=== PATIENT | female | born 1985 | race Caucasian/White ===

== ENCOUNTER 2017-05-19 05:19 | Inpatient (IN) | payer MEDICAID ==
[2017-05-19] MEDS ORDERED: Ondansetron 4 MG/2 ML SDV IVPUSH ONE (05:29)
[2017-05-19] MEDS ORDERED: Sodium Chloride 0.9% 1,000 ML IV ONE ×3 (05:30→09:45)
[2017-05-19] MEDS ORDERED: Sodium Chloride 0.9% 1,000 ML IV SCH ×2 (05:30→06:45)
[2017-05-19] MEDS ORDERED: Ketorolac 30 MG/ML SDV IVPUSH ONE (05:44)
[2017-05-19] MEDS ORDERED: Pantoprazole 40 MG Vial IVPUSH ONE (05:44)
[2017-05-19 06:05] LABS: CHLORIDE,CL 94 mmol/L (98-110); SODIUM,NA 138 mmol/L (136-146)
--- NOTE | 2017-05-19 06:15 | EDM.PDOC ---
ED HPI GENERAL MEDICAL PROBLEM - General Chief Complaint: Abdominal Pain Stated Complaint: PANCREATITIS Time Seen by Provider: 05/19/17 05:49 - History of Present Illness INITIAL COMMENTS - FREE TEXT/NARRATIVE: HISTORY AND PHYSICAL: History of present illness: Patient is a 32-year-old white female presents with a concern of abdominal pain patient states she has history of pancreatitis she denies trauma fever chills vomiting diarrhea urinary symptoms vaginal discharge or irregular bleeding or other complaints Review of systems: As per history of present illness and below otherwise all systems reviewed and negative. Past medical history: As per history of present illness and as reviewed below otherwise noncontributory. Surgical history: As per history of present illness and as reviewed below otherwise noncontributory. Social history: No reported history of drug or alcohol abuse. Family history: As per history of present illness and as reviewed below otherwise noncontributory. Physical exam: HEENT: Atraumatic, normocephalic, pupils reactive, negative for conjunctival pallor or scleral icterus, mucous membranes moist, throat clear, neck supple, nontender, trachea midline. Lungs: Clear to auscultation, breath sounds equal bilaterally, chest nontender. Heart: S1S2, regular, negative for clicks, rubs, or JVD. Abdomen: Soft, nondistended, no localized tenderness. Negative for masses or hepatosplenomegaly. Negative for costovertebral tenderness. Pelvis: Stable nontender. Genitourinary: Deferred. Rectal: Deferred. Extremities: Atraumatic, negative for cords or calf pain. Neurovascular unremarkable. Neuro: Awake, alert, oriented. Cranial nerves II through XII unremarkable. Cerebellum unremarkable. Motor and sensory unremarkable throughout. Exam nonfocal. Diagnostics: CBC CMP amylase lipase UA hCG CT abdomen and pelvis with IV contrast Therapeutics: Normal saline 1 L bolus and Toradol 30 mg IV Zofran 4 mg IV Impression: #1 abdominal pain Definitive disposition and diagnosis as appropriate pending reevaluation and review of above. - Related Data Allergies Allergy/AdvReac Type Severity Reaction Status Date / Time No Known Allergies Allergy Verified 05/19/17 05:32 Home Meds: Home Meds . [No Known Home Meds] 05/19/17 [History] Past Medical History - Past Health History Medical/Surgical History: Denies Medical/Surgical History Gastrointestinal History: Reports: Pancreatitis Social & Family History - Family History Family Medical History: Noncontributory - Tobacco Use Smoking Status *Q: Never Smoker - Caffeine Use Caffeine Use: Reports: Soda - Recreational Drug Use Recreational Drug Use: No ED ROS GENERAL - Review of Systems Review Of Systems: ROS reveals no pertinent complaints other than HPI. ED EXAM, GENERAL - Physical Exam Exam: See Below (See dictation) Course - Vital Signs Last Recorded V/S: Last Vital Signs Temp 35.9 C 05/19/17 05:28 Pulse 121 H 05/19/17 05:28 Resp 20 05/19/17 05:28 BP 93/63 05/19/17 05:28 Pulse Ox 97 05/19/17 05:28 - Orders/Labs/Meds Orders: Active Orders 24 hr Category Date Time Status Abdomen Pelvis w Cont [CT] Stat Exams 05/19/17 05:47 Ordered ETHANOL BLOOD MEDICAL [CHEM] Stat Lab 05/19/17 07:02 Ordered cefTRIAXone [Rocephin in Dextrose,Iso-Osm 1 GM/50 ML] 1 Med 05/19/17 07:07 Ordered gm Premix Bag 1 bag IV ONETIME Medication Orders Ceftriaxone Sodium/Dextrose 1 (gm/ Premix) 50 mls @ 100 mls/hr IV ONETIME ONE Stop: 05/19/17 07:36 Labs: Laboratory Tests 05/19/17 05/19/17 05/19/17 Range/Units 05:32 05:32 05:32 WBC 17.46 H (4.0-11.0) K/uL RBC 4.58 (4.30-5.90) M/uL Hgb 15.1 (12.0-16.0) g/dL Hct 43.2 (36.0-46.0) % MCV 94.3 (80.0-98.0) fL MCH 33.0 H (27.0-32.0) pg MCHC 35.0 (31.0-37.0) g/dL RDW Std Deviation 44.2 (28.0-62.0) fl RDW Coeff of [place] 13 (11.0-15.0) % Plt Count 339 (150-400) K/uL MPV 8.60 (7.40-12.00) fL Neut % (Auto) 71.4 (48.0-80.0) % Lymph % (Auto) 19.2 (16.0-40.0) % [place] % (Auto) 8.1 (0.0-15.0) % Eos % (Auto) 1.0 (0.0-7.0) % Baso % (Auto) 0.3 (0.0-1.5) % Neut # (Auto) 12.5 H (1.4-5.7) K/uL Lymph # (Auto) 3.4 H (0.6-2.4) K/uL [facility] # (Auto) 1.4 H (0.0-0.8) K/uL Eos # (Auto) 0.2 (0.0-0.7) K/uL Baso # (Auto) 0.1 (0.0-0.1) K/uL Nucleated RBC % 0.0 /100WBC Nucleated RBCs # 0 K/uL Sodium 138 (136-146) mmol/L Potassium 3.1 L (3.5-5.1) mmol/L Chloride 94 L (98-110) mmol/L Carbon Dioxide 23 (21-31) mmol/L BUN 12 (6.0-23.0) mg/dL Creatinine 0.9 (0.6-1.5) mg/dL Est Cr Clr Drug Dosing 78.21 mL/min Estimated GFR (MDRD) > 60.0 ml/min Glucose 128 H (60-110) mg/dL Calcium 10.0 (8.8-10.8) mg/dL Total Bilirubin 0.5 (0.1-1.5) mg/dL AST 29 (5-40) IU/L ALT 22 (8-54) IU/L Alkaline Phosphatase 97 (40-150) Total Protein 8.3 H (6.0-8.0) g/dL Albumin 4.1 (3.5-5.0) g/dL Globulin 4.2 H (2.0-3.5) g/dL Albumin/Globulin Ratio 1.0 L (1.3-2.8) Amylase 422 H (10-90) U/L Lipase 1661 H (7-80) U/L Urine Color Urine Appearance Urine pH (5.0-8.0) Ur Specific Luck (1.001-1.035) Urine Protein (NEGATIVE) mg/dL Urine Glucose (UA) (NEGATIVE) mg/dL Urine Ketones (NEGATIVE) mg/dL Urine Occult Blood (NEGATIVE) Urine Nitrite (NEGATIVE) Urine Bilirubin (NEGATIVE) Urine Ictotest Urine Urobilinogen (<2.0) EU/dL Ur Leukocyte Esterase (NEGATIVE) Urine RBC (0-2/HPF) Urine WBC (0-5/HPF) Ur Epithelial Cells (NONE-FEW) Urine Bacteria (NEGATIVE) Urine HCG, Qual NEGATIVE (NEGATIVE) Urine Opiates Screen (NEGATIVE) Ur Oxycodone Screen (NEGATIVE) Urine Methadone Screen (NEGATIVE) Ur Barbiturates Screen (NEGATIVE) Ur Phencyclidine Scrn (NEGATIVE) Ur Amphetamine Screen (NEGATIVE) U Methamphetamines Scrn (NEGATIVE) U Benzodiazepines Scrn (NEGATIVE) U Cocaine Metab Screen (NEGATIVE) U Marijuana (THC) Screen (NEGATIVE) 05/19/17 05/19/17 Range/Units 06:40 06:40 WBC (4.0-11.0) K/uL RBC (4.30-5.90) M/uL Hgb (12.0-16.0) g/dL Hct (36.0-46.0) % MCV (80.0-98.0) fL MCH (27.0-32.0) pg MCHC (31.0-37.0) g/dL RDW Std Deviation (28.0-62.0) fl RDW Coeff of [place] (11.0-15.0) % Plt Count (150-400) K/uL MPV (7.40-12.00) fL Neut % (Auto) (48.0-80.0) % Lymph % (Auto) (16.0-40.0) % [facility] % (Auto) (0.0-15.0) % Eos % (Auto) (0.0-7.0) % Baso % (Auto) (0.0-1.5) % Neut # (Auto) (1.4-5.7) K/uL Lymph # (Auto) (0.6-2.4) K/uL [facility] # (Auto) (0.0-0.8) K/uL Eos # (Auto) (0.0-0.7) K/uL Baso # (Auto) (0.0-0.1) K/uL Nucleated RBC % /100WBC Nucleated RBCs # K/uL Sodium (136-146) mmol/L Potassium (3.5-5.1) mmol/L Chloride (98-110) mmol/L Carbon Dioxide (21-31) mmol/L BUN (6.0-23.0) mg/dL Creatinine (0.6-1.5) mg/dL Est Cr Clr Drug Dosing mL/min Estimated GFR (MDRD) ml/min Glucose (60-110) mg/dL Calcium (8.8-10.8) mg/dL Total Bilirubin (0.1-1.5) mg/dL AST (5-40) IU/L ALT (8-54) IU/L Alkaline Phosphatase (40-150) Total Protein (6.0-8.0) g/dL Albumin (3.5-5.0) g/dL Globulin (2.0-3.5) g/dL Albumin/Globulin Ratio (1.3-2.8) Amylase (10-90) U/L Lipase (7-80) U/L Urine Color YELLOW Urine Appearance CLOUDY Urine pH 5.5 (5.0-8.0) Ur Specific Luck >= 1.030 (1.001-1.035) Urine Protein 30 (NEGATIVE) mg/dL Urine Glucose (UA) NEGATIVE (NEGATIVE) mg/dL Urine Ketones 15 H (NEGATIVE) mg/dL Urine Occult Blood MODERATE (NEGATIVE) Urine Nitrite NEGATIVE (NEGATIVE) Urine Bilirubin MODERATE H (NEGATIVE) Urine Ictotest POSITIVE Urine Urobilinogen 0.2 (<2.0) EU/dL Ur Leukocyte Esterase SMALL (NEGATIVE) Urine RBC 8-12 (0-2/HPF) Urine WBC 20-25 (0-5/HPF) Ur Epithelial Cells MODERATE (NONE-FEW) Urine Bacteria 2+ H (NEGATIVE) Urine HCG, Qual (NEGATIVE) Urine Opiates Screen NEGATIVE (NEGATIVE) Ur Oxycodone Screen NEGATIVE (NEGATIVE) Urine Methadone Screen NEGATIVE (NEGATIVE) Ur Barbiturates Screen NEGATIVE (NEGATIVE) Ur Phencyclidine Scrn NEGATIVE (NEGATIVE) Ur Amphetamine Screen NEGATIVE (NEGATIVE) U Methamphetamines Scrn NEGATIVE (NEGATIVE) U Benzodiazepines Scrn NEGATIVE (NEGATIVE) U Cocaine Metab Screen NEGATIVE (NEGATIVE) U Marijuana (THC) Screen NEGATIVE (NEGATIVE) Meds: Medications Generic Name Dose Route Start Last Admin Trade Name Freq PRN Reason Stop Dose Admin Ceftriaxone Sodium/Dextrose 1 50 mls @ 100 mls/hr 05/19/17 07:07 gm/ Premix IV 05/19/17 07:36 ONETIME ONE Discontinued Medications Generic Name Dose Route Start Last Admin Trade Name Jackie PRN Reason Stop Dose Admin Hydromorphone HCl 1 mg 05/19/17 06:58 05/19/17 07:03 Dilaudid IVPUSH 05/19/17 06:59 1 mg ONETIME ONE Administration Sodium Chloride 1,000 mls @ 999 mls/hr 05/19/17 05:30 05/19/17 05:39 Normal Saline IV 999 mls/hr ASDIRECTED CARLITOS Administration Sodium Chloride 1,000 mls @ 999 mls/hr 05/19/17 05:30 05/19/17 07:00 Normal Saline IV 05/19/17 06:30 999 mls/hr .Bolus ONE Administration Ketorolac Tromethamine 30 mg 05/19/17 05:44 05/19/17 05:53 Toradol IVPUSH 05/19/17 05:45 30 mg ONETIME ONE Administration Ondansetron HCl 4 mg 05/19/17 05:29 05/19/17 05:39 Zofran IVPUSH 05/19/17 05:30 4 mg ONETIME ONE Administration Pantoprazole Sodium 40 mg 05/19/17 05:44 05/19/17 05:55 Protonix Iv IVPUSH 05/19/17 05:45 40 mg NOW ONE Administration Departure - Departure Time of Disposition: 07:07 Disposition: Refer to Observation Condition: Good Clinical Impression: Abdominal pain, Pancreatitis, UTI (urinary tract infection) - Discharge Information Referrals: PCP,None [Primary Care Provider] - Forms: ED Department Discharge - My Orders Last 24 Hours: My Active Orders 05/19/17 05:47 Abdomen Pelvis w Cont [CT] Stat 05/19/17 07:02 ETHANOL BLOOD MEDICAL [CHEM] Stat 05/19/17 07:07 cefTRIAXone [Rocephin in Dextrose,Iso-Osm 1 GM/50 ML] 1 gm Premix Bag 1 bag IV ONETIME - Assessment/Plan Last 24 Hours: My Active Orders 05/19/17 05:47 Abdomen Pelvis w Cont [CT] Stat 05/19/17 07:02 ETHANOL BLOOD MEDICAL [CHEM] Stat 05/19/17 07:07 cefTRIAXone [Rocephin in Dextrose,Iso-Osm 1 GM/50 ML] 1 gm Premix Bag 1 bag IV ONETIME
[2017-05-19] MEDS ORDERED: HYDROmorphone 1 MG/ML Syringe IVPUSH ONE (06:58)
[2017-05-19] MEDS ORDERED: cefTRIAXone 1 GM in Premix Bag 1 BAG IV ONE (07:07)
[2017-05-19] MEDS ORDERED: Iopamidol 755 MG/ML 500 ML Multipack Bottle IVPUSH STA (07:50)
[2017-05-19] MEDS ORDERED: Ondansetron 4 MG/2 ML SDV IVPUSH PRN (09:13)
[2017-05-19] MEDS ORDERED: Sodium Chloride 0.9% 2.5 ML Syringe FLUSH PRN (09:13)
[2017-05-19] MEDS ORDERED: Morphine 4 MG/ML Syringe IVPUSH PRN (09:13)
[2017-05-19] MEDS ORDERED: Sodium Chloride 0.9% 10 ML Syringe FLUSH PRN (09:13)
[2017-05-19] MEDS ORDERED: Sodium Chloride 0.45% 1,000 ML IV SCH (09:30)
[2017-05-19] MEDS ORDERED: LORazepam 2 MG/ML SDV IVPUSH PRN (09:46)
[2017-05-19] MEDS: HYDROmorphone 1 MG/ML Syringe IVPUSH PRN ×4 (10:17→22:10)
[2017-05-19] MEDS: Folic Acid 50 MG/10 ML MDV SUBCUT SCH (10:22)
--- NOTE | 2017-05-19 10:23 | PCM.HP ---
<Iraida Bishop M - Last Filed: 05/19/17 10:16> H&P History of Present Illness - General Date of Service: 05/19/17 Admit Problem/Dx: Admission Diagnosis/Problem Admission Diagnosis/Problem Pancreatitis Source of Information: Patient History Limitations: Reports: No Limitations - History of Present Illness Initial Comments - Free Text/Narative: This 32 year old female with pmh of alcoholic pancreatitis presented to the ED with concerns of abdominal and mid back pain that started 2 days ago, but worsened significantly this morning at 3 am. She reports she drinks approximately 5 drinks of vodka nightly. She denies waking up feeling like she needs to have a drink and doesn't get shaky. She reports having pancreatitis 3 other times over the last 2 years ad has been told she has a cyst on her pancreas, she has not seen a GI specialist or had a biopsy. She reports after the first time of pancreatitis she went to inpatient rehab in [place], [place]. But she continues to drink and reports not wanting to quit at this time. She denies drinking for emotional or mental health reasons, she reports its "hereditary". She denies CAD, HTN, or DM. She denies any other recreational drug use and no tobacco use. In the ED leukocytosis noted, 17,460, K+ 3.1, Cl 94, amylase 422, lipase 1661, Ua revealed UTI with + 2 bacteria, sm leuk esterase, WBC 20-25, neg nitrite. Ct revealed acute pancreatitis with moderate inflammation/edema surrounding the pancreas, there is a cystic lesion in the pancreatic head, which she is aware of from previous bouts of pancreatitis. UC pending. She wsa gien Rocephin and 2 l bolus in ED. She was noted to be tachycardic. - Related Data Allergies/Adverse Reactions: Allergies Allergy/AdvReac Type Severity Reaction Status Date / Time No Known Allergies Allergy Verified 05/19/17 05:32 Home Medications: Home Meds . [No Known Home Meds] 05/19/17 [History] Past Medical History - Past Health History Medical/Surgical History: Denies Medical/Surgical History Cardiovascular History: Reports: None. Denies: Afib, Blood Clots/VTE/DVT, CAD, High Cholesterol, Hypertension, SC Respiratory History: Reports: None. Denies: Asthma, COPD, PE, Sleep Apnea, SOB Gastrointestinal History: Reports: Pancreatitis Genitourinary History: Reports: None. Denies: Acute Renal Failure, Chronic Renal Insuffiency Musculoskeletal History: Reports: None Psychiatric History: Reports: Addiction (Alcohol) Endocrine/Metabolic History: Reports: None. Denies: Diabetes, Type II, Obesity/ BMI 30+ - Past Surgical History Head Surgeries/Procedures: Reports: None Social & Family History - Family History Family Medical History: Noncontributory - Tobacco Use Smoking Status *Q: Never Smoker - Caffeine Use Caffeine Use: Reports: Soda - Alcohol Use Days Per Week of Alcohol Use: 5 Number of Drinks Per Day: 10 Total Drinks Per Week: 50 Date of Last Drink: 05/19/17 Time of Last Drink: 21:00 Alcohol Use Frequency: Daily - Recreational Drug Use Recreational Drug Use: No H&P Review of Systems - Review of Systems: Review Of Systems: See Below General: Reports: No Symptoms. Denies: Fever, Chills, Malaise, Weakness HEENT: Reports: No Symptoms. Denies: Headaches, Sinus Congestion, Sore Throat Pulmonary: Reports: No Symptoms. Denies: Shortness of Breath, Wheezing, Cough, Sputum Cardiovascular: Reports: No Symptoms. Denies: Chest Pain, Palpitations, Edema, Lightheadedness Gastrointestinal: Reports: Abdominal Pain (epigastric radiates to back), Nausea. Denies: Black Stool, Bloody Stool, Decreased Appetite, Vomiting Genitourinary: Reports: No Symptoms. Denies: Dysuria, Frequency, Burning, Pain Musculoskeletal: Reports: No Symptoms Skin: Reports: No Symptoms Psychiatric: Reports: No Symptoms. Denies: Confusion Neurological: Reports: Tremors (scant tremors noted and very figidity.). Denies : Headache Hematologic/Lymphatic: Reports: No Symptoms Immunologic: Reports: No Symptoms Exam - Exam Exam: See Below - Vital Signs Vital Signs: Last Vital Signs Temp 96.7 F 05/19/17 05:28 Pulse 121 H 05/19/17 05:28 Resp 20 05/19/17 05:28 BP 93/63 05/19/17 05:28 Pulse Ox 97 05/19/17 05:28 Weight: 150 lb 5.684 oz - Exam General: Alert, Oriented, Cooperative HEENT: Conjunctiva Clear, Mucosa Moist & Aten, Pupils Reactive Lungs: Clear to Auscultation, Normal Respiratory Effort Cardiovascular: Regular Rate, Regular Rhythm GI/Abdominal Exam: Normal Bowel Sounds, Soft, No Organomegaly, No Distention, No Abnormal Bruit, No Mass, Pelvis Stable, Tender (epigastric). No: Guarding, Rigid Back Exam: Normal Inspection, Full Range of Motion, NT Extremities: Normal Inspection, Normal Range of Motion, Non-Tender, No Pedal Edema, Normal Capillary Refill Neuro Extensive - Mental Status: Alert, Oriented x3, Normal Mood/Affect, Normal Cognition Neuro Extensive - Motor, Sensory, Reflexes: Tremor (fine tremors noted, likely alcohol withdrawl.) Psychiatric: Alert, Normal Mood, Anxious - Patient Data Result Diagrams: 05/19/17 05:32 05/19/17 05:32 *Q Meaningful Use (ADM) - VTE *Q VTE Criteria *Q: - VTE Risk Assess *Q Each Risk Factor Represents 1 Point: Other Risk Factor Total Score 1 Point Risk Factors: 1 Each Risk Factor Represents 2 Points: None Total Score 2 Point Risk Factors: 0 Each Risk Factor Represents 3 Points: None Total Score 3 Point Risk Factors: 0 Each Risk Factor Represents 5 Points: None Total Score 5 Point Risk Factors: 0 Venous Thromboembolism Risk Factor Score *Q: 1 - Stroke *Q Stroke Criteria *Q: - AMI *Q AMI Criteria *Q: - Problem List (1) Acute alcoholic pancreatitis SNOMED Code(s): 241588206 ICD Code: K85.20 - ALCOHOL INDUCED ACUTE PANCREATITIS WITHOUT NECROSIS OR INFCT Status: Acute Current Visit: Yes QualifierTitle: Acute pancreatitis complication: no infection or necrosis Qualified Code(s): K85.20 - Alcohol induced acute pancreatitis without necrosis or infection (2) Abdominal pain SNOMED Code(s): 26048462 ICD Code: R10.9 - UNSPECIFIED ABDOMINAL PAIN Status: Acute Current Visit : Yes QualifierTitle: Abdominal location: epigastric Qualified Code(s): R10.13 - Epigastric pain (3) UTI (urinary tract infection) SNOMED Code(s): 39356989 ICD Code: N39.0 - URINARY TRACT INFECTION, SITE NOT SPECIFIED Status: Acute Current Visit: Yes QualifierTitle: Urinary tract infection type: acute cystitis Hematuria presence: without hematuria Qualified Code(s): N30.00 - Acute cystitis without hematuria (4) Alcohol abuse SNOMED Code(s): 74797745 ICD Code: F10.10 - ALCOHOL ABUSE, UNCOMPLICATED Status: Chronic Current Visit: Yes Problem List Initiated/Reviewed/Updated: Yes Orders Last 24hrs: Active Orders 24 hr Category Date Time Status Patient Status [ADT] Routine ADT 05/19/17 09:13 Active Bedrest Bathroom Privileges [RC] ASDIRECTED Care 05/19/17 09:13 Active CIWAA Assessment [RC] ASDIRECTED Care 05/19/17 09:24 Active Cardiac Monitoring [RC] CONTINUOUS Care 05/19/17 09:19 Inactive Intake and Output [RC] QSHIFT Care 05/19/17 09:19 Active May Shower [RC] ASDIRECTED Care 05/19/17 09:13 Active Oxygen Therapy [RC] PRN Care 05/19/17 09:13 Active Pulse Oximetry [RC] CONTINUOUS Care 05/19/17 09:15 Active Telemetry Monitoring [Cardiac Monitoring] [RC] . Care 05/19/17 09:23 Active DIRECTED VTE/DVT Education [RC] PER UNIT ROUTINE Care 05/19/17 09:13 Active Vital Signs [RC] Q4H Care 05/19/17 09:13 Active Nothing per Oral Now Diet [DIET] Diet 05/19/17 Breakfast Active CBC WITH AUTO DIFF [HEME] AM Lab 05/20/17 05:11 Ordered CBC WITH AUTO DIFF [HEME] AM Lab 05/21/17 05:11 Ordered CBC WITH AUTO DIFF [HEME] AM Lab 05/22/17 05:11 Ordered CBC WITH AUTO DIFF [HEME] AM Lab 05/23/17 05:11 Ordered CBC WITH AUTO DIFF [HEME] AM Lab 05/24/17 05:11 Ordered COMPREHENSIVE METABOLIC PN,CMP [CHEM] AM Lab 05/20/17 05:11 Ordered COMPREHENSIVE METABOLIC PN,CMP [CHEM] AM Lab 05/21/17 05:11 Ordered COMPREHENSIVE METABOLIC PN,CMP [CHEM] AM Lab 05/22/17 05:11 Ordered COMPREHENSIVE METABOLIC PN,CMP [CHEM] AM Lab 05/23/17 05:11 Ordered COMPREHENSIVE METABOLIC PN,CMP [CHEM] AM Lab 05/24/17 05:11 Ordered LIPASE [CHEM] DAILY Lab 05/20/17 05:00 Ordered LIPASE [CHEM] DAILY Lab 05/21/17 05:00 Ordered LIPASE [CHEM] DAILY Lab 05/22/17 05:00 Ordered MAGNESIUM [CHEM] DAILY Lab 05/20/17 05:00 Ordered MAGNESIUM [CHEM] DAILY Lab 05/21/17 05:00 Ordered MAGNESIUM [CHEM] DAILY Lab 05/22/17 05:00 Ordered PHOSPHORUS [CHEM] DAILY Lab 05/20/17 05:00 Ordered PHOSPHORUS [CHEM] DAILY Lab 05/21/17 05:00 Ordered PHOSPHORUS [CHEM] DAILY Lab 05/22/17 05:00 Ordered Folic Acid Med 05/19/17 10:00 Active 1 mg SUBCUT DAILY HYDROmorphone [Dilaudid] Med 05/19/17 09:46 Active 1 mg IVPUSH Q3H PRN LORazepam [Ativan] Med 05/19/17 09:46 Active See Protocol IVPUSH Q4H PRN Ondansetron [Zofran] Med 05/19/17 09:13 Active 4 mg IVPUSH Q4H PRN Sodium Chloride 0.9% [Normal Saline] 1,000 ml Med 05/19/17 09:45 Active IV .BOLUS Sodium Chloride 0.9% [Normal Saline] 1,000 ml Med 05/19/17 09:23 Active IV .Bolus Sodium Chloride 0.9% [Normal Saline] 1,000 ml Med 05/19/17 09:30 Active IV ASDIRECTED Sodium Chloride 0.9% [Saline Flush] Med 05/19/17 09:13 Active 10 ml FLUSH ASDIRECTED PRN Sodium Chloride 0.9% [Saline Flush] Med 05/19/17 09:13 Active 2.5 ml FLUSH ASDIRECTED PRN Thiamine [Vitamin B-1] Med 05/19/17 10:00 Active 100 mg IV DAILY Peripheral IV Insertion Adult [OM.PC] Routine Oth 05/19/17 09:13 Ordered Resuscitation Status Routine Resus Stat 05/19/17 09:13 Ordered Medication Orders Folic Acid (Folic Acid) 1 mg SUBCUT DAILY CARLITOS Hydromorphone HCl (Dilaudid) 1 mg IVPUSH Q3H PRN PRN Reason: Pain Sodium Chloride (Normal Saline) 1,000 mls @ 250 mls/hr IV ASDIRECTED CARLITOS Sodium Chloride (Normal Saline) 1,000 mls @ 999 mls/hr IV .Bolus ONE Stop: 05/19/17 10:23 Last Admin: 05/19/17 09:56 Dose: 999 mls/hr Sodium Chloride (Normal Saline) 1,000 mls @ 999 mls/hr IV .BOLUS ONE Stop: 05/19/17 10:45 Lorazepam (Ativan) 0 mg IVPUSH Q4H PRN; Protocol PRN Reason: CIWAA Ondansetron HCl (Zofran) 4 mg IVPUSH Q4H PRN PRN Reason: Nausea Sodium Chloride (Saline Flush) 10 ml FLUSH ASDIRECTED PRN PRN Reason: Keep Vein Open Sodium Chloride (Saline Flush) 2.5 ml FLUSH ASDIRECTED PRN PRN Reason: Keep Vein Open Thiamine HCl (Vitamin B-1) 100 mg IV DAILY CARLITOS Assessment/Plan Comment:: This 32 year old female admitted with acute alcoholic pancreatitis 1. Acute alcoholic pancreatitis: Will aggressively fluid hydrate, 2 L more bolus now, then NS 250 mls/hr. Will replace K+ with NS 40 meq today. Check magnesium and phosphorus due to alcoholism. Dilaudid for pain control and Zofran for nausea. NPO, may have scant ice chips. Recheck labwork in am, including lipase. Monitor on telemetry due to hypokalemia. 2. UTI: UC pending. Continue Rocephin. 3. Alcohol abuse: Will place on CIWAA protocol with Ativan. Has no hx of seizures from withdrawl. Place on Thiamine and folic acid daily. Monitor electrolytes. VTE prophylaxis: SCDs for now. Ambulating encouraged. DIspo: 3-4 days pending improvement. <Ariana Mccarty - Last Filed: 05/19/17 18:08> H&P History of Present Illness - General Admit Problem/Dx: Admission Diagnosis/Problem Admission Diagnosis/Problem Pancreatitis Epigastric Pain Score (Numeric/FACES): 6 Exam - Vital Signs Vital Signs: Last Vital Signs Temp 98.9 F 05/19/17 17:13 Pulse 88 05/19/17 17:13 Resp 20 05/19/17 17:13 BP 162/101 H 05/19/17 17:13 Pulse Ox 100 05/19/17 17:13 - Patient Data Result Diagrams: 05/19/17 05:32 05/19/17 05:32 *Q Meaningful Use (ADM) - VTE *Q VTE Criteria *Q: - Stroke *Q Stroke Criteria *Q: - AMI *Q AMI Criteria *Q: Orders Last 24hrs: Active Orders 24 hr Category Date Time Status Patient Status [ADT] Routine ADT 05/19/17 09:13 Active Antiembolic Devices [RC] PER UNIT ROUTINE Care 05/19/17 10:39 Active Bedrest Bathroom Privileges [RC] ASDIRECTED Care 05/19/17 09:13 Active CIWAA Assessment [RC] Q4H Care 05/19/17 09:24 Active Cardiac Monitoring [RC] CONTINUOUS Care 05/19/17 09:19 Inactive Intake and Output [RC] QSHIFT Care 05/19/17 09:19 Active May Shower [RC] ASDIRECTED Care 05/19/17 09:13 Active Oxygen Therapy [RC] PRN Care 05/19/17 09:13 Active Pulse Oximetry [RC] CONTINUOUS Care 05/19/17 09:15 Active Telemetry Monitoring [Cardiac Monitoring] [RC] . Care 05/19/17 09:23 Active DIRECTED VTE/DVT Education [RC] PER UNIT ROUTINE Care 05/19/17 09:13 Active Vital Signs [RC] Q4H Care 05/19/17 09:13 Active Nothing per Oral Now Diet [DIET] Diet 05/19/17 Breakfast Active CBC WITH AUTO DIFF [HEME] AM Lab 05/20/17 05:11 Ordered CBC WITH AUTO DIFF [HEME] AM Lab 05/21/17 05:11 Ordered CBC WITH AUTO DIFF [HEME] AM Lab 05/22/17 05:11 Ordered CBC WITH AUTO DIFF [HEME] AM Lab 05/23/17 05:11 Ordered CBC WITH AUTO DIFF [HEME] AM Lab 05/24/17 05:11 Ordered COMPREHENSIVE METABOLIC PN,CMP [CHEM] AM Lab 05/20/17 05:11 Ordered COMPREHENSIVE METABOLIC PN,CMP [CHEM] AM Lab 05/21/17 05:11 Ordered COMPREHENSIVE METABOLIC PN,CMP [CHEM] AM Lab 05/22/17 05:11 Ordered COMPREHENSIVE METABOLIC PN,CMP [CHEM] AM Lab 05/23/17 05:11 Ordered COMPREHENSIVE METABOLIC PN,CMP [CHEM] AM Lab 05/24/17 05:11 Ordered LIPASE [CHEM] DAILY Lab 05/20/17 05:00 Ordered LIPASE [CHEM] DAILY Lab 05/21/17 05:00 Ordered LIPASE [CHEM] DAILY Lab 05/22/17 05:00 Ordered MAGNESIUM [CHEM] DAILY Lab 05/20/17 05:00 Ordered MAGNESIUM [CHEM] DAILY Lab 05/21/17 05:00 Ordered MAGNESIUM [CHEM] DAILY Lab 05/22/17 05:00 Ordered PHOSPHORUS [CHEM] DAILY Lab 05/20/17 05:00 Ordered PHOSPHORUS [CHEM] DAILY Lab 05/21/17 05:00 Ordered PHOSPHORUS [CHEM] DAILY Lab 05/22/17 05:00 Ordered Folic Acid Med 05/19/17 10:00 Active 1 mg SUBCUT DAILY HYDROmorphone [Dilaudid] Med 05/19/17 09:46 Active 1 mg IVPUSH Q3H PRN LORazepam [Ativan] Med 05/19/17 09:46 Active See Protocol IVPUSH Q4H PRN Ondansetron [Zofran] Med 05/19/17 09:13 Active 4 mg IVPUSH Q4H PRN Sodium Chloride 0.9% [Normal Saline] 1,000 ml Med 05/19/17 09:30 Active IV ASDIRECTED Sodium Chloride 0.9% [Saline Flush] Med 05/19/17 09:13 Active 10 ml FLUSH ASDIRECTED PRN Sodium Chloride 0.9% [Saline Flush] Med 05/19/17 09:13 Active 2.5 ml FLUSH ASDIRECTED PRN Sodium Chloride 0.9% with KCl [Normal Saline with 40 Med 05/19/17 10:30 Active mEq KCl] 1,000 ml IV ASDIRECTED Thiamine [Vitamin B-1] Med 05/19/17 10:00 Active 100 mg IV DAILY cefTRIAXone [Rocephin in Dextrose,Iso-Osm 1 GM/50 ML] 1 Med 05/20/17 07:00 Active gm Premix Bag 1 bag IV Q24H Peripheral IV Insertion Adult [OM.PC] Routine Oth 05/19/17 09:13 Ordered SCD [Sequential Compression Device] [OM.PC] Routine Oth 05/19/17 10:39 Ordered Resuscitation Status Routine Resus Stat 05/19/17 09:13 Ordered Medication Orders Folic Acid (Folic Acid) 1 mg SUBCUT DAILY CARLITOS Last Admin: 05/19/17 10:22 Dose: 1 mg Hydromorphone HCl (Dilaudid) 1 mg IVPUSH Q3H PRN PRN Reason: Pain Last Admin: 05/19/17 14:02 Dose: 1 mg Admin: 05/19/17 10:17 Dose: 1 mg Sodium Chloride (Normal Saline) 1,000 mls @ 250 mls/hr IV ASDIRECTED CARLITOS Last Admin: 05/19/17 15:06 Dose: 250 mls/hr Potassium Chloride/Sodium Chloride (Normal Saline With 40 Meq Kcl) 1,000 mls @ 98.039 mls/hr IV ASDIRECTED CARLITOS Stop: 05/19/17 20:41 Last Admin: 05/19/17 12:49 Dose: 98.039 mls/hr Ceftriaxone Sodium/Dextrose 1 (gm/ Premix) 50 mls @ 100 mls/hr IV Q24H CARLITOS Lorazepam (Ativan) 0 mg IVPUSH Q4H PRN; Protocol PRN Reason: CIWAA Ondansetron HCl (Zofran) 4 mg IVPUSH Q4H PRN PRN Reason: Nausea Sodium Chloride (Saline Flush) 10 ml FLUSH ASDIRECTED PRN PRN Reason: Keep Vein Open Sodium Chloride (Saline Flush) 2.5 ml FLUSH ASDIRECTED PRN PRN Reason: Keep Vein Open Thiamine HCl (Vitamin B-1) 100 mg IV DAILY [facility] Last Admin: 05/19/17 10:26 Dose: 100 mg Assessment/Plan Comment:: Gi referral upon discharge Patient was counseled for more than 5 min to stop drinking.
[2017-05-19] MEDS: Thiamine 200 MG/2 ML MDV IV SCH (10:26)
[2017-05-19] MEDS ORDERED: Sodium Chloride 0.9% with KCl 1,000 ML IV SCH (10:30)
[2017-05-19] MEDS ORDERED: Magnesium Sulfate/Water 4 GM in Premix Bag 1 BAG IV ONE (11:02)
--- NOTE | 2017-05-19 12:54 | CT ---
EXAM DATE: 05/19/17 PATIENT'S AGE: 32 Patient: ALDEN BORGES Facility: [place], [place] Site . Site : [id number] Study: CT Abdomen/Pelvis [id number]/22/2017 7:56:48 AM Ordering Physician: Doctor Rinaldi Final Report: INDICATION: Mid abdominal pain. TECHNIQUE: CT abdomen and pelvis acquired with IV contrast. COMPARISON: None. FINDINGS: LOWER CHEST: Unremarkable. LIVER: Unremarkable. Normal in size and attenuation. No masses. GALLBLADDER AND BILE DUCTS: Unremarkable. No stones or inflammation. No biliary dilatation. PANCREAS: There is moderate inflammation/ edema surrounding the pancreas. There is a 1 cm cystic lesion in the pancreatic head on image 56. Pancreatic duct is normal in caliber. No other pancreatic abnormality. SPLEEN: Unremarkable. Normal in size. No masses. ADRENAL GLANDS: Unremarkable. No nodules. KIDNEYS: Unremarkable. No masses, stones, or hydronephrosis. GI TRACT: Unremarkable. Normal in caliber. No sign of mass or inflammation. VASCULATURE: Unremarkable. LYMPH NODES: No lymphadenopathy. OMENTUM/PERITONEUM/ABDOMINAL WALL: Unremarkable. No sign of mass or infiltration. No free air or significant free fluid. PELVIS: Unremarkable. BONES: Unremarkable for age. IMPRESSION: Acute pancreatitis. 1 cm cystic lesion in the pancreatic head could represent a benign cyst, cystic neoplasm, and less likely a pseudocyst. Remainder of the exam is unremarkable. Dictated by Grabiel Escoto MD @ 05/19/2017 8:12:55 AM Dictated by: Grabiel Escoto MD @ 05/19/2017 08:12:59 (Electronic Signature) Report Signed by Proxy. [facility]
[2017-05-19] MEDS: Sodium Chloride 0.9% 1,000 ML IV SCH ×2 (15:06→22:28)
[2017-05-20] MEDS: HYDROmorphone 1 MG/ML Syringe IVPUSH PRN ×7 (01:51→21:29)
[2017-05-20] MEDS: Sodium Chloride 0.9% 1,000 ML IV SCH ×4 (03:16→21:35)
[2017-05-20 05:36] LABS: CHLORIDE,CL 106 mmol/L (98-110); SODIUM,NA 135 mmol/L (136-146)
[2017-05-20] MEDS: cefTRIAXone 1 GM in Premix Bag 1 BAG IV SCH (07:40)
[2017-05-20] MEDS ORDERED: Magnesium Sulfate/Water 2 GM in Premix Bag 1 BAG IV ONE (09:30)
[2017-05-20] MEDS: Thiamine 200 MG/2 ML MDV IV SCH (09:59)
[2017-05-20] MEDS: Folic Acid 50 MG/10 ML MDV SUBCUT SCH (09:59)
[2017-05-20] MEDS: Phosphorus #1 250 MG Tab PO SCH ×2 (11:42→18:10)
--- NOTE | 2017-05-20 21:51 | PCM.PN ---
- General Info Date of Service: 05/20/17 Admission Dx/Problem (Free Text): Admission Diagnosis/Problem Admission Diagnosis/Problem Pancreatitis Subjective Update: Patient pain improved , lipase decreased to 700 , no nausea, no vomiting - Review of Systems General: Reports: No Symptoms HEENT: Reports: No Symptoms Pulmonary: Reports: No Symptoms Cardiovascular: Reports: No Symptoms Gastrointestinal: Reports: Abdominal Pain Genitourinary: Reports: No Symptoms Musculoskeletal: Reports: No Symptoms Skin: Reports: No Symptoms Neurological: Reports: No Symptoms Psychiatric: Reports: No Symptoms - Patient Data Vitals - Most Recent: Last Vital Signs Temp 97.8 F 05/20/17 20:00 Pulse 103 H 05/20/17 20:00 Resp 16 05/20/17 20:00 BP 130/85 05/20/17 20:00 Pulse Ox 92 L 05/20/17 20:00 Weight - Most Recent: 150 lb 5.684 oz I&O - Last 24 Hours: Intake & Output 05/20/17 05/20/17 05/20/17 06:59 14:59 22:59 Intake Total 1099 1050 2169 Output Total 200 2650 Balance 899 1050 -481 Lab Results Last 24 Hours: Laboratory Results - last 24 hr 05/20/17 05/20/17 05/20/17 Range/Units 04:41 04:41 04:41 WBC 9.63 (4.0-11.0) K/uL RBC 3.59 L (4.30-5.90) M/uL Hgb 11.7 L (12.0-16.0) g/dL Hct 35.3 L (36.0-46.0) % MCV 98.3 H (80.0-98.0) fL MCH 32.6 H (27.0-32.0) pg MCHC 33.1 (31.0-37.0) g/dL RDW Std Deviation 47.0 (28.0-62.0) fl RDW Coeff of [place] 13 (11.0-15.0) % Plt Count 228 (150-400) K/uL MPV 8.90 (7.40-12.00) fL Neut % (Auto) 63.0 (48.0-80.0) % Lymph % (Auto) 24.0 (16.0-40.0) % [place] % (Auto) 9.3 (0.0-15.0) % Eos % (Auto) 3.3 (0.0-7.0) % Baso % (Auto) 0.4 (0.0-1.5) % Neut # (Auto) 6.1 H (1.4-5.7) K/uL Lymph # (Auto) 2.3 (0.6-2.4) K/uL [place] # (Auto) 0.9 H (0.0-0.8) K/uL Eos # (Auto) 0.3 (0.0-0.7) K/uL Baso # (Auto) 0.0 (0.0-0.1) K/uL Nucleated RBC % 0.0 /100WBC Nucleated RBCs # 0 K/uL Sodium 135 L (136-146) mmol/L Potassium 3.5 (3.5-5.1) mmol/L Chloride 106 (98-110) mmol/L Carbon Dioxide 22 (21-31) mmol/L BUN 6 (6.0-23.0) mg/dL Creatinine 0.5 L (0.6-1.5) mg/dL Est Cr Clr Drug Dosing 140.78 mL/min Estimated GFR (MDRD) > 60.0 ml/min Glucose 80 (60-110) mg/dL Calcium 6.5 L (8.8-10.8) mg/dL Phosphorus 1.8 L (2.4-4.7) mg/dL Magnesium 1.3 L (1.5-2.3) mEq/L Total Bilirubin 0.8 (0.1-1.5) mg/dL AST 20 (5-40) IU/L ALT 12 (8-54) IU/L Alkaline Phosphatase 69 (40-150) Total Protein 5.3 L (6.0-8.0) g/dL Albumin 2.9 L (3.5-5.0) g/dL Globulin 2.4 (2.0-3.5) g/dL Albumin/Globulin Ratio 1.2 L (1.3-2.8) Lipase 759 H (7-80) U/L Med Orders - Current: Current Medications Folic Acid (Folic Acid) 1 mg SUBCUT DAILY [facility] Last Admin: 05/20/17 09:59 Dose: 1 mg Hydromorphone HCl (Dilaudid) 1 mg IVPUSH Q3H PRN PRN Reason: Pain Last Admin: 05/20/17 21:29 Dose: 1 mg Ceftriaxone Sodium/Dextrose 1 (gm/ Premix) 50 mls @ 100 mls/hr IV Q24H [facility] Last Admin: 05/20/17 07:40 Dose: 100 mls/hr Sodium Chloride (Normal Saline) 1,000 mls @ 150 mls/hr IV ASDIRECTED [facility] Last Admin: 05/20/17 21:35 Dose: 150 mls/hr Lorazepam (Ativan) 0 mg IVPUSH Q4H PRN; Protocol PRN Reason: CIWAA Ondansetron HCl (Zofran) 4 mg IVPUSH Q4H PRN PRN Reason: Nausea Sodium Chloride (Saline Flush) 10 ml FLUSH ASDIRECTED PRN PRN Reason: Keep Vein Open Sodium Chloride (Saline Flush) 2.5 ml FLUSH ASDIRECTED PRN PRN Reason: Keep Vein Open Sodium Phosphate (Neutra-Phos) 250 mg PO QID [facility] Stop: 05/21/17 09:00 Last Admin: 05/20/17 18:10 Dose: 250 mg Thiamine HCl (Vitamin B-1) 100 mg IV DAILY [facility] Last Admin: 05/20/17 09:59 Dose: 100 mg Discontinued Medications Hydromorphone HCl (Dilaudid) 1 mg IVPUSH ONETIME ONE Stop: 05/19/17 06:59 Last Admin: 05/19/17 07:03 Dose: 1 mg Sodium Chloride (Normal Saline) 1,000 mls @ 999 mls/hr IV ASDIRECTED [facility] Last Admin: 05/19/17 05:39 Dose: 999 mls/hr Sodium Chloride (Normal Saline) 1,000 mls @ 999 mls/hr IV .Bolus ONE Stop: 05/19/17 06:30 Last Admin: 05/19/17 07:00 Dose: 999 mls/hr Ceftriaxone Sodium/Dextrose 1 (gm/ Premix) 50 mls @ 100 mls/hr IV ONETIME ONE Stop: 05/19/17 07:36 Last Admin: 05/19/17 07:16 Dose: 100 mls/hr Sodium Chloride (Sodium Chloride 0.45%) 1,000 mls @ 150 mls/hr IV ASDIRECTED [facility] Sodium Chloride (Normal Saline) 1,000 mls @ 150 mls/hr IV ASDIRECTED [facility] Last Admin: 05/20/17 07:24 Dose: 250 mls/hr Sodium Chloride (Normal Saline) 1,000 mls @ 999 mls/hr IV .Bolus ONE Stop: 05/19/17 10:23 Last Admin: 05/19/17 09:56 Dose: 999 mls/hr Sodium Chloride (Normal Saline) 1,000 mls @ 999 mls/hr IV .BOLUS ONE Stop: 05/19/17 10:45 Last Admin: 05/19/17 11:35 Dose: 999 mls/hr Potassium Chloride/Sodium Chloride (Normal Saline With 40 Meq Kcl) 1,000 mls @ 98.039 mls/hr IV ASDIRECTED [facility] Stop: 05/19/17 20:41 Last Admin: 05/19/17 12:49 Dose: 98.039 mls/hr Magnesium Sulfate 4 gm/ Premix 100 mls @ 50 mls/hr IV ONETIME ONE Stop: 05/19/17 13:01 Last Admin: 05/19/17 12:50 Dose: 50 mls/hr Magnesium Sulfate 2 gm/ Premix 50 mls @ 50 mls/hr IV ONETIME ONE Stop: 05/20/17 10:29 Last Admin: 05/20/17 10:15 Dose: 50 mls/hr Iopamidol (Isovue Multipack-370 (76%)) 95 ml IVPUSH ONETIME STA Stop: 05/19/17 07:51 Last Admin: 05/19/17 07:52 Dose: 95 ml Ketorolac Tromethamine (Toradol) 30 mg IVPUSH ONETIME ONE Stop: 05/19/17 05:45 Last Admin: 05/19/17 05:53 Dose: 30 mg Morphine Sulfate (Morphine) 4 mg IVPUSH Q4H PRN PRN Reason: Pain (severe 7-10) Stop: 05/20/17 09:19 Last Admin: 05/19/17 09:29 Dose: 4 mg Ondansetron HCl (Zofran) 4 mg IVPUSH ONETIME ONE Stop: 05/19/17 05:30 Last Admin: 05/19/17 05:39 Dose: 4 mg Pantoprazole Sodium (Protonix Iv) 40 mg IVPUSH NOW ONE Stop: 05/19/17 05:45 Last Admin: 05/19/17 05:55 Dose: 40 mg - Exam General: Alert, Oriented HEENT: Pupils Equal, Pupils Reactive Neck: Supple, Trachea Midline Lungs: Clear to Auscultation, Normal Respiratory Effort Cardiovascular: Regular Rate, Regular Rhythm, No Murmurs GI/Abdominal Exam: Normal Bowel Sounds Back Exam: Normal Inspection Extremities: Normal Inspection - Problem List & Annotations (1) Pancreatic cyst SNOMED Code(s): 76642413 Code(s): K86.2 - CYST OF PANCREAS Status: Acute Current Visit: Yes (2) Abdominal pain SNOMED Code(s): 38543922 Code(s): R10.9 - UNSPECIFIED ABDOMINAL PAIN Status: Acute Current Visit: Yes Qualifiers: Abdominal location: epigastric Qualified Code(s): R10.13 - Epigastric pain (3) Acute alcoholic pancreatitis SNOMED Code(s): 970676216 Code(s): K85.20 - ALCOHOL INDUCED ACUTE PANCREATITIS WITHOUT NECROSIS OR INFCT Status: Acute Current Visit: Yes Qualifiers: Acute pancreatitis complication: no infection or necrosis Qualified Code(s) : K85.20 - Alcohol induced acute pancreatitis without necrosis or infection (4) UTI (urinary tract infection) SNOMED Code(s): 63834175 Code(s): N39.0 - URINARY TRACT INFECTION, SITE NOT SPECIFIED Status: Acute Current Visit: Yes Qualifiers: Urinary tract infection type: acute cystitis Hematuria presence: without hematuria Qualified Code(s): N30.00 - Acute cystitis without hematuria (5) Alcohol abuse SNOMED Code(s): 40108572 Code(s): F10.10 - ALCOHOL ABUSE, UNCOMPLICATED Status: Chronic Current Visit: Yes (6) Recurrent pancreatitis SNOMED Code(s): 531319638 Code(s): K86.1 - OTHER CHRONIC PANCREATITIS Status: Acute Current Visit: Yes (7) Disorder of electrolytes SNOMED Code(s): 718303847 Code(s): E87.8 - OTH DISORDERS OF ELECTROLYTE AND FLUID BALANCE, NEC Status : Acute Current Visit: Yes - Problem List Review Problem List Initiated/Reviewed/Updated: Yes - My Orders Last 24 Hours: My Active Orders 05/20/17 11:45 Sodium Chloride 0.9% [Normal Saline] 1,000 ml IV ASDIRECTED 05/20/17 12:00 Phosphorus #1 [Neutra-Phos] 250 mg PO QID 05/20/17 15:40 Communication Order [RC] DAILY 05/20/17 Dinner Full Liquid Diet [DIET] - Plan Plan:: A/p Recurrent acute pancreatitis pancreatic cyst alcohol abuse UTI Electrolytes disturbances Dvt prof Gi prof Plan will start patient on clear liquid diet and advance as tolerated , not more than full liquid diet today Pain management with Dilaudid, CIWA protocol , replace electrolytes, continue Rocephine1 gram iv q daily , replace electrolytes, Gi referral upon discharge, heparin sq, protonix iv for Gi prof.
[2017-05-21] MEDS: Phosphorus #1 250 MG Tab PO SCH ×2 (00:11→05:59)
[2017-05-21] MEDS: HYDROmorphone 1 MG/ML Syringe IVPUSH PRN ×3 (00:49→09:37)
[2017-05-21] MEDS: Sodium Chloride 0.9% 1,000 ML IV SCH (04:29)
[2017-05-21 06:11] LABS: CHLORIDE,CL 109 mmol/L (98-110); SODIUM,NA 138 mmol/L (136-146)
[2017-05-21] MEDS: cefTRIAXone 1 GM in Premix Bag 1 BAG IV SCH (06:33)
[2017-05-21] MEDS ORDERED: Magnesium Sulfate/Water 2 GM in Premix Bag 1 BAG IV ONE (08:19)
[2017-05-21] MEDS: Folic Acid 50 MG/10 ML MDV SUBCUT SCH (09:18)
[2017-05-21] MEDS: Thiamine 200 MG/2 ML MDV IV SCH (09:20)
--- NOTE | 2017-05-27 17:17 | PCM.DCSUM1 ---
Discharge Summary - Hospital Course HPI Initial Comments: This 32 year old female with pmh of alcoholic pancreatitis presented to the ED with concerns of abdominal and mid back pain that started 2 days ago, but worsened significantly this morning at 3 am. She reports she drinks approximately 5 drinks of vodka nightly. She denies waking up feeling like she needs to have a drink and doesn't get shaky. She reports having pancreatitis 3 other times over the last 2 years ad has been told she has a cyst on her pancreas, she has not seen a GI specialist or had a biopsy. She reports after the first time of pancreatitis she went to inpatient rehab in [place], [place]. But she continues to drink and reports not wanting to quit at this time. She denies drinking for emotional or mental health reasons, she reports its "hereditary". She denies CAD, HTN, or DM. She denies any other recreational drug use and no tobacco use. In the ED leukocytosis noted, 17,460, K+ 3.1, Cl 94, amylase 422, lipase 1661, Ua revealed UTI with + 2 bacteria, sm leuk esterase, WBC 20-25, neg nitrite. Ct revealed acute pancreatitis with moderate inflammation/edema surrounding the pancreas, there is a cystic lesion in the pancreatic head, which she is aware of from previous bouts of pancreatitis. UC pending. She wsa gien Rocephin and 2 l bolus in ED. She was noted to be tachycardic. - Discharge Data Discharge Date: 05/21/17 Discharge Disposition: Home, Self-Care 01 Condition: Good - Discharge Diagnosis/Problem(s) (1) Pancreatic cyst SNOMED Code(s): 56810905 ICD Code: K86.2 - CYST OF PANCREAS Status: Acute (2) Abdominal pain SNOMED Code(s): 18956609 ICD Code: R10.9 - UNSPECIFIED ABDOMINAL PAIN Status: Acute Qualifiers: Abdominal location: epigastric Qualified Code(s): R10.13 - Epigastric pain (3) Acute alcoholic pancreatitis SNOMED Code(s): 161463560 ICD Code: K85.20 - ALCOHOL INDUCED ACUTE PANCREATITIS WITHOUT NECROSIS OR INFCT Status: Acute Qualifiers: Acute pancreatitis complication: no infection or necrosis Qualified Code(s) : K85.20 - Alcohol induced acute pancreatitis without necrosis or infection (4) UTI (urinary tract infection) SNOMED Code(s): 03414443 ICD Code: N39.0 - URINARY TRACT INFECTION, SITE NOT SPECIFIED Status: Acute Qualifiers: Urinary tract infection type: acute cystitis Hematuria presence: without hematuria Qualified Code(s): N30.00 - Acute cystitis without hematuria (5) Alcohol abuse SNOMED Code(s): 66524816 ICD Code: F10.10 - ALCOHOL ABUSE, UNCOMPLICATED Status: Chronic (6) Recurrent pancreatitis SNOMED Code(s): 270007941 ICD Code: K86.1 - OTHER CHRONIC PANCREATITIS Status: Acute (7) Disorder of electrolytes SNOMED Code(s): 960987661 ICD Code: E87.8 - OTH DISORDERS OF ELECTROLYTE AND FLUID BALANCE, NEC Status: Acute - Patient Summary/Data Hospital Course: Patient admitted in the hospital with diagnostic of pancreatitis and alcohol abuse , UTI , was treated with iv fluid ,Rocephine iv , pain medication and NPO , CIWA protocol. Patient improved , tolerated diet and she was discharged home to f/up with PCP , patient was advised to stop drinking. - Discharge Plan Prescriptions/Med Rec: Sulfamethoxazole/Trimethoprim [Bactrim Ds Tablet] 1 each PO BID #14 tablet Home Medications: Home Meds Sulfamethoxazole/Trimethoprim [Bactrim Ds Tablet] 1 each PO BID #14 tablet 05/21 [Rx] Patient Handouts: Acute Pancreatitis, [id number], Sulfamethoxazole; Trimethoprim, SMX-TMP tablets Forms: ED Department Discharge Referrals: Winter Dejesus NP [Ordering Only Provider] - 07/15/17 1:00 pm (Winter GONG is at the [facility] in [place] at [address] [place] [address]. ) - Patient Data Vitals - Most Recent: Last Vital Signs Temp 98.1 F 05/21/17 08:00 Pulse 79 05/21/17 08:00 Resp 18 05/21/17 08:00 BP 129/91 H 05/21/17 08:00 Pulse Ox 95 05/21/17 08:00 Weight - Most Recent: 150 lb 5.684 oz Med Orders - Current: Current Medications Discontinued Medications Folic Acid (Folic Acid) 1 mg SUBCUT DAILY [facility] Last Admin: 05/21/17 09:18 Dose: 1 mg Hydromorphone HCl (Dilaudid) 1 mg IVPUSH ONETIME ONE Stop: 05/19/17 06:59 Last Admin: 05/19/17 07:03 Dose: 1 mg Hydromorphone HCl (Dilaudid) 1 mg IVPUSH Q3H PRN PRN Reason: Pain Last Admin: 05/21/17 09:37 Dose: 1 mg Sodium Chloride (Normal Saline) 1,000 mls @ 999 mls/hr IV ASDIRECTED [facility] Last Admin: 05/19/17 05:39 Dose: 999 mls/hr Sodium Chloride (Normal Saline) 1,000 mls @ 999 mls/hr IV .Bolus ONE Stop: 05/19/17 06:30 Last Admin: 05/19/17 07:00 Dose: 999 mls/hr Ceftriaxone Sodium/Dextrose 1 (gm/ Premix) 50 mls @ 100 mls/hr IV ONETIME ONE Stop: 05/19/17 07:36 Last Admin: 05/19/17 07:16 Dose: 100 mls/hr Sodium Chloride (Sodium Chloride 0.45%) 1,000 mls @ 150 mls/hr IV ASDIRECTED [facility] Sodium Chloride (Normal Saline) 1,000 mls @ 150 mls/hr IV ASDIRECTED [facility] Last Admin: 05/20/17 07:24 Dose: 250 mls/hr Sodium Chloride (Normal Saline) 1,000 mls @ 999 mls/hr IV .Bolus ONE Stop: 05/19/17 10:23 Last Admin: 05/19/17 09:56 Dose: 999 mls/hr Sodium Chloride (Normal Saline) 1,000 mls @ 999 mls/hr IV .BOLUS ONE Stop: 05/19/17 10:45 Last Admin: 05/19/17 11:35 Dose: 999 mls/hr Potassium Chloride/Sodium Chloride (Normal Saline With 40 Meq Kcl) 1,000 mls @ 98.039 mls/hr IV ASDIRECTED [facility] Stop: 05/19/17 20:41 Last Admin: 05/19/17 12:49 Dose: 98.039 mls/hr Ceftriaxone Sodium/Dextrose 1 (gm/ Premix) 50 mls @ 100 mls/hr IV Q24H [facility] Last Admin: 05/21/17 06:33 Dose: 100 mls/hr Magnesium Sulfate 4 gm/ Premix 100 mls @ 50 mls/hr IV ONETIME ONE Stop: 05/19/17 13:01 Last Admin: 05/19/17 12:50 Dose: 50 mls/hr Magnesium Sulfate 2 gm/ Premix 50 mls @ 50 mls/hr IV ONETIME ONE Stop: 05/20/17 10:29 Last Admin: 05/20/17 10:15 Dose: 50 mls/hr Sodium Chloride (Normal Saline) 1,000 mls @ 150 mls/hr IV ASDIRECTED [facility] Last Admin: 05/21/17 04:29 Dose: 150 mls/hr Magnesium Sulfate 2 gm/ Premix 50 mls @ 50 mls/hr IV ONETIME ONE Stop: 05/21/17 09:18 Last Admin: 05/21/17 09:21 Dose: 50 mls/hr Iopamidol (Isovue Multipack-370 (76%)) 95 ml IVPUSH ONETIME STA Stop: 05/19/17 07:51 Last Admin: 05/19/17 07:52 Dose: 95 ml Ketorolac Tromethamine (Toradol) 30 mg IVPUSH ONETIME ONE Stop: 05/19/17 05:45 Last Admin: 05/19/17 05:53 Dose: 30 mg Lorazepam (Ativan) 0 mg IVPUSH Q4H PRN; Protocol PRN Reason: CIWAA Morphine Sulfate (Morphine) 4 mg IVPUSH Q4H PRN PRN Reason: Pain (severe 7-10) Stop: 05/20/17 09:19 Last Admin: 05/19/17 09:29 Dose: 4 mg Ondansetron HCl (Zofran) 4 mg IVPUSH ONETIME ONE Stop: 05/19/17 05:30 Last Admin: 05/19/17 05:39 Dose: 4 mg Ondansetron HCl (Zofran) 4 mg IVPUSH Q4H PRN PRN Reason: Nausea Pantoprazole Sodium (Protonix Iv) 40 mg IVPUSH NOW ONE Stop: 05/19/17 05:45 Last Admin: 05/19/17 05:55 Dose: 40 mg Sodium Chloride (Saline Flush) 10 ml FLUSH ASDIRECTED PRN PRN Reason: Keep Vein Open Sodium Chloride (Saline Flush) 2.5 ml FLUSH ASDIRECTED PRN PRN Reason: Keep Vein Open Sodium Phosphate (Neutra-Phos) 250 mg PO QID [facility] Stop: 05/21/17 09:00 Last Admin: 05/21/17 05:59 Dose: 250 mg Thiamine HCl (Vitamin B-1) 100 mg IV DAILY [facility] Last Admin: 05/21/17 09:20 Dose: 100 mg *Q Meaningful Use (DIS) - VTE *Q VTE Criteria *Q: - Stroke *Q Stroke Criteria *Q: - AMI *Q AMI Criteria *Q:
== END 2017-05-21 11:25 | disposition home or self-care (01) | DRG 439 ==
LOC: MW.ED 05:19 → MW.MS 07:08 → OBSVTOIN 09:13 → MW.MS 17:16
PROVIDERS: ADMIT Internal Medicine; ATTEND Internal Medicine
DX: K85.20 Alcohol induced acute pancreatitis without necrosis or infection (principal); N39.0 Urinary tract infection, site not specified; K86.2 Cyst of pancreas; R10.13 Epigastric pain; F10.10 Alcohol abuse, uncomplicated; E87.8 Other disorders of electrolyte and fluid balance, not elsewhere classified; E87.6 Hypokalemia
CPT/HCPCS: 36415; 74177; 74177-26; 80053; 80305; 81001; 81025; 82150; 83690; 83735; 84100; 85025; 87086; 87088; 87186; 96361; 96365; 96375; 99283; 99285-25; A9270-GY; C9113; G0480; J0696; J1170; J1885; J2270; J2405; J3411; J3475; J3480; J7040; Q9967

== ENCOUNTER 2017-10-15 06:05 | Emergency (ER) | payer MEDICAID ==
[2017-10-15] MEDS ORDERED: Butorphanol 1 MG/ML SDV ONE (06:27)
[2017-10-15] MEDS ORDERED: Promethazine 25 MG/ML SDV ONE (06:27)
== END 2017-10-15 06:12 | disposition left against medical advice (07) ==
LOC: MW.ED 06:05
DX: Z53.21 Procedure and treatment not carried out due to patient leaving prior to being seen by health care provider (principal)

== ENCOUNTER 2017-11-03 07:04 | Emergency (ER) | payer MEDICAID ==
[2017-11-03] MEDS ORDERED: Sodium Chloride 0.9% 1,000 ML IV ONE (07:25)
[2017-11-03] MEDS ORDERED: Ondansetron 4 MG/2 ML SDV IVPUSH ONE (07:25)
[2017-11-03] MEDS ORDERED: Sodium Chloride 0.9% 10 ML Syringe FLUSH PRN (07:25)
[2017-11-03] MEDS ORDERED: Sodium Chloride 0.9% 2.5 ML Syringe FLUSH PRN (07:25)
--- NOTE | 2017-11-03 07:33 | EDM.PDOC ---
ED HPI GENERAL MEDICAL PROBLEM - General Chief Complaint: Abdominal Pain Stated Complaint: ABDOMINAL PAIN Time Seen by Provider: 11/03/17 07:10 Source of Information: Reports: Patient History Limitations: Reports: No Limitations - History of Present Illness INITIAL COMMENTS - FREE TEXT/NARRATIVE: History of present illness: []She has a history of alcoholic pancreatitis and presents with bilateral upper abdominal pain radiating to her shoulder blades that began 3 days ago. Patient denies any fevers but has had chills, nausea and vomiting. She denies any diarrhea, vaginal bleeding or difficulty urinating. Patient had an approximately 2 weeks ago at 19 weeks gestation in [place]. Review of systems: As per history of present illness and below otherwise all systems reviewed and negative. Past medical history: As per history of present illness and as reviewed below otherwise noncontributory. Surgical history: As per history of present illness and as reviewed below otherwise noncontributory. Social history: No reported history of drug or alcohol abuse. Family history: As per history of present illness and as reviewed below otherwise noncontributory. Physical exam: General: Well developed, well nourished in NAD HEENT: Atraumatic, normocephalic, pupils reactive, negative for conjunctival pallor or scleral icterus, mucous membranes moist, throat clear, neck supple, nontender, trachea midline. Lungs: Clear to auscultation, breath sounds equal bilaterally, chest nontender. Heart: S1S2, regular, negative for clicks, rubs, or JVD. Abdomen: Decreased bowel sounds, Soft, nondistended, upper abdominal tenderness without rebound or guarding. Negative for masses or hepatosplenomegaly. Negative for costovertebral tenderness. Pelvis: Stable nontender. Genitourinary: Deferred. Rectal: Deferred. Extremities: Atraumatic, negative for cords or calf pain. Neurovascular unremarkable. Neuro: Awake, alert, oriented. Cranial nerves II through XII unremarkable. Cerebellum unremarkable. Motor and sensory unremarkable throughout. Exam nonfocal. Diagnostics: []CBC is normal, chemistries normal lipase is within normal limits is negative Therapeutics: []She was IV hydrated with normal saline given morphine and Zofran pain and nausea Impression: []Epigastric pain likely GERD Plan: []Take Pepcid twice a day Tylenol for pain follow-up with primary care return if symptoms worsen or change Definitive disposition and diagnosis as appropriate pending reevaluation and review of above. upper abdomen, between shoulder blades Pain Score (Numeric/FACES): 7 - Related Data Allergies Allergy/AdvReac Type Severity Reaction Status Date / Time No Known Allergies Allergy Verified 11/03/17 07:20 Home Meds: Home Meds . [No Known Home Meds] 11/03/17 [History] Past Medical History - Past Health History Medical/Surgical History: Denies Medical/Surgical History Cardiovascular History: Reports: None Respiratory History: Reports: None Gastrointestinal History: Reports: Pancreatitis Genitourinary History: Reports: None Musculoskeletal History: Reports: None Psychiatric History: Reports: Addiction Other Psychiatric History: ETOH Endocrine/Metabolic History: Reports: None - Past Surgical History Head Surgeries/Procedures: Reports: None Social & Family History - Family History Family Medical History: Noncontributory Cardiac: Reports: [place] - Tobacco Use Smoking Status *Q: Never Smoker Second Hand Smoke Exposure: No - Caffeine Use Caffeine Use: Reports: Soda - Alcohol Use Days Per Week of Alcohol Use: 3 Number of Drinks Per Day: 3 Total Drinks Per Week: 9 - Recreational Drug Use Recreational Drug Use: No ED ROS GENERAL - Review of Systems Review Of Systems: See Below (See history of present illness) ED EXAM, GI/ABD - Physical Exam Exam: See Below (See history of present illness) Course - Vital Signs Last Recorded V/S: Last Vital Signs Temp 97.6 F 11/03/17 07:17 Pulse 105 H 11/03/17 07:17 Resp 18 11/03/17 07:17 BP 144/111 H 11/03/17 07:17 Pulse Ox 99 11/03/17 07:17 - Orders/Labs/Meds Orders: Active Orders 24 hr Category Date Time Status Sodium Chloride 0.9% [Saline Flush] Med 11/03/17 07:25 Active 10 ml FLUSH ASDIRECTED PRN Sodium Chloride 0.9% [Saline Flush] Med 11/03/17 07:25 Active 2.5 ml FLUSH ASDIRECTED PRN Saline Lock Insert [OM.PC] Stat Oth 11/03/17 07:24 Ordered Medication Orders Sodium Chloride (Saline Flush) 10 ml FLUSH ASDIRECTED PRN PRN Reason: Keep Vein Open Last Admin: 11/03/17 07:43 Dose: 10 ml Sodium Chloride (Saline Flush) 2.5 ml FLUSH ASDIRECTED PRN PRN Reason: Keep Vein Open Last Admin: 11/03/17 07:45 Dose: 2.5 ml Labs: Laboratory Tests 11/03/17 11/03/17 11/03/17 Range/Units 07:35 07:35 07:35 WBC 9.29 (4.0-11.0) K/uL RBC 4.18 L (4.30-5.90) M/uL Hgb 13.5 (12.0-16.0) g/dL Hct 40.0 (36.0-46.0) % MCV 95.7 (80.0-98.0) fL MCH 32.3 H (27.0-32.0) pg MCHC 33.8 (31.0-37.0) g/dL RDW Std Deviation 46.4 (28.0-62.0) fl RDW Coeff of [place] 13 (11.0-15.0) % Plt Count 292 (150-400) K/uL MPV 8.60 (7.40-12.00) fL Neut % (Auto) 63.7 (48.0-80.0) % Lymph % (Auto) 28.2 (16.0-40.0) % Jackson % (Auto) 5.8 (0.0-15.0) % Eos % (Auto) 2.0 (0.0-7.0) % Baso % (Auto) 0.3 (0.0-1.5) % Neut # (Auto) 5.9 H (1.4-5.7) K/uL Lymph # (Auto) 2.6 H (0.6-2.4) K/uL Jackson # (Auto) 0.5 (0.0-0.8) K/uL Eos # (Auto) 0.2 (0.0-0.7) K/uL Baso # (Auto) 0.0 (0.0-0.1) K/uL Nucleated RBC % 0.0 /100WBC Nucleated RBCs # 0 K/uL Sodium 138 (136-145) mmol/L Potassium 3.6 (3.5-5.1) mmol/L Chloride 102 (98-107) mmol/L Carbon Dioxide 23.3 (21.0-32.0) mmol/L BUN 7 (7.0-18.0) mg/dL Creatinine 0.7 (0.6-1.0) mg/dL Est Cr Clr Drug Dosing 100.55 mL/min Estimated GFR (MDRD) > 60.0 ml/min Glucose 98 (74-106) mg/dL Calcium 8.9 (8.5-10.1) mg/dL Total Bilirubin 0.2 (0.2-1.0) mg/dL AST 16 (15-37) IU/L ALT 23 (14-63) IU/L Alkaline Phosphatase 77 (46-116) U/L Total Protein 7.0 (6.4-8.2) g/dL Albumin 3.2 L (3.4-5.0) g/dL Globulin 3.8 H (2.0-3.5) g/dL Albumin/Globulin Ratio 0.8 L (1.3-2.8) Lipase 281 (73-393) U/L HCG, Quant 2.0 mIU/mL Blood Type 11/03/17 Range/Units 07:35 WBC (4.0-11.0) K/uL RBC (4.30-5.90) M/uL Hgb (12.0-16.0) g/dL Hct (36.0-46.0) % MCV (80.0-98.0) fL MCH (27.0-32.0) pg MCHC (31.0-37.0) g/dL RDW Std Deviation (28.0-62.0) fl RDW Coeff of [place] (11.0-15.0) % Plt Count (150-400) K/uL MPV (7.40-12.00) fL Neut % (Auto) (48.0-80.0) % Lymph % (Auto) (16.0-40.0) % Jackson % (Auto) (0.0-15.0) % Eos % (Auto) (0.0-7.0) % Baso % (Auto) (0.0-1.5) % Neut # (Auto) (1.4-5.7) K/uL Lymph # (Auto) (0.6-2.4) K/uL Jackson # (Auto) (0.0-0.8) K/uL Eos # (Auto) (0.0-0.7) K/uL Baso # (Auto) (0.0-0.1) K/uL Nucleated RBC % /100WBC Nucleated RBCs # K/uL Sodium (136-145) mmol/L Potassium (3.5-5.1) mmol/L Chloride (98-107) mmol/L Carbon Dioxide (21.0-32.0) mmol/L BUN (7.0-18.0) mg/dL Creatinine (0.6-1.0) mg/dL Est Cr Clr Drug Dosing mL/min Estimated GFR (MDRD) ml/min Glucose (74-106) mg/dL Calcium (8.5-10.1) mg/dL Total Bilirubin (0.2-1.0) mg/dL AST (15-37) IU/L ALT (14-63) IU/L Alkaline Phosphatase (46-116) U/L Total Protein (6.4-8.2) g/dL Albumin (3.4-5.0) g/dL Globulin (2.0-3.5) g/dL Albumin/Globulin Ratio (1.3-2.8) Lipase (73-393) U/L HCG, Quant mIU/mL Blood Type A POSITIVE Meds: Medications Generic Name Dose Route Start Last Admin Trade Name Freq PRN Reason Stop Dose Admin Sodium Chloride 10 ml 11/03/17 07:25 11/03/17 07:43 Saline Flush FLUSH 10 ml ASDIRECTED PRN Administration Keep Vein Open Sodium Chloride 2.5 ml 11/03/17 07:25 11/03/17 07:45 Saline Flush FLUSH 2.5 ml ASDIRECTED PRN Administration Keep Vein Open Discontinued Medications Generic Name Dose Route Start Last Admin Trade Name Freq PRN Reason Stop Dose Admin Famotidine 20 mg 11/03/17 08:48 Pepcid IVPUSH 11/03/17 08:49 ONETIME ONE Sodium Chloride 1,000 mls @ 999 mls/hr 11/03/17 07:25 11/03/17 07:43 Normal Saline IV 11/03/17 08:25 999 mls/hr .Bolus ONE Administration Morphine Sulfate 4 mg 11/03/17 07:49 11/03/17 07:57 Morphine IVPUSH 11/03/17 07:50 4 mg ONETIME ONE Administration Ondansetron HCl 4 mg 11/03/17 07:25 11/03/17 07:43 Zofran IVPUSH 11/03/17 07:26 4 mg ONETIME ONE Administration Departure - Departure Time of Disposition: 09:10 Disposition: Home, Self-Care 01 Condition: Good Clinical Impression: GERD (gastroesophageal reflux disease) Qualifiers: Esophagitis presence: esophagitis presence not specified Qualified Code(s): K21.9 - Gastro-esophageal reflux disease without esophagitis - Discharge Information Referrals: PCP,None [Primary Care Provider] - Forms: ED Department Discharge Additional Instructions: The following information is given to patients seen in the emergency department who are being discharged to home. This information is to outline your options for follow-up care. We provide all patients seen in our emergency department with a follow-up referral. The need for follow-up, as well as the timing and circumstances, are variable depending upon the specifics of your emergency department visit. If you don't have a primary care physician on staff, we will provide you with a referral. We always advise you to contact your personal physician following an emergency department visit to inform them of the circumstance of the visit and for follow-up with them and/or the need for any referrals to a consulting specialist. The emergency department will also refer you to a specialist when appropriate. This referral assures that you have the opportunity for follow-up care with a specialist. All of these measure are taken in an effort to provide you with optimal care, which includes your follow-up. Under all circumstances we always encourage you to contact your private physician who remains a resource for coordinating your care. When calling for follow-up care, please make the office aware that this follow-up is from your recent emergency room visit. If for any reason you are refused follow-up, please contact the [facility] Emergency Department at and asked to speak to the emergency department charge nurse. Take Pepcid twice a day, Tylenol for pain follow-up with your primary care doctor return if symptoms worsen or change - My Orders Last 24 Hours: My Active Orders 11/03/17 07:24 Saline Lock Insert [OM.PC] Stat 11/03/17 07:25 Sodium Chloride 0.9% [Saline Flush] 10 ml FLUSH ASDIRECTED PRN Sodium Chloride 0.9% [Saline Flush] 2.5 ml FLUSH ASDIRECTED PRN - Assessment/Plan Last 24 Hours: My Active Orders 11/03/17 07:24 Saline Lock Insert [OM.PC] Stat 11/03/17 07:25 Sodium Chloride 0.9% [Saline Flush] 10 ml FLUSH ASDIRECTED PRN Sodium Chloride 0.9% [Saline Flush] 2.5 ml FLUSH ASDIRECTED PRN
[2017-11-03] MEDS ORDERED: Morphine 4 MG/ML Syringe IVPUSH ONE (07:49)
[2017-11-03 08:27] LABS: CHLORIDE,CL 102 mmol/L (98-107); SODIUM,NA 138 mmol/L (136-145)
[2017-11-03] MEDS ORDERED: Famotidine 20 MG/2 ML SDV IVPUSH ONE (08:48)
== END 2017-11-03 09:31 | disposition home or self-care (01) ==
LOC: MW.ED 07:04
DX: K21.9 Gastro-esophageal reflux disease without esophagitis (principal)
CPT/HCPCS: 36415; 80053; 83690; 84702; 85025; 86900; 86901; 96361; 96374; 96375; 99284; J2270; J2405; J7040; 99283

== ENCOUNTER 2017-11-04 17:46 | Emergency (ER) | payer MEDICAID ==
[2017-11-04] MEDS ORDERED: Ketorolac 60 MG/2 ML SDV IM ONE (18:12)
--- NOTE | 2017-11-04 18:12 | EDM.PDOC ---
ED HPI GENERAL MEDICAL PROBLEM - General Chief Complaint: Back Pain or Injury Stated Complaint: SEVERE BACK PAIN Time Seen by Provider: 11/04/17 18:02 Source of Information: Reports: Patient History Limitations: Reports: No Limitations - History of Present Illness INITIAL COMMENTS - FREE TEXT/NARRATIVE: HISTORY AND PHYSICAL: History of present illness: Patient is a 32-year-old female who presents to the emergency room today with complaints of upper thoracic back pain. She states she has had this "unbearable " pain for the past 2-3 days. She denies any fever, chills, chest pain, shortness of breath, abdominal pain, nausea, vomiting, diarrhea or constipation. 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 She states she was given medication while here and had minimal pain relief; but not prescribed anything for home use. States that the thoracic back pain is midline and does not radiate anywhere. She has no numbness or tingling to her distal extremities. No urinary or fecal incontinence. She denies any recent injury, trauma or falls. Review of systems: As per history of present illness and below otherwise all systems reviewed and negative. Past medical history: As per history of present illness and as reviewed below otherwise noncontributory. Surgical history: As per history of present illness and as reviewed below otherwise noncontributory. Social history: No reported history of drug or alcohol abuse. Family history: As per history of present illness and as reviewed below otherwise noncontributory. Physical exam: General: Well-developed and well-nourished 32-year-old female. Alert and oriented. Nontoxic appearing and in no acute distress. HEENT: Atraumatic, normocephalic, pupils equal and reactive bilaterally, negative for conjunctival pallor or scleral icterus, mucous membranes moist, throat clear, neck supple, nontender, trachea midline. No drooling or trismus noted. No meningeal signs Lungs: Clear to auscultation, breath sounds equal bilaterally, chest nontender. Heart: S1S2, regular rate and rhythm without overt murmur Abdomen: Soft, nondistended, nontender. Negative for masses or hepatosplenomegaly. Negative for costovertebral tenderness. Pelvis: Stable nontender. Genitourinary: Deferred. Rectal: Deferred. C-spine/Back: Pinpoint vertebral tenderness upon palpation. No crepitus, step- offs or obvious deformities. Patient is ambulatory without difficulty or deficits. She has not been incontinent of urine or feces. Denies any numbness or tingling to her distal extremities. Skin: Intact, warm, dry. No lesions or rashes noted. Extremities: Atraumatic, moves all per self, negative for cords or calf pain. Neurovascular unremarkable. Neuro: Awake, alert, oriented. Cranial nerves II through XII unremarkable. Cerebellum unremarkable. Motor and sensory unremarkable throughout. Exam nonfocal. Notes: Patient recently had an , was approximately 20 weeks along. States she has had no OBGYN complications since procedure. Her most recent labs (11/03/2017) showed -negative HCG and normal CBC and CMP. Patient has no pinpoint vertebral tenderness upon her back evaluation. Skin is intact, warm, dry without erythema. Lab work which was done yesterday is within normal limits. She has no GI or abdominal complaints today. I will do a CT of her chest to rule out PE. She is agreeable to receiving Toradol and Norflex IM to assess if there is a muscular component to this. Patient feels improved after the IM injections. She does have a ride to home. I will prescribe her Flexeril and Cataflam. Encouraged her to follow up with her primary care provider. She voices understanding and is agreeable to plan of care. She denies any further questions at this time. Diagnostics: CT chest Therapeutics: IM Toradol and IM Norflex Impression: Thoracic back pain Plan: 1. Please take the Flexeril and Cataflam as prescribed. The Flexeril may cause drowsiness so do not take it while driving or needing to be functioning out of the house was illness. Do not take any additional NSAID such as ibuprofen or Aleve while taking the Cataflam. Please take with food. Take Tylenol for breakthrough pain. 2. Warm gentle heat and stretching to the area. 3. Follow up with your primary caregiver in the next 1-2 days. Return to the ED as needed and as discussed. Definitive disposition and diagnosis as appropriate pending reevaluation and review of above. Duration: Day(s): Upper Back Pain Score (Numeric/FACES): 8 - Related Data Allergies Allergy/AdvReac Type Severity Reaction Status Date / Time No Known Allergies Allergy Verified 11/04/17 17:55 Home Meds: Home Meds Non-Formulary Medication [NF Drug] 1 tab PO DAILY 11/04/17 [History] Past Medical History - Past Health History Medical/Surgical History: Denies Medical/Surgical History Cardiovascular History: Reports: None Respiratory History: Reports: None Gastrointestinal History: Reports: Pancreatitis Genitourinary History: Reports: None Musculoskeletal History: Reports: None Psychiatric History: Reports: Addiction Other Psychiatric History: ETOH Endocrine/Metabolic History: Reports: None - Past Surgical History Head Surgeries/Procedures: Reports: None Social & Family History - Family History Family Medical History: Noncontributory Cardiac: Reports: [place] - Tobacco Use Smoking Status *Q: Never Smoker - Caffeine Use Caffeine Use: Reports: Soda - Recreational Drug Use Recreational Drug Use: No ED ROS GENERAL - Review of Systems Review Of Systems: ROS reveals no pertinent complaints other than HPI. ED EXAM, UPPER BACK/NECK PAIN - Physical Exam Exam: See Below (See dictation) Course - Vital Signs Last Recorded V/S: Last Vital Signs Temp 98.3 F 11/04/17 19:09 Pulse 82 11/04/17 19:09 Resp 14 11/04/17 19:09 BP 137/92 H 11/04/17 19:09 Pulse Ox 99 11/04/17 19:09 - Orders/Labs/Meds Orders: Active Orders 24 hr Category Date Time Status Ang Chest [CT] Stat Exams 11/04/17 18:25 Taken Meds: Medications Discontinued Medications Generic Name Dose Route Start Last Admin Trade Name Freq PRN Reason Stop Dose Admin Ketorolac Tromethamine 60 mg 11/04/17 18:12 11/04/17 18:18 Toradol IM 11/04/17 18:13 60 mg ONETIME ONE Administration Orphenadrine Citrate 60 mg 11/04/17 18:12 11/04/17 18:18 Norflex IM 11/04/17 18:13 60 mg NOW STA Administration Departure - Departure Time of Disposition: 19:43 Disposition: Home, Self-Care 01 Clinical Impression: Thoracic back pain Qualifiers: Chronicity: acute Back pain laterality: midline Qualified Code(s): M54.6 - Pain in thoracic spine - Discharge Information Instructions: Thoracic Strain, [id number] Referrals: PCP,None [Primary Care Provider] - Forms: ED Department Discharge Additional Instructions: The following information is given to patients seen in the emergency department who are being discharged to home. This information is to outline your options for follow-up care. We provide all patients seen in our emergency department with a follow-up referral. The need for follow-up, as well as the timing and circumstances, are variable depending upon the specifics of your emergency department visit. If you don't have a primary care physician on staff, we will provide you with a referral. We always advise you to contact your personal physician following an emergency department visit to inform them of the circumstance of the visit and for follow-up with them and/or the need for any referrals to a consulting specialist. The emergency department will also refer you to a specialist when appropriate. This referral assures that you have the opportunity for follow-up care with a specialist. All of these measure are taken in an effort to provide you with optimal care, which includes your follow-up. Under all circumstances we always encourage you to contact your private physician who remains a resource for coordinating your care. When calling for follow-up care, please make the office aware that this follow-up is from your recent emergency room visit. If for any reason you are refused follow-up, please contact the [facility] Emergency Department at and asked to speak to the emergency department charge nurse. [facility] [address] [place] [id number]. Please take the Flexeril and Cataflam as prescribed. The Flexeril may cause drowsiness so do not take it while driving or needing to be functioning out of the house. Do not take any additional NSAID such as ibuprofen or Aleve while taking the Cataflam. Please take with food. Take Tylenol for breakthrough pain. 2. Warm gentle heat and stretching to the area. 3. Follow up with your primary caregiver in the next 1-2 days. Return to the ED as needed and as discussed. - My Orders Last 24 Hours: My Active Orders 11/04/17 18:25 Ang Chest [CT] Stat - Assessment/Plan Last 24 Hours: My Active Orders 11/04/17 18:25 Ang Chest [CT] Stat
--- NOTE | 2017-11-05 13:04 | CT ---
EXAM DATE: 11/04/17 PATIENT'S AGE: 32 Patient: ALDEN BORGES Facility: [place], [place] Site . Site : [id number] Study: CT Chest Angio [id number]/[id number] 6:53:30 PM Ordering Physician: Doctor Rinaldi Final Report: HISTORY: Back pain x2 days. Rule out pulmonary embolus. TECHNIQUE: The chest was scanned using helical technique at 1 mm after 50 cc [id number]. Sagittal and coronal reconstructions were performed. FINDINGS: Mediastinum and lashonda: Small mediastinal lymph nodes are present. No pathologic mediastinal or hilar lymphadenopathy. Cardiovascular structures: The thoracic aorta is normal in caliber. No dissection. The bolus in the pulmonary arteries is excellent at 372 Hounsfield units and the main pulmonary artery. No pulmonary embolus is identified. Heart is at the upper limits of normal. No pericardial effusion. Lungs and pleura: There is some dependent atelectasis posteriorly. No consolidation, pleural effusion or pneumothorax. Chest wall: No pathologic axillary lymphadenopathy. No chest wall mass. Upper abdomen: The visualized liver is homogeneous. Osseous structures: Normal for age. Peridiscal spurring is seen at T7-8. Visualized vertebral body heights maintained. IMPRESSION: 1. No pulmonary embolus is identified. 2. The thoracic aorta is free of aneurysm or dissection. 3. Dependent atelectasis in the posterior lungs. Dictated by Barbara Lindsey MD @ 11/04/2017 7:30:54 PM Please note that all CT scans at this facility use dose modulation, iterative reconstruction, and/or weight-based dosing when appropriate to reduce radiation dose to as low as reasonably achievable. Dictated by: Barbara Lindsey MD @ 11/04/2017 19:31:12 (Electronic Signature) Report Signed by Proxy. [facility]
== END 2017-11-04 19:50 | disposition home or self-care (01) ==
LOC: MW.ED 17:46
DX: M54.6 Pain in thoracic spine (principal)
CPT/HCPCS: 71275; 96372; 99284; J1885; J2360

== ENCOUNTER 2017-11-12 18:48 | Inpatient (IN) | payer MEDICAID ==
[2017-11-12] MEDS ORDERED: Ondansetron 4 MG/2 ML SDV IVPUSH ONE (19:15)
[2017-11-12] MEDS ORDERED: Ketorolac 30 MG/ML SDV IVPUSH ONE (19:15)
[2017-11-12] MEDS ORDERED: Sodium Chloride 0.9% 1,000 ML IV ONE (19:15)
--- NOTE | 2017-11-12 19:16 | EDM.PDOC ---
ED HPI GENERAL MEDICAL PROBLEM - General Chief Complaint: Abdominal Pain Stated Complaint: PT HAS STOMACH PAINS Time Seen by Provider: 11/12/17 19:16 Source of Information: Reports: Patient - History of Present Illness INITIAL COMMENTS - FREE TEXT/NARRATIVE: HISTORY AND PHYSICAL: History of present illness: Patient presents with epigastric pain 6 out of 10 radiating to the back since yesterday worsen today she does have a history of pancreatitis she did drink some alcohol and she developed pain clinically presuming pancreatitis for now we will follow lab and retract some intermittent nausea vomiting and diarrhea no prior surgery history on her abdomen No fever chills sweats no chest pain short of breath headache dizziness palpitation Review of systems: As per history of present illness and below otherwise all systems reviewed and negative. Past medical history: As per history of present illness and as reviewed below otherwise noncontributory. Surgical history: As per history of present illness and as reviewed below otherwise noncontributory. Social history: No reported history of drug or alcohol abuse. Family history: As per history of present illness and as reviewed below otherwise noncontributory. Physical exam: HEENT: Atraumatic, normocephalic, pupils reactive, negative for conjunctival pallor or scleral icterus, mucous membranes moist, throat clear, neck supple, nontender, trachea midline. Lungs: Clear to auscultation, breath sounds equal bilaterally, chest nontender. Heart: S1S2, regular, negative for clicks, rubs, or JVD. Abdomen: Soft, nondistended, nontender. Negative for masses or hepatosplenomegaly. Negative for costovertebral tenderness. Pelvis: Stable nontender. Genitourinary: Deferred. Rectal: Deferred. Extremities: Atraumatic, negative for cords or calf pain. Neurovascular unremarkable. Neuro: Awake, alert, oriented. Cranial nerves II through XII unremarkable. Cerebellum unremarkable. Motor and sensory unremarkable throughout. Exam nonfocal. Diagnostics: [CBC CMP and lipase UA hCG ]CT abdomen pelvis with contrast Therapeutics: [1 L normal saline bolus Zofran 8 mg IV Toradol 30 mg IV ] Impression: [ abdominal pain ] Definitive disposition and diagnosis as appropriate pending reevaluation and review of above. Upper Abd Pain Score (Numeric/FACES): 9 - Related Data Allergies Allergy/AdvReac Type Severity Reaction Status Date / Time No Known Allergies Allergy Verified 11/12/17 19:22 Home Meds: Home Meds Norgestimate-Ethinyl Estradiol [Ortho Tri-Cyclen 28 Tablet] 1 each PO DAILY [History] Past Medical History - Past Health History Medical/Surgical History: Denies Medical/Surgical History Cardiovascular History: Reports: None Respiratory History: Reports: None Gastrointestinal History: Reports: Pancreatitis Genitourinary History: Reports: None Musculoskeletal History: Reports: None Psychiatric History: Reports: Addiction Other Psychiatric History: ETOH Endocrine/Metabolic History: Reports: None - Past Surgical History Head Surgeries/Procedures: Reports: None Social & Family History - Family History Family Medical History: Noncontributory Cardiac: Reports: [place] - Caffeine Use Caffeine Use: Reports: Soda ED ROS GENERAL - Review of Systems Review Of Systems: ROS reveals no pertinent complaints other than HPI. ED EXAM, GENERAL - Physical Exam Exam: See Below Course - Vital Signs Last Recorded V/S: Last Vital Signs Temp 97.4 F 11/12/17 20:39 Pulse 88 11/12/17 20:39 Resp 18 11/12/17 20:39 BP 168/123 H 11/12/17 20:39 Pulse Ox 100 11/12/17 20:39 - Orders/Labs/Meds Orders: Active Orders 24 hr Category Date Time Status Abdomen Pelvis w Cont [CT] Stat Exams 11/12/17 19:32 Taken CULTURE BLOOD [BC] Stat Lab 11/12/17 20:42 Ordered CULTURE BLOOD [BC] Stat Lab 11/12/17 20:42 Ordered CULTURE URINE [RM] Stat Lab 11/12/17 19:40 Received HCG QUALITATIVE,URINE [URCHEM] Stat Lab 11/12/17 19:26 Ordered UA W/MICROSCOPIC [URIN] Stat Lab 11/12/17 19:26 Ordered Piperacillin/Tazobactam [Piperacil-Tazobact] 3.375 gm Med 11/12/17 20:42 Active Sodium Chloride 0.9% [Normal Saline] 50 ml IV ONETIME Sodium Chloride 0.9% [Normal Saline] 1,000 ml Med 11/12/17 21:00 Active IV ASDIRECTED Blood Culture x2 Reflex Set [OM.PC] Stat Oth 11/12/17 20:42 Ordered Medication Orders Piperacillin Sod/Tazobactam (Sod 3.375 gm/ Sodium Chloride) 50 mls @ 100 mls/ hr IV ONETIME ONE Stop: 11/12/17 21:11 Last Admin: 11/12/17 20:52 Dose: 100 mls/hr Sodium Chloride (Normal Saline) 1,000 mls @ 999 mls/hr IV ASDIRECTED CARLITOS Last Admin: 11/12/17 20:53 Dose: 999 mls/hr Labs: Laboratory Tests 11/12/17 11/12/17 11/12/17 Range/Units 19:22 19:22 19:22 WBC 13.00 H (4.0-11.0) K/uL RBC 4.27 L (4.30-5.90) M/uL Hgb 13.8 (12.0-16.0) g/dL Hct 40.1 (36.0-46.0) % MCV 93.9 (80.0-98.0) fL MCH 32.3 H (27.0-32.0) pg MCHC 34.4 (31.0-37.0) g/dL RDW Std Deviation 45.5 (28.0-62.0) fl RDW Coeff of [place] 13 (11.0-15.0) % Plt Count 334 (150-400) K/uL MPV 8.50 (7.40-12.00) fL Neut % (Auto) 62.2 (48.0-80.0) % Lymph % (Auto) 30.1 (16.0-40.0) % [place] % (Auto) 5.9 (0.0-15.0) % Eos % (Auto) 1.6 (0.0-7.0) % Baso % (Auto) 0.2 (0.0-1.5) % Neut # (Auto) 8.1 H (1.4-5.7) K/uL Lymph # (Auto) 3.9 H (0.6-2.4) K/uL [place] # (Auto) 0.8 (0.0-0.8) K/uL Eos # (Auto) 0.2 (0.0-0.7) K/uL Baso # (Auto) 0.0 (0.0-0.1) K/uL Nucleated RBC % 0.0 /100WBC Nucleated RBCs # 0 K/uL Sodium 135 L (136-145) mmol/L Potassium 4.0 (3.5-5.1) mmol/L Chloride 101 (98-107) mmol/L Carbon Dioxide 24.2 (21.0-32.0) mmol/L BUN 17 (7.0-18.0) mg/dL Creatinine 0.8 (0.6-1.0) mg/dL Est Cr Clr Drug Dosing 87.99 mL/min Estimated GFR (MDRD) > 60.0 ml/min Glucose 100 (74-106) mg/dL Calcium 8.3 L (8.5-10.1) mg/dL Total Bilirubin 0.6 (0.2-1.0) mg/dL AST 24 (15-37) IU/L ALT 19 (14-63) IU/L Alkaline Phosphatase 80 (46-116) U/L Total Protein 7.2 (6.4-8.2) g/dL Albumin 3.2 L (3.4-5.0) g/dL Globulin 4.0 H (2.0-3.5) g/dL Albumin/Globulin Ratio 0.8 L (1.3-2.8) Lipase 74592 H (73-393) U/L Urine Color Urine Appearance Urine pH (5.0-8.0) Ur Specific [place] (1.001-1.035) Urine Protein (NEGATIVE) mg/dL Urine Glucose (UA) (NEGATIVE) mg/dL Urine Ketones (NEGATIVE) mg/dL Urine Occult Blood (NEGATIVE) Urine Nitrite (NEGATIVE) Urine Bilirubin (NEGATIVE) Urine Urobilinogen (<2.0) EU/dL Ur Leukocyte Esterase (NEGATIVE) Urine RBC (0-2/HPF) Urine WBC (0-5/HPF) Ur Epithelial Cells (NONE-FEW) Urine Bacteria (NEGATIVE) Urine HCG, Qual (NEGATIVE) Ethyl Alcohol < 3.0 mg/dL 11/12/17 11/12/17 Range/Units 19:26 19:26 WBC (4.0-11.0) K/uL RBC (4.30-5.90) M/uL Hgb (12.0-16.0) g/dL Hct (36.0-46.0) % MCV (80.0-98.0) fL MCH (27.0-32.0) pg MCHC (31.0-37.0) g/dL RDW Std Deviation (28.0-62.0) fl RDW Coeff of [place] (11.0-15.0) % Plt Count (150-400) K/uL MPV (7.40-12.00) fL Neut % (Auto) (48.0-80.0) % Lymph % (Auto) (16.0-40.0) % [place] % (Auto) (0.0-15.0) % Eos % (Auto) (0.0-7.0) % Baso % (Auto) (0.0-1.5) % Neut # (Auto) (1.4-5.7) K/uL Lymph # (Auto) (0.6-2.4) K/uL [place] # (Auto) (0.0-0.8) K/uL Eos # (Auto) (0.0-0.7) K/uL Baso # (Auto) (0.0-0.1) K/uL Nucleated RBC % /100WBC Nucleated RBCs # K/uL Sodium (136-145) mmol/L Potassium (3.5-5.1) mmol/L Chloride (98-107) mmol/L Carbon Dioxide (21.0-32.0) mmol/L BUN (7.0-18.0) mg/dL Creatinine (0.6-1.0) mg/dL Est Cr Clr Drug Dosing mL/min Estimated GFR (MDRD) ml/min Glucose (74-106) mg/dL Calcium (8.5-10.1) mg/dL Total Bilirubin (0.2-1.0) mg/dL AST (15-37) IU/L ALT (14-63) IU/L Alkaline Phosphatase (46-116) U/L Total Protein (6.4-8.2) g/dL Albumin (3.4-5.0) g/dL Globulin (2.0-3.5) g/dL Albumin/Globulin Ratio (1.3-2.8) Lipase (73-393) U/L Urine Color YELLOW Urine Appearance CLOUDY Urine pH 7.0 (5.0-8.0) Ur Specific [place] 1.025 (1.001-1.035) Urine Protein TRACE (NEGATIVE) mg/dL Urine Glucose (UA) NEGATIVE (NEGATIVE) mg/dL Urine Ketones NEGATIVE (NEGATIVE) mg/dL Urine Occult Blood LARGE H (NEGATIVE) Urine Nitrite NEGATIVE (NEGATIVE) Urine Bilirubin NEGATIVE (NEGATIVE) Urine Urobilinogen 1.0 (<2.0) EU/dL Ur Leukocyte Esterase SMALL (NEGATIVE) Urine RBC 6-10 (0-2/HPF) Urine WBC 18-20 (0-5/HPF) Ur Epithelial Cells MANY (NONE-FEW) Urine Bacteria 2+ H (NEGATIVE) Urine HCG, Qual NEGATIVE (NEGATIVE) Ethyl Alcohol mg/dL Meds: Medications Generic Name Dose Route Start Last Admin Trade Name Freq PRN Reason Stop Dose Admin Piperacillin Sod/Tazobactam 50 mls @ 100 mls/hr 11/12/17 20:42 11/12/17 20:52 Sod 3.375 gm/ Sodium Chloride IV 11/12/17 21:11 100 mls/hr ONETIME ONE Administration Sodium Chloride 1,000 mls @ 999 mls/hr 11/12/17 21:00 11/12/17 20:53 Normal Saline IV 999 mls/hr ASDIRECTED CARLITOS Administration Discontinued Medications Generic Name Dose Route Start Last Admin Trade Name Freq PRN Reason Stop Dose Admin Sodium Chloride 1,000 mls @ 999 mls/hr 11/12/17 19:15 11/12/17 19:37 Normal Saline IV 11/12/17 20:15 999 mls/hr STAT ONE Administration Iopamidol 100 ml 11/12/17 20:14 11/12/17 20:15 Isovue Multipack-370 (76%) IVPUSH 11/12/17 20:15 100 ml ONETIME STA Administration Ketorolac Tromethamine 30 mg 11/12/17 19:15 11/12/17 19:37 Toradol IVPUSH 11/12/17 19:16 30 mg ONETIME ONE Administration Morphine Sulfate 2 mg 11/12/17 20:04 11/12/17 20:10 Morphine IVPUSH 11/12/17 20:05 2 mg ONETIME ONE Administration Ondansetron HCl 8 mg 11/12/17 19:15 11/12/17 19:40 Zofran IVPUSH 11/12/17 19:16 8 mg ONETIME ONE Administration Departure - Departure Time of Disposition: 20:59 Disposition: Admitted As Inpatient 67 Condition: Poor Clinical Impression: Pancreatitis - Discharge Information Referrals: PCP,None [Primary Care Provider] - Forms: ED Department Discharge - My Orders Last 24 Hours: My Active Orders 11/12/17 19:26 HCG QUALITATIVE,URINE [URCHEM] Stat UA W/MICROSCOPIC [URIN] Stat 11/12/17 19:32 Abdomen Pelvis w Cont [CT] Stat 11/12/17 19:40 CULTURE URINE [RM] Stat 11/12/17 20:42 CULTURE BLOOD [BC] Stat CULTURE BLOOD [BC] Stat Piperacillin/Tazobactam [Piperacil-Tazobact] 3.375 gm Sodium Chloride 0.9% [ Normal Saline] 50 ml IV ONETIME Blood Culture x2 Reflex Set [OM.PC] Stat 11/12/17 21:00 Sodium Chloride 0.9% [Normal Saline] 1,000 ml IV ASDIRECTED - Assessment/Plan Last 24 Hours: My Active Orders 11/12/17 19:26 HCG QUALITATIVE,URINE [URCHEM] Stat UA W/MICROSCOPIC [URIN] Stat 11/12/17 19:32 Abdomen Pelvis w Cont [CT] Stat 11/12/17 19:40 CULTURE URINE [RM] Stat 11/12/17 20:42 CULTURE BLOOD [BC] Stat CULTURE BLOOD [BC] Stat Piperacillin/Tazobactam [Piperacil-Tazobact] 3.375 gm Sodium Chloride 0.9% [ Normal Saline] 50 ml IV ONETIME Blood Culture x2 Reflex Set [OM.PC] Stat 11/12/17 21:00 Sodium Chloride 0.9% [Normal Saline] 1,000 ml IV ASDIRECTED
[2017-11-12 19:52] LABS: CHLORIDE,CL 101 mmol/L (98-107); SODIUM,NA 135 mmol/L (136-145)
[2017-11-12] MEDS ORDERED: Morphine 4 MG/ML Syringe IVPUSH ONE (20:04)
[2017-11-12] MEDS ORDERED: Iopamidol 755 MG/ML 500 ML Multipack Bottle IVPUSH STA (20:14)
[2017-11-12] MEDS ORDERED: Piperacillin/Tazobactam 3.375 GM in Sodium Chloride 0.9% 50 ML IV ONE (20:42)
[2017-11-12] MEDS ORDERED: Sodium Chloride 0.9% 1,000 ML IV SCH ×2 (21:00→21:15)
[2017-11-12] MEDS ORDERED: Albuterol/Ipratropium 3.0-0.5 MG/3 ML Neb Soln NEB PRN (21:54)
[2017-11-12] MEDS ORDERED: Morphine 10 MG/ML Syringe IVPUSH PRN (21:54)
[2017-11-12] MEDS ORDERED: Sodium Chloride 0.9% 2.5 ML Syringe FLUSH PRN (21:54)
[2017-11-12] MEDS ORDERED: Sodium Chloride 0.9% 10 ML Syringe FLUSH PRN (21:54)
[2017-11-13] MEDS: HYDROmorphone 2 MG/ML SDV IVPUSH PRN ×6 (03:12→21:45)
[2017-11-13] MEDS: Lactated Ringers 1,000 ML IV SCH ×3 (04:04→19:35)
[2017-11-13 07:13] LABS: CHLORIDE,CL 107 mmol/L (98-107); SODIUM,NA 136 mmol/L (136-145)
--- NOTE | 2017-11-13 15:49 | PCM.HP ---
H&P History of Present Illness - General Date of Service: 11/13/17 Admit Problem/Dx: Admission Diagnosis/Problem Admission Diagnosis/Problem Pancreatitis Source of Information: Patient - History of Present Illness Initial Comments - Free Text/Narative: Patient is 32y old female who presented to ER due to sudden onset of back pain and upper abdominal pain after she drank a small glass of vodka. She had endoscopic ultrasound at [place] in July, with DR. Armas and was told that "her cyst is gone and she has scarring in the pancreas". Had repeated episodes of pancreatitis and complain of chronic pain in the back .She says she drinks regularly vodka 3 glasses a day since age 21, graduated college , currently is unemployed and lives with her boyfriend who works in [employer]. Her abdominal pain was associated with nausea , no vomiting. Her last episode of pancreatitis was 1 month ago . Onset of Symptoms: Reports: Sudden Quality: Reports: Pressure Upper Abd Pain Score (Numeric/FACES): 5 - Related Data Allergies/Adverse Reactions: Allergies Allergy/AdvReac Type Severity Reaction Status Date / Time No Known Allergies Allergy Verified 11/12/17 19:22 Home Medications: Home Meds Norgestimate-Ethinyl Estradiol [Ortho Tri-Cyclen 28 Tablet] 1 each PO DAILY [History] Past Medical History - Past Health History Medical/Surgical History: Denies Medical/Surgical History Cardiovascular History: Reports: None Respiratory History: Reports: None Gastrointestinal History: Reports: Pancreatitis Genitourinary History: Reports: None Musculoskeletal History: Reports: None Psychiatric History: Reports: Addiction Other Psychiatric History: ETOH Endocrine/Metabolic History: Reports: None - Infectious Disease History Infectious Disease History: Reports: Chicken Pox - Past Surgical History Head Surgeries/Procedures: Reports: None Social & Family History - Family History Family Medical History: Noncontributory Cardiac: Reports: [place] - Tobacco Use Smoking Status *Q: Never Smoker Second Hand Smoke Exposure: No - Caffeine Use Caffeine Use: Reports: Soda - Alcohol Use Number of Drinks Per Day: 3 Date of Last Drink: 11/11/17 - Recreational Drug Use Recreational Drug Use: No H&P Review of Systems - Review of Systems: Review Of Systems: See Below General: Reports: No Symptoms HEENT: Reports: No Symptoms Pulmonary: Reports: No Symptoms Cardiovascular: Reports: No Symptoms Gastrointestinal: Reports: Abdominal Pain, Nausea Genitourinary: Reports: No Symptoms Musculoskeletal: Reports: No Symptoms Skin: Reports: No Symptoms Psychiatric: Reports: No Symptoms Neurological: Reports: No Symptoms Hematologic/Lymphatic: Reports: No Symptoms Immunologic: Reports: No Symptoms Exam - Exam Exam: See Below - Vital Signs Vital Signs: Last Vital Signs Temp 97.2 F 11/13/17 12:00 Pulse 91 11/13/17 12:00 Resp 22 H 11/13/17 12:00 BP 117/84 11/13/17 12:00 Pulse Ox 98 11/13/17 12:00 Weight: 166 lb 7.184 oz - Exam General: Alert, Oriented, Cooperative HEENT: Conjunctiva Clear, EACs Clear Neck: Supple, Trachea Midline Lungs: Clear to Auscultation, Normal Respiratory Effort Cardiovascular: Regular Rate, Regular Rhythm, Normal S1, Normal S2 GI/Abdominal Exam: Normal Bowel Sounds, Soft, No Organomegaly, No Distention, Tender Back Exam: Normal Inspection Extremities: Normal Inspection Skin: Warm, Dry, Intact Neurological: Cranial Nerves Intact Neuro Extensive - Mental Status: Alert, Oriented x3, Normal Mood/Affect, Normal Cognition Neuro Extensive - Motor, Sensory, Reflexes: CN II-XII Intact, Normal Gait, Normal Reflexes Psychiatric: Alert, Normal Affect, Normal Mood - Patient Data Lab Results Last 24 hrs: Laboratory Results - last 24 hr 11/12/17 11/12/17 11/12/17 Range/Units 19:22 19:22 19:22 WBC 13.00 H (4.0-11.0) K/uL RBC 4.27 L (4.30-5.90) M/uL Hgb 13.8 (12.0-16.0) g/dL Hct 40.1 (36.0-46.0) % MCV 93.9 (80.0-98.0) fL MCH 32.3 H (27.0-32.0) pg MCHC 34.4 (31.0-37.0) g/dL RDW Std Deviation 45.5 (28.0-62.0) fl RDW Coeff of [place] 13 (11.0-15.0) % Plt Count 334 (150-400) K/uL MPV 8.50 (7.40-12.00) fL Neut % (Auto) 62.2 (48.0-80.0) % Lymph % (Auto) 30.1 (16.0-40.0) % [place] % (Auto) 5.9 (0.0-15.0) % Eos % (Auto) 1.6 (0.0-7.0) % Baso % (Auto) 0.2 (0.0-1.5) % Neut # (Auto) 8.1 H (1.4-5.7) K/uL Lymph # (Auto) 3.9 H (0.6-2.4) K/uL [place] # (Auto) 0.8 (0.0-0.8) K/uL Eos # (Auto) 0.2 (0.0-0.7) K/uL Baso # (Auto) 0.0 (0.0-0.1) K/uL Nucleated RBC % 0.0 /100WBC Nucleated RBCs # 0 K/uL Sodium 135 L (136-145) mmol/L Potassium 4.0 (3.5-5.1) mmol/L Chloride 101 (98-107) mmol/L Carbon Dioxide 24.2 (21.0-32.0) mmol/L BUN 17 (7.0-18.0) mg/dL Creatinine 0.8 (0.6-1.0) mg/dL Est Cr Clr Drug Dosing 87.99 mL/min Estimated GFR (MDRD) > 60.0 ml/min Glucose 100 (74-106) mg/dL Calcium 8.3 L (8.5-10.1) mg/dL Total Bilirubin 0.6 (0.2-1.0) mg/dL AST 24 (15-37) IU/L ALT 19 (14-63) IU/L Alkaline Phosphatase 80 (46-116) U/L Total Protein 7.2 (6.4-8.2) g/dL Albumin 3.2 L (3.4-5.0) g/dL Globulin 4.0 H (2.0-3.5) g/dL Albumin/Globulin Ratio 0.8 L (1.3-2.8) Lipase 55696 H (73-393) U/L Urine Color Urine Appearance Urine pH (5.0-8.0) Ur Specific [place] (1.001-1.035) Urine Protein (NEGATIVE) mg/dL Urine Glucose (UA) (NEGATIVE) mg/dL Urine Ketones (NEGATIVE) mg/dL Urine Occult Blood (NEGATIVE) Urine Nitrite (NEGATIVE) Urine Bilirubin (NEGATIVE) Urine Urobilinogen (<2.0) EU/dL Ur Leukocyte Esterase (NEGATIVE) Urine RBC (0-2/HPF) Urine WBC (0-5/HPF) Ur Epithelial Cells (NONE-FEW) Urine Bacteria (NEGATIVE) Urine HCG, Qual (NEGATIVE) Ethyl Alcohol < 3.0 mg/dL 11/12/17 11/12/17 11/13/17 Range/Units 19:26 19:26 06:08 WBC 9.39 (4.0-11.0) K/uL RBC 3.54 L (4.30-5.90) M/uL Hgb 11.3 L (12.0-16.0) g/dL Hct 34.4 L (36.0-46.0) % MCV 97.2 (80.0-98.0) fL MCH 31.9 (27.0-32.0) pg MCHC 32.8 (31.0-37.0) g/dL RDW Std Deviation 47.0 (28.0-62.0) fl RDW Coeff of [place] 13 (11.0-15.0) % Plt Count 229 (150-400) K/uL MPV 8.40 (7.40-12.00) fL Neut % (Auto) 77.5 (48.0-80.0) % Lymph % (Auto) 15.8 L (16.0-40.0) % [place] % (Auto) 4.6 (0.0-15.0) % Eos % (Auto) 1.9 (0.0-7.0) % Baso % (Auto) 0.2 (0.0-1.5) % Neut # (Auto) 7.3 H (1.4-5.7) K/uL Lymph # (Auto) 1.5 (0.6-2.4) K/uL [place] # (Auto) 0.4 (0.0-0.8) K/uL Eos # (Auto) 0.2 (0.0-0.7) K/uL Baso # (Auto) 0.0 (0.0-0.1) K/uL Nucleated RBC % 0.0 /100WBC Nucleated RBCs # 0 K/uL Sodium (136-145) mmol/L Potassium (3.5-5.1) mmol/L Chloride (98-107) mmol/L Carbon Dioxide (21.0-32.0) mmol/L BUN (7.0-18.0) mg/dL Creatinine (0.6-1.0) mg/dL Est Cr Clr Drug Dosing mL/min Estimated GFR (MDRD) ml/min Glucose (74-106) mg/dL Calcium (8.5-10.1) mg/dL Total Bilirubin (0.2-1.0) mg/dL AST (15-37) IU/L ALT (14-63) IU/L Alkaline Phosphatase (46-116) U/L Total Protein (6.4-8.2) g/dL Albumin (3.4-5.0) g/dL Globulin (2.0-3.5) g/dL Albumin/Globulin Ratio (1.3-2.8) Lipase (73-393) U/L Urine Color YELLOW Urine Appearance CLOUDY Urine pH 7.0 (5.0-8.0) Ur Specific [place] 1.025 (1.001-1.035) Urine Protein TRACE (NEGATIVE) mg/dL Urine Glucose (UA) NEGATIVE (NEGATIVE) mg/dL Urine Ketones NEGATIVE (NEGATIVE) mg/dL Urine Occult Blood LARGE H (NEGATIVE) Urine Nitrite NEGATIVE (NEGATIVE) Urine Bilirubin NEGATIVE (NEGATIVE) Urine Urobilinogen 1.0 (<2.0) EU/dL Ur Leukocyte Esterase SMALL (NEGATIVE) Urine RBC 6-10 (0-2/HPF) Urine WBC 18-20 (0-5/HPF) Ur Epithelial Cells MANY (NONE-FEW) Urine Bacteria 2+ H (NEGATIVE) Urine HCG, Qual NEGATIVE (NEGATIVE) Ethyl Alcohol mg/dL 11/13/17 11/13/17 Range/Units 06:08 06:08 WBC (4.0-11.0) K/uL RBC (4.30-5.90) M/uL Hgb (12.0-16.0) g/dL Hct (36.0-46.0) % MCV (80.0-98.0) fL MCH (27.0-32.0) pg MCHC (31.0-37.0) g/dL RDW Std Deviation (28.0-62.0) fl RDW Coeff of [place] (11.0-15.0) % Plt Count (150-400) K/uL MPV (7.40-12.00) fL Neut % (Auto) (48.0-80.0) % Lymph % (Auto) (16.0-40.0) % [place] % (Auto) (0.0-15.0) % Eos % (Auto) (0.0-7.0) % Baso % (Auto) (0.0-1.5) % Neut # (Auto) (1.4-5.7) K/uL Lymph # (Auto) (0.6-2.4) K/uL [place] # (Auto) (0.0-0.8) K/uL Eos # (Auto) (0.0-0.7) K/uL Baso # (Auto) (0.0-0.1) K/uL Nucleated RBC % /100WBC Nucleated RBCs # K/uL Sodium 136 (136-145) mmol/L Potassium 3.9 (3.5-5.1) mmol/L Chloride 107 (98-107) mmol/L Carbon Dioxide 22.7 (21.0-32.0) mmol/L BUN 11 (7.0-18.0) mg/dL Creatinine 0.7 (0.6-1.0) mg/dL Est Cr Clr Drug Dosing 100.55 mL/min Estimated GFR (MDRD) > 60.0 ml/min Glucose 84 (74-106) mg/dL Calcium 7.4 L (8.5-10.1) mg/dL Total Bilirubin 0.8 (0.2-1.0) mg/dL AST 19 (15-37) IU/L ALT 13 L (14-63) IU/L Alkaline Phosphatase 70 (46-116) U/L Total Protein 5.4 L (6.4-8.2) g/dL Albumin 2.5 L (3.4-5.0) g/dL Globulin 2.9 (2.0-3.5) g/dL Albumin/Globulin Ratio 0.9 L (1.3-2.8) Lipase 5685 H (73-393) U/L Urine Color Urine Appearance Urine pH (5.0-8.0) Ur Specific [place] (1.001-1.035) Urine Protein (NEGATIVE) mg/dL Urine Glucose (UA) (NEGATIVE) mg/dL Urine Ketones (NEGATIVE) mg/dL Urine Occult Blood (NEGATIVE) Urine Nitrite (NEGATIVE) Urine Bilirubin (NEGATIVE) Urine Urobilinogen (<2.0) EU/dL Ur Leukocyte Esterase (NEGATIVE) Urine RBC (0-2/HPF) Urine WBC (0-5/HPF) Ur Epithelial Cells (NONE-FEW) Urine Bacteria (NEGATIVE) Urine HCG, Qual (NEGATIVE) Ethyl Alcohol mg/dL Result Diagrams: 11/13/17 06:08 11/13/17 06:08 - Problem List (1) Acute on chronic pancreatitis SNOMED Code(s): 497013157 ICD Code: K85.90 - ACUTE PANCREATITIS WITHOUT NECROSIS OR INFECTION, UNSP; K86.1 - OTHER CHRONIC PANCREATITIS Status: Acute Current Visit: Yes (2) Alcohol abuse SNOMED Code(s): 55250198 ICD Code: F10.10 - ALCOHOL ABUSE, UNCOMPLICATED Status: Acute Current Visit: Yes Problem List Initiated/Reviewed/Updated: Yes Orders Last 24hrs: Active Orders 24 hr Category Date Time Status Admission Status [Patient Status] [ADT] Stat ADT 11/12/17 20:59 Active Oxygen Therapy [RC] PRN Care 11/12/17 21:54 Active Pulse Oximetry [RC] PRN Care 11/12/17 21:55 Active RT Aerosol Therapy [RC] ASDIRECTED Care 11/12/17 21:57 Active Up ad [place] [RC] ASDIRECTED Care 11/12/17 21:54 Active VTE/DVT Education [RC] PER UNIT ROUTINE Care 11/12/17 21:54 Active Vital Signs [RC] Q4H Care 11/12/17 21:54 Active Clear Liquid Diet [DIET] Diet 11/13/17 Dinner Active Abdomen Pelvis w Cont [CT] Stat Exams 11/12/17 19:32 Taken CBC WITH AUTO DIFF [HEME] AM Lab 11/14/17 05:11 Ordered CBC WITH AUTO DIFF [HEME] AM Lab 11/15/17 05:11 Ordered CBC WITH AUTO DIFF [HEME] AM Lab 11/16/17 05:11 Ordered CBC WITH AUTO DIFF [HEME] AM Lab 11/17/17 05:11 Ordered COMPREHENSIVE METABOLIC PN,CMP [CHEM] AM Lab 11/14/17 05:11 Ordered COMPREHENSIVE METABOLIC PN,CMP [CHEM] AM Lab 11/15/17 05:11 Ordered COMPREHENSIVE METABOLIC PN,CMP [CHEM] AM Lab 11/16/17 05:11 Ordered COMPREHENSIVE METABOLIC PN,CMP [CHEM] AM Lab 11/17/17 05:11 Ordered CULTURE BLOOD [BC] Stat Lab 11/12/17 20:53 Received CULTURE BLOOD [BC] Stat Lab 11/12/17 21:03 Received CULTURE URINE [RM] Stat Lab 11/12/17 19:40 Ordered HCG QUALITATIVE,URINE [URCHEM] Stat Lab 11/12/17 19:26 Ordered UA W/MICROSCOPIC [URIN] Stat Lab 11/12/17 19:26 Ordered Albuterol/Ipratropium [DuoNeb 3.0-0.5 MG/3 ML] Med 11/12/17 21:54 Active 3 ml NEB Q4HRRT PRN HYDROmorphone [Dilaudid] Med 11/12/17 22:34 Active 2 mg IVPUSH Q3H PRN Lactated Ringers [Ringers, Lactated] 1,000 ml Med 11/12/17 22:00 Active IV ASDIRECTED Morphine Med 11/12/17 21:54 Active 2 mg IVPUSH Q2H PRN Sodium Chloride 0.9% [Normal Saline] 1,000 ml Med 11/12/17 21:00 Active IV ASDIRECTED Sodium Chloride 0.9% [Normal Saline] 1,000 ml Med 11/12/17 21:15 Active IV STAT Sodium Chloride 0.9% [Saline Flush] Med 11/12/17 21:54 Active 10 ml FLUSH ASDIRECTED PRN Sodium Chloride 0.9% [Saline Flush] Med 11/12/17 21:54 Active 2.5 ml FLUSH ASDIRECTED PRN Blood Culture x2 Reflex Set [OM.PC] Stat Oth 11/12/17 20:42 Ordered Peripheral IV Insertion Adult [OM.PC] Routine Oth 11/12/17 21:54 Ordered Sequential Compression Device [OM.PC] Per Unit Routine Oth 11/12/17 21:55 Ordered Resuscitation Status Routine Resus Stat 11/12/17 21:54 Ordered Medication Orders Albuterol/Ipratropium (Duoneb 3.0-0.5 Mg/3 Ml) 3 ml NEB Q4HRRT PRN PRN Reason: Shortness Of Breath/wheezing Hydromorphone HCl (Dilaudid) 2 mg IVPUSH Q3H PRN PRN Reason: severe pain Last Admin: 11/13/17 14:28 Dose: 2 mg Admin: 11/13/17 10:14 Dose: 2 mg Admin: 11/13/17 06:45 Dose: 2 mg Admin: 11/13/17 03:12 Dose: 2 mg Sodium Chloride (Normal Saline) 1,000 mls @ 999 mls/hr IV ASDIRECTED [facility] Last Admin: 11/12/17 20:53 Dose: 999 mls/hr Sodium Chloride (Normal Saline) 1,000 mls @ 150 mls/hr IV STAT CARLITOS Last Admin: 11/12/17 22:32 Dose: 150 mls/hr Lactated Ringer's (Ringers, Lactated) 1,000 mls @ 200 mls/hr IV ASDIRECTED [facility] Last Admin: 11/13/17 09:17 Dose: 200 mls/hr Infusion: 11/13/17 09:04 Dose: 200 mls/hr Admin: 11/13/17 04:04 Dose: 200 mls/hr Morphine Sulfate (Morphine) 2 mg IVPUSH Q2H PRN PRN Reason: Pain (severe 7-10) Stop: 11/13/17 21:56 Last Admin: 11/12/17 22:34 Dose: 2 mg Sodium Chloride (Saline Flush) 10 ml FLUSH ASDIRECTED PRN PRN Reason: Keep Vein Open Sodium Chloride (Saline Flush) 2.5 ml FLUSH ASDIRECTED PRN PRN Reason: Keep Vein Open Assessment/Plan Comment:: assessment and plan 1)pancreatitis acute on chronic - will admit patient to medical floor will give patient iv fluids ringerlactate @250 cc /h , pain management with dilaudid 2 mg iv q 3 h and will give patient antinausea medication, will put patient NPO. will monitor patient clinically and the lipase. will try to get patient medical records from [place] 2)Alcohol abuse , patient is not able to stop drinking- she will need referral to a alcohol detox clinic 3)dvt prof - heparin sq Gi prof- protonix 40 mg iv daily
[2017-11-14] MEDS: Lactated Ringers 1,000 ML IV SCH ×3 (01:01→10:54)
[2017-11-14] MEDS: HYDROmorphone 2 MG/ML SDV IVPUSH PRN ×4 (01:02→10:48)
[2017-11-14 07:03] LABS: CHLORIDE,CL 106 mmol/L (98-107); SODIUM,NA 135 mmol/L (136-145)
--- NOTE | 2017-11-14 13:50 | PCM.DCSUM1 ---
Discharge Summary - Discharge Data Discharge Disposition: Home, Self-Care 01 Condition: Good - Discharge Diagnosis/Problem(s) (1) Acute on chronic pancreatitis SNOMED Code(s): 886523686 ICD Code: K85.90 - ACUTE PANCREATITIS WITHOUT NECROSIS OR INFECTION, UNSP; K86.1 - OTHER CHRONIC PANCREATITIS Status: Acute Current Visit: Yes (2) Alcohol abuse SNOMED Code(s): 07893518 ICD Code: F10.10 - ALCOHOL ABUSE, UNCOMPLICATED Status: Acute Current Visit: Yes - Patient Instructions Diet: Usual Diet as Tolerated Activity: As Tolerated Driving: May Drive Today Showering/Bathing: May Shower Notify Provider of: Fever - Discharge Plan Prescriptions/Med Rec: Acetaminophen/oxyCODONE [Percocet 325-5 MG] 1 each PO Q6H PRN #20 tab PRN Reason: moderate to severe pain Home Medications: Home Meds Acetaminophen/oxyCODONE [Percocet 325-5 MG] 1 each PO Q6H PRN #20 tab 11/14/17 [ Rx] Forms: ED Department Discharge Referrals: PCP,None [Primary Care Provider] - Devan Barry MD [Ordering Only Provider] - - Patient Data Vitals - Most Recent: Last Vital Signs Temp 97.1 F 11/14/17 12:00 Pulse 93 11/14/17 12:00 Resp 22 H 11/14/17 12:00 BP 135/91 H 11/14/17 12:00 Pulse Ox 98 11/14/17 12:00 Weight - Most Recent: 166 lb 7.184 oz I&O - Last 24 hours: Intake & Output 11/13/17 11/14/17 11/14/17 22:59 06:59 14:59 Intake Total 3683 1080 Output Total 450 1100 Balance 3233 -20 Lab Results - Last 24 hrs: Laboratory Results - last 24 hr 11/14/17 11/14/17 11/14/17 Range/Units 06:29 06:29 06:29 WBC 6.69 (4.0-11.0) K/uL RBC 3.24 L (4.30-5.90) M/uL Hgb 10.4 L (12.0-16.0) g/dL Hct 31.8 L (36.0-46.0) % MCV 98.1 H (80.0-98.0) fL MCH 32.1 H (27.0-32.0) pg MCHC 32.7 (31.0-37.0) g/dL RDW Std Deviation 46.9 (28.0-62.0) fl RDW Coeff of [place] 13 (11.0-15.0) % Plt Count 192 (150-400) K/uL MPV 8.30 (7.40-12.00) fL Neut % (Auto) 54.2 (48.0-80.0) % Lymph % (Auto) 34.2 (16.0-40.0) % [place] % (Auto) 7.6 (0.0-15.0) % Eos % (Auto) 3.7 (0.0-7.0) % Baso % (Auto) 0.3 (0.0-1.5) % Neut # (Auto) 3.6 (1.4-5.7) K/uL Lymph # (Auto) 2.3 (0.6-2.4) K/uL [place] # (Auto) 0.5 (0.0-0.8) K/uL Eos # (Auto) 0.3 (0.0-0.7) K/uL Baso # (Auto) 0.0 (0.0-0.1) K/uL Nucleated RBC % 0.0 /100WBC Nucleated RBCs # 0 K/uL Sodium 135 L (136-145) mmol/L Potassium 3.8 (3.5-5.1) mmol/L Chloride 106 (98-107) mmol/L Carbon Dioxide 23.1 (21.0-32.0) mmol/L BUN 3 L (7.0-18.0) mg/dL Creatinine 0.5 L (0.6-1.0) mg/dL Est Cr Clr Drug Dosing 140.78 mL/min Estimated GFR (MDRD) > 60.0 ml/min Glucose 85 (74-106) mg/dL Calcium 7.5 L (8.5-10.1) mg/dL Total Bilirubin 0.5 (0.2-1.0) mg/dL AST 26 (15-37) IU/L ALT 13 L (14-63) IU/L Alkaline Phosphatase 85 (46-116) U/L Total Protein 5.6 L (6.4-8.2) g/dL Albumin 2.5 L (3.4-5.0) g/dL Globulin 3.1 (2.0-3.5) g/dL Albumin/Globulin Ratio 0.8 L (1.3-2.8) Lipase 269 (73-393) U/L CHRISTINE Results - Last 24 hrs: Microbiology 11/12/17 19:40 Urine Culture - Final Urine, Clean Catch MIXED DAVID 1,000-10,000 CFU/ML 11/12/17 21:03 Aerobic Blood Culture - Preliminary Blood - Venous - Lab Draw NO GROWTH AFTER 1 DAY Anaerobic Blood Culture - Preliminary NO GROWTH AFTER 1 DAY 11/12/17 20:53 Aerobic Blood Culture - Preliminary Blood - Venous NO GROWTH AFTER 1 DAY Anaerobic Blood Culture - Preliminary NO GROWTH AFTER 1 DAY Med Orders - Current: Current Medications Albuterol/Ipratropium (Duoneb 3.0-0.5 Mg/3 Ml) 3 ml NEB Q4HRRT PRN PRN Reason: Shortness Of Breath/wheezing Hydromorphone HCl (Dilaudid) 2 mg IVPUSH Q3H PRN PRN Reason: severe pain Last Admin: 11/14/17 10:48 Dose: 2 mg Sodium Chloride (Normal Saline) 1,000 mls @ 999 mls/hr IV ASDIRECTED [facility] Last Admin: 11/12/17 20:53 Dose: 999 mls/hr Sodium Chloride (Normal Saline) 1,000 mls @ 150 mls/hr IV STAT [facility] Last Admin: 11/12/17 22:32 Dose: 150 mls/hr Lactated Ringer's (Ringers, Lactated) 1,000 mls @ 200 mls/hr IV ASDIRECTED [facility] Last Admin: 11/14/17 10:54 Dose: 200 mls/hr Sodium Chloride (Saline Flush) 10 ml FLUSH ASDIRECTED PRN PRN Reason: Keep Vein Open Sodium Chloride (Saline Flush) 2.5 ml FLUSH ASDIRECTED PRN PRN Reason: Keep Vein Open Discontinued Medications Sodium Chloride (Normal Saline) 1,000 mls @ 999 mls/hr IV STAT ONE Stop: 11/12/17 20:15 Last Admin: 11/12/17 19:37 Dose: 999 mls/hr Piperacillin Sod/Tazobactam (Sod 3.375 gm/ Sodium Chloride) 50 mls @ 100 mls/ hr IV ONETIME ONE Stop: 11/12/17 21:11 Last Admin: 11/12/17 20:52 Dose: 100 mls/hr Iopamidol (Isovue Multipack-370 (76%)) 100 ml IVPUSH ONETIME STA Stop: 11/12/17 20:15 Last Admin: 11/12/17 20:15 Dose: 100 ml Ketorolac Tromethamine (Toradol) 30 mg IVPUSH ONETIME ONE Stop: 11/12/17 19:16 Last Admin: 11/12/17 19:37 Dose: 30 mg Morphine Sulfate (Morphine) 2 mg IVPUSH ONETIME ONE Stop: 11/12/17 20:05 Last Admin: 11/12/17 20:10 Dose: 2 mg Morphine Sulfate (Morphine) 2 mg IVPUSH Q2H PRN PRN Reason: Pain (severe 7-10) Stop: 11/13/17 21:56 Last Admin: 11/12/17 22:34 Dose: 2 mg Ondansetron HCl (Zofran) 8 mg IVPUSH ONETIME ONE Stop: 11/12/17 19:16 Last Admin: 11/12/17 19:40 Dose: 8 mg
--- NOTE | 2017-11-15 09:28 | CT ---
EXAM DATE: 11/12/17 PATIENT'S AGE: 32 Patient: ALDEN BORGES Facility: [place], [place] Site . Site : 1985 Study: CT Abdomen/Pelvis WITH [id number] 8:13:46 PM Ordering Physician: Eliz Salinas Final Report: INDICATION: Upper abdominal pain, history of pancreatitis. TECHNIQUE: Volumetric CT scan abdomen, pelvis with 100 mL Isovue-370 injected intravenously. COMPARISON: July 30, 2017. FINDINGS: Visualized portions of lung bases are clear. There is no pleural/pericardial fluid accumulation. Inflammatory stranding emanates from the pancreas, progressive since previous examination and consistent with pancreatitis. Stable appearing low-attenuation area in the pancreatic head on image 60 of series 201 has not changed/ progressed. A small cyst is suggested. Lesser inflammatory stranding about the pancreatic body and tail. The mesenteric vessels and splenic and portal veins remain patent. Gallbladder mildly distended. No radiodense calculi. There is no biliary enlargement. The other solid abdominal organs are within normal limits. No free air. No evidence of bowel obstruction. Moderate fluid and gaseous distention of the stomach and duodenum. Uterus is slightly enlarged but otherwise pelvis and reproductive unremarkable. Urinary bladder is within normal limits. There are no acute/aggressive osseous lesions identified. IMPRESSION: 1. Acute pancreatitis, no evidence of abscess. Mild gallbladder distention without calculi/biliary enlargement. 2. Mild distention of stomach and duodenum, probably related to the pancreatitis. 3. Stable appearance of a low-density, possibly cystic area within the pancreatic head which is just over 1 cm in maximum dimension. Please note that all CT scans at this facility use dose modulation, iterative reconstruction, and/or weight-based dosing when appropriate to reduce radiation dose to as low as reasonably achievable. Dictated by Erich Magana MD @ Nov 12 2017 8:30PM (Electronic Signature) Report Signed by Proxy. [email or web address]
== END 2017-11-14 14:55 | disposition home or self-care (01) | DRG 439 ==
LOC: MW.ED 18:48 → MW.MS 20:59
PROVIDERS: ADMIT Internal Medicine; ATTEND Internal Medicine
DX: K85.90 Acute pancreatitis without necrosis or infection, unspecified (principal); K86.2 Cyst of pancreas; K86.1 Other chronic pancreatitis; F10.10 Alcohol abuse, uncomplicated; M54.9 Dorsalgia, unspecified; G89.29 Other chronic pain; Z79.899 Other long term (current) drug therapy
CPT/HCPCS: 36415; 74177; 74177-26; 80053; 81001; 81025; 83690; 85025; 87040; 87086; 96361; 96365; 96375; 99283; 99285-25; G0480; J1170; J1885; J2270; J2405; J2543; J7040; J7050; J7120; Q9967

== ENCOUNTER 2017-11-17 18:06 | Inpatient (IN) | payer MEDICAID ==
[2017-11-17] MEDS ORDERED: Sodium Chloride 0.9% 1,000 ML IV ONE (18:17)
--- NOTE | 2017-11-17 18:21 | EDM.PDOC ---
ED HPI GENERAL MEDICAL PROBLEM - General Chief Complaint: Abdominal Pain Stated Complaint: ABDOMINAL PAIN/NAUSEA Time Seen by Provider: 11/17/17 18:21 Source of Information: Reports: Patient History Limitations: Reports: No Limitations - History of Present Illness INITIAL COMMENTS - FREE TEXT/NARRATIVE: HISTORY AND PHYSICAL: History of present illness: Patient is a 32-year-old female who presents to the emergency room today with complaints of abdominal pain, nausea and vomiting. Patient has a chronic history of pancreatitis along with alcohol abuse. She was recently admitted to our hospital for nothing by mouth status however received IV medications and observed for her acute on chronic pancreatitis. She states she was given [place] and Zofran but is unable to keep these medications down. States she continues to drink alcohol daily. When asked about alcohol treatment she states she knows she is in need of alcohol treatment but has committed in doing so. She denies any fever, chills, chest pain, shortness of breath or diaphoresis. Review of systems: As per history of present illness and below otherwise all systems reviewed and negative. Past medical history: As per history of present illness and as reviewed below otherwise noncontributory. Surgical history: As per history of present illness and as reviewed below otherwise noncontributory. Social history: No reported history of drug or alcohol abuse. Family history: As per history of present illness and as reviewed below otherwise noncontributory. Physical exam: General: Well-developed and well-nourished 32-year-old female. Alert and oriented. Nontoxic appearing and in no acute distress. HEENT: Atraumatic, normocephalic, pupils equal and reactive bilaterally, negative for conjunctival pallor or scleral icterus, mucous membranes moist, throat clear, neck supple, nontender, trachea midline. No drooling or trismus noted. No meningeal signs Lungs: Clear to auscultation, breath sounds equal bilaterally, chest nontender. Heart: S1S2, regular rate and rhythm without overt murmur Abdomen: Soft, nondistended, generalized tenderness in all 4 quadrants. Negative for masses or hepatosplenomegaly. Negative for costovertebral tenderness. Pelvis: Stable nontender. Genitourinary: Deferred. Rectal: Deferred. Skin: Intact, warm, dry. No lesions or rashes noted. Extremities: Atraumatic, negative for cords or calf pain. Neurovascular unremarkable. Neuro: Awake, alert, oriented. Cranial nerves II through XII unremarkable. Cerebellum unremarkable. Motor and sensory unremarkable throughout. Exam nonfocal. Notes: 11/13/2017: Patient was admitted to the hospital for pancreatitis. At this time the CT of the abdomen showed a 1 cm pancreatic cyst at the head of the pancreas. She does have a chronic history of pancreatitis along with alcohol abuse. Patient reportedly had an endoscopic ultrasound in [place] by Dr Armas; she was told that she had scarring in the pancrease - but the cyst was gone. Lipase on 11/12/2017 was [id number], 11/14/2017 was #269; #[id number] today. The hospitalist was consulted on this case. Initially she requested that this patient see a GI specialist. The patient currently declines stating she will not be transferred and would like to receive care here. This is agreeing to keeping this patient for continued care. Diagnostics: CBC, CMP, UA, amylase, lipase and urine , etoh Therapeutics: IV fluid, Zofran Impression: Pancreatitis, acute on chronic Plan: Admission to [facility] Definitive disposition and diagnosis as appropriate pending reevaluation and review of above. Duration: Chronic Location: Reports: Abdomen abdominal Pain Score (Numeric/FACES): 8 - Related Data Allergies Allergy/AdvReac Type Severity Reaction Status Date / Time No Known Allergies Allergy Verified 11/17/17 18:16 Home Meds: Home Meds Acetaminophen/oxyCODONE [Percocet 325-5 MG] 1 each PO Q6H PRN #20 tab 11/14/17 [ Rx] Past Medical History - Past Health History Medical/Surgical History: Denies Medical/Surgical History HEENT History: Reports: None Cardiovascular History: Reports: None Respiratory History: Reports: None Gastrointestinal History: Reports: Pancreatitis Genitourinary History: Reports: None 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 Musculoskeletal History: Reports: None Neurological History: Reports: None Psychiatric History: Reports: Addiction Other Psychiatric History: ETOH Endocrine/Metabolic History: Reports: None Hematologic History: Reports: None Immunologic History: Reports: None Oncologic (Cancer) History: Reports: None Dermatologic History: Reports: None - Infectious Disease History Infectious Disease History: Reports: Chicken Pox - Past Surgical History Head Surgeries/Procedures: Reports: None HEENT Surgical History: Reports: None Cardiovascular Surgical History: Reports: None Respiratory Surgical History: Reports: None GI Surgical History: Reports: None Female Surgical History: Reports: None Endocrine Surgical History: Reports: None Neurological Surgical History: Reports: None Musculoskeletal Surgical History: Reports: None Oncologic Surgical History: Reports: None Dermatological Surgical History: Reports: None Social & Family History - Family History Family Medical History: Noncontributory Cardiac: Reports: [place] - Tobacco Use Smoking Status *Q: Never Smoker Second Hand Smoke Exposure: No - Caffeine Use Caffeine Use: Reports: Soda - Recreational Drug Use Recreational Drug Use: No ED ROS GENERAL - Review of Systems Review Of Systems: ROS reveals no pertinent complaints other than HPI. ED EXAM, GI/ABD - Physical Exam Exam: See Below (See dictaiton) Course - Vital Signs Last Recorded V/S: Last Vital Signs Temp 96.9 F 11/17/17 18:17 Pulse 82 11/17/17 18:17 Resp 18 11/17/17 18:17 BP 150/132 H 11/17/17 18:17 Pulse Ox 98 11/17/17 18:17 - Orders/Labs/Meds Orders: Active Orders 24 hr Category Date Time Status DRUG SCREEN, URINE [URCHEM] Stat Lab 11/17/17 19:35 Ordered HCG QUALITATIVE,URINE [URCHEM] Stat Lab 11/17/17 19:35 Ordered UA W/MICROSCOPIC [URIN] Stat Lab 11/17/17 19:35 Ordered Labs: Laboratory Tests 11/17/17 11/17/17 11/17/17 Range/Units 18:40 18:48 18:48 WBC 9.39 (4.0-11.0) K/uL RBC 3.97 L (4.30-5.90) M/uL Hgb 12.7 (12.0-16.0) g/dL Hct 36.3 (36.0-46.0) % MCV 91.4 (80.0-98.0) fL MCH 32.0 (27.0-32.0) pg MCHC 35.0 (31.0-37.0) g/dL RDW Std Deviation 44.2 (28.0-62.0) fl RDW Coeff of [place] 13 (11.0-15.0) % Plt Count 261 (150-400) K/uL MPV 8.30 (7.40-12.00) fL Neut % (Auto) 72.7 (48.0-80.0) % Lymph % (Auto) 22.6 (16.0-40.0) % [place] % (Auto) 4.4 (0.0-15.0) % Eos % (Auto) 0.1 (0.0-7.0) % Baso % (Auto) 0.2 (0.0-1.5) % Neut # (Auto) 6.8 H (1.4-5.7) K/uL Lymph # (Auto) 2.1 (0.6-2.4) K/uL [place] # (Auto) 0.4 (0.0-0.8) K/uL Eos # (Auto) 0.0 (0.0-0.7) K/uL Baso # (Auto) 0.0 (0.0-0.1) K/uL Nucleated RBC % 0.0 /100WBC Nucleated RBCs # 0 K/uL Sodium 139 (136-145) mmol/L Potassium 3.6 (3.5-5.1) mmol/L Chloride 102 (98-107) mmol/L Carbon Dioxide 21.4 (21.0-32.0) mmol/L BUN 9 (7.0-18.0) mg/dL Creatinine 0.7 (0.6-1.0) mg/dL Est Cr Clr Drug Dosing 100.55 mL/min Estimated GFR (MDRD) > 60.0 ml/min Glucose 95 (74-106) mg/dL Calcium 8.4 L (8.5-10.1) mg/dL Total Bilirubin 0.3 (0.2-1.0) mg/dL AST 22 (15-37) IU/L ALT 17 (14-63) IU/L Alkaline Phosphatase 105 (46-116) U/L Total Protein 6.7 (6.4-8.2) g/dL Albumin 3.0 L (3.4-5.0) g/dL Globulin 3.7 H (2.0-3.5) g/dL Albumin/Globulin Ratio 0.8 L (1.3-2.8) Amylase 218 H (25-115) U/L Lipase 4808 H (73-393) U/L Urine Color Urine Appearance Urine pH (5.0-8.0) Ur Specific [place] (1.001-1.035) Urine Protein (NEGATIVE) mg/dL Urine Glucose (UA) (NEGATIVE) mg/dL Urine Ketones (NEGATIVE) mg/dL Urine Occult Blood (NEGATIVE) Urine Nitrite (NEGATIVE) Urine Bilirubin (NEGATIVE) Urine Urobilinogen (<2.0) EU/dL Ur Leukocyte Esterase (NEGATIVE) Urine RBC (0-2/HPF) Urine WBC (0-5/HPF) Ur Epithelial Cells (NONE-FEW) Urine Bacteria (NEGATIVE) Urine HCG, Qual (NEGATIVE) Urine Opiates Screen (NEGATIVE) Ur Oxycodone Screen (NEGATIVE) Urine Methadone Screen (NEGATIVE) Ur Barbiturates Screen (NEGATIVE) Ur Phencyclidine Scrn (NEGATIVE) Ur Amphetamine Screen (NEGATIVE) U Methamphetamines Scrn (NEGATIVE) U Benzodiazepines Scrn (NEGATIVE) U Cocaine Metab Screen (NEGATIVE) U Marijuana (THC) Screen (NEGATIVE) Ethyl Alcohol 37 mg/dL 11/17/17 11/17/17 11/17/17 Range/Units 19:35 19:35 19:35 WBC (4.0-11.0) K/uL RBC (4.30-5.90) M/uL Hgb (12.0-16.0) g/dL Hct (36.0-46.0) % MCV (80.0-98.0) fL MCH (27.0-32.0) pg MCHC (31.0-37.0) g/dL RDW Std Deviation (28.0-62.0) fl RDW Coeff of [place] (11.0-15.0) % Plt Count (150-400) K/uL MPV (7.40-12.00) fL Neut % (Auto) (48.0-80.0) % Lymph % (Auto) (16.0-40.0) % [place] % (Auto) (0.0-15.0) % Eos % (Auto) (0.0-7.0) % Baso % (Auto) (0.0-1.5) % Neut # (Auto) (1.4-5.7) K/uL Lymph # (Auto) (0.6-2.4) K/uL [place] # (Auto) (0.0-0.8) K/uL Eos # (Auto) (0.0-0.7) K/uL Baso # (Auto) (0.0-0.1) K/uL Nucleated RBC % /100WBC Nucleated RBCs # K/uL Sodium (136-145) mmol/L Potassium (3.5-5.1) mmol/L Chloride (98-107) mmol/L Carbon Dioxide (21.0-32.0) mmol/L BUN (7.0-18.0) mg/dL Creatinine (0.6-1.0) mg/dL Est Cr Clr Drug Dosing mL/min Estimated GFR (MDRD) ml/min Glucose (74-106) mg/dL Calcium (8.5-10.1) mg/dL Total Bilirubin (0.2-1.0) mg/dL AST (15-37) IU/L ALT (14-63) IU/L Alkaline Phosphatase (46-116) U/L Total Protein (6.4-8.2) g/dL Albumin (3.4-5.0) g/dL Globulin (2.0-3.5) g/dL Albumin/Globulin Ratio (1.3-2.8) Amylase (25-115) U/L Lipase (73-393) U/L Urine Color YELLOW Urine Appearance SLT CLOUDY Urine pH 8.0 (5.0-8.0) Ur Specific [place] 1.015 (1.001-1.035) Urine Protein TRACE (NEGATIVE) mg/dL Urine Glucose (UA) NEGATIVE (NEGATIVE) mg/dL Urine Ketones 15 H (NEGATIVE) mg/dL Urine Occult Blood MODERATE (NEGATIVE) Urine Nitrite NEGATIVE (NEGATIVE) Urine Bilirubin NEGATIVE (NEGATIVE) Urine Urobilinogen 0.2 (<2.0) EU/dL Ur Leukocyte Esterase TRACE (NEGATIVE) Urine RBC 0-2 (0-2/HPF) Urine WBC 2-4 (0-5/HPF) Ur Epithelial Cells OCCASIONAL (NONE-FEW) Urine Bacteria 2+ H (NEGATIVE) Urine HCG, Qual NEGATIVE (NEGATIVE) Urine Opiates Screen NEGATIVE (NEGATIVE) Ur Oxycodone Screen POSITIVE (NEGATIVE) Urine Methadone Screen NEGATIVE (NEGATIVE) Ur Barbiturates Screen NEGATIVE (NEGATIVE) Ur Phencyclidine Scrn NEGATIVE (NEGATIVE) Ur Amphetamine Screen NEGATIVE (NEGATIVE) U Methamphetamines Scrn NEGATIVE (NEGATIVE) U Benzodiazepines Scrn NEGATIVE (NEGATIVE) U Cocaine Metab Screen NEGATIVE (NEGATIVE) U Marijuana (THC) Screen NEGATIVE (NEGATIVE) Ethyl Alcohol mg/dL Meds: Medications Discontinued Medications Generic Name Dose Route Start Last Admin Trade Name Jackie PRN Reason Stop Dose Admin Hydromorphone HCl 0.5 mg 11/17/17 19:49 Dilaudid IV 11/17/17 19:50 ONETIME ONE Sodium Chloride 1,000 mls @ 999 mls/hr 11/17/17 18:17 11/17/17 18:38 Normal Saline IV 11/17/17 19:17 999 mls/hr STAT ONE Administration Ketorolac Tromethamine 30 mg 11/17/17 18:40 11/17/17 19:02 Toradol IVPUSH 11/17/17 18:41 30 mg ONETIME ONE Administration Ondansetron HCl 8 mg 11/17/17 18:36 11/17/17 18:40 Zofran IVPUSH 11/17/17 18:37 8 mg ONETIME ONE Administration Departure - Departure Time of Disposition: 20:12 Disposition: Admitted As Inpatient 67 Clinical Impression: Pancreatitis Qualifiers: Chronicity: acute Pancreatitis type: alcohol induced Acute pancreatitis complication: unspecified Qualified Code(s): K85.20 - Alcohol induced acute pancreatitis without necrosis or infection - Discharge Information Referrals: PCP,None [Primary Care Provider] - Forms: ED Department Discharge - My Orders Last 24 Hours: My Active Orders 11/17/17 19:35 DRUG SCREEN, URINE [URCHEM] Stat HCG QUALITATIVE,URINE [URCHEM] Stat UA W/MICROSCOPIC [URIN] Stat - Assessment/Plan Last 24 Hours: My Active Orders 11/17/17 19:35 DRUG SCREEN, URINE [URCHEM] Stat HCG QUALITATIVE,URINE [URCHEM] Stat UA W/MICROSCOPIC [URIN] Stat
[2017-11-17] MEDS ORDERED: Ondansetron 4 MG/2 ML SDV IVPUSH ONE ×2 (18:36→20:53)
[2017-11-17] MEDS ORDERED: Ketorolac 30 MG/ML SDV IVPUSH ONE (18:40)
[2017-11-17 19:20] LABS: CHLORIDE,CL 102 mmol/L (98-107); SODIUM,NA 139 mmol/L (136-145)
[2017-11-17] MEDS ORDERED: HYDROmorphone 2 MG/ML SDV IV ONE (19:49)
[2017-11-17] MEDS ORDERED: Sodium Chloride 0.9% 10 ML Syringe FLUSH PRN (20:53)
[2017-11-17] MEDS ORDERED: Lactated Ringers 1,000 ML IV ONE (20:53)
[2017-11-17] MEDS ORDERED: Albuterol/Ipratropium 3.0-0.5 MG/3 ML Neb Soln NEB PRN (20:53)
[2017-11-17] MEDS ORDERED: Morphine 10 MG/ML Syringe IVPUSH PRN (20:53)
[2017-11-17] MEDS ORDERED: Sodium Chloride 0.9% 2.5 ML Syringe FLUSH PRN (20:53)
[2017-11-17] MEDS: Enoxaparin 40 MG/0.4 ML Syringe SUBCUT SCH (21:24)
[2017-11-17] MEDS: HYDROmorphone 2 MG/ML SDV IVPUSH PRN ×2 (21:29→23:33)
[2017-11-17] MEDS: Lactated Ringers 1,000 ML IV SCH (22:23)
[2017-11-18] MEDS: HYDROmorphone 2 MG/ML SDV IVPUSH PRN ×3 (01:37→05:43)
[2017-11-18] MEDS: Lactated Ringers 1,000 ML IV SCH (03:37)
[2017-11-18 06:06] LABS: CHLORIDE,CL 103 mmol/L (98-107); SODIUM,NA 139 mmol/L (136-145)
[2017-11-18] MEDS ORDERED: LORazepam 2 MG/ML SDV IVPUSH PRN (08:06)
[2017-11-18] MEDS ORDERED: Sodium Chloride 0.9% with KCl 1,000 ML IV SCH (08:15)
--- NOTE | 2017-11-18 08:15 | PCM.HP ---
H&P History of Present Illness - General Date of Service: 11/18/17 Admit Problem/Dx: Admission Diagnosis/Problem Admission Diagnosis/Problem Pancreatitis Source of Information: Patient History Limitations: Reports: No Limitations - History of Present Illness Initial Comments - Free Text/Narative: This 32 year old female with pmh of alcoholic pancreatitis presented to the ED last night with worsening abdominal pain. She was recently admitted 11/12 and discharged on 11/14 for pancreatitis. She reports she did take pain medication and drank a small about of [place] daily, 2-3 drinks since discharge. She reports epigastric pain which radiates to the back with associated nausea and she wasn' t able to keep any fluids down. She denies fevers, chills, urinary symptoms or lower abdominal pain. She denies black or bloody BMs and no coffee ground emesis or cara blood in emesis. She denies tobacco use or recreational drug use. In the ED No leukocytosis noted. Amylase 218 and lipase 4808. Ua revealed + bacteria with 2-4 WBCs. HCG negative. ETOH 37. BPs mildly elevated 140-150s/ 90s. She was given pain medication and IVFs. She was admitted for alcoholic pancreatitis. Abd/pelvis CT from 11/12/17 revealed acute pancreatitis no abscess, mild gallbladder distention with calculi or biliary enlargement. Possible cystic area within pancreatic head which is just over 1 cm in max dimension. abdominal Pain Score (Numeric/FACES): 8 - Related Data Allergies/Adverse Reactions: Allergies Allergy/AdvReac Type Severity Reaction Status Date / Time No Known Allergies Allergy Verified 11/17/17 18:16 Home Medications: Home Meds Acetaminophen/oxyCODONE [Percocet 325-5 MG] 1 each PO Q6H PRN #20 tab 11/14/17 [ Rx] Past Medical History - Past Health History Medical/Surgical History: Denies Medical/Surgical History HEENT History: Reports: None Cardiovascular History: Reports: None. Denies: CAD, High Cholesterol, Hypertension, ME Respiratory History: Reports: None. Denies: COPD, PE Gastrointestinal History: Reports: Pancreatitis Genitourinary History: Reports: None. 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 Denies: CVA, TIA Psychiatric History: Reports: Addiction Other Psychiatric History: ETOH Endocrine/Metabolic History: Reports: None. Denies: Diabetes, Type II Hematologic History: Reports: None Immunologic History: Reports: None Oncologic (Cancer) History: Reports: None Dermatologic History: Reports: None - Infectious Disease History Infectious Disease History: Reports: Chicken Pox - Past Surgical History Head Surgeries/Procedures: Reports: None HEENT Surgical History: Reports: None Cardiovascular Surgical History: Reports: None Respiratory Surgical History: Reports: None GI Surgical History: Reports: None Female Surgical History: Reports: None Endocrine Surgical History: Reports: None Neurological Surgical History: Reports: None Musculoskeletal Surgical History: Reports: None Oncologic Surgical History: Reports: None Dermatological Surgical History: Reports: None Social & Family History - Family History Family Medical History: Noncontributory Cardiac: Reports: ME - Tobacco Use Smoking Status *Q: Never Smoker Second Hand Smoke Exposure: No - Caffeine Use Caffeine Use: Reports: Coffee - Alcohol Use Days Per Week of Alcohol Use: 7 Number of Drinks Per Day: 3 Total Drinks Per Week: 21 Date of Last Drink: 11/18/17 Time of Last Drink: 08:00 - Recreational Drug Use Recreational Drug Use: No - Living Situation & Occupation Living situation: Reports: Single Occupation: Unemployed H&P Review of Systems - Review of Systems: Review Of Systems: See Below General: Reports: Fatigue. Denies: Fever, Chills, Malaise, Weakness HEENT: Reports: No Symptoms. Denies: Headaches, Sinus Congestion, Sore Throat, Vertigo Pulmonary: Reports: No Symptoms. Denies: Shortness of Breath Cardiovascular: Reports: No Symptoms. Denies: Chest Pain Gastrointestinal: Reports: Abdominal Pain (epigastric with radiation to back), Decreased Appetite, Nausea, Vomiting. Denies: Black Stool, Bloody Stool, Hematemesis, Melena Genitourinary: Reports: No Symptoms. Denies: Dysuria, Frequency, Burning, Pain , Urgency Musculoskeletal: Reports: No Symptoms Skin: Reports: No Symptoms Psychiatric: Reports: No Symptoms Neurological: Reports: No Symptoms Hematologic/Lymphatic: Reports: No Symptoms Immunologic: Reports: No Symptoms Exam - Exam Exam: See Below - Vital Signs Vital Signs: Last Vital Signs Temp 97.2 F 11/18/17 04:00 Pulse 88 11/18/17 04:00 Resp 19 11/18/17 04:00 BP 146/89 H 11/18/17 04:00 Pulse Ox 98 11/18/17 04:00 Weight: 77.4 kg - Exam General: Alert, Oriented, Cooperative HEENT: PERRLA, Hearing Intact, Mucosa Moist & Muddy, Nares Patent, Normal Nasal Septum, Posterior Pharynx Clear, Conjunctiva Clear, EOMI, EACs Clear, TMs Clear Neck: Supple, Trachea Midline, 2 Lungs: Clear to Auscultation, Normal Respiratory Effort Cardiovascular: Regular Rate, Regular Rhythm GI/Abdominal Exam: Normal Bowel Sounds, Soft, No Organomegaly, No Distention, No Abnormal Bruit, No Mass, Pelvis Stable, Tender (epigastric) Back Exam: Normal Inspection, Full Range of Motion, NT Extremities: Normal Inspection, Normal Range of Motion, Non-Tender, No Pedal Edema, Normal Capillary Refill Neuro Extensive - Mental Status: Alert, Oriented x3, Normal Mood/Affect, Normal Cognition Neuro Extensive - Motor, Sensory, Reflexes: CN II-XII Intact, Normal Gait, Normal Reflexes Psychiatric: Alert, Anxious. No: Withdrawal Symptoms - Patient Data Lab Results Last 24 hrs: Laboratory Results - last 24 hr 11/17/17 11/17/17 11/17/17 Range/Units 18:40 18:48 18:48 WBC 9.39 (4.0-11.0) K/uL RBC 3.97 L (4.30-5.90) M/uL Hgb 12.7 (12.0-16.0) g/dL Hct 36.3 (36.0-46.0) % MCV 91.4 (80.0-98.0) fL MCH 32.0 (27.0-32.0) pg MCHC 35.0 (31.0-37.0) g/dL RDW Std Deviation 44.2 (28.0-62.0) fl RDW Coeff of [place] 13 (11.0-15.0) % Plt Count 261 (150-400) K/uL MPV 8.30 (7.40-12.00) fL Neut % (Auto) 72.7 (48.0-80.0) % Lymph % (Auto) 22.6 (16.0-40.0) % [place] % (Auto) 4.4 (0.0-15.0) % Eos % (Auto) 0.1 (0.0-7.0) % Baso % (Auto) 0.2 (0.0-1.5) % Neut # (Auto) 6.8 H (1.4-5.7) K/uL Lymph # (Auto) 2.1 (0.6-2.4) K/uL [place] # (Auto) 0.4 (0.0-0.8) K/uL Eos # (Auto) 0.0 (0.0-0.7) K/uL Baso # (Auto) 0.0 (0.0-0.1) K/uL Nucleated RBC % 0.0 /100WBC Nucleated RBCs # 0 K/uL Sodium 139 (136-145) mmol/L Potassium 3.6 (3.5-5.1) mmol/L Chloride 102 (98-107) mmol/L Carbon Dioxide 21.4 (21.0-32.0) mmol/L BUN 9 (7.0-18.0) mg/dL Creatinine 0.7 (0.6-1.0) mg/dL Est Cr Clr Drug Dosing 100.55 mL/min Estimated GFR (MDRD) > 60.0 ml/min Glucose 95 (74-106) mg/dL Calcium 8.4 L (8.5-10.1) mg/dL Total Bilirubin 0.3 (0.2-1.0) mg/dL AST 22 (15-37) IU/L ALT 17 (14-63) IU/L Alkaline Phosphatase 105 (46-116) U/L Total Protein 6.7 (6.4-8.2) g/dL Albumin 3.0 L (3.4-5.0) g/dL Globulin 3.7 H (2.0-3.5) g/dL Albumin/Globulin Ratio 0.8 L (1.3-2.8) Amylase 218 H (25-115) U/L Lipase 4808 H (73-393) U/L Urine Color Urine Appearance Urine pH (5.0-8.0) Ur Specific [place] (1.001-1.035) Urine Protein (NEGATIVE) mg/dL Urine Glucose (UA) (NEGATIVE) mg/dL Urine Ketones (NEGATIVE) mg/dL Urine Occult Blood (NEGATIVE) Urine Nitrite (NEGATIVE) Urine Bilirubin (NEGATIVE) Urine Urobilinogen (<2.0) EU/dL Ur Leukocyte Esterase (NEGATIVE) Urine RBC (0-2/HPF) Urine WBC (0-5/HPF) Ur Epithelial Cells (NONE-FEW) Urine Bacteria (NEGATIVE) Urine HCG, Qual (NEGATIVE) Urine Opiates Screen (NEGATIVE) Ur Oxycodone Screen (NEGATIVE) Urine Methadone Screen (NEGATIVE) Ur Barbiturates Screen (NEGATIVE) Ur Phencyclidine Scrn (NEGATIVE) Ur Amphetamine Screen (NEGATIVE) U Methamphetamines Scrn (NEGATIVE) U Benzodiazepines Scrn (NEGATIVE) U Cocaine Metab Screen (NEGATIVE) U Marijuana (THC) Screen (NEGATIVE) Ethyl Alcohol 37 mg/dL 11/17/17 11/17/17 11/17/17 Range/Units 19:35 19:35 19:35 WBC (4.0-11.0) K/uL RBC (4.30-5.90) M/uL Hgb (12.0-16.0) g/dL Hct (36.0-46.0) % MCV (80.0-98.0) fL MCH (27.0-32.0) pg MCHC (31.0-37.0) g/dL RDW Std Deviation (28.0-62.0) fl RDW Coeff of [place] (11.0-15.0) % Plt Count (150-400) K/uL MPV (7.40-12.00) fL Neut % (Auto) (48.0-80.0) % Lymph % (Auto) (16.0-40.0) % [place] % (Auto) (0.0-15.0) % Eos % (Auto) (0.0-7.0) % Baso % (Auto) (0.0-1.5) % Neut # (Auto) (1.4-5.7) K/uL Lymph # (Auto) (0.6-2.4) K/uL [place] # (Auto) (0.0-0.8) K/uL Eos # (Auto) (0.0-0.7) K/uL Baso # (Auto) (0.0-0.1) K/uL Nucleated RBC % /100WBC Nucleated RBCs # K/uL Sodium (136-145) mmol/L Potassium (3.5-5.1) mmol/L Chloride (98-107) mmol/L Carbon Dioxide (21.0-32.0) mmol/L BUN (7.0-18.0) mg/dL Creatinine (0.6-1.0) mg/dL Est Cr Clr Drug Dosing mL/min Estimated GFR (MDRD) ml/min Glucose (74-106) mg/dL Calcium (8.5-10.1) mg/dL Total Bilirubin (0.2-1.0) mg/dL AST (15-37) IU/L ALT (14-63) IU/L Alkaline Phosphatase (46-116) U/L Total Protein (6.4-8.2) g/dL Albumin (3.4-5.0) g/dL Globulin (2.0-3.5) g/dL Albumin/Globulin Ratio (1.3-2.8) Amylase (25-115) U/L Lipase (73-393) U/L Urine Color YELLOW Urine Appearance SLT CLOUDY Urine pH 8.0 (5.0-8.0) Ur Specific [place] 1.015 (1.001-1.035) Urine Protein TRACE (NEGATIVE) mg/dL Urine Glucose (UA) NEGATIVE (NEGATIVE) mg/dL Urine Ketones 15 H (NEGATIVE) mg/dL Urine Occult Blood MODERATE (NEGATIVE) Urine Nitrite NEGATIVE (NEGATIVE) Urine Bilirubin NEGATIVE (NEGATIVE) Urine Urobilinogen 0.2 (<2.0) EU/dL Ur Leukocyte Esterase TRACE (NEGATIVE) Urine RBC 0-2 (0-2/HPF) Urine WBC 2-4 (0-5/HPF) Ur Epithelial Cells OCCASIONAL (NONE-FEW) Urine Bacteria 2+ H (NEGATIVE) Urine HCG, Qual NEGATIVE (NEGATIVE) Urine Opiates Screen NEGATIVE (NEGATIVE) Ur Oxycodone Screen POSITIVE (NEGATIVE) Urine Methadone Screen NEGATIVE (NEGATIVE) Ur Barbiturates Screen NEGATIVE (NEGATIVE) Ur Phencyclidine Scrn NEGATIVE (NEGATIVE) Ur Amphetamine Screen NEGATIVE (NEGATIVE) U Methamphetamines Scrn NEGATIVE (NEGATIVE) U Benzodiazepines Scrn NEGATIVE (NEGATIVE) U Cocaine Metab Screen NEGATIVE (NEGATIVE) U Marijuana (THC) Screen NEGATIVE (NEGATIVE) Ethyl Alcohol mg/dL 18 11/18/17 Range/Units 05:25 05:25 WBC 9.27 (4.0-11.0) K/uL RBC 3.42 L (4.30-5.90) M/uL Hgb 11.0 L (12.0-16.0) g/dL Hct 32.3 L (36.0-46.0) % MCV 94.4 (80.0-98.0) fL MCH 32.2 H (27.0-32.0) pg MCHC 34.1 (31.0-37.0) g/dL RDW Std Deviation 47.0 (28.0-62.0) fl RDW Coeff of [place] 14 (11.0-15.0) % Plt Count 218 (150-400) K/uL MPV 8.60 (7.40-12.00) fL Neut % (Auto) (48.0-80.0) % Lymph % (Auto) (16.0-40.0) % [place] % (Auto) (0.0-15.0) % Eos % (Auto) (0.0-7.0) % Baso % (Auto) (0.0-1.5) % Neut # (Auto) (1.4-5.7) K/uL Lymph # (Auto) (0.6-2.4) K/uL [place] # (Auto) (0.0-0.8) K/uL Eos # (Auto) (0.0-0.7) K/uL Baso # (Auto) (0.0-0.1) K/uL Nucleated RBC % 0.0 /100WBC Nucleated RBCs # 0 K/uL Sodium 139 (136-145) mmol/L Potassium 3.0 L (3.5-5.1) mmol/L Chloride 103 (98-107) mmol/L Carbon Dioxide 29.1 (21.0-32.0) mmol/L BUN 7 (7.0-18.0) mg/dL Creatinine 0.8 (0.6-1.0) mg/dL Est Cr Clr Drug Dosing 87.99 mL/min Estimated GFR (MDRD) > 60.0 ml/min Glucose 104 (74-106) mg/dL Calcium 7.5 L (8.5-10.1) mg/dL Total Bilirubin 0.6 (0.2-1.0) mg/dL AST 20 (15-37) IU/L ALT 16 (14-63) IU/L Alkaline Phosphatase 86 (46-116) U/L Total Protein 5.7 L (6.4-8.2) g/dL Albumin 2.6 L (3.4-5.0) g/dL Globulin 3.1 (2.0-3.5) g/dL Albumin/Globulin Ratio 0.8 L (1.3-2.8) Amylase (25-115) U/L Lipase 3660 H (73-393) U/L Urine Color Urine Appearance Urine pH (5.0-8.0) Ur Specific [place] (1.001-1.035) Urine Protein (NEGATIVE) mg/dL Urine Glucose (UA) (NEGATIVE) mg/dL Urine Ketones (NEGATIVE) mg/dL Urine Occult Blood (NEGATIVE) Urine Nitrite (NEGATIVE) Urine Bilirubin (NEGATIVE) Urine Urobilinogen (<2.0) EU/dL Ur Leukocyte Esterase (NEGATIVE) Urine RBC (0-2/HPF) Urine WBC (0-5/HPF) Ur Epithelial Cells (NONE-FEW) Urine Bacteria (NEGATIVE) Urine HCG, Qual (NEGATIVE) Urine Opiates Screen (NEGATIVE) Ur Oxycodone Screen (NEGATIVE) Urine Methadone Screen (NEGATIVE) Ur Barbiturates Screen (NEGATIVE) Ur Phencyclidine Scrn (NEGATIVE) Ur Amphetamine Screen (NEGATIVE) U Methamphetamines Scrn (NEGATIVE) U Benzodiazepines Scrn (NEGATIVE) U Cocaine Metab Screen (NEGATIVE) U Marijuana (THC) Screen (NEGATIVE) Ethyl Alcohol mg/dL Result Diagrams: 11/18/17 05:25 18 05:25 *Q Meaningful Use (ADM) - VTE Risk Assess *Q Each Risk Factor Represents 1 Point: None Total Score 1 Point Risk Factors: 0 Each Risk Factor Represents 2 Points: None Total Score 2 Point Risk Factors: 0 Each Risk Factor Represents 3 Points: None Total Score 3 Point Risk Factors: 0 Each Risk Factor Represents 5 Points: None Total Score 5 Point Risk Factors: 0 Venous Thromboembolism Risk Factor Score *Q: 0 - Problem List (1) Acute on chronic pancreatitis SNOMED Code(s): 339168493 ICD Code: K85.90 - ACUTE PANCREATITIS WITHOUT NECROSIS OR INFECTION, UNSP; K86.1 - OTHER CHRONIC PANCREATITIS Status: Acute Current Visit: No (2) UTI (urinary tract infection) SNOMED Code(s): 62014270 ICD Code: N39.0 - URINARY TRACT INFECTION, SITE NOT SPECIFIED Status: Acute Current Visit: No Qualifiers: Urinary tract infection type: acute cystitis Hematuria presence: without hematuria Qualified Code(s): N30.00 - Acute cystitis without hematuria (3) Alcohol abuse SNOMED Code(s): 83589072 ICD Code: F10.10 - ALCOHOL ABUSE, UNCOMPLICATED Status: Chronic Current Visit: No Problem List Initiated/Reviewed/Updated: Yes Orders Last 24hrs: Active Orders 24 hr Category Date Time Status Admission Status [Patient Status] [ADT] Stat ADT 11/17/17 20:18 Active CIWAA Assessment [RC] Q4H Care 11/18/17 08:07 Active Oxygen Therapy [RC] PRN Care 11/17/17 20:53 Active Pulse Oximetry [RC] PRN Care 11/17/17 20:53 Active RT Aerosol Therapy [RC] ASDIRECTED Care 11/17/17 20:55 Active Up ad [place] [RC] ASDIRECTED Care 11/17/17 20:53 Active VTE/DVT Education [RC] PER UNIT ROUTINE Care 11/17/17 20:53 Active Vital Signs [RC] Q4H Care 11/17/17 20:53 Active Consult to Case Management [CONS] Routine Cons 11/17/17 20:53 Active Consult to Gripper Attacher [CONS] Routine Cons 11/17/17 20:53 Active CBC W/O DIFF,HEMOGRAM [HEME] AM Lab 11/19/17 05:11 Ordered CBC W/O DIFF,HEMOGRAM [HEME] AM Lab 11/20/17 05:11 Ordered CBC W/O DIFF,HEMOGRAM [HEME] AM Lab 11/21/17 05:11 Ordered COMPREHENSIVE METABOLIC PN,CMP [CHEM] AM Lab 11/19/17 05:11 Ordered COMPREHENSIVE METABOLIC PN,CMP [CHEM] AM Lab 11/20/17 05:11 Ordered COMPREHENSIVE METABOLIC PN,CMP [CHEM] AM Lab 11/21/17 05:11 Ordered COMPREHENSIVE METABOLIC PN,CMP [CHEM] AM Lab 11/22/17 05:11 Ordered DRUG SCREEN, URINE [URCHEM] Stat Lab 11/17/17 19:35 Ordered HCG QUALITATIVE,URINE [URCHEM] Stat Lab 11/17/17 19:35 Ordered LIPASE [CHEM] AM Lab 11/19/17 05:11 Ordered UA W/MICROSCOPIC [URIN] Stat Lab 11/17/17 19:35 Ordered Albuterol/Ipratropium [DuoNeb 3.0-0.5 MG/3 ML] Med 11/17/17 20:53 Active 3 ml NEB Q4HRRT PRN Enoxaparin [Lovenox] Med 11/17/17 21:00 Active 40 mg SUBCUT Q24H Folic Acid Med 11/18/17 09:00 Active 1 mg SUBCUT DAILY HYDROmorphone [Dilaudid] Med 11/18/17 07:30 Active 0.5 mg IVPUSH Q2H PRN LORazepam [Ativan] Med 11/18/17 08:06 Active See Protocol IVPUSH Q4H PRN Lactated Ringers [Ringers, Lactated] 1,000 ml Med 11/17/17 21:00 Active IV ASDIRECTED Ondansetron [Zofran] Med 11/17/17 20:53 Active 4 mg IVPUSH Q4H PRN Pantoprazole [ProTONIX IV] Med 11/18/17 08:15 Active 40 mg IVPUSH Q24H Sodium Chloride 0.9% [Saline Flush] Med 11/17/17 20:53 Active 10 ml FLUSH ASDIRECTED PRN Sodium Chloride 0.9% [Saline Flush] Med 11/17/17 20:53 Active 2.5 ml FLUSH ASDIRECTED PRN Sodium Chloride 0.9% with KCl [Normal Saline with 40 Med 11/18/17 08:15 Active mEq KCl] 1,000 ml IV ASDIRECTED Thiamine [Vitamin B-1] Med 11/18/17 09:00 Active 100 mg IV DAILY Peripheral IV Insertion Adult [OM.PC] Routine Oth 11/17/17 20:53 Ordered Saline Lock Insert [OM.PC] Routine Oth 11/17/17 20:53 Ordered Resuscitation Status Routine Resus Stat 11/17/17 20:53 Ordered Medication Orders Albuterol/Ipratropium (Duoneb 3.0-0.5 Mg/3 Ml) 3 ml NEB Q4HRRT PRN PRN Reason: Shortness Of Breath/wheezing Enoxaparin Sodium (Lovenox) 40 mg SUBCUT Q24H [facility] Last Admin: 11/17/17 21:24 Dose: 40 mg Folic Acid (Folic Acid) 1 mg SUBCUT DAILY [facility] Hydromorphone HCl (Dilaudid) 0.5 mg IVPUSH Q2H PRN PRN Reason: Pain (severe 7-10) Lactated Ringer's (Ringers, Lactated) 1,000 mls @ 200 mls/hr IV ASDIRECTED [facility] Last Admin: 11/18/17 03:37 Dose: 200 mls/hr Infusion: 11/18/17 03:23 Dose: 200 mls/hr Admin: 11/17/17 22:23 Dose: 200 mls/hr Potassium Chloride/Sodium Chloride (Normal Saline With 40 Meq Kcl) 1,000 mls @ 150 mls/hr IV ASDIRECTED [facility] Stop: 11/18/17 14:54 Lorazepam (Ativan) 0 mg IVPUSH Q4H PRN; Protocol PRN Reason: CIWAA Ondansetron HCl (Zofran) 4 mg IVPUSH Q4H PRN PRN Reason: Nausea Pantoprazole Sodium (Protonix Iv) 40 mg IVPUSH Q24H [facility] Sodium Chloride (Saline Flush) 10 ml FLUSH ASDIRECTED PRN PRN Reason: Keep Vein Open Sodium Chloride (Saline Flush) 2.5 ml FLUSH ASDIRECTED PRN PRN Reason: Keep Vein Open Thiamine HCl (Vitamin B-1) 100 mg IV DAILY [facility] Assessment/Plan Comment:: This 32 year old female admitted with acute on chronic pancreatitis 1. Acute on chronic alcoholic pancreatitis: Bowel rest, ice chips ok. LR 200 mls /hr Analgesia and antiemetics PRN. Lipase decreased today, 3660. Will replace potassium IV today due to nausea. K+ 3.0. Will check magnesium 2. UTI: UC pending. Will start Rocephin 1 gm IV daily. 3. Alcohol abuse: Denies wanting inpatient rehab. But wants outpatient rehab resources. WIll give this and set up with human Services for there assistance in outpatient rehab. Supplement with thiamine, folic acid. CIWAA protocol with Ativan. Protonix IV daily. VTE prophylaxis: Lovenox.
[2017-11-18] MEDS: HYDROmorphone 1 MG/ML Syringe IVPUSH PRN ×7 (08:17→23:28)
[2017-11-18] MEDS: Thiamine 200 MG/2 ML MDV IV SCH (08:43)
[2017-11-18] MEDS: Folic Acid 50 MG/10 ML MDV SUBCUT SCH (08:43)
[2017-11-18] MEDS: Pantoprazole 40 MG Vial IVPUSH SCH (08:43)
[2017-11-18] MEDS ORDERED: Potassium Chloride 20 MEQ Tab.ER PO ONE (09:22)
[2017-11-18] MEDS ORDERED: D5 1/2 NS w/ 40 mEq/L KCl 1,000 ML IV SCH (09:30)
[2017-11-18] MEDS ORDERED: cefTRIAXone 1 GM in Premix Bag 1 BAG IV SCH (12:15)
[2017-11-18] MEDS: Ondansetron 4 MG/2 ML SDV IVPUSH PRN (13:34)
[2017-11-18] MEDS: cefTRIAXone 1 GM in Sodium Chloride 0.9% 50 ML IV SCH (13:37)
[2017-11-18] MEDS ORDERED: Magnesium Sulfate/Water 4 GM in Premix Bag 1 BAG IV ONE (13:44)
[2017-11-18] MEDS: Sodium Chloride 0.9% with KCl 1,000 ML IV SCH ×2 (17:30→18:44)
[2017-11-18] MEDS: Enoxaparin 40 MG/0.4 ML Syringe SUBCUT SCH (20:27)
[2017-11-19] MEDS: Sodium Chloride 0.9% with KCl 1,000 ML IV SCH ×2 (00:47→10:40)
[2017-11-19] MEDS: HYDROmorphone 1 MG/ML Syringe IVPUSH PRN ×6 (02:39→15:22)
[2017-11-19 05:39] LABS: CHLORIDE,CL 102 mmol/L (98-107); SODIUM,NA 133 mmol/L (136-145)
[2017-11-19] MEDS ORDERED: Calcium Carbonate 500 MG Tab.Chew PO ONE (08:04)
--- NOTE | 2017-11-19 08:05 | PCM.PN ---
- General Info Date of Service: 11/19/17 Admission Dx/Problem (Free Text): Admission Diagnosis/Problem Admission Diagnosis/Problem Pancreatitis Subjective Update: Had pain control issues overnight, more radiation to her back. Which is where her pancreatitis tends to give her more pain along with epigastric pain. Nausea has improved. No other concerns today. No chest pain or SOB. Functional Status: Reports: Tolerating Diet, Ambulating, Urinating - Review of Systems General: Reports: No Symptoms. Denies: Fever, Weakness, Fatigue, Malaise HEENT: Reports: No Symptoms. Denies: Headaches, Sore Throat Pulmonary: Reports: No Symptoms. Denies: Shortness of Breath Cardiovascular: Reports: No Symptoms. Denies: Chest Pain Gastrointestinal: Reports: Abdominal Pain (epigastric which radiates to mid back ). Denies: Nausea, Vomiting Genitourinary: Reports: No Symptoms. Denies: Dysuria, Frequency, Burning, Pain Musculoskeletal: Reports: No Symptoms Skin: Reports: No Symptoms Neurological: Reports: No Symptoms Psychiatric: Reports: No Symptoms - Patient Data Vitals - Most Recent: Last Vital Signs Temp 97.3 F 11/19/17 04:00 Pulse 75 11/19/17 04:00 Resp 18 11/19/17 04:00 BP 165/109 H 11/19/17 04:00 Pulse Ox 99 11/19/17 04:00 Weight - Most Recent: 77.4 kg I&O - Last 24 Hours: Intake & Output 11/18/17 11/19/17 11/19/17 22:59 06:59 14:59 Intake Total 714 0 Output Total 700 2100 Balance 14 -2100 Lab Results Last 24 Hours: Laboratory Results - last 24 hr 11/18/17 11/19/17 11/19/17 Range/Units 05:25 05:05 05:05 WBC 8.34 (4.0-11.0) K/uL RBC 3.22 L (4.30-5.90) M/uL Hgb 10.3 L (12.0-16.0) g/dL Hct 31.1 L (36.0-46.0) % MCV 96.6 (80.0-98.0) fL MCH 32.0 (27.0-32.0) pg MCHC 33.1 (31.0-37.0) g/dL RDW Std Deviation 46.7 (28.0-62.0) fl RDW Coeff of [place] 13 (11.0-15.0) % Plt Count 216 (150-400) K/uL MPV 8.40 (7.40-12.00) fL Nucleated RBC % 0.0 /100WBC Nucleated RBCs # 0 K/uL Sodium 133 L (136-145) mmol/L Potassium 4.4 (3.5-5.1) mmol/L Chloride 102 (98-107) mmol/L Carbon Dioxide 23.9 (21.0-32.0) mmol/L BUN 2 L (7.0-18.0) mg/dL Creatinine 0.6 (0.6-1.0) mg/dL Est Cr Clr Drug Dosing 117.31 mL/min Estimated GFR (MDRD) > 60.0 ml/min Glucose 89 (74-106) mg/dL Calcium 7.1 L (8.5-10.1) mg/dL Magnesium 1.1 L 1.8 (1.5-2.0) mg/dL Total Bilirubin 0.8 (0.2-1.0) mg/dL AST 22 (15-37) IU/L ALT 15 (14-63) IU/L Alkaline Phosphatase 89 (46-116) U/L Total Protein 6.2 L (6.4-8.2) g/dL Albumin 2.9 L (3.4-5.0) g/dL Globulin 3.3 (2.0-3.5) g/dL Albumin/Globulin Ratio 0.9 L (1.3-2.8) Lipase 3733 H (73-393) U/L Med Orders - Current: Current Medications Albuterol/Ipratropium (Duoneb 3.0-0.5 Mg/3 Ml) 3 ml NEB Q4HRRT PRN PRN Reason: Shortness Of Breath/wheezing Calcium Carbonate/Glycine (Tums) 1,000 mg PO ONETIME ONE Stop: 11/19/17 08:05 Enoxaparin Sodium (Lovenox) 40 mg SUBCUT Q24H [facility] Last Admin: 11/18/17 20:27 Dose: 40 mg Folic Acid (Folic Acid) 1 mg SUBCUT DAILY [facility] Last Admin: 11/18/17 08:43 Dose: 1 mg Hydromorphone HCl (Dilaudid) 1 mg IVPUSH Q3H PRN PRN Reason: Pain Last Admin: 11/19/17 05:39 Dose: 1 mg Ceftriaxone Sodium 1 gm/ (Sodium Chloride) 50 mls @ 100 mls/hr IV Q24H [facility] Last Admin: 11/18/17 13:37 Dose: 100 mls/hr Lactated Ringer's (Ringers, Lactated) 1,000 mls @ 200 mls/hr IV ASDIRECTED [facility] Lorazepam (Ativan) 0 mg IVPUSH Q4H PRN; Protocol PRN Reason: CIWAA Ondansetron HCl (Zofran) 4 mg IVPUSH Q4H PRN PRN Reason: Nausea Last Admin: 11/18/17 13:34 Dose: 4 mg Pantoprazole Sodium (Protonix Iv) 40 mg IVPUSH Q24H [facility] Last Admin: 11/18/17 08:43 Dose: 40 mg Sodium Chloride (Saline Flush) 10 ml FLUSH ASDIRECTED PRN PRN Reason: Keep Vein Open Sodium Chloride (Saline Flush) 2.5 ml FLUSH ASDIRECTED PRN PRN Reason: Keep Vein Open Thiamine HCl (Vitamin B-1) 100 mg IV DAILY [facility] Last Admin: 11/18/17 08:43 Dose: 100 mg Discontinued Medications Hydromorphone HCl (Dilaudid) 0.5 mg IV ONETIME ONE Stop: 11/17/17 19:50 Last Admin: 11/17/17 20:27 Dose: 0.5 mg Hydromorphone HCl (Dilaudid) 0.5 mg IVPUSH Q2H PRN PRN Reason: Pain (severe 7-10) Last Admin: 11/18/17 05:43 Dose: 0.5 mg Hydromorphone HCl (Dilaudid) 0.5 mg IVPUSH Q2H PRN PRN Reason: Pain (severe 7-10) Last Admin: 11/18/17 18:02 Dose: 0.5 mg Sodium Chloride (Normal Saline) 1,000 mls @ 999 mls/hr IV STAT ONE Stop: 11/17/17 19:17 Last Admin: 11/17/17 18:38 Dose: 999 mls/hr Lactated Ringer's (Ringers, Lactated) 1,000 mls @ 999 mls/hr IV .BOLUS ONE Stop: 11/17/17 21:53 Last Admin: 11/17/17 21:06 Dose: 999 mls/hr Lactated Ringer's (Ringers, Lactated) 1,000 mls @ 200 mls/hr IV ASDIRECTED [facility] Last Admin: 11/18/17 03:37 Dose: 200 mls/hr Potassium Chloride/Sodium Chloride (Normal Saline With 40 Meq Kcl) 1,000 mls @ 150 mls/hr IV ASDIRECTED [facility] Stop: 11/18/17 14:54 Last Admin: 11/18/17 08:43 Dose: 150 mls/hr Potassium Chloride/Dextrose/Sod Cl (D5 1/2 Ns W/ 40 Meq/L Kcl) 1,000 mls @ 9, 999 mls/hr IV ASDIRECTED [facility] Ceftriaxone Sodium/Dextrose 1 (gm/ Premix) 50 mls @ 100 mls/hr IV Q24H [facility] Ceftriaxone Sodium 1 gm/ (Sodium Chloride) 50 mls @ 100 mls/hr IV Q24H [facility] Magnesium Sulfate 4 gm/ Premix 100 mls @ 50 mls/hr IV ONETIME ONE Stop: 11/18/17 15:43 Last Admin: 11/18/17 14:25 Dose: 50 mls/hr Potassium Chloride/Sodium Chloride (Normal Saline With 40 Meq Kcl) 1,000 mls @ 150 mls/hr IV Q7H [facility] Last Admin: 11/19/17 00:47 Dose: 150 mls/hr Ketorolac Tromethamine (Toradol) 30 mg IVPUSH ONETIME ONE Stop: 11/17/17 18:41 Last Admin: 11/17/17 19:02 Dose: 30 mg Morphine Sulfate (Morphine) 2 mg IVPUSH Q2H PRN PRN Reason: Pain (severe 7-10) Stop: 11/18/17 20:55 Ondansetron HCl (Zofran) 8 mg IVPUSH ONETIME ONE Stop: 11/17/17 18:37 Last Admin: 11/17/17 18:40 Dose: 8 mg Ondansetron HCl (Zofran) 4 mg IVPUSH ONETIME ONE Stop: 11/17/17 20:54 Last Admin: 11/17/17 21:05 Dose: 4 mg Potassium Chloride (Klor-Con M20) 40 meq PO ONETIME ONE Stop: 11/18/17 09:23 Last Admin: 11/18/17 10:16 Dose: 40 meq - Exam General: Alert, Oriented, Cooperative, No Acute Distress Neck: Supple Lungs: Clear to Auscultation, Normal Respiratory Effort Cardiovascular: Regular Rate, Regular Rhythm GI/Abdominal Exam: Normal Bowel Sounds, Soft, No Distention, No Mass, Tender ( epigastric region remains very tender to palpation) Back Exam: Normal Inspection, Full Range of Motion Extremities: Normal Inspection, Normal Range of Motion, Non-Tender, No Pedal Edema, Normal Capillary Refill Neurological: No New Focal Deficit Psy/Mental Status: Alert, Normal Affect, Normal Mood - Problem List & Annotations (1) Acute on chronic pancreatitis SNOMED Code(s): 828932412 Code(s): K85.90 - ACUTE PANCREATITIS WITHOUT NECROSIS OR INFECTION, UNSP; K86.1 - OTHER CHRONIC PANCREATITIS Status: Acute Current Visit: No (2) UTI (urinary tract infection) SNOMED Code(s): 07291956 Code(s): N39.0 - URINARY TRACT INFECTION, SITE NOT SPECIFIED Status: Acute Current Visit: No Qualifiers: Urinary tract infection type: acute cystitis Hematuria presence: without hematuria Qualified Code(s): N30.00 - Acute cystitis without hematuria (3) Alcohol abuse SNOMED Code(s): 02337567 Code(s): F10.10 - ALCOHOL ABUSE, UNCOMPLICATED Status: Chronic Current Visit: No - Problem List Review Problem List Initiated/Reviewed/Updated: Yes - My Orders Last 24 Hours: My Active Orders 11/18/17 08:06 LORazepam [Ativan] See Protocol IVPUSH Q4H PRN 11/18/17 08:07 CIWAA Assessment [RC] Q4H 11/18/17 08:15 Pantoprazole [ProTONIX IV] 40 mg IVPUSH Q24H 11/18/17 09:00 Folic Acid 1 mg SUBCUT DAILY Thiamine [Vitamin B-1] 100 mg IV DAILY 11/18/17 12:10 CULTURE URINE [RM] Routine 11/18/17 12:15 cefTRIAXone [Rocephin] 1 gm Sodium Chloride 0.9% [Normal Saline] 50 ml IV Q24H 11/19/17 08:04 Calcium Carbonate [Tums] 1,000 mg PO ONETIME ONE 11/19/17 08:15 Lactated Ringers [Ringers, Lactated] 1,000 ml IV ASDIRECTED 11/20/17 05:11 MAGNESIUM [CHEM] AM 11/21/17 05:11 MAGNESIUM [CHEM] AM - Plan Plan:: This 32 year old female admitted with acute on chronic pancreatitis 1. Acute on chronic alcoholic pancreatitis: Slow improvement. Continue bowel rest, ice chips ok. LR 200 mls/hr Analgesia and antiemetics PRN. Lipase decreased today, 3780. Potassium replaced yesterday and overnight, today 4.4. magnesium replaced as well. Mg today 1.8. Pain not well controlled, changed dilaudid to 1 mg every 2 hours will monitor relief, BP has remained up during the night, will monitor with better control. Denies chest pain. 2. UTI: UC pending. Continue Rocephin 1 gm IV daily. 3. Alcohol abuse: Denies wanting inpatient rehab. But wants outpatient rehab resources. Will give this and set up with human Services for there assistance in outpatient rehab. Supplement with thiamine, folic acid. CIWAA protocol with Ativan. Protonix IV daily. VTE prophylaxis: Lovenox. Dispo: 2-3 days pending improvement.
[2017-11-19] MEDS: Thiamine 200 MG/2 ML MDV IV SCH (08:53)
[2017-11-19] MEDS: Pantoprazole 40 MG Vial IVPUSH SCH (08:53)
[2017-11-19] MEDS: Folic Acid 50 MG/10 ML MDV SUBCUT SCH (08:55)
[2017-11-19] MEDS: Lactated Ringers 1,000 ML IV SCH ×4 (08:56→20:36)
[2017-11-19] MEDS ORDERED: cefTRIAXone 1 GM in Sodium Chloride 0.9% 50 ML IV SCH (12:15)
[2017-11-19] MEDS: cefTRIAXone 1 GM in Sodium Chloride 0.9% 50 ML IV SCH (12:32)
[2017-11-19] MEDS: Lisinopril 5 MG Tab PO SCH (14:18)
[2017-11-19] MEDS ORDERED: HYDROmorphone 2 MG/ML SDV IVPUSH PRN (16:44)
[2017-11-19] MEDS: Enoxaparin 40 MG/0.4 ML Syringe SUBCUT SCH (20:38)
[2017-11-19] MEDS: HYDROmorphone 2 MG/ML SDV IVPUSH PRN ×2 (20:48→23:54)
[2017-11-19] MEDS: Ondansetron 4 MG/2 ML SDV IVPUSH PRN (23:51)
[2017-11-20] MEDS: HYDROmorphone 2 MG/ML SDV IVPUSH PRN ×5 (02:57→15:04)
[2017-11-20] MEDS: Lactated Ringers 1,000 ML IV SCH ×4 (03:05→22:44)
[2017-11-20 06:28] LABS: CHLORIDE,CL 100 mmol/L (98-107); SODIUM,NA 135 mmol/L (136-145)
[2017-11-20] MEDS: Folic Acid 50 MG/10 ML MDV SUBCUT SCH (08:22)
[2017-11-20] MEDS: Pantoprazole 40 MG Vial IVPUSH SCH (08:22)
[2017-11-20] MEDS: Lisinopril 5 MG Tab PO SCH (08:22)
[2017-11-20] MEDS: Thiamine 200 MG/2 ML MDV IV SCH (08:23)
[2017-11-20] MEDS ORDERED: Magnesium Sulfate/Water 2 GM in Premix Bag 1 BAG IV ONE (09:00)
[2017-11-20] MEDS: cefTRIAXone 1 GM in Sodium Chloride 0.9% 50 ML IV SCH (11:24)
--- NOTE | 2017-11-20 12:20 | PCM.PN ---
- General Info Date of Service: 11/20/17 Admission Dx/Problem (Free Text): Admission Diagnosis/Problem Admission Diagnosis/Problem Pancreatitis Subjective Update: Patient lipase is 2000 today, started back on liquid diet , she is still on Dilaudid 2 mg q 3 h and says her pain is now controlled. - Review of Systems General: Reports: No Symptoms HEENT: Reports: No Symptoms Pulmonary: Reports: No Symptoms Cardiovascular: Reports: No Symptoms Gastrointestinal: Reports: Abdominal Pain Genitourinary: Reports: No Symptoms Musculoskeletal: Reports: No Symptoms Skin: Reports: No Symptoms Neurological: Reports: No Symptoms Psychiatric: Reports: No Symptoms - Patient Data Vitals - Most Recent: Last Vital Signs Temp 96.8 F 11/20/17 11:42 Pulse 80 11/20/17 11:42 Resp 18 11/20/17 11:42 BP 127/92 H 11/20/17 11:42 Pulse Ox 96 11/20/17 11:42 Weight - Most Recent: 170 lb 10.205 oz I&O - Last 24 Hours: Intake & Output 11/19/17 11/20/17 11/20/17 22:59 06:59 14:59 Intake Total 1020 1100 50 Output Total 2300 1100 Balance -1280 0 50 Lab Results Last 24 Hours: Laboratory Results - last 24 hr 11/19/17 11/19/17 11/20/17 Range/Units 20:16 20:16 05:58 WBC 9.34 7.11 (4.0-11.0) K/uL RBC 3.62 L 3.81 L (4.30-5.90) M/uL Hgb 11.6 L 12.2 (12.0-16.0) g/dL Hct 34.6 L 36.6 (36.0-46.0) % MCV 95.6 96.1 (80.0-98.0) fL MCH 32.0 32.0 (27.0-32.0) pg MCHC 33.5 33.3 (31.0-37.0) g/dL RDW Std Deviation 45.0 45.8 (28.0-62.0) fl RDW Coeff of [place] 13 13 (11.0-15.0) % Plt Count 237 242 (150-400) K/uL MPV 8.40 8.70 (7.40-12.00) fL Neut % (Auto) 58.7 (48.0-80.0) % Lymph % (Auto) 29.0 (16.0-40.0) % [place] % (Auto) 8.2 (0.0-15.0) % Eos % (Auto) 3.7 (0.0-7.0) % Baso % (Auto) 0.4 (0.0-1.5) % Neut # (Auto) 5.5 (1.4-5.7) K/uL Lymph # (Auto) 2.7 H (0.6-2.4) K/uL [place] # (Auto) 0.8 (0.0-0.8) K/uL Eos # (Auto) 0.4 (0.0-0.7) K/uL Baso # (Auto) 0.0 (0.0-0.1) K/uL Nucleated RBC % 0.0 0.0 /100WBC Nucleated RBCs # 0 0 K/uL Sodium (136-145) mmol/L Potassium (3.5-5.1) mmol/L Chloride (98-107) mmol/L Carbon Dioxide (21.0-32.0) mmol/L BUN (7.0-18.0) mg/dL Creatinine (0.6-1.0) mg/dL Est Cr Clr Drug Dosing mL/min Estimated GFR (MDRD) ml/min Glucose (74-106) mg/dL Calcium (8.5-10.1) mg/dL Phosphorus (2.6-4.7) mg/dL Magnesium (1.5-2.0) mg/dL Total Bilirubin (0.2-1.0) mg/dL AST (15-37) IU/L ALT (14-63) IU/L Alkaline Phosphatase (46-116) U/L Total Protein (6.4-8.2) g/dL Albumin (3.4-5.0) g/dL Globulin (2.0-3.5) g/dL Albumin/Globulin Ratio (1.3-2.8) Lipase 3267 H (73-393) U/L 11/20/17 11/20/17 Range/Units 05:58 05:58 WBC (4.0-11.0) K/uL RBC (4.30-5.90) M/uL Hgb (12.0-16.0) g/dL Hct (36.0-46.0) % MCV (80.0-98.0) fL MCH (27.0-32.0) pg MCHC (31.0-37.0) g/dL RDW Std Deviation (28.0-62.0) fl RDW Coeff of [place] (11.0-15.0) % Plt Count (150-400) K/uL MPV (7.40-12.00) fL Neut % (Auto) (48.0-80.0) % Lymph % (Auto) (16.0-40.0) % [place] % (Auto) (0.0-15.0) % Eos % (Auto) (0.0-7.0) % Baso % (Auto) (0.0-1.5) % Neut # (Auto) (1.4-5.7) K/uL Lymph # (Auto) (0.6-2.4) K/uL [place] # (Auto) (0.0-0.8) K/uL Eos # (Auto) (0.0-0.7) K/uL Baso # (Auto) (0.0-0.1) K/uL Nucleated RBC % /100WBC Nucleated RBCs # K/uL Sodium 135 L (136-145) mmol/L Potassium 4.2 (3.5-5.1) mmol/L Chloride 100 (98-107) mmol/L Carbon Dioxide 26.9 (21.0-32.0) mmol/L BUN 3 L (7.0-18.0) mg/dL Creatinine 0.6 (0.6-1.0) mg/dL Est Cr Clr Drug Dosing 117.31 mL/min Estimated GFR (MDRD) > 60.0 ml/min Glucose 77 (74-106) mg/dL Calcium 8.0 L (8.5-10.1) mg/dL Phosphorus 2.5 L (2.6-4.7) mg/dL Magnesium 1.4 L (1.5-2.0) mg/dL Total Bilirubin 0.9 (0.2-1.0) mg/dL AST 23 (15-37) IU/L ALT 14 (14-63) IU/L Alkaline Phosphatase 93 (46-116) U/L Total Protein 6.4 (6.4-8.2) g/dL Albumin 2.9 L (3.4-5.0) g/dL Globulin 3.5 (2.0-3.5) g/dL Albumin/Globulin Ratio 0.8 L (1.3-2.8) Lipase 2003 H (73-393) U/L Sky Results Last 24 Hours: Microbiology 11/17/17 19:35 Urine Culture - Final Urine, Clean Catch MIXED LESLEY 10,000-100,000 CFU/ML Med Orders - Current: Current Medications Albuterol/Ipratropium (Duoneb 3.0-0.5 Mg/3 Ml) 3 ml NEB Q4HRRT PRN PRN Reason: Shortness Of Breath/wheezing Enoxaparin Sodium (Lovenox) 40 mg SUBCUT Q24H [facility] Last Admin: 11/19/17 20:38 Dose: 40 mg Folic Acid (Folic Acid) 1 mg SUBCUT DAILY [facility] Last Admin: 11/20/17 08:22 Dose: 1 mg Hydromorphone HCl (Dilaudid) 2 mg IVPUSH Q3H PRN PRN Reason: Pain Last Admin: 11/20/17 12:00 Dose: 2 mg Ceftriaxone Sodium 1 gm/ (Sodium Chloride) 50 mls @ 100 mls/hr IV Q24H [facility] Last Admin: 11/20/17 11:24 Dose: 100 mls/hr Lactated Ringer's (Ringers, Lactated) 1,000 mls @ 200 mls/hr IV ASDIRECTED [facility] Last Admin: 11/20/17 11:25 Dose: 200 mls/hr Lisinopril (Prinivil) 5 mg PO DAILY [facility] Last Admin: 11/20/17 08:22 Dose: 5 mg Lorazepam (Ativan) 0 mg IVPUSH Q4H PRN; Protocol PRN Reason: CIWAA Last Admin: 11/19/17 19:55 Dose: 1 mg Ondansetron HCl (Zofran) 4 mg IVPUSH Q4H PRN PRN Reason: Nausea Last Admin: 11/19/17 23:51 Dose: 4 mg Pantoprazole Sodium (Protonix Iv) 40 mg IVPUSH Q24H [facility] Last Admin: 11/20/17 08:22 Dose: 40 mg Sodium Chloride (Saline Flush) 10 ml FLUSH ASDIRECTED PRN PRN Reason: Keep Vein Open Sodium Chloride (Saline Flush) 2.5 ml FLUSH ASDIRECTED PRN PRN Reason: Keep Vein Open Thiamine HCl (Vitamin B-1) 100 mg IV DAILY [facility] Last Admin: 11/20/17 08:23 Dose: 100 mg Discontinued Medications Calcium Carbonate/Glycine (Tums) 1,000 mg PO ONETIME ONE Stop: 11/19/17 08:05 Last Admin: 11/19/17 08:55 Dose: 1,000 mg Hydromorphone HCl (Dilaudid) 0.5 mg IV ONETIME ONE Stop: 11/17/17 19:50 Last Admin: 11/17/17 20:27 Dose: 0.5 mg Hydromorphone HCl (Dilaudid) 0.5 mg IVPUSH Q2H PRN PRN Reason: Pain (severe 7-10) Last Admin: 11/18/17 05:43 Dose: 0.5 mg Hydromorphone HCl (Dilaudid) 0.5 mg IVPUSH Q2H PRN PRN Reason: Pain (severe 7-10) Last Admin: 11/18/17 18:02 Dose: 0.5 mg Hydromorphone HCl (Dilaudid) 1 mg IVPUSH Q3H PRN PRN Reason: Pain Last Admin: 11/19/17 08:41 Dose: 1 mg Hydromorphone HCl (Dilaudid) 1 mg IVPUSH Q2H PRN PRN Reason: Pain Last Admin: 11/19/17 15:22 Dose: 1 mg Hydromorphone HCl (Dilaudid) 2 mg IVPUSH Q4H PRN PRN Reason: Pain Last Admin: 11/19/17 17:35 Dose: 2 mg Sodium Chloride (Normal Saline) 1,000 mls @ 999 mls/hr IV STAT ONE Stop: 11/17/17 19:17 Last Admin: 11/17/17 18:38 Dose: 999 mls/hr Lactated Ringer's (Ringers, Lactated) 1,000 mls @ 999 mls/hr IV .BOLUS ONE Stop: 11/17/17 21:53 Last Admin: 11/17/17 21:06 Dose: 999 mls/hr Lactated Ringer's (Ringers, Lactated) 1,000 mls @ 200 mls/hr IV ASDIRECTED [facility] Last Admin: 11/18/17 03:37 Dose: 200 mls/hr Potassium Chloride/Sodium Chloride (Normal Saline With 40 Meq Kcl) 1,000 mls @ 150 mls/hr IV ASDIRECTED [facility] Stop: 11/18/17 14:54 Last Admin: 11/18/17 08:43 Dose: 150 mls/hr Potassium Chloride/Dextrose/Sod Cl (D5 1/2 Ns W/ 40 Meq/L Kcl) 1,000 mls @ 9, 999 mls/hr IV ASDIRECTED [facility] Ceftriaxone Sodium/Dextrose 1 (gm/ Premix) 50 mls @ 100 mls/hr IV Q24H [facility] Ceftriaxone Sodium 1 gm/ (Sodium Chloride) 50 mls @ 100 mls/hr IV Q24H [facility] Magnesium Sulfate 4 gm/ Premix 100 mls @ 50 mls/hr IV ONETIME ONE Stop: 11/18/17 15:43 Last Admin: 11/18/17 14:25 Dose: 50 mls/hr Potassium Chloride/Sodium Chloride (Normal Saline With 40 Meq Kcl) 1,000 mls @ 150 mls/hr IV Q7H [facility] Last Admin: 11/19/17 10:40 Dose: Not Given Magnesium Sulfate 2 gm/ Premix 50 mls @ 50 mls/hr IV ONETIME ONE Stop: 11/20/17 09:59 Last Admin: 11/20/17 09:22 Dose: 50 mls/hr Ketorolac Tromethamine (Toradol) 30 mg IVPUSH ONETIME ONE Stop: 11/17/17 18:41 Last Admin: 11/17/17 19:02 Dose: 30 mg Morphine Sulfate (Morphine) 2 mg IVPUSH Q2H PRN PRN Reason: Pain (severe 7-10) Stop: 11/18/17 20:55 Ondansetron HCl (Zofran) 8 mg IVPUSH ONETIME ONE Stop: 11/17/17 18:37 Last Admin: 11/17/17 18:40 Dose: 8 mg Ondansetron HCl (Zofran) 4 mg IVPUSH ONETIME ONE Stop: 11/17/17 20:54 Last Admin: 11/17/17 21:05 Dose: 4 mg Potassium Chloride (Klor-Con M20) 40 meq PO ONETIME ONE Stop: 11/18/17 09:23 Last Admin: 11/18/17 10:16 Dose: 40 meq - Exam General: Alert, Oriented, Cooperative HEENT: Pupils Equal, Pupils Reactive Neck: Supple, Trachea Midline, No JVD, No Thyromegaly Lungs: Clear to Auscultation, Normal Respiratory Effort Cardiovascular: Regular Rate, Regular Rhythm, No Murmurs GI/Abdominal Exam: Normal Bowel Sounds, Soft, Non-Tender, No Organomegaly Back Exam: Normal Inspection Extremities: Normal Inspection Skin: Warm, Dry Neurological: No New Focal Deficit Psy/Mental Status: Alert, Normal Affect, Normal Mood - Problem List Review Problem List Initiated/Reviewed/Updated: Yes - My Orders Last 24 Hours: My Active Orders 11/19/17 19:43 HYDROmorphone [Dilaudid] 2 mg IVPUSH Q3H PRN 11/20/17 Lunch Clear Liquid Diet [DIET] 11/21/17 05:11 CBC W/O DIFF,HEMOGRAM [HEME] AM COMPREHENSIVE METABOLIC PN,CMP [CHEM] AM 11/22/17 05:11 COMPREHENSIVE METABOLIC PN,CMP [CHEM] AM - Plan Plan:: This 32 year old female admitted with acute on chronic pancreatitis 1. Acute pancreatitis possible acute on chronic , recommend MRI as outpatient . Slow improvement. Continue bowel rest, ice chips ok. LR 200 mls/hr Analgesia and antiemetics PRN. Lipase decreased today, 2000 today. Had incread pain after she was started on clear liquid diet yesterday and she was placed back on NPO, restarted clear liquid diet today . 2. UTI: UC mixed lesley , d/c rocephine, she received 4 days of iv antib, 3. Alcohol abuse: Denies wanting inpatient rehab. But wants outpatient rehab resources. Will give this and set up with human Services for there assistance in outpatient rehab. Supplement with thiamine, folic acid. CIWAA protocol with Ativan. Protonix IV daily. VTE prophylaxis: Lovenox. Dispo: D/c patient tomorrow if no new events
[2017-11-20] MEDS: HYDROmorphone 1 MG/ML Syringe IVPUSH PRN ×2 (18:04→21:18)
[2017-11-20] MEDS: Enoxaparin 40 MG/0.4 ML Syringe SUBCUT SCH (21:22)
[2017-11-21] MEDS: HYDROmorphone 1 MG/ML Syringe IVPUSH PRN ×8 (00:21→21:37)
[2017-11-21] MEDS: Lactated Ringers 1,000 ML IV SCH ×4 (05:49→21:41)
[2017-11-21 06:06] LABS: CHLORIDE,CL 99 mmol/L (98-107); SODIUM,NA 133 mmol/L (136-145)
[2017-11-21] MEDS: Pantoprazole 40 MG Vial IVPUSH SCH (08:45)
[2017-11-21] MEDS: Lisinopril 5 MG Tab PO SCH (08:46)
[2017-11-21] MEDS: Thiamine 200 MG/2 ML MDV IV SCH (08:48)
[2017-11-21] MEDS: Folic Acid 50 MG/10 ML MDV SUBCUT SCH (08:52)
[2017-11-21] MEDS ORDERED: Magnesium Sulfate/Water 4 GM in Premix Bag 1 BAG IV ONE (11:06)
--- NOTE | 2017-11-21 12:43 | PCM.PN ---
- General Info Date of Service: 11/21/17 - Review of Systems Systems Review Comment:: reports abdominal pain, slow to improve - Patient Data Vitals - Most Recent: Last Vital Signs Temp 36.8 C 11/21/17 12:00 Pulse 96 11/21/17 12:00 Resp 18 11/21/17 12:00 BP 165/108 H 11/21/17 12:00 Pulse Ox 98 11/21/17 12:00 Weight - Most Recent: 77.4 kg I&O - Last 24 Hours: Intake & Output 11/20/17 11/21/17 11/21/17 22:59 06:59 14:59 Intake Total 3248 1250 Output Total 1020 1800 Balance 2228 -550 Lab Results Last 24 Hours: Laboratory Results - last 24 hr 11/21/17 11/21/17 Range/Units 05:10 05:10 WBC 7.10 (4.0-11.0) K/uL RBC 3.61 L (4.30-5.90) M/uL Hgb 11.4 L (12.0-16.0) g/dL Hct 34.2 L (36.0-46.0) % MCV 94.7 (80.0-98.0) fL MCH 31.6 (27.0-32.0) pg MCHC 33.3 (31.0-37.0) g/dL RDW Std Deviation 45.3 (28.0-62.0) fl RDW Coeff of [place] 13 (11.0-15.0) % Plt Count 262 (150-400) K/uL MPV 8.80 (7.40-12.00) fL Nucleated RBC % 0.0 /100WBC Nucleated RBCs # 0 K/uL Sodium 133 L (136-145) mmol/L Potassium 4.4 (3.5-5.1) mmol/L Chloride 99 (98-107) mmol/L Carbon Dioxide 22.0 (21.0-32.0) mmol/L BUN 1 L (7.0-18.0) mg/dL Creatinine 0.5 L (0.6-1.0) mg/dL Est Cr Clr Drug Dosing 140.78 mL/min Estimated GFR (MDRD) > 60.0 ml/min Glucose 78 (74-106) mg/dL Calcium 8.2 L (8.5-10.1) mg/dL Phosphorus 3.3 (2.6-4.7) mg/dL Magnesium 1.3 L (1.5-2.0) mg/dL Total Bilirubin 0.8 (0.2-1.0) mg/dL AST 27 (15-37) IU/L ALT 20 (14-63) IU/L Alkaline Phosphatase 118 H (46-116) U/L Total Protein 6.2 L (6.4-8.2) g/dL Albumin 2.7 L (3.4-5.0) g/dL Globulin 3.5 (2.0-3.5) g/dL Albumin/Globulin Ratio 0.8 L (1.3-2.8) Sky Results Last 24 Hours: Microbiology 11/17/17 19:35 Urine Culture - Final Urine, Clean Catch MIXED DAVID 10,000-100,000 CFU/ML Med Orders - Current: Current Medications Albuterol/Ipratropium (Duoneb 3.0-0.5 Mg/3 Ml) 3 ml NEB Q4HRRT PRN PRN Reason: Shortness Of Breath/wheezing Enoxaparin Sodium (Lovenox) 40 mg SUBCUT Q24H [facility] Last Admin: 11/20/17 21:22 Dose: 40 mg Folic Acid (Folic Acid) 1 mg SUBCUT DAILY [facility] Last Admin: 11/21/17 08:52 Dose: 1 mg Hydromorphone HCl (Dilaudid) 1 mg IVPUSH Q3H PRN PRN Reason: Pain Last Admin: 11/21/17 12:31 Dose: 1 mg Lactated Ringer's (Ringers, Lactated) 1,000 mls @ 200 mls/hr IV ASDIRECTED [facility] Last Admin: 11/21/17 10:34 Dose: 200 mls/hr Magnesium Sulfate 4 gm/ Premix 100 mls @ 50 mls/hr IV ONETIME ONE Stop: 11/21/17 13:05 Last Admin: 11/21/17 11:44 Dose: 50 mls/hr Lisinopril (Prinivil) 5 mg PO DAILY [facility] Last Admin: 11/21/17 08:46 Dose: 5 mg Lorazepam (Ativan) 0 mg IVPUSH Q4H PRN; Protocol PRN Reason: CIWAA Last Admin: 11/19/17 19:55 Dose: 1 mg Ondansetron HCl (Zofran) 4 mg IVPUSH Q4H PRN PRN Reason: Nausea Last Admin: 11/19/17 23:51 Dose: 4 mg Pantoprazole Sodium (Protonix Iv) 40 mg IVPUSH Q24H [facility] Last Admin: 11/21/17 08:45 Dose: 40 mg Sodium Chloride (Saline Flush) 10 ml FLUSH ASDIRECTED PRN PRN Reason: Keep Vein Open Sodium Chloride (Saline Flush) 2.5 ml FLUSH ASDIRECTED PRN PRN Reason: Keep Vein Open Thiamine HCl (Vitamin B-1) 100 mg IV DAILY [facility] Last Admin: 11/21/17 08:48 Dose: 100 mg Discontinued Medications Calcium Carbonate/Glycine (Tums) 1,000 mg PO ONETIME ONE Stop: 11/19/17 08:05 Last Admin: 11/19/17 08:55 Dose: 1,000 mg Hydromorphone HCl (Dilaudid) 0.5 mg IV ONETIME ONE Stop: 11/17/17 19:50 Last Admin: 11/17/17 20:27 Dose: 0.5 mg Hydromorphone HCl (Dilaudid) 0.5 mg IVPUSH Q2H PRN PRN Reason: Pain (severe 7-10) Last Admin: 11/18/17 05:43 Dose: 0.5 mg Hydromorphone HCl (Dilaudid) 0.5 mg IVPUSH Q2H PRN PRN Reason: Pain (severe 7-10) Last Admin: 11/18/17 18:02 Dose: 0.5 mg Hydromorphone HCl (Dilaudid) 1 mg IVPUSH Q3H PRN PRN Reason: Pain Last Admin: 11/19/17 08:41 Dose: 1 mg Hydromorphone HCl (Dilaudid) 1 mg IVPUSH Q2H PRN PRN Reason: Pain Last Admin: 11/19/17 15:22 Dose: 1 mg Hydromorphone HCl (Dilaudid) 2 mg IVPUSH Q4H PRN PRN Reason: Pain Last Admin: 11/19/17 17:35 Dose: 2 mg Hydromorphone HCl (Dilaudid) 2 mg IVPUSH Q3H PRN PRN Reason: Pain Last Admin: 11/20/17 15:04 Dose: 2 mg Sodium Chloride (Normal Saline) 1,000 mls @ 999 mls/hr IV STAT ONE Stop: 11/17/17 19:17 Last Admin: 11/17/17 18:38 Dose: 999 mls/hr Lactated Ringer's (Ringers, Lactated) 1,000 mls @ 999 mls/hr IV .BOLUS ONE Stop: 11/17/17 21:53 Last Admin: 11/17/17 21:06 Dose: 999 mls/hr Lactated Ringer's (Ringers, Lactated) 1,000 mls @ 200 mls/hr IV ASDIRECTED [facility] Last Admin: 11/18/17 03:37 Dose: 200 mls/hr Potassium Chloride/Sodium Chloride (Normal Saline With 40 Meq Kcl) 1,000 mls @ 150 mls/hr IV ASDIRECTED [facility] Stop: 11/18/17 14:54 Last Admin: 11/18/17 08:43 Dose: 150 mls/hr Potassium Chloride/Dextrose/Sod Cl (D5 1/2 Ns W/ 40 Meq/L Kcl) 1,000 mls @ 9, 999 mls/hr IV ASDIRECTED [facility] Ceftriaxone Sodium/Dextrose 1 (gm/ Premix) 50 mls @ 100 mls/hr IV Q24H [facility] Ceftriaxone Sodium 1 gm/ (Sodium Chloride) 50 mls @ 100 mls/hr IV Q24H [facility] Ceftriaxone Sodium 1 gm/ (Sodium Chloride) 50 mls @ 100 mls/hr IV Q24H [facility] Last Admin: 11/20/17 11:24 Dose: 100 mls/hr Magnesium Sulfate 4 gm/ Premix 100 mls @ 50 mls/hr IV ONETIME ONE Stop: 11/18/17 15:43 Last Admin: 11/18/17 14:25 Dose: 50 mls/hr Potassium Chloride/Sodium Chloride (Normal Saline With 40 Meq Kcl) 1,000 mls @ 150 mls/hr IV Q7H [facility] Last Admin: 11/19/17 10:40 Dose: Not Given Magnesium Sulfate 2 gm/ Premix 50 mls @ 50 mls/hr IV ONETIME ONE Stop: 11/20/17 09:59 Last Admin: 11/20/17 09:22 Dose: 50 mls/hr Ketorolac Tromethamine (Toradol) 30 mg IVPUSH ONETIME ONE Stop: 11/17/17 18:41 Last Admin: 11/17/17 19:02 Dose: 30 mg Morphine Sulfate (Morphine) 2 mg IVPUSH Q2H PRN PRN Reason: Pain (severe 7-10) Stop: 11/18/17 20:55 Ondansetron HCl (Zofran) 8 mg IVPUSH ONETIME ONE Stop: 11/17/17 18:37 Last Admin: 11/17/17 18:40 Dose: 8 mg Ondansetron HCl (Zofran) 4 mg IVPUSH ONETIME ONE Stop: 11/17/17 20:54 Last Admin: 11/17/17 21:05 Dose: 4 mg Potassium Chloride (Klor-Con M20) 40 meq PO ONETIME ONE Stop: 11/18/17 09:23 Last Admin: 11/18/17 10:16 Dose: 40 meq - Exam General: Alert, Oriented Lungs: Clear to Auscultation, Normal Respiratory Effort Cardiovascular: Regular Rate, Regular Rhythm GI/Abdominal Exam: Normal Bowel Sounds, Soft, No Distention, No Mass Extremities: Normal Inspection, Non-Tender, No Pedal Edema Skin: Warm, Dry, Intact Neurological: No New Focal Deficit, Normal Gait - Problem List Review Problem List Initiated/Reviewed/Updated: Yes - My Orders Last 24 Hours: My Active Orders 11/21/17 11:06 Magnesium Sulfate/Water [Magnesium Sulfate 4 GM in Water 100 ML] 4 gm Premix Bag 1 bag IV ONETIME - Plan Plan:: 32 yo female admitted for ETOH pancreatitis. Will continue IV fluids, prn dilaudid for pain control. She currently is on a clear liquid diet.
[2017-11-21] MEDS: Enoxaparin 40 MG/0.4 ML Syringe SUBCUT SCH (21:39)
[2017-11-22] MEDS: HYDROmorphone 1 MG/ML Syringe IVPUSH PRN ×2 (00:46→03:58)
[2017-11-22] MEDS: Lactated Ringers 1,000 ML IV SCH (03:53)
[2017-11-22 06:43] LABS: CHLORIDE,CL 102 mmol/L (98-107); SODIUM,NA 135 mmol/L (136-145)
[2017-11-22] MEDS ORDERED: oxyCODONE 5 MG Tab PO PRN (07:18)
--- NOTE | 2017-11-22 08:18 | PCM.DCSUM1 ---
Discharge Summary - Hospital Course Brief History: This 32 year old female with pmh of alcoholic pancreatitis presented to the ED last night with worsening abdominal pain. She was recently admitted 11/12 and discharged on 11/14 for pancreatitis. She reports she did take pain medication and drank a small about of vodak daily, 2-3 drinks since discharge. She reports epigastric pain which radiates to the back with associated nausea and she wasn't able to keep any fluids down. She denies fevers , chills, urinary symptoms or lower abdominal pain. She denies black or bloody BMs and no coffee ground emesis or cara blood in emesis. She denies tobacco use or recreational drug use. In the ED No leukocytosis noted. Amylase 218 and lipase 4808. Ua revealed + bacteria with 2-4 WBCs. HCG negative. ETOH 37. BPs mildly elevated 140-150s/90s. She was given pain medication and IVFs. She was admitted for alcoholic pancreatitis. Abd/pelvis CT from 11/12/17 revealed acute pancreatitis no abscess, mild gallbladder distention with calculi or biliary enlargement. Possible cystic area within pancreatic head which is just over 1 cm in max dimension. - Discharge Data Discharge Date: 11/22/17 Discharge Disposition: Home, Self-Care 01 Condition: Good - Discharge Diagnosis/Problem(s) (1) Acute on chronic pancreatitis SNOMED Code(s): 915484527 ICD Code: K85.90 - ACUTE PANCREATITIS WITHOUT NECROSIS OR INFECTION, UNSP; K86.1 - OTHER CHRONIC PANCREATITIS Status: Acute (2) UTI (urinary tract infection) SNOMED Code(s): 04175898 ICD Code: N39.0 - URINARY TRACT INFECTION, SITE NOT SPECIFIED Status: Acute Qualifiers: Urinary tract infection type: acute cystitis Hematuria presence: without hematuria Qualified Code(s): N30.00 - Acute cystitis without hematuria (3) Alcohol abuse SNOMED Code(s): 47210558 ICD Code: F10.10 - ALCOHOL ABUSE, UNCOMPLICATED Status: Chronic - Patient Summary/Data Consults: Consultations 11/17/17 20:53 Consult to Case Management [CONS] Routine 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 Encourage no alcohol consumption at all. - Discharge Plan Prescriptions/Med Rec: Acetaminophen/oxyCODONE [Percocet 325-5 MG] 1 each PO Q4H PRN #10 tab PRN Reason: moderate to severe pain Lisinopril [Prinivil] 5 mg PO DAILY #30 tablet Home Medications: Home Meds Acetaminophen/oxyCODONE [Percocet 325-5 MG] 1 each PO Q4H PRN #10 tab 11/22/17 [ Rx] Lisinopril [Prinivil] 5 mg PO DAILY #30 tablet 11/22/17 [Rx] Patient Handouts: Acetaminophen; Oxycodone tablets, Acute Pancreatitis, Easy-to -Read, Lisinopril tablets Referrals: Cirilo Moses MD [Resident] - 11/30/17 3:30 pm - Discharge Summary/Plan Comment DC Time >30 min.: No Discharge Summary/Plan Comment: Discharge Diagnoses Acute on chronic pancreatitis Alcohol abuse Gisel was admitted and treated with IVF resuscitation, analgesia and bowel rest. She slowly improved. She tolerated regular diet last evening and today is feeling better and is requesting discharge home. Pain has improved, but continues slightly. She is tearful and "just ready to leave the hospital". She reports she know she needs to stop drinking and again this was encouraged along with outpatient rehabilitation. She reports she does not want inpatient rehab, but will take outpatient resources for sobriety assistance. She will be given resources including [facility] services, [facility] and meetings. She will be given Percocet 5/325 mg 1 tab every 4 hours as needed for pain #10 tabs no refills. She is to return to the ED or clinic if concerns should arise. Follow up with PCP 1 week. Continue Low fat diet. - General Info Date of Service: 11/22/17 Admission Dx/Problem (Free Text: Admission Diagnosis/Problem Admission Diagnosis/Problem Pancreatitis Subjective Update: Tearful, reports she is just ready to go home. Denies N/V chest pain or dyspnea. Intermittent back pain and epigastric pain. Not worsened with eating. But tolerable and asking for discharge home. Functional Status: Reports: Pain Controlled, Tolerating Diet, Ambulating, Urinating - Review of Systems General: Reports: No Symptoms. Denies: Fever, Weakness, Fatigue HEENT: Reports: No Symptoms. Denies: Sore Throat Pulmonary: Reports: No Symptoms. Denies: Shortness of Breath Cardiovascular: Reports: No Symptoms. Denies: Chest Pain Gastrointestinal: Reports: Abdominal Pain (epigastric), Flatus. Denies: Constipation, Diarrhea, Nausea, Vomiting Genitourinary: Reports: No Symptoms. Denies: Dysuria, Frequency, Burning Musculoskeletal: Reports: No Symptoms Skin: Reports: No Symptoms Neurological: Reports: No Symptoms Psychiatric: Reports: No Symptoms - Patient Data Vitals - Most Recent: Last Vital Signs Temp 97.6 F 11/22/17 04:00 Pulse 82 11/22/17 04:00 Resp 18 11/22/17 04:00 BP 164/95 H 11/22/17 04:00 Pulse Ox 100 11/22/17 04:00 Weight - Most Recent: 77.4 kg I&O - Last 24 hours: Intake & Output 11/21/17 11/22/17 11/22/17 22:59 06:59 14:59 Intake Total 3539 1100 Output Total 1850 700 Balance 1689 400 Lab Results - Last 24 hrs: Laboratory Results - last 24 hr 11/22/17 Range/Units 05:30 Sodium 135 L (136-145) mmol/L Potassium 4.4 (3.5-5.1) mmol/L Chloride 102 (98-107) mmol/L Carbon Dioxide 22.5 (21.0-32.0) mmol/L BUN 3 L (7.0-18.0) mg/dL Creatinine 0.6 (0.6-1.0) mg/dL Est Cr Clr Drug Dosing 117.31 mL/min Estimated GFR (MDRD) > 60.0 ml/min Glucose 92 (74-106) mg/dL Calcium 8.2 L (8.5-10.1) mg/dL Total Bilirubin 0.5 (0.2-1.0) mg/dL AST 22 (15-37) IU/L ALT 17 (14-63) IU/L Alkaline Phosphatase 91 (46-116) U/L Total Protein 5.7 L (6.4-8.2) g/dL Albumin 2.5 L (3.4-5.0) g/dL Globulin 3.2 (2.0-3.5) g/dL Albumin/Globulin Ratio 0.8 L (1.3-2.8) Med Orders - Current: Current Medications Albuterol/Ipratropium (Duoneb 3.0-0.5 Mg/3 Ml) 3 ml NEB Q4HRRT PRN PRN Reason: Shortness Of Breath/wheezing Enoxaparin Sodium (Lovenox) 40 mg SUBCUT Q24H [facility] Last Admin: 11/21/17 21:39 Dose: 40 mg Folic Acid (Folic Acid) 1 mg SUBCUT DAILY [facility] Last Admin: 11/21/17 08:52 Dose: 1 mg Lactated Ringer's (Ringers, Lactated) 1,000 mls @ 200 mls/hr IV ASDIRECTED [facility] Last Admin: 11/22/17 03:53 Dose: 200 mls/hr Lisinopril (Prinivil) 5 mg PO DAILY [facility] Last Admin: 11/21/17 08:46 Dose: 5 mg Lorazepam (Ativan) 0 mg IVPUSH Q4H PRN; Protocol PRN Reason: CIWAA Last Admin: 11/19/17 19:55 Dose: 1 mg Ondansetron HCl (Zofran) 4 mg IVPUSH Q4H PRN PRN Reason: Nausea Last Admin: 11/19/17 23:51 Dose: 4 mg Oxycodone HCl (Oxycodone) 5 mg PO Q4H PRN PRN Reason: Pain Pantoprazole Sodium (Protonix Iv) 40 mg IVPUSH Q24H [facility] Last Admin: 11/21/17 08:45 Dose: 40 mg Sodium Chloride (Saline Flush) 10 ml FLUSH ASDIRECTED PRN PRN Reason: Keep Vein Open Sodium Chloride (Saline Flush) 2.5 ml FLUSH ASDIRECTED PRN PRN Reason: Keep Vein Open Thiamine HCl (Vitamin B-1) 100 mg IV DAILY [facility] Last Admin: 11/21/17 08:48 Dose: 100 mg Discontinued Medications Calcium Carbonate/Glycine (Tums) 1,000 mg PO ONETIME ONE Stop: 11/19/17 08:05 Last Admin: 11/19/17 08:55 Dose: 1,000 mg Hydromorphone HCl (Dilaudid) 0.5 mg IV ONETIME ONE Stop: 11/17/17 19:50 Last Admin: 11/17/17 20:27 Dose: 0.5 mg Hydromorphone HCl (Dilaudid) 0.5 mg IVPUSH Q2H PRN PRN Reason: Pain (severe 7-10) Last Admin: 11/18/17 05:43 Dose: 0.5 mg Hydromorphone HCl (Dilaudid) 0.5 mg IVPUSH Q2H PRN PRN Reason: Pain (severe 7-10) Last Admin: 11/18/17 18:02 Dose: 0.5 mg Hydromorphone HCl (Dilaudid) 1 mg IVPUSH Q3H PRN PRN Reason: Pain Last Admin: 11/19/17 08:41 Dose: 1 mg Hydromorphone HCl (Dilaudid) 1 mg IVPUSH Q2H PRN PRN Reason: Pain Last Admin: 11/19/17 15:22 Dose: 1 mg Hydromorphone HCl (Dilaudid) 2 mg IVPUSH Q4H PRN PRN Reason: Pain Last Admin: 11/19/17 17:35 Dose: 2 mg Hydromorphone HCl (Dilaudid) 2 mg IVPUSH Q3H PRN PRN Reason: Pain Last Admin: 11/20/17 15:04 Dose: 2 mg Hydromorphone HCl (Dilaudid) 1 mg IVPUSH Q3H PRN PRN Reason: Pain Last Admin: 11/22/17 03:58 Dose: 1 mg Sodium Chloride (Normal Saline) 1,000 mls @ 999 mls/hr IV STAT ONE Stop: 11/17/17 19:17 Last Admin: 11/17/17 18:38 Dose: 999 mls/hr Lactated Ringer's (Ringers, Lactated) 1,000 mls @ 999 mls/hr IV .BOLUS ONE Stop: 11/17/17 21:53 Last Admin: 11/17/17 21:06 Dose: 999 mls/hr Lactated Ringer's (Ringers, Lactated) 1,000 mls @ 200 mls/hr IV ASDIRECTED [facility] Last Admin: 11/18/17 03:37 Dose: 200 mls/hr Potassium Chloride/Sodium Chloride (Normal Saline With 40 Meq Kcl) 1,000 mls @ 150 mls/hr IV ASDIRECTED [facility] Stop: 11/18/17 14:54 Last Admin: 11/18/17 08:43 Dose: 150 mls/hr Potassium Chloride/Dextrose/Sod Cl (D5 1/2 Ns W/ 40 Meq/L Kcl) 1,000 mls @ 9, 999 mls/hr IV ASDIRECTED [facility] Ceftriaxone Sodium/Dextrose 1 (gm/ Premix) 50 mls @ 100 mls/hr IV Q24H [facility] Ceftriaxone Sodium 1 gm/ (Sodium Chloride) 50 mls @ 100 mls/hr IV Q24H [facility] Ceftriaxone Sodium 1 gm/ (Sodium Chloride) 50 mls @ 100 mls/hr IV Q24H [facility] Last Admin: 11/20/17 11:24 Dose: 100 mls/hr Magnesium Sulfate 4 gm/ Premix 100 mls @ 50 mls/hr IV ONETIME ONE Stop: 11/18/17 15:43 Last Admin: 11/18/17 14:25 Dose: 50 mls/hr Potassium Chloride/Sodium Chloride (Normal Saline With 40 Meq Kcl) 1,000 mls @ 150 mls/hr IV Q7H [facility] Last Admin: 11/19/17 10:40 Dose: Not Given Magnesium Sulfate 2 gm/ Premix 50 mls @ 50 mls/hr IV ONETIME ONE Stop: 11/20/17 09:59 Last Admin: 11/20/17 09:22 Dose: 50 mls/hr Magnesium Sulfate 4 gm/ Premix 100 mls @ 50 mls/hr IV ONETIME ONE Stop: 11/21/17 13:05 Last Admin: 11/21/17 11:44 Dose: 50 mls/hr Ketorolac Tromethamine (Toradol) 30 mg IVPUSH ONETIME ONE Stop: 11/17/17 18:41 Last Admin: 11/17/17 19:02 Dose: 30 mg Morphine Sulfate (Morphine) 2 mg IVPUSH Q2H PRN PRN Reason: Pain (severe 7-10) Stop: 11/18/17 20:55 Ondansetron HCl (Zofran) 8 mg IVPUSH ONETIME ONE Stop: 11/17/17 18:37 Last Admin: 11/17/17 18:40 Dose: 8 mg Ondansetron HCl (Zofran) 4 mg IVPUSH ONETIME ONE Stop: 11/17/17 20:54 Last Admin: 11/17/17 21:05 Dose: 4 mg Potassium Chloride (Klor-Con M20) 40 meq PO ONETIME ONE Stop: 11/18/17 09:23 Last Admin: 11/18/17 10:16 Dose: 40 meq - Exam General: Reports: Alert, Oriented Lungs: Reports: Clear to Auscultation, Normal Respiratory Effort Cardiovascular: Reports: Regular Rate, Regular Rhythm GI/Abdominal Exam: Normal Bowel Sounds, Soft, No Organomegaly, No Distention, No Abnormal Bruit, No Mass, Pelvis Stable, Tender (epigastric region, reports improved.) Neurological: Reports: No New Focal Deficit Psy/Mental Status: Reports: Alert, Normal Affect, Normal Mood
[2017-11-22] MEDS: Lisinopril 5 MG Tab PO SCH (08:57)
[2017-11-22] MEDS: Folic Acid 50 MG/10 ML MDV SUBCUT SCH (08:57)
[2017-11-22] MEDS: Pantoprazole 40 MG Vial IVPUSH SCH (08:58)
[2017-11-22] MEDS: Thiamine 200 MG/2 ML MDV IV SCH (08:58)
== END 2017-11-22 09:50 | disposition home or self-care (01) | DRG 439 ==
LOC: MW.ED 18:06 → MW.MS 20:18
PROVIDERS: ADMIT Internal Medicine; ATTEND Internal Medicine
DX: K85.20 Alcohol induced acute pancreatitis without necrosis or infection (principal); N30.00 Acute cystitis without hematuria; K86.1 Other chronic pancreatitis; F10.10 Alcohol abuse, uncomplicated; Z79.899 Other long term (current) drug therapy
CPT/HCPCS: 36415; 80053; 80305; 81001; 81025; 82150; 83690; 83735; 84100; 85025; 85027; 87086; 96361; 96374; 96375; 99285-25; A9270-GY; C9113; G0480; J0696; J1170; J1650; J1885; J2060; J2405; J3411; J3475; J3480; J7040; J7050; J7120

== ENCOUNTER 2017-11-22 22:13 | Emergency (ER) | payer MEDICAID ==
--- NOTE | 2017-11-22 22:25 | EDM.PDOC ---
ED HPI GENERAL MEDICAL PROBLEM - General Stated Complaint: STOMACH PAIN Time Seen by Provider: 11/22/17 22:24 Source of Information: Reports: Patient - History of Present Illness INITIAL COMMENTS - FREE TEXT/NARRATIVE: HISTORY AND PHYSICAL: History of present illness: 32-year-old female presenting to emergency department with chief complaint of abdominal pain with recent hospitalization for pancreatitis. Patient states he was discharged from the ICU today for which she had been hospitalized for pancreatitis. States that she did somewhat encouraged him to release her from the hospital as she has been there for a significant period of time. States that he did give her some oxycodone at discharge for pain control. Throughout the day today she has been unable to control her pain and states that the oxycodone has not been working. She denies any fevers, chills, diarrhea. She has had some mild nausea. States that she has mid abdominal pain that radiates into the back 8 out of 10. -CBC and CMP were unremarkable. Lipase was elevated at 19 43 this is improved from 11/20 was found to be 2003. CT abdomen and pelvis revealed a slight decrease in peripancreatic fat stranding consistent with pancreatitis. There was also a persistent 11 mm fluid collection in pancreatic head was seen on previous CT on 11/12/17. - Patient was given 1 mg IV Dilaudid which relieved her pain. I did talk to hospitalist Dr. Isaacs about this patient briefly and told him my plan was to repeat labs and in less they were any new significant findings I would try to get her pain controlled here and discharge with new pain medication. He was in agreement. Review of systems: As per history of present illness and below otherwise all systems reviewed and negative. Past medical history: As per history of present illness and as reviewed below otherwise noncontributory. Surgical history: As per history of present illness and as reviewed below otherwise noncontributory. Social history: No reported history of drug or alcohol abuse. Family history: As per history of present illness and as reviewed below otherwise noncontributory. Physical exam: HEENT: Atraumatic, normocephalic, pupils reactive, negative for conjunctival pallor or scleral icterus, mucous membranes moist, throat clear, neck supple, nontender, trachea midline. Lungs: Clear to auscultation, breath sounds equal bilaterally, chest nontender. Heart: S1S2, regular, negative for clicks, rubs, or JVD. Abdomen: Soft, tender to palpation throughout but mostly localized to epigastric area radiating to the back. Negative for masses or hepatosplenomegaly. Negative for costovertebral tenderness. Pelvis: Stable nontender. Genitourinary: Deferred. Rectal: Deferred. Extremities: Atraumatic, negative for cords or calf pain. Neurovascular unremarkable. Neuro: Awake, alert, oriented. Cranial nerves II through XII unremarkable. Cerebellum unremarkable. Motor and sensory unremarkable throughout. Exam nonfocal. Diagnostics: CBC, CMP, lipase, CT abdomen pelvis Therapeutics: 1 L normal saline, 1 mg Dilaudid IV 1, 2 mg Dilaudid PO x2 Impression: [Acute on chronic pancreatitis, ]Intractable abdominal pain Plan: See above H&P for further information. Patient's pain was controlled with 2 mg of oral Dilaudid. There was no new significant findings from her previous hospitalization and lipase and CT abdomen and pelvis was improved from previous. This is all communicated to the patient. As above I did talk to Dr. Isaacs hospitalist to agreed with plan to get patient's pain under control and have her follow-up with planned primary care physician appointment next week. Patient was discharged in good condition with instructions to follow-up with primary care physician appointment and a prescription for Dilaudid 2 mg by mouth every 6 hours #12 for pain control. She instructed to return the emergency department if she had any new or worsening symptoms. Abdomen Pain Score (Numeric/FACES): 8 - Related Data Allergies Allergy/AdvReac Type Severity Reaction Status Date / Time No Known Allergies Allergy Verified 11/22/17 22:32 Home Meds: Home Meds Acetaminophen/oxyCODONE [Percocet 325-5 MG] 1 each PO Q4H PRN #10 tab 11/22/17 [ Rx] Lisinopril [Prinivil] 5 mg PO DAILY #30 tablet 11/22/17 [Rx] Past Medical History - Past Health History Medical/Surgical History: Denies Medical/Surgical History HEENT History: Reports: None Cardiovascular History: Reports: None. Denies: CAD, High Cholesterol, Hypertension, [place] Respiratory History: Reports: None. Denies: COPD, PE Gastrointestinal History: Reports: Pancreatitis Genitourinary History: Reports: None. Denies: Chronic Renal Insuffiency [employer] History: Reports: Other (See Below) (elective termination of in September 2017) Musculoskeletal History: Reports: None Neurological History: Reports: None. Denies: CVA, TIA Psychiatric History: Reports: Addiction Other Psychiatric History: ETOH Endocrine/Metabolic History: Reports: None. Denies: Diabetes, Type II Hematologic History: Reports: None Immunologic History: Reports: None Oncologic (Cancer) History: Reports: None Dermatologic History: Reports: None - Infectious Disease History Infectious Disease History: Reports: Chicken Pox - Past Surgical History Head Surgeries/Procedures: Reports: None HEENT Surgical History: Reports: None Cardiovascular Surgical History: Reports: None Respiratory Surgical History: Reports: None GI Surgical History: Reports: None Female Surgical History: Reports: None Endocrine Surgical History: Reports: None Neurological Surgical History: Reports: None Musculoskeletal Surgical History: Reports: None Oncologic Surgical History: Reports: None Dermatological Surgical History: Reports: None Social & Family History - Family History Family Medical History: Noncontributory Cardiac: Reports: IA - Caffeine Use Caffeine Use: Reports: Coffee - Living Situation & Occupation Living situation: Reports: Single Occupation: Unemployed ED ROS GENERAL - Review of Systems Review Of Systems: See Below ED EXAM, GENERAL - Physical Exam Exam: See Below Course - Vital Signs Last Recorded V/S: Last Vital Signs Temp 97.5 F 11/22/17 22:30 Pulse 96 11/22/17 22:30 Resp 18 11/22/17 22:30 BP 147/104 H 11/22/17 22:30 Pulse Ox 98 11/22/17 22:30 - Orders/Labs/Meds Orders: Active Orders 24 hr Category Date Time Status Abdomen w Cont [CT] Stat Exams 11/22/17 23:27 Taken HYDROmorphone [Dilaudid] Med 11/23/17 02:38 Stat 2 mg PO NOW STA Medication Orders Hydromorphone HCl (Dilaudid) 2 mg PO NOW STA Stop: 11/23/17 02:39 Labs: Laboratory Tests 11/22/17 11/22/17 Range/Units 22:59 22:59 WBC 9.44 (4.0-11.0) K/uL RBC 3.77 L (4.30-5.90) M/uL Hgb 12.2 (12.0-16.0) g/dL Hct 35.7 L (36.0-46.0) % MCV 94.7 (80.0-98.0) fL MCH 32.4 H (27.0-32.0) pg MCHC 34.2 (31.0-37.0) g/dL RDW Std Deviation 46.7 (28.0-62.0) fl RDW Coeff of [place] 14 (11.0-15.0) % Plt Count 226 (150-400) K/uL MPV 9.50 (7.40-12.00) fL Neut % (Auto) 61.9 (48.0-80.0) % Lymph % (Auto) 28.0 (16.0-40.0) % Ransom % (Auto) 8.7 (0.0-15.0) % Eos % (Auto) 1.2 (0.0-7.0) % Baso % (Auto) 0.2 (0.0-1.5) % Neut # (Auto) 5.9 H (1.4-5.7) K/uL Lymph # (Auto) 2.6 H (0.6-2.4) K/uL Ransom # (Auto) 0.8 (0.0-0.8) K/uL Eos # (Auto) 0.1 (0.0-0.7) K/uL Baso # (Auto) 0.0 (0.0-0.1) K/uL Nucleated RBC % 0.0 /100WBC Nucleated RBCs # 0 K/uL Sodium 134 L (136-145) mmol/L Potassium 4.4 (3.5-5.1) mmol/L Chloride 99 (98-107) mmol/L Carbon Dioxide 21.8 (21.0-32.0) mmol/L BUN 3 L (7.0-18.0) mg/dL Creatinine 0.5 L (0.6-1.0) mg/dL Est Cr Clr Drug Dosing TNP Estimated GFR (MDRD) > 60.0 ml/min Glucose 112 H (74-106) mg/dL Calcium 8.8 (8.5-10.1) mg/dL Total Bilirubin 0.5 (0.2-1.0) mg/dL AST 33 (15-37) IU/L ALT 20 (14-63) IU/L Alkaline Phosphatase 98 (46-116) U/L Total Protein 7.2 (6.4-8.2) g/dL Albumin 3.2 L (3.4-5.0) g/dL Globulin 4.0 H (2.0-3.5) g/dL Albumin/Globulin Ratio 0.8 L (1.3-2.8) Lipase 1943 H (73-393) U/L Meds: Medications Generic Name Dose Route Start Last Admin Trade Name Freq PRN Reason Stop Dose Admin Hydromorphone HCl 2 mg 11/23/17 02:38 Dilaudid PO 11/23/17 02:39 NOW STA Discontinued Medications Generic Name Dose Route Start Last Admin Trade Name Freq PRN Reason Stop Dose Admin Hydromorphone HCl 1 mg 11/22/17 23:03 11/22/17 23:15 Dilaudid IVPUSH 11/22/17 23:04 1 mg ONETIME ONE Administration Hydromorphone HCl 2 mg 11/23/17 01:07 11/23/17 01:34 Dilaudid PO 11/23/17 01:08 2 mg NOW STA Administration Lactated Ringer's 1,000 mls @ 999 mls/hr 11/22/17 23:03 11/22/17 23:16 Ringers, Lactated IV 11/23/17 00:03 999 mls/hr .BOLUS ONE Administration Iopamidol 100 ml 11/22/17 23:51 11/22/17 23:53 Isovue Multipack-370 (76%) IVPUSH 11/22/17 23:52 100 ml ONETIME STA Administration Departure - Departure Time of Disposition: 02:39 Disposition: Home, Self-Care 01 Condition: Good Clinical Impression: Intractable pain - Discharge Information Referrals: PCP,None [Primary Care Provider] - Additional Instructions: My general discharge The following information is given to patients seen in the emergency department who are being discharged to home. This information is to outline your options for follow-up care. We provide all patients seen in our emergency department with a follow-up referral. The need for follow-up, as well as the timing and circumstances, are variable depending upon the specifics of your emergency department visit. If you don't have a primary care physician on staff, we will provide you with a referral. We always advise you to contact your personal physician following an emergency department visit to inform them of the circumstance of the visit and for follow-up with them and/or the need for any referrals to a consulting specialist. The emergency department will also refer you to a specialist when appropriate. This referral assures that you have the opportunity for follow-up care with a specialist. All of these measure are taken in an effort to provide you with optimal care, which includes your follow-up. Under all circumstances we always encourage you to contact your private physician who remains a resource for coordinating your care. When calling for follow-up care, please make the office aware that this follow-up is from your recent emergency room visit. If for any reason you are refused follow-up, please contact the [facility] Emergency Department at and asked to speak to the emergency department charge nurse. [facility] Primary Care [address] [place] [id number] - My Orders Last 24 Hours: My Active Orders 11/22/17 23:27 Abdomen w Cont [CT] Stat 11/23/17 02:38 HYDROmorphone [Dilaudid] 2 mg PO NOW STA - Assessment/Plan Last 24 Hours: My Active Orders 11/22/17 23:27 Abdomen w Cont [CT] Stat 11/23/17 02:38 HYDROmorphone [Dilaudid] 2 mg PO NOW STA
[2017-11-22] MEDS ORDERED: HYDROmorphone 1 MG/ML Syringe IVPUSH ONE (23:03)
[2017-11-22] MEDS ORDERED: Lactated Ringers 1,000 ML IV ONE (23:03)
[2017-11-22 23:44] LABS: CHLORIDE,CL 99 mmol/L (98-107); SODIUM,NA 134 mmol/L (136-145)
[2017-11-22] MEDS ORDERED: Iopamidol 755 MG/ML 200 ML Multipack Bottle IVPUSH STA (23:51)
[2017-11-23] MEDS ORDERED: HYDROmorphone 2 MG Tab PO STA ×2 (01:07→02:38)
--- NOTE | 2017-11-23 16:42 | CT ---
EXAM DATE: 11/22/17 PATIENT'S AGE: 32 Patient: ALDEN BORGES Facility: [place], [place] Site . Site : 1985 Study: CT Abdomen WITH [id number]/28/2018 11:53:06 PM Ordering Physician: Abbe James Final Report: INDICATION: Nausea, vomiting, generalized abdominal pain TECHNIQUE: CT abdomen and pelvis acquired with 100 cc Isovue 370 IV contrast. COMPARISON: Nov 12 2017 FINDINGS: Lower chest: Unremarkable. Liver: Unremarkable. Spleen: Unremarkable. Pancreas: Slight decreased in fat stranding around the pancreatic head. There is an 11 millimeter fluid collection within the pancreatic head, relatively unchanged compared to the prior exam. The splenic vein is patent. There is homogeneous enhancement of the pancreas. Gallbladder and bile ducts: Unremarkable. Adrenal glands: Unremarkable. Kidneys: Unremarkable. GI tract: Unremarkable. Vascular structures: Unremarkable. Lymph nodes: Unremarkable. Pelvic Organs: Trace free fluid in the pelvis. Bones: Unremarkable for age. IMPRESSION: Slight decrease in peripancreatic fat stranding, consistent with pancreatitis. Persistent 11 mm fluid collection in the pancreatic head. This may represent a pancreatic cyst or phlegmon/early pseudocyst formation. Small amount of intraperitoneal free fluid. Please note that all CT scans at this facility use dose modulation, iterative reconstruction, and/or weight-based dosing when appropriate to reduce radiation dose to as low as reasonably achievable. Dictated by Meg Tirado MD @ Nov 23 2017 12:29AM (Electronic Signature) Report Signed by Proxy. [facility]ALS[facility]
== END 2017-11-23 03:05 | disposition home or self-care (01) ==
LOC: MW.ED 22:13
DX: K85.90 Acute pancreatitis without necrosis or infection, unspecified (principal); K86.1 Other chronic pancreatitis; Z79.899 Other long term (current) drug therapy
CPT/HCPCS: 36415; 74160; 80053; 83690; 85025; 96361; 96374; 99284; A9270; J1170; J7120; Q9967

== ENCOUNTER 2017-12-30 05:25 | Inpatient (IN) | payer MEDICAID ==
[2017-12-30] MEDS ORDERED: Ondansetron 4 MG/2 ML SDV IVPUSH ONE (05:56)
[2017-12-30] MEDS ORDERED: Sodium Chloride 0.9% 1,000 ML IV ONE ×2 (05:56→08:03)
[2017-12-30] MEDS ORDERED: Sodium Chloride 0.9% 2.5 ML Syringe FLUSH PRN ×2 (05:56)
[2017-12-30] MEDS ORDERED: Sodium Chloride 0.9% 10 ML Syringe FLUSH PRN (05:56)
[2017-12-30] MEDS ORDERED: HYDROmorphone 2 MG/ML SDV IVPUSH ONE ×2 (05:56→07:28)
[2017-12-30] MEDS ORDERED: HYDROmorphone 1 MG/ML Syringe IVPUSH ONE ×2 (06:02→07:33)
[2017-12-30] MEDS ORDERED: Pantoprazole 40 MG Vial IVPUSH ONE (06:04)
--- NOTE | 2017-12-30 06:04 | EDM.PDOC ---
ED HPI GENERAL MEDICAL PROBLEM - General Chief Complaint: Abdominal Pain Stated Complaint: ABDOMINAL PAIN Time Seen by Provider: 12/30/17 05:36 Source of Information: Reports: Patient History Limitations: Reports: No Limitations - History of Present Illness INITIAL COMMENTS - FREE TEXT/NARRATIVE: HISTORY AND PHYSICAL: History of present illness: 32-year-old female presenting to department with chief complaint of 2 days of upper abdominal pain with past medical history of pancreatitis. Patient states that yesterday she began to have some upper abdominal pain with associated nausea and vomiting. States that she vomited 3 times yesterday without any blood. Has had no bloody stool, dark tarry stools, or diarrhea. Does have a history of GERD but does not take medications for this. States she' s had pancreatitis in the past secondary to alcohol. States that she has not been drinking to excess recently. Current pain is 8 out of 10 and localized to her epigastric/upper abdomen. She currently denies any chest pain, palpitations , shortness of breath, syncopal episodes, or focal neurologic deficit. On 8 initial exam patient is acutely tender in epigastric region as well as right upper water and left upper quadrant. Abdomen is soft, nondistended, nonrigid, positive bowel sounds. Review of systems: As per history of present illness and below otherwise all systems reviewed and negative. Past medical history: As per history of present illness and as reviewed below otherwise noncontributory. Surgical history: As per history of present illness and as reviewed below otherwise noncontributory. Social history: No reported history of drug or alcohol abuse. Family history: As per history of present illness and as reviewed below otherwise noncontributory. Physical exam: HEENT: Atraumatic, normocephalic, pupils reactive, negative for conjunctival pallor or scleral icterus, mucous membranes moist, throat clear, neck supple, nontender, trachea midline. Lungs: Clear to auscultation, breath sounds equal bilaterally, chest nontender. Heart: S1S2, regular, negative for clicks, rubs, or JVD. Abdomen: Soft, nondistended, nontender. Negative for masses or hepatosplenomegaly. Negative for costovertebral tenderness. Pelvis: Stable nontender. Genitourinary: Deferred. Rectal: Deferred. Extremities: Atraumatic, negative for cords or calf pain. Neurovascular unremarkable. Neuro: Awake, alert, oriented. Cranial nerves II through XII unremarkable. Cerebellum unremarkable. Motor and sensory unremarkable throughout. Exam nonfocal. Diagnostics: CBC, CMP, UA/UC, hCG, lipase, EtOH, CT abdomen pelvis Therapeutics: 1 L normal saline 1, Zofran 8 mg IV 1, Dilaudid 1 mg IV 1, Protonix 80 mg IV 1, Impression: Pancretitis Plan: Patient had mild leukocytosis and elevated lipase consistent with pancreatitis which agent has had in the past. Did sign this patient over to Dr. Wellington at 07 100. We were waiting on the CT results. Definitive disposition and diagnosis as appropriate pending reevaluation and review of above. abdominal Pain Score (Numeric/FACES): 8 - Related Data Allergies Allergy/AdvReac Type Severity Reaction Status Date / Time No Known Allergies Allergy Verified 12/30/17 11:36 Home Meds: Home Meds Lisinopril [Prinivil] 5 mg PO DAILY #30 tablet 11/22/17 [Rx] Past Medical History - Past Health History Medical/Surgical History: Denies Medical/Surgical History HEENT History: Reports: None Cardiovascular History: Reports: None. Denies: CAD, High Cholesterol, Hypertension, [place] Respiratory History: Reports: None. Denies: COPD, PE Gastrointestinal History: Reports: Pancreatitis Genitourinary History: Reports: None. Denies: Chronic Renal Insuffiency [employer] L[employer]ING [employer]ER History: Reports: Other (See Below) (elective termination of in September 2017) Musculoskeletal History: Reports: None Neurological History: Reports: None. Denies: CVA, TIA Psychiatric History: Reports: Addiction Other Psychiatric History: ETOH Endocrine/Metabolic History: Reports: None. Denies: Diabetes, Type II Hematologic History: Reports: None Immunologic History: Reports: None Oncologic (Cancer) History: Reports: None Dermatologic History: Reports: None - Infectious Disease History Infectious Disease History: Reports: Chicken Pox - Past Surgical History Head Surgeries/Procedures: Reports: None HEENT Surgical History: Reports: None Cardiovascular Surgical History: Reports: None Respiratory Surgical History: Reports: None GI Surgical History: Reports: None Female Surgical History: Reports: None Endocrine Surgical History: Reports: None Neurological Surgical History: Reports: None Musculoskeletal Surgical History: Reports: None Oncologic Surgical History: Reports: None Dermatological Surgical History: Reports: None Social & Family History - Family History Family Medical History: Noncontributory Cardiac: Reports: PR - Caffeine Use Caffeine Use: Reports: Coffee - Living Situation & Occupation Living situation: Reports: Single Occupation: Unemployed ED ROS GENERAL - Review of Systems Review Of Systems: ROS reveals no pertinent complaints other than HPI. ED EXAM, GENERAL - Physical Exam Exam: See Below Course - Vital Signs Last Recorded V/S: Last Vital Signs Temp 97.2 F 12/30/17 16:00 Pulse 79 12/30/17 16:00 Resp 16 12/30/17 16:00 BP 137/91 H 12/30/17 16:00 Pulse Ox 98 12/30/17 16:00 - Orders/Labs/Meds Orders: Active Orders 24 hr Category Date Time Status Admission Status [Patient Status] [ADT] Stat ADT 12/30/17 08:03 Active CULTURE URINE [RM] Stat Lab 12/30/17 05:44 Received HCG QUALITATIVE,URINE [URCHEM] Stat Lab 12/30/17 05:44 Ordered UA W/MICROSCOPIC [URIN] Stat Lab 12/30/17 05:44 Ordered Sodium Chloride 0.9% [Saline Flush] Med 12/30/17 05:56 Active 10 ml FLUSH ASDIRECTED PRN Sodium Chloride 0.9% [Saline Flush] Med 12/30/17 05:56 Active 2.5 ml FLUSH ASDIRECTED PRN Sodium Chloride 0.9% [Saline Flush] Med 12/30/17 05:56 Active 2.5 ml FLUSH ASDIRECTED PRN Saline Lock Insert [OM.PC] Stat Oth 12/30/17 05:56 Ordered Medication Orders Enoxaparin Sodium (Lovenox) 40 mg SUBCUT Q24H [facility] Last Admin: 12/30/17 09:44 Dose: 40 mg Folic Acid (Folic Acid) 1 mg SUBCUT DAILY [facility] Last Admin: 12/30/17 09:48 Dose: 1 mg Hydromorphone HCl (Dilaudid) 0.5 mg IVPUSH Q2H PRN PRN Reason: Pain (severe 7-10) Last Admin: 12/30/17 17:26 Dose: 0.5 mg Admin: 12/30/17 14:44 Dose: 0.5 mg Admin: 12/30/17 12:47 Dose: 0.5 mg Admin: 12/30/17 09:48 Dose: 0.5 mg Sodium Chloride (Normal Saline) 1,000 mls @ 200 mls/hr IV ASDIRECTED [facility] Last Admin: 12/30/17 14:43 Dose: 200 mls/hr Infusion: 12/30/17 14:41 Dose: 200 mls/hr Admin: 12/30/17 09:41 Dose: 200 mls/hr Lorazepam (Ativan) 0 mg IVPUSH Q4H PRN; Protocol PRN Reason: Agitation Ondansetron HCl (Zofran) 4 mg IVPUSH Q4H PRN PRN Reason: Nausea Sodium Chloride (Saline Flush) 2.5 ml FLUSH ASDIRECTED PRN PRN Reason: Keep Vein Open Last Admin: 12/30/17 07:40 Dose: 2.5 ml Sodium Chloride (Saline Flush) 10 ml FLUSH ASDIRECTED PRN PRN Reason: Keep Vein Open Last Admin: 12/30/17 07:40 Dose: 10 ml Sodium Chloride (Saline Flush) 2.5 ml FLUSH ASDIRECTED PRN PRN Reason: Keep Vein Open Last Admin: 12/30/17 07:40 Dose: 2.5 ml Thiamine HCl (Vitamin B-1) 100 mg IV DAILY [facility] Last Admin: 12/30/17 09:47 Dose: 100 mg Labs: Laboratory Tests 12/30/17 12/30/17 12/30/17 Range/Units 05:44 05:44 05:50 WBC 11.32 H (4.0-11.0) K/uL RBC 4.59 (4.30-5.90) M/uL Hgb 14.0 (12.0-16.0) g/dL Hct 40.7 (36.0-46.0) % MCV 88.7 (80.0-98.0) fL MCH 30.5 (27.0-32.0) pg MCHC 34.4 (31.0-37.0) g/dL RDW Std Deviation 44.0 (28.0-62.0) fl RDW Coeff of [place] 14 (11.0-15.0) % Plt Count 373 (150-400) K/uL MPV 8.50 (7.40-12.00) fL Neut % (Auto) 57.9 (48.0-80.0) % Lymph % (Auto) 33.8 (16.0-40.0) % [place] % (Auto) 6.7 (0.0-15.0) % Eos % (Auto) 1.2 (0.0-7.0) % Baso % (Auto) 0.4 (0.0-1.5) % Neut # (Auto) 6.6 H (1.4-5.7) K/uL Lymph # (Auto) 3.8 H (0.6-2.4) K/uL [place] # (Auto) 0.8 (0.0-0.8) K/uL Eos # (Auto) 0.1 (0.0-0.7) K/uL Baso # (Auto) 0.0 (0.0-0.1) K/uL Nucleated RBC % 0.0 /100WBC Nucleated RBCs # 0 K/uL Sodium (136-145) mmol/L Potassium (3.5-5.1) mmol/L Chloride (98-107) mmol/L Carbon Dioxide (21.0-32.0) mmol/L BUN (7.0-18.0) mg/dL Creatinine (0.6-1.0) mg/dL Est Cr Clr Drug Dosing mL/min Estimated GFR (MDRD) ml/min Glucose (74-106) mg/dL Calcium (8.5-10.1) mg/dL Total Bilirubin (0.2-1.0) mg/dL AST (15-37) IU/L ALT (14-63) IU/L Alkaline Phosphatase (46-116) U/L Total Protein (6.4-8.2) g/dL Albumin (3.4-5.0) g/dL Globulin (2.0-3.5) g/dL Albumin/Globulin Ratio (1.3-2.8) Lipase (73-393) U/L Urine Color YELLOW Urine Appearance CLEAR Urine pH 6.5 (5.0-8.0) Ur Specific [place] 1.025 (1.001-1.035) Urine Protein 30 (NEGATIVE) mg/dL Urine Glucose (UA) NEGATIVE (NEGATIVE) mg/dL Urine Ketones NEGATIVE (NEGATIVE) mg/dL Urine Occult Blood NEGATIVE (NEGATIVE) Urine Nitrite NEGATIVE (NEGATIVE) Urine Bilirubin NEGATIVE (NEGATIVE) Urine Urobilinogen 0.2 (<2.0) EU/dL Ur Leukocyte Esterase NEGATIVE (NEGATIVE) Urine RBC 0-1 (0-2/HPF) Urine WBC 1-3 (0-5/HPF) Ur Epithelial Cells MODERATE (NONE-FEW) Urine Bacteria 1+ H (NEGATIVE) Urine Mucus LIGHT (NONE-MOD) Urine HCG, Qual NEGATIVE (NEGATIVE) Ethyl Alcohol mg/dL 12/30/17 Range/Units 05:50 WBC (4.0-11.0) K/uL RBC (4.30-5.90) M/uL Hgb (12.0-16.0) g/dL Hct (36.0-46.0) % MCV (80.0-98.0) fL MCH (27.0-32.0) pg MCHC (31.0-37.0) g/dL RDW Std Deviation (28.0-62.0) fl RDW Coeff of [place] (11.0-15.0) % Plt Count (150-400) K/uL MPV (7.40-12.00) fL Neut % (Auto) (48.0-80.0) % Lymph % (Auto) (16.0-40.0) % [place] % (Auto) (0.0-15.0) % Eos % (Auto) (0.0-7.0) % Baso % (Auto) (0.0-1.5) % Neut # (Auto) (1.4-5.7) K/uL Lymph # (Auto) (0.6-2.4) K/uL [place] # (Auto) (0.0-0.8) K/uL Eos # (Auto) (0.0-0.7) K/uL Baso # (Auto) (0.0-0.1) K/uL Nucleated RBC % /100WBC Nucleated RBCs # K/uL Sodium 134 L (136-145) mmol/L Potassium 3.9 (3.5-5.1) mmol/L Chloride 99 (98-107) mmol/L Carbon Dioxide 24.3 (21.0-32.0) mmol/L BUN 12 (7.0-18.0) mg/dL Creatinine 1.0 (0.6-1.0) mg/dL Est Cr Clr Drug Dosing 70.39 mL/min Estimated GFR (MDRD) > 60.0 ml/min Glucose 111 H (74-106) mg/dL Calcium 9.0 (8.5-10.1) mg/dL Total Bilirubin 0.6 (0.2-1.0) mg/dL AST 23 (15-37) IU/L ALT 22 (14-63) IU/L Alkaline Phosphatase 90 (46-116) U/L Total Protein 7.8 (6.4-8.2) g/dL Albumin 3.7 (3.4-5.0) g/dL Globulin 4.1 H (2.0-3.5) g/dL Albumin/Globulin Ratio 0.9 L (1.3-2.8) Lipase 3997 H (73-393) U/L Urine Color Urine Appearance Urine pH (5.0-8.0) Ur Specific [place] (1.001-1.035) Urine Protein (NEGATIVE) mg/dL Urine Glucose (UA) (NEGATIVE) mg/dL Urine Ketones (NEGATIVE) mg/dL Urine Occult Blood (NEGATIVE) Urine Nitrite (NEGATIVE) Urine Bilirubin (NEGATIVE) Urine Urobilinogen (<2.0) EU/dL Ur Leukocyte Esterase (NEGATIVE) Urine RBC (0-2/HPF) Urine WBC (0-5/HPF) Ur Epithelial Cells (NONE-FEW) Urine Bacteria (NEGATIVE) Urine Mucus (NONE-MOD) Urine HCG, Qual (NEGATIVE) Ethyl Alcohol <3 mg/dL Meds: Medications Generic Name Dose Route Start Last Admin Trade Name Freq PRN Reason Stop Dose Admin Enoxaparin Sodium 40 mg 12/30/17 09:00 12/30/17 09:44 Lovenox SUBCUT 40 mg Q24H CARLITOS Administration Folic Acid 1 mg 12/30/17 09:00 12/30/17 09:48 Folic Acid SUBCUT 1 mg DAILY CARLITOS Administration Hydromorphone HCl 0.5 mg 12/30/17 08:52 12/30/17 17:26 Dilaudid IVPUSH 0.5 mg Q2H PRN Administration Pain (severe 7-10) Sodium Chloride 1,000 mls @ 200 mls/hr 12/30/17 09:00 12/30/17 14:43 Normal Saline IV 200 mls/hr ASDIRECTED CARLITOS Administration Lorazepam 0 mg 12/30/17 08:56 Ativan IVPUSH Q4H PRN Agitation Protocol Ondansetron HCl 4 mg 12/30/17 08:52 Zofran IVPUSH Q4H PRN Nausea Sodium Chloride 2.5 ml 12/30/17 05:56 12/30/17 07:40 Saline Flush FLUSH 2.5 ml ASDIRECTED PRN Administration Keep Vein Open Sodium Chloride 10 ml 12/30/17 05:56 12/30/17 07:40 Saline Flush FLUSH 10 ml ASDIRECTED PRN Administration Keep Vein Open Sodium Chloride 2.5 ml 12/30/17 05:56 12/30/17 07:40 Saline Flush FLUSH 2.5 ml ASDIRECTED PRN Administration Keep Vein Open Thiamine HCl 100 mg 12/30/17 09:00 12/30/17 09:47 Vitamin B-1 IV 100 mg DAILY CARLITOS Administration Discontinued Medications Generic Name Dose Route Start Last Admin Trade Name Freq PRN Reason Stop Dose Admin Enalaprilat 1.25 mg 12/30/17 07:29 12/30/17 07:39 Vasotec Iv IVPUSH 12/30/17 07:30 1.25 mg ONETIME ONE Administration Hydromorphone HCl 1 mg 12/30/17 05:56 12/30/17 06:16 Dilaudid IVPUSH 12/30/17 05:57 Not Given ONETIME ONE Hydromorphone HCl 1 mg 12/30/17 06:02 12/30/17 06:10 Dilaudid IVPUSH 12/30/17 06:03 1 mg ONETIME ONE Administration Hydromorphone HCl 1 mg 12/30/17 07:33 12/30/17 07:39 Dilaudid IVPUSH 12/30/17 07:34 1 mg ONETIME ONE Administration Sodium Chloride 1,000 mls @ 999 mls/hr 12/30/17 05:56 12/30/17 06:03 Normal Saline IV 12/30/17 06:56 999 mls/hr .Bolus ONE Administration Sodium Chloride 1,000 mls @ 999 mls/hr 12/30/17 08:03 12/30/17 08:10 Normal Saline IV 12/30/17 09:03 999 mls/hr STAT ONE Administration Iopamidol 100 ml 12/30/17 06:52 12/30/17 06:53 Isovue Multipack-370 (76%) IVPUSH 12/30/17 06:53 100 ml ONETIME STA Administration Ondansetron HCl 4 mg 12/30/17 05:56 12/30/17 06:18 Zofran IVPUSH 12/30/17 05:57 4 mg ONETIME ONE Administration Pantoprazole Sodium 80 mg 12/30/17 06:04 12/30/17 06:11 Protonix Iv IVPUSH 12/30/17 06:05 80 mg .BOLUS ONE Administration Departure - Departure Time of Disposition: 07:00 Disposition: Still A Patient 30 Condition: Fair Clinical Impression: Pancreatitis Qualifiers: Chronicity: acute Pancreatitis type: alcohol induced Acute pancreatitis complication: unspecified Qualified Code(s): K85.20 - Alcohol induced acute pancreatitis without necrosis or infection - Discharge Information - My Orders Last 24 Hours: My Active Orders 12/30/17 05:44 CULTURE URINE [RM] Stat HCG QUALITATIVE,URINE [URCHEM] Stat UA W/MICROSCOPIC [URIN] Stat 12/30/17 05:56 Sodium Chloride 0.9% [Saline Flush] 10 ml FLUSH ASDIRECTED PRN Sodium Chloride 0.9% [Saline Flush] 2.5 ml FLUSH ASDIRECTED PRN Sodium Chloride 0.9% [Saline Flush] 2.5 ml FLUSH ASDIRECTED PRN Saline Lock Insert [OM.PC] Stat - Assessment/Plan Last 24 Hours: My Active Orders 12/30/17 05:44 CULTURE URINE [RM] Stat HCG QUALITATIVE,URINE [URCHEM] Stat UA W/MICROSCOPIC [URIN] Stat 12/30/17 05:56 Sodium Chloride 0.9% [Saline Flush] 10 ml FLUSH ASDIRECTED PRN Sodium Chloride 0.9% [Saline Flush] 2.5 ml FLUSH ASDIRECTED PRN Sodium Chloride 0.9% [Saline Flush] 2.5 ml FLUSH ASDIRECTED PRN Saline Lock Insert [OM.PC] Stat
[2017-12-30 06:25] LABS: CHLORIDE,CL 99 mmol/L (98-107); SODIUM,NA 134 mmol/L (136-145)
[2017-12-30] MEDS ORDERED: Iopamidol 755 MG/ML 500 ML Multipack Bottle IVPUSH STA (06:52)
[2017-12-30] MEDS ORDERED: Enalaprilat 1.25 MG/ML SDV IVPUSH ONE (07:29)
[2017-12-30] MEDS ORDERED: Ondansetron 4 MG/2 ML SDV IVPUSH PRN (08:52)
[2017-12-30] MEDS ORDERED: LORazepam 2 MG/ML SDV IVPUSH PRN (08:56)
--- NOTE | 2017-12-30 08:58 | PCM.HP ---
H&P History of Present Illness - General Date of Service: 12/30/17 Admit Problem/Dx: Admission Diagnosis/Problem Admission Diagnosis/Problem Pancreatitis - History of Present Illness Initial Comments - Free Text/Narative: 32 yo female with pmh of ETOH pancreatitis with last admission two months ago. She presents today with one day history of abdominal pain. She had a few drinks yesterday for the fourth of the December. She says she has cut back on her drinking. abdominal Pain Score (Numeric/FACES): 6 - Related Data Allergies/Adverse Reactions: Allergies Allergy/AdvReac Type Severity Reaction Status Date / Time No Known Allergies Allergy Verified 11/22/17 22:32 Home Medications: Home Meds Acetaminophen/oxyCODONE [Percocet 325-5 MG] 1 each PO Q4H PRN #10 tab 11/22/17 [ Rx] Lisinopril [Prinivil] 5 mg PO DAILY #30 tablet 11/22/17 [Rx] Past Medical History - Past Health History Medical/Surgical History: Denies Medical/Surgical History HEENT History: Reports: None Cardiovascular History: Reports: None. Denies: CAD, High Cholesterol, Hypertension, [place] Respiratory History: Reports: None. Denies: COPD, PE Gastrointestinal History: Reports: Pancreatitis Genitourinary History: Reports: None. 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 Denies: CVA, TIA Psychiatric History: Reports: Addiction Other Psychiatric History: ETOH Endocrine/Metabolic History: Reports: None. Denies: Diabetes, Type II Hematologic History: Reports: None Immunologic History: Reports: None Oncologic (Cancer) History: Reports: None Dermatologic History: Reports: None - Infectious Disease History Infectious Disease History: Reports: Chicken Pox - Past Surgical History Head Surgeries/Procedures: Reports: None HEENT Surgical History: Reports: None Cardiovascular Surgical History: Reports: None Respiratory Surgical History: Reports: None GI Surgical History: Reports: None Female Surgical History: Reports: None Endocrine Surgical History: Reports: None Neurological Surgical History: Reports: None Musculoskeletal Surgical History: Reports: None Oncologic Surgical History: Reports: None Dermatological Surgical History: Reports: None Social & Family History - Family History Family Medical History: Noncontributory Cardiac: Reports: SD - Tobacco Use Smoking Status *Q: Never Smoker Second Hand Smoke Exposure: No - Caffeine Use Caffeine Use: Reports: Coffee - Recreational Drug Use Recreational Drug Use: No - Living Situation & Occupation Living situation: Reports: Single Occupation: Unemployed H&P Review of Systems - Review of Systems: Review Of Systems: ROS reveals no pertinent complaints other than HPI. Exam - Exam Exam: See Below - Vital Signs Vital Signs: Last Vital Signs Temp 35.9 C 12/30/17 05:39 Pulse 82 12/30/17 08:12 Resp 18 12/30/17 08:12 BP 141/95 H 12/30/17 08:12 Pulse Ox 99 12/30/17 08:12 Weight: 74 kg - Exam General: Alert, Oriented HEENT: Mucosa Moist & [place] Lungs: Clear to Auscultation, Normal Respiratory Effort Cardiovascular: Regular Rate, Regular Rhythm GI/Abdominal Exam: Normal Bowel Sounds, Soft, Non-Tender, No Organomegaly Extremities: No Pedal Edema Skin: Warm, Dry, Intact - Patient Data Lab Results Last 24 hrs: Laboratory Results - last 24 hr 12/30/17 12/30/17 12/30/17 Range/Units 05:44 05:44 05:50 WBC 11.32 H (4.0-11.0) K/uL RBC 4.59 (4.30-5.90) M/uL Hgb 14.0 (12.0-16.0) g/dL Hct 40.7 (36.0-46.0) % MCV 88.7 (80.0-98.0) fL MCH 30.5 (27.0-32.0) pg MCHC 34.4 (31.0-37.0) g/dL RDW Std Deviation 44.0 (28.0-62.0) fl RDW Coeff of [place] 14 (11.0-15.0) % Plt Count 373 (150-400) K/uL MPV 8.50 (7.40-12.00) fL Neut % (Auto) 57.9 (48.0-80.0) % Lymph % (Auto) 33.8 (16.0-40.0) % [place] % (Auto) 6.7 (0.0-15.0) % Eos % (Auto) 1.2 (0.0-7.0) % Baso % (Auto) 0.4 (0.0-1.5) % Neut # (Auto) 6.6 H (1.4-5.7) K/uL Lymph # (Auto) 3.8 H (0.6-2.4) K/uL [place] # (Auto) 0.8 (0.0-0.8) K/uL Eos # (Auto) 0.1 (0.0-0.7) K/uL Baso # (Auto) 0.0 (0.0-0.1) K/uL Nucleated RBC % 0.0 /100WBC Nucleated RBCs # 0 K/uL Sodium (136-145) mmol/L Potassium (3.5-5.1) mmol/L Chloride (98-107) mmol/L Carbon Dioxide (21.0-32.0) mmol/L BUN (7.0-18.0) mg/dL Creatinine (0.6-1.0) mg/dL Est Cr Clr Drug Dosing mL/min Estimated GFR (MDRD) ml/min Glucose (74-106) mg/dL Calcium (8.5-10.1) mg/dL Total Bilirubin (0.2-1.0) mg/dL AST (15-37) IU/L ALT (14-63) IU/L Alkaline Phosphatase (46-116) U/L Total Protein (6.4-8.2) g/dL Albumin (3.4-5.0) g/dL Globulin (2.0-3.5) g/dL Albumin/Globulin Ratio (1.3-2.8) Lipase (73-393) U/L Urine Color YELLOW Urine Appearance CLEAR Urine pH 6.5 (5.0-8.0) Ur Specific [place] 1.025 (1.001-1.035) Urine Protein 30 (NEGATIVE) mg/dL Urine Glucose (UA) NEGATIVE (NEGATIVE) mg/dL Urine Ketones NEGATIVE (NEGATIVE) mg/dL Urine Occult Blood NEGATIVE (NEGATIVE) Urine Nitrite NEGATIVE (NEGATIVE) Urine Bilirubin NEGATIVE (NEGATIVE) Urine Urobilinogen 0.2 (<2.0) EU/dL Ur Leukocyte Esterase NEGATIVE (NEGATIVE) Urine RBC 0-1 (0-2/HPF) Urine WBC 1-3 (0-5/HPF) Ur Epithelial Cells MODERATE (NONE-FEW) Urine Bacteria 1+ H (NEGATIVE) Urine Mucus LIGHT (NONE-MOD) Urine HCG, Qual NEGATIVE (NEGATIVE) Ethyl Alcohol mg/dL 12/30/17 Range/Units 05:50 WBC (4.0-11.0) K/uL RBC (4.30-5.90) M/uL Hgb (12.0-16.0) g/dL Hct (36.0-46.0) % MCV (80.0-98.0) fL MCH (27.0-32.0) pg MCHC (31.0-37.0) g/dL RDW Std Deviation (28.0-62.0) fl RDW Coeff of [place] (11.0-15.0) % Plt Count (150-400) K/uL MPV (7.40-12.00) fL Neut % (Auto) (48.0-80.0) % Lymph % (Auto) (16.0-40.0) % [place] % (Auto) (0.0-15.0) % Eos % (Auto) (0.0-7.0) % Baso % (Auto) (0.0-1.5) % Neut # (Auto) (1.4-5.7) K/uL Lymph # (Auto) (0.6-2.4) K/uL [place] # (Auto) (0.0-0.8) K/uL Eos # (Auto) (0.0-0.7) K/uL Baso # (Auto) (0.0-0.1) K/uL Nucleated RBC % /100WBC Nucleated RBCs # K/uL Sodium 134 L (136-145) mmol/L Potassium 3.9 (3.5-5.1) mmol/L Chloride 99 (98-107) mmol/L Carbon Dioxide 24.3 (21.0-32.0) mmol/L BUN 12 (7.0-18.0) mg/dL Creatinine 1.0 (0.6-1.0) mg/dL Est Cr Clr Drug Dosing 70.39 mL/min Estimated GFR (MDRD) > 60.0 ml/min Glucose 111 H (74-106) mg/dL Calcium 9.0 (8.5-10.1) mg/dL Total Bilirubin 0.6 (0.2-1.0) mg/dL AST 23 (15-37) IU/L ALT 22 (14-63) IU/L Alkaline Phosphatase 90 (46-116) U/L Total Protein 7.8 (6.4-8.2) g/dL Albumin 3.7 (3.4-5.0) g/dL Globulin 4.1 H (2.0-3.5) g/dL Albumin/Globulin Ratio 0.9 L (1.3-2.8) Lipase 3997 H (73-393) U/L Urine Color Urine Appearance Urine pH (5.0-8.0) Ur Specific [place] (1.001-1.035) Urine Protein (NEGATIVE) mg/dL Urine Glucose (UA) (NEGATIVE) mg/dL Urine Ketones (NEGATIVE) mg/dL Urine Occult Blood (NEGATIVE) Urine Nitrite (NEGATIVE) Urine Bilirubin (NEGATIVE) Urine Urobilinogen (<2.0) EU/dL Ur Leukocyte Esterase (NEGATIVE) Urine RBC (0-2/HPF) Urine WBC (0-5/HPF) Ur Epithelial Cells (NONE-FEW) Urine Bacteria (NEGATIVE) Urine Mucus (NONE-MOD) Urine HCG, Qual (NEGATIVE) Ethyl Alcohol <3 mg/dL Result Diagrams: 12/30/17 05:50 12/30/17 05:50 Problem List Initiated/Reviewed/Updated: Yes Orders Last 24hrs: Active Orders 24 hr Category Date Time Status Admission Status [Patient Status] [ADT] Stat ADT 12/30/17 08:03 Active Oxygen Therapy [RC] PRN Care 12/30/17 08:52 Ordered Up ad [place] [RC] ASDIRECTED Care 12/30/17 08:52 Ordered VTE/DVT Education [RC] PER UNIT ROUTINE Care 12/30/17 08:52 Ordered Vital Signs [RC] Q4H Care 12/30/17 08:52 Ordered Nothing per Oral Now Diet [DIET] Diet 12/30/17 Breakfast Ordered Abdomen Pelvis w Cont [CT] Stat Exams 12/30/17 05:56 Taken CBC WITH AUTO DIFF [HEME] AM Lab 12/31/17 05:11 Ordered COMPREHENSIVE METABOLIC PN,CMP [CHEM] AM Lab 12/31/17 05:11 Ordered CULTURE URINE [RM] Stat Lab 12/30/17 05:44 Received HCG QUALITATIVE,URINE [URCHEM] Stat Lab 12/30/17 05:44 Ordered UA W/MICROSCOPIC [URIN] Stat Lab 12/30/17 05:44 Ordered Enoxaparin [Lovenox] Med 12/30/17 09:00 Ordered 40 mg SUBCUT Q24H HYDROmorphone [Dilaudid] Med 12/30/17 08:52 Ordered 0.5 mg IVPUSH Q2H PRN Ondansetron [Zofran] Med 12/30/17 08:52 Ordered 4 mg IVPUSH Q4H PRN Sodium Chloride 0.9% [Normal Saline] 1,000 ml Med 12/30/17 09:00 Ordered IV ASDIRECTED Sodium Chloride 0.9% [Normal Saline] 1,000 ml Med 12/30/17 08:03 Active IV STAT Sodium Chloride 0.9% [Saline Flush] Med 12/30/17 05:56 Active 10 ml FLUSH ASDIRECTED PRN Sodium Chloride 0.9% [Saline Flush] Med 12/30/17 05:56 Active 2.5 ml FLUSH ASDIRECTED PRN Sodium Chloride 0.9% [Saline Flush] Med 12/30/17 05:56 Active 2.5 ml FLUSH ASDIRECTED PRN Saline Lock Insert [OM.PC] Stat Oth 12/30/17 05:56 Ordered Sequential Compression Device [OM.PC] Per Unit Routine Oth 12/30/17 08:53 Ordered Resuscitation Status Routine Resus Stat 12/30/17 08:52 Ordered Medication Orders Sodium Chloride (Normal Saline) 1,000 mls @ 999 mls/hr IV STAT ONE Stop: 12/30/17 09:03 Last Admin: 12/30/17 08:10 Dose: 999 mls/hr Sodium Chloride (Saline Flush) 2.5 ml FLUSH ASDIRECTED PRN PRN Reason: Keep Vein Open Last Admin: 12/30/17 07:40 Dose: 2.5 ml Sodium Chloride (Saline Flush) 10 ml FLUSH ASDIRECTED PRN PRN Reason: Keep Vein Open Last Admin: 12/30/17 07:40 Dose: 10 ml Sodium Chloride (Saline Flush) 2.5 ml FLUSH ASDIRECTED PRN PRN Reason: Keep Vein Open Last Admin: 12/30/17 07:40 Dose: 2.5 ml Assessment/Plan Comment:: 32 yo female admitted with alcoholic pancreatitis. We will treat with IV fluids , bowel rest and prn dilaudid. We will also place on CIWA protocol, thiamin and folic acid.
[2017-12-30] MEDS: Sodium Chloride 0.9% 1,000 ML IV SCH ×3 (09:41→19:35)
[2017-12-30] MEDS: Enoxaparin 40 MG/0.4 ML Syringe SUBCUT SCH (09:44)
[2017-12-30] MEDS: Thiamine 200 MG/2 ML MDV IV SCH (09:47)
[2017-12-30] MEDS: Folic Acid 50 MG/10 ML MDV SUBCUT SCH (09:48)
[2017-12-30] MEDS: HYDROmorphone 2 MG/ML SDV IVPUSH PRN ×7 (09:48→23:34)
--- NOTE | 2017-12-30 14:04 | CT ---
EXAM DATE: 12/30/17 PATIENT'S AGE: 32 Patient: ALDEN BORGES Facility: [place], [place] Site . Site : 1985 Study: CT Abdomen/Pelvis [id number] 7:10:43 AM Ordering Physician: Abbe James Final Report: INDICATION: Upper abdominal pain. Pancreatitis. TECHNIQUE: CT abdomen and pelvis acquired with 100 cc Isovue 370 IV contrast. COMPARISON: November 22, 2017 FINDINGS: Lower chest: Unremarkable. Liver: Unremarkable. Normal in size and attenuation. No masses. Gallbladder and bile ducts: Unremarkable. No stones or inflammation. No biliary dilatation. Pancreas: Moderate to severe pancreatic inflammation most prevalent about the pancreatic head has slightly worsened. No convincing evidence for necrosis, abscess or pseudocyst formation. Pancreatic duct is normal in caliber. Spleen: Unremarkable. Normal in size. No masses. Adrenal glands: Unremarkable. No nodules. Kidneys: Unremarkable. No masses, stones, or hydronephrosis. GI tract: Unremarkable. Normal in caliber. No sign of mass or inflammation. Normal appendix. Vasculature: Unremarkable. Lymph nodes: No lymphadenopathy. Omentum/Peritoneum/Abdominal Wall: Unremarkable. No sign of mass or infiltration. No free air or significant free fluid. Pelvis: Unremarkable. Bones: Unremarkable for age. IMPRESSION: Slight interval worsening of moderate to severe acute pancreatitis. No convincing evidence for abscess or necrosis. Please note that all CT scans at this facility use dose modulation, iterative reconstruction, and/or weight-based dosing when appropriate to reduce radiation dose to as low as reasonably achievable. Dictated by Grabiel Escoto MD @ Dec 30 2017 7:36AM (Electronic Signature) Report Signed by Proxy. [facility]
[2017-12-31] MEDS: Sodium Chloride 0.9% 1,000 ML IV SCH ×3 (00:37→10:49)
[2017-12-31] MEDS: HYDROmorphone 2 MG/ML SDV IVPUSH PRN ×4 (01:33→07:51)
[2017-12-31 06:02] LABS: CHLORIDE,CL 104 mmol/L (98-107); SODIUM,NA 137 mmol/L (136-145)
[2017-12-31] MEDS: Folic Acid 50 MG/10 ML MDV SUBCUT SCH (07:59)
[2017-12-31] MEDS: Enoxaparin 40 MG/0.4 ML Syringe SUBCUT SCH (07:59)
[2017-12-31] MEDS: Thiamine 200 MG/2 ML MDV IV SCH (08:00)
[2017-12-31] MEDS ORDERED: HYDROmorphone 1 MG/ML Syringe IVPUSH PRN (08:15)
--- NOTE | 2017-12-31 09:10 | PCM.PN ---
- General Info Date of Service: 12/31/17 Admission Dx/Problem (Free Text): Admission Diagnosis/Problem Admission Diagnosis/Problem Pancreatitis Subjective Update: Feeling ok this morning, still having pain to epigastric region. No nausea or vomiting. Feeling hungry. no lower abdominal pain. Up in room. Did not sleep well. Receiving pain meds every 2 hours. Functional Status: Reports: Pain Controlled, Ambulating, Urinating. Denies: Tolerating Diet - Review of Systems General: Reports: Fatigue. Denies: Fever, Weakness HEENT: Reports: No Symptoms. Denies: Glasses, Sore Throat, Visual Changes Pulmonary: Reports: No Symptoms. Denies: Shortness of Breath Cardiovascular: Reports: No Symptoms. Denies: Chest Pain Gastrointestinal: Reports: Abdominal Pain (epigastric), Other (feeling very hungry). Denies: Nausea, Vomiting Genitourinary: Reports: No Symptoms. Denies: Dysuria, Frequency, Burning Neurological: Reports: No Symptoms Psychiatric: Reports: No Symptoms - Patient Data Vitals - Most Recent: Last Vital Signs Temp 97.9 F 12/31/17 08:00 Pulse 75 12/31/17 08:00 Resp 12 12/31/17 08:00 BP 123/89 12/31/17 08:00 Pulse Ox 100 12/31/17 08:00 Weight - Most Recent: 72.8 kg I&O - Last 24 Hours: Intake & Output 12/30/17 12/31/17 12/31/17 22:59 06:59 14:59 Intake Total 1244 0 Output Total 500 950 Balance 744 -950 Lab Results Last 24 Hours: Laboratory Results - last 24 hr 12/31/17 12/31/17 Range/Units 05:30 05:30 WBC 6.51 (4.0-11.0) K/uL RBC 3.39 L (4.30-5.90) M/uL Hgb 10.3 L (12.0-16.0) g/dL Hct 31.2 L (36.0-46.0) % MCV 92.0 (80.0-98.0) fL MCH 30.4 (27.0-32.0) pg MCHC 33.0 (31.0-37.0) g/dL RDW Std Deviation 45.5 (28.0-62.0) fl RDW Coeff of [place] 14 (11.0-15.0) % Plt Count 212 (150-400) K/uL MPV 8.20 (7.40-12.00) fL Neut % (Auto) 50.7 (48.0-80.0) % Lymph % (Auto) 37.6 (16.0-40.0) % [place] % (Auto) 8.6 (0.0-15.0) % Eos % (Auto) 2.8 (0.0-7.0) % Baso % (Auto) 0.3 (0.0-1.5) % Neut # (Auto) 3.3 (1.4-5.7) K/uL Lymph # (Auto) 2.5 H (0.6-2.4) K/uL [place] # (Auto) 0.6 (0.0-0.8) K/uL Eos # (Auto) 0.2 (0.0-0.7) K/uL Baso # (Auto) 0.0 (0.0-0.1) K/uL Nucleated RBC % 0.0 /100WBC Nucleated RBCs # 0 K/uL Sodium 137 (136-145) mmol/L Potassium 3.6 (3.5-5.1) mmol/L Chloride 104 (98-107) mmol/L Carbon Dioxide 24.7 (21.0-32.0) mmol/L BUN 4 L (7.0-18.0) mg/dL Creatinine 0.7 (0.6-1.0) mg/dL Est Cr Clr Drug Dosing 100.55 mL/min Estimated GFR (MDRD) > 60.0 ml/min Glucose 93 (74-106) mg/dL Calcium 6.8 L (8.5-10.1) mg/dL Total Bilirubin 0.6 (0.2-1.0) mg/dL AST 20 (15-37) IU/L ALT 17 (14-63) IU/L Alkaline Phosphatase 70 (46-116) U/L Total Protein 5.5 L (6.4-8.2) g/dL Albumin 2.6 L (3.4-5.0) g/dL Globulin 2.9 (2.0-3.5) g/dL Albumin/Globulin Ratio 0.9 L (1.3-2.8) Med Orders - Current: Current Medications Enoxaparin Sodium (Lovenox) 40 mg SUBCUT Q24H [facility] Last Admin: 12/31/17 07:59 Dose: 40 mg Folic Acid (Folic Acid) 1 mg SUBCUT DAILY [facility] Last Admin: 12/31/17 07:59 Dose: 1 mg Hydromorphone HCl (Dilaudid) 0.5 mg IVPUSH Q2H PRN PRN Reason: Pain (severe 7-10) Sodium Chloride (Normal Saline) 1,000 mls @ 200 mls/hr IV ASDIRECTED [facility] Last Admin: 12/31/17 05:39 Dose: 200 mls/hr Lorazepam (Ativan) 0 mg IVPUSH Q4H PRN; Protocol PRN Reason: Agitation Ondansetron HCl (Zofran) 4 mg IVPUSH Q4H PRN PRN Reason: Nausea Pantoprazole Sodium (Protonix Iv) 40 mg IVPUSH Q24H [facility] Sodium Chloride (Saline Flush) 2.5 ml FLUSH ASDIRECTED PRN PRN Reason: Keep Vein Open Last Admin: 12/30/17 07:40 Dose: 2.5 ml Sodium Chloride (Saline Flush) 10 ml FLUSH ASDIRECTED PRN PRN Reason: Keep Vein Open Last Admin: 12/30/17 07:40 Dose: 10 ml Sodium Chloride (Saline Flush) 2.5 ml FLUSH ASDIRECTED PRN PRN Reason: Keep Vein Open Last Admin: 12/30/17 07:40 Dose: 2.5 ml Thiamine HCl (Vitamin B-1) 100 mg IV DAILY [facility] Last Admin: 12/31/17 08:00 Dose: 100 mg Discontinued Medications Enalaprilat (Vasotec Iv) 1.25 mg IVPUSH ONETIME ONE Stop: 12/30/17 07:30 Last Admin: 12/30/17 07:39 Dose: 1.25 mg Hydromorphone HCl (Dilaudid) 1 mg IVPUSH ONETIME ONE Stop: 12/30/17 05:57 Last Admin: 12/30/17 06:16 Dose: Not Given Hydromorphone HCl (Dilaudid) 1 mg IVPUSH ONETIME ONE Stop: 12/30/17 06:03 Last Admin: 12/30/17 06:10 Dose: 1 mg Hydromorphone HCl (Dilaudid) 1 mg IVPUSH ONETIME ONE Stop: 12/30/17 07:34 Last Admin: 12/30/17 07:39 Dose: 1 mg Hydromorphone HCl (Dilaudid) 0.5 mg IVPUSH Q2H PRN PRN Reason: Pain (severe 7-10) Last Admin: 12/31/17 07:51 Dose: 0.5 mg Sodium Chloride (Normal Saline) 1,000 mls @ 999 mls/hr IV .Bolus ONE Stop: 12/30/17 06:56 Last Admin: 12/30/17 06:03 Dose: 999 mls/hr Sodium Chloride (Normal Saline) 1,000 mls @ 999 mls/hr IV STAT ONE Stop: 12/30/17 09:03 Last Admin: 12/30/17 08:10 Dose: 999 mls/hr Iopamidol (Isovue Multipack-370 (76%)) 100 ml IVPUSH ONETIME STA Stop: 12/30/17 06:53 Last Admin: 12/30/17 06:53 Dose: 100 ml Ondansetron HCl (Zofran) 4 mg IVPUSH ONETIME ONE Stop: 12/30/17 05:57 Last Admin: 12/30/17 06:18 Dose: 4 mg Pantoprazole Sodium (Protonix Iv) 80 mg IVPUSH .BOLUS ONE Stop: 12/30/17 06:05 Last Admin: 12/30/17 06:11 Dose: 80 mg - Exam General: Alert, Oriented, Cooperative, No Acute Distress Neck: Supple Lungs: Clear to Auscultation, Normal Respiratory Effort Cardiovascular: Regular Rate, Regular Rhythm, No Murmurs GI/Abdominal Exam: Normal Bowel Sounds, Soft, Tender (epigastric and entire upper abdomen) Back Exam: Normal Inspection, Full Range of Motion Extremities: Normal Inspection, Normal Range of Motion, Non-Tender Neurological: No New Focal Deficit Psy/Mental Status: Alert, Normal Affect, Normal Mood - Problem List & Annotations (1) Pancreatitis SNOMED Code(s): 98575674 Code(s): K85.90 - ACUTE PANCREATITIS WITHOUT NECROSIS OR INFECTION, UNSP Status: Acute Current Visit: Yes Qualifiers: Chronicity: acute Pancreatitis type: alcohol induced Acute pancreatitis complication: unspecified Qualified Code(s): K85.20 - Alcohol induced acute pancreatitis without necrosis or infection (2) GERD (gastroesophageal reflux disease) SNOMED Code(s): 812070076 Code(s): K21.9 - GASTRO-ESOPHAGEAL REFLUX DISEASE WITHOUT ESOPHAGITIS Status: Chronic Current Visit: No Qualifiers: Esophagitis presence: esophagitis presence not specified Qualified Code(s) : K21.9 - Gastro-esophageal reflux disease without esophagitis (3) Alcohol abuse SNOMED Code(s): 12607300 Code(s): F10.10 - ALCOHOL ABUSE, UNCOMPLICATED Status: Chronic Current Visit: No - Problem List Review Problem List Initiated/Reviewed/Updated: Yes - My Orders Last 24 Hours: My Active Orders 12/31/17 09:15 Pantoprazole [ProTONIX IV] 40 mg IVPUSH Q24H 01/01/18 05:11 CBC WITH AUTO DIFF [HEME] AM COMPREHENSIVE METABOLIC PN,CMP [CHEM] AM 01/02/18 05:11 CBC WITH AUTO DIFF [HEME] AM COMPREHENSIVE METABOLIC PN,CMP [CHEM] AM 01/03/18 05:11 CBC WITH AUTO DIFF [HEME] AM COMPREHENSIVE METABOLIC PN,CMP [CHEM] AM - Plan Plan:: 32 yo female admitted with alcoholic pancreatitis. 1. Acute alcoholic pancreatitis: Scant improvement in pain. Continue with IV fluids, bowel rest and prn dilaudid. On CIWAA protocol but has not received any Ativan. Continue thiamine and folic acid supplementation. Will add Protonix IV daily. Will allow ice chips this morning. Reports feeling very hungry but still needing pain medication every 2 hours, will hold off on diet, patient feels pain is too much to cut back on meds at this time. Will re-evaluate this afternoon. VTE prophylaxis: Lovenox. Dispo: 2-3 days pending improvement.
[2017-12-31] MEDS ORDERED: Pantoprazole 40 MG Vial IVPUSH SCH (09:15)
[2017-12-31] MEDS ORDERED: oxyCODONE 5 MG Tab PO PRN (10:27)
--- NOTE | 2017-12-31 15:16 | PCM.DCSUM1 ---
Discharge Summary - Hospital Course Brief History: 32 yo female with pmh of ETOH pancreatitis with last admission two months ago. She presents today with one day history of abdominal pain. She had a few drinks yesterday for the fourth of the December. She says she has cut back on her drinking. - Discharge Data Discharge Date: 12/31/17 Discharge Disposition: Home, Self-Care 01 Condition: Good - Discharge Diagnosis/Problem(s) (1) Pancreatitis SNOMED Code(s): 73354795 ICD Code: K85.90 - ACUTE PANCREATITIS WITHOUT NECROSIS OR INFECTION, UNSP Status: Acute Current Visit: Yes Qualifiers: Chronicity: acute Pancreatitis type: alcohol induced Acute pancreatitis complication: unspecified Qualified Code(s): K85.20 - Alcohol induced acute pancreatitis without necrosis or infection (2) GERD (gastroesophageal reflux disease) SNOMED Code(s): 667352408 ICD Code: K21.9 - GASTRO-ESOPHAGEAL REFLUX DISEASE WITHOUT ESOPHAGITIS Status: Chronic Current Visit: No Qualifiers: Esophagitis presence: esophagitis presence not specified Qualified Code(s) : K21.9 - Gastro-esophageal reflux disease without esophagitis (3) Alcohol abuse SNOMED Code(s): 82457398 ICD Code: F10.10 - ALCOHOL ABUSE, UNCOMPLICATED Status: Chronic Current Visit: No - Patient Instructions Diet: Full Liquid Diet Activity: As Tolerated Driving: Do Not Drive Showering/Bathing: May Shower Notify Provider of: Fever, Increased Pain, Nausea and/or Vomiting - Discharge Plan Prescriptions/Med Rec: oxyCODONE 5 - 10 mg PO Q4H PRN #20 tablet PRN Reason: Pain Home Medications: Home Meds Lisinopril [Prinivil] 5 mg PO DAILY #30 tablet 11/22/17 [Rx] oxyCODONE 5 - 10 mg PO Q4H PRN #20 tablet 12/31/17 [Rx] Referrals: Pooja Ray NP [Nurse Practitioner] - 01/14/18 9:30 am PCP,None [Primary Care Provider] - - Discharge Summary/Plan Comment DC Time >30 min.: No Discharge Summary/Plan Comment: Discharge Diagnoses: Acute on chronic alcoholic pancreatitis Gisel was admitted and treated for acute on chronic pancreatitis with bowel rest IVFs and pain medication. Leukocytosis improved with hydration. Dilaudid was stopped this morning and given Oxycodone PO with CL and FL diet. She is tolerating this well and is requesting discharge home. She will be discharged home today with Oxycodone 5 mg 1-2 tabs by mouth every 4-6 hrs PRN pain #20 no refills. She will follow up with PCP in 1 week. She was encouraged to remain on [place] diet for next couple days and slowly back to low fat regular diet. She was encouraged to stop using alcohol. - General Info Date of Service: 12/31/17 Admission Dx/Problem (Free Text: Admission Diagnosis/Problem Admission Diagnosis/Problem Pancreatitis Subjective Update: Feeling good now, pain is under control. Requesting to go home. - Review of Systems General: Reports: No Symptoms. Denies: Fever, Weakness, Fatigue Pulmonary: Reports: No Symptoms. Denies: Shortness of Breath Cardiovascular: Reports: No Symptoms. Denies: Chest Pain, Palpitations Gastrointestinal: Reports: Abdominal Pain (epigastric pain, better.) Genitourinary: Reports: No Symptoms. Denies: Dysuria, Frequency, Burning Musculoskeletal: Reports: No Symptoms. Denies: Neck Pain Skin: Reports: No Symptoms Neurological: Reports: No Symptoms Psychiatric: Reports: No Symptoms - Patient Data Vitals - Most Recent: Last Vital Signs Temp 97.2 F 12/31/17 12:00 Pulse 89 12/31/17 12:00 Resp 16 12/31/17 12:00 BP 140/53 L 12/31/17 12:00 Pulse Ox 97 12/31/17 12:00 Weight - Most Recent: 72.8 kg I&O - Last 24 hours: Intake & Output 12/31/17 12/31/17 12/31/17 06:59 14:59 22:59 Intake Total 0 Output Total 950 Balance -950 Lab Results - Last 24 hrs: Laboratory Results - last 24 hr 12/31/17 12/31/17 Range/Units 05:30 05:30 WBC 6.51 (4.0-11.0) K/uL RBC 3.39 L (4.30-5.90) M/uL Hgb 10.3 L (12.0-16.0) g/dL Hct 31.2 L (36.0-46.0) % MCV 92.0 (80.0-98.0) fL MCH 30.4 (27.0-32.0) pg MCHC 33.0 (31.0-37.0) g/dL RDW Std Deviation 45.5 (28.0-62.0) fl RDW Coeff of [place] 14 (11.0-15.0) % Plt Count 212 (150-400) K/uL MPV 8.20 (7.40-12.00) fL Neut % (Auto) 50.7 (48.0-80.0) % Lymph % (Auto) 37.6 (16.0-40.0) % [place] % (Auto) 8.6 (0.0-15.0) % Eos % (Auto) 2.8 (0.0-7.0) % Baso % (Auto) 0.3 (0.0-1.5) % Neut # (Auto) 3.3 (1.4-5.7) K/uL Lymph # (Auto) 2.5 H (0.6-2.4) K/uL [place] # (Auto) 0.6 (0.0-0.8) K/uL Eos # (Auto) 0.2 (0.0-0.7) K/uL Baso # (Auto) 0.0 (0.0-0.1) K/uL Nucleated RBC % 0.0 /100WBC Nucleated RBCs # 0 K/uL Sodium 137 (136-145) mmol/L Potassium 3.6 (3.5-5.1) mmol/L Chloride 104 (98-107) mmol/L Carbon Dioxide 24.7 (21.0-32.0) mmol/L BUN 4 L (7.0-18.0) mg/dL Creatinine 0.7 (0.6-1.0) mg/dL Est Cr Clr Drug Dosing 100.55 mL/min Estimated GFR (MDRD) > 60.0 ml/min Glucose 93 (74-106) mg/dL Calcium 6.8 L (8.5-10.1) mg/dL Total Bilirubin 0.6 (0.2-1.0) mg/dL AST 20 (15-37) IU/L ALT 17 (14-63) IU/L Alkaline Phosphatase 70 (46-116) U/L Total Protein 5.5 L (6.4-8.2) g/dL Albumin 2.6 L (3.4-5.0) g/dL Globulin 2.9 (2.0-3.5) g/dL Albumin/Globulin Ratio 0.9 L (1.3-2.8) Med Orders - Current: Current Medications Enoxaparin Sodium (Lovenox) 40 mg SUBCUT Q24H [facility] Last Admin: 12/31/17 07:59 Dose: 40 mg Folic Acid (Folic Acid) 1 mg SUBCUT DAILY [facility] Last Admin: 12/31/17 07:59 Dose: 1 mg Sodium Chloride (Normal Saline) 1,000 mls @ 200 mls/hr IV ASDIRECTED [facility] Last Admin: 12/31/17 10:49 Dose: 200 mls/hr Lorazepam (Ativan) 0 mg IVPUSH Q4H PRN; Protocol PRN Reason: Agitation Ondansetron HCl (Zofran) 4 mg IVPUSH Q4H PRN PRN Reason: Nausea Oxycodone HCl (Oxycodone) 5 - 10 mg PO Q4H PRN PRN Reason: Pain Last Admin: 12/31/17 10:53 Dose: 10 mg Pantoprazole Sodium (Protonix Iv) 40 mg IVPUSH Q24H [facility] Last Admin: 12/31/17 09:39 Dose: 40 mg Sodium Chloride (Saline Flush) 2.5 ml FLUSH ASDIRECTED PRN PRN Reason: Keep Vein Open Last Admin: 12/30/17 07:40 Dose: 2.5 ml Sodium Chloride (Saline Flush) 10 ml FLUSH ASDIRECTED PRN PRN Reason: Keep Vein Open Last Admin: 12/30/17 07:40 Dose: 10 ml Sodium Chloride (Saline Flush) 2.5 ml FLUSH ASDIRECTED PRN PRN Reason: Keep Vein Open Last Admin: 12/30/17 07:40 Dose: 2.5 ml Thiamine HCl (Vitamin B-1) 100 mg IV DAILY [facility] Last Admin: 12/31/17 08:00 Dose: 100 mg Discontinued Medications Enalaprilat (Vasotec Iv) 1.25 mg IVPUSH ONETIME ONE Stop: 12/30/17 07:30 Last Admin: 12/30/17 07:39 Dose: 1.25 mg Hydromorphone HCl (Dilaudid) 1 mg IVPUSH ONETIME ONE Stop: 12/30/17 05:57 Last Admin: 12/30/17 06:16 Dose: Not Given Hydromorphone HCl (Dilaudid) 1 mg IVPUSH ONETIME ONE Stop: 12/30/17 06:03 Last Admin: 12/30/17 06:10 Dose: 1 mg Hydromorphone HCl (Dilaudid) 1 mg IVPUSH ONETIME ONE Stop: 12/30/17 07:34 Last Admin: 12/30/17 07:39 Dose: 1 mg Hydromorphone HCl (Dilaudid) 0.5 mg IVPUSH Q2H PRN PRN Reason: Pain (severe 7-10) Last Admin: 12/31/17 07:51 Dose: 0.5 mg Hydromorphone HCl (Dilaudid) 0.5 mg IVPUSH Q2H PRN PRN Reason: Pain (severe 7-10) Sodium Chloride (Normal Saline) 1,000 mls @ 999 mls/hr IV .Bolus ONE Stop: 12/30/17 06:56 Last Admin: 12/30/17 06:03 Dose: 999 mls/hr Sodium Chloride (Normal Saline) 1,000 mls @ 999 mls/hr IV STAT ONE Stop: 12/30/17 09:03 Last Admin: 12/30/17 08:10 Dose: 999 mls/hr Iopamidol (Isovue Multipack-370 (76%)) 100 ml IVPUSH ONETIME STA Stop: 12/30/17 06:53 Last Admin: 12/30/17 06:53 Dose: 100 ml Ondansetron HCl (Zofran) 4 mg IVPUSH ONETIME ONE Stop: 12/30/17 05:57 Last Admin: 12/30/17 06:18 Dose: 4 mg Pantoprazole Sodium (Protonix Iv) 80 mg IVPUSH .BOLUS ONE Stop: 12/30/17 06:05 Last Admin: 12/30/17 06:11 Dose: 80 mg - Exam General: Reports: Alert, Oriented, Cooperative, No Acute Distress Lungs: Reports: Clear to Auscultation, Normal Respiratory Effort Cardiovascular: Reports: Regular Rate, Regular Rhythm GI/Abdominal Exam: Normal Bowel Sounds, Soft, Tender Extremities: Normal Inspection, Normal Range of Motion Neurological: Reports: No New Focal Deficit Psy/Mental Status: Reports: Alert, Normal Affect, Normal Mood
== END 2017-12-31 15:50 | disposition home or self-care (01) | DRG 440 ==
LOC: MW.ED 05:25 → MW.MS 08:20
PROVIDERS: ADMIT Internal Medicine; ATTEND Internal Medicine
DX: K85.20 Alcohol induced acute pancreatitis without necrosis or infection (principal); K86.0 Alcohol-induced chronic pancreatitis; K21.9 Gastro-esophageal reflux disease without esophagitis; F10.10 Alcohol abuse, uncomplicated; Z79.899 Other long term (current) drug therapy
CPT/HCPCS: 36415; 74177; 74177-26; 80053; 81001; 81025; 83690; 85025; 87086; 96361; 96374; 96375; 96376; 99285-25; A9270-GY; C9113; G0480; J1170; J1650; J2405; J3411; J7040; Q9967

== ENCOUNTER 2018-03-05 04:00 | Inpatient (IN) | payer MEDICAID ==
[2018-03-05] MEDS ORDERED: Sodium Chloride 0.9% 1,000 ML IV ONE (04:12)
--- NOTE | 2018-03-05 04:16 | EDM.PDOC ---
ED HPI GENERAL MEDICAL PROBLEM - General Chief Complaint: Abdominal Pain Stated Complaint: ABDOMINAL PAIN- HISTORY OF PANCREATITIS Time Seen by Provider: 03/05/18 04:12 - History of Present Illness INITIAL COMMENTS - FREE TEXT/NARRATIVE: HISTORY AND PHYSICAL: History of present illness: Patient's a 32-year-old female with history of pancreatitis and alcohol abuse who presents with a concern of upper abdominal pain she's had nausea no vomiting no fever no chills no chest pain shortness of breath she states she's not had a drink within 24 hours but did drink prior to that. Review of systems: As per history of present illness and below otherwise all systems reviewed and negative. Past medical history: As per history of present illness and as reviewed below otherwise noncontributory. Surgical history: As per history of present illness and as reviewed below otherwise noncontributory. Social history: No reported history of drug or alcohol abuse. Family history: As per history of present illness and as reviewed below otherwise noncontributory. Physical exam: HEENT: Atraumatic, normocephalic, pupils reactive, negative for conjunctival pallor or scleral icterus, mucous membranes moist, throat clear, neck supple, nontender, trachea midline. Lungs: Clear to auscultation, breath sounds equal bilaterally, chest nontender. Heart: S1S2, regular, negative for clicks, rubs, or JVD. Abdomen: Soft, nondistended, mild tenderness across her upper abdomen no rebound no guarding. Negative for masses or hepatosplenomegaly. Negative for costovertebral tenderness. Pelvis: Stable nontender. Genitourinary: Deferred. Rectal: Deferred. Extremities: Atraumatic, negative for cords or calf pain. Neurovascular unremarkable. Neuro: Awake, alert, oriented. Cranial nerves II through XII unremarkable. Cerebellum unremarkable. Motor and sensory unremarkable throughout. Exam nonfocal. Diagnostics: CBC CMP UA hCG lipase UDS EtOH CT abdomen and pelvis with IV contrast Therapeutics: Saline 1 L bolus Impression: 1 abdominal pain #2 history of pancreatitis #3 history of ethanol abuse Definitive disposition and diagnosis as appropriate pending reevaluation and review of above. epigastric Pain Score (Numeric/FACES): 8 - Related Data Allergies Allergy/AdvReac Type Severity Reaction Status Date / Time No Known Allergies Allergy Verified 03/05/18 04:11 Home Meds: Home Meds . [No Known Home Meds] 03/05/18 [History] Past Medical History - Past Health History Medical/Surgical History: Denies Medical/Surgical History HEENT History: Reports: None Cardiovascular History: Reports: None. Denies: CAD, High Cholesterol, Hypertension, [place] Respiratory History: Reports: None. Denies: COPD, PE Gastrointestinal History: Reports: Pancreatitis Genitourinary History: Reports: None. 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 Denies: CVA, TIA Psychiatric History: Reports: Addiction Other Psychiatric History: ETOH Endocrine/Metabolic History: Reports: None. Denies: Diabetes, Type II Hematologic History: Reports: None Immunologic History: Reports: None Oncologic (Cancer) History: Reports: None Dermatologic History: Reports: None - Infectious Disease History Infectious Disease History: Reports: Chicken Pox - Past Surgical History Head Surgeries/Procedures: Reports: None HEENT Surgical History: Reports: None Cardiovascular Surgical History: Reports: None Respiratory Surgical History: Reports: None GI Surgical History: Reports: None Female Surgical History: Reports: None Endocrine Surgical History: Reports: None Neurological Surgical History: Reports: None Musculoskeletal Surgical History: Reports: None Oncologic Surgical History: Reports: None Dermatological Surgical History: Reports: None Social & Family History - Family History Family Medical History: Noncontributory Cardiac: Reports: [place] - Caffeine Use Caffeine Use: Reports: Coffee - Living Situation & Occupation Living situation: Reports: Single Occupation: Unemployed ED ROS GENERAL - Review of Systems Review Of Systems: ROS reveals no pertinent complaints other than HPI. ED EXAM, GENERAL - Physical Exam Exam: See Below (See dictation) Course - Vital Signs Last Recorded V/S: Last Vital Signs Temp 36.2 C 03/05/18 04:00 Pulse 111 H 03/05/18 04:00 Resp 18 03/05/18 04:00 BP 146/111 H 03/05/18 04:00 Pulse Ox 99 03/05/18 04:00 - Orders/Labs/Meds Orders: Active Orders 24 hr Category Date Time Status Abdomen Pelvis w Cont [CT] Stat Exams 03/05/18 04:14 Taken DRUG SCREEN, URINE [URCHEM] Stat Lab 03/05/18 04:13 Ordered HCG QUALITATIVE,URINE [URCHEM] Stat Lab 03/05/18 04:13 Ordered LIPASE [CHEM] Stat Lab 03/05/18 07:28 Ordered UA W/MICROSCOPIC [URIN] Stat Lab 03/05/18 04:13 Ordered Labs: Laboratory Tests 03/05/18 03/05/18 03/05/18 Range/Units 04:13 04:13 04:13 WBC (4.0-11.0) K/uL RBC (4.30-5.90) M/uL Hgb (12.0-16.0) g/dL Hct (36.0-46.0) % MCV (80.0-98.0) fL MCH (27.0-32.0) pg MCHC (31.0-37.0) g/dL RDW Std Deviation (28.0-62.0) fl RDW Coeff of [place] (11.0-15.0) % Plt Count (150-400) K/uL MPV (7.40-12.00) fL Neut % (Auto) (48.0-80.0) % Lymph % (Auto) (16.0-40.0) % Gem % (Auto) (0.0-15.0) % Eos % (Auto) (0.0-7.0) % Baso % (Auto) (0.0-1.5) % Neut # (Auto) (1.4-5.7) K/uL Lymph # (Auto) (0.6-2.4) K/uL Gem # (Auto) (0.0-0.8) K/uL Eos # (Auto) (0.0-0.7) K/uL Baso # (Auto) (0.0-0.1) K/uL Nucleated RBC % /100WBC Nucleated RBCs # K/uL Sodium (136-145) mmol/L Potassium (3.5-5.1) mmol/L Chloride (98-107) mmol/L Carbon Dioxide (21.0-32.0) mmol/L BUN (7.0-18.0) mg/dL Creatinine (0.6-1.0) mg/dL Est Cr Clr Drug Dosing mL/min Estimated GFR (MDRD) ml/min Glucose (74-106) mg/dL Calcium (8.5-10.1) mg/dL Total Bilirubin (0.2-1.0) mg/dL AST (15-37) IU/L ALT (14-63) IU/L Alkaline Phosphatase (46-116) U/L Total Protein (6.4-8.2) g/dL Albumin (3.4-5.0) g/dL Globulin (2.0-3.5) g/dL Albumin/Globulin Ratio (1.3-2.8) Urine Color YELLOW Urine Appearance HAZY Urine pH 5.5 (5.0-8.0) Ur Specific [place] 1.010 (1.001-1.035) Urine Protein NEGATIVE (NEGATIVE) mg/dL Urine Glucose (UA) NEGATIVE (NEGATIVE) mg/dL Urine Ketones NEGATIVE (NEGATIVE) mg/dL Urine Occult Blood TRACE-INTACT (NEGATIVE) Urine Nitrite NEGATIVE (NEGATIVE) Urine Bilirubin NEGATIVE (NEGATIVE) Urine Urobilinogen 0.2 (<2.0) EU/dL Ur Leukocyte Esterase NEGATIVE (NEGATIVE) Urine RBC 1-3 (0-2/HPF) Urine WBC 1-2 (0-5/HPF) Ur Epithelial Cells FEW (NONE-FEW) Urine Bacteria FEW (NEGATIVE) Urine HCG, Qual NEGATIVE (NEGATIVE) Urine Opiates Screen NEGATIVE (NEGATIVE) Ur Oxycodone Screen NEGATIVE (NEGATIVE) Urine Methadone Screen NEGATIVE (NEGATIVE) Ur Barbiturates Screen NEGATIVE (NEGATIVE) Ur Phencyclidine Scrn NEGATIVE (NEGATIVE) Ur Amphetamine Screen NEGATIVE (NEGATIVE) U Methamphetamines Scrn NEGATIVE (NEGATIVE) U Benzodiazepines Scrn NEGATIVE (NEGATIVE) U Cocaine Metab Screen NEGATIVE (NEGATIVE) U Marijuana (THC) Screen NEGATIVE (NEGATIVE) Ethyl Alcohol mg/dL 03/05/18 03/05/18 Range/Units 04:15 04:15 WBC 11.79 H (4.0-11.0) K/uL RBC 4.20 L (4.30-5.90) M/uL Hgb 13.3 (12.0-16.0) g/dL Hct 38.4 (36.0-46.0) % MCV 91.4 (80.0-98.0) fL MCH 31.7 (27.0-32.0) pg MCHC 34.6 (31.0-37.0) g/dL RDW Std Deviation 48.3 (28.0-62.0) fl RDW Coeff of [place] 15 (11.0-15.0) % Plt Count 257 (150-400) K/uL MPV 8.70 (7.40-12.00) fL Neut % (Auto) 64.9 (48.0-80.0) % Lymph % (Auto) 25.6 (16.0-40.0) % Gem % (Auto) 8.1 (0.0-15.0) % Eos % (Auto) 1.1 (0.0-7.0) % Baso % (Auto) 0.3 (0.0-1.5) % Neut # (Auto) 7.7 H (1.4-5.7) K/uL Lymph # (Auto) 3.0 H (0.6-2.4) K/uL Gem # (Auto) 1.0 H (0.0-0.8) K/uL Eos # (Auto) 0.1 (0.0-0.7) K/uL Baso # (Auto) 0.0 (0.0-0.1) K/uL Nucleated RBC % 0.0 /100WBC Nucleated RBCs # 0 K/uL Sodium 134 L (136-145) mmol/L Potassium 4.5 (3.5-5.1) mmol/L Chloride 101 (98-107) mmol/L Carbon Dioxide 21.2 (21.0-32.0) mmol/L BUN 9 (7.0-18.0) mg/dL Creatinine 0.6 (0.6-1.0) mg/dL Est Cr Clr Drug Dosing 117.31 mL/min Estimated GFR (MDRD) > 60.0 ml/min Glucose 95 (74-106) mg/dL Calcium 9.0 (8.5-10.1) mg/dL Total Bilirubin 0.7 (0.2-1.0) mg/dL AST 42 H (15-37) IU/L ALT 23 (14-63) IU/L Alkaline Phosphatase 89 (46-116) U/L Total Protein 7.8 (6.4-8.2) g/dL Albumin 3.7 (3.4-5.0) g/dL Globulin 4.1 H (2.0-3.5) g/dL Albumin/Globulin Ratio 0.9 L (1.3-2.8) Urine Color Urine Appearance Urine pH (5.0-8.0) Ur Specific [place] (1.001-1.035) Urine Protein (NEGATIVE) mg/dL Urine Glucose (UA) (NEGATIVE) mg/dL Urine Ketones (NEGATIVE) mg/dL Urine Occult Blood (NEGATIVE) Urine Nitrite (NEGATIVE) Urine Bilirubin (NEGATIVE) Urine Urobilinogen (<2.0) EU/dL Ur Leukocyte Esterase (NEGATIVE) Urine RBC (0-2/HPF) Urine WBC (0-5/HPF) Ur Epithelial Cells (NONE-FEW) Urine Bacteria (NEGATIVE) Urine HCG, Qual (NEGATIVE) Urine Opiates Screen (NEGATIVE) Ur Oxycodone Screen (NEGATIVE) Urine Methadone Screen (NEGATIVE) Ur Barbiturates Screen (NEGATIVE) Ur Phencyclidine Scrn (NEGATIVE) Ur Amphetamine Screen (NEGATIVE) U Methamphetamines Scrn (NEGATIVE) U Benzodiazepines Scrn (NEGATIVE) U Cocaine Metab Screen (NEGATIVE) U Marijuana (THC) Screen (NEGATIVE) Ethyl Alcohol <3 mg/dL Meds: Medications Discontinued Medications Generic Name Dose Route Start Last Admin Trade Name Jackie PRN Reason Stop Dose Admin Hydromorphone HCl 1 mg 03/05/18 07:25 Dilaudid IVPUSH 03/05/18 07:26 ONETIME ONE Sodium Chloride 1,000 mls @ 999 mls/hr 03/05/18 04:12 03/05/18 04:25 Normal Saline IV 03/05/18 05:12 999 mls/hr .Bolus ONE Administration Iopamidol 100 ml 03/05/18 05:26 03/05/18 05:26 Isovue Multipack-370 (76%) IVPUSH 03/05/18 05:27 100 ml ONETIME STA Administration Ketorolac Tromethamine 30 mg 03/05/18 06:20 03/05/18 06:27 Toradol IVPUSH 03/05/18 06:21 30 mg ONETIME ONE Administration Departure - Departure Time of Disposition: 07:30 Disposition: Refer to Observation Condition: Good Clinical Impression: Pancreatitis Qualifiers: Chronicity: acute Pancreatitis type: alcohol induced Acute pancreatitis complication: unspecified Qualified Code(s): K85.20 - Alcohol induced acute pancreatitis without necrosis or infection - Discharge Information Referrals: PCP,None [Primary Care Provider] - Forms: ED Department Discharge - My Orders Last 24 Hours: My Active Orders 03/05/18 04:13 DRUG SCREEN, URINE [URCHEM] Stat HCG QUALITATIVE,URINE [URCHEM] Stat UA W/MICROSCOPIC [URIN] Stat 03/05/18 04:14 Abdomen Pelvis w Cont [CT] Stat 03/05/18 07:28 LIPASE [CHEM] Stat - Assessment/Plan Last 24 Hours: My Active Orders 03/05/18 04:13 DRUG SCREEN, URINE [URCHEM] Stat HCG QUALITATIVE,URINE [URCHEM] Stat UA W/MICROSCOPIC [URIN] Stat 03/05/18 04:14 Abdomen Pelvis w Cont [CT] Stat 03/05/18 07:28 LIPASE [CHEM] Stat
[2018-03-05 04:43] LABS: CHLORIDE,CL 101 mmol/L (98-107); SODIUM,NA 134 mmol/L (136-145)
[2018-03-05] MEDS ORDERED: Iopamidol 755 MG/ML 500 ML Multipack Bottle IVPUSH STA (05:26)
[2018-03-05] MEDS ORDERED: Ketorolac 30 MG/ML SDV IVPUSH ONE (06:20)
[2018-03-05] MEDS ORDERED: HYDROmorphone 1 MG/ML Syringe IVPUSH ONE (07:25)
[2018-03-05] MEDS: Sodium Chloride 0.9% 1,000 ML IV SCH ×3 (09:13→20:34)
[2018-03-05] MEDS ORDERED: Sodium Chloride 0.9% 10 ML Syringe FLUSH PRN (09:25)
[2018-03-05] MEDS ORDERED: Sodium Chloride 0.9% 2.5 ML Syringe FLUSH PRN (09:25)
[2018-03-05] MEDS ORDERED: Ondansetron 4 MG/2 ML SDV IVPUSH PRN (09:25)
[2018-03-05] MEDS ORDERED: Acetaminophen 325 MG Tab PO PRN (09:25)
[2018-03-05] MEDS ORDERED: Morphine 2 MG/ML Syringe IVPUSH PRN (09:25)
[2018-03-05] MEDS: Enoxaparin 40 MG/0.4 ML Syringe SUBCUT SCH (10:11)
[2018-03-05] MEDS: HYDROmorphone 1 MG/ML Syringe IVPUSH PRN ×6 (10:19→22:17)
[2018-03-05] MEDS ORDERED: Thiamine 100 MG in Sodium Chloride 0.9% 100 ML IV ONE (13:40)
[2018-03-05] MEDS: Folic Acid 50 MG/10 ML MDV SUBCUT SCH (14:12)
--- NOTE | 2018-03-05 14:58 | PCM.HP ---
H&P History of Present Illness - General Date of Service: 03/05/18 Admit Problem/Dx: Admission Diagnosis/Problem Admission Diagnosis/Problem Pancreatitis Source of Information: Patient - History of Present Illness Initial Comments - Free Text/Narative: This is a 32-year-old female that is presenting with recurrent acute pancreatitis. 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 Patient states that her symptoms started yesterday in the afternoon she tried symptoms however that progressively got worse and required admission this morning she was unable to sleep at night due to severe abdominal pain. Patient is denying any nausea or vomiting. Patient does drink alcohol she states her last drink was on Wednesday , she typically does drink vodka one to 2 glasses every evening she is aware that this may exacerbate her acute pancreatitis symptoms. CT of the abdomen did show a possible mass on the head of the pancreas which an MRCP has been recommended for further evaluation. She has a lipase that is slightly greater than 8000. No signs of cholecystitis or elevated bilirubin level/AST unreality levels. epigastric Pain Score (Numeric/FACES): 5 - Related Data Allergies/Adverse Reactions: Allergies Allergy/AdvReac Type Severity Reaction Status Date / Time No Known Allergies Allergy Verified 03/05/18 04:11 Home Medications: Home Meds . 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) Musculoskeletal History: Reports: None Neurological History: Reports: None Psychiatric History: Reports: Addiction Other Psychiatric History: ETOH Endocrine/Metabolic History: Reports: None Hematologic History: Reports: None Immunologic History: Reports: None Oncologic (Cancer) History: Reports: None Dermatologic History: Reports: None - Infectious Disease History Infectious Disease History: Reports: Chicken Pox - Past Surgical History Head Surgeries/Procedures: Reports: None HEENT Surgical History: Reports: None Cardiovascular Surgical History: Reports: None Respiratory Surgical History: Reports: None GI Surgical History: Reports: None Female Surgical History: Reports: None Endocrine Surgical History: Reports: None Neurological Surgical History: Reports: None Musculoskeletal Surgical History: Reports: None Oncologic Surgical History: Reports: None Dermatological Surgical History: Reports: None Social & Family History - Family History Family Medical History: Noncontributory Cardiac: Reports: [place] - Tobacco Use Smoking Status *Q: Never Smoker Second Hand Smoke Exposure: No - Caffeine Use Caffeine Use: Reports: Coffee, Energy Drinks - Alcohol Use Days Per Week of Alcohol Use: 5 Number of Drinks Per Day: 2 Total Drinks Per Week: 10 - Recreational Drug Use Recreational Drug Use: No - Living Situation & Occupation Living situation: Reports: Single Occupation: Unemployed H&P Review of Systems - Review of Systems: Review Of Systems: ROS reveals no pertinent complaints other than HPI. Exam - Exam Exam: See Below - Vital Signs Vital Signs: Last Vital Signs Temp 36.3 C 03/05/18 13:09 Pulse 87 03/05/18 13:09 Resp 16 03/05/18 13:09 BP 143/99 H 03/05/18 13:09 Pulse Ox 98 03/05/18 13:09 Weight: 70.307 kg - Exam General: Alert, Oriented, Cooperative, Mild Distress Lungs: Clear to Auscultation, Normal Respiratory Effort Cardiovascular: Regular Rate, Regular Rhythm GI/Abdominal Exam: Tender, Abnormal Bowel Sounds Extremities: Normal Inspection, Normal Range of Motion Skin: Warm, Dry Neurological: Cranial Nerves Intact Neuro Extensive - Mental Status: Alert, Oriented x3, Normal Mood/Affect - Patient Data Lab Results Last 24 hrs: Laboratory Results - last 24 hr 03/05/18 03/05/18 03/05/18 Range/Units 04:13 04:13 04:13 WBC (4.0-11.0) K/uL RBC (4.30-5.90) M/uL Hgb (12.0-16.0) g/dL Hct (36.0-46.0) % MCV (80.0-98.0) fL MCH (27.0-32.0) pg MCHC (31.0-37.0) g/dL RDW Std Deviation (28.0-62.0) fl RDW Coeff of [place] (11.0-15.0) % Plt Count (150-400) K/uL MPV (7.40-12.00) fL Neut % (Auto) (48.0-80.0) % Lymph % (Auto) (16.0-40.0) % [place] % (Auto) (0.0-15.0) % Eos % (Auto) (0.0-7.0) % Baso % (Auto) (0.0-1.5) % Neut # (Auto) (1.4-5.7) K/uL Lymph # (Auto) (0.6-2.4) K/uL [place] # (Auto) (0.0-0.8) K/uL Eos # (Auto) (0.0-0.7) K/uL Baso # (Auto) (0.0-0.1) K/uL Nucleated RBC % /100WBC Nucleated RBCs # K/uL Sodium (136-145) mmol/L Potassium (3.5-5.1) mmol/L Chloride (98-107) mmol/L Carbon Dioxide (21.0-32.0) mmol/L BUN (7.0-18.0) mg/dL Creatinine (0.6-1.0) mg/dL Est Cr Clr Drug Dosing mL/min Estimated GFR (MDRD) ml/min Glucose (74-106) mg/dL Calcium (8.5-10.1) mg/dL Total Bilirubin (0.2-1.0) mg/dL AST (15-37) IU/L ALT (14-63) IU/L Alkaline Phosphatase (46-116) U/L Total Protein (6.4-8.2) g/dL Albumin (3.4-5.0) g/dL Globulin (2.0-3.5) g/dL Albumin/Globulin Ratio (1.3-2.8) Lipase (73-393) U/L Urine Color YELLOW Urine Appearance HAZY Urine pH 5.5 (5.0-8.0) Ur Specific [place] 1.010 (1.001-1.035) Urine Protein NEGATIVE (NEGATIVE) mg/dL Urine Glucose (UA) NEGATIVE (NEGATIVE) mg/dL Urine Ketones NEGATIVE (NEGATIVE) mg/dL Urine Occult Blood TRACE-INTACT (NEGATIVE) Urine Nitrite NEGATIVE (NEGATIVE) Urine Bilirubin NEGATIVE (NEGATIVE) Urine Urobilinogen 0.2 (<2.0) EU/dL Ur Leukocyte Esterase NEGATIVE (NEGATIVE) Urine RBC 1-3 (0-2/HPF) Urine WBC 1-2 (0-5/HPF) Ur Epithelial Cells FEW (NONE-FEW) Urine Bacteria FEW (NEGATIVE) Urine HCG, Qual NEGATIVE (NEGATIVE) Urine Opiates Screen NEGATIVE (NEGATIVE) Ur Oxycodone Screen NEGATIVE (NEGATIVE) Urine Methadone Screen NEGATIVE (NEGATIVE) Ur Barbiturates Screen NEGATIVE (NEGATIVE) Ur Phencyclidine Scrn NEGATIVE (NEGATIVE) Ur Amphetamine Screen NEGATIVE (NEGATIVE) U Methamphetamines Scrn NEGATIVE (NEGATIVE) U Benzodiazepines Scrn NEGATIVE (NEGATIVE) U Cocaine Metab Screen NEGATIVE (NEGATIVE) U Marijuana (THC) Screen NEGATIVE (NEGATIVE) Ethyl Alcohol mg/dL 03/05/18 03/05/18 03/05/18 Range/Units 04:15 04:15 04:15 WBC 11.79 H (4.0-11.0) K/uL RBC 4.20 L (4.30-5.90) M/uL Hgb 13.3 (12.0-16.0) g/dL Hct 38.4 (36.0-46.0) % MCV 91.4 (80.0-98.0) fL MCH 31.7 (27.0-32.0) pg MCHC 34.6 (31.0-37.0) g/dL RDW Std Deviation 48.3 (28.0-62.0) fl RDW Coeff of [place] 15 (11.0-15.0) % Plt Count 257 (150-400) K/uL MPV 8.70 (7.40-12.00) fL Neut % (Auto) 64.9 (48.0-80.0) % Lymph % (Auto) 25.6 (16.0-40.0) % [place] % (Auto) 8.1 (0.0-15.0) % Eos % (Auto) 1.1 (0.0-7.0) % Baso % (Auto) 0.3 (0.0-1.5) % Neut # (Auto) 7.7 H (1.4-5.7) K/uL Lymph # (Auto) 3.0 H (0.6-2.4) K/uL [place] # (Auto) 1.0 H (0.0-0.8) K/uL Eos # (Auto) 0.1 (0.0-0.7) K/uL Baso # (Auto) 0.0 (0.0-0.1) K/uL Nucleated RBC % 0.0 /100WBC Nucleated RBCs # 0 K/uL Sodium 134 L (136-145) mmol/L Potassium 4.5 (3.5-5.1) mmol/L Chloride 101 (98-107) mmol/L Carbon Dioxide 21.2 (21.0-32.0) mmol/L BUN 9 (7.0-18.0) mg/dL Creatinine 0.6 (0.6-1.0) mg/dL Est Cr Clr Drug Dosing 117.31 mL/min Estimated GFR (MDRD) > 60.0 ml/min Glucose 95 (74-106) mg/dL Calcium 9.0 (8.5-10.1) mg/dL Total Bilirubin 0.7 (0.2-1.0) mg/dL AST 42 H (15-37) IU/L ALT 23 (14-63) IU/L Alkaline Phosphatase 89 (46-116) U/L Total Protein 7.8 (6.4-8.2) g/dL Albumin 3.7 (3.4-5.0) g/dL Globulin 4.1 H (2.0-3.5) g/dL Albumin/Globulin Ratio 0.9 L (1.3-2.8) Lipase 8349 H (73-393) U/L Urine Color Urine Appearance Urine pH (5.0-8.0) Ur Specific [place] (1.001-1.035) Urine Protein (NEGATIVE) mg/dL Urine Glucose (UA) (NEGATIVE) mg/dL Urine Ketones (NEGATIVE) mg/dL Urine Occult Blood (NEGATIVE) Urine Nitrite (NEGATIVE) Urine Bilirubin (NEGATIVE) Urine Urobilinogen (<2.0) EU/dL Ur Leukocyte Esterase (NEGATIVE) Urine RBC (0-2/HPF) Urine WBC (0-5/HPF) Ur Epithelial Cells (NONE-FEW) Urine Bacteria (NEGATIVE) Urine HCG, Qual (NEGATIVE) Urine Opiates Screen (NEGATIVE) Ur Oxycodone Screen (NEGATIVE) Urine Methadone Screen (NEGATIVE) Ur Barbiturates Screen (NEGATIVE) Ur Phencyclidine Scrn (NEGATIVE) Ur Amphetamine Screen (NEGATIVE) U Methamphetamines Scrn (NEGATIVE) U Benzodiazepines Scrn (NEGATIVE) U Cocaine Metab Screen (NEGATIVE) U Marijuana (THC) Screen (NEGATIVE) Ethyl Alcohol <3 mg/dL Result Diagrams: 03/05/18 04:15 03/05/18 04:15 - Problem List (1) Pancreatitis SNOMED Code(s): 92320309 ICD Code: K85.90 - ACUTE PANCREATITIS WITHOUT NECROSIS OR INFECTION, UNSP Status: Acute Current Visit: Yes Qualifiers: Chronicity: acute Pancreatitis type: alcohol induced Acute pancreatitis complication: unspecified Qualified Code(s): K85.20 - Alcohol induced acute pancreatitis without necrosis or infection (2) Acute alcoholic pancreatitis SNOMED Code(s): 474509409 ICD Code: K85.20 - ALCOHOL INDUCED ACUTE PANCREATITIS WITHOUT NECROSIS OR INFCT Status: Acute Current Visit: No Qualifiers: Acute pancreatitis complication: no infection or necrosis Qualified Code(s) : K85.20 - Alcohol induced acute pancreatitis without necrosis or infection Problem List Initiated/Reviewed/Updated: Yes Orders Last 24hrs: Active Orders 24 hr Category Date Time Status Admission Status [Patient Status] [ADT] Routine ADT 03/05/18 13:28 Active Height and Weight [RC] UPON Care 03/05/18 09:25 Active Intake and Output [RC] Q12H Care 03/05/18 09:26 Active Up With Assistance [RC] ASDIRECTED Care 03/05/18 09:25 Active VTE/DVT Education [RC] PER UNIT ROUTINE Care 03/05/18 09:25 Active Vital Signs [RC] Q4H Care 03/05/18 09:25 Active Nothing per Oral Now Diet [DIET] Diet 03/05/18 Breakfast Active Abdomen Pelvis w Cont [CT] Stat Exams 03/05/18 04:14 Taken CBC WITH AUTO DIFF [HEME] AM Lab 03/06/18 05:11 Ordered COMPREHENSIVE METABOLIC PN,CMP [CHEM] AM Lab 03/06/18 05:11 Ordered DRUG SCREEN, URINE [URCHEM] Stat Lab 03/05/18 04:13 Ordered HCG QUALITATIVE,URINE [URCHEM] Stat Lab 03/05/18 04:13 Ordered UA W/MICROSCOPIC [URIN] Stat Lab 03/05/18 04:13 Ordered Acetaminophen [Tylenol] Med 03/05/18 09:25 Active 650 mg PO Q4H PRN Enoxaparin [Lovenox] Med 03/05/18 09:30 Active 40 mg SUBCUT Q24H Folic Acid Med 03/05/18 13:30 Active 1 mg SUBCUT DAILY HYDROmorphone [Dilaudid] Med 03/05/18 09:25 Active 0.5 mg IVPUSH Q2H PRN Ondansetron [Zofran] Med 03/05/18 09:25 Active 4 mg IVPUSH Q4H PRN Sodium Chloride 0.9% [Normal Saline] 1,000 ml Med 03/05/18 09:00 Active IV ASDIRECTED Sodium Chloride 0.9% [Saline Flush] Med 03/05/18 09:25 Active 10 ml FLUSH ASDIRECTED PRN Sodium Chloride 0.9% [Saline Flush] Med 03/05/18 09:25 Active 2.5 ml FLUSH ASDIRECTED PRN Peripheral IV Insertion Adult [OM.PC] Routine Oth 03/05/18 09:25 Ordered Saline Lock Insert [OM.PC] Routine Oth 03/05/18 09:25 Ordered Sequential Compression Device [OM.PC] Per Unit Routine Oth 03/05/18 09:26 Ordered Resuscitation Status Routine Resus Stat 03/05/18 09:25 Ordered Medication Orders Acetaminophen (Tylenol) 650 mg PO Q4H PRN PRN Reason: Pain (Mild 1-3)/fever Enoxaparin Sodium (Lovenox) 40 mg SUBCUT Q24H [facility] Last Admin: 03/05/18 10:11 Dose: 40 mg Folic Acid (Folic Acid) 1 mg SUBCUT DAILY [facility] Last Admin: 03/05/18 14:12 Dose: 1 mg Hydromorphone HCl (Dilaudid) 0.5 mg IVPUSH Q2H PRN PRN Reason: Pain (severe 7-10) Last Admin: 03/05/18 12:52 Dose: 0.5 mg Admin: 03/05/18 10:19 Dose: 0.5 mg Sodium Chloride (Normal Saline) 1,000 mls @ 175 mls/hr IV ASDIRECTED [facility] Last Admin: 03/05/18 14:18 Dose: 175 mls/hr Infusion: 03/05/18 14:18 Dose: 175 mls/hr Admin: 03/05/18 09:13 Dose: 175 mls/hr Ondansetron HCl (Zofran) 4 mg IVPUSH Q4H PRN PRN Reason: Nausea/Vomiting Sodium Chloride (Saline Flush) 10 ml FLUSH ASDIRECTED PRN PRN Reason: Keep Vein Open Sodium Chloride (Saline Flush) 2.5 ml FLUSH ASDIRECTED PRN PRN Reason: Keep Vein Open Assessment/Plan Comment:: This is a 32-year-old female that is presenting with acute abdominal pain secondary to acute pancreatitis with a elevated lipase level of greater than 8300. #1. Acute pancreatitis -Patient has been made nothing by mouth, she is receiving normal saline at a rate of 175 mL per hour -Pain control with Dilaudid 0.25 mg every 2 hours as needed when necessary -Labs in the a.m. -For the patient's mass seen at the head of the pancreas we do not need to do further imaging studies during this admission stay as she has had a previous pseudocysts in the past however it is recommended that once she is stable and discharge from this current hospitalization that she have a follow-up appointment with [facility] in [place] for GI to reevaluate and possibly ercp/MRCP over there.
[2018-03-06] MEDS: HYDROmorphone 1 MG/ML Syringe IVPUSH PRN ×9 (00:17→21:30)
[2018-03-06] MEDS: Sodium Chloride 0.9% 1,000 ML IV SCH ×3 (02:20→19:34)
[2018-03-06 06:22] LABS: CHLORIDE,CL 105 mmol/L (98-107); SODIUM,NA 137 mmol/L (136-145)
[2018-03-06] MEDS: Enoxaparin 40 MG/0.4 ML Syringe SUBCUT SCH (08:29)
[2018-03-06] MEDS: Folic Acid 50 MG/10 ML MDV SUBCUT SCH (08:30)
--- NOTE | 2018-03-06 08:31 | PCM.PN ---
- General Info Date of Service: 03/06/18 Subjective Update: The patient is a 32 year old female who was admitted for pancreatitis. She reports she is doing better, her abdominal pain has improved and she is not having any nausea or vomiting. She has been NPO. She denies any chest pain or shortness of breath. - Review of Systems General: Reports: No Symptoms HEENT: Reports: No Symptoms Pulmonary: Reports: No Symptoms Cardiovascular: Reports: No Symptoms Gastrointestinal: Reports: Abdominal Pain (improving). Denies: Nausea, Vomiting Genitourinary: Reports: No Symptoms Musculoskeletal: Reports: No Symptoms Skin: Reports: No Symptoms Neurological: Reports: No Symptoms Psychiatric: Reports: No Symptoms - Patient Data Vitals - Most Recent: Last Vital Signs Temp 97.2 F 03/06/18 08:00 Pulse 68 03/06/18 08:00 Resp 18 03/06/18 08:00 BP 122/91 H 03/06/18 08:00 Pulse Ox 99 03/06/18 08:00 Weight - Most Recent: 70.307 kg I&O - Last 24 Hours: Intake & Output 03/05/18 03/06/18 03/06/18 22:59 06:59 14:59 Intake Total 1214 Output Total 250 Balance 964 Lab Results Last 24 Hours: Laboratory Results - last 24 hr 03/06/18 03/06/18 Range/Units 05:48 05:48 WBC 5.84 (4.0-11.0) K/uL RBC 3.50 L (4.30-5.90) M/uL Hgb 10.9 L (12.0-16.0) g/dL Hct 33.0 L (36.0-46.0) % MCV 94.3 (80.0-98.0) fL MCH 31.1 (27.0-32.0) pg MCHC 33.0 (31.0-37.0) g/dL RDW Std Deviation 49.7 (28.0-62.0) fl RDW Coeff of [place] 15 (11.0-15.0) % Plt Count 188 (150-400) K/uL MPV 8.40 (7.40-12.00) fL Neut % (Auto) 50.3 (48.0-80.0) % Lymph % (Auto) 38.7 (16.0-40.0) % [place] % (Auto) 9.2 (0.0-15.0) % Eos % (Auto) 1.5 (0.0-7.0) % Baso % (Auto) 0.3 (0.0-1.5) % Neut # (Auto) 2.9 (1.4-5.7) K/uL Lymph # (Auto) 2.3 (0.6-2.4) K/uL [place] # (Auto) 0.5 (0.0-0.8) K/uL Eos # (Auto) 0.1 (0.0-0.7) K/uL Baso # (Auto) 0.0 (0.0-0.1) K/uL Nucleated RBC % 0.0 /100WBC Nucleated RBCs # 0 K/uL Sodium 137 (136-145) mmol/L Potassium 3.6 (3.5-5.1) mmol/L Chloride 105 (98-107) mmol/L Carbon Dioxide 23.6 (21.0-32.0) mmol/L BUN 5 L (7.0-18.0) mg/dL Creatinine 0.6 (0.6-1.0) mg/dL Est Cr Clr Drug Dosing 117.31 mL/min Estimated GFR (MDRD) > 60.0 ml/min Glucose 92 (74-106) mg/dL Calcium 7.8 L (8.5-10.1) mg/dL Total Bilirubin 0.4 (0.2-1.0) mg/dL AST 28 (15-37) IU/L ALT 21 (14-63) IU/L Alkaline Phosphatase 76 (46-116) U/L Total Protein 6.1 L (6.4-8.2) g/dL Albumin 2.8 L (3.4-5.0) g/dL Globulin 3.3 (2.0-3.5) g/dL Albumin/Globulin Ratio 0.9 L (1.3-2.8) Med Orders - Current: Current Medications Acetaminophen (Tylenol) 650 mg PO Q4H PRN PRN Reason: Pain (Mild 1-3)/fever Enoxaparin Sodium (Lovenox) 40 mg SUBCUT Q24H CARLITOS Last Admin: 03/05/18 10:11 Dose: 40 mg Folic Acid (Folic Acid) 1 mg SUBCUT DAILY [facility] Last Admin: 03/05/18 14:12 Dose: 1 mg Hydromorphone HCl (Dilaudid) 0.5 mg IVPUSH Q2H PRN PRN Reason: Pain (severe 7-10) Last Admin: 03/06/18 05:57 Dose: 0.25 mg Hydromorphone HCl (Dilaudid) 0.25 mg IVPUSH Q2H PRN PRN Reason: Pain Last Admin: 03/06/18 08:22 Dose: 0.25 mg Sodium Chloride (Normal Saline) 1,000 mls @ 175 mls/hr IV ASDIRECTED CARLITOS Last Infusion: 03/06/18 02:38 Dose: 175 mls/hr Ondansetron HCl (Zofran) 4 mg IVPUSH Q4H PRN PRN Reason: Nausea/Vomiting Sodium Chloride (Saline Flush) 10 ml FLUSH ASDIRECTED PRN PRN Reason: Keep Vein Open Sodium Chloride (Saline Flush) 2.5 ml FLUSH ASDIRECTED PRN PRN Reason: Keep Vein Open Discontinued Medications Hydromorphone HCl (Dilaudid) 1 mg IVPUSH ONETIME ONE Stop: 03/05/18 07:26 Last Admin: 03/05/18 07:32 Dose: 1 mg Sodium Chloride (Normal Saline) 1,000 mls @ 999 mls/hr IV .Bolus ONE Stop: 03/05/18 05:12 Last Admin: 03/05/18 04:25 Dose: 999 mls/hr Thiamine HCl 100 mg/ Sodium (Chloride) 101 mls @ 202 mls/hr IV DAILY ONE Stop: 03/05/18 14:09 Last Admin: 03/05/18 14:12 Dose: 202 mls/hr Iopamidol (Isovue Multipack-370 (76%)) 100 ml IVPUSH ONETIME STA Stop: 03/05/18 05:27 Last Admin: 03/05/18 05:26 Dose: 100 ml Ketorolac Tromethamine (Toradol) 30 mg IVPUSH ONETIME ONE Stop: 03/05/18 06:21 Last Admin: 03/05/18 06:27 Dose: 30 mg Morphine Sulfate (Morphine) 2 mg IVPUSH Q2H PRN PRN Reason: Pain (severe 7-10) Stop: 03/06/18 09:26 - Exam General: Alert, Oriented, Cooperative, No Acute Distress Cardiovascular: Regular Rate, Regular Rhythm GI/Abdominal Exam: Normal Bowel Sounds, Soft, No Distention, Tender (upper quadrants). No: Guarding, Rigid, Rebound Extremities: Normal Inspection, No Pedal Edema Skin: Warm, Dry Neurological: No New Focal Deficit Psy/Mental Status: Alert, Normal Affect, Normal Mood - Problem List Review Problem List Initiated/Reviewed/Updated: Yes - Plan Plan:: 1. Acute Pancreatitis- continue IV fluids with NPO except ice chips are fine. Patient's pain is under control with dilaudid 0.25 mg every 2 hours. She is needing the pain medications every 2-3 hours. We will try to space her pain medications out to 4 hours and see how shes does. If her abdominal pain is improving and she is not needing as much pain medications then we can advance her diet but if she is still requiring meds then she needs to stay NPO. 2. 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
[2018-03-06] MEDS ORDERED: HYDROmorphone 1 MG/ML Syringe IVPUSH PRN (12:41)
[2018-03-07] MEDS: HYDROmorphone 1 MG/ML Syringe IVPUSH PRN ×3 (00:44→08:43)
[2018-03-07] MEDS: Sodium Chloride 0.9% 1,000 ML IV SCH ×2 (00:48→06:45)
[2018-03-07 05:47] LABS: CHLORIDE,CL 104 mmol/L (98-107); SODIUM,NA 136 mmol/L (136-145)
[2018-03-07] MEDS: Folic Acid 50 MG/10 ML MDV SUBCUT SCH (08:44)
[2018-03-07] MEDS: Enoxaparin 40 MG/0.4 ML Syringe SUBCUT SCH (08:45)
--- NOTE | 2018-03-07 10:16 | PCM.DCSUM1 ---
Discharge Summary - Discharge Data Discharge Disposition: Home, Self-Care 01 Condition: Stable - Discharge Diagnosis/Problem(s) (1) Pancreatitis SNOMED Code(s): 64206740 ICD Code: K85.90 - ACUTE PANCREATITIS WITHOUT NECROSIS OR INFECTION, UNSP Status: Acute Current Visit: Yes Qualifiers: Chronicity: acute Pancreatitis type: alcohol induced Acute pancreatitis complication: unspecified Qualified Code(s): K85.20 - Alcohol induced acute pancreatitis without necrosis or infection (2) Acute alcoholic pancreatitis SNOMED Code(s): 380367677 ICD Code: K85.20 - ALCOHOL INDUCED ACUTE PANCREATITIS WITHOUT NECROSIS OR INFCT Status: Acute Current Visit: No Qualifiers: Acute pancreatitis complication: no infection or necrosis Qualified Code(s) : K85.20 - Alcohol induced acute pancreatitis without necrosis or infection - Discharge Plan Home Medications: Home Meds . [No Known Home Meds] 03/05/18 [History] Patient Handouts: Acute Pancreatitis, [id number] Referrals: PCP,None [Primary Care Provider] - - Patient Data Vitals - Most Recent: Last Vital Signs Temp 35.9 C 03/07/18 08:00 Pulse 79 03/07/18 08:00 Resp 16 03/07/18 08:00 BP 133/95 H 03/07/18 08:00 Pulse Ox 100 03/07/18 08:00 Weight - Most Recent: 70.307 kg I&O - Last 24 hours: Intake & Output 03/06/18 03/07/18 03/07/18 22:59 06:59 14:59 Intake Total 2040 Output Total 2100 Balance -60 Lab Results - Last 24 hrs: Laboratory Results - last 24 hr 03/07/18 03/07/18 Range/Units 05:00 05:00 WBC 5.83 (4.0-11.0) K/uL RBC 3.69 L (4.30-5.90) M/uL Hgb 11.3 L (12.0-16.0) g/dL Hct 34.7 L (36.0-46.0) % MCV 94.0 (80.0-98.0) fL MCH 30.6 (27.0-32.0) pg MCHC 32.6 (31.0-37.0) g/dL RDW Std Deviation 48.5 (28.0-62.0) fl RDW Coeff of [place] 14 (11.0-15.0) % Plt Count 203 (150-400) K/uL MPV 8.70 (7.40-12.00) fL Neut % (Auto) 50.6 (48.0-80.0) % Lymph % (Auto) 35.8 (16.0-40.0) % [place] % (Auto) 11.8 (0.0-15.0) % Eos % (Auto) 1.5 (0.0-7.0) % Baso % (Auto) 0.3 (0.0-1.5) % Neut # (Auto) 2.9 (1.4-5.7) K/uL Lymph # (Auto) 2.1 (0.6-2.4) K/uL [place] # (Auto) 0.7 (0.0-0.8) K/uL Eos # (Auto) 0.1 (0.0-0.7) K/uL Baso # (Auto) 0.0 (0.0-0.1) K/uL Nucleated RBC % 0.0 /100WBC Nucleated RBCs # 0 K/uL Sodium 136 (136-145) mmol/L Potassium 3.6 (3.5-5.1) mmol/L Chloride 104 (98-107) mmol/L Carbon Dioxide 21.6 (21.0-32.0) mmol/L BUN 3 L (7.0-18.0) mg/dL Creatinine 0.5 L (0.6-1.0) mg/dL Est Cr Clr Drug Dosing 140.78 mL/min Estimated GFR (MDRD) > 60.0 ml/min Glucose 90 (74-106) mg/dL Calcium 7.6 L (8.5-10.1) mg/dL Lipase 180 (73-393) U/L Med Orders - Current: Current Medications Acetaminophen (Tylenol) 650 mg PO Q4H PRN PRN Reason: Pain (Mild 1-3)/fever Enoxaparin Sodium (Lovenox) 40 mg SUBCUT Q24H [facility] Last Admin: 03/07/18 08:45 Dose: 40 mg Folic Acid (Folic Acid) 1 mg SUBCUT DAILY [facility] Last Admin: 03/07/18 08:44 Dose: 1 mg Hydromorphone HCl (Dilaudid) 0.25 mg IVPUSH Q3H PRN PRN Reason: Pain Last Admin: 03/07/18 08:43 Dose: 0.25 mg Sodium Chloride (Normal Saline) 1,000 mls @ 175 mls/hr IV ASDIRECTED [facility]LITOS Last Admin: 03/07/18 06:45 Dose: 175 mls/hr Ondansetron HCl (Zofran) 4 mg IVPUSH Q4H PRN PRN Reason: Nausea/Vomiting Sodium Chloride (Saline Flush) 10 ml FLUSH ASDIRECTED PRN PRN Reason: Keep Vein Open Sodium Chloride (Saline Flush) 2.5 ml FLUSH ASDIRECTED PRN PRN Reason: Keep Vein Open Discontinued Medications Hydromorphone HCl (Dilaudid) 1 mg IVPUSH ONETIME ONE Stop: 03/05/18 07:26 Last Admin: 03/05/18 07:32 Dose: 1 mg Hydromorphone HCl (Dilaudid) 0.5 mg IVPUSH Q2H PRN PRN Reason: Pain (severe 7-10) Last Admin: 03/06/18 05:57 Dose: 0.25 mg Hydromorphone HCl (Dilaudid) 0.25 mg IVPUSH Q2H PRN PRN Reason: Pain Last Admin: 03/06/18 12:38 Dose: 0.25 mg Hydromorphone HCl (Dilaudid) 0.25 mg IVPUSH Q4H PRN PRN Reason: Pain Sodium Chloride (Normal Saline) 1,000 mls @ 999 mls/hr IV .Bolus ONE Stop: 03/05/18 05:12 Last Admin: 03/05/18 04:25 Dose: 999 mls/hr Thiamine HCl 100 mg/ Sodium (Chloride) 101 mls @ 202 mls/hr IV DAILY ONE Stop: 03/05/18 14:09 Last Admin: 03/05/18 14:12 Dose: 202 mls/hr Iopamidol (Isovue Multipack-370 (76%)) 100 ml IVPUSH ONETIME STA Stop: 03/05/18 05:27 Last Admin: 03/05/18 05:26 Dose: 100 ml Ketorolac Tromethamine (Toradol) 30 mg IVPUSH ONETIME ONE Stop: 03/05/18 06:21 Last Admin: 03/05/18 06:27 Dose: 30 mg Morphine Sulfate (Morphine) 2 mg IVPUSH Q2H PRN PRN Reason: Pain (severe 7-10) Stop: 03/06/18 09:26
--- NOTE | 2018-03-07 17:09 | CT ---
EXAM DATE: 03/05/18 PATIENT'S AGE: 32 Patient: ALDEN BORGES Facility: [place], [place] Site . Site : 1985 Study: CT Abdomen/Pelvis [id number]/8/2018 5:26:02 AM Ordering Physician: Dieter Silva Final Report: INDICATION: Epigastric pain TECHNIQUE: CT abdomen and pelvis acquired with 100 cc Isovue 370 IV contrast. COMPARISON: November 12, 2017 FINDINGS: Lower chest: Unremarkable. Liver: Unremarkable. Spleen: Unremarkable. Pancreas: Fat stranding around the pancreatic head and proximal pancreatic body. No peripancreatic fluid collection or pancreatic calcifications. The splenic vein is patent. Suggestion of a mass lesion versus lobulation in the pancreatic head on image 61 series 201. There is a 2.2 centimeter peripancreatic lymph node on image 47 series 201. Gallbladder and bile ducts: Unremarkable. Adrenal glands: Unremarkable. Kidneys: Unremarkable. GI tract: Unremarkable. Vascular structures: Unremarkable. Lymph nodes: Unremarkable. Miscellaneous: Unremarkable. No free air or significant free fluid. Pelvic Organs: Unremarkable. Bones: Unremarkable for age. IMPRESSION: Acute pancreatitis. Questionable mass versus pancreatic parenchymal lobulation in the region of the pancreatic head as described above. Consider MR/MRCP for further characterization. No peripancreatic fluid collection, cholelithiasis, or splenic vein thrombosis. Please note that all CT scans at this facility use dose modulation, iterative reconstruction, and/or weight-based dosing when appropriate to reduce radiation dose to as low as reasonably achievable. Dictated by Meg Tirado MD @ Mar 05 2018 5:54AM (Electronic Signature) Report Signed by Proxy. RONDA
== END 2018-03-07 15:10 | disposition home or self-care (01) | DRG 440 ==
LOC: MW.ED 04:00 → MW.MS 08:09 → OBSVTOIN 13:28
PROVIDERS: ADMIT Internal Medicine; ATTEND Internal Medicine
DX: K85.20 Alcohol induced acute pancreatitis without necrosis or infection (principal); K86.9 Disease of pancreas, unspecified; F10.10 Alcohol abuse, uncomplicated
CPT/HCPCS: 36415; 74177; 74177-26; 80048; 80053; 80305-QW; 81001; 81025; 83690; 85025; 96361; 96374; 96375; 99285-25; G0480; J1170; J1650; J1885; J3411; J7030; J7040; Q9967

== ENCOUNTER 2018-07-17 19:03 | Emergency (ER) | payer MEDICAID, OTHER ==
[2018-07-17] MEDS ORDERED: Sodium Chloride 0.9% 1,000 ML IV ONE (19:10)
[2018-07-17] MEDS ORDERED: Ondansetron 4 MG/2 ML SDV IVPUSH ONE (19:10)
--- NOTE | 2018-07-17 19:11 | EDM.PDOC ---
ED HPI GENERAL MEDICAL PROBLEM - General Chief Complaint: Abdominal Pain Stated Complaint: ABDOMINAL PAIN Time Seen by Provider: 07/17/18 19:10 Source of Information: Reports: Patient - History of Present Illness INITIAL COMMENTS - FREE TEXT/NARRATIVE: HISTORY AND PHYSICAL: History of present illness: [Patient with history of pancreatitis and possible pancreatic mass, presents with epigastric pain and nausea no fever chills sweats no vomiting no chest pain shortness breath headache dizziness palpitation no bowel or urine symptoms She states she has not been drinking alcohol as of late Does have follow-up scheduled with a specialist to address the pancreatic lesion discovered on MRI of April however she has a new job and her insurance will not be in effect until July 29 and she is declining any imaging or hospital stay at this time Review of systems: As per history of present illness and below otherwise all systems reviewed and negative. Past medical history: As per history of present illness and as reviewed below otherwise noncontributory. Surgical history: As per history of present illness and as reviewed below otherwise noncontributory. Social history: No reported history of drug or alcohol abuse. Family history: As per history of present illness and as reviewed below otherwise noncontributory. Physical exam: HEENT: Atraumatic, normocephalic, pupils reactive, negative for conjunctival pallor or scleral icterus, mucous membranes moist, throat clear, neck supple, nontender, trachea midline. Lungs: Clear to auscultation, breath sounds equal bilaterally, chest nontender. Heart: S1S2, regular, negative for clicks, rubs, or JVD. Abdomen: Soft, nondistendepigastric tenderness on deep palpationtive for masses or hepatosplenomegaly. Negative for costovertebral tenderness. Pelvis: Stable nontender. Genitourinary: Deferred. Rectal: Deferred. Extremities: Atraumatic, negative for cords or calf pain. Neurovascular unremarkable. Neuro: Awake, alert, oriented. Cranial nerves II through XII unremarkable. Cerebellum unremarkable. Motor and sensory unremarkable throughout. Exam nonfocal. Diagnostics: [CBC CMP UA lipase hCG] Patient refused imaging Therapeutics: []Normal saline Zofran Morphine 2 mg IV Proton X 80 mg IV Patient was offered admission and refused as above she is tolerating diet will require some pain medication she is advised return if she develops fever intractable vomiting or intractable pain [place] Zofran Impression: Pancreatitis definitive disposition and diagnosis as appropriate pending reevaluation and review of above. epigastric Pain Score (Numeric/FACES): 9 - Related Data Allergies Allergy/AdvReac Type Severity Reaction Status Date / Time No Known Allergies Allergy Verified 07/17/18 19:18 Home Meds: Home Meds . [No Known Home Meds] 07/17/18 [History] Past Medical History - Past Health History Medical/Surgical History: Denies Medical/Surgical History HEENT History: Reports: None Cardiovascular History: Reports: None Respiratory History: Reports: None Gastrointestinal History: Reports: Pancreatitis Genitourinary History: Reports: None [employer] History: Reports: Other (See Below) Musculoskeletal History: Reports: None Neurological History: Reports: None Psychiatric History: Reports: Addiction Other Psychiatric History: ETOH Endocrine/Metabolic History: Reports: None Hematologic History: Reports: None Immunologic History: Reports: None Oncologic (Cancer) History: Reports: None Dermatologic History: Reports: None - Infectious Disease History Infectious Disease History: Reports: Chicken Pox - Past Surgical History Head Surgeries/Procedures: Reports: None HEENT Surgical History: Reports: None Cardiovascular Surgical History: Reports: None Respiratory Surgical History: Reports: None GI Surgical History: Reports: None Female Surgical History: Reports: None Endocrine Surgical History: Reports: None Neurological Surgical History: Reports: None Musculoskeletal Surgical History: Reports: None Oncologic Surgical History: Reports: None Dermatological Surgical History: Reports: None Social & Family History - Family History Family Medical History: Noncontributory Cardiac: Reports: [facility] - Caffeine Use Caffeine Use: Reports: Soda - Living Situation & Occupation Living situation: Reports: Single Occupation: Unemployed ED ROS GENERAL - Review of Systems Review Of Systems: See Below ED EXAM, GENERAL - Physical Exam Exam: See Below Course - Vital Signs Last Recorded V/S: Last Vital Signs Temp 97 F 07/17/18 19:05 Pulse 86 07/17/18 19:05 Resp 16 07/17/18 19:05 BP 147/113 H 07/17/18 19:05 Pulse Ox 98 07/17/18 19:05 - Orders/Labs/Meds Labs: Laboratory Tests 07/17/18 07/17/18 07/17/18 Range/Units 19:15 19:15 19:15 WBC 12.38 H (4.0-11.0) K/uL RBC 4.61 (4.30-5.90) M/uL Hgb 14.0 (12.0-16.0) g/dL Hct 41.4 (36.0-46.0) % MCV 89.8 (80.0-98.0) fL MCH 30.4 (27.0-32.0) pg MCHC 33.8 (31.0-37.0) g/dL RDW Std Deviation 41.3 (28.0-62.0) fl RDW Coeff of [place] 13 (11.0-15.0) % Plt Count 302 (150-400) K/uL MPV 9.20 (7.40-12.00) fL Neut % (Auto) 61.1 (48.0-80.0) % Lymph % (Auto) 29.6 (16.0-40.0) % [place] % (Auto) 8.0 (0.0-15.0) % Eos % (Auto) 1.1 (0.0-7.0) % Baso % (Auto) 0.2 (0.0-1.5) % Neut # (Auto) 7.6 H (1.4-5.7) K/uL Lymph # (Auto) 3.7 H (0.6-2.4) K/uL [place] # (Auto) 1.0 H (0.0-0.8) K/uL Eos # (Auto) 0.1 (0.0-0.7) K/uL Baso # (Auto) 0.0 (0.0-0.1) K/uL Nucleated RBC % 0.0 /100WBC Nucleated RBCs # 0 K/uL Sodium 137 (136-145) mmol/L Potassium 3.1 L (3.5-5.1) mmol/L Chloride 101 (98-107) mmol/L Carbon Dioxide 24.6 (21.0-32.0) mmol/L BUN 11 (7.0-18.0) mg/dL Creatinine 0.7 (0.6-1.0) mg/dL Est Cr Clr Drug Dosing 99.63 mL/min Estimated GFR (MDRD) > 60.0 ml/min Glucose 115 H (74-106) mg/dL Calcium 9.5 (8.5-10.1) mg/dL Total Bilirubin 0.5 (0.2-1.0) mg/dL AST 20 (15-37) IU/L ALT 31 (14-63) IU/L Alkaline Phosphatase 103 (46-116) U/L Total Protein 8.0 (6.4-8.2) g/dL Albumin 3.9 (3.4-5.0) g/dL Globulin 4.1 H (2.6-4.0) g/dL Albumin/Globulin Ratio 1.0 (0.9-1.6) Lipase 1059 H (73-393) U/L Urine Color YELLOW Urine Appearance HAZY Urine pH 6.0 (5.0-8.0) Ur Specific [place] >= 1.030 (1.001-1.035) Urine Protein TRACE H (NEGATIVE) mg/dL Urine Glucose (UA) NEGATIVE (NEGATIVE) mg/dL Urine Ketones NEGATIVE (NEGATIVE) mg/dL Urine Occult Blood SMALL H (NEGATIVE) Urine Nitrite NEGATIVE (NEGATIVE) Urine Bilirubin SMALL H (NEGATIVE) Urine Ictotest NEGATIVE Urine Urobilinogen 0.2 (<2.0) EU/dL Ur Leukocyte Esterase NEGATIVE (NEGATIVE) Urine RBC 1-2 (0-2/HPF) Urine WBC 1-2 (0-5/HPF) Ur Epithelial Cells FEW (NONE-FEW) Calcium Oxalate Crystal FEW (NEGATIVE) Urine Bacteria 1+ H (NEGATIVE) Urine HCG, Qual (NEGATIVE) 07/17/18 Range/Units 19:15 WBC (4.0-11.0) K/uL RBC (4.30-5.90) M/uL Hgb (12.0-16.0) g/dL Hct (36.0-46.0) % MCV (80.0-98.0) fL MCH (27.0-32.0) pg MCHC (31.0-37.0) g/dL RDW Std Deviation (28.0-62.0) fl RDW Coeff of [place] (11.0-15.0) % Plt Count (150-400) K/uL MPV (7.40-12.00) fL Neut % (Auto) (48.0-80.0) % Lymph % (Auto) (16.0-40.0) % [place] % (Auto) (0.0-15.0) % Eos % (Auto) (0.0-7.0) % Baso % (Auto) (0.0-1.5) % Neut # (Auto) (1.4-5.7) K/uL Lymph # (Auto) (0.6-2.4) K/uL [place] # (Auto) (0.0-0.8) K/uL Eos # (Auto) (0.0-0.7) K/uL Baso # (Auto) (0.0-0.1) K/uL Nucleated RBC % /100WBC Nucleated RBCs # K/uL Sodium (136-145) mmol/L Potassium (3.5-5.1) mmol/L Chloride (98-107) mmol/L Carbon Dioxide (21.0-32.0) mmol/L BUN (7.0-18.0) mg/dL Creatinine (0.6-1.0) mg/dL Est Cr Clr Drug Dosing mL/min Estimated GFR (MDRD) ml/min Glucose (74-106) mg/dL Calcium (8.5-10.1) mg/dL Total Bilirubin (0.2-1.0) mg/dL AST (15-37) IU/L ALT (14-63) IU/L Alkaline Phosphatase (46-116) U/L Total Protein (6.4-8.2) g/dL Albumin (3.4-5.0) g/dL Globulin (2.6-4.0) g/dL Albumin/Globulin Ratio (0.9-1.6) Lipase (73-393) U/L Urine Color Urine Appearance Urine pH (5.0-8.0) Ur Specific [place] (1.001-1.035) Urine Protein (NEGATIVE) mg/dL Urine Glucose (UA) (NEGATIVE) mg/dL Urine Ketones (NEGATIVE) mg/dL Urine Occult Blood (NEGATIVE) Urine Nitrite (NEGATIVE) Urine Bilirubin (NEGATIVE) Urine Ictotest Urine Urobilinogen (<2.0) EU/dL Ur Leukocyte Esterase (NEGATIVE) Urine RBC (0-2/HPF) Urine WBC (0-5/HPF) Ur Epithelial Cells (NONE-FEW) Calcium Oxalate Crystal (NEGATIVE) Urine Bacteria (NEGATIVE) Urine HCG, Qual NEGATIVE (NEGATIVE) Meds: Medications Discontinued Medications Generic Name Dose Route Start Last Admin Trade Name Freq PRN Reason Stop Dose Admin Sodium Chloride 1,000 mls @ 999 mls/hr 07/17/18 19:10 07/17/18 19:20 Normal Saline IV 07/17/18 20:10 999 mls/hr STAT ONE Administration Morphine Sulfate 2 mg 07/17/18 19:49 07/17/18 20:05 Morphine IVPUSH 07/17/18 19:50 2 mg ONETIME ONE Administration Ondansetron HCl 8 mg 07/17/18 19:10 07/17/18 19:20 Zofran IVPUSH 07/17/18 19:11 8 mg ONETIME ONE Administration Pantoprazole Sodium 80 mg 07/17/18 19:49 07/17/18 20:06 Protonix Iv IVPUSH 07/17/18 19:50 80 mg .BOLUS ONE Administration Departure - Departure Time of Disposition: 20:37 Disposition: Home, Self-Care 01 Condition: Good Clinical Impression: Recurrent pancreatitis - Discharge Information Referrals: PCP,None [Primary Care Provider] - Forms: ED Department Discharge Additional Instructions: The following information is given to patients seen in the emergency department who are being discharged to home. This information is to outline your options for follow-up care. We provide all patients seen in our emergency department with a follow-up referral. The need for follow-up, as well as the timing and circumstances, are variable depending upon the specifics of your emergency department visit. If you don't have a primary care physician on staff, we will provide you with a referral. We always advise you to contact your personal physician following an emergency department visit to inform them of the circumstance of the visit and for follow-up with them and/or the need for any referrals to a consulting specialist. The emergency department will also refer you to a specialist when appropriate. This referral assures that you have the opportunity for follow-up care with a specialist. All of these measure are taken in an effort to provide you with optimal care, which includes your follow-up. Under all circumstances we always encourage you to contact your private physician who remains a resource for coordinating your care. When calling for follow-up care, please make the office aware that this follow-up is from your recent emergency room visit. If for any reason you are refused follow-up, please contact the [facility] emergency department at and asked to speak to the emergency department charge nurse.
[2018-07-17 19:48] LABS: CHLORIDE,CL 101 mmol/L (98-107); SODIUM,NA 137 mmol/L (136-145)
[2018-07-17] MEDS ORDERED: Pantoprazole 40 MG Vial IVPUSH ONE (19:49)
[2018-07-17] MEDS ORDERED: Morphine 2 MG/ML Syringe IVPUSH ONE (19:49)
== END 2018-07-17 20:50 | disposition home or self-care (01) ==
LOC: MW.ED 19:03
DX: K86.1 Other chronic pancreatitis (principal)
CPT/HCPCS: 36415; 80053; 81001; 81025; 83690; 85025; 96361; 96374; 96375; 99284; C9113; J2270; J2405; J7040

== ENCOUNTER 2018-07-18 04:45 | Observation (INO) | payer OTHER ==
[2018-07-18] MEDS ORDERED: HYDROmorphone 2 MG/ML SDV IVPUSH ONE (04:58)
--- NOTE | 2018-07-18 04:59 | EDM.PDOC ---
ED HPI GENERAL MEDICAL PROBLEM - General Chief Complaint: Abdominal Pain Stated Complaint: PANCREATITIS Time Seen by Provider: 07/18/18 04:57 Source of Information: Reports: Patient - History of Present Illness INITIAL COMMENTS - FREE TEXT/NARRATIVE: HISTORY AND PHYSICAL: History of present illness: [Patient was in previously with pancreatitis she has a history of pancreatitis with known lesion on the pancreatic head and MRI is on file from April with these details she has specialist exam July 30 She declined admission previously return for intractable pain Fever nausea vomiting chills sweats ] Review of systems: As per history of present illness and below otherwise all systems reviewed and negative. Past medical history: As per history of present illness and as reviewed below otherwise noncontributory. Surgical history: As per history of present illness and as reviewed below otherwise noncontributory. Social history: No reported history of drug or alcohol abuse. Family history: As per history of present illness and as reviewed below otherwise noncontributory. Physical exam: HEENT: Atraumatic, normocephalic, pupils reactive, negative for conjunctival pallor or scleral icterus, mucous membranes moist, throat clear, neck supple, nontender, trachea midline. Lungs: Clear to auscultation, breath sounds equal bilaterally, chest nontender. Heart: S1S2, regular, negative for clicks, rubs, or JVD. Abdomen: Soft, nondistended, nontender. Negative for masses or hepatosplenomegaly. Negative for costovertebral tenderness. Pelvis: Stable nontender. Genitourinary: Deferred. Rectal: Deferred. Extremities: Atraumatic, negative for cords or calf pain. Neurovascular unremarkable. Neuro: Awake, alert, oriented. Cranial nerves II through XII unremarkable. Cerebellum unremarkable. Motor and sensory unremarkable throughout. Exam nonfocal. Diagnostics: [CBC CMP UA lipase on file within last 12 hours ] Therapeutics: []Normal saline 200 mL per hour Dilaudid 2 mg IV Impression: [] and cryptitis Definitive disposition and diagnosis as appropriate pending reevaluation and review of above. upper abdomen Pain Score (Numeric/FACES): 9 - Related Data Allergies Allergy/AdvReac Type Severity Reaction Status Date / Time No Known Allergies Allergy Verified 07/18/18 04:55 Home Meds: Home Meds . [No Known Home Meds] 07/17/18 [History] Past Medical History - Past Health History Medical/Surgical History: Denies Medical/Surgical History HEENT History: Reports: None Cardiovascular History: Reports: None Respiratory History: Reports: None Gastrointestinal History: Reports: Pancreatitis Genitourinary History: Reports: None [employer] History: Reports: Other (See Below) Musculoskeletal History: Reports: None Neurological History: Reports: None Psychiatric History: Reports: Addiction Other Psychiatric History: ETOH Endocrine/Metabolic History: Reports: None Hematologic History: Reports: None Immunologic History: Reports: None Oncologic (Cancer) History: Reports: None Dermatologic History: Reports: None - Infectious Disease History Infectious Disease History: Reports: Chicken Pox - Past Surgical History Head Surgeries/Procedures: Reports: None HEENT Surgical History: Reports: None Cardiovascular Surgical History: Reports: None Respiratory Surgical History: Reports: None GI Surgical History: Reports: None Female Surgical History: Reports: None Endocrine Surgical History: Reports: None Neurological Surgical History: Reports: None Musculoskeletal Surgical History: Reports: None Oncologic Surgical History: Reports: None Dermatological Surgical History: Reports: None Social & Family History - Family History Family Medical History: Noncontributory Cardiac: Reports: [place] - Tobacco Use Smoking Status *Q: Never Smoker - Caffeine Use Caffeine Use: Reports: Soda - Recreational Drug Use Recreational Drug Use: No - Living Situation & Occupation Living situation: Reports: Single Occupation: Unemployed ED ROS GENERAL - Review of Systems Review Of Systems: See Below ED EXAM, GENERAL - Physical Exam Exam: See Below Course - Vital Signs Last Recorded V/S: Last Vital Signs Temp 96.3 F 07/18/18 04:50 Pulse 97 07/18/18 04:50 Resp 18 07/18/18 04:50 BP 146/107 H 07/18/18 04:50 Pulse Ox 99 07/18/18 04:50 - Orders/Labs/Meds Orders: Active Orders 24 hr Category Date Time Status Sodium Chloride 0.9% [Normal Saline] 1,000 ml Med 07/18/18 05:00 Ordered IV STAT Medication Orders Sodium Chloride (Normal Saline) 1,000 mls @ 200 mls/hr IV STAT CARLITOS Meds: Medications Generic Name Dose Route Start Last Admin Trade Name Freq PRN Reason Stop Dose Admin Sodium Chloride 1,000 mls @ 200 mls/hr 07/18/18 05:00 Normal Saline IV STAT CARLITOS Discontinued Medications Generic Name Dose Route Start Last Admin Trade Name Freq PRN Reason Stop Dose Admin Hydromorphone HCl 2 mg 07/18/18 04:58 Dilaudid IVPUSH 07/18/18 04:59 ONETIME ONE Ondansetron HCl 8 mg 07/18/18 05:00 Zofran IVPUSH 07/18/18 05:01 ONETIME ONE Departure - Departure Time of Disposition: 05:03 Disposition: Refer to Observation Condition: Fair Clinical Impression: Pancreatitis Qualifiers: Chronicity: acute Pancreatitis type: alcohol induced Acute pancreatitis complication: unspecified Qualified Code(s): K85.20 - Alcohol induced acute pancreatitis without necrosis or infection - Discharge Information Referrals: PCP,None [Primary Care Provider] - Forms: ED Department Discharge - My Orders Last 24 Hours: My Active Orders 07/18/18 05:00 Sodium Chloride 0.9% [Normal Saline] 1,000 ml IV STAT - Assessment/Plan Last 24 Hours: My Active Orders 07/18/18 05:00 Sodium Chloride 0.9% [Normal Saline] 1,000 ml IV STAT
[2018-07-18] MEDS ORDERED: Ondansetron 4 MG/2 ML SDV IVPUSH ONE (05:00)
[2018-07-18] MEDS: Sodium Chloride 0.9% 1,000 ML IV SCH ×3 (05:05→20:34)
[2018-07-18] MEDS ORDERED: HYDROmorphone 2 MG/ML Syringe ONE (05:05)
[2018-07-18] MEDS ORDERED: HYDROmorphone 2 MG/ML Syringe IVPUSH ONE (05:13)
[2018-07-18] MEDS ORDERED: HYDROmorphone 1 MG/ML Syringe IVPUSH PRN (07:53)
[2018-07-18] MEDS ORDERED: Sodium Chloride 0.9% 1,000 ML IV ONE (08:02)
--- NOTE | 2018-07-18 08:03 | PCM.HP ---
Addendum entered and electronically signed by Iraida Bishop NP 07/18/18 12:28 : Reviewed notes from [facility]. 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 Providers there contacted Dr Nova who recommended hydration and treatment there. If symptoms worsen he would recommend MRI/ MRCP of abdomen but that could also be done at her follow up with him in early July. 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 She was evaluated and noted to likely have acute flare of pancreatitis but refused admission due to no insurance. She reports she went home and the pain got so bad that she returned to the ED asking for admission. She denies fever, chills, neck pain. NO chest pain or SOB. She reports the pain is sharp in nature to her epigastric region with radiation to her back. She denies diarrhea or constipation and no black or bloody BMs. She reports she was diagnoses in [place] with a blood clot in her liver and was started on Xarelto in the middle of May. She reports she does continue to drink some, last drink was 1 week ago. In the ED leukocytosis noted at 12,000. Lipase 1059. HCG negative. She will be admitted with acute on chronic pancreatitis. upper abdomen Pain Score (Numeric/FACES): 9 - Related Data Allergies/Adverse Reactions: Allergies Allergy/AdvReac Type Severity Reaction Status Date / Time No Known Allergies Allergy Verified 07/18/18 04:55 Home Medications: Home Meds Rivaroxaban [Xarelto] 15 mg PO BID 07/18/18 [History] Past Medical History - Past Health History Medical/Surgical History: Denies Medical/Surgical History HEENT History: Reports: None Cardiovascular History: Reports: Blood Clots/VTE/DVT (liver thrombis?). Denies : Hypertension Respiratory History: Reports: None. Denies: COPD Gastrointestinal History: Reports: Pancreatitis Genitourinary History: Reports: None OFFC SPEC History: Reports: Other (See Below) Musculoskeletal History: Reports: None Neurological History: Reports: None Psychiatric History: Reports: Addiction Other Psychiatric History: ETOH Endocrine/Metabolic History: Reports: None Hematologic History: Reports: None Immunologic History: Reports: None Oncologic (Cancer) History: Reports: None Dermatologic History: Reports: None - Infectious Disease History Infectious Disease History: Reports: Chicken Pox - Past Surgical History Head Surgeries/Procedures: Reports: None HEENT Surgical History: Reports: None Cardiovascular Surgical History: Reports: None Respiratory Surgical History: Reports: None GI Surgical History: Reports: None Female Surgical History: Reports: None Endocrine Surgical History: Reports: None Neurological Surgical History: Reports: None Musculoskeletal Surgical History: Reports: None Oncologic Surgical History: Reports: None Dermatological Surgical History: Reports: None Social & Family History - Family History Family Medical History: Noncontributory Cardiac: Reports: [place] - Tobacco Use Smoking Status *Q: Never Smoker Second Hand Smoke Exposure: No - Caffeine Use Caffeine Use: Reports: Soda - Alcohol Use Alcohol Use History: Yes Days Per Week of Alcohol Use: 0 Number of Drinks Per Day: 2 Total Drinks Per Week: 0 Alcohol Use Frequency: Binges (cutting back,), Daily - Recreational Drug Use Recreational Drug Use: No - Living Situation & Occupation Living situation: Reports: Single Occupation: Unemployed H&P Review of Systems - Review of Systems: Review Of Systems: See Below General: Reports: No Symptoms. Denies: Fever, Chills, Malaise, Weakness Pulmonary: Reports: No Symptoms. Denies: Shortness of Breath, Cough, Sputum Cardiovascular: Reports: No Symptoms. Denies: Chest Pain, Edema Gastrointestinal: Reports: Abdominal Pain, Decreased Appetite, Nausea. Denies: Black Stool, Bloody Stool, Constipation, Diarrhea Genitourinary: Reports: No Symptoms. Denies: Dysuria, Frequency, Burning Musculoskeletal: Reports: No Symptoms Skin: Reports: No Symptoms Psychiatric: Reports: No Symptoms Neurological: Reports: No Symptoms Hematologic/Lymphatic: Reports: No Symptoms Immunologic: Reports: No Symptoms Exam - Exam Exam: See Below - Vital Signs Vital Signs: Last Vital Signs Temp 97.3 F 07/18/18 07:53 Pulse 65 07/18/18 07:53 Resp 17 07/18/18 07:53 BP 163/107 H 07/18/18 07:53 Pulse Ox 99 07/18/18 07:53 Weight: 71.713 kg - Exam General: Alert, Oriented, Cooperative HEENT: Conjunctiva Clear, Posterior Pharynx Clear Neck: Supple, Trachea Midline Lungs: Clear to Auscultation, Normal Respiratory Effort Cardiovascular: Regular Rate, Regular Rhythm, Normal S1, Normal S2 GI/Abdominal Exam: Normal Bowel Sounds, Soft, Distended, Tender (epigastric) Extremities: Normal Inspection, Normal Range of Motion, Non-Tender, No Pedal Edema, Normal Capillary Refill Neuro Extensive - Mental Status: Alert, Oriented x3, Normal Mood/Affect, Normal Cognition Neuro Extensive - Motor, Sensory, Reflexes: CN II-XII Intact - Patient Data Result Diagrams: 07/18/18 08:10 07/18/18 08:10 - Problem List (1) Acute on chronic pancreatitis SNOMED Code(s): 357633597 ICD Code: K85.90 - ACUTE PANCREATITIS WITHOUT NECROSIS OR INFECTION, UNSP; K86.1 - OTHER CHRONIC PANCREATITIS Status: Acute Current Visit: No Problem List Initiated/Reviewed/Updated: Yes Orders Last 24hrs: Active Orders 24 hr Category Date Time Status Admission Status [Patient Status] [ADT] Stat ADT 07/18/18 05:03 Active Intake and Output [RC] QSHIFT Care 07/18/18 07:54 Active May Shower [RC] ASDIRECTED Care 07/18/18 07:53 Active Oxygen Therapy [RC] PRN Care 07/18/18 07:53 Active Up ad [place] [RC] ASDIRECTED Care 07/18/18 07:53 Active VTE/DVT Education [RC] PER UNIT ROUTINE Care 07/18/18 07:53 Active Vital Signs [RC] Q4H Care 07/18/18 07:53 Active Nothing Per Oral Diet [DIET] Diet 07/18/18 Lunch Active CBC WITH AUTO DIFF [HEME] AM Lab 07/19/18 05:11 Ordered CBC WITH AUTO DIFF [HEME] AM Lab 07/20/18 05:11 Ordered CBC WITH AUTO DIFF [HEME] AM Lab 07/21/18 05:11 Ordered CBC WITH AUTO DIFF [HEME] Routine Lab 07/18/18 07:58 Ordered COMPREHENSIVE METABOLIC PN,CMP [CHEM] AM Lab 07/19/18 05:11 Ordered COMPREHENSIVE METABOLIC PN,CMP [CHEM] AM Lab 07/20/18 05:11 Ordered COMPREHENSIVE METABOLIC PN,CMP [CHEM] AM Lab 07/21/18 05:11 Ordered COMPREHENSIVE METABOLIC PN,CMP [CHEM] Routine Lab 07/18/18 07:58 Ordered LIPASE [CHEM] Routine Lab 07/18/18 07:58 Ordered MAGNESIUM [CHEM] Routine Lab 07/18/18 07:58 Ordered HYDROmorphone [Dilaudid] Med 07/18/18 08:01 Ordered 2 mg IVPUSH Q2H PRN Ondansetron [Zofran] Med 07/18/18 07:53 Active 4 mg IVPUSH Q4H PRN Pantoprazole [ProTONIX IV] Med 07/18/18 08:00 Active 40 mg IV Q24H Sodium Chloride 0.9% [Normal Saline] 1,000 ml Med 07/18/18 08:02 Ordered IV .Bolus Sodium Chloride 0.9% [Normal Saline] 1,000 ml Med 07/18/18 05:00 Active IV STAT Resuscitation Status Routine Resus Stat 07/18/18 07:53 Ordered Medication Orders Hydromorphone HCl (Dilaudid) 2 mg IVPUSH Q2H PRN PRN Reason: Pain (severe 7-10) Sodium Chloride (Normal Saline) 1,000 mls @ 200 mls/hr IV STAT CARLITOS Last Admin: 07/18/18 05:05 Dose: 200 mls/hr Sodium Chloride (Normal Saline) 1,000 mls @ 999 mls/hr IV .Bolus ONE Stop: 07/18/18 09:02 Ondansetron HCl (Zofran) 4 mg IVPUSH Q4H PRN PRN Reason: Nausea Pantoprazole Sodium (Protonix Iv) 40 mg IV Q24H CARLITOS Assessment/Plan Comment:: This 33 year old female admitted with acute on chronic pancreatitis 1. Acute on chronic pancreatitis: Give 1 L bolus now. Then continue NS 200. Dilaudid for pain control, Zofran for nausea. Bowel rest for now. No imaging for now, if no improvement noted may consider re-imaging. 2. Liver thrombis: Will obtain records from [place], [place]. Continue Xarelto with sips of water. VTE prophylaxis: Continue Xarelto. Dispo: 1-3 days. Narcotic report printed and placed on chart.
[2018-07-18] MEDS: Pantoprazole 40 MG Vial IV SCH (08:18)
[2018-07-18] MEDS: HYDROmorphone 2 MG/ML Syringe IVPUSH PRN ×7 (08:18→23:29)
[2018-07-18 08:57] LABS: CHLORIDE,CL 106 mmol/L (98-107); SODIUM,NA 137 mmol/L (136-145)
[2018-07-18] MEDS: Rivaroxaban 15 MG Tab PO SCH ×2 (11:04→16:59)
[2018-07-18] MEDS ORDERED: Magnesium Sulfate/Water 2 GM in Premix Bag 1 BAG IV ONE (12:01)
[2018-07-18] MEDS: Ondansetron 4 MG/2 ML SDV IVPUSH PRN ×2 (15:30→23:29)
[2018-07-19] MEDS: HYDROmorphone 2 MG/ML Syringe IVPUSH PRN ×11 (01:29→23:56)
[2018-07-19] MEDS: Sodium Chloride 0.9% 1,000 ML IV SCH ×4 (01:30→21:59)
[2018-07-19] MEDS: Ondansetron 4 MG/2 ML SDV IVPUSH PRN ×4 (05:33→19:55)
[2018-07-19 05:50] LABS: CHLORIDE,CL 107 mmol/L (98-107); SODIUM,NA 137 mmol/L (136-145)
[2018-07-19] MEDS: Pantoprazole 40 MG Vial IV SCH (07:40)
[2018-07-19] MEDS: Rivaroxaban 15 MG Tab PO SCH ×2 (07:40→17:38)
[2018-07-19] MEDS ORDERED: Temazepam 15 MG Cap PO PRN (08:45)
--- NOTE | 2018-07-19 08:50 | PCM.PN ---
- General Info Date of Service: 07/19/18 Admission Dx/Problem (Free Text): Admission Diagnosis/Problem Admission Diagnosis/Problem Pancreatitis Subjective Update: Continues to have pain, using Dilaudid when it is due. Asking if she can go home today. We discussed I would like to her to try then not using pain medication. and she would have to tolerate CL diet. No chest pain or SOB. Pain to epigastric region improving. NO fevers. Passing flatus, no BM Functional Status: Reports: Pain Controlled, Tolerating Diet, Ambulating, Urinating - Review of Systems General: Reports: No Symptoms. Denies: Fever, Weakness, Fatigue Pulmonary: Reports: No Symptoms. Denies: Shortness of Breath Cardiovascular: Reports: No Symptoms. Denies: Chest Pain Gastrointestinal: Reports: Abdominal Pain (epigastric radiating to back). Denies: Flatus, Nausea Genitourinary: Reports: No Symptoms. Denies: Dysuria, Frequency, Burning Musculoskeletal: Reports: No Symptoms Skin: Reports: No Symptoms Neurological: Reports: No Symptoms Psychiatric: Reports: No Symptoms - Patient Data Vitals - Most Recent: Last Vital Signs Temp 96.2 F 07/19/18 07:00 Pulse 84 07/19/18 07:00 Resp 17 07/19/18 07:00 BP 125/84 07/19/18 07:00 Pulse Ox 94 L 07/19/18 07:00 Weight - Most Recent: 71.713 kg I&O - Last 24 Hours: Intake & Output 07/18/18 07/19/18 07/19/18 22:59 06:59 14:59 Intake Total 4048 2373 Output Total 600 200 Balance 3448 2173 Lab Results Last 24 Hours: Laboratory Results - last 24 hr 07/18/18 07/19/18 07/19/18 Range/Units 08:10 05:03 05:03 WBC 7.11 (4.0-11.0) K/uL RBC 3.74 L (4.30-5.90) M/uL Hgb 11.1 L (12.0-16.0) g/dL Hct 34.2 L (36.0-46.0) % MCV 91.4 (80.0-98.0) fL MCH 29.7 (27.0-32.0) pg MCHC 32.5 (31.0-37.0) g/dL RDW Std Deviation 42.6 (28.0-62.0) fl RDW Coeff of [place] 13 (11.0-15.0) % Plt Count 188 (150-400) K/uL MPV 9.20 (7.40-12.00) fL Neut % (Auto) 55.1 (48.0-80.0) % Lymph % (Auto) 29.1 (16.0-40.0) % [place] % (Auto) 11.3 (0.0-15.0) % Eos % (Auto) 4.2 (0.0-7.0) % Baso % (Auto) 0.3 (0.0-1.5) % Neut # (Auto) 3.9 (1.4-5.7) K/uL Lymph # (Auto) 2.1 (0.6-2.4) K/uL [place] # (Auto) 0.8 (0.0-0.8) K/uL Eos # (Auto) 0.3 (0.0-0.7) K/uL Baso # (Auto) 0.0 (0.0-0.1) K/uL Nucleated RBC % 0.0 /100WBC Nucleated RBCs # 0 K/uL Sodium 137 137 (136-145) mmol/L Potassium 3.9 4.0 (3.5-5.1) mmol/L Chloride 106 107 (98-107) mmol/L Carbon Dioxide 22.7 22.5 (21.0-32.0) mmol/L BUN 8 3 L (7.0-18.0) mg/dL Creatinine 0.6 0.4 L (0.6-1.0) mg/dL Est Cr Clr Drug Dosing 116.24 174.36 mL/min Estimated GFR (MDRD) > 60.0 > 60.0 ml/min Glucose 109 H 78 (74-106) mg/dL Calcium 8.6 7.9 L (8.5-10.1) mg/dL Magnesium 1.6 L (1.8-2.4) mg/dL Total Bilirubin 0.5 0.6 (0.2-1.0) mg/dL AST 16 19 (15-37) IU/L ALT 27 26 (14-63) IU/L Alkaline Phosphatase 91 79 (46-116) U/L Total Protein 6.6 5.9 L (6.4-8.2) g/dL Albumin 3.2 L 2.8 L (3.4-5.0) g/dL Globulin 3.4 3.1 (2.6-4.0) g/dL Albumin/Globulin Ratio 0.9 0.9 (0.9-1.6) Lipase 2064 H 2980 H (73-393) U/L Med Orders - Current: Current Medications Hydromorphone HCl (Dilaudid) 2 mg IVPUSH Q2H PRN PRN Reason: Pain (severe 7-10) Last Admin: 07/19/18 07:40 Dose: 2 mg Sodium Chloride (Normal Saline) 1,000 mls @ 200 mls/hr IV STAT [facility] Last Admin: 07/19/18 06:45 Dose: 200 mls/hr Ondansetron HCl (Zofran) 4 mg IVPUSH Q4H PRN PRN Reason: Nausea Last Admin: 07/19/18 05:33 Dose: 4 mg Pantoprazole Sodium (Protonix Iv) 40 mg IV Q24H [facility] Last Admin: 07/19/18 07:40 Dose: 40 mg Rivaroxaban (Xarelto) 15 mg PO BIDMEALS [facility] Last Admin: 07/19/18 07:40 Dose: 15 mg Discontinued Medications Hydromorphone HCl (Dilaudid) 2 mg IVPUSH ONETIME ONE Stop: 07/18/18 04:59 Last Admin: 07/18/18 05:12 Dose: Not Given Hydromorphone HCl (Dilaudid) Confirm Administered Dose 2 mg .ROUTE .STK-MED ONE Stop: 07/18/18 05:06 Last Admin: 07/18/18 05:10 Dose: Not Given Hydromorphone HCl (Dilaudid) 2 mg IVPUSH ONETIME ONE Stop: 07/18/18 05:14 Last Admin: 07/18/18 05:14 Dose: 2 mg Hydromorphone HCl (Dilaudid) 1 mg IVPUSH Q2H PRN PRN Reason: Pain (severe 7-10) Sodium Chloride (Normal Saline) 1,000 mls @ 999 mls/hr IV .Bolus ONE Stop: 07/18/18 09:02 Last Admin: 07/18/18 08:18 Dose: 999 mls/hr Magnesium Sulfate 2 gm/ Premix 50 mls @ 50 mls/hr IV ONETIME ONE Stop: 07/18/18 13:00 Last Admin: 07/18/18 12:44 Dose: 50 mls/hr Ondansetron HCl (Zofran) 8 mg IVPUSH ONETIME ONE Stop: 07/18/18 05:01 Last Admin: 07/18/18 05:08 Dose: 8 mg - Exam General: Alert, Oriented, Cooperative, No Acute Distress Lungs: Clear to Auscultation, Normal Respiratory Effort Cardiovascular: Regular Rate, Regular Rhythm GI/Abdominal Exam: Normal Bowel Sounds, Soft, No Organomegaly, Tender ( epigastric, but pain is improved.) Extremities: Normal Inspection, Normal Range of Motion, Non-Tender, No Pedal Edema, Normal Capillary Refill Neurological: No New Focal Deficit Psy/Mental Status: Alert, Normal Affect, Normal Mood - Problem List & Annotations (1) Acute on chronic pancreatitis SNOMED Code(s): 605380224 Code(s): K85.90 - ACUTE PANCREATITIS WITHOUT NECROSIS OR INFECTION, UNSP; K86.1 - OTHER CHRONIC PANCREATITIS Status: Acute Current Visit: No (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): 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 Code(s): I81 - PORTAL VEIN THROMBOSIS Status: Chronic Current Visit: Yes - Problem List Review Problem List Initiated/Reviewed/Updated: Yes - My Orders Last 24 Hours: My Active Orders 07/18/18 07:53 May Shower [RC] ASDIRECTED Oxygen Therapy [RC] PRN Up ad [place] [RC] ASDIRECTED VTE/DVT Education [RC] PER UNIT ROUTINE Vital Signs [RC] Q4H Ondansetron [Zofran] 4 mg IVPUSH Q4H PRN Resuscitation Status Routine 07/18/18 07:54 Intake and Output [RC] Q12H 07/18/18 08:00 Pantoprazole [ProTONIX IV] 40 mg IV Q24H 07/18/18 08:01 HYDROmorphone [Dilaudid] 2 mg IVPUSH Q2H PRN 07/18/18 10:25 Communication Order [RC] ROUTINE Rivaroxaban [Xarelto] 15 mg PO BIDMEALS 07/18/18 Lunch Nothing Per Oral Diet [DIET] 07/19/18 08:45 Temazepam [Restoril] 15 mg PO BEDTIME PRN 07/20/18 05:11 CBC WITH AUTO DIFF [HEME] AM COMPREHENSIVE METABOLIC PN,CMP [CHEM] AM 07/21/18 05:11 CBC WITH AUTO DIFF [HEME] AM COMPREHENSIVE METABOLIC PN,CMP [CHEM] AM - Plan Plan:: This 33 year old female admitted with acute on chronic pancreatitis 1. Acute on chronic pancreatitis: Slow improvement of pain. Continue NS 200. Dilaudid for pain control, Zofran for nausea. Bowel rest for now. Wants to possibly go home today. Will try limit dilaudid and visit with her around lunch time. Will monitor. Lipase elevated to 2900 today. 2. SMV thrombosis: Reviewed records, continue Xarelto. VTE prophylaxis: Continue Xarelto. Dispo: 1-3 days. Narcotic report printed and placed on chart.
[2018-07-20] MEDS: HYDROmorphone 2 MG/ML Syringe IVPUSH PRN ×4 (02:08→08:26)
[2018-07-20] MEDS: Sodium Chloride 0.9% 1,000 ML IV SCH ×2 (03:05→08:28)
[2018-07-20 06:44] LABS: CHLORIDE,CL 108 mmol/L (98-107); SODIUM,NA 139 mmol/L (136-145)
[2018-07-20] MEDS: Pantoprazole 40 MG Vial IV SCH (08:26)
[2018-07-20] MEDS: Rivaroxaban 15 MG Tab PO SCH (08:26)
[2018-07-20] MEDS ORDERED: oxyCODONE 5 MG Tab PO PRN (08:34)
--- NOTE | 2018-07-20 11:17 | PCM.DCSUM1 ---
Discharge Summary - Hospital Course Brief History: This 33 year old female with pmh of alcoholic pancreatitis and new liver thrombis presented to the ED initially last evening with abdominal pain that started yesterday. She was evaluated and noted to likely have acute flare of pancreatitis but refused admission due to no insurance. She reports she went home and the pain got so bad that she returned to the ED asking for admission. She denies fever, chills, neck pain. NO chest pain or SOB. She reports the pain is sharp in nature to her epigastric region with radiation to her back. She denies diarrhea or constipation and no black or bloody BMs. She reports she was diagnoses in [place] with a blood clot in her liver and was started on Xarelto in the middle of May. She reports she does continue to drink some, last drink was 1 week ago. In the ED leukocytosis noted at 12,000. Lipase 1059. HCG negative. She will be admitted with acute on chronic pancreatitis. 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): 668976866 ICD Code: I81 - PORTAL VEIN THROMBOSIS Status: Chronic Current Visit: Yes - Patient Instructions Diet: Full Liquid Diet Activity: As Tolerated Showering/Bathing: May Shower Notify Provider of: Fever, Increased Pain, Swelling and Redness, Drainage, Nausea and/or Vomiting - Discharge Plan *PRESCRIPTION DRUG MONITORING PROGRAM REVIEWED*: Not Applicable *COPY OF PRESCRIPTION DRUG MONITORING REPORT IN PATIENT RENÉE: Not Applicable Prescriptions/Med Rec: oxyCODONE 10 mg PO Q6H PRN #15 tablet PRN Reason: Pain Home Medications: Home Meds Rivaroxaban [Xarelto] 15 mg PO BID 07/18/18 [History] oxyCODONE 10 mg PO Q6H PRN #15 tablet 07/20/18 [Rx] Oxygen Therapy Mode: Room Air Patient Handouts: What You Need to Know About Alcohol Abuse and Dependence, Adult, Acute Pancreatitis, [id number], Oxycodone tablets or capsules Referrals: Yo Bhandari MD [Resident] - 07/27/18 3:15 pm - Discharge Summary/Plan Comment DC Time >30 min.: No Discharge Summary/Plan Comment: Discharge Diagnoses: Acute on chronic pancreatitis SMV thrombosis Alcohol abuse Shellie was admitted and treated with bowel rest and IVFs and IV pain medications. Lipase elevated to 2900, now today it is at 1300. She is eager to try CL this morning, which she tolerated and is ready for discharge home. She was again encourage to refrain from alcohol use. She will be set up with PCP for follow up and she has scheduled appointment with Dr Nova in [place] on August 04. She is to continue Xarleto as perviously prescribed for SMV thrombosis. She was given Oxycodone 5 mg every 6 hrs as needed for pain, 15 tabs no refills. Continue [place] diet for next few days and encouraged to stay hydrated with water. She is to return to ED or clinic if concerns should arise. - General Info Date of Service: 07/20/18 Admission Dx/Problem (Free Text: Admission Diagnosis/Problem Admission Diagnosis/Problem Pancreatitis Subjective Update: Abdominal pain has improved, eager to try CL diet. Wanting to be discharged home. No fevers. Functional Status: Reports: Pain Controlled, Tolerating Diet, Ambulating, Urinating - Review of Systems General: Reports: No Symptoms. Denies: Weakness, Fatigue Pulmonary: Reports: No Symptoms. Denies: Shortness of Breath Cardiovascular: Reports: No Symptoms. Denies: Chest Pain Gastrointestinal: Reports: Abdominal Pain (improved) Genitourinary: Reports: No Symptoms. Denies: Dysuria, Frequency, Burning Musculoskeletal: Reports: No Symptoms Skin: Reports: No Symptoms Neurological: Reports: Tremors Psychiatric: Reports: No Symptoms - Patient Data Vitals - Most Recent: Last Vital Signs Temp 97.5 F 07/20/18 07:15 Pulse 83 07/20/18 07:15 Resp 14 07/20/18 07:15 BP 135/70 07/20/18 07:15 Pulse Ox 96 07/20/18 07:15 Weight - Most Recent: 71.713 kg I&O - Last 24 hours: Intake & Output 07/19/18 07/20/18 07/20/18 22:59 06:59 14:59 Intake Total 1100 1166 Output Total 1100 800 Balance 0 366 Lab Results - Last 24 hrs: Laboratory Results - last 24 hr 07/20/18 07/20/18 Range/Units 05:30 05:30 WBC 5.87 (4.0-11.0) K/uL RBC 3.62 L (4.30-5.90) M/uL Hgb 10.8 L (12.0-16.0) g/dL Hct 32.8 L (36.0-46.0) % MCV 90.6 (80.0-98.0) fL MCH 29.8 (27.0-32.0) pg MCHC 32.9 (31.0-37.0) g/dL RDW Std Deviation 42.0 (28.0-62.0) fl RDW Coeff of [place] 13 (11.0-15.0) % Plt Count 194 (150-400) K/uL MPV 9.20 (7.40-12.00) fL Neut % (Auto) 51.3 (48.0-80.0) % Lymph % (Auto) 29.8 (16.0-40.0) % [place] % (Auto) 12.4 (0.0-15.0) % Eos % (Auto) 6.3 (0.0-7.0) % Baso % (Auto) 0.2 (0.0-1.5) % Neut # (Auto) 3.0 (1.4-5.7) K/uL Lymph # (Auto) 1.8 (0.6-2.4) K/uL [place] # (Auto) 0.7 (0.0-0.8) K/uL Eos # (Auto) 0.4 (0.0-0.7) K/uL Baso # (Auto) 0.0 (0.0-0.1) K/uL Nucleated RBC % 0.0 /100WBC Nucleated RBCs # 0 K/uL Sodium 139 (136-145) mmol/L Potassium 3.8 (3.5-5.1) mmol/L Chloride 108 H (98-107) mmol/L Carbon Dioxide 20.7 L (21.0-32.0) mmol/L BUN 2 L (7.0-18.0) mg/dL Creatinine 0.5 L (0.6-1.0) mg/dL Est Cr Clr Drug Dosing 139.49 mL/min Estimated GFR (MDRD) > 60.0 ml/min Glucose 92 (74-106) mg/dL Calcium 8.3 L (8.5-10.1) mg/dL Total Bilirubin 0.4 (0.2-1.0) mg/dL AST 20 (15-37) IU/L ALT 22 (14-63) IU/L Alkaline Phosphatase 73 (46-116) U/L Total Protein 6.1 L (6.4-8.2) g/dL Albumin 2.8 L (3.4-5.0) g/dL Globulin 3.3 (2.6-4.0) g/dL Albumin/Globulin Ratio 0.9 (0.9-1.6) Lipase 1303 H (73-393) U/L Med Orders - Current: Current Medications Sodium Chloride (Normal Saline) 1,000 mls @ 200 mls/hr IV STAT [facility] Last Admin: 07/20/18 08:28 Dose: 200 mls/hr Ondansetron HCl (Zofran) 4 mg IVPUSH Q4H PRN PRN Reason: Nausea Last Admin: 07/19/18 19:55 Dose: 4 mg Oxycodone HCl (Oxycodone) 10 mg PO Q6H PRN PRN Reason: Pain Last Admin: 07/20/18 11:01 Dose: 10 mg Pantoprazole Sodium (Protonix Iv) 40 mg IV Q24H [facility] Last Admin: 07/20/18 08:26 Dose: 40 mg Rivaroxaban (Xarelto) 15 mg PO BIDMEALS [facility] Last Admin: 07/20/18 08:26 Dose: 15 mg Temazepam (Restoril) 15 mg PO BEDTIME PRN PRN Reason: Insomnia Last Admin: 07/19/18 21:57 Dose: 15 mg Discontinued Medications Hydromorphone HCl (Dilaudid) 2 mg IVPUSH ONETIME ONE Stop: 07/18/18 04:59 Last Admin: 07/18/18 05:12 Dose: Not Given Hydromorphone HCl (Dilaudid) Confirm Administered Dose 2 mg .ROUTE .STK-MED ONE Stop: 07/18/18 05:06 Last Admin: 07/18/18 05:10 Dose: Not Given Hydromorphone HCl (Dilaudid) 2 mg IVPUSH ONETIME ONE Stop: 07/18/18 05:14 Last Admin: 07/18/18 05:14 Dose: 2 mg Hydromorphone HCl (Dilaudid) 1 mg IVPUSH Q2H PRN PRN Reason: Pain (severe 7-10) Hydromorphone HCl (Dilaudid) 2 mg IVPUSH Q2H PRN PRN Reason: Pain (severe 7-10) Last Admin: 07/19/18 10:14 Dose: 2 mg Hydromorphone HCl (Dilaudid) 2 mg IVPUSH Q2H PRN PRN Reason: Pain Last Admin: 07/20/18 08:26 Dose: 2 mg Sodium Chloride (Normal Saline) 1,000 mls @ 999 mls/hr IV .Bolus ONE Stop: 07/18/18 09:02 Last Admin: 07/18/18 08:18 Dose: 999 mls/hr Magnesium Sulfate 2 gm/ Premix 50 mls @ 50 mls/hr IV ONETIME ONE Stop: 07/18/18 13:00 Last Admin: 07/18/18 12:44 Dose: 50 mls/hr Ondansetron HCl (Zofran) 8 mg IVPUSH ONETIME ONE Stop: 07/18/18 05:01 Last Admin: 07/18/18 05:08 Dose: 8 mg - Exam General: Reports: Alert, Oriented, Cooperative, No Acute Distress Lungs: Reports: Clear to Auscultation, Normal Respiratory Effort Cardiovascular: Reports: Regular Rate, Regular Rhythm GI/Abdominal Exam: Normal Bowel Sounds, Soft, Non-Tender Extremities: Normal Inspection Wound/Incisions: Reports: Healing Well Neurological: Reports: No New Focal Deficit Psy/Mental Status: Reports: Alert, Normal Affect, Normal Mood
== END 2018-07-20 12:55 | disposition home or self-care (01) ==
LOC: MW.ED 04:45 → MW.MS 05:03
PROVIDERS: ADMIT Internal Medicine; ATTEND Internal Medicine
DX: K85.20 Alcohol induced acute pancreatitis without necrosis or infection (principal); K86.0 Alcohol-induced chronic pancreatitis; I81 Portal vein thrombosis; F10.10 Alcohol abuse, uncomplicated; Z79.01 Long term (current) use of anticoagulants; Z79.899 Other long term (current) drug therapy
CPT/HCPCS: 36415; 80053; 83690; 83735; 85025; 96361; 96374; 96375; 96376; 99284; A9270; C9113; G0378; J1170; J2405; J3475; J7040

== ENCOUNTER 2018-07-24 09:15 | Emergency (ER) | payer OTHER ==
[2018-07-24] MEDS ORDERED: Sodium Chloride 0.9% 1,000 ML IV ONE (09:27)
--- NOTE | 2018-07-24 09:29 | EDM.PDOC ---
ED HPI GENERAL MEDICAL PROBLEM - General Chief Complaint: Abdominal Pain Stated Complaint: STOMACH PAIN Time Seen by Provider: 07/24/18 09:26 - History of Present Illness INITIAL COMMENTS - FREE TEXT/NARRATIVE: HISTORY AND PHYSICAL: History of present illness: Patient 33-year-old female with history of chronic pancreatitis was just discharged from hospital on Wednesday afternoon exacerbation who presents now with continued pain she denies vomiting fever chills chest pain shortness breath or other concern Review of systems: As per history of present illness and below otherwise all systems reviewed and negative. Past medical history: As per history of present illness and as reviewed below otherwise noncontributory. Surgical history: As per history of present illness and as reviewed below otherwise noncontributory. Social history: No reported history of drug or alcohol abuse. Family history: As per history of present illness and as reviewed below otherwise noncontributory. Physical exam: HEENT: Atraumatic, normocephalic, pupils reactive, negative for conjunctival pallor or scleral icterus, mucous membranes moist, throat clear, neck supple, nontender, trachea midline. Lungs: Clear to auscultation, breath sounds equal bilaterally, chest nontender. Heart: S1S2, regular, negative for clicks, rubs, or JVD. Abdomen: Soft, nondistended, no localized tenderness. Negative for masses or hepatosplenomegaly. Negative for costovertebral tenderness. Pelvis: Stable nontender. Genitourinary: Deferred. Rectal: Deferred. Extremities: Atraumatic, negative for cords or calf pain. Neurovascular unremarkable. Neuro: Awake, alert, oriented. Cranial nerves II through XII unremarkable. Cerebellum unremarkable. Motor and sensory unremarkable throughout. Exam nonfocal. Diagnostics: CBC CMP and lipase UA hCG EtOH urine drug screen Therapeutics: Saline 1 L bolus Impression: #1 history of pancreatitis #2 chronic abdominal pain Definitive disposition and diagnosis as appropriate pending reevaluation and review of above. Middle Abdominal Pain Score (Numeric/FACES): 10 - Related Data Allergies Allergy/AdvReac Type Severity Reaction Status Date / Time No Known Allergies Allergy Verified 07/24/18 09:26 Home Meds: Home Meds Rivaroxaban [Xarelto] 15 mg PO BID 07/18/18 [History] oxyCODONE 10 mg PO Q6H PRN #15 tablet 07/20/18 [Rx] Ondansetron [Zofran] 1 tab PO ASDIRECTED PRN 07/24/18 [History] Past Medical History - Past Health History Medical/Surgical History: Denies Medical/Surgical History HEENT History: Reports: None Cardiovascular History: Reports: Blood Clots/VTE/DVT (liver thrombis?). Denies : Hypertension Respiratory History: Reports: None. 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) Musculoskeletal History: Reports: None Neurological History: Reports: None Psychiatric History: Reports: Addiction Other Psychiatric History: ETOH Endocrine/Metabolic History: Reports: None Hematologic History: Reports: None Immunologic History: Reports: None Oncologic (Cancer) History: Reports: None Dermatologic History: Reports: None - Infectious Disease History Infectious Disease History: Reports: Chicken Pox - Past Surgical History Head Surgeries/Procedures: Reports: None HEENT Surgical History: Reports: None Cardiovascular Surgical History: Reports: None Respiratory Surgical History: Reports: None GI Surgical History: Reports: None Female Surgical History: Reports: None Endocrine Surgical History: Reports: None Neurological Surgical History: Reports: None Musculoskeletal Surgical History: Reports: None Oncologic Surgical History: Reports: None Dermatological Surgical History: Reports: None Social & Family History - Family History Family Medical History: Noncontributory Cardiac: Reports: [place] - Caffeine Use Caffeine Use: Reports: Soda - Living Situation & Occupation Living situation: Reports: Single Occupation: Unemployed ED ROS GENERAL - Review of Systems Review Of Systems: ROS reveals no pertinent complaints other than HPI. ED EXAM, GENERAL - Physical Exam Exam: See Below (See dictation) Course - Vital Signs Text/Narrative:: Patient's emergency room course is unremarkable I discussed with her transfer for admission and gastroenterology consultation patient declines and requests discharge and follow-up as outpatient. She'll be discharged with diagnosis of chronic pancreatitis follow-up EAN and if she has any change in heart regarding hospital admission/transfer she should proceed accordingly and as discussed. Last Recorded V/S: Last Vital Signs Temp 36.4 C 07/24/18 09:23 Pulse 86 07/24/18 09:23 Resp 22 H 07/24/18 09:23 BP 141/105 H 07/24/18 09:23 Pulse Ox 96 07/24/18 09:23 - Orders/Labs/Meds Labs: Laboratory Tests 07/24/18 07/24/18 07/24/18 Range/Units 09:40 09:40 09:44 WBC 9.96 (4.0-11.0) K/uL RBC 4.58 (4.30-5.90) M/uL Hgb 13.8 (12.0-16.0) g/dL Hct 40.7 (36.0-46.0) % MCV 88.9 (80.0-98.0) fL MCH 30.1 (27.0-32.0) pg MCHC 33.9 (31.0-37.0) g/dL RDW Std Deviation 42.3 (28.0-62.0) fl RDW Coeff of [place] 13 (11.0-15.0) % Plt Count 282 (150-400) K/uL MPV 8.80 (7.40-12.00) fL Neut % (Auto) 61.9 (48.0-80.0) % Lymph % (Auto) 26.9 (16.0-40.0) % [place] % (Auto) 7.8 (0.0-15.0) % Eos % (Auto) 3.2 (0.0-7.0) % Baso % (Auto) 0.2 (0.0-1.5) % Neut # (Auto) 6.2 H (1.4-5.7) K/uL Lymph # (Auto) 2.7 H (0.6-2.4) K/uL [place] # (Auto) 0.8 (0.0-0.8) K/uL Eos # (Auto) 0.3 (0.0-0.7) K/uL Baso # (Auto) 0.0 (0.0-0.1) K/uL Nucleated RBC % 0.0 /100WBC Nucleated RBCs # 0 K/uL INR Sodium (136-145) mmol/L Potassium (3.5-5.1) mmol/L Chloride (98-107) mmol/L Carbon Dioxide (21.0-32.0) mmol/L BUN (7.0-18.0) mg/dL Creatinine (0.6-1.0) mg/dL Est Cr Clr Drug Dosing mL/min Estimated GFR (MDRD) ml/min Glucose (74-106) mg/dL Calcium (8.5-10.1) mg/dL Total Bilirubin (0.2-1.0) mg/dL AST (15-37) IU/L ALT (14-63) IU/L Alkaline Phosphatase (46-116) U/L Total Protein (6.4-8.2) g/dL Albumin (3.4-5.0) g/dL Globulin (2.6-4.0) g/dL Albumin/Globulin Ratio (0.9-1.6) Lipase (73-393) U/L HCG, Qual (NEG) Urine Color YELLOW Urine Appearance SLT CLOUDY Urine pH 6.0 (5.0-8.0) Ur Specific [place] >= 1.030 (1.001-1.035) Urine Protein TRACE H (NEGATIVE) mg/dL Urine Glucose (UA) NEGATIVE (NEGATIVE) mg/dL Urine Ketones TRACE H (NEGATIVE) mg/dL Urine Occult Blood MODERATE H (NEGATIVE) Urine Nitrite NEGATIVE (NEGATIVE) Urine Bilirubin SMALL H (NEGATIVE) Urine Ictotest NEGATIVE Urine Urobilinogen 0.2 (<2.0) EU/dL Ur Leukocyte Esterase NEGATIVE (NEGATIVE) Urine RBC 1-3 (0-2/HPF) Urine WBC 0-2 (0-5/HPF) Ur Epithelial Cells MODERATE (NONE-FEW) Urine Bacteria 1+ H (NEGATIVE) Urine Mucus MODERATE (NONE-MOD) Urine Opiates Screen NEGATIVE (NEGATIVE) Ur Oxycodone Screen POSITIVE (NEGATIVE) Urine Methadone Screen NEGATIVE (NEGATIVE) Ur Barbiturates Screen NEGATIVE (NEGATIVE) Ur Phencyclidine Scrn NEGATIVE (NEGATIVE) Ur Amphetamine Screen NEGATIVE (NEGATIVE) U Methamphetamines Scrn NEGATIVE (NEGATIVE) U Benzodiazepines Scrn POSITIVE (NEGATIVE) U Cocaine Metab Screen NEGATIVE (NEGATIVE) U Marijuana (THC) Screen NEGATIVE (NEGATIVE) Ethyl Alcohol mg/dL 07/24/18 07/24/18 07/24/18 Range/Units 09:44 09:44 09:44 WBC (4.0-11.0) K/uL RBC (4.30-5.90) M/uL Hgb (12.0-16.0) g/dL Hct (36.0-46.0) % MCV (80.0-98.0) fL MCH (27.0-32.0) pg MCHC (31.0-37.0) g/dL RDW Std Deviation (28.0-62.0) fl RDW Coeff of [place] (11.0-15.0) % Plt Count (150-400) K/uL MPV (7.40-12.00) fL Neut % (Auto) (48.0-80.0) % Lymph % (Auto) (16.0-40.0) % [place] % (Auto) (0.0-15.0) % Eos % (Auto) (0.0-7.0) % Baso % (Auto) (0.0-1.5) % Neut # (Auto) (1.4-5.7) K/uL Lymph # (Auto) (0.6-2.4) K/uL [place] # (Auto) (0.0-0.8) K/uL Eos # (Auto) (0.0-0.7) K/uL Baso # (Auto) (0.0-0.1) K/uL Nucleated RBC % /100WBC Nucleated RBCs # K/uL INR 1.12 Sodium 141 (136-145) mmol/L Potassium 3.2 L (3.5-5.1) mmol/L Chloride 104 (98-107) mmol/L Carbon Dioxide 25.6 (21.0-32.0) mmol/L BUN 9 (7.0-18.0) mg/dL Creatinine 0.6 (0.6-1.0) mg/dL Est Cr Clr Drug Dosing 121.13 mL/min Estimated GFR (MDRD) > 60.0 ml/min Glucose 119 H (74-106) mg/dL Calcium 10.1 (8.5-10.1) mg/dL Total Bilirubin 0.4 (0.2-1.0) mg/dL AST 15 (15-37) IU/L ALT 37 (14-63) IU/L Alkaline Phosphatase 136 H (46-116) U/L Total Protein 7.9 (6.4-8.2) g/dL Albumin 4.0 (3.4-5.0) g/dL Globulin 3.9 (2.6-4.0) g/dL Albumin/Globulin Ratio 1.0 (0.9-1.6) Lipase 1888 H (73-393) U/L HCG, Qual NEGATIVE (NEG) Urine Color Urine Appearance Urine pH (5.0-8.0) Ur Specific [place] (1.001-1.035) Urine Protein (NEGATIVE) mg/dL Urine Glucose (UA) (NEGATIVE) mg/dL Urine Ketones (NEGATIVE) mg/dL Urine Occult Blood (NEGATIVE) Urine Nitrite (NEGATIVE) Urine Bilirubin (NEGATIVE) Urine Ictotest Urine Urobilinogen (<2.0) EU/dL Ur Leukocyte Esterase (NEGATIVE) Urine RBC (0-2/HPF) Urine WBC (0-5/HPF) Ur Epithelial Cells (NONE-FEW) Urine Bacteria (NEGATIVE) Urine Mucus (NONE-MOD) Urine Opiates Screen (NEGATIVE) Ur Oxycodone Screen (NEGATIVE) Urine Methadone Screen (NEGATIVE) Ur Barbiturates Screen (NEGATIVE) Ur Phencyclidine Scrn (NEGATIVE) Ur Amphetamine Screen (NEGATIVE) U Methamphetamines Scrn (NEGATIVE) U Benzodiazepines Scrn (NEGATIVE) U Cocaine Metab Screen (NEGATIVE) U Marijuana (THC) Screen (NEGATIVE) Ethyl Alcohol <3 mg/dL Meds: Medications Discontinued Medications Generic Name Dose Route Start Last Admin Trade Name Freq PRN Reason Stop Dose Admin Ceftriaxone Sodium 1 gm 07/24/18 10:41 Rocephin IVPUSH 07/24/18 10:42 ONETIME ONE Sodium Chloride 1,000 mls @ 999 mls/hr 07/24/18 09:27 07/24/18 09:46 Normal Saline IV 07/24/18 10:27 999 mls/hr STAT ONE Administration Departure - Departure Time of Disposition: 10:52 Disposition: Home, Self-Care 01 Condition: Good Clinical Impression: Chronic pancreatitis - Discharge Information Referrals: PCP,None [Primary Care Provider] - Forms: ED Department Discharge Additional Instructions: The following information is given to patients seen in the emergency department who are being discharged to home. This information is to outline your options for follow-up care. We provide all patients seen in our emergency department with a follow-up referral. The need for follow-up, as well as the timing and circumstances, are variable depending upon the specifics of your emergency department visit. If you don't have a primary care physician on staff, we will provide you with a referral. We always advise you to contact your personal physician following an emergency department visit to inform them of the circumstance of the visit and for follow-up with them and/or the need for any referrals to a consulting specialist. The emergency department will also refer you to a specialist when appropriate. This referral assures that you have the opportunity for followup care with a specialist. All of these measure are taken in an effort to provide you with optimal care, which includes your followup. Under all circumstances we always encourage you to contact your private physician who remains a resource for coordinating your care. When calling for followup care, please make the office aware that this follow-up is from your recent emergency room visit. If for any reason you are refused follow-up, please contact the [facility] emergency department at and asked to speak to the emergency department charge nurse. Diet as discussed clear liquids 24 hours follow-up private medical doctor and gastroenterology as discussed return as needed as discussed
[2018-07-24 10:17] LABS: CHLORIDE,CL 104 mmol/L (98-107); SODIUM,NA 141 mmol/L (136-145)
[2018-07-24] MEDS ORDERED: cefTRIAXone 1 GM Vial IVPUSH ONE (10:41)
== END 2018-07-24 11:28 | disposition home or self-care (01) ==
LOC: MW.ED 09:15
DX: K86.1 Other chronic pancreatitis (principal)
CPT/HCPCS: 36415; 80053; 80305; 81001; 83690; 84703; 85025; 85610; 96361; 96374; 99284; G0480; J0696; J7040; 99283

== ENCOUNTER 2018-08-12 04:14 | Emergency (ER) | payer BC ==
[2018-08-12] MEDS ORDERED: Ondansetron 4 MG/2 ML SDV IVPUSH ONE (04:28)
[2018-08-12] MEDS ORDERED: Sodium Chloride 0.9% 1,000 ML IV ONE ×2 (04:28→05:19)
[2018-08-12] MEDS ORDERED: Morphine 2 MG/ML Syringe IVPUSH ONE (04:30)
--- NOTE | 2018-08-12 04:30 | EDM.PDOC ---
ED HPI GENERAL MEDICAL PROBLEM - General Chief Complaint: Abdominal Pain Stated Complaint: ABDOMINAL PAIN Time Seen by Provider: 08/12/18 04:29 Source of Information: Reports: Patient - History of Present Illness INITIAL COMMENTS - FREE TEXT/NARRATIVE: HISTORY AND PHYSICAL: History of present illness: []Patient with history of pancreatitis presents with 8 out of 10 epigastric/ abdominal pain, she admits to having 2 drinks of alcohol last night No fever nausea vomiting chills sweats no chest pain shortness breath headache dizziness palpitation no bowel or urine symptoms Review of systems: As per history of present illness and below otherwise all systems reviewed and negative. Past medical history: As per history of present illness and as reviewed below otherwise noncontributory. Surgical history: As per history of present illness and as reviewed below otherwise noncontributory. Social history: No reported history of drug or alcohol abuse. Family history: As per history of present illness and as reviewed below otherwise noncontributory. Physical exam: HEENT: Atraumatic, normocephalic, pupils reactive, negative for conjunctival pallor or scleral icterus, mucous membranes moist, throat clear, neck supple, nontender, trachea midline. Lungs: Clear to auscultation, breath sounds equal bilaterally, chest nontender. Heart: S1S2, regular, negative for clicks, rubs, or JVD. Abdomen: Soft, nondistended, nontender. Negative for masses or hepatosplenomegaly. Negative for costovertebral tenderness. Pelvis: Stable nontender. Genitourinary: Deferred. Rectal: Deferred. Extremities: Atraumatic, negative for cords or calf pain. Neurovascular unremarkable. Neuro: Awake, alert, oriented. Cranial nerves II through XII unremarkable. Cerebellum unremarkable. Motor and sensory unremarkable throughout. Exam nonfocal. Diagnostics: [CBC CMP UA lipase ]Patient offered CT scan however she declines as previous She is also offered admission which she considered for pain control and continued hydration however they're on diversion and no beds she refused transfer to [facility] at this time pain is controlled She desires to see if she can get by at home with oral pain medicine and clear liquids advancing diet as tolerated she has done this in the past with success, however if pain returns intractable pain fever nausea vomiting will prompt her return she agrees with this plan Therapeutics: [ saline Zofran MS 2 mg, followed by morphine 4 mg Proton X 80 mg IV Clark ] Impression: Increased tightness Abdominal pain ]-improved/controlled Definitive disposition and diagnosis as appropriate pending reevaluation and review of above. upper abdominal pain Pain Score (Numeric/FACES): 9 - Related Data Allergies Allergy/AdvReac Type Severity Reaction Status Date / Time No Known Allergies Allergy Verified 07/24/18 09:26 Home Meds: Home Meds . 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) Musculoskeletal History: Reports: None Neurological History: Reports: None Psychiatric History: Reports: Addiction Other Psychiatric History: ETOH Endocrine/Metabolic History: Reports: None Hematologic History: Reports: None Immunologic History: Reports: None Oncologic (Cancer) History: Reports: None Dermatologic History: Reports: None - Infectious Disease History Infectious Disease History: Reports: Chicken Pox - Past Surgical History Head Surgeries/Procedures: Reports: None HEENT Surgical History: Reports: None Cardiovascular Surgical History: Reports: None Respiratory Surgical History: Reports: None GI Surgical History: Reports: None Female Surgical History: Reports: None Endocrine Surgical History: Reports: None Neurological Surgical History: Reports: None Musculoskeletal Surgical History: Reports: None Oncologic Surgical History: Reports: None Dermatological Surgical History: Reports: None Social & Family History - Family History Family Medical History: Noncontributory Cardiac: Reports: [place] - Tobacco Use Smoking Status *Q: Never Smoker - Caffeine Use Caffeine Use: Reports: Soda - Living Situation & Occupation Living situation: Reports: Single Occupation: Unemployed ED ROS GENERAL - Review of Systems Review Of Systems: See Below ED EXAM, GENERAL - Physical Exam Exam: See Below Course - Vital Signs Last Recorded V/S: Last Vital Signs Temp 96.5 F 08/12/18 06:29 Pulse 82 08/12/18 06:29 Resp 18 08/12/18 06:29 BP 129/89 08/12/18 06:29 Pulse Ox 99 08/12/18 06:29 - Orders/Labs/Meds Labs: Laboratory Tests 08/12/18 08/12/18 08/12/18 Range/Units 04:02 04:02 04:27 WBC 9.37 (4.0-11.0) K/uL RBC 4.38 (4.30-5.90) M/uL Hgb 13.2 (12.0-16.0) g/dL Hct 38.2 (36.0-46.0) % MCV 87.2 (80.0-98.0) fL MCH 30.1 (27.0-32.0) pg MCHC 34.6 (31.0-37.0) g/dL RDW Std Deviation 41.2 (28.0-62.0) fl RDW Coeff of [place] 13 (11.0-15.0) % Plt Count 263 (150-400) K/uL MPV 8.60 (7.40-12.00) fL Neut % (Auto) 43.4 L (48.0-80.0) % Lymph % (Auto) 48.7 H (16.0-40.0) % [place] % (Auto) 5.7 (0.0-15.0) % Eos % (Auto) 1.9 (0.0-7.0) % Baso % (Auto) 0.3 (0.0-1.5) % Neut # (Auto) 4.1 (1.4-5.7) K/uL Lymph # (Auto) 4.6 H (0.6-2.4) K/uL [place] # (Auto) 0.5 (0.0-0.8) K/uL Eos # (Auto) 0.2 (0.0-0.7) K/uL Baso # (Auto) 0.0 (0.0-0.1) K/uL Nucleated RBC % 0.0 /100WBC Nucleated RBCs # 0 K/uL Sodium (136-145) mmol/L Potassium (3.5-5.1) mmol/L Chloride (98-107) mmol/L Carbon Dioxide (21.0-32.0) mmol/L BUN (7.0-18.0) mg/dL Creatinine (0.6-1.0) mg/dL Est Cr Clr Drug Dosing mL/min Estimated GFR (MDRD) ml/min Glucose (74-106) mg/dL Calcium (8.5-10.1) mg/dL Total Bilirubin (0.2-1.0) mg/dL AST (15-37) IU/L ALT (14-63) IU/L Alkaline Phosphatase (46-116) U/L Total Protein (6.4-8.2) g/dL Albumin (3.4-5.0) g/dL Globulin (2.6-4.0) g/dL Albumin/Globulin Ratio (0.9-1.6) Lipase (73-393) U/L Urine Color YELLOW Urine Appearance CLEAR Urine pH 6.5 (5.0-8.0) Ur Specific [place] 1.025 (1.001-1.035) Urine Protein NEGATIVE (NEGATIVE) mg/dL Urine Glucose (UA) NEGATIVE (NEGATIVE) mg/dL Urine Ketones NEGATIVE (NEGATIVE) mg/dL Urine Occult Blood TRACE-INTACT H (NEGATIVE) Urine Nitrite NEGATIVE (NEGATIVE) Urine Bilirubin NEGATIVE (NEGATIVE) Urine Urobilinogen 0.2 (<2.0) EU/dL Ur Leukocyte Esterase NEGATIVE (NEGATIVE) Urine RBC 1-3 (0-2/HPF) Urine WBC 0-2 (0-5/HPF) Ur Epithelial Cells MANY (NONE-FEW) Urine Bacteria FEW (NEGATIVE) Urine Mucus HEAVY (NONE-MOD) Urine HCG, Qual NEGATIVE (NEGATIVE) 08/12/18 Range/Units 04:27 WBC (4.0-11.0) K/uL RBC (4.30-5.90) M/uL Hgb (12.0-16.0) g/dL Hct (36.0-46.0) % MCV (80.0-98.0) fL MCH (27.0-32.0) pg MCHC (31.0-37.0) g/dL RDW Std Deviation (28.0-62.0) fl RDW Coeff of [place] (11.0-15.0) % Plt Count (150-400) K/uL MPV (7.40-12.00) fL Neut % (Auto) (48.0-80.0) % Lymph % (Auto) (16.0-40.0) % [place] % (Auto) (0.0-15.0) % Eos % (Auto) (0.0-7.0) % Baso % (Auto) (0.0-1.5) % Neut # (Auto) (1.4-5.7) K/uL Lymph # (Auto) (0.6-2.4) K/uL [place] # (Auto) (0.0-0.8) K/uL Eos # (Auto) (0.0-0.7) K/uL Baso # (Auto) (0.0-0.1) K/uL Nucleated RBC % /100WBC Nucleated RBCs # K/uL Sodium 139 (136-145) mmol/L Potassium 3.5 (3.5-5.1) mmol/L Chloride 105 (98-107) mmol/L Carbon Dioxide 23.3 (21.0-32.0) mmol/L BUN 13 (7.0-18.0) mg/dL Creatinine 0.6 (0.6-1.0) mg/dL Est Cr Clr Drug Dosing 116.24 mL/min Estimated GFR (MDRD) > 60.0 ml/min Glucose 106 (74-106) mg/dL Calcium 8.9 (8.5-10.1) mg/dL Total Bilirubin 0.4 (0.2-1.0) mg/dL AST 20 (15-37) IU/L ALT 25 (14-63) IU/L Alkaline Phosphatase 118 H (46-116) U/L Total Protein 7.4 (6.4-8.2) g/dL Albumin 3.6 (3.4-5.0) g/dL Globulin 3.8 (2.6-4.0) g/dL Albumin/Globulin Ratio 0.9 (0.9-1.6) Lipase 861 H (73-393) U/L Urine Color Urine Appearance Urine pH (5.0-8.0) Ur Specific [place] (1.001-1.035) Urine Protein (NEGATIVE) mg/dL Urine Glucose (UA) (NEGATIVE) mg/dL Urine Ketones (NEGATIVE) mg/dL Urine Occult Blood (NEGATIVE) Urine Nitrite (NEGATIVE) Urine Bilirubin (NEGATIVE) Urine Urobilinogen (<2.0) EU/dL Ur Leukocyte Esterase (NEGATIVE) Urine RBC (0-2/HPF) Urine WBC (0-5/HPF) Ur Epithelial Cells (NONE-FEW) Urine Bacteria (NEGATIVE) Urine Mucus (NONE-MOD) Urine HCG, Qual (NEGATIVE) Meds: Medications Discontinued Medications Generic Name Dose Route Start Last Admin Trade Name Monoq PRN Reason Stop Dose Admin Hydromorphone HCl 1 mg 08/12/18 05:31 08/12/18 05:38 Dilaudid IVPUSH 08/12/18 05:32 Not Given ONETIME ONE Hydromorphone HCl Confirm 08/12/18 05:34 08/12/18 05:38 Dilaudid Administered 08/12/18 05:35 Not Given Dose 1 mg .ROUTE .STK-MED ONE Hydromorphone HCl 1 mg 08/12/18 05:36 08/12/18 05:38 Dilaudid IVPUSH 08/12/18 05:37 1 mg ONETIME ONE Administration Sodium Chloride 1,000 mls @ 999 mls/hr 08/12/18 04:28 08/12/18 04:35 Normal Saline IV 08/12/18 05:28 999 mls/hr STAT ONE Administration Sodium Chloride 1,000 mls @ 999 mls/hr 08/12/18 05:19 08/12/18 05:20 Normal Saline IV 08/12/18 06:19 999 mls/hr .Bolus ONE Administration Morphine Sulfate 2 mg 08/12/18 04:30 08/12/18 04:35 Morphine IVPUSH 08/12/18 04:31 2 mg ONETIME ONE Administration Morphine Sulfate 4 mg 08/12/18 05:07 08/12/18 05:13 Morphine IVPUSH 08/12/18 05:08 4 mg ONETIME ONE Administration Ondansetron HCl 8 mg 08/12/18 04:28 08/12/18 04:35 Zofran IVPUSH 08/12/18 04:29 8 mg ONETIME ONE Administration Pantoprazole Sodium 80 mg 08/12/18 05:07 08/12/18 05:15 Protonix Iv IVPUSH 08/12/18 05:08 80 mg .BOLUS ONE Administration Departure - Departure Time of Disposition: 06:48 Disposition: Home, Self-Care 01 Condition: Fair Clinical Impression: Pancreatitis Qualifiers: Chronicity: acute Pancreatitis type: alcohol induced Acute pancreatitis complication: unspecified Qualified Code(s): K85.20 - Alcohol induced acute pancreatitis without necrosis or infection - Discharge Information Referrals: PCP,None [Primary Care Provider] - Forms: ED Department Discharge Additional Instructions: The following information is given to patients seen in the emergency department who are being discharged to home. This information is to outline your options for follow-up care. We provide all patients seen in our emergency department with a follow-up referral. The need for follow-up, as well as the timing and circumstances, are variable depending upon the specifics of your emergency department visit. If you don't have a primary care physician on staff, we will provide you with a referral. We always advise you to contact your personal physician following an emergency department visit to inform them of the circumstance of the visit and for follow-up with them and/or the need for any referrals to a consulting specialist. The emergency department will also refer you to a specialist when appropriate. This referral assures that you have the opportunity for follow-up care with a specialist. All of these measure are taken in an effort to provide you with optimal care, which includes your follow-up. Under all circumstances we always encourage you to contact your private physician who remains a resource for coordinating your care. When calling for follow-up care, please make the office aware that this follow-up is from your recent emergency room visit. If for any reason you are refused follow-up, please contact the [facility] emergency department at and asked to speak to the emergency department charge nurse.
[2018-08-12 04:57] LABS: CHLORIDE,CL 105 mmol/L (98-107); SODIUM,NA 139 mmol/L (136-145)
[2018-08-12] MEDS ORDERED: Morphine 4 MG/ML Syringe IVPUSH ONE (05:07)
[2018-08-12] MEDS ORDERED: Pantoprazole 40 MG Vial IVPUSH ONE (05:07)
[2018-08-12] MEDS ORDERED: HYDROmorphone 2 MG/ML SDV IVPUSH ONE (05:31)
[2018-08-12] MEDS ORDERED: HYDROmorphone 1 MG/ML Syringe ONE (05:34)
[2018-08-12] MEDS ORDERED: HYDROmorphone 1 MG/ML Syringe IVPUSH ONE (05:36)
== END 2018-08-12 07:06 | disposition home or self-care (01) ==
LOC: MW.ED 04:14
DX: K85.20 Alcohol induced acute pancreatitis without necrosis or infection (principal)
CPT/HCPCS: 36415; 80053; 81001; 81025; 83690; 85025; 96361; 96374; 96375; 96376; 99284; C9113; J1170; J2270; J2405; J7040

== ENCOUNTER 2018-08-20 01:16 | Emergency (ER) | payer BC, MEDICAID ==
[2018-08-20] MEDS ORDERED: Sodium Chloride 0.9% 1,000 ML IV ONE (01:25)
--- NOTE | 2018-08-20 01:26 | EDM.PDOC ---
ED HPI GENERAL MEDICAL PROBLEM - General Stated Complaint: ABDOMINAL PAIN Time Seen by Provider: 08/20/18 01:26 Source of Information: Reports: Patient - History of Present Illness INITIAL COMMENTS - FREE TEXT/NARRATIVE: HISTORY AND PHYSICAL: History of present illness: [Patient with chronic pancreatitis presents with abdominal pain no fever nausea vomiting chills sweats no chest pain shortness breath headache dizziness palpitation no bowel or urine symptoms ] Review of systems: As per history of present illness and below otherwise all systems reviewed and negative. Past medical history: As per history of present illness and as reviewed below otherwise noncontributory. Surgical history: As per history of present illness and as reviewed below otherwise noncontributory. Social history: No reported history of drug or alcohol abuse. Family history: As per history of present illness and as reviewed below otherwise noncontributory. Physical exam: HEENT: Atraumatic, normocephalic, pupils reactive, negative for conjunctival pallor or scleral icterus, mucous membranes moist, throat clear, neck supple, nontender, trachea midline. Lungs: Clear to auscultation, breath sounds equal bilaterally, chest nontender. Heart: S1S2, regular, negative for clicks, rubs, or JVD. Abdomen: Soft, nondistended, nontender. Negative for masses or hepatosplenomegaly. Negative for costovertebral tenderness. Pelvis: Stable nontender. Genitourinary: Deferred. Rectal: Deferred. Extremities: Atraumatic, negative for cords or calf pain. Neurovascular unremarkable. Neuro: Awake, alert, oriented. Cranial nerves II through XII unremarkable. Cerebellum unremarkable. Motor and sensory unremarkable throughout. Exam nonfocal. Diagnostics: [CBC CMP and lipase UA hCG ] Therapeutics: [1 L normal saline bolus Oxycodone Macrobid ] establish primary care consider chronic pain management Follow-up with specialist for MRI scheduled next week Impression: [Abdominal pain, chronic pancreatitis , UTI Definitive disposition and diagnosis as appropriate pending reevaluation and review of above. Upper Abdomen Pain Score (Numeric/FACES): 9 - Related Data Allergies Allergy/AdvReac Type Severity Reaction Status Date / Time No Known Allergies Allergy Verified 08/20/18 01:29 Home Meds: Home Meds . 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) Musculoskeletal History: Reports: None Neurological History: Reports: None Psychiatric History: Reports: Addiction Other Psychiatric History: ETOH Endocrine/Metabolic History: Reports: None Hematologic History: Reports: None Immunologic History: Reports: None Oncologic (Cancer) History: Reports: None Dermatologic History: Reports: None - Infectious Disease History Infectious Disease History: Reports: Chicken Pox - Past Surgical History Head Surgeries/Procedures: Reports: None HEENT Surgical History: Reports: None Cardiovascular Surgical History: Reports: None Respiratory Surgical History: Reports: None GI Surgical History: Reports: None Female Surgical History: Reports: None Endocrine Surgical History: Reports: None Neurological Surgical History: Reports: None Musculoskeletal Surgical History: Reports: None Oncologic Surgical History: Reports: None Dermatological Surgical History: Reports: None Social & Family History - Family History Family Medical History: Noncontributory Cardiac: Reports: [place] - Caffeine Use Caffeine Use: Reports: Soda - Living Situation & Occupation Living situation: Reports: Single Occupation: Unemployed ED ROS GENERAL - Review of Systems Review Of Systems: See Below ED EXAM, GENERAL - Physical Exam Exam: See Below Course - Vital Signs Last Recorded V/S: Last Vital Signs Temp 96.6 F 08/20/18 01:28 Pulse 89 08/20/18 01:28 Resp 18 08/20/18 01:28 BP 140/100 H 08/20/18 01:28 Pulse Ox 98 08/20/18 01:28 - Orders/Labs/Meds Orders: Active Orders 24 hr Category Date Time Status CULTURE URINE [RM] Stat Lab 08/20/18 01:32 Received Labs: Laboratory Tests 08/20/18 08/20/18 08/20/18 Range/Units 01:32 01:32 01:32 WBC (4.0-11.0) K/uL RBC (4.30-5.90) M/uL Hgb (12.0-16.0) g/dL Hct (36.0-46.0) % MCV (80.0-98.0) fL MCH (27.0-32.0) pg MCHC (31.0-37.0) g/dL RDW Std Deviation (28.0-62.0) fl RDW Coeff of [place] (11.0-15.0) % Plt Count (150-400) K/uL MPV (7.40-12.00) fL Neut % (Auto) (48.0-80.0) % Lymph % (Auto) (16.0-40.0) % [place] % (Auto) (0.0-15.0) % Eos % (Auto) (0.0-7.0) % Baso % (Auto) (0.0-1.5) % Neut # (Auto) (1.4-5.7) K/uL Lymph # (Auto) (0.6-2.4) K/uL [place] # (Auto) (0.0-0.8) K/uL Eos # (Auto) (0.0-0.7) K/uL Baso # (Auto) (0.0-0.1) K/uL Sodium (136-145) mmol/L Potassium (3.5-5.1) mmol/L Chloride (98-107) mmol/L Carbon Dioxide (21.0-32.0) mmol/L BUN (7.0-18.0) mg/dL Creatinine (0.6-1.0) mg/dL Est Cr Clr Drug Dosing mL/min Estimated GFR (MDRD) ml/min Glucose (74-106) mg/dL Calcium (8.5-10.1) mg/dL Total Bilirubin (0.2-1.0) mg/dL AST (15-37) IU/L ALT (14-63) IU/L Alkaline Phosphatase (46-116) U/L Total Protein (6.4-8.2) g/dL Albumin (3.4-5.0) g/dL Globulin (2.6-4.0) g/dL Albumin/Globulin Ratio (0.9-1.6) Lipase (73-393) U/L Urine Color YELLOW Urine Appearance HAZY Urine pH 6.5 (5.0-8.0) Ur Specific [place] 1.010 (1.001-1.035) Urine Protein NEGATIVE (NEGATIVE) mg/dL Urine Glucose (UA) NEGATIVE (NEGATIVE) mg/dL Urine Ketones NEGATIVE (NEGATIVE) mg/dL Urine Occult Blood SMALL H (NEGATIVE) Urine Nitrite NEGATIVE (NEGATIVE) Urine Bilirubin NEGATIVE (NEGATIVE) Urine Urobilinogen 0.2 (<2.0) EU/dL Ur Leukocyte Esterase TRACE H (NEGATIVE) Urine RBC 0-2 (0-2/HPF) Urine WBC 1-3 (0-5/HPF) Ur Epithelial Cells FEW (NONE-FEW) Urine Bacteria FEW (NEGATIVE) Urine HCG, Qual NEGATIVE (NEGATIVE) Urine Opiates Screen NEGATIVE (NEGATIVE) Ur Oxycodone Screen POSITIVE (NEGATIVE) Urine Methadone Screen NEGATIVE (NEGATIVE) Ur Barbiturates Screen NEGATIVE (NEGATIVE) Ur Phencyclidine Scrn NEGATIVE (NEGATIVE) Ur Amphetamine Screen NEGATIVE (NEGATIVE) U Methamphetamines Scrn NEGATIVE (NEGATIVE) U Benzodiazepines Scrn NEGATIVE (NEGATIVE) U Cocaine Metab Screen NEGATIVE (NEGATIVE) U Marijuana (THC) Screen NEGATIVE (NEGATIVE) Ethyl Alcohol mg/dL 08/20/18 08/20/18 Range/Units 01:40 01:40 WBC 9.68 (4.0-11.0) K/uL RBC 4.01 L (4.30-5.90) M/uL Hgb 12.0 (12.0-16.0) g/dL Hct 36.3 (36.0-46.0) % MCV 90.5 (80.0-98.0) fL MCH 29.9 (27.0-32.0) pg MCHC 33.1 (31.0-37.0) g/dL RDW Std Deviation 41.5 (28.0-62.0) fl RDW Coeff of [place] 13 (11.0-15.0) % Plt Count 367 (150-400) K/uL MPV 8.50 (7.40-12.00) fL Neut % (Auto) 55.6 (48.0-80.0) % Lymph % (Auto) 33.3 (16.0-40.0) % [place] % (Auto) 8.4 (0.0-15.0) % Eos % (Auto) 2.4 (0.0-7.0) % Baso % (Auto) 0.3 (0.0-1.5) % Neut # (Auto) 5.4 (1.4-5.7) K/uL Lymph # (Auto) 3.2 H (0.6-2.4) K/uL [place] # (Auto) 0.8 (0.0-0.8) K/uL Eos # (Auto) 0.2 (0.0-0.7) K/uL Baso # (Auto) 0.0 (0.0-0.1) K/uL Sodium 139 (136-145) mmol/L Potassium 3.6 (3.5-5.1) mmol/L Chloride 102 (98-107) mmol/L Carbon Dioxide 27.2 (21.0-32.0) mmol/L BUN 10 (7.0-18.0) mg/dL Creatinine 0.5 L (0.6-1.0) mg/dL Est Cr Clr Drug Dosing 139.49 mL/min Estimated GFR (MDRD) > 60.0 ml/min Glucose 109 H (74-106) mg/dL Calcium 9.2 (8.5-10.1) mg/dL Total Bilirubin 0.1 L (0.2-1.0) mg/dL AST 15 (15-37) IU/L ALT 16 (14-63) IU/L Alkaline Phosphatase 77 (46-116) U/L Total Protein 7.5 (6.4-8.2) g/dL Albumin 3.6 (3.4-5.0) g/dL Globulin 3.9 (2.6-4.0) g/dL Albumin/Globulin Ratio 0.9 (0.9-1.6) Lipase 1213 H (73-393) U/L Urine Color Urine Appearance Urine pH (5.0-8.0) Ur Specific [place] (1.001-1.035) Urine Protein (NEGATIVE) mg/dL Urine Glucose (UA) (NEGATIVE) mg/dL Urine Ketones (NEGATIVE) mg/dL Urine Occult Blood (NEGATIVE) Urine Nitrite (NEGATIVE) Urine Bilirubin (NEGATIVE) Urine Urobilinogen (<2.0) EU/dL Ur Leukocyte Esterase (NEGATIVE) Urine RBC (0-2/HPF) Urine WBC (0-5/HPF) Ur Epithelial Cells (NONE-FEW) Urine Bacteria (NEGATIVE) Urine HCG, Qual (NEGATIVE) Urine Opiates Screen (NEGATIVE) Ur Oxycodone Screen (NEGATIVE) Urine Methadone Screen (NEGATIVE) Ur Barbiturates Screen (NEGATIVE) Ur Phencyclidine Scrn (NEGATIVE) Ur Amphetamine Screen (NEGATIVE) U Methamphetamines Scrn (NEGATIVE) U Benzodiazepines Scrn (NEGATIVE) U Cocaine Metab Screen (NEGATIVE) U Marijuana (THC) Screen (NEGATIVE) Ethyl Alcohol <3 mg/dL Meds: Medications Discontinued Medications Generic Name Dose Route Start Last Admin Trade Name Jackie PRN Reason Stop Dose Admin Hydromorphone HCl 1 mg 08/20/18 01:53 08/20/18 02:15 Dilaudid IVPUSH 08/20/18 01:54 Not Given ONETIME ONE Hydromorphone HCl 0.5 mg 08/20/18 02:07 08/20/18 02:09 Dilaudid IVPUSH 08/20/18 02:08 Not Given ONETIME ONE Hydromorphone HCl Confirm 08/20/18 02:10 08/20/18 02:18 Dilaudid Administered 08/20/18 02:11 Not Given Dose 1 mg .ROUTE .STK-MED ONE Hydromorphone HCl 1 mg 08/20/18 02:13 08/20/18 02:13 Dilaudid IVPUSH 08/20/18 02:14 1 mg ONETIME ONE Administration Sodium Chloride 1,000 mls @ 999 mls/hr 08/20/18 01:25 08/20/18 01:45 Normal Saline IV 08/20/18 02:25 999 mls/hr STAT ONE Administration Departure - Departure Time of Disposition: 03:05 Disposition: Home, Self-Care 01 Condition: Good Clinical Impression: Chronic pancreatitis UTI (urinary tract infection) Qualifiers: Urinary tract infection type: acute cystitis Hematuria presence: without hematuria Qualified Code(s): N30.00 - Acute cystitis without hematuria - Discharge Information Referrals: PCP,None [Primary Care Provider] - Additional Instructions: The following information is given to patients seen in the emergency department who are being discharged to home. This information is to outline your options for follow-up care. We provide all patients seen in our emergency department with a follow-up referral. The need for follow-up, as well as the timing and circumstances, are variable depending upon the specifics of your emergency department visit. If you don't have a primary care physician on staff, we will provide you with a referral. We always advise you to contact your personal physician following an emergency department visit to inform them of the circumstance of the visit and for follow-up with them and/or the need for any referrals to a consulting specialist. The emergency department will also refer you to a specialist when appropriate. This referral assures that you have the opportunity for follow-up care with a specialist. All of these measure are taken in an effort to provide you with optimal care, which includes your follow-up. Under all circumstances we always encourage you to contact your private physician who remains a resource for coordinating your care. When calling for follow-up care, please make the office aware that this follow-up is from your recent emergency room visit. If for any reason you are refused follow-up, please contact the [facility] emergency department at and asked to speak to the emergency department charge nurse. - My Orders Last 24 Hours: My Active Orders 08/20/18 01:32 CULTURE URINE [RM] Stat - Assessment/Plan Last 24 Hours: My Active Orders 08/20/18 01:32 CULTURE URINE [RM] Stat
[2018-08-20] MEDS ORDERED: HYDROmorphone 2 MG/ML SDV IVPUSH ONE (01:53)
[2018-08-20] MEDS ORDERED: HYDROmorphone 2 MG/ML Syringe IVPUSH ONE (02:07)
[2018-08-20] MEDS ORDERED: HYDROmorphone 1 MG/ML Syringe ONE (02:10)
[2018-08-20] MEDS ORDERED: HYDROmorphone 1 MG/ML Syringe IVPUSH ONE (02:13)
[2018-08-20 02:16] LABS: CHLORIDE,CL 102 mmol/L (98-107); SODIUM,NA 139 mmol/L (136-145)
== END 2018-08-20 03:20 | disposition home or self-care (01) ==
LOC: MW.ED 01:16
DX: K86.1 Other chronic pancreatitis (principal); N30.00 Acute cystitis without hematuria
CPT/HCPCS: 80053; 80305; 81001; 81025; 83690; 85025; 87086; 96361; 96374; 99284; G0480; J1170; J7040

== ENCOUNTER 2018-09-30 03:25 | Observation (INO) | payer BC ==
[2018-09-30] MEDS ORDERED: Sodium Chloride 0.9% 1,000 ML IV ONE ×2 (03:48→08:04)
[2018-09-30] MEDS ORDERED: Sodium Chloride 0.9% 2.5 ML Syringe FLUSH PRN (03:48)
[2018-09-30] MEDS ORDERED: HYDROmorphone 1 MG/ML Syringe IVPUSH ONE ×2 (03:48→05:32)
[2018-09-30] MEDS ORDERED: Ondansetron 4 MG/2 ML SDV IVPUSH ONE (03:48)
[2018-09-30] MEDS ORDERED: Sodium Chloride 0.9% 10 ML Syringe FLUSH PRN (03:48)
--- NOTE | 2018-09-30 03:54 | EDM.PDOC ---
ED HPI GENERAL MEDICAL PROBLEM - General Chief Complaint: Abdominal Pain Stated Complaint: ABD PAIN Time Seen by Provider: 09/30/18 03:39 - History of Present Illness INITIAL COMMENTS - FREE TEXT/NARRATIVE: HISTORY AND PHYSICAL: History of present illness: The patient is a 33-year-old female with a long-standing history of alcoholic pancreatitis and multiple ER visits and admissions here, this being her sixth visit this year to our ER, who has had multiple workups in the past and in fact finally was able to see gastroenterology at [facility] in [place], Dr. Nova, who performed an abdominal MRI on August 29. That MRI revealed results showing a large irregular pancreatic head mass which is increased in sized from an MRI dated March 2018 and it was felt that it could represent an inflammatory or neoplastic process. The patient says that her care from a GI standpoint was transferred to [facility] and she was there last week to have a biopsy of this mass. She said she is not aware of the results and they have not contacted her with those testing results. Prior to this, back in June the patient was on Xarelto for a portal vein thrombosis and she said that she ran out of the Xarelto and has not taken it since and she has not had a primary care physician visit since June. She says she has a scheduled clinic visit today to address the need for the Xarelto and any medication refills. She has nobody to manage her pain management and she has no pain medication at home. She said that after she left [facility] last week they did not specifically mention if she needs to be on the Xarelto and they did not address any pain management at that time. She said says she is not drinking alcohol and that the pain episodes she has been not really have any particular trigger. The patient says the pain she is experiencing this morning started yesterday and was on and off in intensity and seemed to get worse about 2 AM, approximately 2 hours ago so she came here for evaluation. The patient says the pain is in the epigastric area and seems to radiate to her back and is not localized in the right or the left upper quadrants and there is no lower abdominal pain. She said she has never been prescribed pain medications for home by a provider or pain management doctor and usually gets pain relief when she's here in the ED or admitted to the hospital. Review of systems: As per history of present illness and below otherwise all systems reviewed and negative. Past medical history: As per history of present illness and as reviewed below otherwise noncontributory. Surgical history: As per history of present illness and as reviewed below otherwise noncontributory. Social history: No reported history of drug or alcohol abuse. Family history: As per history of present illness and as reviewed below otherwise noncontributory. Physical exam: General: Well-developed well-nourished female who is nontoxic and vital signs are noted by me. HEENT: Atraumatic, normocephalic, negative for conjunctival pallor or scleral icterus, mucous membranes moist, throat clear, neck supple, nontender, trachea midline. Lungs: Clear to auscultation, breath sounds equal bilaterally, chest nontender. Heart: S1S2, regular rate and rhythm no overt murmurs. Abdomen: Soft, nondistended, mild epigastric tenderness no rebound or guarding. Negative for masses or hepatosplenomegaly. Negative for costovertebral tenderness. Bowel sounds are hypoactive Pelvis: Stable nontender. Genitourinary: Deferred. Rectal: Deferred. Extremities: Atraumatic, negative for cords or calf pain. Neurovascular unremarkable. Pedal edema or leg asymmetry Neuro: Awake, alert, oriented. Cranial nerves II through XII unremarkable. Cerebellum unremarkable. Motor and sensory unremarkable throughout. Exam nonfocal. Diagnostics: BC CMP amylase lipase INR alcohol level H. pylori UA UCG CT scan of the abdomen and pelvis urine culture Therapeutics: IV fluids Zofran Dilaudid Rocephin MRI report from August 29 was reviewed by me--this indicates increase in size of a pancreatic head mass which measures 6 x 5 cm and there is dilatation of the main pancreatic duct in the head of the pancreas measuring up to 1.2 cm and is worsened from her prior study of March 2018. This mass is abutting the third portion of the duodenum and obstructs the superior mesenteric vein. Patient's prior lipase values were reviewed by me. On July 24 it was 1888, on August 12 it was 861 and on Aug 20 it was 1213. 0534: Case was discussed with Dr. Isaacs our hospitalist who accepts the patient for observation admission pending the CT scan results do not indicate anything emergent that needs to be addressed by gastroenterology. I discussed all testing results with the patient and she is agreeable for observation admission. Impression: Acute on chronic pancreatitis with Abdominal pain with history of pancreatic head mass Asymptomatic UTI Definitive disposition and diagnosis as appropriate pending reevaluation and review of above. epigastric Pain Score (Numeric/FACES): 8 - Related Data Allergies Allergy/AdvReac Type Severity Reaction Status Date / Time No Known Allergies Allergy Verified 09/30/18 03:38 Home Meds: Home Meds . 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 (See Below) Musculoskeletal History: Reports: None Neurological History: Reports: None Psychiatric History: Reports: Addiction Other Psychiatric History: ETOH Endocrine/Metabolic History: Reports: None Hematologic History: Reports: None Immunologic History: Reports: None Oncologic (Cancer) History: Reports: None Dermatologic History: Reports: None - Infectious Disease History Infectious Disease History: Reports: Chicken Pox - Past Surgical History Head Surgeries/Procedures: Reports: None HEENT Surgical History: Reports: None Cardiovascular Surgical History: Reports: None Respiratory Surgical History: Reports: None GI Surgical History: Reports: None Female Surgical History: Reports: None Endocrine Surgical History: Reports: None Neurological Surgical History: Reports: None Musculoskeletal Surgical History: Reports: None Oncologic Surgical History: Reports: None Dermatological Surgical History: Reports: None Social & Family History - Family History Family Medical History: Noncontributory Cardiac: Reports: IN - Tobacco Use Smoking Status *Q: Never Smoker - Caffeine Use Caffeine Use: Reports: Soda - Recreational Drug Use Recreational Drug Use: No - Living Situation & Occupation Living situation: Reports: Single Occupation: Unemployed ED ROS GENERAL - Review of Systems Review Of Systems: ROS reveals no pertinent complaints other than HPI. ED EXAM, GENERAL - Physical Exam Exam: See Below (see Dictation) Course - Vital Signs Last Recorded V/S: Last Vital Signs Temp 36.2 C 09/30/18 03:30 Pulse 72 09/30/18 05:06 Resp 18 09/30/18 05:06 BP 131/88 09/30/18 05:06 Pulse Ox 97 09/30/18 05:06 - Orders/Labs/Meds Orders: Active Orders 24 hr Category Date Time Status Patient Status [ADT] Stat ADT 09/30/18 06:00 Ordered CULTURE URINE [RM] Stat Lab 09/30/18 03:40 Received Sodium Chloride 0.9% [Normal Saline] 1,000 ml Med 09/30/18 06:00 Active IV ASDIRECTED Sodium Chloride 0.9% [Saline Flush] Med 09/30/18 03:48 Active 10 ml FLUSH ASDIRECTED PRN Sodium Chloride 0.9% [Saline Flush] Med 09/30/18 03:48 Active 2.5 ml FLUSH ASDIRECTED PRN Saline Lock Insert [OM.PC] Stat Oth 09/30/18 03:46 Ordered Medication Orders Sodium Chloride (Normal Saline) 1,000 mls @ 125 mls/hr IV ASDIRECTED CARLITOS Last Admin: 09/30/18 05:55 Dose: 125 mls/hr Sodium Chloride (Saline Flush) 10 ml FLUSH ASDIRECTED PRN PRN Reason: Keep Vein Open Sodium Chloride (Saline Flush) 2.5 ml FLUSH ASDIRECTED PRN PRN Reason: Keep Vein Open Labs: Laboratory Tests 09/30/18 09/30/18 09/30/18 Range/Units 03:40 03:40 03:50 WBC 9.27 (4.0-11.0) K/uL RBC 4.32 (4.30-5.90) M/uL Hgb 12.7 (12.0-16.0) g/dL Hct 37.8 (36.0-46.0) % MCV 87.5 (80.0-98.0) fL MCH 29.4 (27.0-32.0) pg MCHC 33.6 (31.0-37.0) g/dL RDW Std Deviation 42.4 (28.0-62.0) fl RDW Coeff of [place] 13 (11.0-15.0) % Plt Count 374 (150-400) K/uL MPV 8.90 (7.40-12.00) fL Neut % (Auto) 46.6 L (48.0-80.0) % Lymph % (Auto) 39.3 (16.0-40.0) % Coffee % (Auto) 9.6 (0.0-15.0) % Eos % (Auto) 4.1 (0.0-7.0) % Baso % (Auto) 0.4 (0.0-1.5) % Neut # (Auto) 4.3 (1.4-5.7) K/uL Lymph # (Auto) 3.6 H (0.6-2.4) K/uL Coffee # (Auto) 0.9 H (0.0-0.8) K/uL Eos # (Auto) 0.4 (0.0-0.7) K/uL Baso # (Auto) 0.0 (0.0-0.1) K/uL Nucleated RBC % 0.0 /100WBC Nucleated RBCs # 0 K/uL INR Sodium (136-145) mmol/L Potassium (3.5-5.1) mmol/L Chloride (98-107) mmol/L Carbon Dioxide (21.0-32.0) mmol/L BUN (7.0-18.0) mg/dL Creatinine (0.6-1.0) mg/dL Est Cr Clr Drug Dosing mL/min Estimated GFR (MDRD) ml/min Glucose (74-106) mg/dL Calcium (8.5-10.1) mg/dL Total Bilirubin (0.2-1.0) mg/dL AST (15-37) IU/L ALT (14-63) IU/L Alkaline Phosphatase (46-116) U/L Total Protein (6.4-8.2) g/dL Albumin (3.4-5.0) g/dL Globulin (2.6-4.0) g/dL Albumin/Globulin Ratio (0.9-1.6) Amylase (25-115) U/L Lipase (73-393) U/L Urine Color YELLOW Urine Appearance SLT CLOUDY Urine pH 6.0 (5.0-8.0) Ur Specific [place] 1.015 (1.001-1.035) Urine Protein NEGATIVE (NEGATIVE) mg/dL Urine Glucose (UA) NEGATIVE (NEGATIVE) mg/dL Urine Ketones NEGATIVE (NEGATIVE) mg/dL Urine Occult Blood TRACE-INTACT H (NEGATIVE) Urine Nitrite NEGATIVE (NEGATIVE) Urine Bilirubin NEGATIVE (NEGATIVE) Urine Urobilinogen 0.2 (<2.0) EU/dL Ur Leukocyte Esterase SMALL H (NEGATIVE) Urine RBC 0-2 (0-2/HPF) Urine WBC 8-10 (0-5/HPF) Ur Epithelial Cells MODERATE (NONE-FEW) Urine Bacteria 1+ H (NEGATIVE) Urine HCG, Qual NEGATIVE (NEGATIVE) Ethyl Alcohol mg/dL H. pylori IgG Antibody (NEG) 09/30/18 09/30/18 09/30/18 Range/Units 03:50 03:50 03:50 WBC (4.0-11.0) K/uL RBC (4.30-5.90) M/uL Hgb (12.0-16.0) g/dL Hct (36.0-46.0) % MCV (80.0-98.0) fL MCH (27.0-32.0) pg MCHC (31.0-37.0) g/dL RDW Std Deviation (28.0-62.0) fl RDW Coeff of [place] (11.0-15.0) % Plt Count (150-400) K/uL MPV (7.40-12.00) fL Neut % (Auto) (48.0-80.0) % Lymph % (Auto) (16.0-40.0) % Coffee % (Auto) (0.0-15.0) % Eos % (Auto) (0.0-7.0) % Baso % (Auto) (0.0-1.5) % Neut # (Auto) (1.4-5.7) K/uL Lymph # (Auto) (0.6-2.4) K/uL Coffee # (Auto) (0.0-0.8) K/uL Eos # (Auto) (0.0-0.7) K/uL Baso # (Auto) (0.0-0.1) K/uL Nucleated RBC % /100WBC Nucleated RBCs # K/uL INR 0.94 Sodium 141 (136-145) mmol/L Potassium 4.3 (3.5-5.1) mmol/L Chloride 104 (98-107) mmol/L Carbon Dioxide 24.7 (21.0-32.0) mmol/L BUN 13 (7.0-18.0) mg/dL Creatinine 0.6 (0.6-1.0) mg/dL Est Cr Clr Drug Dosing 116.24 mL/min Estimated GFR (MDRD) > 60.0 ml/min Glucose 93 (74-106) mg/dL Calcium 9.1 (8.5-10.1) mg/dL Total Bilirubin 0.2 (0.2-1.0) mg/dL AST 15 (15-37) IU/L ALT 29 (14-63) IU/L Alkaline Phosphatase 85 (46-116) U/L Total Protein 7.7 (6.4-8.2) g/dL Albumin 3.6 (3.4-5.0) g/dL Globulin 4.1 H (2.6-4.0) g/dL Albumin/Globulin Ratio 0.9 (0.9-1.6) Amylase 296 H (25-115) U/L Lipase 3009 H (73-393) U/L Urine Color Urine Appearance Urine pH (5.0-8.0) Ur Specific [place] (1.001-1.035) Urine Protein (NEGATIVE) mg/dL Urine Glucose (UA) (NEGATIVE) mg/dL Urine Ketones (NEGATIVE) mg/dL Urine Occult Blood (NEGATIVE) Urine Nitrite (NEGATIVE) Urine Bilirubin (NEGATIVE) Urine Urobilinogen (<2.0) EU/dL Ur Leukocyte Esterase (NEGATIVE) Urine RBC (0-2/HPF) Urine WBC (0-5/HPF) Ur Epithelial Cells (NONE-FEW) Urine Bacteria (NEGATIVE) Urine HCG, Qual (NEGATIVE) Ethyl Alcohol < 3.0 mg/dL H. pylori IgG Antibody NEGATIVE (NEG) Meds: Medications Generic Name Dose Route Start Last Admin Trade Name Freq PRN Reason Stop Dose Admin Sodium Chloride 1,000 mls @ 125 mls/hr 09/30/18 06:00 09/30/18 05:55 Normal Saline IV 125 mls/hr ASDIRECTED CARLITOS Administration Sodium Chloride 10 ml 09/30/18 03:48 Saline Flush FLUSH ASDIRECTED PRN Keep Vein Open Sodium Chloride 2.5 ml 09/30/18 03:48 Saline Flush FLUSH ASDIRECTED PRN Keep Vein Open Discontinued Medications Generic Name Dose Route Start Last Admin Trade Name Freq PRN Reason Stop Dose Admin Hydromorphone HCl 1 mg 09/30/18 03:48 09/30/18 03:59 Dilaudid IVPUSH 09/30/18 03:49 1 mg ONETIME ONE Administration Hydromorphone HCl 1 mg 09/30/18 05:32 09/30/18 05:42 Dilaudid IVPUSH 09/30/18 05:33 1 mg ONETIME ONE Administration Sodium Chloride 1,000 mls @ 999 mls/hr 09/30/18 03:48 09/30/18 03:59 Normal Saline IV 09/30/18 04:48 999 mls/hr STAT ONE Administration Ceftriaxone Sodium/Dextrose 1 50 mls @ 100 mls/hr 09/30/18 04:35 09/30/18 04: 49 gm/ Premix IV 09/30/18 05:04 100 mls/hr ONETIME ONE Administration Iopamidol 100 ml 09/30/18 04:56 09/30/18 05:03 [id number] (76%) IVPUSH 09/30/18 04:57 100 ml ONETIME ONE Administration Ondansetron HCl 4 mg 09/30/18 03:48 09/30/18 04:00 Zofran IVPUSH 09/30/18 03:49 4 mg ONETIME ONE Administration Departure - Departure Time of Disposition: 06:01 Disposition: Refer to Observation Condition: Good Clinical Impression: Pancreatitis Qualifiers: Chronicity: acute Pancreatitis type: unspecified pancreatitis type Acute pancreatitis complication: unspecified Qualified Code(s): K85.90 - Acute pancreatitis without necrosis or infection, unspecified - Discharge Information Referrals: PCP,None [Primary Care Provider] - Forms: ED Department Discharge - My Orders Last 24 Hours: My Active Orders 09/30/18 03:40 CULTURE URINE [RM] Stat 09/30/18 03:46 Saline Lock Insert [OM.PC] Stat 09/30/18 03:48 Sodium Chloride 0.9% [Saline Flush] 10 ml FLUSH ASDIRECTED PRN Sodium Chloride 0.9% [Saline Flush] 2.5 ml FLUSH ASDIRECTED PRN 09/30/18 06:00 Patient Status [ADT] Stat Sodium Chloride 0.9% [Normal Saline] 1,000 ml IV ASDIRECTED - Assessment/Plan Last 24 Hours: My Active Orders 09/30/18 03:40 CULTURE URINE [RM] Stat 09/30/18 03:46 Saline Lock Insert [OM.PC] Stat 09/30/18 03:48 Sodium Chloride 0.9% [Saline Flush] 10 ml FLUSH ASDIRECTED PRN Sodium Chloride 0.9% [Saline Flush] 2.5 ml FLUSH ASDIRECTED PRN 09/30/18 06:00 Patient Status [ADT] Stat Sodium Chloride 0.9% [Normal Saline] 1,000 ml IV ASDIRECTED
[2018-09-30 04:19] LABS: CHLORIDE,CL 104 mmol/L (98-107); SODIUM,NA 141 mmol/L (136-145)
[2018-09-30] MEDS ORDERED: cefTRIAXone 1 GM in Premix Bag 1 BAG IV ONE (04:35)
[2018-09-30] MEDS ORDERED: Iopamidol 755 Mg/ML 100 ML Bottle IVPUSH ONE (04:56)
--- NOTE | 2018-09-30 05:56 | CT ---
INDICATION: Abdominal pain, history of pancreatic mass like lesion. TECHNIQUE: CT abdomen and pelvis acquired with IV contrast. 100 cc Isovue 370. COMPARISON: CT scan abdomen pelvis 03/05/2018. FINDINGS: Lower chest: Unremarkable. Liver: Unremarkable. Spleen: Unremarkable. Pancreas: Coalescence of mesenteric adenopathy versus mass anterior to the pancreatic body. This was not present on 03/05/2018. Ill-defined low-attenuation area within the pancreatic head. This can be better evaluated with MRI. Correlate with pancreatitis clinically. The superior mesenteric vein is not well visualized proximally and may be thrombosed. Gallbladder and bile ducts: Unremarkable. Kidneys: Unremarkable. Adrenal glands: Unremarkable. GI tract: Unremarkable. Appendix is normal. Vascular structures: Unremarkable. Lymph nodes: Unremarkable. Miscellaneous: Unremarkable. No free air. Small amount of free fluid in the pelvis. Pelvic Organs: Unremarkable. Bones: Unremarkable for age. IMPRESSION: Coalescence of mesenteric adenopathy versus mass involving the anterior pancreatic body. Pancreatitis cannot be excluded. Correlate with abnormal amylase and lipase. Ill-defined area within the pancreatic head. These findings can be further characterized with MRI on a nonemergent basis. The superior mesenteric vein is not visualized proximally and may be thrombosed. Signed by: Jose Diana MD @09/30/2018 5:43:[address]/Dictated by: Jose Diana MD @ 09/30/2018 5:43:00 AM (Electronically Signed)
[2018-09-30] MEDS ORDERED: Sodium Chloride 0.9% 1,000 ML IV SCH (06:00)
[2018-09-30] MEDS ORDERED: Ondansetron 4 MG/2 ML SDV IVPUSH PRN (08:01)
--- NOTE | 2018-09-30 08:01 | PCM.HP ---
H&P History of Present Illness - General Date of Service: 09/30/18 Admit Problem/Dx: Admission Diagnosis/Problem Admission Diagnosis/Problem Pancreatitis Source of Information: Patient, Old Records History Limitations: Reports: No Limitations - History of Present Illness Initial Comments - Free Text/Narative: This 33 year old female with pmh of acute on chronic alcoholic pancreatitis and pancreatic head mass presented to the ED early this morning with complaints of epigastric pain that continued to worsen. She reports this pain has been more constant since she was seen at the [facility] by Dr Zuniga GI for a EUS and biopsy of pancreatic mass. She was not given pain medications and was told to establish care with PCP back here in [place] for continued care. She denies fevers or chills. No chest pain or SOB. She reports this epigastric pain is sharp and constant, with radiation to the back. No diarrhea or black or bloody BMs. She reports she is sober and has not been drinking. In the ED CBC WNL, BMP WNL. Amylase 296, Lipase 3009. ETOH negative. 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 She was treated with 1 L NS and Dilaudid in the ED. She will be admitted observation for acute on chronic alcoholic pancreatitis. Establishing care with Dr Harper next week. epigastric Pain Score (Numeric/FACES): 6 - Related Data Allergies/Adverse Reactions: Allergies Allergy/AdvReac Type Severity Reaction Status Date / Time No Known Allergies Allergy Verified 09/30/18 03:38 Home Medications: Home Meds . 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 (See Below) Musculoskeletal History: Reports: None Neurological History: Reports: None Psychiatric History: Reports: Addiction Other Psychiatric History: ETOH Endocrine/Metabolic History: Reports: None Hematologic History: Reports: None Immunologic History: Reports: None Oncologic (Cancer) History: Reports: None Dermatologic History: Reports: None - Infectious Disease History Infectious Disease History: Reports: Chicken Pox - Past Surgical History Head Surgeries/Procedures: Reports: None HEENT Surgical History: Reports: None Cardiovascular Surgical History: Reports: None Respiratory Surgical History: Reports: None GI Surgical History: Reports: EGD (EUS with pancreatic head mass biopsy) Female Surgical History: Reports: None Endocrine Surgical History: Reports: None Neurological Surgical History: Reports: None Musculoskeletal Surgical History: Reports: None Oncologic Surgical History: Reports: None Dermatological Surgical History: Reports: None Social & Family History - Family History Family Medical History: Noncontributory Cardiac: Reports: OK - Tobacco Use Smoking Status *Q: Never Smoker Second Hand Smoke Exposure: No - Caffeine Use Caffeine Use: Reports: Soda Other Caffeine Use: 2 Diet Cokes a day - Alcohol Use Days Per Week of Alcohol Use: 6 Number of Drinks Per Day: 5 Total Drinks Per Week: 30 Date of Last Drink: 09/30/18 - Recreational Drug Use Recreational Drug Use: No - Living Situation & Occupation Living situation: Reports: Single Occupation: Unemployed H&P Review of Systems - Review of Systems: Review Of Systems: See Below General: Reports: No Symptoms. Denies: Fever, Chills, Malaise, Weakness HEENT: Reports: No Symptoms. Denies: Headaches, Sinus Congestion, Sore Throat Pulmonary: Reports: No Symptoms. Denies: Shortness of Breath Cardiovascular: Reports: No Symptoms. Denies: Chest Pain, Edema, Lightheadedness, Syncope Gastrointestinal: Reports: Abdominal Pain (epigastric). Denies: Black Stool, Bloody Stool, Constipation, Diarrhea, Nausea, Vomiting Genitourinary: Reports: No Symptoms. Denies: Dysuria, Frequency, Burning Skin: Reports: No Symptoms Psychiatric: Reports: No Symptoms Neurological: Reports: No Symptoms Hematologic/Lymphatic: Reports: No Symptoms Immunologic: Reports: No Symptoms Exam - Exam Exam: See Below - Vital Signs Vital Signs: Last Vital Signs Temp 97.3 F 09/30/18 07:15 Pulse 68 09/30/18 07:15 Resp 16 09/30/18 07:15 BP 118/70 09/30/18 07:15 Pulse Ox 98 09/30/18 07:15 Weight: 69.4 kg - Exam General: Alert, Oriented, Cooperative HEENT: Conjunctiva Clear, EACs Clear Lungs: Clear to Auscultation, Normal Respiratory Effort Cardiovascular: Regular Rate, Regular Rhythm, Normal S1, Normal S2 GI/Abdominal Exam: Normal Bowel Sounds, Soft, Tender (epigastric) Extremities: Normal Inspection, Normal Range of Motion, Non-Tender, No Pedal Edema Neuro Extensive - Mental Status: Alert, Oriented x3 Neuro Extensive - Motor, Sensory, Reflexes: CN II-XII Intact - Patient Data Lab Results Last 24 hrs: Laboratory Results - last 24 hr 09/30/18 09/30/18 09/30/18 Range/Units 03:40 03:40 03:50 WBC 9.27 (4.0-11.0) K/uL RBC 4.32 (4.30-5.90) M/uL Hgb 12.7 (12.0-16.0) g/dL Hct 37.8 (36.0-46.0) % MCV 87.5 (80.0-98.0) fL MCH 29.4 (27.0-32.0) pg MCHC 33.6 (31.0-37.0) g/dL RDW Std Deviation 42.4 (28.0-62.0) fl RDW Coeff of [place] 13 (11.0-15.0) % Plt Count 374 (150-400) K/uL MPV 8.90 (7.40-12.00) fL Neut % (Auto) 46.6 L (48.0-80.0) % Lymph % (Auto) 39.3 (16.0-40.0) % [place] % (Auto) 9.6 (0.0-15.0) % Eos % (Auto) 4.1 (0.0-7.0) % Baso % (Auto) 0.4 (0.0-1.5) % Neut # (Auto) 4.3 (1.4-5.7) K/uL Lymph # (Auto) 3.6 H (0.6-2.4) K/uL [place] # (Auto) 0.9 H (0.0-0.8) K/uL Eos # (Auto) 0.4 (0.0-0.7) K/uL Baso # (Auto) 0.0 (0.0-0.1) K/uL Nucleated RBC % 0.0 /100WBC Nucleated RBCs # 0 K/uL INR Sodium (136-145) mmol/L Potassium (3.5-5.1) mmol/L Chloride (98-107) mmol/L Carbon Dioxide (21.0-32.0) mmol/L BUN (7.0-18.0) mg/dL Creatinine (0.6-1.0) mg/dL Est Cr Clr Drug Dosing mL/min Estimated GFR (MDRD) ml/min Glucose (74-106) mg/dL Calcium (8.5-10.1) mg/dL Total Bilirubin (0.2-1.0) mg/dL AST (15-37) IU/L ALT (14-63) IU/L Alkaline Phosphatase (46-116) U/L Total Protein (6.4-8.2) g/dL Albumin (3.4-5.0) g/dL Globulin (2.6-4.0) g/dL Albumin/Globulin Ratio (0.9-1.6) Amylase (25-115) U/L Lipase (73-393) U/L Urine Color YELLOW Urine Appearance SLT CLOUDY Urine pH 6.0 (5.0-8.0) Ur Specific [place] 1.015 (1.001-1.035) Urine Protein NEGATIVE (NEGATIVE) mg/dL Urine Glucose (UA) NEGATIVE (NEGATIVE) mg/dL Urine Ketones NEGATIVE (NEGATIVE) mg/dL Urine Occult Blood TRACE-INTACT H (NEGATIVE) Urine Nitrite NEGATIVE (NEGATIVE) Urine Bilirubin NEGATIVE (NEGATIVE) Urine Urobilinogen 0.2 (<2.0) EU/dL Ur Leukocyte Esterase SMALL H (NEGATIVE) Urine RBC 0-2 (0-2/HPF) Urine WBC 8-10 (0-5/HPF) Ur Epithelial Cells MODERATE (NONE-FEW) Urine Bacteria 1+ H (NEGATIVE) Urine HCG, Qual NEGATIVE (NEGATIVE) Ethyl Alcohol mg/dL H. pylori IgG Antibody (NEG) 09/30/18 09/30/18 09/30/18 Range/Units 03:50 03:50 03:50 WBC (4.0-11.0) K/uL RBC (4.30-5.90) M/uL Hgb (12.0-16.0) g/dL Hct (36.0-46.0) % MCV (80.0-98.0) fL MCH (27.0-32.0) pg MCHC (31.0-37.0) g/dL RDW Std Deviation (28.0-62.0) fl RDW Coeff of [place] (11.0-15.0) % Plt Count (150-400) K/uL MPV (7.40-12.00) fL Neut % (Auto) (48.0-80.0) % Lymph % (Auto) (16.0-40.0) % [place] % (Auto) (0.0-15.0) % Eos % (Auto) (0.0-7.0) % Baso % (Auto) (0.0-1.5) % Neut # (Auto) (1.4-5.7) K/uL Lymph # (Auto) (0.6-2.4) K/uL [place] # (Auto) (0.0-0.8) K/uL Eos # (Auto) (0.0-0.7) K/uL Baso # (Auto) (0.0-0.1) K/uL Nucleated RBC % /100WBC Nucleated RBCs # K/uL INR 0.94 Sodium 141 (136-145) mmol/L Potassium 4.3 (3.5-5.1) mmol/L Chloride 104 (98-107) mmol/L Carbon Dioxide 24.7 (21.0-32.0) mmol/L BUN 13 (7.0-18.0) mg/dL Creatinine 0.6 (0.6-1.0) mg/dL Est Cr Clr Drug Dosing 116.24 mL/min Estimated GFR (MDRD) > 60.0 ml/min Glucose 93 (74-106) mg/dL Calcium 9.1 (8.5-10.1) mg/dL Total Bilirubin 0.2 (0.2-1.0) mg/dL AST 15 (15-37) IU/L ALT 29 (14-63) IU/L Alkaline Phosphatase 85 (46-116) U/L Total Protein 7.7 (6.4-8.2) g/dL Albumin 3.6 (3.4-5.0) g/dL Globulin 4.1 H (2.6-4.0) g/dL Albumin/Globulin Ratio 0.9 (0.9-1.6) Amylase 296 H (25-115) U/L Lipase 3009 H (73-393) U/L Urine Color Urine Appearance Urine pH (5.0-8.0) Ur Specific [place] (1.001-1.035) Urine Protein (NEGATIVE) mg/dL Urine Glucose (UA) (NEGATIVE) mg/dL Urine Ketones (NEGATIVE) mg/dL Urine Occult Blood (NEGATIVE) Urine Nitrite (NEGATIVE) Urine Bilirubin (NEGATIVE) Urine Urobilinogen (<2.0) EU/dL Ur Leukocyte Esterase (NEGATIVE) Urine RBC (0-2/HPF) Urine WBC (0-5/HPF) Ur Epithelial Cells (NONE-FEW) Urine Bacteria (NEGATIVE) Urine HCG, Qual (NEGATIVE) Ethyl Alcohol < 3.0 mg/dL H. 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): 767150235 ICD Code: I81 - PORTAL VEIN THROMBOSIS Status: Chronic Current Visit: No Problem List Initiated/Reviewed/Updated: Yes Orders Last 24hrs: Active Orders 24 hr Category Date Time Status Patient Status [ADT] Stat ADT 09/30/18 06:00 Active CULTURE URINE [RM] Stat Lab 09/30/18 03:40 Received Sodium Chloride 0.9% [Normal Saline] 1,000 ml Med 09/30/18 06:00 Active IV ASDIRECTED Sodium Chloride 0.9% [Saline Flush] Med 09/30/18 03:48 Active 10 ml FLUSH ASDIRECTED PRN Sodium Chloride 0.9% [Saline Flush] Med 09/30/18 03:48 Active 2.5 ml FLUSH ASDIRECTED PRN Saline Lock Insert [OM.PC] Stat Oth 09/30/18 03:46 Ordered Medication Orders Sodium Chloride (Normal Saline) 1,000 mls @ 125 mls/hr IV ASD[facility]RECTED [facility] Last Admin: 09/30/18 05:55 Dose: 125 mls/hr Sodium Chloride (Saline Flush) 10 ml FLUSH ASDIRECTED PRN PRN Reason: Keep Vein Open Sodium Chloride (Saline Flush) 2.5 ml FLUSH ASDIRECTED PRN PRN Reason: Keep Vein Open Assessment/Plan Comment:: This 33 year old female admitted with acute on chronic alcoholic pancreatitis 1. Acute on chronic alcoholic pancreatitis: Dilaudid 1 mg PRN pain. Supplement with thiamine and folic acid. Continues to have pain, will keep NPO overnight. Reports not drinking, will place on CIWAA protocol. Protonix IV Regarding CT findings, I was able to speak with SEBASTIEN Aquino, Dr Zuniga's nurse. Dr Zuniga [place] out [place]. She was able to send me pathology reports from biopsy sandip-pancreatic lymph node and pancreas head were negative for malignancy. 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 He recommended strong consideration of complete alcohol cessation and structured chemical dependency rehab program. He recommended no further treatment with him or his facility, further management to be on referring physician. Dr Nova, GI in [place] referred her to him for this evaluation. 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 He recommended no anticoagulation for the fear of possible hemorrhagic cyst transformation. He recommended treatment now for acute pancreatitis with fluid and pain control. I discussed alcohol treatment with Shellie, she reports she wants to try outpatient. Will give resources for Human services, AA meetings and [facility] pamphlet. She at this time is not looking for inpatient treatment. Dispo: 1-2 days pending improvement.
[2018-09-30] MEDS ORDERED: Enoxaparin 40 MG/0.4 ML Syringe SUBCUT SCH (08:15)
[2018-09-30] MEDS: HYDROmorphone 2 MG/ML Syringe IVPUSH PRN ×7 (08:37→22:27)
[2018-09-30] MEDS: Sodium Chloride 0.9% 1,000 ML IV SCH ×2 (09:14→20:23)
[2018-09-30] MEDS ORDERED: LORazepam 2 MG/ML SDV IVPUSH PRN (14:06)
[2018-09-30] MEDS: Pantoprazole 40 MG in Sodium Chloride 0.9% 10 ML IVPUSH SCH (14:22)
[2018-09-30] MEDS: Thiamine 200 MG/2 ML MDV IV SCH (20:18)
[2018-09-30] MEDS: Folic Acid 50 MG/10 ML MDV SUBCUT SCH (20:18)
[2018-10-01] MEDS: HYDROmorphone 2 MG/ML Syringe IVPUSH PRN ×4 (00:24→06:38)
[2018-10-01] MEDS: Sodium Chloride 0.9% 1,000 ML IV SCH ×4 (01:34→19:16)
[2018-10-01 06:57] LABS: CHLORIDE,CL 105 mmol/L (98-107); SODIUM,NA 139 mmol/L (136-145)
--- NOTE | 2018-10-01 11:32 | PCM.PN ---
- General Info Date of Service: 10/01/18 Subjective Update: The patient is a 33 year old female admitted for acute on chronic alcoholic pancreatitis. Yesterday and overnight she was receiving Dilaudid every 2 hours. This morning she stated she was feeling better and wanted to go home. We advanced her diet to clear liquids and stopped the pain medication but then her pain increased too much and she didn't feel like she could go home anymore. - Review of Systems General: Reports: No Symptoms HEENT: Reports: No Symptoms Pulmonary: Reports: No Symptoms Cardiovascular: Reports: No Symptoms Gastrointestinal: Reports: Abdominal Pain Genitourinary: Reports: No Symptoms Musculoskeletal: Reports: Back Pain Skin: Reports: No Symptoms Neurological: Reports: No Symptoms Psychiatric: Reports: No Symptoms - Patient Data Vitals - Most Recent: Last Vital Signs Temp 97.4 F 10/01/18 08:03 Pulse 68 10/01/18 08:03 Resp 18 10/01/18 08:03 BP 148/104 H 10/01/18 08:03 Pulse Ox 98 10/01/18 04:00 Weight - Most Recent: 69.4 kg I&O - Last 24 Hours: Intake & Output 09/30/18 10/01/18 10/01/18 22:59 06:59 14:59 Intake Total 2735 3378 1000 Output Total 800 700 Balance 1935 2678 1000 Lab Results Last 24 Hours: Laboratory Results - last 24 hr 10/01/18 10/01/18 Range/Units 05:59 05:59 WBC 8.70 (4.0-11.0) K/uL RBC 3.77 L (4.30-5.90) M/uL Hgb 10.8 L (12.0-16.0) g/dL Hct 33.6 L (36.0-46.0) % MCV 89.1 (80.0-98.0) fL MCH 28.6 (27.0-32.0) pg MCHC 32.1 (31.0-37.0) g/dL RDW Std Deviation 42.8 (28.0-62.0) fl RDW Coeff of [place] 13 (11.0-15.0) % Plt Count 320 (150-400) K/uL MPV 9.00 (7.40-12.00) fL Neut % (Auto) 51.6 (48.0-80.0) % Lymph % (Auto) 33.7 (16.0-40.0) % [place] % (Auto) 10.5 (0.0-15.0) % Eos % (Auto) 3.9 (0.0-7.0) % Baso % (Auto) 0.3 (0.0-1.5) % Neut # (Auto) 4.5 (1.4-5.7) K/uL Lymph # (Auto) 2.9 H (0.6-2.4) K/uL [place] # (Auto) 0.9 H (0.0-0.8) K/uL Eos # (Auto) 0.3 (0.0-0.7) K/uL Baso # (Auto) 0.0 (0.0-0.1) K/uL Nucleated RBC % 0.0 /100WBC Nucleated RBCs # 0 K/uL Sodium 139 (136-145) mmol/L Potassium 3.6 (3.5-5.1) mmol/L Chloride 105 (98-107) mmol/L Carbon Dioxide 27.6 (21.0-32.0) mmol/L BUN 6 L (7.0-18.0) mg/dL Creatinine 0.5 L (0.6-1.0) mg/dL Est Cr Clr Drug Dosing 139.49 mL/min Estimated GFR (MDRD) > 60.0 ml/min Glucose 94 (74-106) mg/dL Calcium 8.3 L (8.5-10.1) mg/dL Total Bilirubin 0.2 (0.2-1.0) mg/dL AST 11 L (15-37) IU/L ALT 21 (14-63) IU/L Alkaline Phosphatase 68 (46-116) U/L Total Protein 6.4 (6.4-8.2) g/dL Albumin 3.0 L (3.4-5.0) g/dL Globulin 3.4 (2.6-4.0) g/dL Albumin/Globulin Ratio 0.9 (0.9-1.6) Lipase 1581 H (73-393) U/L Sky Results Last 24 Hours: Microbiology 09/30/18 03:40 Urine Culture - Final Urine, Clean Catch MIXED DAVID >100,000 CFU/ML Med Orders - Current: Current Medications Folic Acid (Folic Acid) 1 mg SUBCUT BEDTIME [facility] Last Admin: 09/30/18 20:18 Dose: 1 mg Hydromorphone HCl (Dilaudid) 1 mg IVPUSH Q3H PRN PRN Reason: Abdominal Pain Sodium Chloride (Normal Saline) 1,000 mls @ 175 mls/hr IV ASDIRECTED [facility] Last Admin: 10/01/18 07:44 Dose: 175 mls/hr Pantoprazole Sodium 40 mg/ (Sodium Chloride) 10 mls @ 300 mls/hr IVPUSH Q24H [facility] Last Admin: 09/30/18 14:22 Dose: 300 mls/hr Lorazepam (Ativan) 0 mg IVPUSH Q4H PRN; Protocol PRN Reason: CIWAA Ondansetron HCl (Zofran) 4 mg IVPUSH Q4H PRN PRN Reason: Nausea Last Admin: 10/01/18 06:43 Dose: 4 mg Sodium Chloride (Saline Flush) 10 ml FLUSH ASDIRECTED PRN PRN Reason: Keep Vein Open Sodium Chloride (Saline Flush) 2.5 ml FLUSH ASDIRECTED PRN PRN Reason: Keep Vein Open Thiamine HCl (Vitamin B-1) 100 mg IV BEDTIME [facility] Last Admin: 09/30/18 20:18 Dose: 100 mg Discontinued Medications Enoxaparin Sodium (Lovenox) 40 mg SUBCUT Q24H [facility] Hydromorphone HCl (Dilaudid) 1 mg IVPUSH ONETIME ONE Stop: 09/30/18 03:49 Last Admin: 09/30/18 03:59 Dose: 1 mg Hydromorphone HCl (Dilaudid) 1 mg IVPUSH ONETIME ONE Stop: 09/30/18 05:33 Last Admin: 09/30/18 05:42 Dose: 1 mg Hydromorphone HCl (Dilaudid) 1 mg IVPUSH Q2H PRN PRN Reason: Pain (severe 7-10) Last Admin: 10/01/18 06:38 Dose: 1 mg Sodium Chloride (Normal Saline) 1,000 mls @ 999 mls/hr IV STAT ONE Stop: 09/30/18 04:48 Last Admin: 09/30/18 03:59 Dose: 999 mls/hr Ceftriaxone Sodium/Dextrose 1 (gm/ Premix) 50 mls @ 100 mls/hr IV ONETIME ONE Stop: 09/30/18 05:04 Last Admin: 09/30/18 04:49 Dose: 100 mls/hr Sodium Chloride (Normal Saline) 1,000 mls @ 125 mls/hr IV ASDIRECTED [facility] Last Admin: 09/30/18 05:55 Dose: 125 mls/hr Sodium Chloride (Normal Saline) 1,000 mls @ 999 mls/hr IV .Bolus ONE Stop: 09/30/18 09:04 Last Admin: 09/30/18 08:05 Dose: 999 mls/hr Iopamidol (Isovue-370 (76%)) 100 ml IVPUSH ONETIME ONE Stop: 09/30/18 04:57 Last Admin: 09/30/18 05:03 Dose: 100 ml Ondansetron HCl (Zofran) 4 mg IVPUSH ONETIME ONE Stop: 09/30/18 03:49 Last Admin: 09/30/18 04:00 Dose: 4 mg - Exam Quality Assessment: No: Supplemental Oxygen General: Alert, Oriented, Cooperative HEENT: Pupils Equal, Pupils Reactive, EOMI, Mucous Membr. Moist/[place] Lungs: Clear to Auscultation, Normal Respiratory Effort Cardiovascular: Regular Rate, Regular Rhythm GI/Abdominal Exam: Normal Bowel Sounds, Soft, Tender (upper quadrants R>L) Extremities: No Pedal Edema Skin: Warm, Dry Neurological: No New Focal Deficit Psy/Mental Status: Alert, Normal Affect, Normal Mood - Problem List Review Problem List Initiated/Reviewed/Updated: Yes - My Orders Last 24 Hours: My Active Orders 10/01/18 11:26 HYDROmorphone [Dilaudid] 1 mg IVPUSH Q3H PRN 10/01/18 Breakfast Clear Liquid Diet [DIET] - Plan Plan:: This 33 year old female admitted with acute on chronic alcoholic pancreatitis 1. Acute on chronic alcoholic pancreatitis: Dilaudid 1 mg PRN pain. Supplement with thiamine and folic acid. Tried advancing diet and stopping pain medication to see if she was ready for discharge but pain became too intense. Reports not drinking, will place on CIWAA protocol. Protonix IV Regarding CT findings, I was able to speak with Kenia RN, Dr Zuniga's nurse. Dr Zuniga currently is out of the [place]. She was able to send me pathology reports from biopsy sandip-pancreatic lymph node and pancreas head were negative for malignancy. 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 He recommended strong consideration of complete alcohol cessation and structured chemical dependency rehab program. He recommended no further treatment with him or his facility, further management to be on referring physician. Dr Nova, in [place] referred her to him for this evaluation. 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 He recommended no anticoagulation for the fear of possible hemorrhagic cyst transformation. He recommended treatment now for acute pancreatitis with fluid and pain control. I discussed alcohol treatment with Shellie, she reports she wants to try outpatient. Will give resources for Human services, AA meetings and [facility] pamphlet. She at this time is not looking for inpatient treatment. Dispo: 1-2 days pending improvement.
[2018-10-01] MEDS: HYDROmorphone 1 MG/ML Syringe IVPUSH PRN ×4 (11:38→21:18)
[2018-10-01] MEDS: Pantoprazole 40 MG in Sodium Chloride 0.9% 10 ML IVPUSH SCH (13:21)
[2018-10-01] MEDS: Folic Acid 50 MG/10 ML MDV SUBCUT SCH (20:53)
[2018-10-01] MEDS: Thiamine 200 MG/2 ML MDV IV SCH (20:53)
[2018-10-02] MEDS: HYDROmorphone 1 MG/ML Syringe IVPUSH PRN ×4 (00:43→10:47)
[2018-10-02] MEDS: Sodium Chloride 0.9% 1,000 ML IV SCH ×2 (00:47→06:26)
[2018-10-02 07:05] LABS: CHLORIDE,CL 104 mmol/L (98-107); SODIUM,NA 137 mmol/L (136-145)
--- NOTE | 2018-10-02 09:16 | PCM.DCSUM1 ---
Discharge Summary - Discharge Data Discharge Date: 10/02/18 Discharge Disposition: Home, Self-Care 01 Condition: Good - Patient Summary/Data Hospital Course: 33 year old female with pmh of acute on chronic alcoholic pancreatitis and pancreatic head mass who was admitted for acute on chronic pancreatitis. He presented to the ED with complaints of epigastric pain that continued to worsen. She reports this pain has been more constant since she was seen at the [facility] by Dr Zuniga GI for a EUS and biopsy of pancreatic mass. The biopsies have been negative for malignancy. She reports she is sober and has not been drinking. In the ED CBC WNL, BMP WNL. Amylase 296, Lipase 3009. ETOH negative. 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 She was treated with 1 L NS and Dilaudid in the ED. She will be admitted observation for acute on chronic alcoholic pancreatitis. She was treated with IV fluids and prn pain medications with improvement in her symptoms. We spoke with Dr. 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 Today she is requesting discharge. She was discharged home to have follow up with Dr. Harper. - Discharge Plan Home Medications: Home Meds . [No Known Home Meds] 08/12/18 [History] Referrals: Jarrett Harper MD [Physician] - 10/10/18 10:00 am - Discharge Summary/Plan Comment DC Time >30 min.: No - Patient Data Vitals - Most Recent: Last Vital Signs Temp 35.8 C 10/02/18 04:00 Pulse 79 10/02/18 04:00 Resp 18 10/02/18 04:00 BP 160/95 H 10/02/18 04:00 Pulse Ox 100 10/02/18 04:00 Weight - Most Recent: 69.4 kg I&O - Last 24 hours: Intake & Output 10/01/18 10/02/18 10/02/18 22:59 06:59 14:59 Intake Total 3955 Balance 3955 Lab Results - Last 24 hrs: Laboratory Results - last 24 hr 10/02/18 10/02/18 Range/Units 05:44 05:44 WBC 7.19 (4.0-11.0) K/uL RBC 3.61 L (4.30-5.90) M/uL Hgb 10.2 L (12.0-16.0) g/dL Hct 31.3 L (36.0-46.0) % MCV 86.7 (80.0-98.0) fL MCH 28.3 (27.0-32.0) pg MCHC 32.6 (31.0-37.0) g/dL RDW Std Deviation 41.8 (28.0-62.0) fl RDW Coeff of [place] 13 (11.0-15.0) % Plt Count 310 (150-400) K/uL MPV 9.30 (7.40-12.00) fL Neut % (Auto) 57.8 (48.0-80.0) % Lymph % (Auto) 26.1 (16.0-40.0) % [place] % (Auto) 12.5 (0.0-15.0) % Eos % (Auto) 3.3 (0.0-7.0) % Baso % (Auto) 0.3 (0.0-1.5) % Neut # (Auto) 4.2 (1.4-5.7) K/uL Lymph # (Auto) 1.9 (0.6-2.4) K/uL [place] # (Auto) 0.9 H (0.0-0.8) K/uL Eos # (Auto) 0.2 (0.0-0.7) K/uL Baso # (Auto) 0.0 (0.0-0.1) K/uL Nucleated RBC % 0.0 /100WBC Nucleated RBCs # 0 K/uL Sodium 137 (136-145) mmol/L Potassium 3.6 (3.5-5.1) mmol/L Chloride 104 (98-107) mmol/L Carbon Dioxide 21.8 (21.0-32.0) mmol/L BUN 4 L (7.0-18.0) mg/dL Creatinine 0.5 L (0.6-1.0) mg/dL Est Cr Clr Drug Dosing 139.49 mL/min Estimated GFR (MDRD) > 60.0 ml/min Glucose 75 (74-106) mg/dL Calcium 8.3 L (8.5-10.1) mg/dL Total Bilirubin 0.5 (0.2-1.0) mg/dL AST 11 L (15-37) IU/L ALT 19 (14-63) IU/L Alkaline Phosphatase 64 (46-116) U/L Total Protein 6.3 L (6.4-8.2) g/dL Albumin 2.8 L (3.4-5.0) g/dL Globulin 3.5 (2.6-4.0) g/dL Albumin/Globulin Ratio 0.8 L (0.9-1.6) Lipase 2518 H (73-393) U/L CHRISTINE Results - Last 24 hrs: Microbiology 09/30/18 03:40 Urine Culture - Final Urine, Clean Catch MIXED DAVID >100,000 CFU/ML Med Orders - Current: Current Medications Folic Acid (Folic Acid) 1 mg SUBCUT BEDTIME [facility] Last Admin: 10/01/18 20:53 Dose: 1 mg Hydromorphone HCl (Dilaudid) 1 mg IVPUSH Q3H PRN PRN Reason: Abdominal Pain Last Admin: 10/02/18 06:55 Dose: 1 mg Sodium Chloride (Normal Saline) 1,000 mls @ 175 mls/hr IV ASDIRECTED [facility] Last Admin: 10/02/18 06:26 Dose: 175 mls/hr Pantoprazole Sodium 40 mg/ (Sodium Chloride) 10 mls @ 300 mls/hr IVPUSH Q24H [facility] Last Admin: 10/01/18 13:21 Dose: 300 mls/hr Lorazepam (Ativan) 0 mg IVPUSH Q4H PRN; Protocol PRN Reason: CIWAA Ondansetron HCl (Zofran) 4 mg IVPUSH Q4H PRN PRN Reason: Nausea Last Admin: 10/01/18 06:43 Dose: 4 mg Sodium Chloride (Saline Flush) 10 ml FLUSH ASDIRECTED PRN PRN Reason: Keep Vein Open Sodium Chloride (Saline Flush) 2.5 ml FLUSH ASDIRECTED PRN PRN Reason: Keep Vein Open Thiamine HCl (Vitamin B-1) 100 mg IV BEDTIME [facility] Last Admin: 10/01/18 20:53 Dose: 100 mg Discontinued Medications Enoxaparin Sodium (Lovenox) 40 mg SUBCUT Q24H [facility] Hydromorphone HCl (Dilaudid) 1 mg IVPUSH ONETIME ONE Stop: 09/30/18 03:49 Last Admin: 09/30/18 03:59 Dose: 1 mg Hydromorphone HCl (Dilaudid) 1 mg IVPUSH ONETIME ONE Stop: 09/30/18 05:33 Last Admin: 09/30/18 05:42 Dose: 1 mg Hydromorphone HCl (Dilaudid) 1 mg IVPUSH Q2H PRN PRN Reason: Pain (severe 7-10) Last Admin: 10/01/18 06:38 Dose: 1 mg Sodium Chloride (Normal Saline) 1,000 mls @ 999 mls/hr IV STAT ONE Stop: 09/30/18 04:48 Last Admin: 09/30/18 03:59 Dose: 999 mls/hr Ceftriaxone Sodium/Dextrose 1 (gm/ Premix) 50 mls @ 100 mls/hr IV ONETIME ONE Stop: 09/30/18 05:04 Last Admin: 09/30/18 04:49 Dose: 100 mls/hr Sodium Chloride (Normal Saline) 1,000 mls @ 125 mls/hr IV ASDIRECTED [facility] Last Admin: 09/30/18 05:55 Dose: 125 mls/hr Sodium Chloride (Normal Saline) 1,000 mls @ 999 mls/hr IV .Bolus ONE Stop: 09/30/18 09:04 Last Admin: 09/30/18 08:05 Dose: 999 mls/hr Iopamidol (Isovue-370 (76%)) 100 ml IVPUSH ONETIME ONE Stop: 09/30/18 04:57 Last Admin: 09/30/18 05:03 Dose: 100 ml Ondansetron HCl (Zofran) 4 mg IVPUSH ONETIME ONE Stop: 09/30/18 03:49 Last Admin: 09/30/18 04:00 Dose: 4 mg
== END 2018-10-02 10:55 | disposition home or self-care (01) ==
LOC: MW.ED 03:25 → MW.MS 06:00
PROVIDERS: ADMIT Internal Medicine; ATTEND Internal Medicine
DX: K85.20 Alcohol induced acute pancreatitis without necrosis or infection (principal); K86.0 Alcohol-induced chronic pancreatitis; K86.2 Cyst of pancreas; I81 Portal vein thrombosis; F10.10 Alcohol abuse, uncomplicated
CPT/HCPCS: 36415; 74177; 80053; 81001; 81025; 82150; 83690; 85025; 85610; 86677; 87086; 96361; 96365; 96375; 96376; 99285; C9113; G0378; G0480; J0696; J1170; J2405; J3411; J7040; J7050; Q9967; 99284

== ENCOUNTER 2018-12-21 20:19 | Emergency (ER) | payer BC ==
[2018-12-21] MEDS ORDERED: Sodium Chloride 0.9% 2.5 ML Syringe FLUSH PRN (20:23)
[2018-12-21] MEDS ORDERED: Sodium Chloride 0.9% 10 ML Syringe FLUSH PRN (20:23)
[2018-12-21] MEDS ORDERED: Ketorolac 30 MG/ML SDV IVPUSH ONE (20:45)
[2018-12-21] MEDS ORDERED: Sodium Chloride 0.9% 1,000 ML IV ONE (20:49)
--- NOTE | 2018-12-21 20:49 | EDM.PDOC ---
ED HPI GENERAL MEDICAL PROBLEM - General Chief Complaint: Abdominal Pain Stated Complaint: PT HAS STOMACH PAINS Time Seen by Provider: 12/21/18 20:46 Source of Information: Reports: Patient History Limitations: Reports: No Limitations - History of Present Illness INITIAL COMMENTS - FREE TEXT/NARRATIVE: HISTORY AND PHYSICAL: History of present illness: Patient is a 33-year-old female here with complaint of abdominal pain. She reports a history of pancreatitis, last episode being 6 months ago requiring admission. She states that she drank a lot yesterday at a golf tournament which she reports usually triggers her pancreatitis. She denies fevers, chills, nausea , vomiting, diarrhea, urinary symptoms. Denies abdominal surgeries Review of systems: As per history of present illness and below otherwise all systems reviewed and negative. Past medical history: As per history of present illness and as reviewed below otherwise noncontributory. Surgical history: As per history of present illness and as reviewed below otherwise noncontributory. Social history: No reported history of drug or alcohol abuse. Family history: As per history of present illness and as reviewed below otherwise noncontributory. Physical exam: General: Patient sitting comfortably in no acute distress and nontoxic appearing HEENT: Atraumatic, normocephalic, pupils reactive, negative for conjunctival pallor or scleral icterus, mucous membranes moist, throat clear, neck supple, nontender, trachea midline. No meningeal signs. Lungs: Clear to auscultation, breath sounds equal bilaterally, chest nontender. Heart: S1S2, regular, negative for clicks, rubs, or overt murmur. Abdomen: Epigastric and LUQ pain to palpation. Negative mcburneys, psoas, obturator sign. Soft, nondistended. Negative for masses or hepatosplenomegaly. Negative for costovertebral tenderness. No rigidity, rebound, guarding. Pelvis: Stable nontender. Genitourinary: Deferred. Rectal: Deferred. Extremities: Atraumatic, negative for cords or calf pain. Neurovascular unremarkable. Neuro: Awake, alert, oriented. Cranial nerves II through XII unremarkable. Cerebellum unremarkable. Motor and sensory unremarkable throughout. Exam nonfocal. Notes: Diagnostics: CBC, CMP, lipase, CT abdomen/pelvis w/ contrast Therapeutics: 1L NS IV 30mg Toradol IV 2mg Morphine IV Prescriptions: None Impression: Abdominal pain Plan: 1. Follow up with primary care provider 2. Return to ED as needed as discussed Definitive disposition and diagnosis as appropriate pending reevaluation and review of above. Abdominal Pain Score (Numeric/FACES): 6 - Related Data Allergies Allergy/AdvReac Type Severity Reaction Status Date / Time No Known Allergies Allergy Verified 12/21/18 20:20 Home Meds: Home Meds Hydrocodone/Acetaminophen [Hydrocodon-Acetaminophen 5-325] 1 each PO ASDIRECTED 12/21/18 [History] Past Medical History - Past Health History Medical/Surgical History: Denies Medical/Surgical History HEENT History: Reports: None Cardiovascular History: Reports: Blood Clots/VTE/DVT Other Cardiovascular History: blood clot on the liver Respiratory History: Reports: None Gastrointestinal History: Reports: Pancreatitis Genitourinary History: Reports: None [employer] History: Reports: Other (See Below) Musculoskeletal History: Reports: None Neurological History: Reports: None Psychiatric History: Reports: Addiction Other Psychiatric History: ETOH Endocrine/Metabolic History: Reports: None Hematologic History: Reports: None Immunologic History: Reports: None Oncologic (Cancer) History: Reports: None Dermatologic History: Reports: None - Infectious Disease History Infectious Disease History: Reports: None - Past Surgical History Head Surgeries/Procedures: Reports: None HEENT Surgical History: Reports: None Cardiovascular Surgical History: Reports: None Respiratory Surgical History: Reports: None GI Surgical History: Reports: EGD Female Surgical History: Reports: None Endocrine Surgical History: Reports: None Neurological Surgical History: Reports: None Musculoskeletal Surgical History: Reports: None Oncologic Surgical History: Reports: None Dermatological Surgical History: Reports: None Social & Family History - Family History Family Medical History: Noncontributory Cardiac: Reports: CT - Tobacco Use Smoking Status *Q: Never Smoker Second Hand Smoke Exposure: No - Caffeine Use Caffeine Use: Reports: None Other Caffeine Use: 2 Diet Cokes a day - Recreational Drug Use Recreational Drug Use: No - Living Situation & Occupation Living situation: Reports: Single Occupation: Unemployed ED ROS GENERAL - Review of Systems Review Of Systems: ROS reveals no pertinent complaints other than HPI. ED EXAM, GI/ABD - Physical Exam Exam: See Below (see dictation) Course - Vital Signs Last Recorded V/S: Last Vital Signs Temp 97 F 12/21/18 20:20 Pulse 104 H 12/21/18 20:20 Resp 16 12/21/18 20:20 BP 147/108 H 12/21/18 20:20 Pulse Ox 97 12/21/18 20:20 - Orders/Labs/Meds Orders: Active Orders 24 hr Category Date Time Status CULTURE URINE [RM] Stat Lab 12/21/18 20:30 Received Sodium Chloride 0.9% [Saline Flush] Med 12/21/18 20:23 Active 10 ml FLUSH ASDIRECTED PRN Sodium Chloride 0.9% [Saline Flush] Med 12/21/18 20:23 Active 2.5 ml FLUSH ASDIRECTED PRN Saline Lock Insert [OM.PC] Stat Oth 12/21/18 20:23 Ordered Medication Orders Sodium Chloride (Saline Flush) 10 ml FLUSH ASDIRECTED PRN PRN Reason: Keep Vein Open Last Admin: 12/21/18 20:41 Dose: 10 ml Sodium Chloride (Saline Flush) 2.5 ml FLUSH ASDIRECTED PRN PRN Reason: Keep Vein Open Last Admin: 12/21/18 20:41 Dose: 2.5 ml Labs: Laboratory Tests 12/21/18 12/21/18 12/21/18 Range/Units 20:30 20:30 20:31 WBC 13.65 H (4.0-11.0) K/uL RBC 4.36 (4.30-5.90) M/uL Hgb 13.3 (12.0-16.0) g/dL Hct 39.8 (36.0-46.0) % MCV 91.3 (80.0-98.0) fL MCH 30.5 (27.0-32.0) pg MCHC 33.4 (31.0-37.0) g/dL RDW Std Deviation 50.5 (28.0-62.0) fl RDW Coeff of [place] 15 (11.0-15.0) % Plt Count 285 (150-400) K/uL MPV 8.50 (7.40-12.00) fL Neut % (Auto) 53.7 (48.0-80.0) % Lymph % (Auto) 34.5 (16.0-40.0) % [place] % (Auto) 11.1 (0.0-15.0) % Eos % (Auto) 0.5 (0.0-7.0) % Baso % (Auto) 0.2 (0.0-1.5) % Neut # (Auto) 7.3 H (1.4-5.7) K/uL Lymph # (Auto) 4.7 H (0.6-2.4) K/uL [place] # (Auto) 1.5 H (0.0-0.8) K/uL Eos # (Auto) 0.1 (0.0-0.7) K/uL Baso # (Auto) 0.0 (0.0-0.1) K/uL Nucleated RBC % 0.0 /100WBC Nucleated RBCs # 0 K/uL Sodium (136-145) mmol/L Potassium (3.5-5.1) mmol/L Chloride (98-107) mmol/L Carbon Dioxide (21.0-32.0) mmol/L BUN (7.0-18.0) mg/dL Creatinine (0.6-1.0) mg/dL Est Cr Clr Drug Dosing mL/min Estimated GFR (MDRD) ml/min Glucose (74-106) mg/dL Calcium (8.5-10.1) mg/dL Total Bilirubin (0.2-1.0) mg/dL AST (15-37) IU/L ALT (14-63) IU/L Alkaline Phosphatase (46-116) U/L Total Protein (6.4-8.2) g/dL Albumin (3.4-5.0) g/dL Globulin (2.6-4.0) g/dL Albumin/Globulin Ratio (0.9-1.6) Lipase (73-393) U/L Urine Color YELLOW Urine Appearance CLEAR Urine pH 7.0 (5.0-8.0) Ur Specific [place] 1.010 (1.001-1.035) Urine Protein NEGATIVE (NEGATIVE) mg/dL Urine Glucose (UA) NEGATIVE (NEGATIVE) mg/dL Urine Ketones NEGATIVE (NEGATIVE) mg/dL Urine Occult Blood SMALL H (NEGATIVE) Urine Nitrite NEGATIVE (NEGATIVE) Urine Bilirubin NEGATIVE (NEGATIVE) Urine Urobilinogen 0.2 (<2.0) EU/dL Ur Leukocyte Esterase TRACE H (NEGATIVE) Urine RBC 0-2 (0-2/HPF) Urine WBC 4-6 (0-5/HPF) Ur Epithelial Cells FEW (NONE-FEW) Urine Bacteria 1+ H (NEGATIVE) Urine Mucus FEW (NONE-MOD) Urine HCG, Qual NEGATIVE (NEGATIVE) 12/21/18 Range/Units 20:31 WBC (4.0-11.0) K/uL RBC (4.30-5.90) M/uL Hgb (12.0-16.0) g/dL Hct (36.0-46.0) % MCV (80.0-98.0) fL MCH (27.0-32.0) pg MCHC (31.0-37.0) g/dL RDW Std Deviation (28.0-62.0) fl RDW Coeff of [place] (11.0-15.0) % Plt Count (150-400) K/uL MPV (7.40-12.00) fL Neut % (Auto) (48.0-80.0) % Lymph % (Auto) (16.0-40.0) % [place] % (Auto) (0.0-15.0) % Eos % (Auto) (0.0-7.0) % Baso % (Auto) (0.0-1.5) % Neut # (Auto) (1.4-5.7) K/uL Lymph # (Auto) (0.6-2.4) K/uL [place] # (Auto) (0.0-0.8) K/uL Eos # (Auto) (0.0-0.7) K/uL Baso # (Auto) (0.0-0.1) K/uL Nucleated RBC % /100WBC Nucleated RBCs # K/uL Sodium 141 (136-145) mmol/L Potassium 3.6 (3.5-5.1) mmol/L Chloride 106 (98-107) mmol/L Carbon Dioxide 24.3 (21.0-32.0) mmol/L BUN 14 (7.0-18.0) mg/dL Creatinine 0.5 L (0.6-1.0) mg/dL Est Cr Clr Drug Dosing 139.49 mL/min Estimated GFR (MDRD) > 60.0 ml/min Glucose 120 H (74-106) mg/dL Calcium 8.1 L (8.5-10.1) mg/dL Total Bilirubin 0.2 (0.2-1.0) mg/dL AST 36 (15-37) IU/L ALT 22 (14-63) IU/L Alkaline Phosphatase 68 (46-116) U/L Total Protein 7.5 (6.4-8.2) g/dL Albumin 3.5 (3.4-5.0) g/dL Globulin 4.0 (2.6-4.0) g/dL Albumin/Globulin Ratio 0.9 (0.9-1.6) Lipase 73 (73-393) U/L Urine Color Urine Appearance Urine pH (5.0-8.0) Ur Specific [place] (1.001-1.035) Urine Protein (NEGATIVE) mg/dL Urine Glucose (UA) (NEGATIVE) mg/dL Urine Ketones (NEGATIVE) mg/dL Urine Occult Blood (NEGATIVE) Urine Nitrite (NEGATIVE) Urine Bilirubin (NEGATIVE) Urine Urobilinogen (<2.0) EU/dL Ur Leukocyte Esterase (NEGATIVE) Urine RBC (0-2/HPF) Urine WBC (0-5/HPF) Ur Epithelial Cells (NONE-FEW) Urine Bacteria (NEGATIVE) Urine Mucus (NONE-MOD) Urine HCG, Qual (NEGATIVE) Meds: Medications Generic Name Dose Route Start Last Admin Trade Name Jackie PRN Reason Stop Dose Admin Sodium Chloride 10 ml 12/21/18 20:23 12/21/18 20:41 Saline Flush FLUSH 10 ml ASDIRECTED PRN Administration Keep Vein Open Sodium Chloride 2.5 ml 12/21/18 20:23 12/21/18 20:41 Saline Flush FLUSH 2.5 ml ASDIRECTED PRN Administration Keep Vein Open Discontinued Medications Generic Name Dose Route Start Last Admin Trade Name Jackie PRN Reason Stop Dose Admin Sodium Chloride 1,000 mls @ 999 mls/hr 12/21/18 20:49 12/21/18 20:51 Normal Saline IV 12/21/18 21:49 999 mls/hr STAT ONE Administration Iopamidol 100 ml 12/21/18 21:27 12/21/18 21:27 Isovue Multipack-370 (76%) IVPUSH 12/21/18 21:28 100 ml ONETIME STA Administration Ketorolac Tromethamine 30 mg 12/21/18 20:45 12/21/18 20:49 Toradol IVPUSH 12/21/18 20:46 30 mg ONETIME ONE Administration Morphine Sulfate 2 mg 12/21/18 21:40 12/21/18 21:53 Morphine IVPUSH 12/21/18 21:41 2 mg ONETIME ONE Administration Departure - Departure Time of Disposition: 22:18 Disposition: Home, Self-Care 01 Condition: Good Clinical Impression: Abdominal pain Qualifiers: Abdominal location: epigastric Qualified Code(s): R10.13 - Epigastric pain - Discharge Information Referrals: PCP,None [Primary Care Provider] - Forms: ED Department Discharge Additional Instructions: The following information is given to patients seen in the emergency department who are being discharged to home. This information is to outline your options for follow-up care. We provide all patients seen in our emergency department with a follow-up referral. The need for follow-up, as well as the timing and circumstances, are variable depending upon the specifics of your emergency department visit. If you don't have a primary care physician on staff, we will provide you with a referral. We always advise you to contact your personal physician following an emergency department visit to inform them of the circumstance of the visit and for follow-up with them and/or the need for any referrals to a consulting specialist. The emergency department will also refer you to a specialist when appropriate. This referral assures that you have the opportunity for follow-up care with a specialist. All of these measure are taken in an effort to provide you with optimal care, which includes your follow-up. Under all circumstances we always encourage you to contact your private physician who remains a resource for coordinating your care. When calling for follow-up care, please make the office aware that this follow-up is from your recent emergency room visit. If for any reason you are refused follow-up, please contact the [facility] Emergency Department at and asked to speak to the emergency department charge nurse. [facility] Primary Care [id number], [place] [address] [facility] [address] [place] [id number] 1. Follow up with primary care provider 2. Return to ED as needed as discussed - My Orders Last 24 Hours: My Active Orders 12/21/18 20:23 Sodium Chloride 0.9% [Saline Flush] 10 ml FLUSH ASDIRECTED PRN Sodium Chloride 0.9% [Saline Flush] 2.5 ml FLUSH ASDIRECTED PRN Saline Lock Insert [OM.PC] Stat 12/21/18 20:30 CULTURE URINE [RM] Stat - Assessment/Plan Last 24 Hours: My Active Orders 12/21/18 20:23 Sodium Chloride 0.9% [Saline Flush] 10 ml FLUSH ASDIRECTED PRN Sodium Chloride 0.9% [Saline Flush] 2.5 ml FLUSH ASDIRECTED PRN Saline Lock Insert [OM.PC] Stat 12/21/18 20:30 CULTURE URINE [RM] Stat
[2018-12-21 20:59] LABS: CHLORIDE,CL 106 mmol/L (98-107); SODIUM,NA 141 mmol/L (136-145)
[2018-12-21] MEDS ORDERED: Iopamidol 755 MG/ML 500 ML Multipack Bottle IVPUSH STA (21:27)
[2018-12-21] MEDS ORDERED: Morphine 2 MG/ML Syringe IVPUSH ONE (21:40)
--- NOTE | 2018-12-21 21:57 | CT ---
INDICATION: Pancreatic mass versus pancreatitis. Pain produced by drinking alcohol last night. COMPARISON: 09/30/2018 TECHNIQUE: CT examination of the abdomen and pelvis was performed with the uneventful intravenous administration of 100 cc of Isovue 370 while 3 mm thick axial sections were obtained from the lung bases through the pubic symphysis. Oral contrast was not administered. Please note that all CT scans at this facility use dose modulation, iterative reconstruction, and/or weight-based dosing when appropriate to reduce radiation dose to as low as reasonably achievable. FINDINGS: In the abdomen, the liver, spleen, and adrenals are normal in appearance. There is prominently decreased inflammation and soft tissue fullness extending into the mesentery on the left, with distinctly improved soft tissue stranding and fullness of the central portion of the mesentery. The findings are consistent with improvement in pancreatitis. The superior mesenteric vein is absent in the superior portion of the mesentery, with increase in size of numerous small collaterals throughout this region. The pancreas itself is normal in appearance, with resolution of the previously seen hypodensity and inflammatory stranding around the pancreatic head. The main portal vein and splenic vein are patent, although there is mild stenosis of the splenic vein at the midline, new compared to the previous study. The kidneys are normal in appearance. The gallbladder is normal in appearance. The abdominal aorta is normal in caliber with no sign of dilatation. There is no sign of retroperitoneal mass or adenopathy. The stomach, loops of small bowel, and colon in the abdomen are normal in appearance. In the pelvis, the appendix is nonvisualized, but there is no sign of an inflammatory process in the area of the appendix. The loops of small bowel and colon in the pelvis are normal in appearance. The uterus and adnexal regions are normal in appearance. The previously seen small amount of free fluid in the pelvis has resolved. The urinary bladder is normal in appearance. There is no sign of pelvic or inguinal mass or adenopathy. The lung bases are clear. The osseous structures are normal in appearance for the patient`s age. IMPRESSION: CT of the abdomen shows decreased induration of the fat in the root of the mesentery, with prominent improvement in induration of the left side of the mesentery seen on the previous study. 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 Resolution of previously seen pancreatitis involving the pancreatic head. Normal CT of the pelvis with contrast fall with resolution of previously seen small amount of free fluid. Please note that all CT scans at this facility use dose modulation, iterative reconstruction, and/or weight-based dosing when appropriate to reduce radiation dose to as low as reasonably achievable. Dictated by Bashir Peña MD @ Dec 21 2018 9:38PM Signed by Dr. Bashir Peña @ Dec 21 2018 9:55PM
== END 2018-12-21 22:41 | disposition home or self-care (01) ==
LOC: MW.ED 20:19
DX: R10.13 Epigastric pain (principal); N39.0 Urinary tract infection, site not specified
CPT/HCPCS: 36415; 74177; 80053; 81001; 81025; 83690; 85025; 87086; 96361; 96374; 96375; 99284; J1885; J2270; J7040; Q9967

== ENCOUNTER 2019-05-16 12:01 | Observation (INO) | payer SELFPAY ==
[2019-05-16] MEDS ORDERED: Sodium Chloride 0.9% 1,000 ML IV ONE ×2 (12:14→16:46)
[2019-05-16] MEDS ORDERED: Ketorolac 30 MG/ML SDV IVPUSH ONE (12:30)
[2019-05-16] MEDS ORDERED: Ondansetron 4 MG/2 ML SDV IVPUSH ONE (12:30)
[2019-05-16 13:21] LABS: BLOOD UREA NITROGEN,BUN 18 mg/dL (7.0-18.0); CARBON DIOXIDE,CO2 20.9 mmol/L (21.0-32.0); CHLORIDE,CL 102 mmol/L (98-107); GLUCOSE RANDOM 111 mg/dL (74-106); LIPASE 540 U/L (73-393); SODIUM,NA 137 mmol/L (136-145)
[2019-05-16] MEDS ORDERED: Iopamidol 755 Mg/ML 100 ML Bottle IVPUSH STA (13:48)
[2019-05-16] MEDS ORDERED: Acetaminophen 500 MG Tab PO ONE (14:13)
--- NOTE | 2019-05-16 14:14 | CT ---
EXAM DATE: 05/16/19 PATIENT'S AGE: 34 CT abdomen and pelvis Technique: Multiple axial sections were obtained from above the dome of the diaphragm inferiorly through the pubic symphysis. Intravenous contrast was utilized. No oral contrast was given. Comparison: Previous CT abdomen and pelvis exam of 12/21/18. Findings: Visualized lung bases show nothing acute. Liver shows mild fatty infiltration. Low density finding is noted within the anterior right lobe next to the ligamentum teres fissure. This is noted on prior exam but appears larger in size on current study which may relate to differences in contrast enhancement. This may possibly represent a hemangioma. This finding measures approximately 5.0 cm in greatest dimension on current study. Gallbladder shows no calcified gallstones. Spleen appears within normal limits. Adrenal glands show no nodule. Low density is identified within the pancreatic head as well as several calcifications. These findings are slightly more prominent than on prior exam and difficult to exclude redevelopment of acute pancreatitis. Mesenteric collateral vessels are seen. These are stable from previous exam. Less mesenteric induration is seen from prior exam. Aorta shows no aneurysm. Kidneys show symmetric contrast enhancement. No retroperitoneal adenopathy or mesenteric abnormalities are appreciated. Appendix not visualized with certainty. No pelvic mass or adenopathy is seen. No free fluid is seen. No additional inflammatory change is seen. Bone window settings were reviewed which showed no acute osseous finding. Impression: 1. Fatty infiltration within the liver. 2. Low density lesion anteriorly next to the ligamentum teres fissure most likely representing a hemangioma but since this is increased in size from prior exam, MRI could be considered as a hemangioma protocol to hopefully confirm. 3. Low density within the pancreatic head containing several calcifications. Findings are compatible with chronic pancreatitis. Findings are minimally increased from previous exam and could represent mild superimposed acute pancreatitis if patient has correlating symptoms. 4. Stable mesenteric collateral vessels. 5. No additional abnormality is seen on CT study of the abdomen and pelvis. Diagnostic code #3 Report Signed by Proxy. RONDA
--- NOTE | 2019-05-16 14:25 | EDM.PDOC ---
ED HPI GENERAL MEDICAL PROBLEM - General Chief Complaint: Abdominal Pain Stated Complaint: SEVERE STOMACH PAIN Time Seen by Provider: 05/16/19 12:08 Source of Information: Reports: Patient History Limitations: Reports: No Limitations - History of Present Illness INITIAL COMMENTS - FREE TEXT/NARRATIVE: HISTORY AND PHYSICAL: History of present illness: Patient is a 34-year-old female who presents to the ED today with concern of upper abdominal pain since this morning. Patient that she has a history of pancreatitis in the past from alcohol use and feels that her symptoms today are similar to her past pancreatitis episodes. Patient states she has had some nausea and vomiting this morning. Patient states she does drink a few drinks daily of alcohol. Patient denies any other substance use. Patient denies fever, chills, chest pain, shortness of breath, or cough. Denies headache, neck stiff ness, change in vision, syncope, or near syncope. Denies diarrhea, constipation, or dysuria. Has not noted any blood in urine or stool. Patient has been eating and drinking appropriately. Review of systems: As per history of present illness and below otherwise all systems reviewed and negative. Past medical history: As per history of present illness and as reviewed below otherwise noncontributory. Surgical history: As per history of present illness and as reviewed below otherwise noncontributory. Social history: See social history for further information Family history: As per history of present illness and as reviewed below otherwise noncontributory. Physical exam: General: Patient is alert, oriented, and in no acute distress. Patient laying comfortably on exam table. HEENT: Atraumatic, normocephalic, pupils equal and reactive bilaterally, negative for conjunctival pallor or scleral icterus, mucous membranes moist, TMs normal bilaterally, throat clear, neck supple, nontender, trachea midline. No drooling or trismus noted. No meningeal signs. No hot potato voice noted. Lungs: Clear to auscultation, breath sounds equal bilaterally, chest nontender. Heart: S1S2, regular rate and rhythm without overt murmur Abdomen: Soft, nondistended, mild-moderate discomfort of the epigastric area. Negative for masses or hepatosplenomegaly. Negative for costovertebral tenderness. Pelvis: Stable nontender. Genitourinary: Deferred. Rectal: Deferred. Skin: Intact, warm, dry. No lesions or rashes noted. Extremities: Atraumatic, negative for cords or calf pain. Neurovascular unremarkable. Neuro: Awake, alert, oriented. Cranial nerves II through XII unremarkable. Cerebellum unremarkable. Motor and sensory unremarkable throughout. Exam nonfocal. Notes: Dr. Isaacs was consulted on patient and will admit to observation. Voices understanding and is agreeable to plan of care. Denies any further questions or concerns at this time. Diagnostics: CBC, CMP, UA, lipase, amylase, abdominal pelvic CT Therapeutics: Zofran, saline, Toradol, Tylenol, Morphine Impression: Acute on chronic pancreatitis Plan: 1. Admit to observation and Dr. Isaacs Definitive disposition and diagnosis as appropriate pending reevaluation and review of above. LUQ Pain Score (Numeric/FACES): 8 - Related Data Allergies Allergy/AdvReac Type Severity Reaction Status Date / Time No Known Allergies Allergy Verified 05/16/19 12:08 Home Meds: Home Meds oxyCODONE 5 mg PO ASDIRECTED PRN 05/16/19 [History] Past Medical History - Past Health History Medical/Surgical History: Denies Medical/Surgical History HEENT History: Reports: None Cardiovascular History: Reports: Blood Clots/VTE/DVT Other Cardiovascular History: blood clot on the liver Respiratory History: Reports: None Gastrointestinal History: Reports: Pancreatitis Genitourinary History: Reports: None PUBLICITY PERSON History: Reports: Other (See Below) Musculoskeletal History: Reports: None Neurological History: Reports: None Psychiatric History: Reports: Addiction Other Psychiatric History: ETOH Endocrine/Metabolic History: Reports: None Hematologic History: Reports: None Immunologic History: Reports: None Oncologic (Cancer) History: Reports: None Dermatologic History: Reports: None - Infectious Disease History Infectious Disease History: Reports: None - Past Surgical History Head Surgeries/Procedures: Reports: None HEENT Surgical History: Reports: None Cardiovascular Surgical History: Reports: None Respiratory Surgical History: Reports: None GI Surgical History: Reports: EGD Female Surgical History: Reports: None Endocrine Surgical History: Reports: None Neurological Surgical History: Reports: None Musculoskeletal Surgical History: Reports: None Oncologic Surgical History: Reports: None Dermatological Surgical History: Reports: None Social & Family History - Family History Family Medical History: Noncontributory Cardiac: Reports: [place] - Tobacco Use Smoking Status *Q: Never Smoker Second Hand Smoke Exposure: No - Caffeine Use Caffeine Use: Reports: Soda Other Caffeine Use: 2 Diet Cokes a day - Recreational Drug Use Recreational Drug Use: No - Living Situation & Occupation Living situation: Reports: Single Occupation: Unemployed ED ROS GENERAL - Review of Systems Review Of Systems: Comprehensive ROS is negative, except as noted in HPI. ED EXAM, GENERAL - Physical Exam Exam: See Below (See dictation) Course - Vital Signs Last Recorded V/S: Last Vital Signs Temp 96.7 F 05/16/19 12:09 Pulse 119 H 05/16/19 12:09 Resp 18 05/16/19 12:09 BP 166/117 H 05/16/19 12:09 Pulse Ox 98 05/16/19 12:09 - Orders/Labs/Meds Orders: Active Orders 24 hr Category Date Time Status Admission Status [Patient Status] [ADT] Stat ADT 05/16/19 14:58 Ordered CULTURE URINE [RM] Stat Lab 05/16/19 14:44 Ordered Labs: Laboratory Tests 05/16/19 05/16/19 05/16/19 Range/Units 12:01 12:01 12:38 WBC 6.12 (4.0-11.0) K/uL RBC 4.72 (4.30-5.90) M/uL Hgb 15.0 (12.0-16.0) g/dL Hct 43.0 (36.0-46.0) % MCV 91.1 (80.0-98.0) fL MCH 31.8 (27.0-32.0) pg MCHC 34.9 (31.0-37.0) g/dL RDW Std Deviation 44.2 (28.0-62.0) fl RDW Coeff of [place] 13 (11.0-15.0) % Plt Count 239 (150-400) K/uL MPV 8.60 (7.40-12.00) fL Neut % (Auto) 56.1 (48.0-80.0) % Lymph % (Auto) 32.4 (16.0-40.0) % [place] % (Auto) 10.5 (0.0-15.0) % Eos % (Auto) 0.3 (0.0-7.0) % Baso % (Auto) 0.7 (0.0-1.5) % Neut # (Auto) 3.4 (1.4-5.7) K/uL Lymph # (Auto) 2.0 (0.6-2.4) K/uL [place] # (Auto) 0.6 (0.0-0.8) K/uL Eos # (Auto) 0.0 (0.0-0.7) K/uL Baso # (Auto) 0.0 (0.0-0.1) K/uL Nucleated RBC % 0.0 /100WBC Nucleated RBCs # 0 K/uL Sodium (136-145) mmol/L Potassium (3.5-5.1) mmol/L Chloride (98-107) mmol/L Carbon Dioxide (21.0-32.0) mmol/L BUN (7.0-18.0) mg/dL Creatinine (0.6-1.0) mg/dL Est Cr Clr Drug Dosing mL/min Estimated GFR (MDRD) ml/min Glucose (74-106) mg/dL Calcium (8.5-10.1) mg/dL Total Bilirubin (0.2-1.0) mg/dL AST (15-37) IU/L ALT (14-63) IU/L Alkaline Phosphatase (46-116) U/L Total Protein (6.4-8.2) g/dL Albumin (3.4-5.0) g/dL Globulin (2.6-4.0) g/dL Albumin/Globulin Ratio (0.9-1.6) Amylase (25-115) U/L Lipase (73-393) U/L Urine Color YELLOW Urine Appearance HAZY Urine pH 6.0 (5.0-8.0) Ur Specific [place] >= 1.030 (1.001-1.035) Urine Protein 30 H (NEGATIVE) mg/dL Urine Glucose (UA) NEGATIVE (NEGATIVE) mg/dL Urine Ketones NEGATIVE (NEGATIVE) mg/dL Urine Occult Blood TRACE-INTACT H (NEGATIVE) Urine Nitrite NEGATIVE (NEGATIVE) Urine Bilirubin NEGATIVE (NEGATIVE) Urine Urobilinogen 0.2 (<2.0) EU/dL Ur Leukocyte Esterase NEGATIVE (NEGATIVE) Urine RBC 0-3 (0-2/HPF) Urine WBC 2-4 (0-5/HPF) Ur Epithelial Cells MODERATE (NONE-FEW) Urine Bacteria 1+ H (NEGATIVE) Urine Mucus LIGHT (NONE-MOD) Urine HCG, Qual NEGATIVE (NEGATIVE) 05/16/19 Range/Units 12:38 WBC (4.0-11.0) K/uL RBC (4.30-5.90) M/uL Hgb (12.0-16.0) g/dL Hct (36.0-46.0) % MCV (80.0-98.0) fL MCH (27.0-32.0) pg MCHC (31.0-37.0) g/dL RDW Std Deviation (28.0-62.0) fl RDW Coeff of [place] (11.0-15.0) % Plt Count (150-400) K/uL MPV (7.40-12.00) fL Neut % (Auto) (48.0-80.0) % Lymph % (Auto) (16.0-40.0) % [place] % (Auto) (0.0-15.0) % Eos % (Auto) (0.0-7.0) % Baso % (Auto) (0.0-1.5) % Neut # (Auto) (1.4-5.7) K/uL Lymph # (Auto) (0.6-2.4) K/uL [place] # (Auto) (0.0-0.8) K/uL Eos # (Auto) (0.0-0.7) K/uL Baso # (Auto) (0.0-0.1) K/uL Nucleated RBC % /100WBC Nucleated RBCs # K/uL Sodium 137 (136-145) mmol/L Potassium 4.0 (3.5-5.1) mmol/L Chloride 102 (98-107) mmol/L Carbon Dioxide 20.9 L (21.0-32.0) mmol/L BUN 18 (7.0-18.0) mg/dL Creatinine 0.7 (0.6-1.0) mg/dL Est Cr Clr Drug Dosing 98.71 mL/min Estimated GFR (MDRD) > 60.0 ml/min Glucose 111 H (74-106) mg/dL Calcium 8.7 (8.5-10.1) mg/dL Total Bilirubin 0.3 (0.2-1.0) mg/dL AST 50 H (15-37) IU/L ALT 37 (14-63) IU/L Alkaline Phosphatase 73 (46-116) U/L Total Protein 8.1 (6.4-8.2) g/dL Albumin 4.0 (3.4-5.0) g/dL Globulin 4.1 H (2.6-4.0) g/dL Albumin/Globulin Ratio 1.0 (0.9-1.6) Amylase 58 (25-115) U/L Lipase 540 H (73-393) U/L Urine Color Urine Appearance Urine pH (5.0-8.0) Ur Specific [place] (1.001-1.035) Urine Protein (NEGATIVE) mg/dL Urine Glucose (UA) (NEGATIVE) mg/dL Urine Ketones (NEGATIVE) mg/dL Urine Occult Blood (NEGATIVE) Urine Nitrite (NEGATIVE) Urine Bilirubin (NEGATIVE) Urine Urobilinogen (<2.0) EU/dL Ur Leukocyte Esterase (NEGATIVE) Urine RBC (0-2/HPF) Urine WBC (0-5/HPF) Ur Epithelial Cells (NONE-FEW) Urine Bacteria (NEGATIVE) Urine Mucus (NONE-MOD) Urine HCG, Qual (NEGATIVE) Meds: Medications Discontinued Medications Generic Name Dose Route Start Last Admin Trade Name Freq PRN Reason Stop Dose Admin Acetaminophen 1,000 mg 05/16/19 14:13 05/16/19 14:18 Tylenol Extra Strength PO 05/16/19 14:14 1,000 mg ONETIME ONE Administration Sodium Chloride 1,000 mls @ 999 mls/hr 05/16/19 12:14 05/16/19 12:51 Normal Saline IV 05/16/19 13:14 999 mls/hr STAT ONE Administration Iopamidol 100 ml 05/16/19 13:48 05/16/19 13:48 Isovue-370 (76%) IVPUSH 05/16/19 13:49 100 ml ONETIME STA Administration Ketorolac Tromethamine 30 mg 05/16/19 12:30 05/16/19 12:51 Toradol IVPUSH 05/16/19 12:31 30 mg ONETIME ONE Administration Morphine Sulfate 2 mg 05/16/19 14:58 Morphine IVPUSH 05/16/19 14:59 ONETIME ONE Ondansetron HCl 4 mg 05/16/19 12:30 05/16/19 12:51 Zofran IVPUSH 05/16/19 12:31 4 mg ONETIME ONE Administration Departure - Departure Time of Disposition: 15:00 Disposition: Refer to Observation Clinical Impression: Pancreatitis Qualifiers: Chronicity: acute Pancreatitis type: unspecified pancreatitis type Acute pancreatitis complication: unspecified Qualified Code(s): K85.90 - Acute pancreatitis without necrosis or infection, unspecified - Discharge Information Referrals: Jarrett Harper MD [Primary Care Provider] - Forms: ED Department Discharge - My Orders Last 24 Hours: My Active Orders 05/16/19 14:44 CULTURE URINE [RM] Stat 05/16/19 14:58 Admission Status [Patient Status] [ADT] Stat - Assessment/Plan Last 24 Hours: My Active Orders 05/16/19 14:44 CULTURE URINE [RM] Stat 05/16/19 14:58 Admission Status [Patient Status] [ADT] Stat
[2019-05-16] MEDS ORDERED: Morphine 2 MG/ML Syringe IVPUSH ONE (14:58)
[2019-05-16] MEDS ORDERED: Promethazine 25 MG/ML SDV IM PRN (16:47)
[2019-05-16] MEDS ORDERED: Ondansetron 4 MG/2 ML SDV IVPUSH PRN (16:47)
--- NOTE | 2019-05-16 17:31 | PCM.HP.2 ---
H&P History of Present Illness - General Date of Service: 05/16/19 Admit Problem/Dx: Admission Diagnosis/Problem Admission Diagnosis/Problem Pancreatitis - History of Present Illness Initial Comments - Free Text/Narative: 34 yo female with pmh of chronic alcoholic pancreatitis who presents with several day history of abdominal pain, nausea and vomiting. Patient denies any fevers, chills, diarrhea or blood in stool. Since her last admission she was sober for two months but then went back to drinking. She reports drinking 5 glass of vodka a day. She denies any withdrawal symptoms. LUQ Pain Score (Numeric/FACES): 8 - Related Data Allergies/Adverse Reactions: Allergies Allergy/AdvReac Type Severity Reaction Status Date / Time No Known Allergies Allergy Verified 05/17/19 01:33 Home Medications: Home Meds oxyCODONE 5 mg PO ASDIRECTED PRN 05/16/19 [History] Norgestimate-Ethinyl Estradiol [[place] 28 Tablet] 1 each PO 05/17/19 [ History] Past Medical History - Past Health History Medical/Surgical History: Denies Medical/Surgical History HEENT History: Reports: None Cardiovascular History: Reports: Blood Clots/VTE/DVT Other Cardiovascular History: blood clot on the liver Respiratory History: Reports: None Gastrointestinal History: Reports: Pancreatitis Genitourinary History: Reports: None 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 Musculoskeletal History: Reports: None Neurological History: Reports: None Psychiatric History: Reports: Addiction Other Psychiatric History: ETOH Endocrine/Metabolic History: Reports: None Hematologic History: Reports: None Immunologic History: Reports: None Oncologic (Cancer) History: Reports: None Dermatologic History: Reports: None - Infectious Disease History Infectious Disease History: Reports: None - Past Surgical History Head Surgeries/Procedures: Reports: None HEENT Surgical History: Reports: None Cardiovascular Surgical History: Reports: None Respiratory Surgical History: Reports: None GI Surgical History: Reports: EGD Female Surgical History: Reports: None Endocrine Surgical History: Reports: None Neurological Surgical History: Reports: None Musculoskeletal Surgical History: Reports: None Oncologic Surgical History: Reports: None Dermatological Surgical History: Reports: None Social & Family History - Family History Family Medical History: Noncontributory Cardiac: Reports: [place] - Tobacco Use Smoking Status *Q: Never Smoker Second Hand Smoke Exposure: No - Caffeine Use Caffeine Use: Reports: Soda Other Caffeine Use: 2 Diet Cokes a day - Alcohol Use Days Per Week of Alcohol Use: 5 Number of Drinks Per Day: 3 Total Drinks Per Week: 15 Date of Last Drink: 05/15/19 Time of Last Drink: 19:00 - Recreational Drug Use Recreational Drug Use: No - Living Situation & Occupation Living situation: Reports: Single Occupation: Unemployed H&P Review of Systems - Review of Systems: Review Of Systems: Comprehensive ROS is negative, except as noted in HPI. Exam - Exam Exam: See Below - Vital Signs Vital Signs: Last Vital Signs Temp 36.3 C 05/16/19 15:46 Pulse 94 05/16/19 15:46 Resp 18 05/16/19 15:46 BP 169/114 H 05/16/19 15:46 Pulse Ox 94 L 05/16/19 15:46 Weight: 70.3 kg - Exam General: Alert, Oriented HEENT: Mucosa Moist & [place] Lungs: Clear to Auscultation, Normal Respiratory Effort Cardiovascular: Regular Rate, Regular Rhythm GI/Abdominal Exam: Soft, Non-Tender Extremities: Non-Tender, No Pedal Edema Skin: Warm, Dry, Intact - Patient Data Lab Results Last 24 hrs: Laboratory Results - last 24 hr 05/16/19 05/16/19 05/16/19 Range/Units 12:01 12:01 12:38 WBC 6.12 (4.0-11.0) K/uL RBC 4.72 (4.30-5.90) M/uL Hgb 15.0 (12.0-16.0) g/dL Hct 43.0 (36.0-46.0) % MCV 91.1 (80.0-98.0) fL MCH 31.8 (27.0-32.0) pg MCHC 34.9 (31.0-37.0) g/dL RDW Std Deviation 44.2 (28.0-62.0) fl RDW Coeff of [place] 13 (11.0-15.0) % Plt Count 239 (150-400) K/uL MPV 8.60 (7.40-12.00) fL Neut % (Auto) 56.1 (48.0-80.0) % Lymph % (Auto) 32.4 (16.0-40.0) % [place] % (Auto) 10.5 (0.0-15.0) % Eos % (Auto) 0.3 (0.0-7.0) % Baso % (Auto) 0.7 (0.0-1.5) % Neut # (Auto) 3.4 (1.4-5.7) K/uL Lymph # (Auto) 2.0 (0.6-2.4) K/uL [place] # (Auto) 0.6 (0.0-0.8) K/uL Eos # (Auto) 0.0 (0.0-0.7) K/uL Baso # (Auto) 0.0 (0.0-0.1) K/uL Nucleated RBC % 0.0 /100WBC Nucleated RBCs # 0 K/uL Sodium (136-145) mmol/L Potassium (3.5-5.1) mmol/L Chloride (98-107) mmol/L Carbon Dioxide (21.0-32.0) mmol/L BUN (7.0-18.0) mg/dL Creatinine (0.6-1.0) mg/dL Est Cr Clr Drug Dosing mL/min Estimated GFR (MDRD) ml/min Glucose (74-106) mg/dL Calcium (8.5-10.1) mg/dL Total Bilirubin (0.2-1.0) mg/dL AST (15-37) IU/L ALT (14-63) IU/L Alkaline Phosphatase (46-116) U/L Total Protein (6.4-8.2) g/dL Albumin (3.4-5.0) g/dL Globulin (2.6-4.0) g/dL Albumin/Globulin Ratio (0.9-1.6) Amylase (25-115) U/L Lipase (73-393) U/L Urine Color YELLOW Urine Appearance HAZY Urine pH 6.0 (5.0-8.0) Ur Specific [place] >= 1.030 (1.001-1.035) Urine Protein 30 H (NEGATIVE) mg/dL Urine Glucose (UA) NEGATIVE (NEGATIVE) mg/dL Urine Ketones NEGATIVE (NEGATIVE) mg/dL Urine Occult Blood TRACE-INTACT H (NEGATIVE) Urine Nitrite NEGATIVE (NEGATIVE) Urine Bilirubin NEGATIVE (NEGATIVE) Urine Urobilinogen 0.2 (<2.0) EU/dL Ur Leukocyte Esterase NEGATIVE (NEGATIVE) Urine RBC 0-3 (0-2/HPF) Urine WBC 2-4 (0-5/HPF) Ur Epithelial Cells MODERATE (NONE-FEW) Urine Bacteria 1+ H (NEGATIVE) Urine Mucus LIGHT (NONE-MOD) Urine HCG, Qual NEGATIVE (NEGATIVE) 05/16/19 Range/Units 12:38 WBC (4.0-11.0) K/uL RBC (4.30-5.90) M/uL Hgb (12.0-16.0) g/dL Hct (36.0-46.0) % MCV (80.0-98.0) fL MCH (27.0-32.0) pg MCHC (31.0-37.0) g/dL RDW Std Deviation (28.0-62.0) fl RDW Coeff of [place] (11.0-15.0) % Plt Count (150-400) K/uL MPV (7.40-12.00) fL Neut % (Auto) (48.0-80.0) % Lymph % (Auto) (16.0-40.0) % [place] % (Auto) (0.0-15.0) % Eos % (Auto) (0.0-7.0) % Baso % (Auto) (0.0-1.5) % Neut # (Auto) (1.4-5.7) K/uL Lymph # (Auto) (0.6-2.4) K/uL [place] # (Auto) (0.0-0.8) K/uL Eos # (Auto) (0.0-0.7) K/uL Baso # (Auto) (0.0-0.1) K/uL Nucleated RBC % /100WBC Nucleated RBCs # K/uL Sodium 137 (136-145) mmol/L Potassium 4.0 (3.5-5.1) mmol/L Chloride 102 (98-107) mmol/L Carbon Dioxide 20.9 L (21.0-32.0) mmol/L BUN 18 (7.0-18.0) mg/dL Creatinine 0.7 (0.6-1.0) mg/dL Est Cr Clr Drug Dosing 98.71 mL/min Estimated GFR (MDRD) > 60.0 ml/min Glucose 111 H (74-106) mg/dL Calcium 8.7 (8.5-10.1) mg/dL Total Bilirubin 0.3 (0.2-1.0) mg/dL AST 50 H (15-37) IU/L ALT 37 (14-63) IU/L Alkaline Phosphatase 73 (46-116) U/L Total Protein 8.1 (6.4-8.2) g/dL Albumin 4.0 (3.4-5.0) g/dL Globulin 4.1 H (2.6-4.0) g/dL Albumin/Globulin Ratio 1.0 (0.9-1.6) Amylase 58 (25-115) U/L Lipase 540 H (73-393) U/L Urine Color Urine Appearance Urine pH (5.0-8.0) Ur Specific [place] (1.001-1.035) Urine Protein (NEGATIVE) mg/dL Urine Glucose (UA) (NEGATIVE) mg/dL Urine Ketones (NEGATIVE) mg/dL Urine Occult Blood (NEGATIVE) Urine Nitrite (NEGATIVE) Urine Bilirubin (NEGATIVE) Urine Urobilinogen (<2.0) EU/dL Ur Leukocyte Esterase (NEGATIVE) Urine RBC (0-2/HPF) Urine WBC (0-5/HPF) Ur Epithelial Cells (NONE-FEW) Urine Bacteria (NEGATIVE) Urine Mucus (NONE-MOD) Urine HCG, Qual (NEGATIVE) Result Diagrams: 05/17/19 06:09 05/17/19 06:09 Problem List Initiated/Reviewed/Updated: Yes Orders Last 24hrs: Active Orders 24 hr Category Date Time Status Admission Status [Patient Status] [ADT] Stat ADT 05/16/19 14:58 Active Antiembolic Devices [RC] PER UNIT ROUTINE Care 05/16/19 16:57 Active Oxygen Therapy [RC] PRN Care 05/16/19 16:47 Active Up ad [place] [RC] ASDIRECTED Care 05/16/19 16:47 Active VTE/DVT Education [RC] PER UNIT ROUTINE Care 05/16/19 16:47 Active Vital Signs [RC] Q4H Care 05/16/19 16:47 Active Nothing per Oral Now Diet [DIET] Diet 05/16/19 Breakfast Active CBC WITH AUTO DIFF [HEME] AM Lab 05/17/19 05:11 Ordered COMPREHENSIVE METABOLIC PN,CMP [CHEM] AM Lab 05/17/19 05:11 Ordered CULTURE URINE [RM] Stat Lab 05/16/19 14:44 Ordered Folic Acid Med 05/16/19 17:00 Ordered 1 mg SUBCUT DAILY HYDROmorphone [Dilaudid] Med 05/16/19 16:45 Ordered 1 mg IVPUSH Q3H PRN LORazepam [Ativan] Med 05/16/19 16:58 Ordered See Protocol IVPUSH Q4H PRN Ondansetron [Zofran] Med 05/16/19 16:47 Ordered 4 mg IVPUSH Q4H PRN Pantoprazole [ProTONIX IV] 40 mg Med 05/16/19 17:00 Ordered Sodium Chloride 0.9% [Normal Saline] 10 ml IV Q24H Promethazine [Phenergan] Med 05/16/19 16:47 Ordered 25 mg IM Q6H PRN Sodium Chloride 0.9% [Normal Saline] 1,000 ml Med 05/16/19 16:46 Ordered IV .Bolus Sodium Chloride 0.9% [Normal Saline] 1,000 ml Med 05/16/19 17:00 Ordered IV ASDIRECTED Thiamine [Vitamin B-1] Med 05/16/19 17:00 Ordered 100 mg IVPUSH DAILY Sequential Compression Device [OM.PC] Per Unit Routine Oth 05/16/19 16:47 Ordered Resuscitation Status Routine Resus Stat 05/16/19 16:47 Ordered Medication Orders Folic Acid (Folic Acid) 1 mg SUBCUT DAILY CARLITOS Hydromorphone HCl (Dilaudid) 1 mg IVPUSH Q3H PRN PRN Reason: Pain Sodium Chloride (Normal Saline) 1,000 mls @ 1,000 mls/hr IV .Bolus ONE Stop: 05/16/19 17:45 Sodium Chloride (Normal Saline) 1,000 mls @ 200 mls/hr IV ASDIRECTED CARLITOS Pantoprazole Sodium 40 mg/ (Sodium Chloride) 10 mls @ 300 mls/hr IV Q24H CARLITOS Lorazepam (Ativan) 0 mg IVPUSH Q4H PRN; Protocol PRN Reason: Agitation Ondansetron HCl (Zofran) 4 mg IVPUSH Q4H PRN PRN Reason: Nausea Promethazine HCl (Phenergan) 25 mg IM Q6H PRN PRN Reason: Nausea Thiamine HCl (Vitamin B-1) 100 mg IVPUSH DAILY COUNTS INCLUDE 234 BEDS AT THE [facility] Assessment/Plan Comment:: 34 yo female admitted for acute on chronic alcoholic pancreatitis. We will treat with IV fluids, bowel rest and dilaudid, zofran prn. She was given education on the importance of alcohol cessation. Patient has not made the decision to quit drinking.
[2019-05-16] MEDS: HYDROmorphone 1 MG/ML Syringe IVPUSH PRN ×3 (17:37→23:39)
[2019-05-16] MEDS: Pantoprazole 40 MG in Sodium Chloride 0.9% 10 ML IV SCH (17:50)
[2019-05-16] MEDS: Folic Acid 50 MG/10 ML MDV SUBCUT SCH (17:51)
[2019-05-16] MEDS: Thiamine 200 MG/2 ML MDV IVPUSH SCH (17:51)
[2019-05-16] MEDS: Sodium Chloride 0.9% 1,000 ML IV SCH ×2 (19:25→23:44)
[2019-05-16] MEDS: LORazepam 2 MG/ML SDV IVPUSH PRN (20:32)
[2019-05-17] MEDS: LORazepam 2 MG/ML SDV IVPUSH PRN ×2 (01:01→09:22)
[2019-05-17] MEDS: HYDROmorphone 1 MG/ML Syringe IVPUSH PRN ×7 (02:56→21:47)
[2019-05-17] MEDS: Sodium Chloride 0.9% 1,000 ML IV SCH ×4 (02:57→21:50)
[2019-05-17 06:44] LABS: BLOOD UREA NITROGEN,BUN 6 mg/dL (7.0-18.0); CARBON DIOXIDE,CO2 25.7 mmol/L (21.0-32.0); CHLORIDE,CL 102 mmol/L (98-107); GLUCOSE RANDOM 95 mg/dL (74-106); POTASSIUM,K 3.2 mmol/L (3.5-5.1); SODIUM,NA 137 mmol/L (136-145)
[2019-05-17] MEDS: Folic Acid 50 MG/10 ML MDV SUBCUT SCH (08:37)
[2019-05-17] MEDS: Thiamine 200 MG/2 ML MDV IVPUSH SCH (08:41)
--- NOTE | 2019-05-17 13:40 | PCM.PN ---
- General Info Date of Service: 05/17/19 - Review of Systems Systems Review Comment:: reports abdominal pain controlled with Dilaudid - Patient Data Vitals - Most Recent: Last Vital Signs Temp 36.7 C 05/17/19 11:00 Pulse 88 05/17/19 11:00 Resp 16 05/17/19 11:00 BP 144/104 H 05/17/19 11:00 Pulse Ox 99 05/17/19 11:00 Weight - Most Recent: 70.3 kg I&O - Last 24 Hours: Intake & Output 05/16/19 05/17/19 05/17/19 22:59 06:59 14:59 Intake Total 2007 1800 Output Total 1100 Balance 2007 700 Lab Results Last 24 Hours: Laboratory Results - last 24 hr 05/17/19 05/17/19 Range/Units 06:09 06:09 WBC 6.41 (4.0-11.0) K/uL RBC 4.03 L (4.30-5.90) M/uL Hgb 12.6 (12.0-16.0) g/dL Hct 37.8 (36.0-46.0) % MCV 93.8 (80.0-98.0) fL MCH 31.3 (27.0-32.0) pg MCHC 33.3 (31.0-37.0) g/dL RDW Std Deviation 45.4 (28.0-62.0) fl RDW Coeff of [place] 13 (11.0-15.0) % Plt Count 149 L (150-400) K/uL MPV 8.60 (7.40-12.00) fL Neut % (Auto) 41.8 L (48.0-80.0) % Lymph % (Auto) 45.6 H (16.0-40.0) % [place] % (Auto) 10.5 (0.0-15.0) % Eos % (Auto) 1.6 (0.0-7.0) % Baso % (Auto) 0.5 (0.0-1.5) % Neut # (Auto) 2.7 (1.4-5.7) K/uL Lymph # (Auto) 2.9 H (0.6-2.4) K/uL [place] # (Auto) 0.7 (0.0-0.8) K/uL Eos # (Auto) 0.1 (0.0-0.7) K/uL Baso # (Auto) 0.0 (0.0-0.1) K/uL Nucleated RBC % 0.0 /100WBC Nucleated RBCs # 0 K/uL Sodium 137 (136-145) mmol/L Potassium 3.2 L (3.5-5.1) mmol/L Chloride 102 (98-107) mmol/L Carbon Dioxide 25.7 (21.0-32.0) mmol/L BUN 6 L (7.0-18.0) mg/dL Creatinine 0.6 (0.6-1.0) mg/dL Est Cr Clr Drug Dosing 115.16 mL/min Estimated GFR (MDRD) > 60.0 ml/min Glucose 95 (74-106) mg/dL Calcium 6.5 L (8.5-10.1) mg/dL Total Bilirubin 0.8 (0.2-1.0) mg/dL AST 42 H (15-37) IU/L ALT 27 (14-63) IU/L Alkaline Phosphatase 70 (46-116) U/L Total Protein 6.1 L (6.4-8.2) g/dL Albumin 2.9 L (3.4-5.0) g/dL Globulin 3.2 (2.6-4.0) g/dL Albumin/Globulin Ratio 0.9 (0.9-1.6) Med Orders - Current: Current Medications Folic Acid (Folic Acid) 1 mg SUBCUT DAILY [facility] Last Admin: 05/17/19 08:37 Dose: 1 mg Hydromorphone HCl (Dilaudid) 1 mg IVPUSH Q3H PRN PRN Reason: Pain Last Admin: 05/17/19 12:30 Dose: 1 mg Sodium Chloride (Normal Saline) 1,000 mls @ 200 mls/hr IV ASDIRECTED [facility] Last Admin: 05/17/19 10:10 Dose: 200 mls/hr Pantoprazole Sodium 40 mg/ (Sodium Chloride) 10 mls @ 300 mls/hr IV Q24H [facility] Last Admin: 05/16/19 17:50 Dose: 300 mls/hr Lorazepam (Ativan) 0 mg IVPUSH Q4H PRN; Protocol PRN Reason: [email or web address] Last Admin: 05/17/19 09:22 Dose: 1 mg Ondansetron HCl (Zofran) 4 mg IVPUSH Q4H PRN PRN Reason: Nausea Promethazine HCl (Phenergan) 25 mg IM Q6H PRN PRN Reason: Nausea Last Admin: 05/16/19 18:41 Dose: 25 mg Thiamine HCl (Vitamin B-1) 100 mg IVPUSH DAILY [facility] Last Admin: 05/17/19 08:41 Dose: 100 mg Discontinued Medications Acetaminophen (Tylenol Extra Strength) 1,000 mg PO ONETIME ONE Stop: 05/16/19 14:14 Last Admin: 05/16/19 14:18 Dose: 1,000 mg Sodium Chloride (Normal Saline) 1,000 mls @ 999 mls/hr IV STAT ONE Stop: 05/16/19 13:14 Last Admin: 05/16/19 12:51 Dose: 999 mls/hr Sodium Chloride (Normal Saline) 1,000 mls @ 1,000 mls/hr IV .Bolus ONE Stop: 05/16/19 17:45 Last Admin: 05/16/19 17:45 Dose: 1,000 mls/hr Iopamidol (Isovue-370 (76%)) 100 ml IVPUSH ONETIME STA Stop: 05/16/19 13:49 Last Admin: 05/16/19 13:48 Dose: 100 ml Ketorolac Tromethamine (Toradol) 30 mg IVPUSH ONETIME ONE Stop: 05/16/19 12:31 Last Admin: 05/16/19 12:51 Dose: 30 mg Morphine Sulfate (Morphine) 2 mg IVPUSH ONETIME ONE Stop: 05/16/19 14:59 Last Admin: 05/16/19 15:05 Dose: 2 mg Ondansetron HCl (Zofran) 4 mg IVPUSH ONETIME ONE Stop: 05/16/19 12:31 Last Admin: 05/16/19 12:51 Dose: 4 mg - Exam General: Alert, Oriented Lungs: Clear to Auscultation, Normal Respiratory Effort Cardiovascular: Regular Rate, Regular Rhythm GI/Abdominal Exam: Tender (all four quadrants) Extremities: Non-Tender, No Pedal Edema - Problem List Review Problem List Initiated/Reviewed/Updated: Yes - My Orders Last 24 Hours: My Active Orders 05/16/19 16:45 HYDROmorphone [Dilaudid] 1 mg IVPUSH Q3H PRN 05/16/19 16:47 Oxygen Therapy [RC] PRN Up ad [place] [RC] ASDIRECTED VTE/DVT Education [RC] PER UNIT ROUTINE Vital Signs [RC] Q4H Ondansetron [Zofran] 4 mg IVPUSH Q4H PRN Promethazine [Phenergan] 25 mg IM Q6H PRN Sequential Compression Device [OM.PC] Per Unit Routine Resuscitation Status Routine 05/16/19 16:57 Antiembolic Devices [RC] PER UNIT ROUTINE 05/16/19 16:58 LORazepam [Ativan] See Protocol IVPUSH Q4H PRN 05/16/19 17:00 Folic Acid 1 mg SUBCUT DAILY Pantoprazole [ProTONIX IV] 40 mg Sodium Chloride 0.9% [Normal Saline] 10 ml IV Q24H Sodium Chloride 0.9% [Normal Saline] 1,000 ml IV ASDIRECTED Thiamine [Vitamin B-1] 100 mg IVPUSH DAILY 05/18/19 05:11 BASIC METABOLIC PANEL,BMP [CHEM] AM CBC WITH AUTO DIFF [HEME] AM 05/19/19 05:11 BASIC METABOLIC PANEL,BMP [CHEM] AM CBC WITH AUTO DIFF [HEME] AM - Plan Plan:: 34 yo female admitted for acute on chronic alcoholic pancreatitis. Continue IV fluids and bowel rest. Placed on [place] protocol with ativan prn
[2019-05-17] MEDS: Pantoprazole 40 MG in Sodium Chloride 0.9% 10 ML IV SCH (16:52)
[2019-05-18] MEDS: HYDROmorphone 1 MG/ML Syringe IVPUSH PRN ×3 (00:47→06:55)
[2019-05-18] MEDS: Sodium Chloride 0.9% 1,000 ML IV SCH ×2 (03:00→07:52)
[2019-05-18 06:18] LABS: BLOOD UREA NITROGEN,BUN 2 mg/dL (7.0-18.0); CARBON DIOXIDE,CO2 25.7 mmol/L (21.0-32.0); CHLORIDE,CL 103 mmol/L (98-107); GLUCOSE RANDOM 120 mg/dL (74-106); POTASSIUM,K 3.9 mmol/L (3.5-5.1); SODIUM,NA 136 mmol/L (136-145)
[2019-05-18] MEDS: Folic Acid 50 MG/10 ML MDV SUBCUT SCH (09:56)
[2019-05-18] MEDS: Thiamine 200 MG/2 ML MDV IVPUSH SCH (10:05)
--- NOTE | 2019-05-18 11:05 | PCM.DCSUM1 ---
Discharge Summary - Discharge Data Discharge Date: 05/18/19 Discharge Disposition: Home, Self-Care 01 Condition: Good - Referral to Home Health Primary Care Physician: Jarrett Harper MD - Patient Summary/Data Hospital Course: 34 yo female admitted with acute on chronic alcoholic pancreatitis. She presented with several day history of abdominal pain, nausea and vomiting. She had been sober for a few months after her last admission but has gone back to drinking. Her lipase was [address] scan of abdomen was suggestive of chronic pancreatitis with possible acute flare. She was admitted to the medical floor and treated with bowel rest, IV fluids and Dilaudid prn. She did have improvement in her abdominal pain and today she is tolerating an oral diet and requesting discharge home. She plans on attending AA and reaching out to an employment assistance program. - Patient Instructions Diet: Usual Diet as Tolerated, No Alcoholic Beverages - Discharge Plan Home Medications: Home Meds oxyCODONE 5 mg PO ASDIRECTED PRN 05/16/19 [History] Norgestimate-Ethinyl Estradiol [[place]-Linyah 28 Tablet] 1 each PO 05/17/19 [ History] Referrals: Jarrett Harper MD [Primary Care Provider] - 06/08/19 8:30 am - Discharge Summary/Plan Comment DC Time >30 min.: No - Patient Data Vitals - Most Recent: Last Vital Signs Temp 36.0 C 05/18/19 08:00 Pulse 97 05/18/19 08:00 Resp 18 05/18/19 08:00 BP 151/92 H 05/18/19 08:00 Pulse Ox 97 05/18/19 08:00 Weight - Most Recent: 70.3 kg I&O - Last 24 hours: Intake & Output 05/17/19 05/18/19 05/18/19 22:59 06:59 14:59 Intake Total 310 2400 Output Total 1800 1500 Balance -1490 900 Lab Results - Last 24 hrs: Laboratory Results - last 24 hr 05/18/19 05/18/19 Range/Units 05:50 05:50 WBC 5.66 (4.0-11.0) K/uL RBC 3.95 L (4.30-5.90) M/uL Hgb 12.5 (12.0-16.0) g/dL Hct 37.4 (36.0-46.0) % MCV 94.7 (80.0-98.0) fL MCH 31.6 (27.0-32.0) pg MCHC 33.4 (31.0-37.0) g/dL RDW Std Deviation 45.9 (28.0-62.0) fl RDW Coeff of [place] 13 (11.0-15.0) % Plt Count 128 L (150-400) K/uL MPV 8.80 (7.40-12.00) fL Neut % (Auto) 58.2 (48.0-80.0) % Lymph % (Auto) 29.5 (16.0-40.0) % [place] % (Auto) 10.6 (0.0-15.0) % Eos % (Auto) 1.2 (0.0-7.0) % Baso % (Auto) 0.5 (0.0-1.5) % Neut # (Auto) 3.3 (1.4-5.7) K/uL Lymph # (Auto) 1.7 (0.6-2.4) K/uL [place] # (Auto) 0.6 (0.0-0.8) K/uL Eos # (Auto) 0.1 (0.0-0.7) K/uL Baso # (Auto) 0.0 (0.0-0.1) K/uL Nucleated RBC % 0.0 /100WBC Nucleated RBCs # 0 K/uL Sodium 136 (136-145) mmol/L Potassium 3.9 (3.5-5.1) mmol/L Chloride 103 (98-107) mmol/L Carbon Dioxide 25.7 (21.0-32.0) mmol/L BUN 2 L (7.0-18.0) mg/dL Creatinine 0.6 (0.6-1.0) mg/dL Est Cr Clr Drug Dosing 115.16 mL/min Estimated GFR (MDRD) > 60.0 ml/min Glucose 120 H (74-106) mg/dL Calcium 6.4 L (8.5-10.1) mg/dL CHRISTINE Results - Last 24 hrs: Microbiology 05/16/19 12:01 Urine Culture - Final Urine, Clean Catch MIXED DAVID >100,000 CFU/ML Med Orders - Current: Current Medications Folic Acid (Folic Acid) 1 mg SUBCUT DAILY [facility] Last Admin: 05/18/19 09:56 Dose: 1 mg Sodium Chloride (Normal Saline) 1,000 mls @ 200 mls/hr IV ASDIRECTED [facility] Last Admin: 05/18/19 07:52 Dose: 200 mls/hr Pantoprazole Sodium 40 mg/ (Sodium Chloride) 10 mls @ 300 mls/hr IV Q24H [facility] Last Admin: 05/17/19 16:52 Dose: 300 mls/hr Lorazepam (Ativan) 0 mg IVPUSH Q4H PRN; Protocol PRN Reason: [email or web address] Last Admin: 05/17/19 09:22 Dose: 1 mg Ondansetron HCl (Zofran) 4 mg IVPUSH Q4H PRN PRN Reason: Nausea Promethazine HCl (Phenergan) 25 mg IM Q6H PRN PRN Reason: Nausea Last Admin: 05/16/19 18:41 Dose: 25 mg Thiamine HCl (Vitamin B-1) 100 mg IVPUSH DAILY [facility] Last Admin: 05/18/19 10:05 Dose: 100 mg Discontinued Medications Acetaminophen (Tylenol Extra Strength) 1,000 mg PO ONETIME ONE Stop: 05/16/19 14:14 Last Admin: 05/16/19 14:18 Dose: 1,000 mg Hydromorphone HCl (Dilaudid) 1 mg IVPUSH Q3H PRN PRN Reason: Pain Last Admin: 05/18/19 06:55 Dose: 1 mg Sodium Chloride (Normal Saline) 1,000 mls @ 999 mls/hr IV STAT ONE Stop: 05/16/19 13:14 Last Admin: 05/16/19 12:51 Dose: 999 mls/hr Sodium Chloride (Normal Saline) 1,000 mls @ 1,000 mls/hr IV .Bolus ONE Stop: 05/16/19 17:45 Last Admin: 05/16/19 17:45 Dose: 1,000 mls/hr Iopamidol (Isovue-370 (76%)) 100 ml IVPUSH ONETIME STA Stop: 05/16/19 13:49 Last Admin: 05/16/19 13:48 Dose: 100 ml Ketorolac Tromethamine (Toradol) 30 mg IVPUSH ONETIME ONE Stop: 05/16/19 12:31 Last Admin: 05/16/19 12:51 Dose: 30 mg Morphine Sulfate (Morphine) 2 mg IVPUSH ONETIME ONE Stop: 05/16/19 14:59 Last Admin: 05/16/19 15:05 Dose: 2 mg Ondansetron HCl (Zofran) 4 mg IVPUSH ONETIME ONE Stop: 05/16/19 12:31 Last Admin: 05/16/19 12:51 Dose: 4 mg
== END 2019-05-18 11:15 | disposition home or self-care (01) ==
LOC: MW.ED 12:01 → MW.MS 15:17
PROVIDERS: ADMIT Internal Medicine; ATTEND Internal Medicine
DX: K85.20 Alcohol induced acute pancreatitis without necrosis or infection (principal); K86.0 Alcohol-induced chronic pancreatitis
CPT/HCPCS: 36415; 74177; 80048; 80053; 81001; 81025; 82150; 83690; 85025; 87086; 96361; 96374; 96375; 99285; A9270; C9113; J1170; J1885; J2060; J2270; J2405; J2550; J3411; J7040; J7050; Q9967

== ENCOUNTER 2019-09-15 08:06 | Observation (INO) | payer BC, OTHER ==
[2019-09-15] MEDS ORDERED: Sodium Chloride 0.9% 1,000 ML IV ONE (08:37)
--- NOTE | 2019-09-15 08:39 | EDM.PDOC ---
ED HPI GENERAL MEDICAL PROBLEM - General Chief Complaint: Abdominal Pain Stated Complaint: STOMACH PAIN Time Seen by Provider: 09/15/19 08:36 Source of Information: Reports: Patient History Limitations: Reports: No Limitations - History of Present Illness INITIAL COMMENTS - FREE TEXT/NARRATIVE: This 34 year old female is admitted to the ED with a chief complaint of epigastric pain through to the back since 6:00AM this morning. She states that she had a few shots of Vodka yesterday. She describes the pain as sharp to dull and is constant. She complains of nausea and vomiting. She denies any other complaints at this time. Onset: Today Duration: Getting Worse Location: Reports: Abdomen Quality: Reports: Sharp (in the epigastric area through to the back) Severity: Moderate Middle Abdomen Pain Score (Numeric/FACES): 9 - Related Data Allergies Allergy/AdvReac Type Severity Reaction Status Date / Time No Known Allergies Allergy Verified 09/15/19 08:36 Home Meds: Home Meds Norgestimate-Ethinyl Estradiol [[place]-Linyah 28 Tablet] 1 each PO DAILY 05/17/19 [History] Past Medical History - Past Health History Medical/Surgical History: Denies Medical/Surgical History HEENT History: Reports: None Cardiovascular History: Reports: Blood Clots/VTE/DVT Other Cardiovascular History: blood clot on the liver Respiratory History: Reports: None Gastrointestinal History: Reports: Pancreatitis Genitourinary History: Reports: None 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 Musculoskeletal History: Reports: None Neurological History: Reports: None Psychiatric History: Reports: Addiction Other Psychiatric History: ETOH Endocrine/Metabolic History: Reports: None Hematologic History: Reports: None Immunologic History: Reports: None Oncologic (Cancer) History: Reports: None Dermatologic History: Reports: None - Infectious Disease History Infectious Disease History: Reports: None - Past Surgical History Head Surgeries/Procedures: Reports: None HEENT Surgical History: Reports: None Cardiovascular Surgical History: Reports: None Respiratory Surgical History: Reports: None GI Surgical History: Reports: EGD Female Surgical History: Reports: None Endocrine Surgical History: Reports: None Neurological Surgical History: Reports: None Musculoskeletal Surgical History: Reports: None Oncologic Surgical History: Reports: None Dermatological Surgical History: Reports: None Social & Family History - Family History Family Medical History: Noncontributory Cardiac: Reports: [place] - Caffeine Use Caffeine Use: Reports: Soda Other Caffeine Use: 2 Diet Cokes a day - Living Situation & Occupation Living situation: Reports: Single Occupation: Unemployed ED ROS GENERAL - Review of Systems Review Of Systems: See Below Constitutional: Reports: No Symptoms HEENT: Reports: No Symptoms Respiratory: Reports: No Symptoms Cardiovascular: Reports: No Symptoms Endocrine: Reports: No Symptoms GI/Abdominal: Reports: Abdominal Pain, Nausea, Vomiting. Denies: Hematemesis, Hematochezia : Reports: No Symptoms Musculoskeletal: Reports: No Symptoms Skin: Reports: No Symptoms Neurological: Reports: No Symptoms ED EXAM, GI/ABD - Physical Exam Exam: See Below Exam Limited By: No Limitations General Appearance: Alert, WD/WN, Moderate Distress (complaining of epigastric abdominal pain) Throat/Mouth: Normal Inspection, Normal Lips, Normal Teeth, Normal Gums, Normal Oropharynx, Normal Voice, No Airway Compromise Head: Atraumatic, Normocephalic Neck: Normal Inspection, Supple, Non-Tender, Full Range of Motion Respiratory/Chest: No Respiratory Distress, Lungs Clear, Normal Breath Sounds, Chest Non-Tender Cardiovascular: Normal Peripheral Pulses, Regular Rate, Rhythm, No Edema, No Gallop, No JVD, No Murmur GI/Abdominal Exam: Normal Bowel Sounds, Soft, Guarding, Tender (marked tenderness noted in the epigastric area.). No: Rebound, Hernia, Mass (Female) Exam: Deferred Rectal (Female) Exam: Deferred Back Exam: Normal Inspection, Full Range of Motion Extremities: Normal Inspection, Normal Range of Motion, Non-Tender, Normal Capillary Refill Neurological: Alert, Oriented (times 4), CN II-XII Intact, Normal Reflexes Psychiatric: Normal Affect, Normal Mood Skin Exam: Warm, Dry, Intact, Normal Color, No Rash Lymphatic: No Adenopathy Course - Vital Signs Text/Narrative:: I discussed this case with Dr. Last's Resident. She will be admitted to OBS/ TELE. The patient agrees with the admission plan. Last Recorded V/S: Last Vital Signs Temp 96.5 F L 09/15/19 08:34 Pulse 94 09/15/19 11:35 Resp 18 09/15/19 11:35 BP 173/110 H 09/15/19 11:35 Pulse Ox 99 09/15/19 11:35 - Orders/Labs/Meds Orders: Active Orders 24 hr Category Date Time Status UA W/CHRISTINE RFLX IF INDICATED [URIN] Stat Lab 09/15/19 08:38 Ordered Urine [HCG QUALITATIVE,URINE] [URCHEM] Stat Lab 09/15/19 08:38 Ordered Magnesium Sulfate/Water [Magnesium Sulfate in Water Med 09/15/19 11:45 Active Premix] 2 gm Premix Bag 1 bag IV ONETIME Sodium Chloride 0.9% [Normal Saline] 500 ml Med 09/15/19 11:30 Active IV .BOLUS Medication Orders Sodium Chloride (Normal Saline) 500 mls @ 500 mls/hr IV .BOLUS [facility] Last Admin: 09/15/19 11:39 Dose: 500 mls/hr Magnesium Sulfate 2 gm/ Premix 50 mls @ 50 mls/hr IV ONETIME ONE Stop: 09/15/19 12:44 Last Admin: 09/15/19 11:51 Dose: 50 mls/hr Labs: Laboratory Tests 09/15/19 09/15/19 09/15/19 Range/Units 09:45 09:45 09:45 WBC 8.88 (4.0-11.0) K/uL RBC 4.27 L (4.30-5.90) M/uL Hgb 13.9 (12.0-16.0) g/dL Hct 40.8 (36.0-46.0) % MCV 95.6 (80.0-98.0) fL MCH 32.6 H (27.0-32.0) pg MCHC 34.1 (31.0-37.0) g/dL RDW Std Deviation 42.8 (28.0-62.0) fl RDW Coeff of [place] 12 (11.0-15.0) % Plt Count 278 (150-400) K/uL MPV 8.60 (7.40-12.00) fL Neut % (Auto) 63.0 (48.0-80.0) % Lymph % (Auto) 28.0 (16.0-40.0) % [place] % (Auto) 7.7 (0.0-15.0) % Eos % (Auto) 0.7 (0.0-7.0) % Baso % (Auto) 0.6 (0.0-1.5) % Neut # (Auto) 5.6 (1.4-5.7) K/uL Lymph # (Auto) 2.5 H (0.6-2.4) K/uL [place] # (Auto) 0.7 (0.0-0.8) K/uL Eos # (Auto) 0.1 (0.0-0.7) K/uL Baso # (Auto) 0.1 (0.0-0.1) K/uL Nucleated RBC % 0.0 /100WBC Nucleated RBCs # 0 K/uL Sodium 140 (136-145) mmol/L Potassium 3.8 (3.5-5.1) mmol/L Chloride 101 (98-107) mmol/L Carbon Dioxide 24.1 (21.0-32.0) mmol/L BUN 14 (7.0-18.0) mg/dL Creatinine 0.7 (0.6-1.0) mg/dL Est Cr Clr Drug Dosing 98.71 mL/min Estimated GFR (MDRD) > 60.0 ml/min Glucose 122 H (74-106) mg/dL Calcium 8.5 (8.5-10.1) mg/dL Magnesium 1.7 L (1.8-2.4) mg/dL Total Bilirubin 0.3 (0.2-1.0) mg/dL AST 38 H (15-37) IU/L ALT 29 (14-63) IU/L Alkaline Phosphatase 83 (46-116) U/L Total Protein 7.1 (6.4-8.2) g/dL Albumin 3.6 (3.4-5.0) g/dL Globulin 3.5 (2.6-4.0) g/dL Albumin/Globulin Ratio 1.0 (0.9-1.6) Lipase 912 H (73-393) U/L HCG, Qual NEGATIVE (NEG) Meds: Medications Generic Name Dose Route Start Last Admin Trade Name Freq PRN Reason Stop Dose Admin Sodium Chloride 500 mls @ 500 mls/hr 09/15/19 11:30 09/15/19 11:39 Normal Saline IV 500 mls/hr .BOLUS CARLITOS Administration Magnesium Sulfate 2 gm/ Premix 50 mls @ 50 mls/hr 09/15/19 11:45 09/15/19 11: 51 IV 09/15/19 12:44 50 mls/hr ONETIME ONE Administration Discontinued Medications Generic Name Dose Route Start Last Admin Trade Name Jackie PRN Reason Stop Dose Admin Hydromorphone HCl 1 mg 09/15/19 11:32 09/15/19 11:40 Dilaudid IVPUSH 09/15/19 11:33 1 mg ONETIME ONE Administration Sodium Chloride 1,000 mls @ 1,000 mls/hr 09/15/19 08:37 09/15/19 09:38 Normal Saline IV 09/15/19 09:36 1,000 mls/hr .Bolus ONE Administration Iopamidol 100 ml 09/15/19 11:01 09/15/19 11:02 Isovue Multipack-370 (76%) IVPUSH 09/15/19 11:02 100 ml ONETIME ONE Administration Magnesium Sulfate 2 gm 09/15/19 11:36 Magnesium Sulfate 50% IV 09/15/19 11:37 ONETIME ONE Morphine Sulfate 4 mg 09/15/19 09:31 09/15/19 09:38 Morphine IVPUSH 09/15/19 09:32 4 mg ONETIME ONE Administration Morphine Sulfate 4 mg 09/15/19 11:18 09/15/19 11:40 Morphine IVPUSH 09/15/19 11:19 Not Given ONETIME ONE Ondansetron HCl 4 mg 09/15/19 09:31 09/15/19 09:38 Zofran IVPUSH 09/15/19 09:32 4 mg ONETIME ONE Administration Departure - Departure Time of Disposition: 12:12 Disposition: Refer to Observation Condition: Fair Clinical Impression: Pancreatitis, acute Qualifiers: Pancreatitis type: alcohol induced Acute pancreatitis complication: unspecified Qualified Code(s): K85.20 - Alcohol induced acute pancreatitis without necrosis or infection - Discharge Information *PRESCRIPTION DRUG MONITORING PROGRAM REVIEWED*: Yes *COPY OF PRESCRIPTION DRUG MONITORING REPORT IN PATIENT RENÉE: Yes Referrals: PCP,None [Primary Care Provider] - Forms: ED Department Discharge Sepsis Event Note - Focused Exam Vital Signs: Vital Signs Temp Pulse Resp BP Pulse Ox 09/15/19 11:35 94 18 173/110 H 99 09/15/19 10:17 83 18 146/82 H 99 09/15/19 08:34 96.5 F L 87 18 175/120 H 100 Date Exam was Performed: 09/15/19 Time Exam was Performed: 12:10 - My Orders Last 24 Hours: My Active Orders 09/15/19 08:38 UA W/CHRISTINE RFLX IF INDICATED [URIN] Stat Urine [HCG QUALITATIVE,URINE] [URCHEM] Stat 09/15/19 11:30 Sodium Chloride 0.9% [Normal Saline] 500 ml IV .BOLUS 09/15/19 11:45 Magnesium Sulfate/Water [Magnesium Sulfate in Water Premix] 2 gm Premix Bag 1 bag IV ONETIME - Assessment/Plan Last 24 Hours: My Active Orders 09/15/19 08:38 UA W/CHRISTINE RFLX IF INDICATED [URIN] Stat Urine [HCG QUALITATIVE,URINE] [URCHEM] Stat 09/15/19 11:30 Sodium Chloride 0.9% [Normal Saline] 500 ml IV .BOLUS 09/15/19 11:45 Magnesium Sulfate/Water [Magnesium Sulfate in Water Premix] 2 gm Premix Bag 1 bag IV ONETIME
[2019-09-15] MEDS ORDERED: Morphine 4 MG/ML Syringe IVPUSH ONE ×2 (09:31→11:18)
[2019-09-15] MEDS ORDERED: Ondansetron 4 MG/2 ML SDV IVPUSH ONE (09:31)
[2019-09-15 10:20] LABS: BLOOD UREA NITROGEN,BUN 14 mg/dL (7.0-18.0); CARBON DIOXIDE,CO2 24.1 mmol/L (21.0-32.0); CHLORIDE,CL 101 mmol/L (98-107); GLUCOSE RANDOM 122 mg/dL (74-106); LIPASE 912 U/L (73-393); POTASSIUM,K 3.8 mmol/L (3.5-5.1); SODIUM,NA 140 mmol/L (136-145)
[2019-09-15] MEDS ORDERED: Iopamidol 755 MG/ML 500 ML Multipack Bottle IVPUSH ONE (11:01)
[2019-09-15] MEDS ORDERED: Sodium Chloride 0.9% 500 ML IV SCH (11:30)
[2019-09-15] MEDS ORDERED: HYDROmorphone 1 MG/ML Syringe IVPUSH ONE (11:32)
--- NOTE | 2019-09-15 11:32 | CT ---
CT abdomen and pelvis Technique: Multiple axial sections were obtained from above the dome of the diaphragm inferiorly through the pubic symphysis. Intravenous contrast was utilized. No oral contrast has been given. Comparison: Previous CT abdomen and pelvis study of 05/16/19. Findings: Inflammatory change is seen around the pancreas compatible with pancreatitis. Most of this inflammatory change is seen on prior exam although findings are felt to have slightly increased in amount around the pancreatic tail. Findings may represent acute on chronic pancreatitis. Low-density lesion is again seen next to the ligamentum teres fissure within the right lobe which is stable. No additional liver abnormality is appreciated. Visualized lung bases showed nothing acute. No discrete adrenal abnormality is appreciated. Kidneys show symmetric contrast enhancement without hydronephrosis or mass. Gallbladder contains no calcified gallstones. Aorta shows no aneurysm. No retroperitoneal adenopathy or mesenteric abnormalities are noted. Mesenteric collaterals are seen around the pancreas which are stable. No pelvic mass or adenopathy is identified. Impression: 1. Inflammatory change around the pancreas. Most of this finding is stable from previous CT. Minimal increased inflammatory change is suggested around the pancreatic tail. Findings most likely represent chronic pancreatitis with mild superimposed acute pancreatitis. 2. Stable mesenteric collaterals. 3. Stable liver lesion next to the ligamentum teres fissure. Diagnostic code #3 This report was dictated in MDT
[2019-09-15] MEDS ORDERED: Magnesium Sulfate (4.06 MEQ/ML) 5 GM/10 ML SDV IV ONE (11:36)
[2019-09-15] MEDS ORDERED: Magnesium Sulfate/Water 2 GM in Premix Bag 1 BAG IV ONE (11:45)
[2019-09-15] MEDS ORDERED: Ondansetron 4 MG/2 ML SDV IVPUSH PRN (12:32)
[2019-09-15] MEDS ORDERED: Morphine 10 MG/ML Syringe IVPUSH PRN (12:32)
[2019-09-15] MEDS ORDERED: MVI, Adult with Vitamin K 10 ML, Thiamine 100 MG, Folic Acid 1 MG in Sodium Chloride 0.... IV ONE ×4 (12:41)
[2019-09-15] MEDS ORDERED: LORazepam 2 MG/ML SDV IVPUSH PRN (12:43)
--- NOTE | 2019-09-15 13:11 | PCM.HP.2 ---
H&P History of Present Illness - General Date of Service: 09/15/19 Admit Problem/Dx: Admission Diagnosis/Problem Admission Diagnosis/Problem Acute pancreatitis Source of Information: Patient History Limitations: Reports: No Limitations - History of Present Illness Initial Comments - Free Text/Narative: 34-year-old female presents with abdominal pain, nausea and vomiting that started at around 6 AM this morning. She has a PMH of alcohol abuse and chronic pancreatitis. The abdominal pain is located in her upper abdomen and radiates to her shoulder blades at times. She reports drinking 6 shots of vodka yesterday evening. She drinks approximately 5-6 shots of vodka 5 days per week since her last admission to the hospital for acute pancreatitis approximately 4 months ago. She reports being in rehab for her alcohol use 2.5 years ago. She denies any fevers, chills, sore throat, cough, SOB, chest pain, blood in stool, blood in urine, numbness or tingling in extremities. In the ER, lipase level was ~900, CT abd/pelvis showed minimal increased inflammatory change around pancreas likely representing chronic chronic pancreatitis with mild superimposed acute pancreatitis. Patient received 1500 cc NS bolus in ER, IV morphine, IV dilaudid and IV magnesium sulfate. Admitted for further evaluation and treatment. Middle Abdomen Pain Score (Numeric/FACES): 9 - Related Data Allergies/Adverse Reactions: Allergies Allergy/AdvReac Type Severity Reaction Status Date / Time No Known Allergies Allergy Verified 09/15/19 14:48 Home Medications: Home Meds Norgestimate-Ethinyl Estradiol [[place]iny[place] 28 Tablet] 1 each PO DAILY 05/17/19 [History] Acetaminophen/oxyCODONE [Percocet 325-5 MG] 1 tab PO BID 09/15/19 [History] Past Medical History - Past Health History Medical/Surgical History: Denies Medical/Surgical History HEENT History: Reports: None Cardiovascular History: Reports: Blood Clots/VTE/DVT Other Cardiovascular History: blood clot on the liver Respiratory History: Reports: None Gastrointestinal History: Reports: Pancreatitis Genitourinary History: Reports: None [employer] History: Reports: None Musculoskeletal History: Reports: None Neurological History: Reports: None Psychiatric History: Reports: Addiction Other Psychiatric History: ETOH Endocrine/Metabolic History: Reports: None Hematologic History: Reports: None Immunologic History: Reports: None Oncologic (Cancer) History: Reports: None Dermatologic History: Reports: None - Infectious Disease History Infectious Disease History: Reports: None - Past Surgical History Head Surgeries/Procedures: Reports: None HEENT Surgical History: Reports: None Cardiovascular Surgical History: Reports: None Respiratory Surgical History: Reports: None GI Surgical History: Reports: EGD Female Surgical History: Reports: None Endocrine Surgical History: Reports: None Neurological Surgical History: Reports: None Musculoskeletal Surgical History: Reports: None Oncologic Surgical History: Reports: None Dermatological Surgical History: Reports: None Social & Family History - Family History Family Medical History: Noncontributory Cardiac: Reports: NM - Tobacco Use Smoking Status *Q: Never Smoker Second Hand Smoke Exposure: No - Caffeine Use Caffeine Use: Reports: Soda Other Caffeine Use: 2 Diet Cokes a day - Alcohol Use Days Per Week of Alcohol Use: 7 Number of Drinks Per Day: 3 Total Drinks Per Week: 21 - Recreational Drug Use Recreational Drug Use: No - Living Situation & Occupation Living situation: Reports: Single Occupation: Unemployed H&P Review of Systems - Review of Systems: Review Of Systems: Comprehensive ROS is negative, except as noted in HPI. Exam - Exam Exam: See Below - Vital Signs Vital Signs: Last Vital Signs Temp 96.5 F L 09/15/19 08:34 Pulse 92 09/15/19 12:40 Resp 18 09/15/19 12:40 BP 153/105 H 09/15/19 12:40 Pulse Ox 98 09/15/19 12:40 Weight: 155 lb - Exam General: Alert, Oriented, Cooperative, Mild Distress HEENT: Conjunctiva Clear, EOMI, Hearing Intact, Posterior Pharynx Clear, Pupils Equal, Pupils Reactive Neck: Supple, Trachea Midline Lungs: Clear to Auscultation, Normal Respiratory Effort Cardiovascular: Regular Rate, Regular Rhythm GI/Abdominal Exam: Normal Bowel Sounds, Soft, No Distention, Other (ttp in epigastric region) Extremities: Normal Inspection, No Pedal Edema Peripheral Pulses: 2+: Radial (L), Radial (R) Skin: Warm, Dry, Intact Neurological: Cranial Nerves Intact, Strength Equal Bilateral, Normal Speech, Normal Tone Neuro Extensive - Mental Status: Alert, Oriented x3, Normal Mood/Affect Psychiatric: Alert, Normal Affect, Normal Mood - Patient Data Lab Results Last 24 hrs: Laboratory Results - last 24 hr 09/15/19 09/15/1920 Range/Units 09:45 09:45 09:45 WBC 8.88 (4.0-11.0) K/uL RBC 4.27 L (4.30-5.90) M/uL Hgb 13.9 (12.0-16.0) g/dL Hct 40.8 (36.0-46.0) % MCV 95.6 (80.0-98.0) fL MCH 32.6 H (27.0-32.0) pg MCHC 34.1 (31.0-37.0) g/dL RDW Std Deviation 42.8 (28.0-62.0) fl RDW Coeff of [place] 12 (11.0-15.0) % Plt Count 278 (150-400) K/uL MPV 8.60 (7.40-12.00) fL Neut % (Auto) 63.0 (48.0-80.0) % Lymph % (Auto) 28.0 (16.0-40.0) % [place] % (Auto) 7.7 (0.0-15.0) % Eos % (Auto) 0.7 (0.0-7.0) % Baso % (Auto) 0.6 (0.0-1.5) % Neut # (Auto) 5.6 (1.4-5.7) K/uL Lymph # (Auto) 2.5 H (0.6-2.4) K/uL [place] # (Auto) 0.7 (0.0-0.8) K/uL Eos # (Auto) 0.1 (0.0-0.7) K/uL Baso # (Auto) 0.1 (0.0-0.1) K/uL Nucleated RBC % 0.0 /100WBC Nucleated RBCs # 0 K/uL Sodium 140 (136-145) mmol/L Potassium 3.8 (3.5-5.1) mmol/L Chloride 101 (98-107) mmol/L Carbon Dioxide 24.1 (21.0-32.0) mmol/L BUN 14 (7.0-18.0) mg/dL Creatinine 0.7 (0.6-1.0) mg/dL Est Cr Clr Drug Dosing 98.71 mL/min Estimated GFR (MDRD) > 60.0 ml/min Glucose 122 H (74-106) mg/dL Calcium 8.5 (8.5-10.1) mg/dL Magnesium 1.7 L (1.8-2.4) mg/dL Total Bilirubin 0.3 (0.2-1.0) mg/dL AST 38 H (15-37) IU/L ALT 29 (14-63) IU/L Alkaline Phosphatase 83 (46-116) U/L Total Protein 7.1 (6.4-8.2) g/dL Albumin 3.6 (3.4-5.0) g/dL Globulin 3.5 (2.6-4.0) g/dL Albumin/Globulin Ratio 1.0 (0.9-1.6) Lipase 912 H (73-393) U/L HCG, Qual NEGATIVE (NEG) Urine Color Urine Appearance Urine pH (5.0-8.0) Ur Specific [place] (1.001-1.035) Urine Protein (NEGATIVE) mg/dL Urine Glucose (UA) (NEGATIVE) mg/dL Urine Ketones (NEGATIVE) mg/dL Urine Occult Blood (NEGATIVE) Urine Nitrite (NEGATIVE) Urine Bilirubin (NEGATIVE) Urine Urobilinogen (<2.0) EU/dL Ur Leukocyte Esterase (NEGATIVE) Urine RBC (0-2/HPF) Urine WBC (0-5/HPF) Ur Epithelial Cells (NONE-FEW) Amorphous Sediment (NEGATIVE) Urine Bacteria (NEGATIVE) Urine Mucus (NONE-MOD) 09/15/19 Range/Units 12:34 WBC (4.0-11.0) K/uL RBC (4.30-5.90) M/uL Hgb (12.0-16.0) g/dL Hct (36.0-46.0) % MCV (80.0-98.0) fL MCH (27.0-32.0) pg MCHC (31.0-37.0) g/dL RDW Std Deviation (28.0-62.0) fl RDW Coeff of [place] (11.0-15.0) % Plt Count (150-400) K/uL MPV (7.40-12.00) fL Neut % (Auto) (48.0-80.0) % Lymph % (Auto) (16.0-40.0) % [place] % (Auto) (0.0-15.0) % Eos % (Auto) (0.0-7.0) % Baso % (Auto) (0.0-1.5) % Neut # (Auto) (1.4-5.7) K/uL Lymph # (Auto) (0.6-2.4) K/uL [place] # (Auto) (0.0-0.8) K/uL Eos # (Auto) (0.0-0.7) K/uL Baso # (Auto) (0.0-0.1) K/uL Nucleated RBC % /100WBC Nucleated RBCs # K/uL Sodium (136-145) mmol/L Potassium (3.5-5.1) mmol/L Chloride (98-107) mmol/L Carbon Dioxide (21.0-32.0) mmol/L BUN (7.0-18.0) mg/dL Creatinine (0.6-1.0) mg/dL Est Cr Clr Drug Dosing mL/min Estimated GFR (MDRD) ml/min Glucose (74-106) mg/dL Calcium (8.5-10.1) mg/dL Magnesium (1.8-2.4) mg/dL Total Bilirubin (0.2-1.0) mg/dL AST (15-37) IU/L ALT (14-63) IU/L Alkaline Phosphatase (46-116) U/L Total Protein (6.4-8.2) g/dL Albumin (3.4-5.0) g/dL Globulin (2.6-4.0) g/dL Albumin/Globulin Ratio (0.9-1.6) Lipase (73-393) U/L HCG, Qual (NEG) Urine Color YELLOW Urine Appearance HAZY Urine pH 5.5 (5.0-8.0) Ur Specific [place] 1.020 (1.001-1.035) Urine Protein NEGATIVE (NEGATIVE) mg/dL Urine Glucose (UA) NEGATIVE (NEGATIVE) mg/dL Urine Ketones NEGATIVE (NEGATIVE) mg/dL Urine Occult Blood SMALL H (NEGATIVE) Urine Nitrite NEGATIVE (NEGATIVE) Urine Bilirubin NEGATIVE (NEGATIVE) Urine Urobilinogen 0.2 (<2.0) EU/dL Ur Leukocyte Esterase NEGATIVE (NEGATIVE) Urine RBC 0-3 (0-2/HPF) Urine WBC 1-3 (0-5/HPF) Ur Epithelial Cells MODERATE (NONE-FEW) Amorphous Sediment LIGHT (NEGATIVE) Urine Bacteria 1+ H (NEGATIVE) Urine Mucus LIGHT (NONE-MOD) Result Diagrams: 09/15/19 09:45 09/15/19 09:45 Sepsis Event Note - Evaluation Sepsis Screening Result: No Definite Risk - Focused Exam Vital Signs: Vital Signs Temp Pulse Resp BP Pulse Ox 09/15/19 12:40 92 18 153/105 H 98 09/15/19 11:35 94 18 173/110 H 99 09/15/19 10:17 83 18 146/82 H 99 09/15/19 08:34 96.5 F L 87 18 175/120 H 100 Date Exam was Performed: 09/15/19 Time Exam was Performed: 15:59 Problem List Initiated/Reviewed/Updated: Yes Orders Last 24hrs: Active Orders 24 hr Category Date Time Status Admission Status [Patient Status] [ADT] Stat ADT 09/15/19 12:12 Active [facility] Assessment [RC] Q4H Care 09/15/19 12:43 Active Oxygen Therapy [RC] PRN Care 09/15/19 12:32 Active Up ad [place] [RC] ASDIRECTED Care 09/15/19 12:32 Active VTE/DVT Education [RC] PER UNIT ROUTINE Care 09/15/19 12:32 Active Vital Signs [RC] Q4H Care 09/15/19 12:32 Active Nothing per Oral Now Diet [DIET] Diet 09/15/19 Lunch Active CBC WITH AUTO DIFF [HEME] AM Lab 09/16/19 05:11 Ordered COMPREHENSIVE METABOLIC PN,CMP [CHEM] AM Lab 09/16/19 05:11 Ordered Enoxaparin [Lovenox] Med 09/15/19 12:45 Active 40 mg SUBCUT Q24H HYDROmorphone [Dilaudid] Med 09/15/19 12:39 Active 1 mg IVPUSH Q4H PRN Ketorolac [Toradol] Med 09/15/19 12:32 Active 30 mg IV Q6H PRN LORazepam [Ativan] Med 09/15/19 12:43 Active See Protocol IVPUSH Q4H PRN MVI, Adult with Vitamin K [Infuvite Adult] 10 ml Med 09/15/19 12:41 Active Thiamine [Vitamin B-1] 100 mg Folic Acid 1 mg Sodium Chloride 0.9% [Normal Saline] 1,000 ml IV ONETIME Ondansetron [Zofran] Med 09/15/19 12:32 Active 4 mg IVPUSH Q4H PRN Sodium Chloride 0.9% [Normal Saline] 1,000 ml Med 09/15/19 12:45 Active IV ASDIRECTED Sodium Chloride 0.9% [Normal Saline] 500 ml Med 09/15/19 11:30 Active IV .BOLUS Resuscitation Status Routine Resus Stat 09/15/19 12:32 Ordered Medication Orders Enoxaparin Sodium (Lovenox) 40 mg SUBCUT Q24H [facility] Hydromorphone HCl (Dilaudid) 1 mg IVPUSH Q4H PRN PRN Reason: Pain (severe 7-10) Sodium Chloride (Normal Saline) 500 mls @ 500 mls/hr IV .BOLUS [facility] Last Admin: 09/15/19 11:39 Dose: 500 mls/hr Sodium Chloride (Normal Saline) 1,000 mls @ 150 mls/hr IV ASDIRECTED [facility] Multivitamins/Minerals 10 ml/Thiamine HCl 100 mg/ Folic Acid 1 mg/ Sodium Chloride 1,011.2 mls @ 200 mls/hr IV ONETIME ONE Stop: 09/15/19 17:44 Ketorolac Tromethamine (Toradol) 30 mg IV Q6H PRN PRN Reason: Pain (moderate 4-6) Lorazepam (Ativan) 0 mg IVPUSH Q4H PRN; Protocol PRN Reason: Withdrawal Symptoms Ondansetron HCl (Zofran) 4 mg IVPUSH Q4H PRN PRN Reason: Nausea Assessment/Plan Comment:: Assessment and Plan: 1. Acute on chronic pancreatitis: - Admit to med/surg. NPO. Patient received 1.5 L fluid bolus in ER. Will start IV banana bag then run IV NS @ 150 cc/hr. IV toradol 30 mg q6 prn and IV dilaudid 1 mg q4 prn severe pain for now. Zofran prn nausea. Repeat CBC and CMP with AM labs. 2. Alcohol abuse: - Ativan per [facility] protocol. Will received IV banana bag today and will start PO thiamine and folic acid tomorrow. Counselled patient on alcohol cessation. 3. Hypomagnesemia: - Patient received IV 2 g magnesium sulfate in ER. Will monitor with next set of labs. 4. DVT prophylaxis: lovenox.
[2019-09-15] MEDS: Enoxaparin 40 MG/0.4 ML Syringe SUBCUT SCH (13:46)
[2019-09-15] MEDS: HYDROmorphone 1 MG/ML Syringe IVPUSH PRN ×3 (13:46→22:13)
[2019-09-15] MEDS: Pantoprazole 40 MG in Sodium Chloride 0.9% 10 ML IV SCH (15:24)
[2019-09-15] MEDS: Ketorolac 30 MG/ML SDV IV PRN (15:28)
[2019-09-15] MEDS: Sodium Chloride 0.9% 1,000 ML IV SCH (20:11)
[2019-09-15] MEDS: Labetalol 100 MG/20 ML MDV IVPUSH PRN (20:32)
[2019-09-16] MEDS: Ketorolac 30 MG/ML SDV IV PRN (00:26)
[2019-09-16] MEDS: HYDROmorphone 1 MG/ML Syringe IVPUSH PRN (02:32)
[2019-09-16] MEDS: Sodium Chloride 0.9% 1,000 ML IV SCH ×4 (02:39→22:46)
[2019-09-16] MEDS: Morphine 4 MG/ML Syringe IVPUSH PRN ×2 (05:52→10:50)
[2019-09-16 07:22] LABS: BLOOD UREA NITROGEN,BUN 5 mg/dL (7.0-18.0); CARBON DIOXIDE,CO2 22.3 mmol/L (21.0-32.0); CHLORIDE,CL 106 mmol/L (98-107); GLUCOSE RANDOM 111 mg/dL (74-106); POTASSIUM,K 3.6 mmol/L (3.5-5.1); SODIUM,NA 137 mmol/L (136-145)
[2019-09-16 07:37] LABS: LIPASE 2730 U/L (73-393)
[2019-09-16] MEDS: Pantoprazole 40 MG in Sodium Chloride 0.9% 10 ML IV SCH (08:12)
[2019-09-16] MEDS: Ketorolac 15 MG/ML SDV IVPUSH PRN ×2 (08:13→11:58)
[2019-09-16] MEDS: NORGESTIMATE ETHINYL ESTRADIOL PO SCH (09:13)
--- NOTE | 2019-09-16 09:44 | PCM.PN ---
- General Info Date of Service: 09/16/19 Subjective Update: Patient reports pain not improved much since yesterday. No nausea or vomiting. No appetite at this time. Has been urinating a lot. - Patient Data Vitals - Most Recent: Last Vital Signs Temp 98.0 F 09/16/19 09:00 Pulse 80 09/16/19 09:00 Resp 17 09/16/19 09:00 BP 164/107 H 09/16/19 09:00 Pulse Ox 99 09/16/19 09:00 Weight - Most Recent: 155 lb I&O - Last 24 Hours: Intake & Output 09/15/19 09/16/19 09/16/19 22:59 06:59 14:59 Intake Total 2064 Output Total 500 Balance 1564 Lab Results Last 24 Hours: Laboratory Results - last 24 hr 09/15/19 09/15/19 09/15/19 Range/Units 09:45 09:45 09:45 WBC 8.88 (4.0-11.0) K/uL RBC 4.27 L (4.30-5.90) M/uL Hgb 13.9 (12.0-16.0) g/dL Hct 40.8 (36.0-46.0) % MCV 95.6 (80.0-98.0) fL MCH 32.6 H (27.0-32.0) pg MCHC 34.1 (31.0-37.0) g/dL RDW Std Deviation 42.8 (28.0-62.0) fl RDW Coeff of [place] 12 (11.0-15.0) % Plt Count 278 (150-400) K/uL MPV 8.60 (7.40-12.00) fL Neut % (Auto) 63.0 (48.0-80.0) % Lymph % (Auto) 28.0 (16.0-40.0) % [place] % (Auto) 7.7 (0.0-15.0) % Eos % (Auto) 0.7 (0.0-7.0) % Baso % (Auto) 0.6 (0.0-1.5) % Neut # (Auto) 5.6 (1.4-5.7) K/uL Lymph # (Auto) 2.5 H (0.6-2.4) K/uL [place] # (Auto) 0.7 (0.0-0.8) K/uL Eos # (Auto) 0.1 (0.0-0.7) K/uL Baso # (Auto) 0.1 (0.0-0.1) K/uL Nucleated RBC % 0.0 /100WBC Nucleated RBCs # 0 K/uL Sodium 140 (136-145) mmol/L Potassium 3.8 (3.5-5.1) mmol/L Chloride 101 (98-107) mmol/L Carbon Dioxide 24.1 (21.0-32.0) mmol/L BUN 14 (7.0-18.0) mg/dL Creatinine 0.7 (0.6-1.0) mg/dL Est Cr Clr Drug Dosing 98.71 mL/min Estimated GFR (MDRD) > 60.0 ml/min Glucose 122 H (74-106) mg/dL Calcium 8.5 (8.5-10.1) mg/dL Magnesium 1.7 L (1.8-2.4) mg/dL Total Bilirubin 0.3 (0.2-1.0) mg/dL AST 38 H (15-37) IU/L ALT 29 (14-63) IU/L Alkaline Phosphatase 83 (46-116) U/L Total Protein 7.1 (6.4-8.2) g/dL Albumin 3.6 (3.4-5.0) g/dL Globulin 3.5 (2.6-4.0) g/dL Albumin/Globulin Ratio 1.0 (0.9-1.6) Lipase 912 H (73-393) U/L HCG, Qual NEGATIVE (NEG) Urine Color Urine Appearance Urine pH (5.0-8.0) Ur Specific [place] (1.001-1.035) Urine Protein (NEGATIVE) mg/dL Urine Glucose (UA) (NEGATIVE) mg/dL Urine Ketones (NEGATIVE) mg/dL Urine Occult Blood (NEGATIVE) Urine Nitrite (NEGATIVE) Urine Bilirubin (NEGATIVE) Urine Urobilinogen (<2.0) EU/dL Ur Leukocyte Esterase (NEGATIVE) Urine RBC (0-2/HPF) Urine WBC (0-5/HPF) Ur Epithelial Cells (NONE-FEW) Amorphous Sediment (NEGATIVE) Urine Bacteria (NEGATIVE) Urine Mucus (NONE-MOD) 09/15/19 09/16/19 09/16/19 Range/Units 12:34 06:35 06:35 WBC 8.06 (4.0-11.0) K/uL RBC 3.81 L (4.30-5.90) M/uL Hgb 12.3 (12.0-16.0) g/dL Hct 37.2 (36.0-46.0) % MCV 97.6 (80.0-98.0) fL MCH 32.3 H (27.0-32.0) pg MCHC 33.1 (31.0-37.0) g/dL RDW Std Deviation 44.3 (28.0-62.0) fl RDW Coeff of [place] 13 (11.0-15.0) % Plt Count 211 (150-400) K/uL MPV 8.60 (7.40-12.00) fL Neut % (Auto) 71.1 (48.0-80.0) % Lymph % (Auto) 16.0 (16.0-40.0) % [place] % (Auto) 12.2 (0.0-15.0) % Eos % (Auto) 0.6 (0.0-7.0) % Baso % (Auto) 0.1 (0.0-1.5) % Neut # (Auto) 5.7 (1.4-5.7) K/uL Lymph # (Auto) 1.3 (0.6-2.4) K/uL [place] # (Auto) 1.0 H (0.0-0.8) K/uL Eos # (Auto) 0.1 (0.0-0.7) K/uL Baso # (Auto) 0.0 (0.0-0.1) K/uL Nucleated RBC % 0.0 /100WBC Nucleated RBCs # 0 K/uL Sodium 137 (136-145) mmol/L Potassium 3.6 (3.5-5.1) mmol/L Chloride 106 (98-107) mmol/L Carbon Dioxide 22.3 (21.0-32.0) mmol/L BUN 5 L (7.0-18.0) mg/dL Creatinine 0.6 (0.6-1.0) mg/dL Est Cr Clr Drug Dosing 115.16 mL/min Estimated GFR (MDRD) > 60.0 ml/min Glucose 111 H (74-106) mg/dL Calcium 7.1 L (8.5-10.1) mg/dL Magnesium 1.8 (1.8-2.4) mg/dL Total Bilirubin 0.9 (0.2-1.0) mg/dL AST 26 (15-37) IU/L ALT 22 (14-63) IU/L Alkaline Phosphatase 73 (46-116) U/L Total Protein 5.9 L (6.4-8.2) g/dL Albumin 2.9 L (3.4-5.0) g/dL Globulin 3.0 (2.6-4.0) g/dL Albumin/Globulin Ratio 1.0 (0.9-1.6) Lipase 2730 H (73-393) U/L HCG, Qual (NEG) Urine Color YELLOW Urine Appearance HAZY Urine pH 5.5 (5.0-8.0) Ur Specific [place] 1.020 (1.001-1.035) Urine Protein NEGATIVE (NEGATIVE) mg/dL Urine Glucose (UA) NEGATIVE (NEGATIVE) mg/dL Urine Ketones NEGATIVE (NEGATIVE) mg/dL Urine Occult Blood SMALL H (NEGATIVE) Urine Nitrite NEGATIVE (NEGATIVE) Urine Bilirubin NEGATIVE (NEGATIVE) Urine Urobilinogen 0.2 (<2.0) EU/dL Ur Leukocyte Esterase NEGATIVE (NEGATIVE) Urine RBC 0-3 (0-2/HPF) Urine WBC 1-3 (0-5/HPF) Ur Epithelial Cells MODERATE (NONE-FEW) Amorphous Sediment LIGHT (NEGATIVE) Urine Bacteria 1+ H (NEGATIVE) Urine Mucus LIGHT (NONE-MOD) Med Orders - Current: Current Medications Enoxaparin Sodium (Lovenox) 40 mg SUBCUT Q24H [facility] Last Admin: 09/15/19 13:46 Dose: 40 mg Folic Acid (Folic Acid) 1 mg IV DAILY [facility] Sodium Chloride (Normal Saline) 1,000 mls @ 150 mls/hr IV ASDIRECTED [facility] Last Admin: 09/16/19 09:14 Dose: 150 mls/hr Pantoprazole Sodium 40 mg/ (Sodium Chloride) 10 mls @ 300 mls/hr IV DAILY [facility] Last Admin: 09/16/19 08:12 Dose: 300 mls/hr Thiamine HCl 100 mg/ Sodium (Chloride) 101 mls @ 202 mls/hr IV DAILY [facility] Ketorolac Tromethamine (Toradol) 15 mg IVPUSH Q4H PRN PRN Reason: Pain Stop: 09/21/19 05:41 Last Admin: 09/16/19 08:13 Dose: 15 mg Labetalol HCl (Normodyne) 10 mg IVPUSH Q6H PRN; Protocol PRN Reason: Other Last Admin: 09/15/19 20:32 Dose: 10 mg Lorazepam (Ativan) 0 mg IVPUSH Q4H PRN; Protocol PRN Reason: Withdrawal Symptoms Morphine Sulfate (Morphine) 4 mg IVPUSH Q4H PRN PRN Reason: Pain (severe 7-10) Last Admin: 09/16/19 05:52 Dose: 4 mg Ondansetron HCl (Zofran) 4 mg IVPUSH Q4H PRN PRN Reason: Nausea Norgestimate-Ethinyl Estradiol [[place]- [place] 28 Tablet] 1 each PO DAILY [facility] Last Admin: 09/16/19 09:13 Dose: Not Given Discontinued Medications Hydromorphone HCl (Dilaudid) 1 mg IVPUSH ONETIME ONE Stop: 09/15/19 11:33 Last Admin: 09/15/19 11:40 Dose: 1 mg Hydromorphone HCl (Dilaudid) 1 mg IVPUSH Q4H PRN PRN Reason: Pain (severe 7-10) Last Admin: 09/16/19 02:32 Dose: 1 mg Sodium Chloride (Normal Saline) 1,000 mls @ 1,000 mls/hr IV .Bolus ONE Stop: 09/15/19 09:36 Last Admin: 09/15/19 09:38 Dose: 1,000 mls/hr Sodium Chloride (Normal Saline) 500 mls @ 500 mls/hr IV .BOLUS [facility] Last Admin: 09/15/19 11:39 Dose: 500 mls/hr Magnesium Sulfate 2 gm/ Premix 50 mls @ 50 mls/hr IV ONETIME ONE Stop: 09/15/19 12:44 Last Admin: 09/15/19 11:51 Dose: 50 mls/hr Multivitamins/Minerals 10 ml/Thiamine HCl 100 mg/ Folic Acid 1 mg/ Sodium Chloride 1,011.2 mls @ 200 mls/hr IV ONETIME ONE Stop: 09/15/19 17:44 Last Admin: 09/15/19 14:25 Dose: 200 mls/hr Iopamidol (Isovue Multipack-370 (76%)) 100 ml IVPUSH ONETIME ONE Stop: 09/15/19 11:02 Last Admin: 09/15/19 11:02 Dose: 100 ml Ketorolac Tromethamine (Toradol) 30 mg IV Q6H PRN PRN Reason: Pain (moderate 4-6) Last Admin: 09/16/19 00:26 Dose: 30 mg Magnesium Sulfate (Magnesium Sulfate 50%) 2 gm IV ONETIME ONE Stop: 09/15/19 11:37 Morphine Sulfate (Morphine) 4 mg IVPUSH ONETIME ONE Stop: 09/15/19 09:32 Last Admin: 09/15/19 09:38 Dose: 4 mg Morphine Sulfate (Morphine) 4 mg IVPUSH ONETIME ONE Stop: 09/15/19 11:19 Last Admin: 09/15/19 11:40 Dose: Not Given Morphine Sulfate (Morphine) 2 mg IVPUSH Q2H PRN PRN Reason: Pain (severe 7-10) Stop: 09/16/19 12:34 Ondansetron HCl (Zofran) 4 mg IVPUSH ONETIME ONE Stop: 09/15/19 09:32 Last Admin: 09/15/19 09:38 Dose: 4 mg - Exam General: Alert, Oriented, Cooperative, No Acute Distress Lungs: Clear to Auscultation, Normal Respiratory Effort Cardiovascular: Regular Rate, Regular Rhythm GI/Abdominal Exam: Normal Bowel Sounds, Soft, No Distention, Other (mild ttp). No: Guarding Extremities: Normal Inspection, No Pedal Edema Sepsis Event Note - Evaluation Sepsis Screening Result: No Definite Risk - Focused Exam Vital Signs: Vital Signs Temp Pulse Resp BP Pulse Ox 09/16/19 09:00 98.0 F 80 17 164/107 H 99 09/16/19 05:00 97.2 F 98 20 146/94 H 97 09/16/19 01:11 99.3 F 103 H 16 146/102 H 97 Date Exam was Performed: 09/16/19 Time Exam was Performed: 12:38 - Problem List Review Problem List Initiated/Reviewed/Updated: Yes - My Orders Last 24 Hours: My Active Orders 09/15/19 12:32 Oxygen Therapy [RC] PRN Up ad [place] [RC] ASDIRECTED VTE/DVT Education [RC] PER UNIT ROUTINE Vital Signs [RC] Q4H Ondansetron [Zofran] 4 mg IVPUSH Q4H PRN Resuscitation Status Routine 09/15/19 12:43 CIWAA Assessment [RC] Q4H LORazepam [Ativan] See Protocol IVPUSH Q4H PRN 09/15/19 12:45 Enoxaparin [Lovenox] 40 mg SUBCUT Q24H Sodium Chloride 0.9% [Normal Saline] 1,000 ml IV ASDIRECTED 09/15/19 15:15 Pantoprazole [ProTONIX IV] 40 mg Sodium Chloride 0.9% [Normal Saline] 10 ml IV DAILY 09/15/19 19:09 Labetalol [Normodyne] 10 mg IVPUSH Q6H PRN 09/15/19 Lunch Nothing per Oral Now Diet [DIET] 09/16/19 09:00 Patient's Own Medication [Ptom] 1 each PO DAILY 09/16/19 21:00 Folic Acid 1 mg IV DAILY Thiamine [Vitamin B-1] 100 mg Sodium Chloride 0.9% [Normal Saline] 100 ml IV DAILY 09/17/19 05:11 CBC WITH AUTO DIFF [HEME] AM COMPREHENSIVE METABOLIC PN,CMP [CHEM] AM LIPASE [CHEM] AM - Plan Plan:: Assessment and Plan: 1. Acute on chronic pancreatitis: - NPO and will continue IV NS @ 150 cc/hr. For pain, IV toradol 30 mg q6 prn and will change IV Dilaudid to 0.5 mg q2 prn severe pain for now. IV PPI and Zofran prn nausea. 2. Alcohol abuse: - Ativan per [facility] protocol. Continue IV thiamine and folic acid. Counselled patient on alcohol cessation. 3. Hypomagnesemia, resolved. 4. DVT prophylaxis: lovenox.
[2019-09-16] MEDS ORDERED: Calcium Gluconate 10% 1 GM/10 ML SDV IVPUSH ONE (11:20)
[2019-09-16] MEDS: Enoxaparin 40 MG/0.4 ML Syringe SUBCUT SCH (12:21)
[2019-09-16] MEDS: HYDROmorphone 2 MG/ML Syringe IVPUSH PRN ×5 (14:05→22:41)
[2019-09-16] MEDS: Labetalol 100 MG/20 ML MDV IVPUSH PRN (20:06)
[2019-09-16] MEDS: Folic Acid 50 MG/10 ML MDV IV SCH (20:09)
[2019-09-16] MEDS: Thiamine 100 MG in Sodium Chloride 0.9% 100 ML IV SCH (20:34)
[2019-09-17] MEDS: HYDROmorphone 2 MG/ML Syringe IVPUSH PRN ×7 (00:30→13:04)
[2019-09-17] MEDS: Sodium Chloride 0.9% 1,000 ML IV SCH ×2 (05:34→12:38)
[2019-09-17 06:48] LABS: BLOOD UREA NITROGEN,BUN 3 mg/dL (7.0-18.0); CARBON DIOXIDE,CO2 25.9 mmol/L (21.0-32.0); CHLORIDE,CL 101 mmol/L (98-107); GLUCOSE RANDOM 92 mg/dL (74-106); LIPASE 1169 U/L (73-393); POTASSIUM,K 3.5 mmol/L (3.5-5.1); SODIUM,NA 135 mmol/L (136-145)
[2019-09-17] MEDS: Pantoprazole 40 MG in Sodium Chloride 0.9% 10 ML IV SCH (09:05)
[2019-09-17] MEDS: Folic Acid 50 MG/10 ML MDV IV SCH (09:08)
[2019-09-17] MEDS: NORGESTIMATE ETHINYL ESTRADIOL PO SCH (09:08)
[2019-09-17] MEDS: Thiamine 100 MG in Sodium Chloride 0.9% 100 ML IV SCH (09:12)
--- NOTE | 2019-09-17 12:07 | PCM.PN ---
- Patient Data Vitals - Most Recent: Last Vital Signs Temp 36.8 C 09/17/19 07:39 Pulse 99 09/17/19 07:39 Resp 17 09/17/19 07:39 BP 143/88 H 09/17/19 07:39 Pulse Ox 98 09/17/19 07:39 Weight - Most Recent: 70.307 kg I&O - Last 24 Hours: Intake & Output 09/16/19 09/17/19 09/17/19 22:59 06:59 14:59 Intake Total 1698 Output Total 900 Balance 798 Lab Results Last 24 Hours: Laboratory Results - last 24 hr 09/17/19 09/17/19 Range/Units 06:05 06:05 WBC 11.18 H (4.0-11.0) K/uL RBC 3.69 L (4.30-5.90) M/uL Hgb 11.9 L (12.0-16.0) g/dL Hct 36.2 (36.0-46.0) % MCV 98.1 H (80.0-98.0) fL MCH 32.2 H (27.0-32.0) pg MCHC 32.9 (31.0-37.0) g/dL RDW Std Deviation 44.3 (28.0-62.0) fl RDW Coeff of [place] 12 (11.0-15.0) % Plt Count 178 (150-400) K/uL MPV 8.80 (7.40-12.00) fL Neut % (Auto) 79.5 (48.0-80.0) % Lymph % (Auto) 9.9 L (16.0-40.0) % [place] % (Auto) 10.1 (0.0-15.0) % Eos % (Auto) 0.3 (0.0-7.0) % Baso % (Auto) 0.2 (0.0-1.5) % Neut # (Auto) 8.9 H (1.4-5.7) K/uL Lymph # (Auto) 1.1 (0.6-2.4) K/uL [place] # (Auto) 1.1 H (0.0-0.8) K/uL Eos # (Auto) 0.0 (0.0-0.7) K/uL Baso # (Auto) 0.0 (0.0-0.1) K/uL Nucleated RBC % 0.0 /100WBC Nucleated RBCs # 0 K/uL Sodium 135 L (136-145) mmol/L Potassium 3.5 (3.5-5.1) mmol/L Chloride 101 (98-107) mmol/L Carbon Dioxide 25.9 (21.0-32.0) mmol/L BUN 3 L (7.0-18.0) mg/dL Creatinine 0.5 L (0.6-1.0) mg/dL Est Cr Clr Drug Dosing 138.19 mL/min Estimated GFR (MDRD) > 60.0 ml/min Glucose 92 (74-106) mg/dL Calcium 7.0 L (8.5-10.1) mg/dL Total Bilirubin 0.6 (0.2-1.0) mg/dL AST 23 (15-37) IU/L ALT 21 (14-63) IU/L Alkaline Phosphatase 65 (46-116) U/L Total Protein 6.1 L (6.4-8.2) g/dL Albumin 2.8 L (3.4-5.0) g/dL Globulin 3.3 (2.6-4.0) g/dL Albumin/Globulin Ratio 0.9 (0.9-1.6) Lipase 1169 H (73-393) U/L Med Orders - Current: Current Medications Enoxaparin Sodium (Lovenox) 40 mg SUBCUT Q24H [facility] Last Admin: 09/16/19 12:21 Dose: 40 mg Folic Acid (Folic Acid) 1 mg IV DAILY [facility] Last Admin: 09/17/19 09:08 Dose: 1 mg Hydromorphone HCl (Dilaudid) 0.5 mg IVPUSH Q2H PRN PRN Reason: Pain Last Admin: 09/17/19 11:01 Dose: 0.5 mg Sodium Chloride (Normal Saline) 1,000 mls @ 150 mls/hr IV ASDIRECTED [facility] Last Admin: 09/17/19 05:34 Dose: 150 mls/hr Pantoprazole Sodium 40 mg/ (Sodium Chloride) 10 mls @ 300 mls/hr IV DAILY [facility] Last Admin: 09/17/19 09:05 Dose: 300 mls/hr Thiamine HCl 100 mg/ Sodium (Chloride) 101 mls @ 202 mls/hr IV DAILY [facility] Last Admin: 09/17/19 09:12 Dose: 202 mls/hr Ketorolac Tromethamine (Toradol) 15 mg IVPUSH Q4H PRN PRN Reason: Pain Stop: 09/21/19 05:41 Last Admin: 09/16/19 11:58 Dose: 15 mg Labetalol HCl (Normodyne) 10 mg IVPUSH Q6H PRN; Protocol PRN Reason: Other Last Admin: 09/16/19 20:06 Dose: 10 mg Lorazepam (Ativan) 0 mg IVPUSH Q4H PRN; Protocol PRN Reason: Withdrawal Symptoms Ondansetron HCl (Zofran) 4 mg IVPUSH Q4H PRN PRN Reason: Nausea Last Admin: 09/16/19 20:30 Dose: 4 mg Norgestimate-Ethinyl Estradiol [[place]- [place] 28 Tablet] 1 each PO DAILY [facility] Last Admin: 09/17/19 09:08 Dose: Not Given Discontinued Medications Calcium Gluconate (Calcium Gluconate) 1 gm IVPUSH ONETIME ONE Stop: 09/16/19 11:21 Last Admin: 09/16/19 12:03 Dose: 1 gm Hydromorphone HCl (Dilaudid) 1 mg IVPUSH ONETIME ONE Stop: 09/15/19 11:33 Last Admin: 09/15/19 11:40 Dose: 1 mg Hydromorphone HCl (Dilaudid) 1 mg IVPUSH Q4H PRN PRN Reason: Pain (severe 7-10) Last Admin: 09/16/19 02:32 Dose: 1 mg Sodium Chloride (Normal Saline) 1,000 mls @ 1,000 mls/hr IV .Bolus ONE Stop: 09/15/19 09:36 Last Admin: 09/15/19 09:38 Dose: 1,000 mls/hr Sodium Chloride (Normal Saline) 500 mls @ 500 mls/hr IV .BOLUS [facility] Last Admin: 09/15/19 11:39 Dose: 500 mls/hr Magnesium Sulfate 2 gm/ Premix 50 mls @ 50 mls/hr IV ONETIME ONE Stop: 09/15/19 12:44 Last Admin: 09/15/19 11:51 Dose: 50 mls/hr Multivitamins/Minerals 10 ml/Thiamine HCl 100 mg/ Folic Acid 1 mg/ Sodium Chloride 1,011.2 mls @ 200 mls/hr IV ONETIME ONE Stop: 09/15/19 17:44 Last Admin: 09/15/19 14:25 Dose: 200 mls/hr Iopamidol (Isovue Multipack-370 (76%)) 100 ml IVPUSH ONETIME ONE Stop: 09/15/19 11:02 Last Admin: 09/15/19 11:02 Dose: 100 ml Ketorolac Tromethamine (Toradol) 30 mg IV Q6H PRN PRN Reason: Pain (moderate 4-6) Last Admin: 09/16/19 00:26 Dose: 30 mg Magnesium Sulfate (Magnesium Sulfate 50%) 2 gm IV ONETIME ONE Stop: 09/15/19 11:37 Morphine Sulfate (Morphine) 4 mg IVPUSH ONETIME ONE Stop: 09/15/19 09:32 Last Admin: 09/15/19 09:38 Dose: 4 mg Morphine Sulfate (Morphine) 4 mg IVPUSH ONETIME ONE Stop: 09/15/19 11:19 Last Admin: 09/15/19 11:40 Dose: Not Given Morphine Sulfate (Morphine) 2 mg IVPUSH Q2H PRN PRN Reason: Pain (severe 7-10) Stop: 09/16/19 12:34 Morphine Sulfate (Morphine) 4 mg IVPUSH Q4H PRN PRN Reason: Pain (severe 7-10) Last Admin: 09/16/19 10:50 Dose: 4 mg Ondansetron HCl (Zofran) 4 mg IVPUSH ONETIME ONE Stop: 09/15/19 09:32 Last Admin: 09/15/19 09:38 Dose: 4 mg Sepsis Event Note - Evaluation Sepsis Screening Result: No Definite Risk - Focused Exam Vital Signs: Vital Signs Temp Pulse Resp BP Pulse Ox 09/17/19 07:39 36.8 C 99 17 143/88 H 98 09/17/19 04:00 37.3 C 107 H 18 168/99 H 95 Date Exam was Performed: 09/17/19 Time Exam was Performed: 12:07 - My Orders Last 24 Hours: My Active Orders 09/17/19 Lunch Soft Diet [DIET] - Plan Plan:: Assessment and Plan: 1. Acute on chronic pancreatitis: - NPO and will continue IV NS @ 150 cc/hr. For pain, IV toradol 30 mg q6 prn and will change IV Dilaudid to 0.5 mg q2 prn severe pain for now. IV PPI and Zofran prn nausea. 2. Alcohol abuse: - Ativan per [facility]II[facility] protocol. Continue IV thiamine and folic acid. Counselled patient on alcohol cessation. 3. Hypomagnesemia, resolved. 4. DVT prophylaxis: lovenox.
[2019-09-17] MEDS: Enoxaparin 40 MG/0.4 ML Syringe SUBCUT SCH (12:39)
--- NOTE | 2019-09-17 14:21 | PCM.DCSUM1 ---
Discharge Summary - Discharge Data Discharge Disposition: Home, Self-Care 01 Condition: Stable - Referral to Home Health Primary Care Physician: PCP None - Discharge Plan *PRESCRIPTION DRUG MONITORING PROGRAM REVIEWED*: Yes *COPY OF PRESCRIPTION DRUG MONITORING REPORT IN PATIENT RENÉE: Yes Home Medications: Home Meds Norgestimate-Ethinyl Estradiol [[place]-Linyah 28 Tablet] 1 each PO DAILY 05/17/19 [History] Acetaminophen/oxyCODONE [Percocet 325-5 MG] 1 tab PO BID 09/15/19 [History] Forms: ED Department Discharge Referrals: PCP,None [Primary Care Provider] - - Patient Data Vitals - Most Recent: Last Vital Signs Temp 36.9 C 09/17/19 11:00 Pulse 70 09/17/19 11:00 Resp 18 09/17/19 11:00 BP 154/107 H 09/17/19 11:00 Pulse Ox 95 09/17/19 11:00 Weight - Most Recent: 70.307 kg I&O - Last 24 hours: Intake & Output 09/16/19 09/17/19 09/17/19 22:59 06:59 14:59 Intake Total 1698 Output Total 900 Balance 798 Lab Results - Last 24 hrs: Laboratory Results - last 24 hr 09/17/19 09/17/19 Range/Units 06:05 06:05 WBC 11.18 H (4.0-11.0) K/uL RBC 3.69 L (4.30-5.90) M/uL Hgb 11.9 L (12.0-16.0) g/dL Hct 36.2 (36.0-46.0) % MCV 98.1 H (80.0-98.0) fL MCH 32.2 H (27.0-32.0) pg MCHC 32.9 (31.0-37.0) g/dL RDW Std Deviation 44.3 (28.0-62.0) fl RDW Coeff of [place] 12 (11.0-15.0) % Plt Count 178 (150-400) K/uL MPV 8.80 (7.40-12.00) fL Neut % (Auto) 79.5 (48.0-80.0) % Lymph % (Auto) 9.9 L (16.0-40.0) % [place] % (Auto) 10.1 (0.0-15.0) % Eos % (Auto) 0.3 (0.0-7.0) % Baso % (Auto) 0.2 (0.0-1.5) % Neut # (Auto) 8.9 H (1.4-5.7) K/uL Lymph # (Auto) 1.1 (0.6-2.4) K/uL [place] # (Auto) 1.1 H (0.0-0.8) K/uL Eos # (Auto) 0.0 (0.0-0.7) K/uL Baso # (Auto) 0.0 (0.0-0.1) K/uL Nucleated RBC % 0.0 /100WBC Nucleated RBCs # 0 K/uL Sodium 135 L (136-145) mmol/L Potassium 3.5 (3.5-5.1) mmol/L Chloride 101 (98-107) mmol/L Carbon Dioxide 25.9 (21.0-32.0) mmol/L BUN 3 L (7.0-18.0) mg/dL Creatinine 0.5 L (0.6-1.0) mg/dL Est Cr Clr Drug Dosing 138.19 mL/min Estimated GFR (MDRD) > 60.0 ml/min Glucose 92 (74-106) mg/dL Calcium 7.0 L (8.5-10.1) mg/dL Total Bilirubin 0.6 (0.2-1.0) mg/dL AST 23 (15-37) IU/L ALT 21 (14-63) IU/L Alkaline Phosphatase 65 (46-116) U/L Total Protein 6.1 L (6.4-8.2) g/dL Albumin 2.8 L (3.4-5.0) g/dL Globulin 3.3 (2.6-4.0) g/dL Albumin/Globulin Ratio 0.9 (0.9-1.6) Lipase 1169 H (73-393) U/L Med Orders - Current: Current Medications Enoxaparin Sodium (Lovenox) 40 mg SUBCUT Q24H [facility] Last Admin: 09/17/19 12:39 Dose: 40 mg Folic Acid (Folic Acid) 1 mg IV DAILY [facility] Last Admin: 09/17/19 09:08 Dose: 1 mg Hydromorphone HCl (Dilaudid) 0.5 mg IVPUSH Q2H PRN PRN Reason: Pain Last Admin: 09/17/19 13:04 Dose: 0.5 mg Sodium Chloride (Normal Saline) 1,000 mls @ 150 mls/hr IV ASDIRECTED [facility] Last Admin: 09/17/19 12:38 Dose: 150 mls/hr Pantoprazole Sodium 40 mg/ (Sodium Chloride) 10 mls @ 300 mls/hr IV DAILY [facility] Last Admin: 09/17/19 09:05 Dose: 300 mls/hr Thiamine HCl 100 mg/ Sodium (Chloride) 101 mls @ 202 mls/hr IV DAILY [facility] Last Admin: 09/17/19 09:12 Dose: 202 mls/hr Ketorolac Tromethamine (Toradol) 15 mg IVPUSH Q4H PRN PRN Reason: Pain Stop: 09/21/19 05:41 Last Admin: 09/16/19 11:58 Dose: 15 mg Labetalol HCl (Normodyne) 10 mg IVPUSH Q6H PRN; Protocol PRN Reason: Other Last Admin: 09/16/19 20:06 Dose: 10 mg Lorazepam (Ativan) 0 mg IVPUSH Q4H PRN; Protocol PRN Reason: Withdrawal Symptoms Ondansetron HCl (Zofran) 4 mg IVPUSH Q4H PRN PRN Reason: Nausea Last Admin: 09/16/19 20:30 Dose: 4 mg Norgestimate-Ethinyl Estradiol [[place]- [place]iny[place] 28 Tablet] 1 each PO DAILY [facility] Last Admin: 09/17/19 09:08 Dose: Not Given Discontinued Medications Calcium Gluconate (Calcium Gluconate) 1 gm IVPUSH ONETIME ONE Stop: 09/16/19 11:21 Last Admin: 09/16/19 12:03 Dose: 1 gm Hydromorphone HCl (Dilaudid) 1 mg IVPUSH ONETIME ONE Stop: 09/15/19 11:33 Last Admin: 09/15/19 11:40 Dose: 1 mg Hydromorphone HCl (Dilaudid) 1 mg IVPUSH Q4H PRN PRN Reason: Pain (severe 7-10) Last Admin: 09/16/19 02:32 Dose: 1 mg Sodium Chloride (Normal Saline) 1,000 mls @ 1,000 mls/hr IV .Bolus ONE Stop: 09/15/19 09:36 Last Admin: 09/15/19 09:38 Dose: 1,000 mls/hr Sodium Chloride (Normal Saline) 500 mls @ 500 mls/hr IV .BOLUS [facility] Last Admin: 09/15/19 11:39 Dose: 500 mls/hr Magnesium Sulfate 2 gm/ Premix 50 mls @ 50 mls/hr IV ONETIME ONE Stop: 09/15/19 12:44 Last Admin: 09/15/19 11:51 Dose: 50 mls/hr Multivitamins/Minerals 10 ml/Thiamine HCl 100 mg/ Folic Acid 1 mg/ Sodium Chloride 1,011.2 mls @ 200 mls/hr IV ONETIME ONE Stop: 09/15/19 17:44 Last Admin: 09/15/19 14:25 Dose: 200 mls/hr Iopamidol (Isovue Multipack-370 (76%)) 100 ml IVPUSH ONETIME ONE Stop: 09/15/19 11:02 Last Admin: 09/15/19 11:02 Dose: 100 ml Ketorolac Tromethamine (Toradol) 30 mg IV Q6H PRN PRN Reason: Pain (moderate 4-6) Last Admin: 09/16/19 00:26 Dose: 30 mg Magnesium Sulfate (Magnesium Sulfate 50%) 2 gm IV ONETIME ONE Stop: 09/15/19 11:37 Morphine Sulfate (Morphine) 4 mg IVPUSH ONETIME ONE Stop: 09/15/19 09:32 Last Admin: 09/15/19 09:38 Dose: 4 mg Morphine Sulfate (Morphine) 4 mg IVPUSH ONETIME ONE Stop: 09/15/19 11:19 Last Admin: 09/15/19 11:40 Dose: Not Given Morphine Sulfate (Morphine) 2 mg IVPUSH Q2H PRN PRN Reason: Pain (severe 7-10) Stop: 09/16/19 12:34 Morphine Sulfate (Morphine) 4 mg IVPUSH Q4H PRN PRN Reason: Pain (severe 7-10) Last Admin: 09/16/19 10:50 Dose: 4 mg Ondansetron HCl (Zofran) 4 mg IVPUSH ONETIME ONE Stop: 09/15/19 09:32 Last Admin: 09/15/19 09:38 Dose: 4 mg
== END 2019-09-17 16:00 | disposition home or self-care (01) ==
LOC: MW.ED 08:06 → MW.MS 12:24
PROVIDERS: ADMIT Student in an Organized Health Care Education/Training Program; ATTEND Student in an Organized Health Care Education/Training Program
DX: K85.20 Alcohol induced acute pancreatitis without necrosis or infection (principal); K86.0 Alcohol-induced chronic pancreatitis; F10.188 Alcohol abuse with other alcohol-induced disorder; E83.42 Hypomagnesemia; Z79.899 Other long term (current) drug therapy; Z71.41 Alcohol abuse counseling and surveillance of alcoholic
CPT/HCPCS: 36415; 74177; 80053; 81001; 83690; 83735; 84703; 85025; 96361; 96365; 96375; 99285; C9113; J0610; J1170; J1650; J1885; J2270; J2405; J3411; J3475; J3490; J7030; J7040; J7050; Q9967

== ENCOUNTER 2019-09-20 09:44 | Observation (INO) | payer OTHER ==
[2019-09-20] MEDS ORDERED: Sodium Chloride 0.9% 1,000 ML IV ONE (10:07)
[2019-09-20] MEDS ORDERED: Ketorolac 30 MG/ML SDV IVPUSH ONE (10:07)
[2019-09-20 10:49] LABS: BLOOD UREA NITROGEN,BUN 7 mg/dL (7.0-18.0); CARBON DIOXIDE,CO2 27.2 mmol/L (21.0-32.0); CHLORIDE,CL 104 mmol/L (98-107); GLUCOSE RANDOM 123 mg/dL (74-106); LIPASE 775 U/L (73-393); POTASSIUM,K 3.2 mmol/L (3.5-5.1); SODIUM,NA 141 mmol/L (136-145)
[2019-09-20] MEDS ORDERED: Morphine 10 MG/ML Syringe IVPUSH ONE ×2 (10:55→13:25)
[2019-09-20] MEDS ORDERED: Iopamidol 755 MG/ML 500 ML Multipack Bottle IVPUSH STA (11:45)
--- NOTE | 2019-09-20 12:30 | CT ---
CT abdomen and pelvis Technique: Multiple axial sections were obtained from above the dome of the diaphragm inferiorly through the pubic symphysis. Intravenous contrast was utilized. No oral contrast has been given. Comparison: Previous CT abdomen and pelvis study of 09/15/19 and 05/16/19. Findings: Visualized lung bases show small bilateral pleural effusions. These represent an interval change from previous exams. Liver contains a low-density lesion close to the ligamentum teres fissure which appears stable from previous CT exams and most likely represents a stable hemangioma. No additional abnormality is seen within the liver. Cyst and calcifications are noted within the pancreatic head which has slightly changed from previous studies. Cyst most likely represent small pseudocyst as well as change from chronic pancreatitis. Tail of pancreas appears masslike. There is low density within the pancreatic tail which is an interval change from previous exam. Increased inflammatory change is seen around the pancreatic tail Spleen appears within normal limits. Adrenal glands show no nodule. Kidneys show symmetric contrast enhancement. No hydronephrosis or mass is seen. Aorta shows no aneurysm. No retroperitoneal adenopathy or mesenteric abnormalities are seen. No pelvic mass or adenopathy is noted. No free fluid is seen. No other inflammatory change is identified. Appendix not visualized with certainty. Bone window settings were reviewed which appear within normal limits for the patient's age. Impression: 1. Abnormal pancreas as described above. Findings within the pancreatic head are felt to represent chronic pancreatitis. Findings within the pancreatic tail have changed from previous CT exams and are felt compatible with worsening acute pancreatitis. 2. Small bilateral pleural effusions which are not interval change. 3. No additional abnormality is appreciated. Diagnostic code #3 This report was dictated in MDT
[2019-09-20] MEDS ORDERED: LORazepam 2 MG/ML SDV IV PRN (13:57)
[2019-09-20] MEDS ORDERED: Ondansetron 4 MG/2 ML SDV IVPUSH PRN (13:57)
[2019-09-20] MEDS: Lactated Ringers 1,000 ML IV SCH ×2 (14:11→23:29)
[2019-09-20] MEDS: Thiamine 200 MG/2 ML MDV IVPUSH SCH (14:18)
[2019-09-20] MEDS: Enoxaparin 40 MG/0.4 ML Syringe SUBCUT SCH (14:18)
[2019-09-20] MEDS: Folic Acid 50 MG/10 ML MDV SUBCUT SCH (14:20)
[2019-09-20] MEDS ORDERED: Sodium Chloride 0.9% with KCl 1,000 ML IV ONE (14:48)
--- NOTE | 2019-09-20 14:50 | PCM.HP.2 ---
H&P History of Present Illness - General Date of Service: 09/20/19 Admit Problem/Dx: Admission Diagnosis/Problem Admission Diagnosis/Problem Acute pancreatitis Source of Information: Patient History Limitations: Reports: No Limitations - History of Present Illness Initial Comments - Free Text/Narative: This 34 year old female with pmh of chronic pancreatitis due to alcohol, hx of pancreatic pseudocyst and multiple admissions for acute on chronic pancreatitis presented today with concerns of worsening abdominal along with nausea and inability to keep fluids down at home. She was discharged 3 days ago, she denies any alcohol use since discharge. States the pain gradually increased at home along with the nausea and poor appetite. She reports not eating much at home since discharge either. She denies fevers or chills, no cough or chest pain. No dyspnea. No BM for 5 days. No bleeding. In the ED CBC stable, hypokalemia noted, 3.2, no transaminitis and no renal dysfucntion. Lipase 775 CT was obtained which shows interval worsening inflammatory changes to pancreas more specifically pancreatic tail which appears "masslike". Given IVFs and Morphine for pain in ED. Admitted for acute on chronic pancreatitis. Dr Harper, PCP Upper Abdomen Pain Score (Numeric/FACES): 8 - Related Data Allergies/Adverse Reactions: Allergies Allergy/AdvReac Type Severity Reaction Status Date / Time No Known Allergies Allergy Verified 09/20/19 09:57 Home Medications: Home Meds Norgestimate-Ethinyl Estradiol [[place]-Linyah 28 Tablet] 1 each PO DAILY 05/17/19 [History] Acetaminophen/oxyCODONE [Percocet 325-5 MG] 1 tab PO BID 09/15/19 [History] [place]/Vit B12/Folic Acid/Vit B6 [Folic Acid-Vit B6-Vit B12 Tab] 1 each PO DAILY # 30 tablet 09/17/19 [Rx] Ketorolac [Toradol] 10 mg PO TID PRN #10 tab 09/17/19 [Rx] Past Medical History - Past Health History Medical/Surgical History: Denies Medical/Surgical History HEENT History: Reports: None Cardiovascular History: Reports: Blood Clots/VTE/DVT Other Cardiovascular History: blood clot on the liver Respiratory History: Reports: None Gastrointestinal History: Reports: Pancreatitis Genitourinary History: Reports: None DIRECTOR CARD History: Reports: None Musculoskeletal History: Reports: None Neurological History: Reports: None Psychiatric History: Reports: Addiction Other Psychiatric History: ETOH Endocrine/Metabolic History: Reports: None Hematologic History: Reports: None Immunologic History: Reports: None Oncologic (Cancer) History: Reports: None Dermatologic History: Reports: None - Infectious Disease History Infectious Disease History: Reports: None - Past Surgical History Head Surgeries/Procedures: Reports: None HEENT Surgical History: Reports: None Cardiovascular Surgical History: Reports: None Respiratory Surgical History: Reports: None GI Surgical History: Reports: EGD Female Surgical History: Reports: None Endocrine Surgical History: Reports: None Neurological Surgical History: Reports: None Musculoskeletal Surgical History: Reports: None Oncologic Surgical History: Reports: None Dermatological Surgical History: Reports: None Social & Family History - Family History Family Medical History: Noncontributory Cardiac: Reports: MS - Tobacco Use Smoking Status *Q: Never Smoker Second Hand Smoke Exposure: No - Caffeine Use Caffeine Use: Reports: Soda Other Caffeine Use: 2 Diet Cokes a day - Alcohol Use Days Per Week of Alcohol Use: 5 Number of Drinks Per Day: 5 Total Drinks Per Week: 25 Date of Last Drink: 09/13/19 Time of Last Drink: 05:00 - Recreational Drug Use Recreational Drug Use: No - Living Situation & Occupation Living situation: Reports: Single Occupation: Unemployed H&P Review of Systems - Review of Systems: Review Of Systems: See Below General: Reports: Malaise, Weakness. Denies: Fever, Chills HEENT: Reports: No Symptoms. Denies: Headaches, Sinus Congestion, Sore Throat Pulmonary: Reports: No Symptoms. Denies: Shortness of Breath, Cough, Sputum Cardiovascular: Reports: No Symptoms. Denies: Chest Pain Gastrointestinal: Reports: Abdominal Pain (epigastric and RUQ), Constipation, Decreased Appetite, Flatus, Nausea, Vomiting. Denies: Black Stool, Bloody Stool , Distension Musculoskeletal: Reports: No Symptoms. Denies: Neck Pain, Muscle Pain Skin: Reports: No Symptoms Neurological: Reports: No Symptoms Hematologic/Lymphatic: Reports: No Symptoms Immunologic: Reports: No Symptoms Exam - Exam Exam: See Below - Vital Signs Vital Signs: Last Vital Signs Temp 97.3 F 09/20/19 13:35 Pulse 85 09/20/19 13:35 Resp 18 09/20/19 13:35 BP 149/106 H 09/20/19 13:35 Pulse Ox 96 09/20/19 13:35 Weight: 72.9 kg - Exam General: Alert, Oriented, Cooperative HEENT: Conjunctiva Clear, Mucosa Moist & [place], Posterior Pharynx Clear Lungs: Clear to Auscultation, Normal Respiratory Effort Cardiovascular: Regular Rate, Regular Rhythm GI/Abdominal Exam: Normal Bowel Sounds, Soft, No Distention, No Mass, Tender ( epigastric and RUQ) Extremities: Normal Inspection, Normal Range of Motion, Non-Tender, No Pedal Edema Neuro Extensive - Mental Status: Alert, Oriented x3 Neuro Extensive - Motor, Sensory, Reflexes: CN II-XII Intact, Normal Gait Psychiatric: Alert, Normal Affect, Normal Mood - Patient Data Lab Results Last 24 hrs: Laboratory Results - last 24 hr 09/20/19 09/20/19 09/20/19 Range/Units 10:19 10:19 10:19 WBC 7.47 (4.0-11.0) K/uL RBC 3.69 L (4.30-5.90) M/uL Hgb 11.8 L (12.0-16.0) g/dL Hct 35.5 L (36.0-46.0) % MCV 96.2 (80.0-98.0) fL MCH 32.0 (27.0-32.0) pg MCHC 33.2 (31.0-37.0) g/dL RDW Std Deviation 43.2 (28.0-62.0) fl RDW Coeff of [place] 12 (11.0-15.0) % Plt Count 286 (150-400) K/uL MPV 8.50 (7.40-12.00) fL Neut % (Auto) 54.2 (48.0-80.0) % Lymph % (Auto) 31.9 (16.0-40.0) % [place] % (Auto) 12.3 (0.0-15.0) % Eos % (Auto) 1.2 (0.0-7.0) % Baso % (Auto) 0.4 (0.0-1.5) % Neut # (Auto) 4.1 (1.4-5.7) K/uL Lymph # (Auto) 2.4 (0.6-2.4) K/uL [place] # (Auto) 0.9 H (0.0-0.8) K/uL Eos # (Auto) 0.1 (0.0-0.7) K/uL Baso # (Auto) 0.0 (0.0-0.1) K/uL Nucleated RBC % 0.0 /100WBC Nucleated RBCs # 0 K/uL Sodium 141 (136-145) mmol/L Potassium 3.2 L (3.5-5.1) mmol/L Chloride 104 (98-107) mmol/L Carbon Dioxide 27.2 (21.0-32.0) mmol/L BUN 7 (7.0-18.0) mg/dL Creatinine 0.6 (0.6-1.0) mg/dL Est Cr Clr Drug Dosing 115.16 mL/min Estimated GFR (MDRD) > 60.0 ml/min Glucose 123 H (74-106) mg/dL Calcium 9.1 (8.5-10.1) mg/dL Magnesium 1.9 (1.8-2.4) mg/dL Total Bilirubin 0.3 (0.2-1.0) mg/dL AST 22 (15-37) IU/L ALT 21 (14-63) IU/L Alkaline Phosphatase 65 (46-116) U/L Total Protein 7.0 (6.4-8.2) g/dL Albumin 3.2 L (3.4-5.0) g/dL Globulin 3.8 (2.6-4.0) g/dL Albumin/Globulin Ratio 0.8 L (0.9-1.6) Lipase 775 H (73-393) U/L Result Diagrams: 09/20/19 10:19 09/20/19 10:19 Sepsis Event Note - Evaluation Sepsis Screening Result: No Definite Risk - Focused Exam Vital Signs: Vital Signs Temp Pulse Resp BP Pulse Ox 09/20/19 13:35 97.3 F 85 18 149/106 H 96 09/20/19 11:50 97.4 F 79 177/111 H 99 09/20/19 11:12 81 16 181/121 H 99 09/20/19 10:00 96.8 F L 94 18 172/116 H 96 Date Exam was Performed: 09/20/19 Time Exam was Performed: 15:07 - Problem List (1) Acute on chronic pancreatitis SNOMED Code(s): 177030521 ICD Code: K85.90 - ACUTE PANCREATITIS WITHOUT NECROSIS OR INFECTION, UNSP; K86.1 - OTHER CHRONIC PANCREATITIS Status: Acute Current Visit: No (2) Alcohol abuse SNOMED Code(s): 79435674 ICD Code: F10.10 - ALCOHOL ABUSE, UNCOMPLICATED Status: Chronic Current Visit: No (3) Pancreatic cyst SNOMED Code(s): 21770761 ICD Code: K86.2 - CYST OF PANCREAS Status: Chronic Current Visit: No Problem List Initiated/Reviewed/Updated: Yes Orders Last 24hrs: Active Orders 24 hr Category Date Time Status Admission Status [Patient Status] [ADT] Stat ADT 09/20/19 13:13 Active Intake and Output [RC] QSHIFT Care 09/20/19 13:57 Active May Shower [RC] ASDIRECTED Care 09/20/19 13:57 Active Oxygen Therapy [RC] PRN Care 09/20/19 13:57 Active Up to Chair [RC] ASDIRECTED Care 09/20/19 13:57 Active VTE/DVT Education [RC] PER UNIT ROUTINE Care 09/20/19 13:57 Active Vital Signs [RC] Q4H Care 09/20/19 13:57 Active Nothing Per Oral Diet [DIET] Diet 09/20/19 Dinner Active Enoxaparin [Lovenox] Med 09/20/19 14:00 Active 40 mg SUBCUT Q24H Folic Acid Med 09/20/19 14:03 Active 1 mg SUBCUT DAILY HYDROmorphone [Dilaudid] Med 09/20/19 14:02 Active 0.5 mg IVPUSH Q2H PRN LORazepam [Ativan] Med 09/20/19 13:57 Active See Protocol IV Q4H PRN Lactated Ringers [Ringers, Lactated] 1,000 ml Med 09/20/19 14:15 Active IV Q6H Ondansetron [Zofran] Med 09/20/19 13:57 Active 4 mg IVPUSH Q4H PRN Pantoprazole [ProTONIX IV] 40 mg Med 09/20/19 21:00 Active Sodium Chloride 0.9% [Normal Saline] 10 ml IV Q12H Sodium Chloride 0.9% with KCl [Normal Saline with 40 Med 09/20/19 14:48 Ordered mEq KCl] 1,000 ml IV ONETIME Thiamine [Vitamin B-1] Med 09/20/19 14:15 Active 100 mg IVPUSH DAILY Resuscitation Status Routine Resus Stat 09/20/19 13:57 Ordered Medication Orders Enoxaparin Sodium (Lovenox) 40 mg SUBCUT Q24H [facility] Last Admin: 09/20/19 14:18 Dose: 40 mg Folic Acid (Folic Acid) 1 mg SUBCUT DAILY [facility] Last Admin: 09/20/19 14:20 Dose: 1 mg Hydromorphone HCl (Dilaudid) 0.5 mg IVPUSH Q2H PRN PRN Reason: Pain Lactated Ringer's (Ringers, Lactated) 1,000 mls @ 150 mls/hr IV Q6H [facility] Last Admin: 09/20/19 14:11 Dose: 150 mls/hr Pantoprazole Sodium 40 mg/ (Sodium Chloride) 10 mls @ 300 mls/hr IV Q12H [facility] Lorazepam (Ativan) 0 mg IV Q4H PRN; Protocol PRN Reason: CIWAA` Ondansetron HCl (Zofran) 4 mg IVPUSH Q4H PRN PRN Reason: Nausea Thiamine HCl (Vitamin B-1) 100 mg IVPUSH DAILY [facility] Last Admin: 09/20/19 14:18 Dose: 100 mg Assessment/Plan Comment:: This 34 year old female admitted with acute on chronic alcoholic pancreatitis 1. Acute on chronic alcoholic pancreatitis - Give another 1 l bolus now, LR 150 there after - Dilaudid PRN pain - Zofran PRN nausea - replace K IV today - Thiamine and folic acid - CIWAA PRN alcohol withdrawal - Obtain MRI of abdomen to fully evaluate pancreas VTE prophylaxis: Lovenox Diet: NPO Code status: Full Dispo: 2-3 days - Mortality Measure Prognosis:: Good
[2019-09-20] MEDS ORDERED: Lactated Ringers 1,000 ML IV SCH (15:15)
[2019-09-20] MEDS ORDERED: Gadobenate Dimeglumine 529 MG/ML 20 ML SDV IVPUSH STA (16:02)
[2019-09-20] MEDS: HYDROmorphone 1 MG/ML Syringe IVPUSH PRN ×4 (16:43→23:38)
--- NOTE | 2019-09-20 17:05 | MR ---
MRI abdomen (without and with intravenous contrast) Technique: Various sequences were obtained axial and coronal planes. Postcontrast images also were obtained. Comparison: Previous CT studies are available, most recent study is 09/20/19. Findings: Cystic lesion is noted within the pancreatic head measuring 1.8 cm. Masslike enlargement of the pancreatic tail is seen which is stable from prior exam which show some increased signal compatible with edema. Mild enhancement is noted around the pancreas compatible with inflammatory enhancement. Several small filling defects within the main pancreatic duct are seen most likely representing pancreatic duct stones. Gallbladder shows no filling defects to indicate gallstones. Common bile duct is not dilated and shows no evidence of choledocholithiasis. Kidneys appear within normal limits. Spleen appears within normal limits. Liver shows no focal abnormality. Small bilateral pleural effusions are again noted. Impression: 1. Possible pancreatic duct stones. 2. Cystic area within the pancreatic head most likely representing developing pseudocyst. 3. Masslike area within the pancreatic tail showing edema most likely representing focal pancreatitis. 4. Mild enhancement around the tail of the pancreas compatible with inflammatory enhancement from pancreatitis. 5. No abnormality is seen within the CBD or gallbladder. Diagnostic code #3 This report was dictated in MDT
[2019-09-20] MEDS: Pantoprazole 40 MG in Sodium Chloride 0.9% 10 ML IV SCH (20:13)
[2019-09-20] MEDS ORDERED: Pantoprazole 40 MG Vial IV SCH (21:00)
[2019-09-21] MEDS: HYDROmorphone 1 MG/ML Syringe IVPUSH PRN ×7 (01:35→13:46)
[2019-09-21] MEDS: Lactated Ringers 1,000 ML IV SCH ×4 (04:20→21:18)
[2019-09-21 06:36] LABS: BLOOD UREA NITROGEN,BUN 4 mg/dL (7.0-18.0); CHLORIDE,CL 107 mmol/L (98-107); GLUCOSE RANDOM 90 mg/dL (74-106); LIPASE 598 U/L (73-393); POTASSIUM,K 3.4 mmol/L (3.5-5.1); SODIUM,NA 141 mmol/L (136-145)
[2019-09-21] MEDS: Pantoprazole 40 MG in Sodium Chloride 0.9% 10 ML IV SCH ×2 (08:02→21:14)
[2019-09-21] MEDS: Folic Acid 50 MG/10 ML MDV SUBCUT SCH (08:03)
[2019-09-21] MEDS: Thiamine 200 MG/2 ML MDV IVPUSH SCH (08:04)
--- NOTE | 2019-09-21 09:42 | PCM.PN ---
- General Info Date of Service: 09/21/19 Admission Dx/Problem (Free Text): Admission Diagnosis/Problem Admission Diagnosis/Problem Acute pancreatitis Subjective Update: Doing better this morning, pain continues to be elevated, worse at night she reports. Currently just received some pain meds, pain is at a 3, appears comfortable in bed. No chest pain, passing gas. No nausea. Functional Status: Reports: Pain Controlled, Ambulating, Urinating - Review of Systems Pulmonary: Reports: No Symptoms. Denies: Shortness of Breath Cardiovascular: Reports: No Symptoms. Denies: Chest Pain Gastrointestinal: Reports: Abdominal Pain, Flatus. Denies: Nausea, Vomiting Genitourinary: Reports: No Symptoms. Denies: Dysuria, Frequency, Burning Musculoskeletal: Reports: No Symptoms Skin: Reports: No Symptoms Neurological: Reports: No Symptoms Psychiatric: Reports: No Symptoms - Patient Data Vitals - Most Recent: Last Vital Signs Temp 98.3 F 09/21/19 07:52 Pulse 74 09/21/19 07:52 Resp 16 09/21/19 07:52 BP 171/99 H 09/21/19 07:52 Pulse Ox 97 09/21/19 07:52 Weight - Most Recent: 72.9 kg I&O - Last 24 Hours: Intake & Output 09/20/19 09/21/19 09/21/19 22:59 06:59 14:59 Intake Total 2731 Output Total 700 Balance 2031 Lab Results Last 24 Hours: Laboratory Results - last 24 hr 09/20/19 09/20/19 09/20/19 Range/Units 10:19 10:19 10:19 WBC 7.47 (4.0-11.0) K/uL RBC 3.69 L (4.30-5.90) M/uL Hgb 11.8 L (12.0-16.0) g/dL Hct 35.5 L (36.0-46.0) % MCV 96.2 (80.0-98.0) fL MCH 32.0 (27.0-32.0) pg MCHC 33.2 (31.0-37.0) g/dL RDW Std Deviation 43.2 (28.0-62.0) fl RDW Coeff of [place] 12 (11.0-15.0) % Plt Count 286 (150-400) K/uL MPV 8.50 (7.40-12.00) fL Neut % (Auto) 54.2 (48.0-80.0) % Lymph % (Auto) 31.9 (16.0-40.0) % Clay % (Auto) 12.3 (0.0-15.0) % Eos % (Auto) 1.2 (0.0-7.0) % Baso % (Auto) 0.4 (0.0-1.5) % Neut # (Auto) 4.1 (1.4-5.7) K/uL Lymph # (Auto) 2.4 (0.6-2.4) K/uL Clay # (Auto) 0.9 H (0.0-0.8) K/uL Eos # (Auto) 0.1 (0.0-0.7) K/uL Baso # (Auto) 0.0 (0.0-0.1) K/uL Nucleated RBC % 0.0 /100WBC Nucleated RBCs # 0 K/uL Lactate (0.20-2.00) mmol/L Sodium 141 (136-145) mmol/L Potassium 3.2 L (3.5-5.1) mmol/L Chloride 104 (98-107) mmol/L Carbon Dioxide 27.2 (21.0-32.0) mmol/L BUN 7 (7.0-18.0) mg/dL Creatinine 0.6 (0.6-1.0) mg/dL Est Cr Clr Drug Dosing 115.16 mL/min Estimated GFR (MDRD) > 60.0 ml/min Glucose 123 H (74-106) mg/dL Calcium 9.1 (8.5-10.1) mg/dL Magnesium 1.9 (1.8-2.4) mg/dL Total Bilirubin 0.3 (0.2-1.0) mg/dL AST 22 (15-37) IU/L ALT 21 (14-63) IU/L Alkaline Phosphatase 65 (46-116) U/L C-Reactive Protein (0.00-0.90) mg/dL Total Protein 7.0 (6.4-8.2) g/dL Albumin 3.2 L (3.4-5.0) g/dL Globulin 3.8 (2.6-4.0) g/dL Albumin/Globulin Ratio 0.8 L (0.9-1.6) Lipase 775 H (73-393) U/L 09/21/19 09/21/19 09/21/19 Range/Units 05:55 05:55 05:55 WBC 7.24 (4.0-11.0) K/uL RBC 3.34 L (4.30-5.90) M/uL Hgb 10.7 L (12.0-16.0) g/dL Hct 32.8 L (36.0-46.0) % MCV 98.2 H (80.0-98.0) fL MCH 32.0 (27.0-32.0) pg MCHC 32.6 (31.0-37.0) g/dL RDW Std Deviation 45.1 (28.0-62.0) fl RDW Coeff of [place] 13 (11.0-15.0) % Plt Count 245 (150-400) K/uL MPV 8.30 (7.40-12.00) fL Neut % (Auto) 40.7 L (48.0-80.0) % Lymph % (Auto) 46.1 H (16.0-40.0) % Clay % (Auto) 11.0 (0.0-15.0) % Eos % (Auto) 1.9 (0.0-7.0) % Baso % (Auto) 0.3 (0.0-1.5) % Neut # (Auto) 2.9 (1.4-5.7) K/uL Lymph # (Auto) 3.3 H (0.6-2.4) K/uL Clay # (Auto) 0.8 (0.0-0.8) K/uL Eos # (Auto) 0.1 (0.0-0.7) K/uL Baso # (Auto) 0.0 (0.0-0.1) K/uL Nucleated RBC % 0.0 /100WBC Nucleated RBCs # 0 K/uL Lactate 0.5 (0.20-2.00) mmol/L Sodium 141 (136-145) mmol/L Potassium 3.4 L (3.5-5.1) mmol/L Chloride 107 (98-107) mmol/L Carbon Dioxide 28.0 (21.0-32.0) mmol/L BUN 4 L (7.0-18.0) mg/dL Creatinine 0.5 L (0.6-1.0) mg/dL Est Cr Clr Drug Dosing 138.19 mL/min Estimated GFR (MDRD) > 60.0 ml/min Glucose 90 (74-106) mg/dL Calcium 7.9 L (8.5-10.1) mg/dL Magnesium (1.8-2.4) mg/dL Total Bilirubin 0.3 (0.2-1.0) mg/dL AST 27 (15-37) IU/L ALT 21 (14-63) IU/L Alkaline Phosphatase 52 (46-116) U/L C-Reactive Protein 3.90 H (0.00-0.90) mg/dL Total Protein 5.7 L (6.4-8.2) g/dL Albumin 2.5 L (3.4-5.0) g/dL Globulin 3.2 (2.6-4.0) g/dL Albumin/Globulin Ratio 0.8 L (0.9-1.6) Lipase 598 H (73-393) U/L Med Orders - Current: Current Medications Enoxaparin Sodium (Lovenox) 40 mg SUBCUT Q24H [facility] Last Admin: 09/20/19 14:18 Dose: 40 mg Folic Acid (Folic Acid) 1 mg SUBCUT DAILY [facility] Last Admin: 09/21/19 08:03 Dose: 1 mg Hydromorphone HCl (Dilaudid) 0.5 mg IVPUSH Q2H PRN PRN Reason: Pain Last Admin: 09/21/19 07:47 Dose: 0.5 mg Lactated Ringer's (Ringers, Lactated) 1,000 mls @ 150 mls/hr IV Q6H [facility] Last Admin: 09/21/19 04:20 Dose: 150 mls/hr Pantoprazole Sodium 40 mg/ (Sodium Chloride) 10 mls @ 300 mls/hr IV Q12H [facility] Last Admin: 09/21/19 08:02 Dose: 300 mls/hr Lorazepam (Ativan) 0 mg IV Q4H PRN; Protocol PRN Reason: CIWAA` Ondansetron HCl (Zofran) 4 mg IVPUSH Q4H PRN PRN Reason: Nausea Thiamine HCl (Vitamin B-1) 100 mg IVPUSH DAILY [facility] Last Admin: 09/21/19 08:04 Dose: 100 mg Discontinued Medications Gadobenate Dimeglumine (Multihance) 14 ml IVPUSH ONETIME STA Stop: 09/20/19 16:03 Last Admin: 09/20/19 16:03 Dose: 14 ml Sodium Chloride (Normal Saline) 1,000 mls @ 1,000 mls/hr IV .Bolus ONE Stop: 09/20/19 11:06 Last Admin: 09/20/19 10:23 Dose: 1,000 mls/hr Potassium Chloride/Sodium Chloride (Normal Saline With 40 Meq Kcl) 1,000 mls @ 150 mls/hr IV ONETIME ONE Stop: 09/20/19 21:27 Last Admin: 09/20/19 15:43 Dose: 150 mls/hr Lactated Ringer's (Ringers, Lactated) 1,000 mls @ 999 mls/hr IV .BOLUS [facility] Last Admin: 09/21/19 04:19 Dose: 999 mls/hr Iopamidol (Isovue Multipack-370 (76%)) 85 ml IVPUSH ONETIME STA Stop: 09/20/19 11:46 Last Admin: 09/20/19 11:45 Dose: 85 ml Ketorolac Tromethamine (Toradol) 15 mg IVPUSH ONETIME ONE Stop: 09/20/19 10:08 Last Admin: 09/20/19 10:23 Dose: 15 mg Morphine Sulfate (Morphine) 6 mg IVPUSH ONETIME ONE Stop: 09/20/19 10:56 Last Admin: 09/20/19 11:04 Dose: 6 mg Morphine Sulfate (Morphine) 6 mg IVPUSH ONETIME ONE Stop: 09/20/19 13:26 Last Admin: 09/20/19 13:39 Dose: 6 mg Pantoprazole Sodium (Protonix Iv) 40 mg IV Q12HR [facility] - Exam General: Alert, Oriented, Cooperative, No Acute Distress Lungs: Clear to Auscultation, Normal Respiratory Effort Cardiovascular: Regular Rate, Regular Rhythm GI/Abdominal Exam: Normal Bowel Sounds, Soft, Tender (epigastric) Back Exam: Normal Inspection, Full Range of Motion Extremities: Normal Inspection, Normal Range of Motion, Non-Tender Neurological: No New Focal Deficit Psy/Mental Status: Alert, Normal Affect, Normal Mood Sepsis Event Note - Evaluation Sepsis Screening Result: No Definite Risk - Focused Exam Vital Signs: Vital Signs Temp Pulse Resp BP Pulse Ox 09/21/19 07:52 98.3 F 74 16 171/99 H 97 09/21/19 03:40 98.2 F 81 18 170/110 H 96 09/20/19 23:34 97.5 F 77 18 159/99 H 97 Date Exam was Performed: 09/21/19 Time Exam was Performed: 09:34 - Problem List & Annotations (1) Acute on chronic pancreatitis SNOMED Code(s): 464515425 Code(s): K85.90 - ACUTE PANCREATITIS WITHOUT NECROSIS OR INFECTION, UNSP; K86.1 - OTHER CHRONIC PANCREATITIS Status: Acute Current Visit: No (2) Alcohol abuse SNOMED Code(s): 37850176 Code(s): F10.10 - ALCOHOL ABUSE, UNCOMPLICATED Status: Chronic Current Visit: No (3) Pancreatic cyst SNOMED Code(s): 84152404 Code(s): K86.2 - CYST OF PANCREAS Status: Chronic Current Visit: No - Problem List Review Problem List Initiated/Reviewed/Updated: Yes - My Orders Last 24 Hours: My Active Orders 09/20/19 13:57 Intake and Output [RC] Q12H May Shower [RC] ASDIRECTED Oxygen Therapy [RC] PRN Up to Chair [RC] ASDIRECTED VTE/DVT Education [RC] PER UNIT ROUTINE Vital Signs [RC] Q4H LORazepam [Ativan] See Protocol IV Q4H PRN Ondansetron [Zofran] 4 mg IVPUSH Q4H PRN Resuscitation Status Routine 09/20/19 14:00 Enoxaparin [Lovenox] 40 mg SUBCUT Q24H 09/20/19 14:02 HYDROmorphone [Dilaudid] 0.5 mg IVPUSH Q2H PRN 09/20/19 14:03 Folic Acid 1 mg SUBCUT DAILY 09/20/19 14:15 Lactated Ringers [Ringers, Lactated] 1,000 ml IV Q6H Thiamine [Vitamin B-1] 100 mg IVPUSH DAILY 09/20/19 21:00 Pantoprazole [ProTONIX IV] 40 mg Sodium Chloride 0.9% [Normal Saline] 10 ml IV Q12H 09/20/19 Dinner Nothing Per Oral Diet [DIET] 09/22/19 05:11 CBC WITH AUTO DIFF [HEME] AM COMPREHENSIVE METABOLIC PN,CMP [CHEM] AM 09/23/19 05:11 CBC WITH AUTO DIFF [HEME] AM COMPREHENSIVE METABOLIC PN,CMP [CHEM] AM - Plan Plan:: This 34 year old female admitted with acute on chronic alcoholic pancreatitis 1. Acute on chronic alcoholic pancreatitis - LR 150 continue for now - Dilaudid PRN pain - Zofran PRN nausea - Thiamine and folic acid - CIWAA PRN alcohol withdrawal - Obtain MRI of abdomen reveals possible pancreatic duct stones, cystic area within the pancreatic head, mass like area within the pancreatic tail showing edema most likely representing focal pancreatitis. No abnormality within the CBD or gallbladder. - SPoke with patient, was seen by GI in [place] in the past, requests another provider, possibly in [place]. Will contact GI in [place] to obtain recommendations. VTE prophylaxis: Lovenox Diet: NPO Code status: Full Dispo: 2-3 days
[2019-09-21] MEDS: Enoxaparin 40 MG/0.4 ML Syringe SUBCUT SCH (13:43)
--- NOTE | 2019-09-21 14:15 | PCM.SN ---
- Free Text/Narrative Note: Spoke with Dr Moore, GI specialist in [place] at [facility]. We discussed patient imaging findings. Recommends treatment for acute pancreatitis as we are doing. Encourage sobriety and follow up with GI clinic in 2-3 months to allow inflammation to settle. He would then recommend US or ERCP to further evaluate. Discussed this with patient, she is in agreement with this and happy with referral to [place].
[2019-09-21] MEDS: oxyCODONE 5 MG Tab PO PRN ×2 (16:44→21:15)
[2019-09-22] MEDS: Lactated Ringers 1,000 ML IV SCH ×2 (02:34→13:59)
[2019-09-22] MEDS: oxyCODONE 5 MG Tab PO PRN ×3 (04:03→12:15)
[2019-09-22 06:04] LABS: BLOOD UREA NITROGEN,BUN 3 mg/dL (7.0-18.0); CARBON DIOXIDE,CO2 27.3 mmol/L (21.0-32.0); CHLORIDE,CL 104 mmol/L (98-107); GLUCOSE RANDOM 96 mg/dL (74-106); POTASSIUM,K 3.3 mmol/L (3.5-5.1); SODIUM,NA 141 mmol/L (136-145)
[2019-09-22] MEDS: Pantoprazole 40 MG in Sodium Chloride 0.9% 10 ML IV SCH (08:23)
[2019-09-22] MEDS: Thiamine 200 MG/2 ML MDV IVPUSH SCH (08:23)
[2019-09-22] MEDS: Folic Acid 50 MG/10 ML MDV SUBCUT SCH (08:24)
--- NOTE | 2019-09-22 12:32 | PCM.DCSUM1 ---
Discharge Summary - Hospital Course Free Text/Narrative:: This 34 year old female with pmh of chronic pancreatitis due to alcohol, hx of pancreatic pseudocyst and multiple admissions for acute on chronic pancreatitis presented today with concerns of worsening abdominal along with nausea and inability to keep fluids down at home. She was discharged 3 days ago, she denies any alcohol use since discharge. States the pain gradually increased at home along with the nausea and poor appetite. She reports not eating much at home since discharge either. She denies fevers or chills, no cough or chest pain. No dyspnea. No BM for 5 days. No bleeding. In the ED CBC stable, hypokalemia noted, 3.2, no transaminitis and no renal dysfunction. Lipase 775 CT was obtained which shows interval worsening inflammatory changes to pancreas more specifically pancreatic tail which appears "masslike". Given IVFs and Morphine for pain in ED. Admitted for acute on chronic pancreatitis. Patient was ket NPO, started on IV fluids and IV PPI, MRI of abdomen showed possible pancreatic duct stones and developing pancreatic pseudocyst. Patients lipase improved, her [ain was much better the next day. Diet was advnaved. patient was feeling much better and wished t go home. Patient was discharged home with short supply of Percocet and recommended to fu with GI on outpatient basis. Diagnosis: Stroke: No - Discharge Data Discharge Date: 09/22/19 Discharge Disposition: Home, Self-Care 01 Preliminary Cause of *Q: Respiratory Failure Condition: Fair - Referral to Home Health Primary Care Physician: Jarrett Harper MD - Patient Summary/Data Consults: Consultations 09/20/19 19:14 Consult to Physician [CONS] Routine - Patient Instructions Diet: GI Soft/Low Residue/Low Fiber Activity: As Tolerated Driving: May Drive Today Showering/Bathing: May Shower Notify Provider of: Fever, Increased Pain, Swelling and Redness, Drainage, Nausea and/or Vomiting - Discharge Plan *PRESCRIPTION DRUG MONITORING PROGRAM REVIEWED*: Not Applicable *COPY OF PRESCRIPTION DRUG MONITORING REPORT IN PATIENT RENÉE: Not Applicable Prescriptions/Med Rec: Acetaminophen/oxyCODONE [Percocet 325-5 MG] 1 tab PO BID #10 tablet Omeprazole 20 mg PO ACBREAKFAST #10 cap.sr Home Medications: Home Meds Norgestimate-Ethinyl Estradiol [Ford-Linyah 28 Tablet] 1 each PO DAILY 05/17/19 [History] Jeffery/Vit B12/Folic Acid/Vit B6 [Folic Acid-Vit B6-Vit B12 Tab] 1 each PO DAILY # 30 tablet 09/17/19 [Rx] Acetaminophen/oxyCODONE [Percocet 325-5 MG] 1 tab PO BID #10 tablet 09/22/19 [Rx ] Omeprazole 20 mg PO ACBREAKFAST #10 cap.sr 09/22/19 [Rx] Patient Handouts: Chronic Pancreatitis Referrals: Jarrett Harper MD [Primary Care Provider] - 09/26/19 8:30 am - Patient Data Vitals - Most Recent: Last Vital Signs Temp 37.0 C 09/22/19 07:10 Pulse 88 09/22/19 07:10 Resp 16 09/22/19 07:10 BP 151/105 H 09/22/19 07:10 Pulse Ox 96 09/22/19 07:10 Weight - Most Recent: 72.9 kg I&O - Last 24 hours: Intake & Output 09/21/19 09/22/19 09/22/19 22:59 06:59 14:59 Intake Total 1950 1385 Output Total 1250 Balance 700 1385 Lab Results - Last 24 hrs: Laboratory Results - last 24 hr 09/22/19 09/22/19 09/22/19 Range/Units 05:20 05:20 05:20 WBC 5.84 (4.0-11.0) K/uL RBC 3.78 L (4.30-5.90) M/uL Hgb 11.9 L (12.0-16.0) g/dL Hct 36.7 (36.0-46.0) % MCV 97.1 (80.0-98.0) fL MCH 31.5 (27.0-32.0) pg MCHC 32.4 (31.0-37.0) g/dL RDW Std Deviation 43.7 (28.0-62.0) fl RDW Coeff of [place] 13 (11.0-15.0) % Plt Count 284 (150-400) K/uL MPV 8.50 (7.40-12.00) fL Neut % (Auto) 57.4 (48.0-80.0) % Lymph % (Auto) 29.8 (16.0-40.0) % [place] % (Auto) 10.6 (0.0-15.0) % Eos % (Auto) 1.9 (0.0-7.0) % Baso % (Auto) 0.3 (0.0-1.5) % Neut # (Auto) 3.4 (1.4-5.7) K/uL Lymph # (Auto) 1.7 (0.6-2.4) K/uL [place] # (Auto) 0.6 (0.0-0.8) K/uL Eos # (Auto) 0.1 (0.0-0.7) K/uL Baso # (Auto) 0.0 (0.0-0.1) K/uL Nucleated RBC % 0.0 /100WBC Nucleated RBCs # 0 K/uL Sodium 141 (136-145) mmol/L Potassium 3.3 L (3.5-5.1) mmol/L Chloride 104 (98-107) mmol/L Carbon Dioxide 27.3 (21.0-32.0) mmol/L BUN 3 L (7.0-18.0) mg/dL Creatinine 0.4 L (0.6-1.0) mg/dL Est Cr Clr Drug Dosing 172.74 mL/min Estimated GFR (MDRD) > 60.0 ml/min Glucose 96 (74-106) mg/dL Calcium 8.7 (8.5-10.1) mg/dL Total Bilirubin 0.3 (0.2-1.0) mg/dL AST 26 (15-37) IU/L ALT 24 (14-63) IU/L Alkaline Phosphatase 61 (46-116) U/L Total Protein 6.1 L (6.4-8.2) g/dL Albumin 2.7 L (3.4-5.0) g/dL Globulin 3.4 (2.6-4.0) g/dL Albumin/Globulin Ratio 0.8 L (0.9-1.6) Lipase 431 H (73-393) U/L Med Orders - Current: Current Medications Enoxaparin Sodium (Lovenox) 40 mg SUBCUT Q24H [facility] Last Admin: 09/21/19 13:43 Dose: 40 mg Folic Acid (Folic Acid) 1 mg SUBCUT DAILY [facility] Last Admin: 09/22/19 08:24 Dose: 1 mg Lactated Ringer's (Ringers, Lactated) 1,000 mls @ 150 mls/hr IV Q6H [facility] Last Admin: 09/22/19 02:34 Dose: 150 mls/hr Pantoprazole Sodium 40 mg/ (Sodium Chloride) 10 mls @ 300 mls/hr IV Q12H [facility] Last Admin: 09/22/19 08:23 Dose: 300 mls/hr Lorazepam (Ativan) 0 mg IV Q4H PRN; Protocol PRN Reason: CIWAA` Ondansetron HCl (Zofran) 4 mg IVPUSH Q4H PRN PRN Reason: Nausea Oxycodone HCl (Oxycodone) 5 mg PO Q4H PRN PRN Reason: Pain Last Admin: 09/22/19 12:15 Dose: 5 mg Thiamine HCl (Vitamin B-1) 100 mg IVPUSH DAILY [facility] Last Admin: 09/22/19 08:23 Dose: 100 mg Discontinued Medications Gadobenate Dimeglumine (Multihance) 14 ml IVPUSH ONETIME STA Stop: 09/20/19 16:03 Last Admin: 09/20/19 16:03 Dose: 14 ml Hydromorphone HCl (Dilaudid) 0.5 mg IVPUSH Q2H PRN PRN Reason: Pain Last Admin: 09/21/19 13:46 Dose: 0.5 mg Sodium Chloride (Normal Saline) 1,000 mls @ 1,000 mls/hr IV .Bolus ONE Stop: 09/20/19 11:06 Last Admin: 09/20/19 10:23 Dose: 1,000 mls/hr Potassium Chloride/Sodium Chloride (Normal Saline With 40 Meq Kcl) 1,000 mls @ 150 mls/hr IV ONETIME ONE Stop: 09/20/19 21:27 Last Admin: 09/20/19 15:43 Dose: 150 mls/hr Lactated Ringer's (Ringers, Lactated) 1,000 mls @ 999 mls/hr IV .BOLUS [facility] Last Admin: 09/21/19 04:19 Dose: 999 mls/hr Iopamidol (Isovue Multipack-370 (76%)) 85 ml IVPUSH ONETIME STA Stop: 09/20/19 11:46 Last Admin: 09/20/19 11:45 Dose: 85 ml Ketorolac Tromethamine (Toradol) 15 mg IVPUSH ONETIME ONE Stop: 09/20/19 10:08 Last Admin: 09/20/19 10:23 Dose: 15 mg Morphine Sulfate (Morphine) 6 mg IVPUSH ONETIME ONE Stop: 09/20/19 10:56 Last Admin: 09/20/19 11:04 Dose: 6 mg Morphine Sulfate (Morphine) 6 mg IVPUSH ONETIME ONE Stop: 09/20/19 13:26 Last Admin: 09/20/19 13:39 Dose: 6 mg Pantoprazole Sodium (Protonix Iv) 40 mg IV Q12HR [facility]
--- NOTE | 2019-09-26 19:35 | EDM.PDOC ---
ED HPI GENERAL MEDICAL PROBLEM - General Chief Complaint: Abdominal Pain Stated Complaint: ABDOMINAL MASK Time Seen by Provider: 09/20/19 11:45 Source of Information: Reports: Patient History Limitations: Reports: No Limitations - History of Present Illness INITIAL COMMENTS - FREE TEXT/NARRATIVE: Patient is a 34-year-old female with past medical history of chronic pancreatitis secondary to alcohol abuse. Patient reports chief complaint of abdominal pain. Patient states the pain is similar to prior episodes of pancreatitis. Patient states that the pain is in the epigastric region without radiation. Patient reports associated nausea but no vomiting. Nothing seems to make the pain better or worse. Patient reports being unable to eat for the past couple of days due to pain. Onset was about 1 day ago. Patient has prior admissions for pancreatitis. No fevers or chest pain. Pmhx: Pancreatitis Pshx: None Family Hx: noncontributory Smoking history? no Etoh use? Yes, last alcoholic beverage was over 5 days ago Drug use? none In addition to that documented in the HPI above, the additional ROS was obtained : Constitutional: Denies fevers or chills Eyes: Denies vision changes ENMT: Denies sore throat CV: Denies chest pain Resp: Denies SOB GI: Per HPI : Denies painful urination MSK: Denies recent trauma Skin: Denies new rashes Neuro: Denies new numbness or tingling or weakness Endocrine: Denies unexpected weight loss Heme: Denies bleeding disorders I have reviewed the triage vital signs Const: Well nourished, well developed, appears stated age Eyes: PERRL, no conjunctival injection HENT: NCAT, Neck supple without meningismus CV: RRR, Warm, well-perfused extremities RESP: CTAB, Unlabored respiratory effort GI: Tenderness to palpation of the epigastric region no guarding or rebound, soft, non-distended, no masses MSK: No gross deformities appreciated Skin: Warm, dry. 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 Sensation and motor function of extremities grossly intact. Psych: Appropriate mood and affect Assessment and plan: Patient is 34-year-old female presenting with epigastric pain. Patient had elevated lipase at 775. Started tell with the patient's baseline is since she has recurrent visits for acute on chronic pancreatitis. CT scan performed to further evaluate which demonstrates interval worsening of the pancreatitis. Given patient's pain and recurrent visits, patient will be admitted to the hospital for pain control, IV fluids, further evaluation. Patient agrees with being admitted. Case discussed with on-call hospitalist. Upper Abdomen Pain Score (Numeric/FACES): 5 - Related Data Allergies Allergy/AdvReac Type Severity Reaction Status Date / Time No Known Allergies Allergy Verified 09/21/19 01:40 Home Meds: Home Meds Norgestimate-Ethinyl Estradiol [[place]-Linyah 28 Tablet] 1 each PO DAILY 05/17/19 [History] Jeffery/Vit B12/Folic Acid/Vit B6 [Folic Acid-Vit B6-Vit B12 Tab] 1 each PO DAILY # 30 tablet 09/17/19 [Rx] Acetaminophen/oxyCODONE [Percocet 325-5 MG] 1 tab PO BID #10 tablet 09/22/19 [Rx ] Omeprazole 20 mg PO ACBREAKFAST #10 cap.sr 09/22/19 [Rx] Past Medical History - Past Health History Medical/Surgical History: Denies Medical/Surgical History HEENT History: Reports: None Cardiovascular History: Reports: Blood Clots/VTE/DVT Other Cardiovascular History: blood clot on the liver Respiratory History: Reports: None Gastrointestinal History: Reports: Pancreatitis Genitourinary History: Reports: None 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 Musculoskeletal History: Reports: None Neurological History: Reports: None Psychiatric History: Reports: Addiction Other Psychiatric History: ETOH Endocrine/Metabolic History: Reports: None Hematologic History: Reports: None Immunologic History: Reports: None Oncologic (Cancer) History: Reports: None Dermatologic History: Reports: None - Infectious Disease History Infectious Disease History: Reports: None - Past Surgical History Head Surgeries/Procedures: Reports: None HEENT Surgical History: Reports: None Cardiovascular Surgical History: Reports: None Respiratory Surgical History: Reports: None GI Surgical History: Reports: EGD Female Surgical History: Reports: None Endocrine Surgical History: Reports: None Neurological Surgical History: Reports: None Musculoskeletal Surgical History: Reports: None Oncologic Surgical History: Reports: None Dermatological Surgical History: Reports: None Social & Family History - Family History Family Medical History: Noncontributory Cardiac: Reports: [place] - Tobacco Use Smoking Status *Q: Never Smoker Second Hand Smoke Exposure: No - Caffeine Use Caffeine Use: Reports: Soda Other Caffeine Use: 2 Diet Cokes a day - Alcohol Use Days Per Week of Alcohol Use: 5 Number of Drinks Per Day: 5 Total Drinks Per Week: 25 Date of Last Drink: 09/13/19 Time of Last Drink: 05:00 - Recreational Drug Use Recreational Drug Use: No - Living Situation & Occupation Living situation: Reports: Single Occupation: Unemployed ED ROS GENERAL - Review of Systems Review Of Systems: See Below ED EXAM, GI/ABD - Physical Exam Exam: See Below Course - Vital Signs Last Recorded V/S: Last Vital Signs Temp 36.6 C 09/22/19 12:00 Pulse 89 09/22/19 12:00 Resp 16 09/22/19 12:00 BP 151/105 H 09/22/19 12:00 Pulse Ox 96 09/22/19 12:00 - Orders/Labs/Meds Labs: Laboratory Tests 09/20/19 09/20/19 09/20/19 Range/Units 10:19 10:19 10:19 WBC 7.47 (4.0-11.0) K/uL RBC 3.69 L (4.30-5.90) M/uL Hgb 11.8 L (12.0-16.0) g/dL Hct 35.5 L (36.0-46.0) % MCV 96.2 (80.0-98.0) fL MCH 32.0 (27.0-32.0) pg MCHC 33.2 (31.0-37.0) g/dL RDW Std Deviation 43.2 (28.0-62.0) fl RDW Coeff of [place] 12 (11.0-15.0) % Plt Count 286 (150-400) K/uL MPV 8.50 (7.40-12.00) fL Neut % (Auto) 54.2 (48.0-80.0) % Lymph % (Auto) 31.9 (16.0-40.0) % [place] % (Auto) 12.3 (0.0-15.0) % Eos % (Auto) 1.2 (0.0-7.0) % Baso % (Auto) 0.4 (0.0-1.5) % Neut # (Auto) 4.1 (1.4-5.7) K/uL Lymph # (Auto) 2.4 (0.6-2.4) K/uL [place] # (Auto) 0.9 H (0.0-0.8) K/uL Eos # (Auto) 0.1 (0.0-0.7) K/uL Baso # (Auto) 0.0 (0.0-0.1) K/uL Nucleated RBC % 0.0 /100WBC Nucleated RBCs # 0 K/uL Sodium 141 (136-145) mmol/L Potassium 3.2 L (3.5-5.1) mmol/L Chloride 104 (98-107) mmol/L Carbon Dioxide 27.2 (21.0-32.0) mmol/L BUN 7 (7.0-18.0) mg/dL Creatinine 0.6 (0.6-1.0) mg/dL Est Cr Clr Drug Dosing 115.16 mL/min Estimated GFR (MDRD) > 60.0 ml/min Glucose 123 H (74-106) mg/dL Calcium 9.1 (8.5-10.1) mg/dL Magnesium 1.9 (1.8-2.4) mg/dL Total Bilirubin 0.3 (0.2-1.0) mg/dL AST 22 (15-37) IU/L ALT 21 (14-63) IU/L Alkaline Phosphatase 65 (46-116) U/L Total Protein 7.0 (6.4-8.2) g/dL Albumin 3.2 L (3.4-5.0) g/dL Globulin 3.8 (2.6-4.0) g/dL Albumin/Globulin Ratio 0.8 L (0.9-1.6) Lipase 775 H (73-393) U/L Meds: Medications Discontinued Medications Generic Name Dose Route Start Last Admin Trade Name Freq PRN Reason Stop Dose Admin Enoxaparin Sodium 40 mg 09/20/19 14:00 09/21/19 13:43 Lovenox SUBCUT 40 mg Q24H CARLITOS Administration Folic Acid 1 mg 09/20/19 14:03 09/22/19 08:24 Folic Acid SUBCUT 1 mg DAILY CARLITOS Administration Gadobenate Dimeglumine 14 ml 09/20/19 16:02 09/20/19 16:03 Multihance IVPUSH 09/20/19 16:03 14 ml ONETIME STA Administration Hydromorphone HCl 0.5 mg 09/20/19 14:02 09/21/19 13:46 Dilaudid IVPUSH 0.5 mg Q2H PRN Administration Pain Sodium Chloride 1,000 mls @ 1,000 mls/hr 09/20/19 10:07 09/20/19 10:23 Normal Saline IV 09/20/19 11:06 1,000 mls/hr .Bolus ONE Administration Lactated Ringer's 1,000 mls @ 150 mls/hr 09/20/19 14:15 09/22/19 13:59 Ringers, Lactated IV Not Given Q6H CALRITOS Pantoprazole Sodium 40 mg/ 10 mls @ 300 mls/hr 09/20/19 21:00 09/22/19 08:23 Sodium Chloride IV 300 mls/hr Q12H CARLITOS Administration Potassium Chloride/Sodium Chloride 1,000 mls @ 150 mls/hr 09/20/19 14:48 15:43 Normal Saline With 40 Meq Kcl IV 09/20/19 21:27 150 mls/hr ONETIME ONE Administration Lactated Ringer's 1,000 mls @ 999 mls/hr 09/20/19 15:15 09/21/19 04:19 Ringers, Lactated IV 999 mls/hr .BOLUS CARLITOS Administration Iopamidol 85 ml 09/20/19 11:45 09/20/19 11:45 Isovue Multipack-370 (76%) IVPUSH 09/20/19 11:46 85 ml ONETIME STA Administration Ketorolac Tromethamine 15 mg 09/20/19 10:07 09/20/19 10:23 Toradol IVPUSH 09/20/19 10:08 15 mg ONETIME ONE Administration Lorazepam 0 mg 09/20/19 13:57 Ativan IV Q4H PRN CIWAA` Protocol Morphine Sulfate 6 mg 09/20/19 10:55 09/20/19 11:04 Morphine IVPUSH 09/20/19 10:56 6 mg ONETIME ONE Administration Morphine Sulfate 6 mg 09/20/19 13:25 09/20/19 13:39 Morphine IVPUSH 09/20/19 13:26 6 mg ONETIME ONE Administration Ondansetron HCl 4 mg 09/20/19 13:57 Zofran IVPUSH Q4H PRN Nausea Oxycodone HCl 5 mg 09/21/19 14:15 09/22/19 12:15 Oxycodone PO 5 mg Q4H PRN Administration Pain Pantoprazole Sodium 40 mg 09/20/19 21:00 Protonix Iv IV Q12HR CARLITOS Thiamine HCl 100 mg 09/20/19 14:15 09/22/19 08:23 Vitamin B-1 IVPUSH 100 mg DAILY CARLITOS Administration Departure - Departure Time of Disposition: 12:10 Disposition: Refer to Observation Preliminary Cause of *Q: Other_Special Instruction (...) Clinical Impression: Pancreatitis, acute Qualifiers: Pancreatitis type: alcohol induced Acute pancreatitis complication: unspecified Qualified Code(s): K85.20 - Alcohol induced acute pancreatitis without necrosis or infection - Discharge Information *PRESCRIPTION DRUG MONITORING PROGRAM REVIEWED*: Not Applicable *COPY OF PRESCRIPTION DRUG MONITORING REPORT IN PATIENT RENÉE: Not Applicable Sepsis Event Note - Evaluation Sepsis Screening Result: No Definite Risk
== END 2019-09-22 13:05 | disposition home or self-care (01) ==
LOC: MW.ED 09:44 → MW.MS 13:13 → UNDOADMOB 13:23 → MW.MS 13:23
PROVIDERS: ADMIT Student in an Organized Health Care Education/Training Program; ATTEND Student in an Organized Health Care Education/Training Program
DX: K85.20 Alcohol induced acute pancreatitis without necrosis or infection (principal); K86.0 Alcohol-induced chronic pancreatitis; K86.2 Cyst of pancreas; F10.10 Alcohol abuse, uncomplicated
CPT/HCPCS: 36415; 74177; 74177-26; 74183; 74183-26; 80053; 83605; 83690; 83735; 85025; 86140; 96374; 96375; 96376; 99284; 99285-25; A9270-GY; A9577; C9113; J1170; J1650; J1885; J2270; J3411; J3480; J7030; J7050; J7120; Q9967

== ENCOUNTER 2019-12-07 22:20 | Observation (INO) | payer OTHER ==
[2019-12-07] MEDS ORDERED: Ondansetron 4 MG/2 ML SDV IVPUSH ONE (23:21)
[2019-12-07] MEDS ORDERED: Sodium Chloride 0.9% 2.5 ML Syringe FLUSH PRN (23:21)
[2019-12-07] MEDS ORDERED: Sodium Chloride 0.9% 1,000 ML IV ONE (23:21)
[2019-12-07] MEDS ORDERED: HYDROmorphone 1 MG/ML Syringe IVPUSH ONE (23:21)
[2019-12-07] MEDS ORDERED: Famotidine 20 MG/2 ML SDV IVPUSH ONE (23:21)
[2019-12-07] MEDS ORDERED: Sodium Chloride 0.9% 10 ML Syringe FLUSH PRN (23:21)
[2019-12-07 23:53] LABS: BLOOD UREA NITROGEN,BUN 6 mg/dL (7.0-18.0); CARBON DIOXIDE,CO2 25.9 mmol/L (21.0-32.0); CHLORIDE,CL 103 mmol/L (98-107); GLUCOSE RANDOM 108 mg/dL (74-106); LIPASE 680 U/L (73-393); POTASSIUM,K 3.8 mmol/L (3.5-5.1); SODIUM,NA 140 mmol/L (136-145)
--- NOTE | 2019-12-08 00:07 | EDM.PDOC ---
ED HPI GENERAL MEDICAL PROBLEM - General Chief Complaint: Abdominal Pain Stated Complaint: ABDOMINAL PAIN Time Seen by Provider: 12/07/19 23:19 Source of Information: Reports: Patient History Limitations: Reports: No Limitations - History of Present Illness INITIAL COMMENTS - FREE TEXT/NARRATIVE: History of present illness: [Patient is 34-year-old female with a history of chronic pancreatitis who presents with suspected pancreatitis flareup. She has a history of alcohol abuse which led to her chronic pancreatitis. States that she was admitted to the hospital a few days ago at another facility and was discharged but has had pain since then. She states they prescribed her oxycodone for home use but she ran out of those medications and is here because of recurrent pain. Denies vomiting or diarrhea. Pain is epigastric, radiates to the back, feels like typical and previous pancreatitis flareups. Denies chest pain or shortness of breath. Denies any cardiac or lung problems. No URI. Denies fever.] Review of systems: As per history of present illness and below otherwise all systems reviewed and negative. Past medical history: As per history of present illness and as reviewed below otherwise noncontributory. Surgical history: As per history of present illness and as reviewed below otherwise noncontributory. Social history: No reported history of drug or alcohol abuse. Family history: As per history of present illness and as reviewed below otherwise noncontributory. Physical exam: General: Awake, alert, no acute distress, A&O X3. HEENT: Atraumatic, normocephalic, pupils reactive, negative for conjunctival pallor or scleral icterus, mucous membranes moist, throat clear, neck supple, nontender, trachea midline. Lungs: Clear to auscultation, breath sounds equal bilaterally, chest nontender. Heart: RRR, normal S1S2, no JVD. Abdomen: Soft, nondistended, nontender. Negative for masses or hepatosplenomegaly. Negative for costovertebral tenderness. Pelvis: Stable nontender. Genitourinary: Deferred. Rectal: Deferred. Extremities: Atraumatic, no edema, Neurovascular unremarkable. Neuro: Motor and sensory grossly intact throughout. Exam nonfocal. Diagnostics: [] Therapeutics: [] Impression: [] Plan: [] Definitive disposition and diagnosis as appropriate pending reevaluation and review of above. Epigastric Pain Score (Numeric/FACES): 6 - Related Data Allergies Allergy/AdvReac Type Severity Reaction Status Date / Time No Known Allergies Allergy Verified 09/21/19 01:40 Home Meds: Home Meds norgestimate-ethinyl estradioL [[place]-Linyah 28 Tablet] 1 each PO DAILY 05/17/19 [History] Jeffery/Vit B12/Folic Acid/Vit B6 [Folic Acid-Vit B6-Vit B12 Tab] 1 each PO DAILY # 30 tablet 09/17/19 [Rx] Acetaminophen/oxyCODONE [Percocet 325-5 MG] 1 tab PO BID #10 tablet 09/22/19 [Rx ] Omeprazole 20 mg PO ACBREAKFAST #10 cap.sr 09/22/19 [Rx] Past Medical History - Past Health History Medical/Surgical History: Denies Medical/Surgical History HEENT History: Reports: None Cardiovascular History: Reports: Blood Clots/VTE/DVT Other Cardiovascular History: blood clot on the liver Respiratory History: Reports: None Gastrointestinal History: Reports: Pancreatitis Genitourinary History: Reports: 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 Musculoskeletal History: Reports: None Neurological History: Reports: None Psychiatric History: Reports: Addiction Other Psychiatric History: ETOH Endocrine/Metabolic History: Reports: None Hematologic History: Reports: None Immunologic History: Reports: None Oncologic (Cancer) History: Reports: None Dermatologic History: Reports: None - Infectious Disease History Infectious Disease History: Reports: None - Past Surgical History Head Surgeries/Procedures: Reports: None HEENT Surgical History: Reports: None Cardiovascular Surgical History: Reports: None Respiratory Surgical History: Reports: None GI Surgical History: Reports: EGD Female Surgical History: Reports: None Endocrine Surgical History: Reports: None Neurological Surgical History: Reports: None Musculoskeletal Surgical History: Reports: None Oncologic Surgical History: Reports: None Dermatological Surgical History: Reports: None Social & Family History - Family History Family Medical History: Noncontributory Cardiac: Reports: [place] - Caffeine Use Caffeine Use: Reports: Soda Other Caffeine Use: 2 Diet Cokes a day - Living Situation & Occupation Living situation: Reports: Single Occupation: Unemployed ED ROS GENERAL - Review of Systems Review Of Systems: Comprehensive ROS is negative, except as noted in HPI. ED EXAM, GI/ABD - Physical Exam Exam: See Below (see h and p) Course - Vital Signs Last Recorded V/S: Last Vital Signs Temp 36.4 C 12/08/19 02:36 Pulse 71 12/08/19 02:36 Resp 16 12/08/19 02:36 BP 151/98 H 12/08/19 02:36 Pulse Ox 99 12/08/19 02:36 - Orders/Labs/Meds Orders: Active Orders 24 hr Category Date Time Status Sodium Chloride 0.9% [Saline Flush] Med 12/07/19 23:21 Active 10 ml FLUSH ASDIRECTED PRN Sodium Chloride 0.9% [Saline Flush] Med 12/07/19 23:21 Active 2.5 ml FLUSH ASDIRECTED PRN Saline Lock Insert [OM.PC] Stat Oth 12/07/19 23:21 Ordered Medication Orders Hydromorphone HCl (Dilaudid) 1 mg IVPUSH Q3H PRN PRN Reason: Pain Last Admin: 12/08/19 01:41 Dose: 1 mg Sodium Chloride (Normal Saline) 1,000 mls @ 200 mls/hr IV ASDIRECTED [facility] Last Admin: 12/08/19 03:01 Dose: 200 mls/hr Ondansetron HCl (Zofran) 4 mg IVPUSH Q4H PRN PRN Reason: Nausea Sodium Chloride (Saline Flush) 10 ml FLUSH ASDIRECTED PRN PRN Reason: Keep Vein Open Sodium Chloride (Saline Flush) 2.5 ml FLUSH ASDIRECTED PRN PRN Reason: Keep Vein Open Thiamine HCl (Vitamin B-1) 100 mg IVPUSH DAILY [facility] Last Admin: 12/08/19 02:18 Dose: 100 mg Labs: Laboratory Tests 12/07/19 12/07/19 12/07/19 Range/Units 23:20 23:20 23:20 WBC 8.77 (4.0-11.0) K/uL RBC 3.59 L (4.30-5.90) M/uL Hgb 11.4 L (12.0-16.0) g/dL Hct 34.7 L (36.0-46.0) % MCV 96.7 (80.0-98.0) fL MCH 31.8 (27.0-32.0) pg MCHC 32.9 (31.0-37.0) g/dL RDW Std Deviation 48.7 (28.0-62.0) fl RDW Coeff of [place] 14 (11.0-15.0) % Plt Count 249 (150-400) K/uL MPV 8.40 (7.40-12.00) fL Neut % (Auto) 46.2 L (48.0-80.0) % Lymph % (Auto) 36.8 (16.0-40.0) % [place] % (Auto) 14.6 (0.0-15.0) % Eos % (Auto) 2.2 (0.0-7.0) % Baso % (Auto) 0.2 (0.0-1.5) % Neut # (Auto) 4.1 (1.4-5.7) K/uL Lymph # (Auto) 3.2 H (0.6-2.4) K/uL [place] # (Auto) 1.3 H (0.0-0.8) K/uL Eos # (Auto) 0.2 (0.0-0.7) K/uL Baso # (Auto) 0.0 (0.0-0.1) K/uL Nucleated RBC % 0.0 /100WBC Nucleated RBCs # 0 K/uL Sodium 140 (136-145) mmol/L Potassium 3.8 (3.5-5.1) mmol/L Chloride 103 (98-107) mmol/L Carbon Dioxide 25.9 (21.0-32.0) mmol/L BUN 6 L (7.0-18.0) mg/dL Creatinine 0.7 (0.6-1.0) mg/dL Est Cr Clr Drug Dosing TNP Estimated GFR (MDRD) > 60.0 ml/min Glucose 108 H (74-106) mg/dL Calcium 8.9 (8.5-10.1) mg/dL Total Bilirubin 0.2 (0.2-1.0) mg/dL AST 29 (15-37) IU/L ALT 23 (14-63) IU/L Alkaline Phosphatase 76 (46-116) U/L Total Protein 7.0 (6.4-8.2) g/dL Albumin 2.5 L (3.4-5.0) g/dL Globulin 4.5 H (2.6-4.0) g/dL Albumin/Globulin Ratio 0.6 L (0.9-1.6) Lipase 680 H (73-393) U/L HCG, Qual NEGATIVE (NEG) Urine Color Urine Appearance Urine pH (5.0-8.0) Ur Specific Leslie (1.001-1.035) Urine Protein (NEGATIVE) mg/dL Urine Glucose (UA) (NEGATIVE) mg/dL Urine Ketones (NEGATIVE) mg/dL Urine Occult Blood (NEGATIVE) Urine Nitrite (NEGATIVE) Urine Bilirubin (NEGATIVE) Urine Urobilinogen (<2.0) EU/dL Ur Leukocyte Esterase (NEGATIVE) Urine RBC (0-2/HPF) Urine WBC (0-5/HPF) Ur Epithelial Cells (NONE-FEW) Urine Bacteria (NEGATIVE) Urine Mucus (NONE-MOD) 12/08/19 Range/Units 01:12 WBC (4.0-11.0) K/uL RBC (4.30-5.90) M/uL Hgb (12.0-16.0) g/dL Hct (36.0-46.0) % MCV (80.0-98.0) fL MCH (27.0-32.0) pg MCHC (31.0-37.0) g/dL RDW Std Deviation (28.0-62.0) fl RDW Coeff of [place] (11.0-15.0) % Plt Count (150-400) K/uL MPV (7.40-12.00) fL Neut % (Auto) (48.0-80.0) % Lymph % (Auto) (16.0-40.0) % [place] % (Auto) (0.0-15.0) % Eos % (Auto) (0.0-7.0) % Baso % (Auto) (0.0-1.5) % Neut # (Auto) (1.4-5.7) K/uL Lymph # (Auto) (0.6-2.4) K/uL [place] # (Auto) (0.0-0.8) K/uL Eos # (Auto) (0.0-0.7) K/uL Baso # (Auto) (0.0-0.1) K/uL Nucleated RBC % /100WBC Nucleated RBCs # K/uL Sodium (136-145) mmol/L Potassium (3.5-5.1) mmol/L Chloride (98-107) mmol/L Carbon Dioxide (21.0-32.0) mmol/L BUN (7.0-18.0) mg/dL Creatinine (0.6-1.0) mg/dL Est Cr Clr Drug Dosing Estimated GFR (MDRD) ml/min Glucose (74-106) mg/dL Calcium (8.5-10.1) mg/dL Total Bilirubin (0.2-1.0) mg/dL AST (15-37) IU/L ALT (14-63) IU/L Alkaline Phosphatase (46-116) U/L Total Protein (6.4-8.2) g/dL Albumin (3.4-5.0) g/dL Globulin (2.6-4.0) g/dL Albumin/Globulin Ratio (0.9-1.6) Lipase (73-393) U/L HCG, Qual (NEG) Urine Color YELLOW Urine Appearance CLEAR Urine pH 7.5 (5.0-8.0) Ur Specific Leslie 1.015 (1.001-1.035) Urine Protein NEGATIVE (NEGATIVE) mg/dL Urine Glucose (UA) NEGATIVE (NEGATIVE) mg/dL Urine Ketones NEGATIVE (NEGATIVE) mg/dL Urine Occult Blood NEGATIVE (NEGATIVE) Urine Nitrite NEGATIVE (NEGATIVE) Urine Bilirubin NEGATIVE (NEGATIVE) Urine Urobilinogen 0.2 (<2.0) EU/dL Ur Leukocyte Esterase TRACE H (NEGATIVE) Urine RBC NONE SEEN (0-2/HPF) Urine WBC 2-4 (0-5/HPF) Ur Epithelial Cells FEW (NONE-FEW) Urine Bacteria 2+ H (NEGATIVE) Urine Mucus LIGHT (NONE-MOD) Meds: Medications Generic Name Dose Route Start Last Admin Trade Name Freq PRN Reason Stop Dose Admin Hydromorphone HCl 1 mg 12/08/19 01:27 12/08/19 01:41 Dilaudid IVPUSH 1 mg Q3H PRN Administration Pain Sodium Chloride 1,000 mls @ 200 mls/hr 12/08/19 01:30 12/08/19 03:01 Normal Saline IV 200 mls/hr ASDIRECTED CARLITOS Administration Ondansetron HCl 4 mg 12/08/19 01:28 Zofran IVPUSH Q4H PRN Nausea Sodium Chloride 10 ml 12/07/19 23:21 Saline Flush FLUSH ASDIRECTED PRN Keep Vein Open Sodium Chloride 2.5 ml 12/07/19 23:21 Saline Flush FLUSH ASDIRECTED PRN Keep Vein Open Thiamine HCl 100 mg 12/08/19 01:30 12/08/19 02:18 Vitamin B-1 IVPUSH 100 mg DAILY CARLITOS Administration Discontinued Medications Generic Name Dose Route Start Last Admin Trade Name Freq PRN Reason Stop Dose Admin Famotidine 20 mg 12/07/19 23:21 12/07/19 23:40 Pepcid IVPUSH 12/07/19 23:22 20 mg ONETIME ONE Administration Hydromorphone HCl 1 mg 12/07/19 23:21 12/07/19 23:40 Dilaudid IVPUSH 12/07/19 23:22 1 mg ONETIME ONE Administration Sodium Chloride 1,000 mls @ 999 mls/hr 12/07/19 23:21 12/07/19 23:40 Normal Saline IV 12/08/19 00:21 999 mls/hr .Bolus ONE Administration Sodium Chloride 1,000 mls @ 150 mls/hr 12/08/19 01:30 Normal Saline IV ASDIRECTED CARLITOS Sodium Chloride 1,000 mls @ 999 mls/hr 12/08/19 01:26 12/08/19 01:41 Normal Saline IV 12/08/19 02:26 999 mls/hr .Bolus ONE Administration Ondansetron HCl 4 mg 12/07/19 23:21 12/07/19 23:40 Zofran IVPUSH 12/07/19 23:22 4 mg ONETIME ONE Administration Departure - Departure Time of Disposition: 02:30 Disposition: Refer to Observation Condition: Good Clinical Impression: Pancreatitis Qualifiers: Chronicity: acute Pancreatitis type: unspecified pancreatitis type Acute pancreatitis complication: unspecified Qualified Code(s): K85.90 - Acute pancreatitis without necrosis or infection, unspecified - Discharge Information Sepsis Event Note (ED) - Evaluation Sepsis Screening Result: No Definite Risk - Focused Exam Vital Signs: Vital Signs Temp Pulse Resp BP Pulse Ox 12/07/19 23:14 36.1 C 83 18 150/104 H 97 - My Orders Last 24 Hours: My Active Orders 12/07/19 23:21 Sodium Chloride 0.9% [Saline Flush] 10 ml FLUSH ASDIRECTED PRN Sodium Chloride 0.9% [Saline Flush] 2.5 ml FLUSH ASDIRECTED PRN Saline Lock Insert [OM.PC] Stat - Assessment/Plan Last 24 Hours: My Active Orders 12/07/19 23:21 Sodium Chloride 0.9% [Saline Flush] 10 ml FLUSH ASDIRECTED PRN Sodium Chloride 0.9% [Saline Flush] 2.5 ml FLUSH ASDIRECTED PRN Saline Lock Insert [OM.PC] Stat
[2019-12-08] MEDS ORDERED: Sodium Chloride 0.9% 1,000 ML IV ONE (01:26)
[2019-12-08] MEDS ORDERED: Ondansetron 4 MG/2 ML SDV IVPUSH PRN (01:28)
[2019-12-08] MEDS ORDERED: Sodium Chloride 0.9% 1,000 ML IV SCH (01:30)
[2019-12-08] MEDS: HYDROmorphone 2 MG/ML Syringe IVPUSH PRN ×8 (01:41→23:55)
[2019-12-08] MEDS: Thiamine 200 MG/2 ML MDV IVPUSH SCH ×2 (02:18→08:58)
[2019-12-08] MEDS: Sodium Chloride 0.9% 1,000 ML IV SCH ×3 (03:01→19:27)
[2019-12-08 06:39] LABS: BLOOD UREA NITROGEN,BUN 5 mg/dL (7.0-18.0); CARBON DIOXIDE,CO2 24.5 mmol/L (21.0-32.0); CHLORIDE,CL 108 mmol/L (98-107); GLUCOSE RANDOM 102 mg/dL (74-106); POTASSIUM,K 3.7 mmol/L (3.5-5.1); SODIUM,NA 142 mmol/L (136-145)
[2019-12-08] MEDS ORDERED: cefTRIAXone 1 GM Vial IVPUSH ONE (08:09)
[2019-12-08] MEDS ORDERED: cefTRIAXone 1 GM in Premix Bag 1 BAG IV ONE (08:15)
[2019-12-08] MEDS: NORGESTIMATE ETHINYL ESTRADIOL PO SCH (10:25)
--- NOTE | 2019-12-08 12:45 | PCM.HP.2 ---
H&P History of Present Illness - General Date of Service: 12/08/19 Admit Problem/Dx: Admission Diagnosis/Problem Admission Diagnosis/Problem Pancreatitis Source of Information: Patient History Limitations: Reports: No Limitations - History of Present Illness Initial Comments - Free Text/Narative: 34 y. o female w. significant PMH of multiple episodes of pancreatitis w. stable pseudocyst formation; daily ETOH abuse and tobacco; presenting last night for worsening abd. pain. Pt. seen at [facility] 1-week prior for similar symptoms; images and hx. suggested another pancreatic flare up. pt. was discharged from facility 3 days later on Wednesday w. PO oxycodone. Pt. mentions pain medication ran out and pain was not improving; presented to ED for an acute on chronic pancreatic flare. P.t denies drinking ETOH since her admission in [facility] [place]. Denies any fevers, chills, Backaches, recent trauma and or ilicit drug use. Epigastric Pain Score (Numeric/FACES): 6 - Related Data Allergies/Adverse Reactions: Allergies Allergy/AdvReac Type Severity Reaction Status Date / Time No Known Allergies Allergy Verified 12/08/19 04:54 Home Medications: Home Meds norgestimate-ethinyl estradioL [[place]-Linyah 28 Tablet] 1 each PO DAILY 05/17/19 [History] Jeffery/Vit B12/Folic Acid/Vit B6 [Folic Acid-Vit B6-Vit B12 Tab] 1 each PO DAILY # 30 tablet 09/17/19 [Rx] Acetaminophen/oxyCODONE [Percocet 325-5 MG] 1 tab PO BID #10 tablet 09/22/19 [Rx ] Omeprazole 20 mg PO ACBREAKFAST #10 cap.sr 09/22/19 [Rx] Past Medical History - Past Health History Medical/Surgical History: Denies Medical/Surgical History HEENT History: Reports: None Cardiovascular History: Reports: Blood Clots/VTE/DVT Other Cardiovascular History: blood clot on the liver Respiratory History: Reports: None Gastrointestinal History: Reports: Pancreatitis Genitourinary History: Reports: None 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 APPLICATOR 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: Reports: None Musculoskeletal History: Reports: None Neurological History: Reports: None Psychiatric History: Reports: Addiction Other Psychiatric History: ETOH Endocrine/Metabolic History: Reports: None Hematologic History: Reports: None Immunologic History: Reports: None Oncologic (Cancer) History: Reports: None Dermatologic History: Reports: None - Infectious Disease History Infectious Disease History: Reports: None - Past Surgical History Head Surgeries/Procedures: Reports: None HEENT Surgical History: Reports: None Cardiovascular Surgical History: Reports: None Respiratory Surgical History: Reports: None GI Surgical History: Reports: EGD Female Surgical History: Reports: None Endocrine Surgical History: Reports: None Neurological Surgical History: Reports: None Musculoskeletal Surgical History: Reports: None Oncologic Surgical History: Reports: None Dermatological Surgical History: Reports: None Social & Family History - Family History Family Medical History: Noncontributory Cardiac: Reports: [place] - Tobacco Use Smoking Status *Q: Never Smoker - Caffeine Use Caffeine Use: Reports: Soda Other Caffeine Use: 2 Diet Cokes a day - Alcohol Use Days Per Week of Alcohol Use: 4 Number of Drinks Per Day: 4 Total Drinks Per Week: 16 Date of Last Drink: 12/01/19 - Recreational Drug Use Recreational Drug Use: No - Living Situation & Occupation Living situation: Reports: Single Occupation: Unemployed H&P Review of Systems - Review of Systems: Review Of Systems: See Below General: Denies: Fever, Chills, Malaise HEENT: Reports: No Symptoms Pulmonary: Reports: No Symptoms Cardiovascular: Reports: No Symptoms Gastrointestinal: Reports: Abdominal Pain, Decreased Appetite, Nausea. Denies: Black Stool, Diarrhea, Hematemesis Genitourinary: Reports: No Symptoms Musculoskeletal: Reports: No Symptoms Skin: Reports: No Symptoms Psychiatric: Reports: No Symptoms Neurological: Reports: No Symptoms Exam - Exam Exam: See Below - Vital Signs Vital Signs: Last Vital Signs Temp 96.2 F L 12/08/19 12:11 Pulse 77 12/08/19 12:11 Resp 17 12/08/19 08:00 BP 141/77 H 12/08/19 12:11 Pulse Ox 95 12/08/19 08:00 Weight: 74.435 kg - Exam Quality Assessment: No: Supplemental Oxygen General: Alert, Oriented, Cooperative HEENT: EOMI Neck: Supple, Trachea Midline Lungs: Clear to Auscultation, Normal Respiratory Effort Cardiovascular: Regular Rate, Regular Rhythm GI/Abdominal Exam: Soft, Other (diffuse tenderness w. deep aplpation; no rebound tenderness. no organomegaly ) Back Exam: Full Range of Motion Skin: Warm Neurological: Cranial Nerves Intact Neuro Extensive - Mental Status: Alert, Oriented x3, Normal Mood/Affect Psychiatric: Alert, Normal Affect - Patient Data Lab Results Last 24 hrs: Laboratory Results - last 24 hr 12/07/19 12/07/19 12/07/19 Range/Units 23:20 23:20 23:20 WBC 8.77 (4.0-11.0) K/uL RBC 3.59 L (4.30-5.90) M/uL Hgb 11.4 L (12.0-16.0) g/dL Hct 34.7 L (36.0-46.0) % MCV 96.7 (80.0-98.0) fL MCH 31.8 (27.0-32.0) pg MCHC 32.9 (31.0-37.0) g/dL RDW Std Deviation 48.7 (28.0-62.0) fl RDW Coeff of [place] 14 (11.0-15.0) % Plt Count 249 (150-400) K/uL MPV 8.40 (7.40-12.00) fL Neut % (Auto) 46.2 L (48.0-80.0) % Lymph % (Auto) 36.8 (16.0-40.0) % [place] % (Auto) 14.6 (0.0-15.0) % Eos % (Auto) 2.2 (0.0-7.0) % Baso % (Auto) 0.2 (0.0-1.5) % Neut # (Auto) 4.1 (1.4-5.7) K/uL Lymph # (Auto) 3.2 H (0.6-2.4) K/uL [place] # (Auto) 1.3 H (0.0-0.8) K/uL Eos # (Auto) 0.2 (0.0-0.7) K/uL Baso # (Auto) 0.0 (0.0-0.1) K/uL Nucleated RBC % 0.0 /100WBC Nucleated RBCs # 0 K/uL Sodium 140 (136-145) mmol/L Potassium 3.8 (3.5-5.1) mmol/L Chloride 103 (98-107) mmol/L Carbon Dioxide 25.9 (21.0-32.0) mmol/L BUN 6 L (7.0-18.0) mg/dL Creatinine 0.7 (0.6-1.0) mg/dL Est Cr Clr Drug Dosing TNP Estimated GFR (MDRD) > 60.0 ml/min Glucose 108 H (74-106) mg/dL Calcium 8.9 (8.5-10.1) mg/dL Total Bilirubin 0.2 (0.2-1.0) mg/dL AST 29 (15-37) IU/L ALT 23 (14-63) IU/L Alkaline Phosphatase 76 (46-116) U/L Total Protein 7.0 (6.4-8.2) g/dL Albumin 2.5 L (3.4-5.0) g/dL Globulin 4.5 H (2.6-4.0) g/dL Albumin/Globulin Ratio 0.6 L (0.9-1.6) Lipase 680 H (73-393) U/L HCG, Qual NEGATIVE (NEG) Urine Color Urine Appearance Urine pH (5.0-8.0) Ur Specific [place] (1.001-1.035) Urine Protein (NEGATIVE) mg/dL Urine Glucose (UA) (NEGATIVE) mg/dL Urine Ketones (NEGATIVE) mg/dL Urine Occult Blood (NEGATIVE) Urine Nitrite (NEGATIVE) Urine Bilirubin (NEGATIVE) Urine Urobilinogen (<2.0) EU/dL Ur Leukocyte Esterase (NEGATIVE) Urine RBC (0-2/HPF) Urine WBC (0-5/HPF) Ur Epithelial Cells (NONE-FEW) Urine Bacteria (NEGATIVE) Urine Mucus (NONE-MOD) 12/08/19 12/08/19 12/08/19 Range/Units 01:12 05:58 05:58 WBC 6.07 (4.0-11.0) K/uL RBC 3.24 L (4.30-5.90) M/uL Hgb 10.2 L (12.0-16.0) g/dL Hct 31.6 L (36.0-46.0) % MCV 97.5 (80.0-98.0) fL MCH 31.5 (27.0-32.0) pg MCHC 32.3 (31.0-37.0) g/dL RDW Std Deviation 49.1 (28.0-62.0) fl RDW Coeff of [place] 14 (11.0-15.0) % Plt Count 204 (150-400) K/uL MPV 8.30 (7.40-12.00) fL Neut % (Auto) 41.7 L (48.0-80.0) % Lymph % (Auto) 39.9 (16.0-40.0) % [place] % (Auto) 16.0 H (0.0-15.0) % Eos % (Auto) 2.1 (0.0-7.0) % Baso % (Auto) 0.3 (0.0-1.5) % Neut # (Auto) 2.5 (1.4-5.7) K/uL Lymph # (Auto) 2.4 (0.6-2.4) K/uL [place] # (Auto) 1.0 H (0.0-0.8) K/uL Eos # (Auto) 0.1 (0.0-0.7) K/uL Baso # (Auto) 0.0 (0.0-0.1) K/uL Nucleated RBC % 0.0 /100WBC Nucleated RBCs # 0 K/uL Sodium 142 (136-145) mmol/L Potassium 3.7 (3.5-5.1) mmol/L Chloride 108 H (98-107) mmol/L Carbon Dioxide 24.5 (21.0-32.0) mmol/L BUN 5 L (7.0-18.0) mg/dL Creatinine 0.6 (0.6-1.0) mg/dL Est Cr Clr Drug Dosing 115.16 Estimated GFR (MDRD) > 60.0 ml/min Glucose 102 (74-106) mg/dL Calcium 7.5 L (8.5-10.1) mg/dL Total Bilirubin 0.2 (0.2-1.0) mg/dL AST 24 (15-37) IU/L ALT 19 (14-63) IU/L Alkaline Phosphatase 60 (46-116) U/L Total Protein 5.6 L (6.4-8.2) g/dL Albumin 2.6 L (3.4-5.0) g/dL Globulin 3.6 (2.6-4.0) g/dL Albumin/Globulin Ratio 0.8 L (0.9-1.6) Lipase (73-393) U/L HCG, Qual (NEG) Urine Color YELLOW Urine Appearance CLEAR Urine pH 7.5 (5.0-8.0) Ur Specific [place] 1.015 (1.001-1.035) Urine Protein NEGATIVE (NEGATIVE) mg/dL Urine Glucose (UA) NEGATIVE (NEGATIVE) mg/dL Urine Ketones NEGATIVE (NEGATIVE) mg/dL Urine Occult Blood NEGATIVE (NEGATIVE) Urine Nitrite NEGATIVE (NEGATIVE) Urine Bilirubin NEGATIVE (NEGATIVE) Urine Urobilinogen 0.2 (<2.0) EU/dL Ur Leukocyte Esterase TRACE H (NEGATIVE) Urine RBC NONE SEEN (0-2/HPF) Urine WBC 2-4 (0-5/HPF) Ur Epithelial Cells FEW (NONE-FEW) Urine Bacteria 2+ H (NEGATIVE) Urine Mucus LIGHT (NONE-MOD) Result Diagrams: 12/08/19 05:58 12/08/19 05:58 Sepsis Event Note - Evaluation Sepsis Screening Result: No Definite Risk - Focused Exam Vital Signs: Vital Signs Temp Pulse Resp BP Pulse Ox 12/08/19 12:11 96.2 F L 77 141/77 H 12/08/19 08:00 98.3 F 76 17 149/97 H 95 12/08/19 04:00 97.6 F 66 16 148/101 H 96 12/08/19 02:36 97.6 F 71 16 151/98 H 99 12/08/19 01:30 79 16 151/101 H 98 Date Exam was Performed: 12/08/19 Time Exam was Performed: 13:00 Problem List Initiated/Reviewed/Updated: Yes Orders Last 24hrs: Active Orders 24 hr Category Date Time Status Admission Status [Patient Status] [ADT] Stat ADT 12/08/19 01:24 Active Nothing per Oral Now Diet [DIET] Diet 12/08/19 Breakfast Active HYDROmorphone [Dilaudid] Med 12/08/19 01:27 Active 1 mg IVPUSH Q3H PRN Omeprazole Med 12/09/19 07:30 Active 20 mg PO ACBREAKFAST Ondansetron [Zofran] Med 12/08/19 01:28 Active 4 mg IVPUSH Q4H PRN Patient's Own Medication [Ptom] Med 12/08/19 09:00 Active 1 each PO DAILY Sodium Chloride 0.9% [Normal Saline] 1,000 ml Med 12/08/19 01:30 Active IV ASDIRECTED Sodium Chloride 0.9% [Saline Flush] Med 12/07/19 23:21 Active 10 ml FLUSH ASDIRECTED PRN Sodium Chloride 0.9% [Saline Flush] Med 12/07/19 23:21 Active 2.5 ml FLUSH ASDIRECTED PRN Thiamine [Vitamin B-1] Med 12/08/19 01:30 Active 100 mg IVPUSH DAILY Saline Lock Insert [OM.PC] Stat Oth 12/07/19 23:21 Ordered Medication Orders Hydromorphone HCl (Dilaudid) 1 mg IVPUSH Q3H PRN PRN Reason: Pain Last Admin: 12/08/19 11:21 Dose: 1 mg Admin: 12/08/19 08:21 Dose: 1 mg Admin: 12/08/19 04:35 Dose: 1 mg Admin: 12/08/19 01:41 Dose: 1 mg Sodium Chloride (Normal Saline) 1,000 mls @ 200 mls/hr IV ASDIRECTED [facility] Last Admin: 12/08/19 08:20 Dose: 200 mls/hr Infusion: 12/08/19 08:01 Dose: 200 mls/hr Admin: 12/08/19 03:01 Dose: 200 mls/hr Omeprazole (Omeprazole) 20 mg PO ACBREAKFAST [facility] Ondansetron HCl (Zofran) 4 mg IVPUSH Q4H PRN PRN Reason: Nausea Norgestimate-Ethinyl Estradiol [[place]- Linyah 28 Tablet] 1 1 each PO DAILY [facility] Last Admin: 12/08/19 10:25 Dose: Not Given Sodium Chloride (Saline Flush) 10 ml FLUSH ASDIRECTED PRN PRN Reason: Keep Vein Open Sodium Chloride (Saline Flush) 2.5 ml FLUSH ASDIRECTED PRN PRN Reason: Keep Vein Open Thiamine HCl (Vitamin B-1) 100 mg IVPUSH DAILY [facility] Last Admin: 12/08/19 08:58 Dose: 100 mg Admin: 12/08/19 02:18 Dose: 100 mg Assessment/Plan Comment:: Assessment: 1. Acute on chronic pancreatitis secondary to ETOH abuse 2. Pancreatic Pseudocyst 3. Normocytic anemia Plan Admit to obs. Full code. NPO except ice chips. Heparin 5000 q12. Omeprazole 20 bid. 1. Received 2 liter bolus in ED; continue NS at 200 cc/hr. NPO except ice chips Pain control: Dilaudid 1 mg [id number] Denies any UTI symptoms at this time. 2. Mildly +UA; no UTI symptoms; awaiting culture; Given 1 dose of CTX today. Will monitor. Awaiting records from outside facility
[2019-12-08] MEDS: Folic Acid 1 MG Tab PO SCH (15:03)
[2019-12-08] MEDS: Heparin Sodium 5,000 Units/ML Vial SUBCUT SCH ×2 (15:03→21:00)
[2019-12-09] MEDS: Sodium Chloride 0.9% 1,000 ML IV SCH ×2 (00:23→05:30)
[2019-12-09] MEDS: HYDROmorphone 2 MG/ML Syringe IVPUSH PRN ×2 (03:05→06:06)
[2019-12-09 06:57] LABS: BLOOD UREA NITROGEN,BUN 1 mg/dL (7.0-18.0); CARBON DIOXIDE,CO2 27.7 mmol/L (21.0-32.0); CHLORIDE,CL 105 mmol/L (98-107); GLUCOSE RANDOM 101 mg/dL (74-106); POTASSIUM,K 3.4 mmol/L (3.5-5.1); SODIUM,NA 140 mmol/L (136-145)
[2019-12-09] MEDS ORDERED: Omeprazole 20 MG Cap.CR PO SCH (07:30)
[2019-12-09] MEDS ORDERED: HYDROmorphone 1 MG/ML Syringe IVPUSH PRN (07:40)
[2019-12-09] MEDS ORDERED: Potassium Chloride 20 MEQ Tab.ER PO ONE (07:43)
[2019-12-09] MEDS: Folic Acid 1 MG Tab PO SCH (08:56)
[2019-12-09] MEDS: Heparin Sodium 5,000 Units/ML Vial SUBCUT SCH (08:57)
[2019-12-09] MEDS: Thiamine 200 MG/2 ML MDV IVPUSH SCH (09:00)
[2019-12-09] MEDS: NORGESTIMATE ETHINYL ESTRADIOL PO SCH (09:02)
--- NOTE | 2019-12-09 11:52 | PCM.DCSUM1 ---
<Nahun Ceballos - Last Filed: 12/09/19 13:30> Discharge Summary - Hospital Course Free Text/Narrative:: Discharge: pt .admitted as observation after experiencing rebound abdominal pain for a recently diagnosed acute on chronic pancreatic flare up. Recently seen in [facility] for abd. pain , w. pancreatitis subsequently diagnosed on CT abdomen/pelvis. Previous records obtained and scanned into chart. pt was discharge d from previous facility and given oxycodone. Pt. however states when oxycodone was completed her pain returned. Proceeded to hospital. Repeat Liapse and labs here suggested acute on chronic pancreatitis; Dilaudid used for pain control, IV fluids and pt. made NPO. Following day pt. appetite returned w. subsequent reduction of her pain medication. Pt tolerated advancement of diet and requested to go home. Repeat evaluation; discharged placed. Advised pt to follow up with GI in [place] (as has been advised on other previous visits) to discuss options for acute on chronic pancreatitis, cyst formation and other relevant pathologies.Electrolyes repelted as needed. Advised to avoid ETOH at all cost as she is high risk for further damage. pt understood and agreed. - Discharge Data Discharge Date: 12/09/19 Discharge Disposition: Home, Self-Care 01 Condition: Fair - Referral to Home Health Primary Care Physician: Jarrett Harper MD - Patient Instructions Diet: No Alcoholic Beverages, GI Soft/Low Residue/Low Fiber Notify Provider of: Fever, Nausea and/or Vomiting - Discharge Plan Home Medications: Home Meds norgestimate-ethinyl estradioL [[place]-Linyah 28 Tablet] 1 each PO DAILY 05/17/19 [History] Jeffery/Vit B12/Folic Acid/Vit B6 [Folic Acid-Vit B6-Vit B12 Tab] 1 each PO DAILY # 30 tablet 09/17/19 [Rx] Acetaminophen/oxyCODONE [Percocet 325-5 MG] 1 tab PO BID #10 tablet 09/22/19 [Rx ] Omeprazole 20 mg PO ACBREAKFAST #10 cap.sr 09/22/19 [Rx] Folic Acid 1 mg PO DAILY tablet 12/09/19 [Rx] Patient Handouts: Acute Pancreatitis, [id number] Referrals: Jarrett Harper MD [Primary Care Provider] - 12/19/19 9:00 am - Discharge Summary/Plan Comment DC Time >30 min.: No - Patient Data Vitals - Most Recent: Last Vital Signs Temp 97.5 F 12/09/19 07:35 Pulse 86 12/09/19 07:35 Resp 14 12/09/19 07:35 BP 128/91 H 12/09/19 07:35 Pulse Ox 98 12/09/19 07:35 Weight - Most Recent: 74.435 kg I&O - Last 24 hours: Intake & Output 12/08/19 12/09/19 12/09/19 22:59 06:59 14:59 Intake Total 2402 0 2866 Output Total 900 Balance 2402 -900 2866 Lab Results - Last 24 hrs: Laboratory Results - last 24 hr 12/08/19 12/09/19 12/09/19 Range/Units 14:23 06:00 06:00 WBC 6.69 (4.0-11.0) K/uL RBC 3.66 L (4.30-5.90) M/uL Hgb 11.3 L (12.0-16.0) g/dL Hct 35.9 L (36.0-46.0) % MCV 98.1 H (80.0-98.0) fL MCH 30.9 (27.0-32.0) pg MCHC 31.5 (31.0-37.0) g/dL RDW Std Deviation 49.0 (28.0-62.0) fl RDW Coeff of [place] 14 (11.0-15.0) % Plt Count 278 (150-400) K/uL MPV 8.50 (7.40-12.00) fL Neut % (Auto) 38.6 L (48.0-80.0) % Lymph % (Auto) 45.0 H (16.0-40.0) % [place] % (Auto) 13.3 (0.0-15.0) % Eos % (Auto) 2.7 (0.0-7.0) % Baso % (Auto) 0.4 (0.0-1.5) % Neut # (Auto) 2.6 (1.4-5.7) K/uL Lymph # (Auto) 3.0 H (0.6-2.4) K/uL [place] # (Auto) 0.9 H (0.0-0.8) K/uL Eos # (Auto) 0.2 (0.0-0.7) K/uL Baso # (Auto) 0.0 (0.0-0.1) K/uL Nucleated RBC % 0.0 /100WBC Nucleated RBCs # 0 K/uL Lactate 0.3 (0.20-2.00) mmol/L Sodium 140 (136-145) mmol/L Potassium 3.4 L (3.5-5.1) mmol/L Chloride 105 (98-107) mmol/L Carbon Dioxide 27.7 (21.0-32.0) mmol/L BUN 1 L (7.0-18.0) mg/dL Creatinine 0.5 L (0.6-1.0) mg/dL Est Cr Clr Drug Dosing 138.19 mL/min Estimated GFR (MDRD) > 60.0 ml/min Glucose 101 (74-106) mg/dL Calcium 7.9 L (8.5-10.1) mg/dL Phosphorus 3.1 (2.6-4.7) mg/dL Magnesium 2.0 (1.8-2.4) mg/dL Total Bilirubin 0.2 (0.2-1.0) mg/dL AST 30 (15-37) IU/L ALT 31 (14-63) IU/L Alkaline Phosphatase 69 (46-116) U/L Total Protein 6.7 (6.4-8.2) g/dL Albumin 3.1 L (3.4-5.0) g/dL Globulin 3.6 (2.6-4.0) g/dL Albumin/Globulin Ratio 0.9 (0.9-1.6) Vitamin B12 (193-986) pg/mL 12/09/19 Range/Units 06:00 WBC (4.0-11.0) K/uL RBC (4.30-5.90) M/uL Hgb (12.0-16.0) g/dL Hct (36.0-46.0) % MCV (80.0-98.0) fL MCH (27.0-32.0) pg MCHC (31.0-37.0) g/dL RDW Std Deviation (28.0-62.0) fl RDW Coeff of [place] (11.0-15.0) % Plt Count (150-400) K/uL MPV (7.40-12.00) fL Neut % (Auto) (48.0-80.0) % Lymph % (Auto) (16.0-40.0) % [place] % (Auto) (0.0-15.0) % Eos % (Auto) (0.0-7.0) % Baso % (Auto) (0.0-1.5) % Neut # (Auto) (1.4-5.7) K/uL Lymph # (Auto) (0.6-2.4) K/uL [place] # (Auto) (0.0-0.8) K/uL Eos # (Auto) (0.0-0.7) K/uL Baso # (Auto) (0.0-0.1) K/uL Nucleated RBC % /100WBC Nucleated RBCs # K/uL Lactate (0.20-2.00) mmol/L Sodium (136-145) mmol/L Potassium (3.5-5.1) mmol/L Chloride (98-107) mmol/L Carbon Dioxide (21.0-32.0) mmol/L BUN (7.0-18.0) mg/dL Creatinine (0.6-1.0) mg/dL Est Cr Clr Drug Dosing mL/min Estimated GFR (MDRD) ml/min Glucose (74-106) mg/dL Calcium (8.5-10.1) mg/dL Phosphorus (2.6-4.7) mg/dL Magnesium (1.8-2.4) mg/dL Total Bilirubin (0.2-1.0) mg/dL AST (15-37) IU/L ALT (14-63) IU/L Alkaline Phosphatase (46-116) U/L Total Protein (6.4-8.2) g/dL Albumin (3.4-5.0) g/dL Globulin (2.6-4.0) g/dL Albumin/Globulin Ratio (0.9-1.6) Vitamin B12 392 (193-986) pg/mL Med Orders - Current: Current Medications Folic Acid (Folic Acid) 1 mg PO DAILY [facility] Last Admin: 12/09/19 08:56 Dose: 1 mg Heparin Sodium (Porcine) (Heparin Sodium) 5,000 units SUBCUT BID [facility] Last Admin: 12/09/19 08:57 Dose: 5,000 units Omeprazole (Omeprazole) 20 mg PO ACBREAKFAST [facility] Last Admin: 12/09/19 07:23 Dose: 20 mg Ondansetron HCl (Zofran) 4 mg IVPUSH Q4H PRN PRN Reason: Nausea Norgestimate-Ethinyl Estradiol [[place]- Linyah 28 Tablet] 1 1 each PO DAILY [facility] Last Admin: 12/09/19 09:02 Dose: Not Given Sodium Chloride (Saline Flush) 10 ml FLUSH ASDIRECTED PRN PRN Reason: Keep Vein Open Sodium Chloride (Saline Flush) 2.5 ml FLUSH ASDIRECTED PRN PRN Reason: Keep Vein Open Thiamine HCl (Vitamin B-1) 100 mg IVPUSH DAILY [facility] Last Admin: 12/09/19 09:00 Dose: 100 mg Discontinued Medications Ceftriaxone Sodium (Rocephin) 1 gm IVPUSH ONETIME ONE Stop: 12/08/19 08:10 Last Admin: 12/08/19 15:12 Dose: Not Given Famotidine (Pepcid) 20 mg IVPUSH ONETIME ONE Stop: 12/07/19 23:22 Last Admin: 12/07/19 23:40 Dose: 20 mg Hydromorphone HCl (Dilaudid) 1 mg IVPUSH ONETIME ONE Stop: 12/07/19 23:22 Last Admin: 12/07/19 23:40 Dose: 1 mg Hydromorphone HCl (Dilaudid) 1 mg IVPUSH Q3H PRN PRN Reason: Pain Last Admin: 12/09/19 06:06 Dose: 1 mg Hydromorphone HCl (Dilaudid) 1 mg IVPUSH Q4H PRN PRN Reason: Pain Last Admin: 12/09/19 09:01 Dose: 1 mg Sodium Chloride (Normal Saline) 1,000 mls @ 999 mls/hr IV .Bolus ONE Stop: 12/08/19 00:21 Last Admin: 12/07/19 23:40 Dose: 999 mls/hr Sodium Chloride (Normal Saline) 1,000 mls @ 150 mls/hr IV ASDIRECTED [facility] Sodium Chloride (Normal Saline) 1,000 mls @ 999 mls/hr IV .Bolus ONE Stop: 12/08/19 02:26 Last Admin: 12/08/19 01:41 Dose: 999 mls/hr Sodium Chloride (Normal Saline) 1,000 mls @ 200 mls/hr IV ASDIRECTED [facility] Last Admin: 12/09/19 05:30 Dose: 200 mls/hr Ceftriaxone Sodium/Dextrose 1 (gm/ Premix) 50 mls @ 100 mls/hr IV ONETIME ONE Stop: 12/08/19 08:44 Last Admin: 12/08/19 08:53 Dose: 100 mls/hr Ondansetron HCl (Zofran) 4 mg IVPUSH ONETIME ONE Stop: 12/07/19 23:22 Last Admin: 12/07/19 23:40 Dose: 4 mg Potassium Chloride (Klor-Con M20) 40 meq PO ONETIME ONE Stop: 12/09/19 07:44 Last Admin: 12/09/19 08:56 Dose: 40 meq <Jeff Isaasc - Last Filed: 12/11/19 14:05> Discharge Summary - Referral to Home Health Primary Care Physician: Jarrett Harper MD - Patient Data Vitals - Most Recent: Last Vital Signs Temp 36.4 C 12/09/19 07:35 Pulse 86 12/09/19 07:35 Resp 14 12/09/19 07:35 BP 128/91 H 12/09/19 07:35 Pulse Ox 98 12/09/19 07:35 Med Orders - Current: Current Medications Discontinued Medications Ceftriaxone Sodium (Rocephin) 1 gm IVPUSH ONETIME ONE Stop: 12/08/19 08:10 Last Admin: 12/08/19 15:12 Dose: Not Given Famotidine (Pepcid) 20 mg IVPUSH ONETIME ONE Stop: 12/07/19 23:22 Last Admin: 12/07/19 23:40 Dose: 20 mg Folic Acid (Folic Acid) 1 mg PO DAILY [facility] Last Admin: 12/09/19 08:56 Dose: 1 mg Heparin Sodium (Porcine) (Heparin Sodium) 5,000 units SUBCUT BID [facility] Last Admin: 12/09/19 08:57 Dose: 5,000 units Hydromorphone HCl (Dilaudid) 1 mg IVPUSH ONETIME ONE Stop: 12/07/19 23:22 Last Admin: 12/07/19 23:40 Dose: 1 mg Hydromorphone HCl (Dilaudid) 1 mg IVPUSH Q3H PRN PRN Reason: Pain Last Admin: 12/09/19 06:06 Dose: 1 mg Hydromorphone HCl (Dilaudid) 1 mg IVPUSH Q4H PRN PRN Reason: Pain Last Admin: 12/09/19 09:01 Dose: 1 mg Sodium Chloride (Normal Saline) 1,000 mls @ 999 mls/hr IV .Bolus ONE Stop: 12/08/19 00:21 Last Admin: 12/07/19 23:40 Dose: 999 mls/hr Sodium Chloride (Normal Saline) 1,000 mls @ 150 mls/hr IV ASDIRECTED [facility] Sodium Chloride (Normal Saline) 1,000 mls @ 999 mls/hr IV .Bolus ONE Stop: 12/08/19 02:26 Last Admin: 12/08/19 01:41 Dose: 999 mls/hr Sodium Chloride (Normal Saline) 1,000 mls @ 200 mls/hr IV ASDIRECTED [facility] Last Admin: 12/09/19 05:30 Dose: 200 mls/hr Ceftriaxone Sodium/Dextrose 1 (gm/ Premix) 50 mls @ 100 mls/hr IV ONETIME ONE Stop: 12/08/19 08:44 Last Admin: 12/08/19 08:53 Dose: 100 mls/hr Omeprazole (Omeprazole) 20 mg PO ACBREAKFAST [facility] Last Admin: 12/09/19 07:23 Dose: 20 mg Ondansetron HCl (Zofran) 4 mg IVPUSH ONETIME ONE Stop: 12/07/19 23:22 Last Admin: 12/07/19 23:40 Dose: 4 mg Ondansetron HCl (Zofran) 4 mg IVPUSH Q4H PRN PRN Reason: Nausea Norgestimate-Ethinyl Estradiol [[place]- [place]iny[place] 28 Tablet] 1 1 each PO DAILY [facility] Last Admin: 12/09/19 09:02 Dose: Not Given Potassium Chloride (Klor-Con M20) 40 meq PO ONETIME ONE Stop: 12/09/19 07:44 Last Admin: 12/09/19 08:56 Dose: 40 meq Sodium Chloride (Saline Flush) 10 ml FLUSH ASDIRECTED PRN PRN Reason: Keep Vein Open Sodium Chloride (Saline Flush) 2.5 ml FLUSH ASDIRECTED PRN PRN Reason: Keep Vein Open Thiamine HCl (Vitamin B-1) 100 mg IVPUSH DAILY [facility] Last Admin: 12/09/19 09:00 Dose: 100 mg - Free Text/Narrative Note: I have seen and evaluated the patient with the resident. I have discussed findings and treatment plan with resident. I agree with the assessment and plan as outlined in the following note.
== END 2019-12-09 12:20 | disposition home or self-care (01) ==
LOC: MW.ED 22:20 → MW.MS 12-08 01:24
PROVIDERS: ADMIT Internal Medicine; ATTEND Internal Medicine
DX: K85.20 Alcohol induced acute pancreatitis without necrosis or infection (principal); K86.3 Pseudocyst of pancreas; K86.0 Alcohol-induced chronic pancreatitis; F10.20 Alcohol dependence, uncomplicated; D64.9 Anemia, unspecified; Z79.899 Other long term (current) drug therapy
CPT/HCPCS: 36415; 80053; 81001; 82607; 83605; 83690; 83735; 84100; 84703; 85025; 96361; 96374; 96375; 96376; 99285; A9270; J0696; J1170; J1644; J2405; J3411; J7030; S0028; 96372; 99283; G0378; J3490

== ENCOUNTER 2020-04-16 00:55 | Inpatient (IN) | payer OTHER ==
[2020-04-16] MEDS ORDERED: HYDROmorphone 1 MG/ML Syringe IVPUSH ONE (01:13)
[2020-04-16] MEDS ORDERED: Dextrose 5%-Lactated Ringers 1,000 ML IV SCH (01:15)
[2020-04-16] MEDS ORDERED: Ondansetron 4 MG/2 ML SDV IVPUSH ONE (01:15)
--- NOTE | 2020-04-16 01:46 | EDM.PDOC ---
ED HPI GENERAL MEDICAL PROBLEM - General Chief Complaint: Abdominal Pain Stated Complaint: ABDOMINAL PAIN Time Seen by Provider: 04/16/20 01:13 - History of Present Illness INITIAL COMMENTS - FREE TEXT/NARRATIVE: CHIEF COMPLAINT(S): Abdominal pain HISTORY OF PRESENT ILLNESS: This is a 34-year-old woman with a past medical history of alcohol abuse and pancreatitis who comes to the emergency department with a chief complaint of abdominal pain. The patient states that for approximately 1 day now she has been experiencing abdominal pain located in the upper part of her abdomen in a bandlike distribution radiating to her back. She describes the pain as sharp and constant rated 10 out of 10. She states that she does have some associated nausea but denies any vomiting. She states that she did take a hot shower and took a Percocet earlier today which did help relieve the symptoms. She denies any aggravating factors. She states this feels similar to her prior pancreatitis episodes. She denies any blood in her stool, vaginal bleeding, vaginal discharge. REVIEW OF SYSTEMS: Constitutional: Denies fever, chills. Eyes: Denies eye pain Ears, Nose, Mouth, & Throat: Denies earache Cardiovascular: Denies chest pain Respiratory: Denies shortness of breath Gastrointestinal: Positive for abdominal pain and nausea. Denies vomiting, diarrhea, hematochezia, melena genitourinary: Denies hematuria Skin:Denies a rash Neurological: Denies blurred vision Psychiatric: Denies depression PAST MEDICAL HISTORY: As per history of present illness and as reviewed below otherwise noncontributory. SURGICAL HISTORY: As per history of present illness and as reviewed below otherwise noncontributory. LMP: 2 weeks prior to arrival. On control SOCIAL HISTORY: As per history of present illness and as reviewed below o aleawise noncontributory. FAMILY HISTORY: As per history of present illness and as reviewed below otherwise noncontributory. EXAMINATION OF ORGAN SYSTEMS/BODY AREAS: Constitutional: Blood pressure was 148/106, heart rate 100, respiratory rate 17 with an oxygen saturation of 98% on room air. Temperature 35.7 General: Anxious appearing woman sitting up on the stretcher swinging her legs. Psychiatric: Appears anxious Eyes: No scleral icterus or conjunctival erythema ENMT: Moist mucous membranes. No pharyngeal erythema Cardiovascular: Regular, rate, and rythym. No gallops, murmurs, or rubs. Bilateral upper extremity pulses symmetric and intact. No peripheral edema. No JVD. Respiratory: Lungs clear to auscultation bilaterally. No wheezes, rales, or rhonchi. Gastrointestinal: Soft, moderate tenderness to palpation in the epigastric and left upper quadrant region. Nondistended. No rebound or guarding. Normoactive bowel sounds Genitourinary: No suprapubic tenderness Musculoskeletal: Normal range of motion. No cervical, thoracic, or lumbar midline spinal tenderness. Skin: No lesions or abrasions. Neurological: Alert, GCS 15 MEDICAL DECISION MAKING AND COURSE IN THE ED WITH INTERPRETATION/REVIEW OF DIAGNOSTIC STUDIES: This is a 34-year-old and with a past medical history of alcohol use disorder and prior history of pancreatitis who comes to the emergency department with acute onset epigastric abdominal pain with radiation to the back consistent with her prior pancreatitis episodes. I did review the patient's chart and she did just receive a MRI of her abdomen as she does have a history of pseudocyst. This was done in January. Per the report and the patient the pseudocyst have not gotten larger and they will just monitor. We will obtain CBC, CMP, and lipase. Will provide the patient with D5 LR bolus, Dilaudid, and Zofran. At this time the patient has had multiple CAT scans in the past and her pain on examination is not as severe. We will reevaluate the patient based on symptomatic treatment and results of the laboratory analysis. Laboratory: CBC is unremarkable. CMP reveals hyperglycemia at 108 otherwise unremarkable. Lipase is elevated at 2899. hCG is negative. Serum alcohol is negative. COVID-19 is negative. The radiological images were viewed by myself along with reading the report from the radiologist. CT abdomen pelvis with contrast reveals evidence of acute pancreatitis with a new small amount of free fluid in the pelvis probably secondary to the acute pancreatitis. There is no change in the cystic region with peripheral neda cification in the pancreatic head measuring up to 1.4 cm. Continued moderate dilation of the pancreatic duct which is unchanged from prior. After labs and imaging I did discuss admission with the patient. She was amenable to this plan. I did provide the patient with additional 4 mg of IV morphine at this time for continued pain. I started the patient on maintenance fluids. I contacted Dr. Isaacs who accepted the admission. The patient will be admitted to inpatient medicine. DISPOSITION: The patient was admitted to the hospital in stable condition CONDITION: Serious PROCEDURES: None FINAL IMPRESSION(S)/DIAGNOSES: 1. Acute on chronic pancreatitis Derrick Mayorga M.D. abdomen Pain Score (Numeric/FACES): 8 - Related Data Allergies Allergy/AdvReac Type Severity Reaction Status Date / Time No Known Allergies Allergy Verified 04/16/20 01:06 Home Meds: Home Meds Neda/Vit B12/Folic Acid/Vit B6 [Folic Acid-Vit B6-Vit B12 Tab] 1 each PO DAILY #30 tablet 09/17/19 [Rx] Acetaminophen/oxyCODONE [Percocet 325-5 MG] 1 tab PO BID #10 tablet 09/22/19 [Rx] Folic Acid 1 mg PO DAILY tablet 12/09/19 [Rx] Anti-Anxiety 04/16/20 [History] Past Medical History - Past Health History Medical/Surgical History: Denies Medical/Surgical History HEENT History: Reports: None Cardiovascular History: Reports: Blood Clots/VTE/DVT Other Cardiovascular History: blood clot on the liver Respiratory History: Reports: None Gastrointestinal History: Reports: Pancreatitis Genitourinary History: Reports: None THINNER SPRAYER History: Reports: None Musculoskeletal History: Reports: None Neurological History: Reports: None Psychiatric History: Reports: Addiction, Anxiety, Depression Other Psychiatric History: ETOH Endocrine/Metabolic History: Reports: None Hematologic History: Reports: None Immunologic History: Reports: None Oncologic (Cancer) History: Reports: None Dermatologic History: Reports: None - Infectious Disease History Infectious Disease History: Reports: Chicken Pox - Past Surgical History Head Surgeries/Procedures: Reports: None HEENT Surgical History: Reports: None Cardiovascular Surgical History: Reports: None Respiratory Surgical History: Reports: None GI Surgical History: Reports: EGD Female Surgical History: Reports: None Endocrine Surgical History: Reports: None Neurological Surgical History: Reports: None Musculoskeletal Surgical History: Reports: None Oncologic Surgical History: Reports: None Dermatological Surgical History: Reports: None Social & Family History - Family History Family Medical History: Noncontributory Cardiac: Reports: PR - Tobacco Use Tobacco Use Status *Q: Never Tobacco User Second Hand Smoke Exposure: No - Caffeine Use Caffeine Use: Reports: None Other Caffeine Use: 2 Diet Cokes a day - Recreational Drug Use Recreational Drug Use: No - Living Situation & Occupation Living situation: Reports: Single Occupation: Unemployed ED ROS GENERAL - Review of Systems Review Of Systems: See Below ED EXAM, GI/ABD - Physical Exam Exam: See Below Course - Vital Signs Last Recorded V/S: Last Vital Signs Temp 36.4 C 04/16/20 06:27 Pulse 91 04/16/20 06:27 Resp 17 04/16/20 06:27 BP 148/102 H 04/16/20 06:27 Pulse Ox 98 04/16/20 06:27 - Orders/Labs/Meds Orders: Medication Orders Lactated Ringer's (Ringers, Lactated) 1,000 mls @ 999 mls/hr IV BOLUS ONE Stop: 04/16/20 07:25 Lactated Ringer's (Ringers, Lactated) 1,000 mls @ 200 mls/hr IV ASDIRECTED CARLITOS Lorazepam (Ativan) 1 - 3 mg IVPUSH Q4H PRN; Protocol PRN Reason: Anxiety Morphine Sulfate (Morphine) 2 mg IVPUSH Q3H PRN PRN Reason: Pain Ondansetron HCl (Zofran) 4 mg IVPUSH Q4H PRN PRN Reason: Nausea/Vomiting Labs: Laboratory Tests 04/16/20 04/16/20 04/16/20 Range/Units 01:10 01:10 01:10 WBC 9.99 (4.0-11.0) K/uL RBC 4.23 L (4.30-5.90) M/uL Hgb 13.3 (12.0-16.0) g/dL Hct 39.0 (36.0-46.0) % MCV 92.2 (80.0-98.0) fL MCH 31.4 (27.0-32.0) pg MCHC 34.1 (31.0-37.0) g/dL RDW Std Deviation 37.6 (28.0-62.0) fl RDW Coeff of [place] 11 (11.0-15.0) % Plt Count 256 (150-400) K/uL MPV 8.60 (7.40-12.00) fL Neut % (Auto) 59.1 (48.0-80.0) % Lymph % (Auto) 29.6 (16.0-40.0) % Pepin % (Auto) 9.2 (0.0-15.0) % Eos % (Auto) 1.8 (0.0-7.0) % Baso % (Auto) 0.3 (0.0-1.5) % Neut # (Auto) 5.9 H (1.4-5.7) K/uL Lymph # (Auto) 3.0 H (0.6-2.4) K/uL Pepin # (Auto) 0.9 H (0.0-0.8) K/uL Eos # (Auto) 0.2 (0.0-0.7) K/uL Baso # (Auto) 0.0 (0.0-0.1) K/uL Sodium 136 (136-145) mmol/L Potassium 3.8 (3.5-5.1) mmol/L Chloride 100 (98-107) mmol/L Carbon Dioxide 26.4 (21.0-32.0) mmol/L BUN 9 (7.0-18.0) mg/dL Creatinine 0.7 (0.6-1.0) mg/dL Est Cr Clr Drug Dosing 98.71 mL/min Estimated GFR (MDRD) > 60.0 ml/min Glucose 108 H (74-106) mg/dL Calcium 8.5 (8.5-10.1) mg/dL Total Bilirubin 0.3 (0.2-1.0) mg/dL AST 35 (15-37) IU/L ALT 44 (14-63) IU/L Alkaline Phosphatase 98 (46-116) U/L Total Protein 7.0 (6.4-8.2) g/dL Albumin 3.6 (3.4-5.0) g/dL Globulin 3.4 (2.6-4.0) g/dL Albumin/Globulin Ratio 1.1 (0.9-1.6) Lipase 2899 H (73-393) U/L Urine HCG, Qual NEGATIVE (NEGATIVE) Ethyl Alcohol mg/dL SARS-CoV-2 RNA (DENISSE) (NEGATIVE) 04/16/20 04/16/20 Range/Units 01:10 03:20 WBC (4.0-11.0) K/uL RBC (4.30-5.90) M/uL Hgb (12.0-16.0) g/dL Hct (36.0-46.0) % MCV (80.0-98.0) fL MCH (27.0-32.0) pg MCHC (31.0-37.0) g/dL RDW Std Deviation (28.0-62.0) fl RDW Coeff of [place] (11.0-15.0) % Plt Count (150-400) K/uL MPV (7.40-12.00) fL Neut % (Auto) (48.0-80.0) % Lymph % (Auto) (16.0-40.0) % Pepin % (Auto) (0.0-15.0) % Eos % (Auto) (0.0-7.0) % Baso % (Auto) (0.0-1.5) % Neut # (Auto) (1.4-5.7) K/uL Lymph # (Auto) (0.6-2.4) K/uL Pepin # (Auto) (0.0-0.8) K/uL Eos # (Auto) (0.0-0.7) K/uL Baso # (Auto) (0.0-0.1) K/uL Sodium (136-145) mmol/L Potassium (3.5-5.1) mmol/L Chloride (98-107) mmol/L Carbon Dioxide (21.0-32.0) mmol/L BUN (7.0-18.0) mg/dL Creatinine (0.6-1.0) mg/dL Est Cr Clr Drug Dosing mL/min Estimated GFR (MDRD) ml/min Glucose (74-106) mg/dL Calcium (8.5-10.1) mg/dL Total Bilirubin (0.2-1.0) mg/dL AST (15-37) IU/L ALT (14-63) IU/L Alkaline Phosphatase (46-116) U/L Total Protein (6.4-8.2) g/dL Albumin (3.4-5.0) g/dL Globulin (2.6-4.0) g/dL Albumin/Globulin Ratio (0.9-1.6) Lipase (73-393) U/L Urine HCG, Qual (NEGATIVE) Ethyl Alcohol < 3.0 mg/dL SARS-CoV-2 RNA (DENISSE) NEGATIVE (NEGATIVE) Meds: Medications Generic Name Dose Route Start Last Admin Trade Name Freq PRN Reason Stop Dose Admin Lactated Ringer's 1,000 mls @ 999 mls/hr 04/16/20 06:25 Ringers, Lactated IV 04/16/20 07:25 BOLUS ONE Lactated Ringer's 1,000 mls @ 200 mls/hr 04/16/20 06:45 Ringers, Lactated IV ASDIRECTED CARLITOS Lorazepam 1 - 3 mg 04/16/20 06:28 Ativan IVPUSH Q4H PRN Anxiety Protocol Morphine Sulfate 2 mg 04/16/20 06:26 Morphine IVPUSH Q3H PRN Pain Ondansetron HCl 4 mg 04/16/20 06:27 Zofran IVPUSH Q4H PRN Nausea/Vomiting Discontinued Medications Generic Name Dose Route Start Last Admin Trade Name Freq PRN Reason Stop Dose Admin Hydromorphone HCl 1 mg 04/16/20 01:13 04/16/20 01:21 Dilaudid IVPUSH 04/16/20 01:14 1 mg ONETIME ONE Administration Dextrose/Lactated Ringer's 1,000 mls @ 999 mls/hr 04/16/20 01:15 04/16/20 01:19 Dextrose 5%-Lactated Ringers IV 999 mls/hr ASDIRECTED CARLITOS Administration Lactated Ringer's 1,000 mls @ 125 mls/hr 04/16/20 04:15 04/16/20 04:21 Ringers, Lactated IV 125 mls/hr ASDIRECTED CARLITOS Administration Iopamidol 100 ml 04/16/20 02:44 04/16/20 02:46 Isovue-370 (76%) IVPUSH 04/16/20 02:45 100 ml ONETIME STA Administration Morphine Sulfate 4 mg 04/16/20 03:04 04/16/20 03:24 Morphine IVPUSH 04/16/20 03:05 4 mg ONETIME ONE Administration Ondansetron HCl 4 mg 04/16/20 01:15 04/16/20 01:20 Zofran IVPUSH 04/16/20 01:16 4 mg ONETIME ONE Administration Departure - Departure Time of Disposition: 05:18 Disposition: Admitted As Inpatient 67 Condition: Serious Clinical Impression: Pancreatitis Qualifiers: Chronicity: acute Pancreatitis type: unspecified pancreatitis type Acute pancreatitis complication: unspecified Qualified Code(s): K85.90 - Acute pancreatitis without necrosis or infection, unspecified - Discharge Information Sepsis Event Note (ED) - Evaluation Sepsis Screening Result: No Definite Risk - Focused Exam Vital Signs: Vital Signs Temp Pulse Resp BP Pulse Ox 04/16/20 04:23 71 16 166/106 H 99 04/16/20 02:55 35.5 C L 92 20 189/132 H 99 04/16/20 01:01 35.7 C L 100 17 148/106 H 98
[2020-04-16 01:56] LABS: BLOOD UREA NITROGEN,BUN 9 mg/dL (7.0-18.0); CARBON DIOXIDE,CO2 26.4 mmol/L (21.0-32.0); CHLORIDE,CL 100 mmol/L (98-107); GLUCOSE RANDOM 108 mg/dL (74-106); POTASSIUM,K 3.8 mmol/L (3.5-5.1); SODIUM,NA 136 mmol/L (136-145)
[2020-04-16 02:14] LABS: LIPASE 2899 U/L (73-393)
[2020-04-16] MEDS ORDERED: Iopamidol 755 Mg/ML 100 ML Bottle IVPUSH STA (02:44)
[2020-04-16] MEDS ORDERED: Morphine 4 MG/ML Syringe IVPUSH ONE (03:04)
--- NOTE | 2020-04-16 03:55 | CT ---
INDICATION: History of pancreatitis and cyst. Evaluate for worsening cyst or hemorrhage. COMPARISON: 09/20/2019 TECHNIQUE: CT examination of the abdomen and pelvis was performed with the uneventful intravenous administration of 100 cc of Isovue 370 while 3 mm thick axial sections were obtained from the lung bases through the pubic symphysis. Oral contrast was not administered. Please note that all CT scans at this facility use dose modulation, iterative reconstruction, and/or weight-based dosing when appropriate to reduce radiation dose to as low as reasonably achievable. FINDINGS: In the abdomen, the liver has a stable a vague low density region in the medial segment of the left lobe of the liver adjacent to the falciform ligament, consistent with a hemangioma or focal fatty infiltration. This is a common incidental finding and requires no further followup. The rest of the liver remains normal in appearance. The spleen and adrenals are normal in appearance. There is decreased fullness of the pancreatic tail with decreased inflammatory changes around the pancreatic tail, findings representing resolution of previously seen acute pancreatitis of the pancreatic tail. There is new moderate inflammatory stranding around the pancreatic head and body however, findings of acute pancreatitis. The cystic region in the pancreatic head is unchanged in size, now measuring 1.4 by 0.9 centimeters, previously 1.3 x 1.2 centimeters. Again seen are small coarse calcifications around this cyst. The findings are that of a small pseudocyst. Again seen is moderate dilatation of the pancreatic duct, measuring up to 5 millimeters in caliber in the pancreatic head and slightly decreasing in caliber throughout the body and pancreatic tail. The dilatation extends to the area of the pseudocyst and may be produced by the pseudocyst. The kidneys are normal in appearance. The gallbladder is normal in appearance. The abdominal aorta is normal in caliber with no sign of dilatation. There is no sign of retroperitoneal mass or adenopathy. The stomach, loops of small bowel, and colon in the abdomen are normal in appearance. In the pelvis, the appendix is nonvisualized, but there is no sign of an inflammatory process in the area of the appendix. The loops of small bowel and colon in the pelvis are normal in appearance. The uterus and adnexal regions are normal in appearance. The urinary bladder is normal in appearance. There is no sign of pelvic or inguinal mass or adenopathy. There is no sign of free air in the abdomen or pelvis. There is a new small amount of free fluid seen in the pelvis between the urinary bladder and uterus, possibly related to the acute pancreatitis described above. The lung bases are clear. The osseous structures are normal in appearance for the patient`s age. IMPRESSION: CT of the abdomen shows new findings of moderate acute pancreatitis involving the pancreatic head and body. New small amount of free fluid in the pelvis probably related to the acute pancreatitis. Improvement in previously seen mild pancreatitis involving the pancreatic tail. No change in cystic region with peripheral calcification in the pancreatic head measuring up to 1.4 centimeters in diameter, probably a pseudocyst. Continued moderate dilatation of the pancreatic duct extending s to the pseudocyst. The pseudocyst may be producing the pancreatic duct obstruction. CT of the pelvis shows small amount of free fluid, probably related to the acute pancreatitis described above. Please note that all CT scans at this facility use dose modulation, iterative reconstruction, and/or weight-based dosing when appropriate to reduce radiation dose to as low as reasonably achievable. Dictated by Bashir Peña MD @ Apr 16 2020 3:42AM Signed by Dr. Bashir Peña @ Apr 16 2020 3:53AM
[2020-04-16] MEDS ORDERED: Lactated Ringers 1,000 ML IV SCH (04:15)
[2020-04-16] MEDS ORDERED: Lactated Ringers 1,000 ML IV ONE (06:25)
[2020-04-16] MEDS ORDERED: Morphine 2 MG/ML SYRINGE IVPUSH PRN (06:26)
[2020-04-16] MEDS ORDERED: Ondansetron 4 MG/2 ML SDV IVPUSH PRN (06:27)
[2020-04-16] MEDS ORDERED: LORazepam 2 MG/ML SDV IVPUSH PRN (06:28)
--- NOTE | 2020-04-16 09:05 | PCM.HP.2 ---
H&P History of Present Illness - General Date of Service: 04/16/20 Admit Problem/Dx: Admission Diagnosis/Problem Admission Diagnosis/Problem Acute pancreatitis Source of Information: Patient History Limitations: Reports: No Limitations - History of Present Illness Initial Comments - Free Text/Narative: 34-year-old female presents with epigastric abdominal pain and nausea for the past 2 day. She has a PMH of alcohol abuse and recurrent pancreatitis. She reports being sober for approximately 6 months but then stated drinking vodka again approximately 5-6 days ago. She reports drinking at least 2 shots of vodka every other day. She reports not having much of an appetite and has been trying to drink fluids. The pain is located in her epigastric region, radiates to her b ack and is rated as 10/10. She denies having any fevers, chills, cough, sore throat, SOB, chest pain, vomiting, diarrhea, blood in stool or blood in urine. In the ER, CBC and CMP were unremarkable. Lipase level elevated [place] 2899. CT abd/pelvis showed moderate acute pancreatitis. Patient was given 1 L IV LR bolus and 1 L IV D5-LR bolus. COVID-19 test negative. Patient admitted for further evaluation and treatment. abdomen Pain Score (Numeric/FACES): 8 - Related Data Allergies/Adverse Reactions: Allergies Allergy/AdvReac Type Severity Reaction Status Date / Time No Known Allergies Allergy Verified 04/16/20 06:53 Home Medications: Home Meds Jeffery/Vit B12/Folic Acid/Vit B6 [Folic Acid-Vit B6-Vit B12 Tab] 1 each PO DAILY #30 tablet 09/17/19 [Rx] Acetaminophen/oxyCODONE [Percocet 325-5 MG] 1 tab PO BID #10 tablet 09/22/19 [Rx] Folic Acid 1 mg PO DAILY tablet 12/09/19 [Rx] Anti-Anxiety 04/16/20 [History] Past Medical History - Past Health History Medical/Surgical History: Denies Medical/Surgical History HEENT History: Reports: None Cardiovascular History: Reports: Blood Clots/VTE/DVT Other Cardiovascular History: blood clot on the liver Respiratory History: Reports: None Gastrointestinal History: Reports: Pancreatitis Genitourinary History: Reports: None DIRECT SUPPORT WORKER History: Reports: None Musculoskeletal History: Reports: None Neurological History: Reports: None Psychiatric History: Reports: Addiction, Anxiety, Depression Other Psychiatric History: ETOH Endocrine/Metabolic History: Reports: None Hematologic History: Reports: None Immunologic History: Reports: None Oncologic (Cancer) History: Reports: None Dermatologic History: Reports: None - Infectious Disease History Infectious Disease History: Reports: Chicken Pox - Past Surgical History Head Surgeries/Procedures: Reports: None HEENT Surgical History: Reports: None Cardiovascular Surgical History: Reports: None Respiratory Surgical History: Reports: None GI Surgical History: Reports: EGD Female Surgical History: Reports: None Endocrine Surgical History: Reports: None Neurological Surgical History: Reports: None Musculoskeletal Surgical History: Reports: None Oncologic Surgical History: Reports: None Dermatological Surgical History: Reports: None Social & Family History - Family History Family Medical History: Noncontributory Cardiac: Reports: DE - Tobacco Use Tobacco Use Status *Q: Never Tobacco User Second Hand Smoke Exposure: No - Caffeine Use Caffeine Use: Reports: None Other Caffeine Use: 2 Diet Cokes a day - Alcohol Use Date of Last Drink: 04/11/20 - Recreational Drug Use Recreational Drug Use: No - Living Situation & Occupation Living situation: Reports: Single Occupation: Unemployed H&P Review of Systems - Review of Systems: Review Of Systems: See Below Exam - Exam Exam: See Below - Vital Signs Vital Signs: Last Vital Signs Temp 36.2 C 04/16/20 08:00 Pulse 85 04/16/20 08:00 Resp 16 04/16/20 08:00 BP 165/107 H 04/16/20 08:00 Pulse Ox 99 04/16/20 08:00 Weight: 73.936 kg - Exam General: Alert, Oriented, Cooperative HEENT: Conjunctiva Clear, EOMI, Hearing Intact, Pupils Equal, Pupils Reactive Neck: Supple, Trachea Midline Lungs: Clear to Auscultation, Normal Respiratory Effort Cardiovascular: Regular Rate, Regular Rhythm GI/Abdominal Exam: Normal Bowel Sounds, Soft, No Distention, Other (epigastric ttp, no rebound tenderness, no guarding, no rigidity.) Extremities: Normal Inspection Peripheral Pulses: 2+: Radial (L), Radial (R) Skin: Warm, Dry, Intact Neurological: Cranial Nerves Intact, Strength Equal Bilateral, Normal Speech, Normal Tone Neuro Extensive - Mental Status: Alert, Oriented x3, Normal Mood/Affect Psychiatric: Alert, Normal Affect, Normal Mood - Patient Data Lab Results Last 24 hrs: Laboratory Results - last 24 hr 04/16/20 04/16/20 04/16/20 Range/Units 01:10 01:10 01:10 WBC 9.99 (4.0-11.0) K/uL RBC 4.23 L (4.30-5.90) M/uL Hgb 13.3 (12.0-16.0) g/dL Hct 39.0 (36.0-46.0) % MCV 92.2 (80.0-98.0) fL MCH 31.4 (27.0-32.0) pg MCHC 34.1 (31.0-37.0) g/dL RDW Std Deviation 37.6 (28.0-62.0) fl RDW Coeff of [place] 11 (11.0-15.0) % Plt Count 256 (150-400) K/uL MPV 8.60 (7.40-12.00) fL Neut % (Auto) 59.1 (48.0-80.0) % Lymph % (Auto) 29.6 (16.0-40.0) % [place] % (Auto) 9.2 (0.0-15.0) % Eos % (Auto) 1.8 (0.0-7.0) % Baso % (Auto) 0.3 (0.0-1.5) % Neut # (Auto) 5.9 H (1.4-5.7) K/uL Lymph # (Auto) 3.0 H (0.6-2.4) K/uL [place] # (Auto) 0.9 H (0.0-0.8) K/uL Eos # (Auto) 0.2 (0.0-0.7) K/uL Baso # (Auto) 0.0 (0.0-0.1) K/uL Sodium 136 (136-145) mmol/L Potassium 3.8 (3.5-5.1) mmol/L Chloride 100 (98-107) mmol/L Carbon Dioxide 26.4 (21.0-32.0) mmol/L BUN 9 (7.0-18.0) mg/dL Creatinine 0.7 (0.6-1.0) mg/dL Est Cr Clr Drug Dosing 98.71 mL/min Estimated GFR (MDRD) > 60.0 ml/min Glucose 108 H (74-106) mg/dL Calcium 8.5 (8.5-10.1) mg/dL Total Bilirubin 0.3 (0.2-1.0) mg/dL AST 35 (15-37) IU/L ALT 44 (14-63) IU/L Alkaline Phosphatase 98 (46-116) U/L Total Protein 7.0 (6.4-8.2) g/dL Albumin 3.6 (3.4-5.0) g/dL Globulin 3.4 (2.6-4.0) g/dL Albumin/Globulin Ratio 1.1 (0.9-1.6) Lipase 2899 H (73-393) U/L Urine HCG, Qual NEGATIVE (NEGATIVE) Ethyl Alcohol mg/dL SARS-CoV-2 RNA (DENISSE) (NEGATIVE) 04/16/20 04/16/20 Range/Units 01:10 03:20 WBC (4.0-11.0) K/uL RBC (4.30-5.90) M/uL Hgb (12.0-16.0) g/dL Hct (36.0-46.0) % MCV (80.0-98.0) fL MCH (27.0-32.0) pg MCHC (31.0-37.0) g/dL RDW Std Deviation (28.0-62.0) fl RDW Coeff of [place] (11.0-15.0) % Plt Count (150-400) K/uL MPV (7.40-12.00) fL Neut % (Auto) (48.0-80.0) % Lymph % (Auto) (16.0-40.0) % [place] % (Auto) (0.0-15.0) % Eos % (Auto) (0.0-7.0) % Baso % (Auto) (0.0-1.5) % Neut # (Auto) (1.4-5.7) K/uL Lymph # (Auto) (0.6-2.4) K/uL [place] # (Auto) (0.0-0.8) K/uL Eos # (Auto) (0.0-0.7) K/uL Baso # (Auto) (0.0-0.1) K/uL Sodium (136-145) mmol/L Potassium (3.5-5.1) mmol/L Chloride (98-107) mmol/L Carbon Dioxide (21.0-32.0) mmol/L BUN (7.0-18.0) mg/dL Creatinine (0.6-1.0) mg/dL Est Cr Clr Drug Dosing mL/min Estimated GFR (MDRD) ml/min Glucose (74-106) mg/dL Calcium (8.5-10.1) mg/dL Total Bilirubin (0.2-1.0) mg/dL AST (15-37) IU/L ALT (14-63) IU/L Alkaline Phosphatase (46-116) U/L Total Protein (6.4-8.2) g/dL Albumin (3.4-5.0) g/dL Globulin (2.6-4.0) g/dL Albumin/Globulin Ratio (0.9-1.6) Lipase (73-393) U/L Urine HCG, Qual (NEGATIVE) Ethyl Alcohol < 3.0 mg/dL SARS-CoV-2 RNA (DENISSE) NEGATIVE (NEGATIVE) Result Diagrams: 04/16/20 01:10 04/16/20 01:10 Sepsis Event Note - Evaluation Sepsis Screening Result: No Definite Risk - Focused Exam Vital Signs: Vital Signs Temp Pulse Resp BP Pulse Ox 04/16/20 08:00 36.2 C 85 16 165/107 H 99 04/16/20 06:27 36.4 C 91 17 148/102 H 98 04/16/20 04:23 71 16 166/106 H 99 04/16/20 02:55 35.5 C L 92 20 189/132 H 99 04/16/20 01:01 35.7 C L 100 17 148/106 H 98 - Problem List (1) Acute pancreatitis SNOMED Code(s): 119055899 ICD Code: K85.90 - ACUTE PANCREATITIS WITHOUT NECROSIS OR INFECTION, UNSP Status: Acute Current Visit: No Qualifiers: Pancreatitis type: alcohol induced Acute pancreatitis complication: unspecified Qualified Code(s): K85.20 - Alcohol induced acute pancreatitis without necrosis or infection (2) Pancreatic cyst SNOMED Code(s): 60827269 ICD Code: K86.2 - CYST OF PANCREAS Status: Chronic Current Visit: No (3) Alcohol abuse SNOMED Code(s): 46938122 ICD Code: F10.10 - ALCOHOL ABUSE, UNCOMPLICATED Status: Chronic Current Visit: No Problem List Initiated/Reviewed/Updated: Yes Orders Last 24hrs: Active Orders 24 hr Category Date Time Status Admission Status [Patient Status] [ADT] Routine ADT 04/16/20 06:42 Active Oxygen Therapy [RC] PRN Care 04/16/20 09:03 Ordered Up ad [place] [RC] ASDIRECTED Care 04/16/20 09:03 Ordered VTE/DVT Education [RC] PER UNIT ROUTINE Care 04/16/20 09:03 Ordered Vital Signs [RC] Q4H Care 04/16/20 09:03 Ordered NPO [Nothing Per Oral Diet] [DIET] Diet 04/16/20 Breakfast Active CBC WITH AUTO DIFF [HEME] AM Lab 04/17/20 05:11 Ordered COMPREHENSIVE METABOLIC PN,CMP [CHEM] AM Lab 04/17/20 05:11 Ordered LIPASE [CHEM] AM Lab 04/17/20 05:11 Ordered Enoxaparin [Lovenox] Med 04/16/20 09:15 Ordered 40 mg SUBCUT Q24H LORazepam [Ativan] Med 04/16/20 06:28 Active 1 - 3 mg IVPUSH Q4H PRN Lactated Ringers [Ringers, Lactated] 1,000 ml Med 04/16/20 06:45 Active IV ASDIRECTED Morphine Med 04/16/20 06:26 Active 2 mg IVPUSH Q3H PRN Ondansetron [Zofran] Med 04/16/20 06:27 Active 4 mg IVPUSH Q4H PRN Resuscitation Status Routine Resus Stat 04/16/20 09:03 Ordered Medication Orders Lactated Ringer's (Ringers, Lactated) 1,000 mls @ 200 mls/hr IV ASDIRECTED CARLITOS Lorazepam (Ativan) 1 - 3 mg IVPUSH Q4H PRN; Protocol PRN Reason: Anxiety Last Admin: 04/16/20 06:49 Dose: 2 mg Documented by: SANNAEYCRISTO Morphine Sulfate (Morphine) 2 mg IVPUSH Q3H PRN PRN Reason: Pain Last Admin: 04/16/20 06:46 Dose: 2 mg Documented by: GUMEYVO Ondansetron HCl (Zofran) 4 mg IVPUSH Q4H PRN PRN Reason: Nausea/Vomiting Assessment/Plan Comment:: Assessment and Plan: 1. Acute pancreatitis: - Admit to med/surg. Patient is NPO and started on IV LR @ 200 cc/hr. Patient received 2 L IV fluids in the ER. For pain, will start dilaudid 0.5 mg q2 prn. - CT abd/pelvis showed moderate acute pancreatitis involving pancreatic head and body. There is a pancreatic pseudocyst and continued moderate dilatation of pancreatic duct extending to the cyst. The cyst may be producing the pancreatic duct obstruction. Patient has had recent MRI done in January 2020 which showed pancreatic pseudocyst. Patient is in the process of following up with gastroenterology in [place], [place]. 2. Alcohol abuse: - Will start patient on IV thiamine and folic acid. Will order lorazepam prn CIWAA protocol. 3. DVT prophylaxis: lovenox 40 mg subcut qd.
[2020-04-16] MEDS: Enoxaparin 40 MG/0.4 ML Syringe SUBCUT SCH (10:19)
[2020-04-16] MEDS: Folic Acid 50 MG/10 ML MDV SUBCUT SCH (10:28)
[2020-04-16] MEDS: HYDROmorphone 1 MG/ML Syringe IVPUSH PRN ×6 (10:32→23:02)
[2020-04-16] MEDS: Thiamine 100 MG in Sodium Chloride 0.9% 100 ML IV SCH (10:55)
[2020-04-16] MEDS: Lactated Ringers 1,000 ML IV SCH ×3 (11:35→21:48)
[2020-04-16] MEDS: LORazepam 2 MG/ML SDV IVPUSH PRN (13:58)
[2020-04-17] MEDS: HYDROmorphone 1 MG/ML Syringe IVPUSH PRN ×10 (01:32→22:36)
[2020-04-17] MEDS: Lactated Ringers 1,000 ML IV SCH ×5 (02:46→23:48)
--- NOTE | 2020-04-17 06:34 | PCM.PN ---
- General Info Date of Service: 04/17/20 - Review of Systems Systems Review Comment:: abdominal pain controlled with dilaudid, does not feel ready to eat this morning - Patient Data Vitals - Most Recent: Last Vital Signs Temp 36.2 C 04/17/20 03:42 Pulse 89 04/17/20 03:42 Resp 17 04/17/20 03:42 BP 116/83 04/17/20 03:42 Pulse Ox 96 04/17/20 03:42 Weight - Most Recent: 73.936 kg I&O - Last 24 Hours: Intake & Output 04/16/20 04/16/20 04/17/20 14:59 22:59 06:59 Intake Total 301 Output Total 2100 Balance -1799 Lab Results Last 24 Hours: Laboratory Results - last 24 hr 04/17/20 Range/Units 05:15 WBC 6.10 (4.0-11.0) K/uL RBC 3.78 L (4.30-5.90) M/uL Hgb 11.7 L (12.0-16.0) g/dL Hct 36.3 (36.0-46.0) % MCV 96.0 (80.0-98.0) fL MCH 31.0 (27.0-32.0) pg MCHC 32.2 (31.0-37.0) g/dL RDW Std Deviation 42.9 (28.0-62.0) fl RDW Coeff of [place] 12 (11.0-15.0) % Plt Count 248 (150-400) K/uL MPV 9.10 (7.40-12.00) fL Neut % (Auto) 44.2 L (48.0-80.0) % Lymph % (Auto) 40.2 H (16.0-40.0) % [place] % (Auto) 11.5 (0.0-15.0) % Eos % (Auto) 3.3 (0.0-7.0) % Baso % (Auto) 0.8 (0.0-1.5) % Neut # (Auto) 2.7 (1.4-5.7) K/uL Lymph # (Auto) 2.5 H (0.6-2.4) K/uL [place] # (Auto) 0.7 (0.0-0.8) K/uL Eos # (Auto) 0.2 (0.0-0.7) K/uL Baso # (Auto) 0.1 (0.0-0.1) K/uL Nucleated RBC % 0.0 /100WBC Nucleated RBCs # 0 K/uL Med Orders - Current: Current Medications Enoxaparin Sodium (Lovenox) 40 mg SUBCUT Q24H [facility] Last Admin: 04/16/20 10:19 Dose: 40 mg Documented by: Folic Acid (Folic Acid) 1 mg SUBCUT DAILY [facility] Last Admin: 04/16/20 10:28 Dose: 1 mg Documented by: Hydromorphone HCl (Dilaudid) 0.5 mg IVPUSH Q2H PRN PRN Reason: Pain Last Admin: 04/17/20 06:07 Dose: 0.5 mg Documented by: Lactated Ringer's (Ringers, Lactated) 1,000 mls @ 200 mls/hr IV ASDIRECTED [facility] Last Admin: 04/17/20 02:46 Dose: 200 mls/hr Documented by: Thiamine HCl 100 mg/ Sodium (Chloride) 101 mls @ 202 mls/hr IV DAILY [facility] Last Admin: 04/16/20 10:55 Dose: 202 mls/hr Documented by: Lorazepam (Ativan) 0 mg IVPUSH Q4H PRN; Protocol PRN Reason: CIWAA Last Admin: 04/16/20 13:58 Dose: 1 mg Documented by: Ondansetron HCl (Zofran) 4 mg IVPUSH Q4H PRN PRN Reason: Nausea/Vomiting Discontinued Medications Hydromorphone HCl (Dilaudid) 1 mg IVPUSH ONETIME ONE Stop: 04/16/20 01:14 Last Admin: 04/16/20 01:21 Dose: 1 mg Documented by: Dextrose/Lactated Ringer's (Dextrose 5%-Lactated Ringers) 1,000 mls @ 999 ml s/hr IV ASDIRECTED [facility] Last Admin: 04/16/20 01:19 Dose: 999 mls/hr Documented by: Lactated Ringer's (Ringers, Lactated) 1,000 mls @ 125 mls/hr IV ASDIRECTED [facility] Last Admin: 04/16/20 04:21 Dose: 125 mls/hr Documented by: Lactated Ringer's (Ringers, Lactated) 1,000 mls @ 999 mls/hr IV BOLUS ONE Stop: 04/16/20 07:25 Last Admin: 04/16/20 06:28 Dose: 999 mls/hr Documented by: Iopamidol (Isovue-[id number] (76%)) 100 ml IVPUSH ONETIME STA Stop: 04/16/20 02:45 Last Admin: 04/16/20 02:46 Dose: 100 ml Documented by: Lorazepam (Ativan) 1 - 3 mg IVPUSH Q4H PRN; Protocol PRN Reason: Anxiety Last Admin: 04/16/20 06:49 Dose: 2 mg Documented by: Morphine Sulfate (Morphine) 4 mg IVPUSH ONETIME ONE Stop: 04/16/20 03:05 Last Admin: 04/16/20 03:24 Dose: 4 mg Documented by: Morphine Sulfate (Morphine) 2 mg IVPUSH Q3H PRN PRN Reason: Pain Last Admin: 04/16/20 06:46 Dose: 2 mg Documented by: Ondansetron HCl (Zofran) 4 mg IVPUSH ONETIME ONE Stop: 04/16/20 01:16 Last Admin: 04/16/20 01:20 Dose: 4 mg Documented by: - Exam General: Alert, Oriented Neck: Supple Lungs: Clear to Auscultation, Normal Respiratory Effort Cardiovascular: Regular Rate, Regular Rhythm GI/Abdominal Exam: Soft, Non-Tender, No Distention Extremities: Non-Tender, No Pedal Edema Skin: Warm, Dry, Intact Neurological: No New Focal Deficit Sepsis Event Note - Evaluation Sepsis Screening Result: No Definite Risk - Focused Exam Vital Signs: Vital Signs Temp Pulse Resp BP Pulse Ox 04/17/20 03:42 36.2 C 89 17 116/83 96 04/16/20 23:04 36.2 C 94 18 132/85 97 04/16/20 19:35 36.4 C 85 18 132/89 95 - Problem List Review Problem List Initiated/Reviewed/Updated: Yes - My Orders Last 24 Hours: My Active Orders 04/16/20 06:27 Ondansetron [Zofran] 4 mg IVPUSH Q4H PRN 04/16/20 Breakfast NPO [Nothing Per Oral Diet] [DIET] 04/16/20 06:45 Lactated Ringers [Ringers, Lactated] 1,000 ml IV ASDIRECTED 04/18/20 05:11 CBC WITH AUTO DIFF [HEME] AM COMPREHENSIVE METABOLIC PN,CMP [CHEM] AM - Plan Plan:: Assessment and Plan: 34 yo female with pmh of recurrent pancreatitis with pseudocysts admitted for acute pancreatitis. We will continue IV fluids and bowel rest. Will reassess later today to see if can restart oral diet.
[2020-04-17 06:41] LABS: BLOOD UREA NITROGEN,BUN 3 mg/dL (7.0-18.0); CARBON DIOXIDE,CO2 30.6 mmol/L (21.0-32.0); CHLORIDE,CL 102 mmol/L (98-107); GLUCOSE RANDOM 133 mg/dL (74-106); LIPASE 243 U/L (73-393); POTASSIUM,K 3.7 mmol/L (3.5-5.1); SODIUM,NA 137 mmol/L (136-145)
[2020-04-17] MEDS: LORazepam 2 MG/ML SDV IVPUSH PRN (08:05)
[2020-04-17] MEDS: Thiamine 100 MG in Sodium Chloride 0.9% 100 ML IV SCH (09:28)
[2020-04-17] MEDS: Folic Acid 50 MG/10 ML MDV SUBCUT SCH (09:28)
[2020-04-17] MEDS: Enoxaparin 40 MG/0.4 ML Syringe SUBCUT SCH (09:28)
[2020-04-18] MEDS: HYDROmorphone 1 MG/ML Syringe IVPUSH PRN ×5 (00:43→09:21)
[2020-04-18] MEDS: Lactated Ringers 1,000 ML IV SCH ×2 (04:43→10:09)
[2020-04-18 06:43] LABS: BLOOD UREA NITROGEN,BUN 2 mg/dL (7.0-18.0); CARBON DIOXIDE,CO2 28.9 mmol/L (21.0-32.0); CHLORIDE,CL 102 mmol/L (98-107); GLUCOSE RANDOM 102 mg/dL (74-106); POTASSIUM,K 3.9 mmol/L (3.5-5.1); SODIUM,NA 137 mmol/L (136-145)
[2020-04-18] MEDS: Folic Acid 50 MG/10 ML MDV SUBCUT SCH (09:51)
[2020-04-18] MEDS: Enoxaparin 40 MG/0.4 ML Syringe SUBCUT SCH (09:56)
[2020-04-18] MEDS: Thiamine 100 MG in Sodium Chloride 0.9% 100 ML IV SCH (11:29)
--- NOTE | 2020-04-18 12:06 | PCM.DCSUM1 ---
<Omar Moon - Last Filed: 04/18/20 18:59> Discharge Summary - Hospital Course Free Text/Narrative:: 34-year-old female admitted for acute pancreatitis. She has a PMH of alcohol abuse and recurrent pancreatitis. Patient was treated with IV fluids, made NPO and IV dilaudid for pain. On admission, CT abd/pelvis showed moderate acute pancreatitis involving pancreatic head and body. There is a pancreatic pseudocyst and continued moderate dilatation of pancreatic duct extending to the cyst. The cyst may be producing the pancreatic duct obstruction. Patient has had recent MRI done in January 2020 which showed pancreatic pseudocyst. Patient is in the process of following up with gastroenterology in [place], [place]. As her pain improved, she was successfully transitioned to an oral diet. Patient was discharged in stable condition and advised to follow-up with her PCP and gastroenterology on discharge. - Discharge Data Discharge Date: 04/18/20 Discharge Disposition: Home, Self-Care 01 Condition: Good - Referral to Home Health Primary Care Physician: Jarrett Harper MD - Discharge Diagnosis/Problem(s) (1) Acute pancreatitis SNOMED Code(s): 245653942 ICD Code: K85.90 - ACUTE PANCREATITIS WITHOUT NECROSIS OR INFECTION, UNSP Status: Acute Qualifiers: Pancreatitis type: alcohol induced Acute pancreatitis complication: unspecified Qualified Code(s): K85.20 - Alcohol induced acute pancreatitis without necrosis or infection (2) Pancreatic cyst SNOMED Code(s): 34645131 ICD Code: K86.2 - CYST OF PANCREAS Status: Chronic (3) Alcohol abuse SNOMED Code(s): 89508115 ICD Code: F10.10 - ALCOHOL ABUSE, UNCOMPLICATED Status: Chronic - Patient Instructions Diet: Usual Diet as Tolerated Activity: As Tolerated Notify Provider of: Fever, Increased Pain, Swelling and Redness, Drainage, Nausea and/or Vomiting - Discharge Plan *PRESCRIPTION DRUG MONITORING PROGRAM REVIEWED*: Not Applicable *COPY OF PRESCRIPTION DRUG MONITORING REPORT IN PATIENT RENÉE: Not Applicable Prescriptions/Med Rec: Thiamine [Vitamin B-1] 100 mg PO BEDTIME 30 Days #30 tab Home Medications: Home Meds Jeffery/Vit B12/Folic Acid/Vit B6 [Folic Acid-Vit B6-Vit B12 Tab] 1 each PO DAILY #30 tablet 09/17/19 [Rx] Acetaminophen/oxyCODONE [Percocet 325-5 MG] 1 tab PO BID #10 tablet 09/22/19 [Rx] Folic Acid 1 mg PO DAILY tablet 12/09/19 [Rx] Anti-Anxiety 04/16/20 [History] Thiamine [Vitamin B-1] 100 mg PO BEDTIME 30 Days #30 tab 04/18/20 [Rx] Oxygen Therapy Mode: Room Air Patient Handouts: Acute Pancreatitis, [id number], Thiamine, Vitamin B1 tablets Referrals: Jarrett Harper MD [Primary Care Provider] - 04/26/20 8:30 am - Discharge Summary/Plan Comment DC Time >30 min.: No - Patient Data Vitals - Most Recent: Last Vital Signs Temp 36.4 C 04/18/20 11:49 Pulse 97 04/18/20 11:49 Resp 16 04/18/20 11:49 BP 145/108 H 04/18/20 11:49 Pulse Ox 98 04/18/20 11:49 Weight - Most Recent: 73.936 kg I&O - Last 24 hours: Intake & Output 04/17/20 04/18/20 04/18/20 22:59 06:59 14:59 Intake Total 2301 100 Output Total 1200 750 Balance 1101 -650 Lab Results - Last 24 hrs: Laboratory Results - last 24 hr 04/18/20 04/18/20 Range/Units 06:01 06:01 WBC 6.09 (4.0-11.0) K/uL RBC 3.84 L (4.30-5.90) M/uL Hgb 11.9 L (12.0-16.0) g/dL Hct 36.8 (36.0-46.0) % MCV 95.8 (80.0-98.0) fL MCH 31.0 (27.0-32.0) pg MCHC 32.3 (31.0-37.0) g/dL RDW Std Deviation 43.1 (28.0-62.0) fl RDW Coeff of [place] 12 (11.0-15.0) % Plt Count 235 (150-400) K/uL MPV 8.80 (7.40-12.00) fL Neut % (Auto) 45.9 L (48.0-80.0) % Lymph % (Auto) 38.8 (16.0-40.0) % [place] % (Auto) 12.2 (0.0-15.0) % Eos % (Auto) 2.6 (0.0-7.0) % Baso % (Auto) 0.5 (0.0-1.5) % Neut # (Auto) 2.8 (1.4-5.7) K/uL Lymph # (Auto) 2.4 (0.6-2.4) K/uL [place] # (Auto) 0.7 (0.0-0.8) K/uL Eos # (Auto) 0.2 (0.0-0.7) K/uL Baso # (Auto) 0.0 (0.0-0.1) K/uL Nucleated RBC % 0.0 /100WBC Nucleated RBCs # 0 K/uL Sodium 137 (136-145) mmol/L Potassium 3.9 (3.5-5.1) mmol/L Chloride 102 (98-107) mmol/L Carbon Dioxide 28.9 (21.0-32.0) mmol/L BUN 2 L (7.0-18.0) mg/dL Creatinine 0.6 (0.6-1.0) mg/dL Est Cr Clr Drug Dosing 115.16 mL/min Estimated GFR (MDRD) > 60.0 ml/min Glucose 102 (74-106) mg/dL Calcium 8.8 (8.5-10.1) mg/dL Total Bilirubin 0.4 (0.2-1.0) mg/dL AST 50 H (15-37) IU/L ALT 52 (14-63) IU/L Alkaline Phosphatase 98 (46-116) U/L Total Protein 6.2 L (6.4-8.2) g/dL Albumin 3.1 L (3.4-5.0) g/dL Globulin 3.1 (2.6-4.0) g/dL Albumin/Globulin Ratio 1.0 (0.9-1.6) Med Orders - Current: Current Medications Discontinued Medications Enoxaparin Sodium (Lovenox) 40 mg SUBCUT Q24H [facility] Last Admin: 04/18/20 09:56 Dose: 40 mg Documented by: Folic Acid (Folic Acid) 1 mg SUBCUT DAILY [facility] Last Admin: 04/18/20 09:51 Dose: 1 mg Documented by: Hydromorphone HCl (Dilaudid) 1 mg IVPUSH ONETIME ONE Stop: 04/16/20 01:14 Last Admin: 04/16/20 01:21 Dose: 1 mg Documented by: Hydromorphone HCl (Dilaudid) 0.5 mg IVPUSH Q2H PRN PRN Reason: Pain Last Admin: 04/18/20 09:21 Dose: 0.5 mg Documented by: Dextrose/Lactated Ringer's (Dextrose 5%-Lactated Ringers) 1,000 mls @ 999 mls/hr IV ASDIRECTED [facility] Last Admin: 04/16/20 01:19 Dose: 999 mls/hr Documented by: Lactated Ringer's (Ringers, Lactated) 1,000 mls @ 125 mls/hr IV ASDIRECTED [facility] Last Admin: 04/16/20 04:21 Dose: 125 mls/hr Documented by: Lactated Ringer's (Ringers, Lactated) 1,000 mls @ 999 mls/hr IV BOLUS ONE Stop: 04/16/20 07:25 Last Admin: 04/16/20 06:28 Dose: 999 mls/hr Documented by: Lactated Ringer's (Ringers, Lactated) 1,000 mls @ 200 mls/hr IV ASDIRECTED [facility] Last Admin: 04/18/20 10:09 Dose: 200 mls/hr Documented by: Thiamine HCl 100 mg/ Sodium (Chloride) 101 mls @ 202 mls/hr IV DAILY [facility] Last Admin: 04/18/20 11:29 Dose: 202 mls/hr Documented by: Iopamidol (Isovue-370 (76%)) 100 ml IVPUSH ONETIME STA Stop: 04/16/20 02:45 Last Admin: 04/16/20 02:46 Dose: 100 ml Documented by: Lorazepam (Ativan) 1 - 3 mg IVPUSH Q4H PRN; Protocol PRN Reason: Anxiety Last Admin: 04/16/20 06:49 Dose: 2 mg Documented by: Lorazepam (Ativan) 0 mg IVPUSH Q4H PRN; Protocol PRN Reason: CIWAA Last Admin: 04/17/20 08:05 Dose: 1 mg Documented by: Morphine Sulfate (Morphine) 4 mg IVPUSH ONETIME ONE Stop: 04/16/20 03:05 Last Admin: 04/16/20 03:24 Dose: 4 mg Documented by: Morphine Sulfate (Morphine) 2 mg IVPUSH Q3H PRN PRN Reason: Pain Last Admin: 04/16/20 06:46 Dose: 2 mg Documented by: Ondansetron HCl (Zofran) 4 mg IVPUSH ONETIME ONE Stop: 04/16/20 01:16 Last Admin: 04/16/20 01:20 Dose: 4 mg Documented by: Ondansetron HCl (Zofran) 4 mg IVPUSH Q4H PRN PRN Reason: Nausea/Vomiting <Jeff Isaacs - Last Filed: 04/21/20 22:25> Discharge Summary - Referral to Home Health Primary Care Physician: Jarrett Harper MD - Patient Data Vitals - Most Recent: Last Vital Signs Temp 36.4 C 04/18/20 11:49 Pulse 97 04/18/20 11:49 Resp 16 04/18/20 11:49 BP 145/108 H 04/18/20 11:49 Pulse Ox 98 04/18/20 11:49 Med Orders - Current: Current Medications Discontinued Medications Enoxaparin Sodium (Lovenox) 40 mg SUBCUT Q24H [facility] Last Admin: 04/18/20 09:56 Dose: 40 mg Documented by: Folic Acid (Folic Acid) 1 mg SUBCUT DAILY [facility] Last Admin: 04/18/20 09:51 Dose: 1 mg Documented by: Hydromorphone HCl (Dilaudid) 1 mg IVPUSH ONETIME ONE Stop: 04/16/20 01:14 Last Admin: 04/16/20 01:21 Dose: 1 mg Documented by: Hydromorphone HCl (Dilaudid) 0.5 mg IVPUSH Q2H PRN PRN Reason: Pain Last Admin: 04/18/20 09:21 Dose: 0.5 mg Documented by: Dextrose/Lactated Ringer's (Dextrose 5%-Lactated Ringers) 1,000 mls @ 999 mls/hr IV ASDIRECTED [facility] Last Admin: 04/16/20 01:19 Dose: 999 mls/hr Documented by: Lactated Ringer's (Ringers, Lactated) 1,000 mls @ 125 mls/hr IV ASDIRECTED [facility] Last Admin: 04/16/20 04:21 Dose: 125 mls/hr Documented by: Lactated Ringer's (Ringers, Lactated) 1,000 mls @ 999 mls/hr IV BOLUS ONE Stop: 04/16/20 07:25 Last Admin: 04/16/20 06:28 Dose: 999 mls/hr Documented by: Lactated Ringer's (Ringers, Lactated) 1,000 mls @ 200 mls/hr IV ASDIRECTED [facility] Last Admin: 04/18/20 10:09 Dose: 200 mls/hr Documented by: Thiamine HCl 100 mg/ Sodium (Chloride) 101 mls @ 202 mls/hr IV DAILY [facility] Last Admin: 04/18/20 11:29 Dose: 202 mls/hr Documented by: Iopamidol (Isovue-370 (76%)) 100 ml IVPUSH ONETIME STA Stop: 04/16/20 02:45 Last Admin: 04/16/20 02:46 Dose: 100 ml Documented by: Lorazepam (Ativan) 1 - 3 mg IVPUSH Q4H PRN; Protocol PRN Reason: Anxiety Last Admin: 04/16/20 06:49 Dose: 2 mg Documented by: Lorazepam (Ativan) 0 mg IVPUSH Q4H PRN; Protocol PRN Reason: CIWAA Last Admin: 04/17/20 08:05 Dose: 1 mg Documented by: Morphine Sulfate (Morphine) 4 mg IVPUSH ONETIME ONE Stop: 04/16/20 03:05 Last Admin: 04/16/20 03:24 Dose: 4 mg Documented by: Morphine Sulfate (Morphine) 2 mg IVPUSH Q3H PRN PRN Reason: Pain Last Admin: 04/16/20 06:46 Dose: 2 mg Documented by: Ondansetron HCl (Zofran) 4 mg IVPUSH ONETIME ONE Stop: 04/16/20 01:16 Last Admin: 04/16/20 01:20 Dose: 4 mg Documented by: Ondansetron HCl (Zofran) 4 mg IVPUSH Q4H PRN PRN Reason: Nausea/Vomiting - Free Text/Narrative Note: I have seen and evaluated the patient. I have discussed findings and treatment plan with resident. I agree with the assessment and plan in the following note.
== END 2020-04-18 11:49 | disposition home or self-care (01) | DRG 439 ==
LOC: MW.ED 00:55 → MW.MS 05:18
PROVIDERS: ADMIT Internal Medicine; ATTEND Internal Medicine
DX: K85.20 Alcohol induced acute pancreatitis without necrosis or infection (principal); K86.2 Cyst of pancreas; F10.20 Alcohol dependence, uncomplicated; F41.9 Anxiety disorder, unspecified; F32.9 Major depressive disorder, single episode, unspecified; K86.89 Other specified diseases of pancreas; Z20.828 Contact with and (suspected) exposure to other viral communicable diseases; Y90.0 Blood alcohol level of less than 20 mg/100 ml
CPT/HCPCS: 36415; 74177; 74177-26; 80053; 80307; 81025; 83690; 85025; 96374; 96375; 99284; 99285-25; J1170; J1650; J2060; J2270; J2405; J3411; J7120; J7121; Q9967; U0002

== ENCOUNTER 2020-07-15 15:37 | Emergency (ER) | payer BC, OTHER ==
[2020-07-15] MEDS ORDERED: Sodium Chloride 0.9% 10 ML Syringe FLUSH PRN (15:42)
[2020-07-15] MEDS ORDERED: Sodium Chloride 0.9% 2.5 ML Syringe FLUSH PRN (15:42)
[2020-07-15] MEDS ORDERED: Lactated Ringers 1,000 ML IV ONE (15:59)
[2020-07-15] MEDS ORDERED: HYDROmorphone 2 MG/ML Syringe IVPUSH ONE (15:59)
[2020-07-15] MEDS ORDERED: Ondansetron 4 MG/2 ML SDV IVPUSH ONE (15:59)
--- NOTE | 2020-07-15 15:59 | EDM.PDOC ---
ED HPI GENERAL MEDICAL PROBLEM - General Chief Complaint: Abdominal Pain Stated Complaint: ABDOMINAL PAIN Time Seen by Provider: 07/15/20 15:41 Source of Information: Reports: Patient History Limitations: Reports: No Limitations - History of Present Illness INITIAL COMMENTS - FREE TEXT/NARRATIVE: 35-year-old female with history of pancreatitis secondary to alcohol abuse, UTI presents with abdominal pain today. Pain is localized to the upper abdomen, described as sharp, moderate, constant, nonradiating, no alleviating or exacerbating factors. She drank alcohol yesterday. She admits to nausea. She denies fever, chills, vomiting, diarrhea, dysuria. ROS: A 10-point review of systems, other than pertinent positives and negatives as stated per HPI, is otherwise negative Past medical history: No additional pertinent history Past Surgical history: No additional pertinent history Social history: No additional pertinent history Family history: No additional pertinent history PHYSICAL EXAM General: AOx4, GCS = 15, moderate distress HEENT: dry mucous membrane Neck: supple, no meningismus, no Kernig or Brudzinski Cardiac: S1S2 tachycardia Respiratory: CTAB, no crackles or rales, no wheezing Abdomen: Soft, epigastric tenderness, no rebound or guarding, nondistended, no pulsatile mass. Back: nontender Musculoskeletal: NVI distally, no deformity Neuro: No focal deficits, CN 2 - 12 WNL. Upper Abdomen Pain Score (Numeric/FACES): 8 - Related Data Allergies Allergy/AdvReac Type Severity Reaction Status Date / Time No Known Allergies Allergy Verified 07/15/20 15:43 Home Meds: Home Meds Acetaminophen/oxyCODONE [Percocet 325-5 MG] 1 tab PO BID #10 tablet 09/22/19 [Rx] Anti-Anxiety 04/16/20 [History] DULoxetine [Cymbalta] 20 mg PO DAILY 07/15/20 [History] Naproxen [Naprosyn] 500 mg PO Q12HR #30 tab 07/15/20 [Rx] Ondansetron [Zofran ODT] 4 mg PO Q6H PRN #12 tab.dis 07/15/20 [Rx] Past Medical History - Past Health History Medical/Surgical History: Denies Medical/Surgical History HEENT History: Reports: None Cardiovascular History: Reports: Blood Clots/VTE/DVT Other Cardiovascular History: blood clot on the liver Respiratory History: Reports: None Gastrointestinal History: Reports: Pancreatitis Genitourinary History: Reports: None [employer] 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: 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: 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 Musculoskeletal History: Reports: None Neurological History: Reports: None Psychiatric History: Reports: Addiction, Anxiety, Depression Other Psychiatric History: ETOH Endocrine/Metabolic History: Reports: None Hematologic History: Reports: None Immunologic History: Reports: None Oncologic (Cancer) History: Reports: None Dermatologic History: Reports: None - Infectious Disease History Infectious Disease History: Reports: Chicken Pox - Past Surgical History Head Surgeries/Procedures: Reports: None HEENT Surgical History: Reports: None Cardiovascular Surgical History: Reports: None Respiratory Surgical History: Reports: None GI Surgical History: Reports: EGD Female Surgical History: Reports: None Endocrine Surgical History: Reports: None Neurological Surgical History: Reports: None Musculoskeletal Surgical History: Reports: None Oncologic Surgical History: Reports: None Dermatological Surgical History: Reports: None Social & Family History - Family History Family Medical History: No Pertinent Family History Cardiac: Reports: [place] - Tobacco Use Tobacco Use Status *Q: Never Tobacco User - Caffeine Use Caffeine Use: Reports: Soda Other Caffeine Use: 2 Diet Cokes a day - Recreational Drug Use Recreational Drug Use: No - Living Situation & Occupation Living situation: Reports: Single Occupation: Unemployed ED ROS GENERAL - Review of Systems Review Of Systems: See Below (see dictation) ED EXAM, GENERAL - Physical Exam Exam: See Below (see dictation) Course - Vital Signs Last Recorded V/S: Last Vital Signs Temp 97.2 F 07/15/20 15:45 Pulse 112 H 07/15/20 15:45 Resp 16 07/15/20 15:45 BP 145/97 H 07/15/20 15:45 Pulse Ox 100 07/15/20 15:45 - Orders/Labs/Meds Orders: Active Orders 24 hr Category Date Time Status Sodium Chloride 0.9% [Saline Flush] Med 07/15/20 15:42 Active 10 ml FLUSH ASDIRECTED PRN Sodium Chloride 0.9% [Saline Flush] Med 07/15/20 15:42 Active 2.5 ml FLUSH ASDIRECTED PRN Saline Lock Insert [OM.PC] Stat Oth 07/15/20 15:42 Ordered Medication Orders Sodium Chloride (Saline Flush) 10 ml FLUSH ASDIRECTED PRN PRN Reason: Keep Vein Open Last Admin: 07/15/20 15:53 Dose: 10 ml Documented by: SHAKIR Sodium Chloride (Saline Flush) 2.5 ml FLUSH ASDIRECTED PRN PRN Reason: Keep Vein Open Last Admin: 07/15/20 15:52 Dose: 2.5 ml Documented by: SHAKIR Labs: Laboratory Tests 07/15/20 07/15/20 07/15/20 Range/Units 15:50 15:50 15:51 WBC 15.18 H (4.0-11.0) K/uL RBC 3.45 L (4.30-5.90) M/uL Hgb 8.9 L (12.0-16.0) g/dL Hct 29.0 L (36.0-46.0) % MCV 84.1 (80.0-98.0) fL MCH 25.8 L (27.0-32.0) pg MCHC 30.7 L (31.0-37.0) g/dL RDW Std Deviation 44.2 (28.0-62.0) fl RDW Coeff of [place] 14 (11.0-15.0) % Plt Count 403 H (150-400) K/uL MPV 8.10 (7.40-12.00) fL Neut % (Auto) 66.3 (48.0-80.0) % Lymph % (Auto) 25.4 (16.0-40.0) % [place] % (Auto) 7.5 (0.0-15.0) % Eos % (Auto) 0.5 (0.0-7.0) % Baso % (Auto) 0.3 (0.0-1.5) % Neut # (Auto) 10.1 H (1.4-5.7) K/uL Lymph # (Auto) 3.9 H (0.6-2.4) K/uL [place] # (Auto) 1.1 H (0.0-0.8) K/uL Eos # (Auto) 0.1 (0.0-0.7) K/uL Baso # (Auto) 0.0 (0.0-0.1) K/uL Nucleated RBC % 0.0 /100WBC Nucleated RBCs # 0 K/uL Sodium 135 L (136-145) mmol/L Potassium 3.6 (3.5-5.1) mmol/L Chloride 100 (98-107) mmol/L Carbon Dioxide 23.4 (21.0-32.0) mmol/L BUN 13 (7.0-18.0) mg/dL Creatinine 0.7 (0.6-1.0) mg/dL Est Cr Clr Drug Dosing 97.79 mL/min Estimated GFR (MDRD) > 60.0 ml/min Glucose 123 H (74-106) mg/dL Calcium 9.1 (8.5-10.1) mg/dL Total Bilirubin 0.3 (0.2-1.0) mg/dL AST 22 (15-37) IU/L ALT 26 (14-63) IU/L Alkaline Phosphatase 108 (46-116) U/L Total Protein 8.1 (6.4-8.2) g/dL Albumin 3.9 (3.4-5.0) g/dL Globulin 4.2 H (2.6-4.0) g/dL Albumin/Globulin Ratio 0.9 (0.9-1.6) Lipase 425 H (73-393) U/L Urine Color Urine Appearance Urine pH (5.0-8.0) Ur Specific [place] (1.001-1.035) Urine Protein (NEGATIVE) mg/dL Urine Glucose (UA) (NEGATIVE) mg/dL Urine Ketones (NEGATIVE) mg/dL Urine Occult Blood (NEGATIVE) Urine Nitrite (NEGATIVE) Urine Bilirubin (NEGATIVE) Urine Urobilinogen (<2.0) EU/dL Ur Leukocyte Esterase (NEGATIVE) Urine RBC (0-2/HPF) Urine WBC (0-5/HPF) Ur Epithelial Cells (NONE-FEW) Urine Bacteria (NEGATIVE) Urine HCG, Qual NEGATIVE (NEGATIVE) 07/15/20 Range/Units 15:51 WBC (4.0-11.0) K/uL RBC (4.30-5.90) M/uL Hgb (12.0-16.0) g/dL Hct (36.0-46.0) % MCV (80.0-98.0) fL MCH (27.0-32.0) pg MCHC (31.0-37.0) g/dL RDW Std Deviation (28.0-62.0) fl RDW Coeff of [place] (11.0-15.0) % Plt Count (150-400) K/uL MPV (7.40-12.00) fL Neut % (Auto) (48.0-80.0) % Lymph % (Auto) (16.0-40.0) % [place] % (Auto) (0.0-15.0) % Eos % (Auto) (0.0-7.0) % Baso % (Auto) (0.0-1.5) % Neut # (Auto) (1.4-5.7) K/uL Lymph # (Auto) (0.6-2.4) K/uL [place] # (Auto) (0.0-0.8) K/uL Eos # (Auto) (0.0-0.7) K/uL Baso # (Auto) (0.0-0.1) K/uL Nucleated RBC % /100WBC Nucleated RBCs # K/uL Sodium (136-145) mmol/L Potassium (3.5-5.1) mmol/L Chloride (98-107) mmol/L Carbon Dioxide (21.0-32.0) mmol/L BUN (7.0-18.0) mg/dL Creatinine (0.6-1.0) mg/dL Est Cr Clr Drug Dosing mL/min Estimated GFR (MDRD) ml/min Glucose (74-106) mg/dL Calcium (8.5-10.1) mg/dL Total Bilirubin (0.2-1.0) mg/dL AST (15-37) IU/L ALT (14-63) IU/L Alkaline Phosphatase (46-116) U/L Total Protein (6.4-8.2) g/dL Albumin (3.4-5.0) g/dL Globulin (2.6-4.0) g/dL Albumin/Globulin Ratio (0.9-1.6) Lipase (73-393) U/L Urine Color YELLOW Urine Appearance CLEAR Urine pH 6.5 (5.0-8.0) Ur Specific [place] 1.025 (1.001-1.035) Urine Protein TRACE H (NEGATIVE) mg/dL Urine Glucose (UA) NEGATIVE (NEGATIVE) mg/dL Urine Ketones NEGATIVE (NEGATIVE) mg/dL Urine Occult Blood NEGATIVE (NEGATIVE) Urine Nitrite NEGATIVE (NEGATIVE) Urine Bilirubin NEGATIVE (NEGATIVE) Urine Urobilinogen 0.2 (<2.0) EU/dL Ur Leukocyte Esterase TRACE H (NEGATIVE) Urine RBC 0-2 (0-2/HPF) Urine WBC 1-3 (0-5/HPF) Ur Epithelial Cells RARE (NONE-FEW) Urine Bacteria 2+ H (NEGATIVE) Urine HCG, Qual (NEGATIVE) Meds: Medications Generic Name Dose Route Start Last Admin Trade Name Freq PRN Reason Stop Dose Admin Sodium Chloride 10 ml 07/15/20 15:42 07/15/20 15:53 Saline Flush FLUSH 10 ml ASDIRECTED PRN Administration Keep Vein Open Sodium Chloride 2.5 ml 07/15/20 15:42 07/15/20 15:52 Saline Flush FLUSH 2.5 ml ASDIRECTED PRN Administration Keep Vein Open Discontinued Medications Generic Name Dose Route Start Last Admin Trade Name Freq PRN Reason Stop Dose Admin Hydromorphone HCl 1 mg 07/15/20 15:59 07/15/20 16:06 Dilaudid IVPUSH 07/15/20 16:00 1 mg ONETIME ONE Administration Lactated Ringer's 1,000 mls @ 999 mls/hr 07/15/20 15:59 07/15/20 16:06 Ringers, Lactated IV 07/15/20 16:59 999 mls/hr .BOLUS ONE Administration Ondansetron HCl 4 mg 07/15/20 15:59 07/15/20 16:08 Zofran IVPUSH 07/15/20 16:00 4 mg ONETIME ONE Administration - Re-Assessments/Exams Free Text/Narrative Re-Assessment/Exam: 07/15/20 17:30 After IV pain medication in the ER, she feels much better and is currently stable for discharge. I performed a repeat exam and did not appreciate new abnormal findings. Repeat exam showed soft abdomen with no right upper quadrant or Avalos sign. I do not suspect cholecystitis despite leukocytosis. I advised the patient to return to the ER for reevaluation if symptoms worsened, including fever, worsening pain, or any other worrisome symptoms. I instructed the patient to follow up with their PCP within 2-3 days. MEDICAL DECISION MAKING: I reviewed the patients past medical records, lab and radiographic findings. I discussed the case with the patient. My differential diagnosis included: Pancreatitis, gastritis. Patient had no tenderness to right upper quadrant. She had negative Avalos sign. Despite her having leukocytosis I do not suspect cholecystitis or choledocholithiasis or cholelithiasis. Patient's pain was resolved after IV fluids and Dilaudid, consistent with history of alcoholic pancreatitis. I gave her strict return precautions for worsening pain, fever, nausea, vomiting. Departure - Departure Time of Disposition: 17:35 Disposition: Home, Self-Care 01 Condition: Good Clinical Impression: Acute alcoholic pancreatitis Qualifiers: Acute pancreatitis complication: no infection or necrosis Qualified Code(s): K85.20 - Alcohol induced acute pancreatitis without necrosis or infection - Discharge Information *PRESCRIPTION DRUG MONITORING PROGRAM REVIEWED*: Not Applicable *COPY OF PRESCRIPTION DRUG MONITORING REPORT IN PATIENT RENÉE: Not Applicable Prescriptions: Naproxen [Naprosyn] 500 mg PO Q12HR #30 tab Ondansetron [Zofran ODT] 4 mg PO Q6H PRN #12 tab.dis PRN Reason: Vomiting Instructions: Acute Pancreatitis, [id number], Pancreatitis Eating Plan Referrals: Jarrett Harper MD [Primary Care Provider] - Forms: ED Department Discharge Additional Instructions: The need for follow-up, as well as the timing and circumstances, are variable depending upon the specifics of your emergency department visit. If you don't have a primary care physician on staff, we will provide you with a referral. We always advise you to contact your personal physician following an emergency department visit to inform them of the circumstance of the visit and for follow-up with them and/or the need for any referrals to a consulting specialist. The emergency department will also refer you to a specialist when appropriate. This referral assures that you have the opportunity for follow-up care with a specialist. All of these measure are taken in an effort to provide you with optimal care, which includes your follow-up. Under all circumstances we always encourage you to contact your private physician who remains a resource for coordinating your care. When calling for follow-up care, please make the office aware that this follow-up is from your recent emergency room visit. If for any reason you are refused follow-up, please contact the [facility] Emergency Department at and asked to speak to the emergency department charge nurse. If you do not have a primary care doctor, please follow up with the clinics below within 3-5 days. [facility] - Primary [facility] [address] [place] [id number] [facility] [address] [place] [id number] Sepsis Event Note (ED) - Evaluation Sepsis Screening Result: No Definite Risk - Focused Exam Vital Signs: Vital Signs Temp Pulse Resp BP Pulse Ox 07/15/20 15:45 97.2 F 112 H 16 145/97 H 100 - My Orders Last 24 Hours: My Active Orders 07/15/20 15:42 Sodium Chloride 0.9% [Saline Flush] 10 ml FLUSH ASDIRECTED PRN Sodium Chloride 0.9% [Saline Flush] 2.5 ml FLUSH ASDIRECTED PRN Saline Lock Insert [OM.PC] Stat - Assessment/Plan Last 24 Hours: My Active Orders 07/15/20 15:42 Sodium Chloride 0.9% [Saline Flush] 10 ml FLUSH ASDIRECTED PRN Sodium Chloride 0.9% [Saline Flush] 2.5 ml FLUSH ASDIRECTED PRN Saline Lock Insert [OM.PC] Stat
[2020-07-15 16:17] LABS: BLOOD UREA NITROGEN,BUN 13 mg/dL (7.0-18.0); CARBON DIOXIDE,CO2 23.4 mmol/L (21.0-32.0); CHLORIDE,CL 100 mmol/L (98-107); GLUCOSE RANDOM 123 mg/dL (74-106); LIPASE 425 U/L (73-393); POTASSIUM,K 3.6 mmol/L (3.5-5.1); SODIUM,NA 135 mmol/L (136-145)
== END 2020-07-15 17:52 | disposition home or self-care (01) ==
LOC: MW.ED 15:37
DX: K85.20 Alcohol induced acute pancreatitis without necrosis or infection (principal); R00.0 Tachycardia, unspecified
CPT/HCPCS: 80053; 81001; 81025; 83690; 85025; 96374; 96375; 99284; J1170; J2405; J7120; 99283

== ENCOUNTER 2020-07-17 10:15 | Inpatient (IN) | payer BC ==
[2020-07-17] MEDS ORDERED: Sodium Chloride 0.9% 10 ML Syringe FLUSH PRN (10:41)
[2020-07-17] MEDS ORDERED: Ondansetron 4 MG/2 ML SDV IVPUSH ONE (10:41)
[2020-07-17] MEDS ORDERED: Sodium Chloride 0.9% 1,000 ML IV ONE ×2 (10:41→12:49)
[2020-07-17] MEDS ORDERED: Sodium Chloride 0.9% 2.5 ML Syringe FLUSH PRN ×2 (10:41→13:54)
[2020-07-17] MEDS ORDERED: HYDROmorphone 1 MG/ML Syringe IVPUSH ONE ×2 (10:41→13:12)
--- NOTE | 2020-07-17 10:49 | EDM.PDOC ---
ED HPI GENERAL MEDICAL PROBLEM - General Chief Complaint: Abdominal Pain Stated Complaint: STOMACH PAIN Time Seen by Provider: 07/17/20 10:35 Source of Information: Reports: Patient History Limitations: Reports: No Limitations - History of Present Illness INITIAL COMMENTS - FREE TEXT/NARRATIVE: HISTORY AND PHYSICAL: History of present illness: Patient is a 35-year-old female who presents to the emergency room with complaints of epigastric pain that radiates into her back, nausea and vomiting over the past few days. Patient has a history of pancreatitis due to alcohol abuse. Patient was seen in our emergency room yesterday for mild pancreatitis and was comfortable for discharge to home. Her lipase at that time was 425 with a white count of 15. She states she has been able to keep fluids down but the pain is "unbearable". She states that her primary care provider did call her in some Percocet although this is not managing her pain well. She denies any recent alcohol use/abuse. Patient denies any fever, chills, headache, change in vision, syncope or near syncope. Denies any chest pain, back pain, shortness of breath or cough. Denies any diarrhea, constipation or dysuria. Has not noted any blood in urine or stool. Patient has been eating and drinking appropriately. Review of systems: As per history of present illness and below otherwise all systems reviewed and negative. Past medical history: As per history of present illness and as reviewed below otherwise noncontributory. Surgical history: As per history of present illness and as reviewed below otherwise noncontributory. Social history: See social history for further information Family history: As per history of present illness and as reviewed below otherwise noncontributory. Physical exam: General: Well developed and well nourished. Alert and orientated x 3. Nontoxic in appearance and in no acute distress. Vital signs are stable and have been reviewed by me. Nursing notes were reviewed. HEENT: Atraumatic, normocephalic, pupils equal and reactive bilaterally, negative for conjunctival pallor or scleral icterus, mucous membranes moist, TMs normal bilaterally, throat clear, neck supple, nontender, trachea midline. No drooling or trismus noted. No meningeal signs. No hot potato voice noted. Lungs: Clear to auscultation bilaterally. No wheezes, rales, or rhonchi. Chest nontender. Normal work of breathing, no accessory muscles used. Heart: S1S2, regular rate and rhythm without overt murmur, gallops, or rubs. No JVD. No peripheral edema Abdomen: Soft, nondistended, nontender. Normoactive bowel sounds. Negative for masses or costovertebral tenderness. Pelvis: Stable nontender. Genitourinary/Rectal: Deferred. Skin: Intact, warm, dry. No lesions or rashes noted. Hematologic: No petechiae or purpra. Mucosa appropriate color and normal nail bed color and refill. Extremities: Atraumatic, moves all extremities per self without difficulty or deficits, negative for cords or calf pain. Neurovascular unremarkable. Neuro: Awake, alert, oriented. Cranial nerves II through XII unremarkable. Cerebellum unremarkable. Motor and sensory unremarkable throughout. Exam nonfocal. Psychiatric: Mood and affect are appropriate. Normal thought process. Answering questions appropriately. Notes: *This patient was seen and evaluated during the 2019 SARS-CoV-2 novel coronavirus pandemic period. Community viral transmission is ongoing at time of this encounter and the emergency department is operating under pandemic response procedures. Patient did have a negative urine test yesterday, will not repeat this today. Patient's WBC 14.3, lipase is 1613 (was 425 on 07/15/20). She does have +2 bacteria in her urine, urine culture has been added. CT scan shows heterogen eous lesion in the pancreatic neck with surrounding peripancreatic adenopathy and upper abdominal varices. In light of the elevated lipase, findings likely represent acute on chronic pancreatitis. I have talked with the patient about today's findings, in addition to providing specific details for plan of care. Reassessment at the time of disposition demonstrates that the patient is in no acute distress. She states that her pain is returning and she has mild nausea that is persistent. I did encourage her for admission which she is agreeable. She agrees that she probably would not do well at home and would likely return to the emergency room. Dr. Last/Oleg were consulted on this patient and they are agreeable to excepting her for further care and management. Diagnostics: CBC, CMP, UA, lipase, CT abdomen and pelvis Therapeutics: IV fluid, Zofran, Dilaudid, Rocephin Impression: Pancreatitis UTI Plan: Inpatient admission Definitive disposition and diagnosis as appropriate pending reevaluation and review of above. upper abdomen, back Pain Score (Numeric/FACES): 9 - Related Data Allergies Allergy/AdvReac Type Severity Reaction Status Date / Time No Known Allergies Allergy Verified 07/17/20 14:49 Home Meds: Home Meds Ondansetron [Zofran ODT] 4 mg PO Q6H PRN #12 tab.dis 07/15/20 [Rx] Acetaminophen/oxyCODONE [Percocet 325-5 MG] 1 tab PO BID PRN 07/17/20 [History] Past Medical History - Past Health History Medical/Surgical History: Denies Medical/Surgical History HEENT History: Reports: None Cardiovascular History: Reports: Blood Clots/VTE/DVT Other Cardiovascular History: blood clot on the liver Respiratory History: Reports: None Gastrointestinal History: Reports: Pancreatitis Genitourinary History: Reports: None 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: Reports: None Musculoskeletal History: Reports: None Neurological History: Reports: None Psychiatric History: Reports: Addiction, Anxiety, Depression Other Psychiatric History: ETOH Endocrine/Metabolic History: Reports: None Hematologic History: Reports: None Immunologic History: Reports: None Oncologic (Cancer) History: Reports: None Dermatologic History: Reports: None - Infectious Disease History Infectious Disease History: Reports: Chicken Pox - Past Surgical History Head Surgeries/Procedures: Reports: None HEENT Surgical History: Reports: None Cardiovascular Surgical History: Reports: None Respiratory Surgical History: Reports: None GI Surgical History: Reports: EGD Female Surgical History: Reports: None Endocrine Surgical History: Reports: None Neurological Surgical History: Reports: None Musculoskeletal Surgical History: Reports: None Oncologic Surgical History: Reports: None Dermatological Surgical History: Reports: None Social & Family History - Family History Family Medical History: No Pertinent Family History Cardiac: Reports: [facility] - Tobacco Use Tobacco Use Status *Q: Never Tobacco User - Caffeine Use Caffeine Use: Reports: Soda Other Caffeine Use: 2 Diet Cokes a day - Recreational Drug Use Recreational Drug Use: No - Living Situation & Occupation Living situation: Reports: Single Occupation: Unemployed ED ROS GENERAL - Review of Systems Review Of Systems: Comprehensive ROS is negative, except as noted in HPI. ED EXAM, GI/ABD - Physical Exam Exam: See Below (See dictation) Course - Vital Signs Last Recorded V/S: Last Vital Signs Temp 98 F 07/17/20 14:17 Pulse 105 H 07/17/20 14:17 Resp 18 07/17/20 14:17 BP 133/76 07/17/20 14:17 Pulse Ox 97 07/17/20 15:00 - Orders/Labs/Meds Orders: Active Orders 24 hr Category Date Time Status Admission Status [Patient Status] [ADT] Stat ADT 07/17/20 13:07 Active CULTURE URINE [RM] Stat Lab 07/17/20 10:50 Received Medication Orders Bisacodyl (Dulcolax) 10 mg RECTAL DAILY PRN PRN Reason: Constipation Docusate Sodium (Colace) 100 mg PO BID PRN PRN Reason: Constipation Folic Acid (Folic Acid) 1 mg SUBCUT DAILY [facility] Last Admin: 07/17/20 15:17 Dose: 1 mg Documented by: LUCY Hydromorphone HCl (Dilaudid) 0.5 mg IVPUSH Q2H PRN PRN Reason: Pain (severe 7-10) Last Admin: 07/17/20 15:31 Dose: 0.5 mg Documented by: LUCY Lactated Ringer's (Ringers, Lactated) 1,000 mls @ 200 mls/hr IV Q5H [facility] Thiamine HCl 100 mg/ Sodium (Chloride) 101 mls @ 202 mls/hr IV DAILY [facility] Last Admin: 07/17/20 15:18 Dose: 202 mls/hr Documented by: LUCY Pantoprazole Sodium 40 mg/ (Sodium Chloride) 10 mls @ 300 mls/hr IV Q12H [facility] Last Admin: 07/17/20 15:17 Dose: 300 mls/hr Documented by: LUCY Labetalol HCl (Normodyne) 10 mg IVPUSH Q4H PRN PRN Reason: SBP>180 Lorazepam (Ativan) 0 mg IVPUSH Q4H PRN; Protocol PRN Reason: CIWAA Ondansetron HCl (Zofran) 4 mg IVPUSH Q4H PRN PRN Reason: Nausea Sodium Chloride (Saline Flush) 2.5 ml FLUSH ASDIRECTED PRN PRN Reason: Keep Vein Open Sodium Chloride (Normal Saline) 10 ml IV ASDIRECTED PRN PRN Reason: IV Use Labs: Laboratory Tests 07/17/20 07/17/20 07/17/20 Range/Units 10:45 10:45 10:50 WBC 14.30 H (4.0-11.0) K/uL RBC 3.26 L (4.30-5.90) M/uL Hgb 8.2 L (12.0-16.0) g/dL Hct 27.4 L (36.0-46.0) % MCV 84.0 (80.0-98.0) fL MCH 25.2 L (27.0-32.0) pg MCHC 29.9 L (31.0-37.0) g/dL RDW Std Deviation 44.9 (28.0-62.0) fl RDW Coeff of [place] 15 (11.0-15.0) % Plt Count 409 H (150-400) K/uL MPV 8.50 (7.40-12.00) fL Neut % (Auto) 77.5 (48.0-80.0) % Lymph % (Auto) 14.9 L (16.0-40.0) % [place] % (Auto) 6.9 (0.0-15.0) % Eos % (Auto) 0.4 (0.0-7.0) % Baso % (Auto) 0.3 (0.0-1.5) % Neut # (Auto) 11.1 H (1.4-5.7) K/uL Lymph # (Auto) 2.1 (0.6-2.4) K/uL Sampson # (Auto) 1.0 H (0.0-0.8) K/uL Eos # (Auto) 0.1 (0.0-0.7) K/uL Baso # (Auto) 0.1 (0.0-0.1) K/uL Nucleated RBC % 0.0 /100WBC Nucleated RBCs # 0 K/uL Sodium 136 (136-145) mmol/L Potassium 4.1 (3.5-5.1) mmol/L Chloride 104 (98-107) mmol/L Carbon Dioxide 19.1 L (21.0-32.0) mmol/L BUN 15 (7.0-18.0) mg/dL Creatinine 0.8 (0.6-1.0) mg/dL Est Cr Clr Drug Dosing 85.56 mL/min Estimated GFR (MDRD) > 60.0 ml/min Glucose 114 H (74-106) mg/dL Calcium 9.1 (8.5-10.1) mg/dL Total Bilirubin 0.3 (0.2-1.0) mg/dL AST 22 (15-37) IU/L ALT 24 (14-63) IU/L Alkaline Phosphatase 100 (46-116) U/L Total Protein 7.8 (6.4-8.2) g/dL Albumin 3.9 (3.4-5.0) g/dL Globulin 3.9 (2.6-4.0) g/dL Albumin/Globulin Ratio 1.0 (0.9-1.6) Lipase 1613 H (73-393) U/L Urine Color YELLOW Urine Appearance CLEAR Urine pH 6.0 (5.0-8.0) Ur Specific [place] 1.025 (1.001-1.035) Urine Protein NEGATIVE (NEGATIVE) mg/dL Urine Glucose (UA) NEGATIVE (NEGATIVE) mg/dL Urine Ketones NEGATIVE (NEGATIVE) mg/dL Urine Occult Blood SMALL H (NEGATIVE) Urine Nitrite NEGATIVE (NEGATIVE) Urine Bilirubin NEGATIVE (NEGATIVE) Urine Urobilinogen 0.2 (<2.0) EU/dL Ur Leukocyte Esterase SMALL H (NEGATIVE) Urine RBC 2-4 (0-2/HPF) Urine WBC 0-2 (0-5/HPF) Ur Epithelial Cells MODERATE (NONE-FEW) Urine Bacteria 2+ H (NEGATIVE) Urine Mucus LIGHT (NONE-MOD) SARS-CoV-2 RNA (DENISSE) (NEGATIVE) 07/17/20 Range/Units 13:03 WBC (4.0-11.0) K/uL RBC (4.30-5.90) M/uL Hgb (12.0-16.0) g/dL Hct (36.0-46.0) % MCV (80.0-98.0) fL MCH (27.0-32.0) pg MCHC (31.0-37.0) g/dL RDW Std Deviation (28.0-62.0) fl RDW Coeff of [place] (11.0-15.0) % Plt Count (150-400) K/uL MPV (7.40-12.00) fL Neut % (Auto) (48.0-80.0) % Lymph % (Auto) (16.0-40.0) % Sampson % (Auto) (0.0-15.0) % Eos % (Auto) (0.0-7.0) % Baso % (Auto) (0.0-1.5) % Neut # (Auto) (1.4-5.7) K/uL Lymph # (Auto) (0.6-2.4) K/uL Sampson # (Auto) (0.0-0.8) K/uL Eos # (Auto) (0.0-0.7) K/uL Baso # (Auto) (0.0-0.1) K/uL Nucleated RBC % /100WBC Nucleated RBCs # K/uL Sodium (136-145) mmol/L Potassium (3.5-5.1) mmol/L Chloride (98-107) mmol/L Carbon Dioxide (21.0-32.0) mmol/L BUN (7.0-18.0) mg/dL Creatinine (0.6-1.0) mg/dL Est Cr Clr Drug Dosing mL/min Estimated GFR (MDRD) ml/min Glucose (74-106) mg/dL Calcium (8.5-10.1) mg/dL Total Bilirubin (0.2-1.0) mg/dL AST (15-37) IU/L ALT (14-63) IU/L Alkaline Phosphatase (46-116) U/L Total Protein (6.4-8.2) g/dL Albumin (3.4-5.0) g/dL Globulin (2.6-4.0) g/dL Albumin/Globulin Ratio (0.9-1.6) Lipase (73-393) U/L Urine Color Urine Appearance Urine pH (5.0-8.0) Ur Specific [place] (1.001-1.035) Urine Protein (NEGATIVE) mg/dL Urine Glucose (UA) (NEGATIVE) mg/dL Urine Ketones (NEGATIVE) mg/dL Urine Occult Blood (NEGATIVE) Urine Nitrite (NEGATIVE) Urine Bilirubin (NEGATIVE) Urine Urobilinogen (<2.0) EU/dL Ur Leukocyte Esterase (NEGATIVE) Urine RBC (0-2/HPF) Urine WBC (0-5/HPF) Ur Epithelial Cells (NONE-FEW) Urine Bacteria (NEGATIVE) Urine Mucus (NONE-MOD) SARS-CoV-2 RNA (DENISSE) NEGATIVE (NEGATIVE) Meds: Medications Generic Name Dose Route Start Last Admin Trade Name Freq PRN Reason Stop Dose Admin Bisacodyl 10 mg 07/17/20 14:15 Dulcolax RECTAL DAILY PRN Constipation Docusate Sodium 100 mg 07/17/20 14:15 Colace PO BID PRN Constipation Folic Acid 1 mg 07/17/20 14:30 07/17/20 15:17 Folic Acid SUBCUT 1 mg DAILY [facility] Administration Hydromorphone HCl 0.5 mg 07/17/20 14:15 07/17/20 15:31 Dilaudid IVPUSH 0.5 mg Q2H PRN Administration Pain (severe 7-10) Lactated Ringer's 1,000 mls @ 200 mls/hr 07/17/20 14:00 Ringers, Lactated IV Q5H [facility] Thiamine HCl 100 mg/ Sodium 101 mls @ 202 mls/hr 07/17/20 14:30 07/17/20 15:18 Chloride IV 202 mls/hr DAILY [facility] Administration Pantoprazole Sodium 40 mg/ 10 mls @ 300 mls/hr 07/17/20 14:30 07/17/20 15:17 Sodium Chloride IV 300 mls/hr Q12H [facility] Administration Labetalol HCl 10 mg 07/17/20 13:57 Normodyne IVPUSH Q4H PRN SBP>180 Lorazepam 0 mg 07/17/20 13:58 Ativan IVPUSH Q4H PRN CIWAA Protocol Ondansetron HCl 4 mg 07/17/20 14:15 Zofran IVPUSH Q4H PRN Nausea Sodium Chloride 2.5 ml 07/17/20 13:54 Saline Flush FLUSH ASDIRECTED PRN Keep Vein Open Sodium Chloride 10 ml 07/17/20 13:54 Normal Saline IV ASDIRECTED PRN IV Use Discontinued Medications Generic Name Dose Route Start Last Admin Trade Name Jackie PRN Reason Stop Dose Admin Hydromorphone HCl 1 mg 07/17/20 10:41 07/17/20 10:45 Dilaudid IVPUSH 07/17/20 10:42 1 mg ONETIME ONE Administration Hydromorphone HCl 1 mg 07/17/20 13:12 07/17/20 13:25 Dilaudid IVPUSH 07/17/20 13:13 1 mg ONETIME ONE Administration Sodium Chloride 1,000 mls @ 999 mls/hr 07/17/20 10:41 07/17/20 10:45 Normal Saline IV 07/17/20 11:41 999 mls/hr STAT ONE Administration Sodium Chloride 1,000 mls @ 999 mls/hr 07/17/20 12:49 07/17/20 13:01 Normal Saline IV 07/17/20 13:49 999 mls/hr STAT ONE Administration Ceftriaxone Sodium/Dextrose 1 50 mls @ 100 mls/hr 07/17/20 13:02 07/17/20 13:05 gm/ Premix IV 07/17/20 13:31 100 mls/hr ONETIME ONE Administration Lactated Ringer's 1,000 mls @ 999 mls/hr 07/17/20 13:30 07/17/20 15:24 Ringers, Lactated IV 999 mls/hr .BOLUS [facility] Administration Iopamidol 100 ml 07/17/20 11:48 07/17/20 12:30 Isovue Multipack-370 (76%) IVPUSH 07/17/20 11:49 100 ml ONETIME STA Administration Ondansetron HCl 4 mg 07/17/20 10:41 07/17/20 10:45 Zofran IVPUSH 07/17/20 10:42 4 mg ONETIME ONE Administration Sodium Chloride 10 ml 07/17/20 10:41 07/17/20 10:46 Saline Flush FLUSH 10 ml ASDIRECTED PRN Administration Keep Vein Open Sodium Chloride 2.5 ml 07/17/20 10:41 07/17/20 10:46 Saline Flush FLUSH 2.5 ml ASDIRECTED PRN Administration Keep Vein Open Departure - Departure Time of Disposition: 16:25 Disposition: Admitted As Inpatient 67 Clinical Impression: Acute pancreatitis Qualifiers: Pancreatitis type: alcohol induced Acute pancreatitis complication: unspecified Qualified Code(s): K85.20 - Alcohol induced acute pancreatitis without necrosis or infection UTI (urinary tract infection) Qualifiers: Urinary tract infection type: acute cystitis Hematuria presence: without hematuria Qualified Code(s): N30.00 - Acute cystitis without hematuria - Discharge Information Sepsis Event Note (ED) - Evaluation Sepsis Screening Result: Possible Sepsis Risk - Focused Exam Vital Signs: Vital Signs Temp Pulse Resp BP Pulse Ox 07/17/20 13:02 110 H 16 127/90 100 07/17/20 10:23 96.2 F L 126 H 18 137/99 H 95 - My Orders Last 24 Hours: My Active Orders 07/17/20 10:50 CULTURE URINE [RM] Stat 07/17/20 13:07 Admission Status [Patient Status] [ADT] Stat - Assessment/Plan Last 24 Hours: My Active Orders 07/17/20 10:50 CULTURE URINE [RM] Stat 07/17/20 13:07 Admission Status [Patient Status] [ADT] Stat
[2020-07-17 11:31] LABS: BLOOD UREA NITROGEN,BUN 15 mg/dL (7.0-18.0); CARBON DIOXIDE,CO2 19.1 mmol/L (21.0-32.0); CHLORIDE,CL 104 mmol/L (98-107); GLUCOSE RANDOM 114 mg/dL (74-106); POTASSIUM,K 4.1 mmol/L (3.5-5.1); SODIUM,NA 136 mmol/L (136-145)
[2020-07-17 11:32] LABS: LIPASE 1613 U/L (73-393)
[2020-07-17] MEDS ORDERED: Iopamidol 755 MG/ML 500 ML Multipack Bottle IVPUSH STA (11:48)
--- NOTE | 2020-07-17 12:59 | CT ---
INDICATION: Epigastric pain, history of pancreatitis, elevated lipase TECHNIQUE: CT abdomen and pelvis acquired with 100 cc Isovue 370 IV contrast. COMPARISON: April 16, 2020 FINDINGS: Lower chest: Unremarkable. Liver: Hepatic steatosis. Spleen: Unremarkable. Pancreas: 3.0 x 2.8 x 3.7 cm ill-defined hypodense region in the pancreatic neck. A portion of this lesion contains cystic and calcific areas. No pancreatic ductal dilatation. No definite pseudocyst. No peripancreatic fat stranding. Gallbladder and bile ducts: Unremarkable. No gallstones. Adrenal glands: Unremarkable. Kidneys: Unremarkable. GI tract: Moderate amount of feces in the colon. Appendix is not seen. Vascular structures: Multiple varices in the upper abdomen. Lymph nodes: Peripancreatic lymph nodes measure up to 2.0 cm in size. Miscellaneous: Unremarkable. No free air or significant free fluid. Pelvic Organs: Unremarkable. Bones: Unremarkable for age. IMPRESSION: Heterogeneous lesion in the pancreatic neck with surrounding peripancreatic adenopathy and upper abdominal varices. In light of the elevated lipase, findings likely represent acute on chronic pancreatitis. Findings discussed with Dr. oJhnson at 12:57 p.m. on July 17, 2020. Please note that all CT scans at this facility use dose modulation, iterative reconstruction, and/or weight-based dosing when appropriate to reduce radiation dose to as low as reasonably achievable. Dictated by Meg Tirado MD @ Jul 17 2020 12:42PM Signed by Dr. Meg Tirado @ Jul 17 2020 12:58PM
[2020-07-17] MEDS ORDERED: cefTRIAXone 1 GM in Premix Bag 1 BAG IV ONE (13:02)
--- NOTE | 2020-07-17 13:28 | PCM.HP.2 ---
H&P History of Present Illness - General Date of Service: 07/17/20 Admit Problem/Dx: Admission Diagnosis/Problem Admission Diagnosis/Problem Pancreatitis Source of Information: Patient History Limitations: Reports: No Limitations - History of Present Illness Initial Comments - Free Text/Narative: This 35-year-old female with past medical history of chronic pancreatitis seco ndary to alcohol abuse, pancreatic pseudocyst, hx SMV and portal vein thrombosis treated with Xarelto, depression/anxiety presented to the ER with concerns of continued nausea and epigastric pain. She was previously seen in the ER on 07/15/2020 and was discharged home after pain medication and Zofran. She reports she has continued to worsen at home unable to keep any fluids down due to severity of nausea and epigastric pain is unbearable. Her PCP did call in Percocet but reports she has not been able to take this due to nausea. She denies any chest pain or shortness of breath. Denies any bloody emesis or black or bloody stools. She reports she has not had a stool in a few days. She de nies any headache fevers chills or sinus congestion. Reports that she is been working from home and not going home health very often. Reports that she did drink alcohol last week very vague on amount but reports that she has not been completely sober. Denies any tobacco use no recreational drug use. In the ER mild leukocytosis noted at 14,000 hemoglobin 8.2, which is lower for baseline around 11. Platelets 409,000, bicarb 19.1 BUN 15 creatinine 0.8 glucose 114 lipase 1613 AST ALT within the limits hCG urine negative as of 07/15/2020 UA showed small blood small leukocyte esterase negative nitrate 2+bacteria. UC pending she was treated with 1 L normal saline bolus Dilaudid [address] of the abdomen was performed which showed hepatic steatosis 3.0 x 2.8 x 3.7 cm ill-defined hypodense region in the pancreatic neck. Portion of this lesion appears to contain cystic and calcified areas. No pancreatic ductal dilation no definite pseudocyst no peripancreatic fat stranding gall bladder is unremarkable no gallstones no also noted moderate amount of stool in the colon. She will be admitted inpatient for acute on chronic pancreatitis upper abdomen, back Pain Score (Numeric/FACES): 9 - Related Data Allergies/Adverse Reactions: Allergies Allergy/AdvReac Type Severity Reaction Status Date / Time No Known Allergies Allergy Verified 07/17/20 10:25 Home Medications: Home Meds Acetaminophen/oxyCODONE [Percocet 325-5 MG] 1 tab PO BID #10 tablet 09/22/19 [Rx] DULoxetine [Cymbalta] 20 mg PO DAILY 07/15/20 [History] Naproxen [Naprosyn] 500 mg PO Q12HR #30 tab 07/15/20 [Rx] Ondansetron [Zofran ODT] 4 mg PO Q6H PRN #12 tab.dis 07/15/20 [Rx] Past Medical History - Past Health History Medical/Surgical History: Denies Medical/Surgical History HEENT History: Reports: None Cardiovascular History: Reports: Blood Clots/VTE/DVT Other Cardiovascular History: blood clot on the liver Respiratory History: Reports: None Gastrointestinal History: Reports: Pancreatitis Genitourinary History: Reports: None CONSTRUCTION JOB TITLES History: Reports: None Musculoskeletal History: Reports: None Neurological History: Reports: None Psychiatric History: Reports: Addiction, Anxiety, Depression Other Psychiatric History: ETOH Endocrine/Metabolic History: Reports: None Hematologic History: Reports: None Immunologic History: Reports: None Oncologic (Cancer) History: Reports: None Dermatologic History: Reports: None - Infectious Disease History Infectious Disease History: Reports: Chicken Pox - Past Surgical History Head Surgeries/Procedures: Reports: None HEENT Surgical History: Reports: None Cardiovascular Surgical History: Reports: None Respiratory Surgical History: Reports: None GI Surgical History: Reports: EGD Female Surgical History: Reports: None Endocrine Surgical History: Reports: None Neurological Surgical History: Reports: None Musculoskeletal Surgical History: Reports: None Oncologic Surgical History: Reports: None Dermatological Surgical History: Reports: None Social & Family History - Family History Family Medical History: No Pertinent Family History Cardiac: Reports: [place] - Tobacco Use Tobacco Use Status *Q: Never Tobacco User - Caffeine Use Caffeine Use: Reports: Soda Other Caffeine Use: 2 Diet Cokes a day - Recreational Drug Use Recreational Drug Use: No - Living Situation & Occupation Living situation: Reports: Single Occupation: Unemployed H&P Review of Systems - Review of Systems: Review Of Systems: See Below General: Reports: Malaise HEENT: Reports: No Symptoms. Denies: Headaches, Sinus Congestion, Sore Throat Pulmonary: Denies: Shortness of Breath Cardiovascular: Denies: Chest Pain Gastrointestinal: Reports: Abdominal Pain (Epigastric that radiates to the back), Constipation, Decreased Appetite, Nausea. Denies: Vomiting Genitourinary: Reports: No Symptoms. Denies: Dysuria, Frequency, Burning Musculoskeletal: Reports: No Symptoms Skin: Reports: No Symptoms Psychiatric: Reports: No Symptoms Neurological: Reports: No Symptoms Hematologic/Lymphatic: Reports: No Symptoms Immunologic: Reports: No Symptoms Exam - Exam Exam: See Below - Vital Signs Vital Signs: Last Vital Signs Temp 96.2 F L 07/17/20 10:23 Pulse 110 H 07/17/20 13:02 Resp 16 07/17/20 13:02 BP 127/90 07/17/20 13:02 Pulse Ox 100 07/17/20 13:02 Weight: 70.307 kg - Exam General: Alert, Oriented, Cooperative HEENT: Conjunctiva Clear, Mucosa Moist & [place], Posterior Pharynx Clear Lungs: Clear to Auscultation, Normal Respiratory Effort Cardiovascular: Regular Rate, Regular Rhythm, Normal S1, Normal S2 GI/Abdominal Exam: Normal Bowel Sounds, Soft, Tender (Tenderness noted to epigastric region) Extremities: Normal Inspection, Normal Range of Motion, Non-Tender, No Pedal Edema Neurological: Cranial Nerves Intact Neuro Extensive - Mental Status: Alert, Oriented x3, Normal Mood/Affect Psychiatric: Alert, Normal Affect, Normal Mood - Patient Data Lab Results Last 24 hrs: Laboratory Results - last 24 hr 07/17/20 07/17/20 07/17/20 Range/Units 10:45 10:45 10:50 WBC 14.30 H (4.0-11.0) K/uL RBC 3.26 L (4.30-5.90) M/uL Hgb 8.2 L (12.0-16.0) g/dL Hct 27.4 L (36.0-46.0) % MCV 84.0 (80.0-98.0) fL MCH 25.2 L (27.0-32.0) pg MCHC 29.9 L (31.0-37.0) g/dL RDW Std Deviation 44.9 (28.0-62.0) fl RDW Coeff of [place] 15 (11.0-15.0) % Plt Count 409 H (150-400) K/uL MPV 8.50 (7.40-12.00) fL Neut % (Auto) 77.5 (48.0-80.0) % Lymph % (Auto) 14.9 L (16.0-40.0) % [place] % (Auto) 6.9 (0.0-15.0) % Eos % (Auto) 0.4 (0.0-7.0) % Baso % (Auto) 0.3 (0.0-1.5) % Neut # (Auto) 11.1 H (1.4-5.7) K/uL Lymph # (Auto) 2.1 (0.6-2.4) K/uL [place] # (Auto) 1.0 H (0.0-0.8) K/uL Eos # (Auto) 0.1 (0.0-0.7) K/uL Baso # (Auto) 0.1 (0.0-0.1) K/uL Nucleated RBC % 0.0 /100WBC Nucleated RBCs # 0 K/uL Sodium 136 (136-145) mmol/L Potassium 4.1 (3.5-5.1) mmol/L Chloride 104 (98-107) mmol/L Carbon Dioxide 19.1 L (21.0-32.0) mmol/L BUN 15 (7.0-18.0) mg/dL Creatinine 0.8 (0.6-1.0) mg/dL Est Cr Clr Drug Dosing 85.56 mL/min Estimated GFR (MDRD) > 60.0 ml/min Glucose 114 H (74-106) mg/dL Calcium 9.1 (8.5-10.1) mg/dL Total Bilirubin 0.3 (0.2-1.0) mg/dL AST 22 (15-37) IU/L ALT 24 (14-63) IU/L Alkaline Phosphatase 100 (46-116) U/L Total Protein 7.8 (6.4-8.2) g/dL Albumin 3.9 (3.4-5.0) g/dL Globulin 3.9 (2.6-4.0) g/dL Albumin/Globulin Ratio 1.0 (0.9-1.6) Lipase 1613 H (73-393) U/L Urine Color YELLOW Urine Appearance CLEAR Urine pH 6.0 (5.0-8.0) Ur Specific [place] 1.025 (1.001-1.035) Urine Protein NEGATIVE (NEGATIVE) mg/dL Urine Glucose (UA) NEGATIVE (NEGATIVE) mg/dL Urine Ketones NEGATIVE (NEGATIVE) mg/dL Urine Occult Blood SMALL H (NEGATIVE) Urine Nitrite NEGATIVE (NEGATIVE) Urine Bilirubin NEGATIVE (NEGATIVE) Urine Urobilinogen 0.2 (<2.0) EU/dL Ur Leukocyte Esterase SMALL H (NEGATIVE) Urine RBC 2-4 (0-2/HPF) Urine WBC 0-2 (0-5/HPF) Ur Epithelial Cells MODERATE (NONE-FEW) Urine Bacteria 2+ H (NEGATIVE) Urine Mucus LIGHT (NONE-MOD) Result Diagrams: 07/17/20 10:45 07/17/20 10:45 Sepsis Event Note - Evaluation Sepsis Screening Result: Possible Sepsis Risk - Focused Exam Vital Signs: Vital Signs Temp Pulse Resp BP Pulse Ox 07/17/20 13:02 110 H 16 127/90 100 07/17/20 10:23 96.2 F L 126 H 18 137/99 H 95 - Problem List (1) Acute alcoholic pancreatitis SNOMED Code(s): 419285720 ICD Code: K85.20 - ALCOHOL INDUCED ACUTE PANCREATITIS WITHOUT NECROSIS OR INFCT Status: Acute Current Visit: No Qualifiers: Acute pancreatitis complication: no infection or necrosis Qualified Code(s): K85.20 - Alcohol induced acute pancreatitis without necrosis or infection (2) Anemia SNOMED Code(s): 435749605 ICD Code: D64.9 - ANEMIA, UNSPECIFIED Status: Acute Current Visit: Yes (3) UTI (urinary tract infection) SNOMED Code(s): 68445317 ICD Code: N39.0 - URINARY TRACT INFECTION, SITE NOT SPECIFIED Status: Acute Current Visit: No Qualifiers: Urinary tract infection type: acute cystitis Hematuria presence: without hematuria Qualified Code(s): N30.00 - Acute cystitis without hematuria (4) Alcohol abuse SNOMED Code(s): 15017332 ICD Code: F10.10 - ALCOHOL ABUSE, UNCOMPLICATED Status: Chronic Current Visit: No (5) Pancreatic cyst SNOMED Code(s): 35950627 ICD Code: K86.2 - CYST OF PANCREAS Status: Chronic Current Visit: No (6) GERD (gastroesophageal reflux disease) SNOMED Code(s): 696095191 ICD Code: K21.9 - GASTRO-ESOPHAGEAL REFLUX DISEASE WITHOUT ESOPHAGITIS Status: Chronic Current Visit: No Qualifiers: Esophagitis presence: esophagitis presence not specified Qualified Code(s): K21.9 - Gastro-esophageal reflux disease without esophagitis (7) Superior mesenteric vein thrombosis SNOMED Code(s): 324930664 ICD Code: I81 - PORTAL VEIN THROMBOSIS Status: Chronic Current Visit: No (8) Chronic pancreatitis SNOMED Code(s): 247063656 ICD Code: K86.1 - OTHER CHRONIC PANCREATITIS Status: Chronic Current Visit: No Qualifiers: Pancreatitis type: alcohol induced Qualified Code(s): K86.0 - Alcohol- induced chronic pancreatitis Problem List Initiated/Reviewed/Updated: Yes Orders Last 24hrs: Active Orders 24 hr Category Date Time Status Admission Status [Patient Status] [ADT] Stat ADT 07/17/20 13:07 Active CORONAVIRUS COVID-19 DENISSE [MOLEC] Stat Lab 07/17/20 13:15 Ordered CULTURE URINE [RM] Stat Lab 07/17/20 10:50 Received Lactated Ringers [Ringers, Lactated] 1,000 ml Med 07/17/20 13:30 Ordered IV .BOLUS Sodium Chloride 0.9% [Normal Saline] 1,000 ml Med 07/17/20 12:49 Active IV STAT Sodium Chloride 0.9% [Saline Flush] Med 07/17/20 10:41 Active 10 ml FLUSH ASDIRECTED PRN Sodium Chloride 0.9% [Saline Flush] Med 07/17/20 10:41 Active 2.5 ml FLUSH ASDIRECTED PRN cefTRIAXone [Rocephin in Dextrose,Iso-Osm 1 GM/50 ML] 1 Med 07/17/20 13:02 Active gm Premix Bag 1 bag IV ONETIME Saline Lock Insert [OM.PC] Stat Oth 07/17/20 10:41 Ordered Medication Orders Sodium Chloride (Normal Saline) 1,000 mls @ 999 mls/hr IV STAT ONE Stop: 07/17/20 13:49 Last Admin: 07/17/20 13:01 Dose: 999 mls/hr Documented by: SERGIO Ceftriaxone Sodium/Dextrose 1 (gm/ Premix) 50 mls @ 100 mls/hr IV ONETIME ONE Stop: 07/17/20 13:31 Last Admin: 07/17/20 13:05 Dose: 100 mls/hr Documented by: SERGIO Lactated Ringer's (Ringers, Lactated) 1,000 mls @ 999 mls/hr IV .BOLUS CARLITOS Sodium Chloride (Saline Flush) 10 ml FLUSH ASDIRECTED PRN PRN Reason: Keep Vein Open Last Admin: 07/17/20 10:46 Dose: 10 ml Documented by: JOCE Sodium Chloride (Saline Flush) 2.5 ml FLUSH ASDIRECTED PRN PRN Reason: Keep Vein Open Last Admin: 07/17/20 10:46 Dose: 2.5 ml Documented by: JOCE Assessment/Plan Comment:: This 35-year-old female admitted with acute on chronic alcoholic pancreatitis 1. Acute on chronic alcoholic pancreatitis -N.p.o. for now -We will give 2 L bolus LR now and then continue LR at 200 -Repeat lipase in a.m. -Dilaudid 0.5 mg IV every 2 hours as needed pain -Zofran as needed nausea - Check lactic acid 2. Anemia -Upper abdominal varices noted on CT patient denies any bleeding in stool or emesis. -Protonix twice daily IV -Monitor hemoglobin -Asymptomatic 3. UTI - mild UTI, asymptomatic - UC pending - With tachycardia, leukocytosis and UTI meets SIRS criteria. will obtain lactic acid. 4. Alcohol abuse -Denies any withdrawal symptoms last drink was last week. -Thiamine and folic acid -CIWAA with Ativan protocol VTE prophylaxis: SCDs due to possible acute bleeding GI prophylaxis: Protonix IV twice daily CODE STATUS: Full code Dispo: 2 to 3 days pending improvement
[2020-07-17] MEDS ORDERED: Sodium Chloride 0.9% 10 ML SDV IV PRN (13:54)
[2020-07-17] MEDS ORDERED: Pantoprazole 40 MG Vial IV SCH (13:55)
[2020-07-17] MEDS ORDERED: Labetalol 100 MG/20 ML MDV IVPUSH PRN (13:57)
[2020-07-17] MEDS ORDERED: LORazepam 2 MG/ML SDV IVPUSH PRN (13:58)
[2020-07-17] MEDS: Lactated Ringers 1,000 ML IV SCH ×5 (14:12→21:53)
[2020-07-17] MEDS ORDERED: Ondansetron 4 MG/2 ML SDV IVPUSH PRN (14:15)
[2020-07-17] MEDS ORDERED: Bisacodyl 10 MG Supp RECTAL PRN (14:15)
[2020-07-17] MEDS ORDERED: Docusate Sodium 100 MG Cap PO PRN (14:15)
[2020-07-17] MEDS ORDERED: HYDROmorphone 2 MG/ML Syringe IVPUSH PRN (14:15)
[2020-07-17] MEDS: Folic Acid 50 MG/10 ML MDV SUBCUT SCH (15:17)
[2020-07-17] MEDS: Pantoprazole 40 MG in Sodium Chloride 0.9% 10 ML IV SCH (15:17)
[2020-07-17] MEDS: Thiamine 100 MG in Sodium Chloride 0.9% 100 ML IV SCH (15:18)
[2020-07-17] MEDS: HYDROmorphone 1 MG/ML Syringe IVPUSH PRN ×4 (17:36→23:54)
[2020-07-18] MEDS: Lactated Ringers 1,000 ML IV SCH ×6 (00:47→18:30)
[2020-07-18] MEDS: HYDROmorphone 1 MG/ML Syringe IVPUSH PRN ×10 (01:55→23:04)
[2020-07-18] MEDS: Pantoprazole 40 MG in Sodium Chloride 0.9% 10 ML IV SCH ×2 (01:58→14:30)
[2020-07-18 06:18] LABS: BLOOD UREA NITROGEN,BUN 8 mg/dL (7.0-18.0); CARBON DIOXIDE,CO2 23.7 mmol/L (21.0-32.0); CHLORIDE,CL 106 mmol/L (98-107); GLUCOSE RANDOM 95 mg/dL (74-106); POTASSIUM,K 3.6 mmol/L (3.5-5.1); SODIUM,NA 139 mmol/L (136-145)
--- NOTE | 2020-07-18 08:04 | PCM.PN ---
- General Info Date of Service: 07/18/20 Admission Dx/Problem (Free Text): Admission Diagnosis/Problem Admission Diagnosis/Problem Pancreatitis Subjective Update: Reports she is having epigastric pain today. Appears very uncomfortable. Denies any shortness of breath. Reports she is feeling constipated and has not had a bowel movement in many days. Reports nausea has improved significantly. She was counseled on low hemoglobin and again asked if she has had any black or bloody bowel movements and no coffee-ground emesis. She reports she has not had any other tests including a few weeks ago. She does report that she normally is quite regular in bowel movements but recently has been more constipated. Functional Status: Reports: Ambulating, Urinating. Denies: Pain Controlled - Review of Systems General: Reports: No Symptoms. Denies: Fever, Weakness, Fatigue HEENT: Reports: Other (Mild dizziness when ambulating) Pulmonary: Reports: No Symptoms. Denies: Shortness of Breath Cardiovascular: Reports: No Symptoms. Denies: Chest Pain Gastrointestinal: Reports: Abdominal Pain (Epigastric that radiates to the back), Constipation. Denies: Nausea, Vomiting Genitourinary: Reports: No Symptoms. Denies: Dysuria, Frequency, Burning Musculoskeletal: Reports: No Symptoms Skin: Reports: No Symptoms Neurological: Reports: No Symptoms Psychiatric: Reports: No Symptoms - Patient Data Vitals - Most Recent: Last Vital Signs Temp 96.6 F L 07/18/20 07:00 Pulse 89 07/18/20 07:00 Resp 18 07/18/20 07:00 BP 114/72 07/18/20 07:00 Pulse Ox 96 07/18/20 07:00 Weight - Most Recent: 75.07 kg I&O - Last 24 Hours: Intake & Output 07/17/20 07/18/20 07/18/20 22:59 06:59 14:59 Intake Total 0 40 Output Total 400 2650 Balance -400 -2610 Lab Results Last 24 Hours: Laboratory Results - last 24 hr 07/17/20 07/17/20 07/17/20 Range/Units 10:45 10:45 10:50 WBC 14.30 H (4.0-11.0) K/uL RBC 3.26 L (4.30-5.90) M/uL Hgb 8.2 L (12.0-16.0) g/dL Hct 27.4 L (36.0-46.0) % MCV 84.0 (80.0-98.0) fL MCH 25.2 L (27.0-32.0) pg MCHC 29.9 L (31.0-37.0) g/dL RDW Std Deviation 44.9 (28.0-62.0) fl RDW Coeff of [place] 15 (11.0-15.0) % Plt Count 409 H (150-400) K/uL MPV 8.50 (7.40-12.00) fL Neut % (Auto) 77.5 (48.0-80.0) % Lymph % (Auto) 14.9 L (16.0-40.0) % [place] % (Auto) 6.9 (0.0-15.0) % Eos % (Auto) 0.4 (0.0-7.0) % Baso % (Auto) 0.3 (0.0-1.5) % Neut # (Auto) 11.1 H (1.4-5.7) K/uL Lymph # (Auto) 2.1 (0.6-2.4) K/uL [place] # (Auto) 1.0 H (0.0-0.8) K/uL Eos # (Auto) 0.1 (0.0-0.7) K/uL Baso # (Auto) 0.1 (0.0-0.1) K/uL Nucleated RBC % 0.0 /100WBC Nucleated RBCs # 0 K/uL Lactate (0.20-2.00) mmol/L Sodium 136 (136-145) mmol/L Potassium 4.1 (3.5-5.1) mmol/L Chloride 104 (98-107) mmol/L Carbon Dioxide 19.1 L (21.0-32.0) mmol/L BUN 15 (7.0-18.0) mg/dL Creatinine 0.8 (0.6-1.0) mg/dL Est Cr Clr Drug Dosing 85.56 mL/min Estimated GFR (MDRD) > 60.0 ml/min Glucose 114 H (74-106) mg/dL Calcium 9.1 (8.5-10.1) mg/dL Phosphorus (2.6-4.7) mg/dL Magnesium (1.8-2.4) mg/dL Total Bilirubin 0.3 (0.2-1.0) mg/dL AST 22 (15-37) IU/L ALT 24 (14-63) IU/L Alkaline Phosphatase 100 (46-116) U/L Total Protein 7.8 (6.4-8.2) g/dL Albumin 3.9 (3.4-5.0) g/dL Globulin 3.9 (2.6-4.0) g/dL Albumin/Globulin Ratio 1.0 (0.9-1.6) Lipase 1613 H (73-393) U/L Urine Color YELLOW Urine Appearance CLEAR Urine pH 6.0 (5.0-8.0) Ur Specific [place] 1.025 (1.001-1.035) Urine Protein NEGATIVE (NEGATIVE) mg/dL Urine Glucose (UA) NEGATIVE (NEGATIVE) mg/dL Urine Ketones NEGATIVE (NEGATIVE) mg/dL Urine Occult Blood SMALL H (NEGATIVE) Urine Nitrite NEGATIVE (NEGATIVE) Urine Bilirubin NEGATIVE (NEGATIVE) Urine Urobilinogen 0.2 (<2.0) EU/dL Ur Leukocyte Esterase SMALL H (NEGATIVE) Urine RBC 2-4 (0-2/HPF) Urine WBC 0-2 (0-5/HPF) Ur Epithelial Cells MODERATE (NONE-FEW) Urine Bacteria 2+ H (NEGATIVE) Urine Mucus LIGHT (NONE-MOD) SARS-CoV-2 RNA (DENISSE) (NEGATIVE) 07/17/20 07/17/20 07/18/20 Range/Units 13:03 14:08 05:15 WBC 9.27 (4.0-11.0) K/uL RBC 2.19 L (4.30-5.90) M/uL Hgb 5.5 L (12.0-16.0) g/dL Hct 18.7 L (36.0-46.0) % MCV 85.4 (80.0-98.0) fL MCH 25.1 L (27.0-32.0) pg MCHC 29.4 L (31.0-37.0) g/dL RDW Std Deviation 45.7 (28.0-62.0) fl RDW Coeff of [place] 15 (11.0-15.0) % Plt Count 236 (150-400) K/uL MPV 8.20 (7.40-12.00) fL Neut % (Auto) 52.9 (48.0-80.0) % Lymph % (Auto) 37.0 (16.0-40.0) % [place] % (Auto) 8.2 (0.0-15.0) % Eos % (Auto) 1.7 (0.0-7.0) % Baso % (Auto) 0.2 (0.0-1.5) % Neut # (Auto) 4.9 (1.4-5.7) K/uL Lymph # (Auto) 3.4 H (0.6-2.4) K/uL [place] # (Auto) 0.8 (0.0-0.8) K/uL Eos # (Auto) 0.2 (0.0-0.7) K/uL Baso # (Auto) 0.0 (0.0-0.1) K/uL Nucleated RBC % 0.0 /100WBC Nucleated RBCs # 0 K/uL Lactate 0.7 (0.20-2.00) mmol/L Sodium (136-145) mmol/L Potassium (3.5-5.1) mmol/L Chloride (98-107) mmol/L Carbon Dioxide (21.0-32.0) mmol/L BUN (7.0-18.0) mg/dL Creatinine (0.6-1.0) mg/dL Est Cr Clr Drug Dosing mL/min Estimated GFR (MDRD) ml/min Glucose (74-106) mg/dL Calcium (8.5-10.1) mg/dL Phosphorus (2.6-4.7) mg/dL Magnesium (1.8-2.4) mg/dL Total Bilirubin (0.2-1.0) mg/dL AST (15-37) IU/L ALT (14-63) IU/L Alkaline Phosphatase (46-116) U/L Total Protein (6.4-8.2) g/dL Albumin (3.4-5.0) g/dL Globulin (2.6-4.0) g/dL Albumin/Globulin Ratio (0.9-1.6) Lipase (73-393) U/L Urine Color Urine Appearance Urine pH (5.0-8.0) Ur Specific [place] (1.001-1.035) Urine Protein (NEGATIVE) mg/dL Urine Glucose (UA) (NEGATIVE) mg/dL Urine Ketones (NEGATIVE) mg/dL Urine Occult Blood (NEGATIVE) Urine Nitrite (NEGATIVE) Urine Bilirubin (NEGATIVE) Urine Urobilinogen (<2.0) EU/dL Ur Leukocyte Esterase (NEGATIVE) Urine RBC (0-2/HPF) Urine WBC (0-5/HPF) Ur Epithelial Cells (NONE-FEW) Urine Bacteria (NEGATIVE) Urine Mucus (NONE-MOD) SARS-CoV-2 RNA (DENISES) NEGATIVE (NEGATIVE) 07/18/20 Range/Units 05:15 WBC (4.0-11.0) K/uL RBC (4.30-5.90) M/uL Hgb (12.0-16.0) g/dL Hct (36.0-46.0) % MCV (80.0-98.0) fL MCH (27.0-32.0) pg MCHC (31.0-37.0) g/dL RDW Std Deviation (28.0-62.0) fl RDW Coeff of [place] (11.0-15.0) % Plt Count (150-400) K/uL MPV (7.40-12.00) fL Neut % (Auto) (48.0-80.0) % Lymph % (Auto) (16.0-40.0) % [place] % (Auto) (0.0-15.0) % Eos % (Auto) (0.0-7.0) % Baso % (Auto) (0.0-1.5) % Neut # (Auto) (1.4-5.7) K/uL Lymph # (Auto) (0.6-2.4) K/uL [place] # (Auto) (0.0-0.8) K/uL Eos # (Auto) (0.0-0.7) K/uL Baso # (Auto) (0.0-0.1) K/uL Nucleated RBC % /100WBC Nucleated RBCs # K/uL Lactate (0.20-2.00) mmol/L Sodium 139 (136-145) mmol/L Potassium 3.6 (3.5-5.1) mmol/L Chloride 106 (98-107) mmol/L Carbon Dioxide 23.7 (21.0-32.0) mmol/L BUN 8 (7.0-18.0) mg/dL Creatinine 0.6 (0.6-1.0) mg/dL Est Cr Clr Drug Dosing 114.08 mL/min Estimated GFR (MDRD) > 60.0 ml/min Glucose 95 (74-106) mg/dL Calcium 7.8 L (8.5-10.1) mg/dL Phosphorus 2.5 L (2.6-4.7) mg/dL Magnesium 1.5 L (1.8-2.4) mg/dL Total Bilirubin 0.2 (0.2-1.0) mg/dL AST 13 L (15-37) IU/L ALT 17 (14-63) IU/L Alkaline Phosphatase 65 (46-116) U/L Total Protein 5.5 L (6.4-8.2) g/dL Albumin 2.7 L (3.4-5.0) g/dL Globulin 2.8 (2.6-4.0) g/dL Albumin/Globulin Ratio 1.0 (0.9-1.6) Lipase (73-393) U/L Urine Color Urine Appearance Urine pH (5.0-8.0) Ur Specific [place] (1.001-1.035) Urine Protein (NEGATIVE) mg/dL Urine Glucose (UA) (NEGATIVE) mg/dL Urine Ketones (NEGATIVE) mg/dL Urine Occult Blood (NEGATIVE) Urine Nitrite (NEGATIVE) Urine Bilirubin (NEGATIVE) Urine Urobilinogen (<2.0) EU/dL Ur Leukocyte Esterase (NEGATIVE) Urine RBC (0-2/HPF) Urine WBC (0-5/HPF) Ur Epithelial Cells (NONE-FEW) Urine Bacteria (NEGATIVE) Urine Mucus (NONE-MOD) SARS-CoV-2 RNA (DENISSE) (NEGATIVE) Med Orders - Current: Current Medications Bisacodyl (Dulcolax) 10 mg RECTAL DAILY PRN PRN Reason: Constipation Docusate Sodium (Colace) 100 mg PO BID PRN PRN Reason: Constipation Folic Acid (Folic Acid) 1 mg SUBCUT DAILY [facility] Last Admin: 07/17/20 15:17 Dose: 1 mg Documented by: Hydromorphone HCl (Dilaudid) 0.5 mg IVPUSH Q2H PRN PRN Reason: Pain (severe 7-10) Last Admin: 07/18/20 06:25 Dose: 0.5 mg Documented by: Lactated Ringer's (Ringers, Lactated) 1,000 mls @ 200 mls/hr IV Q5H [facility] Last Admin: 07/18/20 07:30 Dose: 200 mls/hr Documented by: Thiamine HCl 100 mg/ Sodium (Chloride) 101 mls @ 202 mls/hr IV DAILY [facility] Last Admin: 07/17/20 15:18 Dose: 202 mls/hr Documented by: Pantoprazole Sodium 40 mg/ (Sodium Chloride) 10 mls @ 300 mls/hr IV Q12H [facility] Last Admin: 07/18/20 01:58 Dose: 300 mls/hr Documented by: Labetalol HCl (Normodyne) 10 mg IVPUSH Q4H PRN PRN Reason: SBP>180 Lorazepam (Ativan) 0 mg IVPUSH Q4H PRN; Protocol PRN Reason: CIWAA Ondansetron HCl (Zofran) 4 mg IVPUSH Q4H PRN PRN Reason: Nausea Sodium Chloride (Saline Flush) 2.5 ml FLUSH ASDIRECTED PRN PRN Reason: Keep Vein Open Sodium Chloride (Normal Saline) 10 ml IV ASDIRECTED PRN PRN Reason: IV Use Discontinued Medications Hydromorphone HCl (Dilaudid) 1 mg IVPUSH ONETIME ONE Stop: 07/17/20 10:42 Last Admin: 07/17/20 10:45 Dose: 1 mg Documented by: Hydromorphone HCl (Dilaudid) 1 mg IVPUSH ONETIME ONE Stop: 07/17/20 13:13 Last Admin: 07/17/20 13:25 Dose: 1 mg Documented by: Hydromorphone HCl (Dilaudid) 0.5 mg IVPUSH Q2H PRN PRN Reason: Pain (severe 7-10) Last Admin: 07/17/20 15:31 Dose: 0.5 mg Documented by: Sodium Chloride (Normal Saline) 1,000 mls @ 999 mls/hr IV STAT ONE Stop: 07/17/20 11:41 Last Admin: 07/17/20 10:45 Dose: 999 mls/hr Documented by: Sodium Chloride (Normal Saline) 1,000 mls @ 999 mls/hr IV STAT ONE Stop: 07/17/20 13:49 Last Admin: 07/17/20 13:01 Dose: 999 mls/hr Documented by: Ceftriaxone Sodium/Dextrose 1 (gm/ Premix) 50 mls @ 100 mls/hr IV ONETIME ONE Stop: 07/17/20 13:31 Last Admin: 07/17/20 13:05 Dose: 100 mls/hr Documented by: Lactated Ringer's (Ringers, Lactated) 1,000 mls @ 999 mls/hr IV .BOLUS CARLITOS Last Admin: 07/17/20 15:24 Dose: 999 mls/hr Documented by: Iopamidol (Isovue Multipack-370 (76%)) 100 ml IVPUSH ONETIME STA Stop: 07/17/20 11:49 Last Admin: 07/17/20 12:30 Dose: 100 ml Documented by: Ondansetron HCl (Zofran) 4 mg IVPUSH ONETIME ONE Stop: 07/17/20 10:42 Last Admin: 07/17/20 10:45 Dose: 4 mg Documented by: Sodium Chloride (Saline Flush) 10 ml FLUSH ASDIRECTED PRN PRN Reason: Keep Vein Open Last Admin: 07/17/20 10:46 Dose: 10 ml Documented by: Sodium Chloride (Saline Flush) 2.5 ml FLUSH ASDIRECTED PRN PRN Reason: Keep Vein Open Last Admin: 07/17/20 10:46 Dose: 2.5 ml Documented by: - Exam Quality Assessment: DVT Prophylaxis (SCDs only). No: Supplemental Oxygen General: Alert, Oriented, Cooperative, Mild Distress (Appears to be in acute pain. Awaiting pain medications from nurse) Neck: Supple Lungs: Clear to Auscultation, Normal Respiratory Effort Cardiovascular: Regular Rate, Regular Rhythm GI/Abdominal Exam: Normal Bowel Sounds, Soft, Tender (Epigastric) Back Exam: Normal Inspection, Full Range of Motion Extremities: Normal Inspection, Normal Range of Motion, Non-Tender, No Pedal Edema Wound/Incisions: Healing Well Neurological: No New Focal Deficit Psy/Mental Status: Alert, Normal Affect, Normal Mood Sepsis Event Note - Evaluation Sepsis Screening Result: Sepsis Risk - Focused Exam Vital Signs: Vital Signs Temp Pulse Resp BP Pulse Ox 07/18/20 07:00 96.6 F L 89 18 114/72 96 07/18/20 04:00 98.2 F 96 16 129/77 97 07/18/20 00:00 98.6 F 98 15 128/85 97 - Problem List & Annotations (1) Acute alcoholic pancreatitis SNOMED Code(s): 986333936 Code(s): K85.20 - ALCOHOL INDUCED ACUTE PANCREATITIS WITHOUT NECROSIS OR INFCT Status: Acute Current Visit: No Qualifiers: Acute pancreatitis complication: no infection or necrosis Qualified Code(s): K85.20 - Alcohol induced acute pancreatitis without necrosis or infection (2) Anemia SNOMED Code(s): 813171659 Code(s): D64.9 - ANEMIA, UNSPECIFIED Status: Acute Current Visit: Yes (3) UTI (urinary tract infection) SNOMED Code(s): 16495119 Code(s): N39.0 - URINARY TRACT INFECTION, SITE NOT SPECIFIED Status: Acute Current Visit: Yes Qualifiers: Urinary tract infection type: acute cystitis Hematuria presence: without hematuria Qualified Code(s): N30.00 - Acute cystitis without hematuria (4) Alcohol abuse SNOMED Code(s): 26882509 Code(s): F10.10 - ALCOHOL ABUSE, UNCOMPLICATED Status: Chronic Current Visit: No (5) Pancreatic cyst SNOMED Code(s): 85854986 Code(s): K86.2 - CYST OF PANCREAS Status: Chronic Current Visit: No (6) GERD (gastroesophageal reflux disease) SNOMED Code(s): 527762264 Code(s): K21.9 - GASTRO-ESOPHAGEAL REFLUX DISEASE WITHOUT ESOPHAGITIS Stat us: Chronic Current Visit: No Qualifiers: Esophagitis presence: esophagitis presence not specified Qualified Code(s): K21.9 - Gastro-esophageal reflux disease without esophagitis (7) Superior mesenteric vein thrombosis SNOMED Code(s): 904259924 Code(s): I81 - PORTAL VEIN THROMBOSIS Status: Chronic Current Visit: No (8) Chronic pancreatitis SNOMED Code(s): 609764909 Code(s): K86.1 - OTHER CHRONIC PANCREATITIS Status: Chronic Current Visit: No Qualifiers: Pancreatitis type: alcohol induced Qualified Code(s): K86.0 - Alcohol- induced chronic pancreatitis - Problem List Review Problem List Initiated/Reviewed/Updated: Yes - My Orders Last 24 Hours: My Active Orders 07/17/20 13:54 Antiembolic Devices [RC] PER UNIT ROUTINE Intake and Output [RC] Q12H May Shower [RC] ASDIRECTED Oxygen Therapy [RC] PRN Up ad [place] [RC] ASDIRECTED VTE/DVT Education [RC] PER UNIT ROUTINE Vital Signs [RC] Q4H Sodium Chloride 0.9% [Normal Saline] 10 ml IV ASDIRECTED PRN Sodium Chloride 0.9% [Saline Flush] 2.5 ml FLUSH ASDIRECTED PRN Peripheral IV Insertion Adult [OM.PC] Routine Sequential Compression Device [OM.PC] Per Unit Routine Resuscitation Status Routine 07/17/20 13:57 Labetalol [Normodyne] 10 mg IVPUSH Q4H PRN 07/17/20 13:58 LORazepam [Ativan] See Protocol IVPUSH Q4H PRN 07/17/20 13:59 CIWAA Assessment [RC] Q4H 07/17/20 14:00 Lactated Ringers [Ringers, Lactated] 1,000 ml IV Q5H 07/17/20 14:15 Docusate Sodium [Colace] 100 mg PO BID PRN Ondansetron [Zofran] 4 mg IVPUSH Q4H PRN bisacodyL [Dulcolax] 10 mg RECTAL DAILY PRN 07/17/20 14:30 Folic Acid 1 mg SUBCUT DAILY Pantoprazole [ProTONIX IV] 40 mg Sodium Chloride 0.9% [Normal Saline] 10 ml IV Q12H Thiamine [Vitamin B-1] 100 mg Sodium Chloride 0.9% [Normal Saline] 100 ml IV DAILY 07/17/20 17:30 HYDROmorphone [Dilaudid] 0.5 mg IVPUSH Q2H PRN 07/18/20 07:58 Verify Patient Consent Obtain [RC] ASDIRECTED RED BLOOD CELLS LP [BBK] Routine TYPE AND SCREEN [BBK] Routine Transfuse Red Blood Cells [COMM] Routine 07/18/20 07:59 FERRITIN [CHEM] Routine FOLIC ACID [CHEM] Routine H PYLORI STOOL ANTIGEN [MREF] Routine IRON/TIBC [CHEM] Routine OCCULT BLOOD DIAGNOSTIC [OP] Routine PERIPH BLOOD SMEAR PATHOLOGIST [HEME] Routine RETICULOCYTE COUNT [HEME] Routine TRANSFERRIN [CHEM] Routine VITAMIN B12 [CHEM] Routine 07/19/20 05:11 CBC WITH AUTO DIFF [HEME] AM COMPREHENSIVE METABOLIC PN,CMP [CHEM] AM MAGNESIUM [CHEM] AM PHOSPHORUS [CHEM] AM 07/20/20 05:11 CBC WITH AUTO DIFF [HEME] AM COMPREHENSIVE METABOLIC PN,CMP [CHEM] AM MAGNESIUM [CHEM] AM PHOSPHORUS [CHEM] AM 07/21/20 05:11 CBC WITH AUTO DIFF [HEME] AM COMPREHENSIVE METABOLIC PN,CMP [CHEM] AM MAGNESIUM [CHEM] AM PHOSPHORUS [CHEM] AM 07/22/20 05:11 CBC WITH AUTO DIFF [HEME] AM COMPREHENSIVE METABOLIC PN,CMP [CHEM] AM MAGNESIUM [CHEM] AM PHOSPHORUS [CHEM] AM - Plan Plan:: This 35-year-old female admitted with acute on chronic alcoholic pancreatitis 1. Acute on chronic alcoholic pancreatitis -N.p.o. -Continue LR, decrease to 125 -Repeat lipase today has improved to 220 -Dilaudid 0.5 mg IV every 2 hours as needed pain -Zofran as needed nausea -Lactic acid yesterday was normal. Likely not sepsis more reactive to acute pancreatitis. -Leukocytosis has improved with hydration 2. Anemia -Upper abdominal varices noted on CT patient denies any bleeding in stool or emesis. -Protonix twice daily IV -Hemoglobin dipped to 5.5 this morning. Patient reports mild dizziness. -We will order Hemoccult and H. pylori of stool -We will order 2 units PRBCs to be transfused today. Patient counseled on blood transfusion and has consented to receive this. -We will obtain iron studies as well as peripheral smear. 3. UTI - mild UTI, asymptomatic - UC pending 4. Alcohol abuse -Denies any withdrawal symptoms last drink was last week. -Thiamine and folic acid -CIWAA with Ativan protocol VTE prophylaxis: SCDs only GI prophylaxis: Protonix IV twice daily CODE STATUS: Full code Dispo: 2 to 3 days pending improvement
[2020-07-18] MEDS: Folic Acid 50 MG/10 ML MDV SUBCUT SCH (08:42)
[2020-07-18] MEDS: Thiamine 100 MG in Sodium Chloride 0.9% 100 ML IV SCH (08:50)
[2020-07-18] MEDS ORDERED: Iron Sucrose Complex 200 MG in Sodium Chloride 0.9% 100 ML IV ONE (17:00)
[2020-07-18] MEDS ORDERED: Magnesium Sulfate/Water 4 GM/100 ML BAG IV SCH (18:00)
[2020-07-19] MEDS: Lactated Ringers 1,000 ML IV SCH ×2 (00:22→08:20)
[2020-07-19] MEDS: HYDROmorphone 1 MG/ML Syringe IVPUSH PRN ×5 (01:16→12:03)
[2020-07-19] MEDS: Pantoprazole 40 MG in Sodium Chloride 0.9% 10 ML IV SCH ×2 (03:17→13:54)
[2020-07-19 06:08] LABS: BLOOD UREA NITROGEN,BUN 5 mg/dL (7.0-18.0); CARBON DIOXIDE,CO2 26.6 mmol/L (21.0-32.0); CHLORIDE,CL 105 mmol/L (98-107); GLUCOSE RANDOM 108 mg/dL (74-106); POTASSIUM,K 3.7 mmol/L (3.5-5.1); SODIUM,NA 139 mmol/L (136-145)
--- NOTE | 2020-07-19 08:04 | PCM.PN ---
- General Info Date of Service: 07/19/20 Admission Dx/Problem (Free Text): Admission Diagnosis/Problem Admission Diagnosis/Problem Pancreatitis Subjective Update: Reports she is feeling better today less pain. She reports nausea is completely gone eager to try clear liquids. Denies any chest pain or shortness of breath no bowel movements and no emesis. We did discuss hemoglobin being lower likely secondary to dilution but also that she is having heme positive stools. We counseled heavily on stopping alcohol use as future specialists will want that for her before doing any significant procedures. She verbalized understanding. Functional Status: Reports: Pain Controlled, Ambulating, Urinating - Review of Systems HEENT: Reports: No Symptoms. Denies: Contact Lenses, Headaches, Visual Changes Pulmonary: Reports: No Symptoms. Denies: Shortness of Breath Cardiovascular: Reports: No Symptoms. Denies: Chest Pain Gastrointestinal: Reports: Abdominal Pain (Epigastric but much improved). Denies: Nausea, Vomiting Genitourinary: Reports: No Symptoms. Denies: Dysuria, Frequency, Burning Musculoskeletal: Reports: No Symptoms Skin: Reports: No Symptoms Neurological: Reports: No Symptoms Psychiatric: Reports: No Symptoms - Patient Data Vitals - Most Recent: Last Vital Signs Temp 97.3 F 07/19/20 07:02 Pulse 77 07/19/20 07:02 Resp 16 07/19/20 07:02 BP 109/66 07/19/20 07:02 Pulse Ox 96 07/19/20 07:02 Weight - Most Recent: 75.07 kg I&O - Last 24 Hours: Intake & Output 07/18/20 07/19/20 07/19/20 22:59 06:59 14:59 Intake Total 336 1075 Output Total 2300 1500 Balance -1964 - Lab Results Last 24 Hours: Laboratory Results - last 24 hr 07/18/20 07/18/20 07/18/20 Range/Units 08:13 08:13 08:13 WBC (4.0-11.0) K/uL RBC 2.40 L (4.30-5.90) M/uL Hgb (12.0-16.0) g/dL Hct (36.0-46.0) % MCV (80.0-98.0) fL MCH (27.0-32.0) pg MCHC (31.0-37.0) g/dL RDW Std Deviation (28.0-62.0) fl RDW Coeff of [place] (11.0-15.0) % Plt Count (150-400) K/uL MPV (7.40-12.00) fL Neut % (Auto) (48.0-80.0) % Lymph % (Auto) (16.0-40.0) % [place] % (Auto) (0.0-15.0) % Eos % (Auto) (0.0-7.0) % Baso % (Auto) (0.0-1.5) % Neut # (Auto) (1.4-5.7) K/uL Lymph # (Auto) (0.6-2.4) K/uL [place] # (Auto) (0.0-0.8) K/uL Eos # (Auto) (0.0-0.7) K/uL Baso # (Auto) (0.0-0.1) K/uL Nucleated RBC % /100WBC Nucleated RBCs # K/uL Smear Path Review SENT TO PATHOLOGY Absolute Retic 67.90 (20-80) K/uL Percent Retic 2.8 H (0.5-1.5) % Immature Retic Fraction 28 % Sodium (136-145) mmol/L Potassium (3.5-5.1) mmol/L Chloride (98-107) mmol/L Carbon Dioxide (21.0-32.0) mmol/L BUN (7.0-18.0) mg/dL Creatinine (0.6-1.0) mg/dL Est Cr Clr Drug Dosing mL/min Estimated GFR (MDRD) ml/min Glucose (74-106) mg/dL Calcium (8.5-10.1) mg/dL Phosphorus (2.6-4.7) mg/dL Magnesium (1.8-2.4) mg/dL Iron (50-175) ug/dL TIBC (250-450) ug/dL % Saturation (20-55) % Transferrin Ferritin (8-252) ng/mL Total Bilirubin (0.2-1.0) mg/dL AST (15-37) IU/L ALT (14-63) IU/L Alkaline Phosphatase (46-116) U/L Total Protein (6.4-8.2) g/dL Albumin (3.4-5.0) g/dL Globulin (2.6-4.0) g/dL Albumin/Globulin Ratio (0.9-1.6) Lipase (73-393) U/L Vitamin B12 (193-986) pg/mL Folate (8.60-58.90) ng/mL Blood Type A POSITIVE Antibody Screen NEGATIVE Crossmatch See Detail 07/18/20 07/18/20 07/18/20 Range/Units 08:13 08:13 08:13 WBC (4.0-11.0) K/uL RBC (4.30-5.90) M/uL Hgb (12.0-16.0) g/dL Hct (36.0-46.0) % MCV (80.0-98.0) fL MCH (27.0-32.0) pg MCHC (31.0-37.0) g/dL RDW Std Deviation (28.0-62.0) fl RDW Coeff of [place] (11.0-15.0) % Plt Count (150-400) K/uL MPV (7.40-12.00) fL Neut % (Auto) (48.0-80.0) % Lymph % (Auto) (16.0-40.0) % [place] % (Auto) (0.0-15.0) % Eos % (Auto) (0.0-7.0) % Baso % (Auto) (0.0-1.5) % Neut # (Auto) (1.4-5.7) K/uL Lymph # (Auto) (0.6-2.4) K/uL [place] # (Auto) (0.0-0.8) K/uL Eos # (Auto) (0.0-0.7) K/uL Baso # (Auto) (0.0-0.1) K/uL Nucleated RBC % /100WBC Nucleated RBCs # K/uL Smear Path Review Absolute Retic (20-80) K/uL Percent Retic (0.5-1.5) % Immature Retic Fraction % Sodium (136-145) mmol/L Potassium (3.5-5.1) mmol/L Chloride (98-107) mmol/L Carbon Dioxide (21.0-32.0) mmol/L BUN (7.0-18.0) mg/dL Creatinine (0.6-1.0) mg/dL Est Cr Clr Drug Dosing mL/min Estimated GFR (MDRD) ml/min Glucose (74-106) mg/dL Calcium (8.5-10.1) mg/dL Phosphorus (2.6-4.7) mg/dL Magnesium (1.8-2.4) mg/dL Iron 11 L (50-175) ug/dL TIBC 414 (250-450) ug/dL % Saturation 2.66 L (20-55) % Transferrin 289.8 Ferritin 9 (8-252) ng/mL Total Bilirubin (0.2-1.0) mg/dL AST (15-37) IU/L ALT (14-63) IU/L Alkaline Phosphatase (46-116) U/L Total Protein (6.4-8.2) g/dL Albumin (3.4-5.0) g/dL Globulin (2.6-4.0) g/dL Albumin/Globulin Ratio (0.9-1.6) Lipase 220 (73-393) U/L Vitamin B12 360 (193-986) pg/mL Folate 25.20 (8.60-58.90) ng/mL Blood Type Antibody Screen Crossmatch 07/18/20 07/19/20 07/19/20 Range/Units 17:00 05:19 05:19 WBC 8.65 (4.0-11.0) K/uL RBC 2.95 L (4.30-5.90) M/uL Hgb 8.6 L 7.8 L (12.0-16.0) g/dL Hct 27.1 L 25.0 L (36.0-46.0) % MCV 84.7 (80.0-98.0) fL MCH 26.4 L (27.0-32.0) pg MCHC 31.2 (31.0-37.0) g/dL RDW Std Deviation 45.3 (28.0-62.0) fl RDW Coeff of [place] 15 (11.0-15.0) % Plt Count 242 (150-400) K/uL MPV 8.40 (7.40-12.00) fL Neut % (Auto) 59.6 (48.0-80.0) % Lymph % (Auto) 28.2 (16.0-40.0) % [place] % (Auto) 9.8 (0.0-15.0) % Eos % (Auto) 2.2 (0.0-7.0) % Baso % (Auto) 0.2 (0.0-1.5) % Neut # (Auto) 5.2 (1.4-5.7) K/uL Lymph # (Auto) 2.4 (0.6-2.4) K/uL [place] # (Auto) 0.9 H (0.0-0.8) K/uL Eos # (Auto) 0.2 (0.0-0.7) K/uL Baso # (Auto) 0.0 (0.0-0.1) K/uL Nucleated RBC % 0.0 /100WBC Nucleated RBCs # 0 K/uL Smear Path Review Absolute Retic (20-80) K/uL Percent Retic (0.5-1.5) % Immature Retic Fraction % Sodium 139 (136-145) mmol/L Potassium 3.7 (3.5-5.1) mmol/L Chloride 105 (98-107) mmol/L Carbon Dioxide 26.6 (21.0-32.0) mmol/L BUN 5 L (7.0-18.0) mg/dL Creatinine 0.5 L (0.6-1.0) mg/dL Est Cr Clr Drug Dosing 136.90 mL/min Estimated GFR (MDRD) > 60.0 ml/min Glucose 108 H (74-106) mg/dL Calcium 8.0 L (8.5-10.1) mg/dL Phosphorus 3.0 (2.6-4.7) mg/dL Magnesium 2.2 (1.8-2.4) mg/dL Iron (50-175) ug/dL TIBC (250-450) ug/dL % Saturation (20-55) % Transferrin Ferritin (8-252) ng/mL Total Bilirubin 0.3 (0.2-1.0) mg/dL AST 14 L (15-37) IU/L ALT 19 (14-63) IU/L Alkaline Phosphatase 64 (46-116) U/L Total Protein 5.8 L (6.4-8.2) g/dL Albumin 2.8 L (3.4-5.0) g/dL Globulin 3.0 (2.6-4.0) g/dL Albumin/Globulin Ratio 0.9 (0.9-1.6) Lipase (73-393) U/L Vitamin B12 (193-986) pg/mL Folate (8.60-58.90) ng/mL Blood Type Antibody Screen Crossmatch Sky Results Last 24 Hours: Microbiology 07/18/20 11:45 Stool Occult Blood (SKY) - Final Stool / Feces Med Orders - Current: Current Medications Bisacodyl (Dulcolax) 10 mg RECTAL DAILY PRN PRN Reason: Constipation Last Admin: 07/18/20 10:04 Dose: 10 mg Documented by: Docusate Sodium (Colace) 100 mg PO BID PRN PRN Reason: Constipation Folic Acid (Folic Acid) 1 mg SUBCUT DAILY [facility] Last Admin: 07/18/20 08:42 Dose: 1 mg Documented by: Hydromorphone HCl (Dilaudid) 0.5 mg IVPUSH Q2H PRN PRN Reason: Pain (severe 7-10) Last Admin: 07/19/20 06:25 Dose: 0.5 mg Documented by: Thiamine HCl 100 mg/ Sodium (Chloride) 101 mls @ 202 mls/hr IV DAILY [facility] Last Admin: 07/18/20 08:50 Dose: 202 mls/hr Documented by: Pantoprazole Sodium 40 mg/ (Sodium Chloride) 10 mls @ 300 mls/hr IV Q12H [facility] Last Admin: 07/19/20 03:17 Dose: 300 mls/hr Documented by: Lactated Ringer's (Ringers, Lactated) 1,000 mls @ 125 mls/hr IV Q8H [facility] Last Admin: 07/19/20 00:22 Dose: 125 mls/hr Documented by: Magnesium Sulfate (Magnesium Sulfate In Water Premix) 4 gm in 100 mls @ 50 mls/hr IV ONETIME [facility] Last Admin: 07/18/20 17:09 Dose: 50 mls/hr Documented by: Labetalol HCl (Normodyne) 10 mg IVPUSH Q4H PRN PRN Reason: SBP>180 Lorazepam (Ativan) 0 mg IVPUSH Q4H PRN; Protocol PRN Reason: CIWAA Ondansetron HCl (Zofran) 4 mg IVPUSH Q4H PRN PRN Reason: Nausea Sodium Chloride (Saline Flush) 2.5 ml FLUSH ASDIRECTED PRN PRN Reason: Keep Vein Open Sodium Chloride (Normal Saline) 10 ml IV ASDIRECTED PRN PRN Reason: IV Use Discontinued Medications Hydromorphone HCl (Dilaudid) 1 mg IVPUSH ONETIME ONE Stop: 07/17/20 10:42 Last Admin: 07/17/20 10:45 Dose: 1 mg Documented by: Hydromorphone HCl (Dilaudid) 1 mg IVPUSH ONETIME ONE Stop: 07/17/20 13:13 Last Admin: 07/17/20 13:25 Dose: 1 mg Documented by: Hydromorphone HCl (Dilaudid) 0.5 mg IVPUSH Q2H PRN PRN Reason: Pain (severe 7-10) Last Admin: 07/17/20 15:31 Dose: 0.5 mg Documented by: Sodium Chloride (Normal Saline) 1,000 mls @ 999 mls/hr IV STAT ONE Stop: 07/17/20 11:41 Last Admin: 07/17/20 10:45 Dose: 999 mls/hr Documented by: Sodium Chloride (Normal Saline) 1,000 mls @ 999 mls/hr IV STAT ONE Stop: 07/17/20 13:49 Last Admin: 07/17/20 13:01 Dose: 999 mls/hr Documented by: Ceftriaxone Sodium/Dextrose 1 (gm/ Premix) 50 mls @ 100 mls/hr IV ONETIME ONE Stop: 07/17/20 13:31 Last Admin: 07/17/20 13:05 Dose: 100 mls/hr Documented by: Lactated Ringer's (Ringers, Lactated) 1,000 mls @ 999 mls/hr IV .BOLUS [facility] Last Admin: 07/17/20 15:24 Dose: 999 mls/hr Documented by: Lactated Ringer's (Ringers, Lactated) 1,000 mls @ 200 mls/hr IV Q5H [facility] Last Admin: 07/18/20 07:30 Dose: 200 mls/hr Documented by: Iron Sucrose 200 mg/ Sodium (Chloride) 110 mls @ 400 mls/hr IV ONETIME ONE Stop: 07/18/20 17:16 Last Admin: 07/18/20 16:18 Dose: 400 mls/hr Documented by: Iopamidol (Isovue Multipack-370 (76%)) 100 ml IVPUSH ONETIME STA Stop: 07/17/20 11:49 Last Admin: 07/17/20 12:30 Dose: 100 ml Documented by: Ondansetron HCl (Zofran) 4 mg IVPUSH ONETIME ONE Stop: 07/17/20 10:42 Last Admin: 07/17/20 10:45 Dose: 4 mg Documented by: Sodium Chloride (Saline Flush) 10 ml FLUSH ASDIRECTED PRN PRN Reason: Keep Vein Open Last Admin: 07/17/20 10:46 Dose: 10 ml Documented by: Sodium Chloride (Saline Flush) 2.5 ml FLUSH ASDIRECTED PRN PRN Reason: Keep Vein Open Last Admin: 07/17/20 10:46 Dose: 2.5 ml Documented by: - Exam General: Alert, Oriented, Cooperative, No Acute Distress Lungs: Clear to Auscultation, Normal Respiratory Effort Cardiovascular: Regular Rate, Regular Rhythm GI/Abdominal Exam: Normal Bowel Sounds, Soft, Tender (Epigastric but much improved) Back Exam: Normal Inspection, Full Range of Motion Extremities: Normal Inspection, Normal Range of Motion, Non-Tender Wound/Incisions: Healing Well Neurological: No New Focal Deficit Psy/Mental Status: Alert, Normal Affect, Normal Mood Sepsis Event Note - Evaluation Sepsis Screening Result: No Definite Risk - Focused Exam Vital Signs: Vital Signs Temp Pulse Resp BP Pulse Ox 07/19/20 07:02 97.3 F 77 16 109/66 96 07/19/20 03:36 97.1 F 80 16 123/82 96 07/18/20 23:00 97.4 F 81 17 164/96 H 97 - Problem List & Annotations (1) Acute alcoholic pancreatitis SNOMED Code(s): 674670456 Code(s): K85.20 - ALCOHOL INDUCED ACUTE PANCREATITIS WITHOUT NECROSIS OR INFCT Status: Acute Current Visit: No Qualifiers: Acute pancreatitis complication: no infection or necrosis Qualified Code(s): K85.20 - Alcohol induced acute pancreatitis without necrosis or infection (2) Anemia SNOMED Code(s): 484452577 Code(s): D64.9 - ANEMIA, UNSPECIFIED Status: Acute Current Visit: Yes (3) UTI (urinary tract infection) SNOMED Code(s): 15889670 Code(s): N39.0 - URINARY TRACT INFECTION, SITE NOT SPECIFIED Status: Acute Current Visit: Yes Qualifiers: Urinary tract infection type: acute cystitis Hematuria presence: without hematuria Qualified Code(s): N30.00 - Acute cystitis without hematuria (4) Alcohol abuse SNOMED Code(s): 96328342 Code(s): F10.10 - ALCOHOL ABUSE, UNCOMPLICATED Status: Chronic Current Visit: No (5) Pancreatic cyst SNOMED Code(s): 01006805 Code(s): K86.2 - CYST OF PANCREAS Status: Chronic Current Visit: No (6) GERD (gastroesophageal reflux disease) SNOMED Code(s): 467737511 Code(s): K21.9 - GASTRO-ESOPHAGEAL REFLUX DISEASE WITHOUT ESOPHAGITIS Status: Chronic Current Visit: No Qualifiers: Esophagitis presence: esophagitis presence not specified Qualified Code(s): K21.9 - Gastro-esophageal reflux disease without esophagitis (7) Superior mesenteric vein thrombosis SNOMED Code(s): 184643018 Code(s): I81 - PORTAL VEIN THROMBOSIS Status: Chronic Current Visit: No (8) Chronic pancreatitis SNOMED Code(s): 944175281 Code(s): K86.1 - OTHER CHRONIC PANCREATITIS Status: Chronic Current Visit: No Qualifiers: Pancreatitis type: alcohol induced Qualified Code(s): K86.0 - Alcohol- induced chronic pancreatitis - Problem List Review Problem List Initiated/Reviewed/Updated: Yes - My Orders Last 24 Hours: My Active Orders 07/18/20 07:58 Verify Patient Consent Obtain [RC] ASDIRECTED 07/18/20 08:13 RED BLOOD CELLS LP [BBK] Routine TYPE AND SCREEN [BBK] Routine 07/18/20 09:07 Communication Order [RC] ROUTINE 07/18/20 09:15 Lactated Ringers [Ringers, Lactated] 1,000 ml IV Q8H 07/18/20 11:45 H PYLORI STOOL ANTIGEN [MREF] Routine 07/18/20 12:58 Communication Order [RC] ROUTINE 07/18/20 18:00 Magnesium Sulfate/Water [Magnesium Sulfate in Water 2 GM/50 ML] 4 gm in 100 ml IV ONETIME 07/19/20 07:58 Transfuse RBC [Transfuse Red Blood Cells] [COMM] Routine 07/20/20 05:11 CBC WITH AUTO DIFF [HEME] AM COMPREHENSIVE METABOLIC PN,CMP [CHEM] AM MAGNESIUM [CHEM] AM PHOSPHORUS [CHEM] AM 07/21/20 05:11 CBC WITH AUTO DIFF [HEME] AM COMPREHENSIVE METABOLIC PN,CMP [CHEM] AM MAGNESIUM [CHEM] AM PHOSPHORUS [CHEM] AM 07/22/20 05:11 CBC WITH AUTO DIFF [HEME] AM COMPREHENSIVE METABOLIC PN,CMP [CHEM] AM MAGNESIUM [CHEM] AM PHOSPHORUS [CHEM] AM - Plan Plan:: This 35-year-old female admitted with acute on chronic alcoholic pancreatitis 1. Acute on chronic alcoholic pancreatitis -We will start clear liquid diet -Stop LR -Stop Dilaudid oxycodone every 4 hours as needed pain -Zofran as needed nausea 2. Anemia -Upper abdominal varices noted on CT patient denies any bleeding in stool or emesis. -Protonix twice daily IV -Hemoglobin improved to 8.6 with 2 units of blood did decrease to 7.8 today likely dilutional again. Will transfuse 2 more units of blood today -Hemoccult positive H. pylori negative -Discussed case with Dr. Carter, general surgery. She agrees with current plan no urgency for EGD or colonoscopy given the history of varices she would likely need to have endoscopy with GI specialist or at a larger facility. We will send referral to [facility] as patient request to be seen there. She had previously seen Dr. Nova at [facility] in [place]. Reports that the last endoscopy was maybe a year ago and it was only an upper endoscopy. If hemoglobin does not remain stable may need to consider transfer inpatient. -Gave 200 mg of IV iron yesterday will give another 200 mg a day for iron deficiency anemia. -Anemia is likely mixed picture as she may have had a bleed in the past as well as iron deficiency anemia and chronic alcoholism. 3. UTI - mild UTI, asymptomatic - UC mixed lesley due to patient being asymptomatic will not treat. 4. Alcohol abuse -Denies any withdrawal symptoms last drink was last week. -Thiamine and folic acid -CIWAA with Ativan protocol VTE prophylaxis: SCDs only GI prophylaxis: Protonix IV twice daily CODE STATUS: Full code Dispo: Possible discharge in a.m. if hemoglobin stable
[2020-07-19] MEDS: Folic Acid 50 MG/10 ML MDV SUBCUT SCH (08:25)
[2020-07-19] MEDS: Thiamine 100 MG in Sodium Chloride 0.9% 100 ML IV SCH (10:13)
[2020-07-19] MEDS ORDERED: Iron Sucrose Complex 200 MG in Sodium Chloride 0.9% 100 ML IV ONE (10:45)
[2020-07-19] MEDS: oxyCODONE 5 MG Tab PO PRN ×3 (13:50→22:12)
[2020-07-20] MEDS: oxyCODONE 5 MG Tab PO PRN ×3 (03:30→12:40)
[2020-07-20] MEDS: Pantoprazole 40 MG in Sodium Chloride 0.9% 10 ML IV SCH (03:30)
[2020-07-20 06:31] LABS: BLOOD UREA NITROGEN,BUN 7 mg/dL (7.0-18.0); CARBON DIOXIDE,CO2 25.5 mmol/L (21.0-32.0); CHLORIDE,CL 106 mmol/L (98-107); GLUCOSE RANDOM 95 mg/dL (74-106); POTASSIUM,K 3.9 mmol/L (3.5-5.1); SODIUM,NA 139 mmol/L (136-145)
[2020-07-20] MEDS: Folic Acid 50 MG/10 ML MDV SUBCUT SCH (09:28)
[2020-07-20] MEDS: Thiamine 100 MG in Sodium Chloride 0.9% 100 ML IV SCH (09:32)
--- NOTE | 2020-07-20 14:28 | PCM.DCSUM1 ---
Discharge Summary - Hospital Course Diagnosis: Stroke: No - Discharge Data Discharge Date: 07/20/20 Discharge Disposition: Home, Self-Care 01 Condition: Good - Referral to Home Health Primary Care Physician: Jarrett Harper MD - Patient Instructions Diet: Usual Diet as Tolerated Activity: As Tolerated Driving: May Drive Today Showering/Bathing: May Shower Notify Provider of: Fever, Increased Pain, Swelling and Redness, Drainage, Nausea and/or Vomiting - Discharge Plan *PRESCRIPTION DRUG MONITORING PROGRAM REVIEWED*: No *COPY OF PRESCRIPTION DRUG MONITORING REPORT IN PATIENT RENÉE: No Prescriptions/Med Rec: Docusate Sodium [Colace] 100 mg PO BID PRN #30 cap PRN Reason: Constipation Folic Acid 1 mg SUBCUT DAILY #30 mdv Ferrous Sulfate [Iron] 325 mg PO DAILY #30 tablet oxyCODONE 5 mg PO Q4H PRN #15 tablet PRN Reason: Pain Pantoprazole Sodium [Protonix] 40 mg PO BID #60 tablet. Thiamine [Vitamin B-1] 100 mg IV DAILY #30 mdv Home Medications: Home Meds Ondansetron [Zofran ODT] 4 mg PO Q6H PRN #12 tab.dis 07/15/20 [Rx] Docusate Sodium [Colace] 100 mg PO BID PRN #30 cap 07/20/20 [Rx] Ferrous Sulfate [Iron] 325 mg PO DAILY #30 tablet 07/20/20 [Rx] Folic Acid 1 mg SUBCUT DAILY #30 mdv 07/20/20 [Rx] Pantoprazole Sodium [Protonix] 40 mg PO BID #60 tablet. 07/20/20 [Rx] Thiamine [Vitamin B-1] 100 mg IV DAILY #30 mdv 07/20/20 [Rx] oxyCODONE 5 mg PO Q4H PRN #15 tablet 07/20/20 [Rx] Referrals: Jarrett Harper MD [Primary Care Provider] - 08/05/20 10:00 am - Patient Data Vitals - Most Recent: Last Vital Signs Temp 36.4 C 07/20/20 08:00 Pulse 86 07/20/20 08:00 Resp 16 07/20/20 08:00 BP 138/98 H 07/20/20 08:00 Pulse Ox 96 07/20/20 08:00 Weight - Most Recent: 75.07 kg I&O - Last 24 hours: Intake & Output 07/19/20 07/20/20 07/20/20 22:59 06:59 14:59 Intake Total 1590 1000 Output Total 900 1100 Balance 690 -100 Lab Results - Last 24 hrs: Laboratory Results - last 24 hr 07/18/20 07/19/20 07/20/20 Range/Units 08:13 20:33 05:30 WBC 8.07 (4.0-11.0) K/uL RBC 3.96 L (4.30-5.90) M/uL Hgb 10.5 L 10.5 L (12.0-16.0) g/dL Hct 33.7 L 33.5 L (36.0-46.0) % MCV 84.6 (80.0-98.0) fL MCH 26.5 L (27.0-32.0) pg MCHC 31.3 (31.0-37.0) g/dL RDW Std Deviation 51.6 (28.0-62.0) fl RDW Coeff of [place] 17 H (11.0-15.0) % Plt Count 250 (150-400) K/uL MPV 8.60 (7.40-12.00) fL Neut % (Auto) 59.9 (48.0-80.0) % Lymph % (Auto) 25.2 (16.0-40.0) % [place] % (Auto) 12.1 (0.0-15.0) % Eos % (Auto) 2.4 (0.0-7.0) % Baso % (Auto) 0.4 (0.0-1.5) % Neut # (Auto) 4.8 (1.4-5.7) K/uL Lymph # (Auto) 2.0 (0.6-2.4) K/uL [place] # (Auto) 1.0 H (0.0-0.8) K/uL Eos # (Auto) 0.2 (0.0-0.7) K/uL Baso # (Auto) 0.0 (0.0-0.1) K/uL Nucleated RBC % 0.5 /100WBC Nucleated RBCs # 0 K/uL Sodium (136-145) mmol/L Potassium (3.5-5.1) mmol/L Chloride (98-107) mmol/L Carbon Dioxide (21.0-32.0) mmol/L BUN (7.0-18.0) mg/dL Creatinine (0.6-1.0) mg/dL Est Cr Clr Drug Dosing mL/min Estimated GFR (MDRD) ml/min Glucose (74-106) mg/dL Calcium (8.5-10.1) mg/dL Phosphorus (2.6-4.7) mg/dL Magnesium (1.8-2.4) mg/dL Total Bilirubin (0.2-1.0) mg/dL AST (15-37) IU/L ALT (14-63) IU/L Alkaline Phosphatase (46-116) U/L Total Protein (6.4-8.2) g/dL Albumin (3.4-5.0) g/dL Globulin (2.6-4.0) g/dL Albumin/Globulin Ratio (0.9-1.6) Blood Type A POSITIVE Antibody Screen NEGATIVE Crossmatch See Detail 07/20/20 Range/Units 05:30 WBC (4.0-11.0) K/uL RBC (4.30-5.90) M/uL Hgb (12.0-16.0) g/dL Hct (36.0-46.0) % MCV (80.0-98.0) fL MCH (27.0-32.0) pg MCHC (31.0-37.0) g/dL RDW Std Deviation (28.0-62.0) fl RDW Coeff of [place] (11.0-15.0) % Plt Count (150-400) K/uL MPV (7.40-12.00) fL Neut % (Auto) (48.0-80.0) % Lymph % (Auto) (16.0-40.0) % [place] % (Auto) (0.0-15.0) % Eos % (Auto) (0.0-7.0) % Baso % (Auto) (0.0-1.5) % Neut # (Auto) (1.4-5.7) K/uL Lymph # (Auto) (0.6-2.4) K/uL [place] # (Auto) (0.0-0.8) K/uL Eos # (Auto) (0.0-0.7) K/uL Baso # (Auto) (0.0-0.1) K/uL Nucleated RBC % /100WBC Nucleated RBCs # K/uL Sodium 139 (136-145) mmol/L Potassium 3.9 (3.5-5.1) mmol/L Chloride 106 (98-107) mmol/L Carbon Dioxide 25.5 (21.0-32.0) mmol/L BUN 7 (7.0-18.0) mg/dL Creatinine 0.6 (0.6-1.0) mg/dL Est Cr Clr Drug Dosing 114.08 mL/min Estimated GFR (MDRD) > 60.0 ml/min Glucose 95 (74-106) mg/dL Calcium 8.8 (8.5-10.1) mg/dL Phosphorus 3.6 (2.6-4.7) mg/dL Magnesium 2.0 (1.8-2.4) mg/dL Total Bilirubin 0.4 (0.2-1.0) mg/dL AST 12 L (15-37) IU/L ALT 18 (14-63) IU/L Alkaline Phosphatase 64 (46-116) U/L Total Protein 6.3 L (6.4-8.2) g/dL Albumin 3.0 L (3.4-5.0) g/dL Globulin 3.3 (2.6-4.0) g/dL Albumin/Globulin Ratio 0.9 (0.9-1.6) Blood Type Antibody Screen Crossmatch CHRISTINE Results - Last 24 hrs: Microbiology 07/18/20 11:45 Helicobacter pylori Antigen - Final Stool / Feces Med Orders - Current: Current Medications Bisacodyl (Dulcolax) 10 mg RECTAL DAILY PRN PRN Reason: Constipation Last Admin: 07/18/20 10:04 Dose: 10 mg Documented by: Docusate Sodium (Colace) 100 mg PO BID PRN PRN Reason: Constipation Folic Acid (Folic Acid) 1 mg SUBCUT DAILY [facility] Last Admin: 07/20/20 09:28 Dose: 1 mg Documented by: Hydromorphone HCl (Dilaudid) 0.5 mg IVPUSH Q2H PRN PRN Reason: Pain (severe 7-10) Last Admin: 07/19/20 12:03 Dose: 0.5 mg Documented by: Thiamine HCl 100 mg/ Sodium (Chloride) 101 mls @ 202 mls/hr IV DAILY [facility] Last Admin: 07/20/20 09:32 Dose: 202 mls/hr Documented by: Pantoprazole Sodium 40 mg/ (Sodium Chloride) 10 mls @ 300 mls/hr IV Q12H [facility] Last Admin: 07/20/20 03:30 Dose: 300 mls/hr Documented by: Magnesium Sulfate (Magnesium Sulfate In Water Premix) 4 gm in 100 mls @ 50 mls/hr IV ONETIME [facility] Last Admin: 07/18/20 17:09 Dose: 50 mls/hr Documented by: Labetalol HCl (Normodyne) 10 mg IVPUSH Q4H PRN PRN Reason: SBP>180 Lorazepam (Ativan) 0 mg IVPUSH Q4H PRN; Protocol PRN Reason: CIWAA Ondansetron HCl (Zofran) 4 mg IVPUSH Q4H PRN PRN Reason: Nausea Oxycodone HCl (Oxycodone) 5 mg PO Q4H PRN PRN Reason: Pain Last Admin: 07/20/20 12:40 Dose: 5 mg Documented by: Sodium Chloride (Saline Flush) 2.5 ml FLUSH ASDIRECTED PRN PRN Reason: Keep Vein Open Sodium Chloride (Normal Saline) 10 ml IV ASDIRECTED PRN PRN Reason: IV Use Discontinued Medications Hydromorphone HCl (Dilaudid) 1 mg IVPUSH ONETIME ONE Stop: 07/17/20 10:42 Last Admin: 07/17/20 10:45 Dose: 1 mg Documented by: Hydromorphone HCl (Dilaudid) 1 mg IVPUSH ONETIME ONE Stop: 07/17/20 13:13 Last Admin: 07/17/20 13:25 Dose: 1 mg Documented by: Hydromorphone HCl (Dilaudid) 0.5 mg IVPUSH Q2H PRN PRN Reason: Pain (severe 7-10) Last Admin: 07/17/20 15:31 Dose: 0.5 mg Documented by: Sodium Chloride (Normal Saline) 1,000 mls @ 999 mls/hr IV STAT ONE Stop: 07/17/20 11:41 Last Admin: 07/17/20 10:45 Dose: 999 mls/hr Documented by: Sodium Chloride (Normal Saline) 1,000 mls @ 999 mls/hr IV STAT ONE Stop: 07/17/20 13:49 Last Admin: 07/17/20 13:01 Dose: 999 mls/hr Documented by: Ceftriaxone Sodium/Dextrose 1 (gm/ Premix) 50 mls @ 100 mls/hr IV ONETIME ONE Stop: 07/17/20 13:31 Last Admin: 07/17/20 13:05 Dose: 100 mls/hr Documented by: Lactated Ringer's (Ringers, Lactated) 1,000 mls @ 999 mls/hr IV .BOLUS [facility] Last Admin: 07/17/20 15:24 Dose: 999 mls/hr Documented by: Lactated Ringer's (Ringers, Lactated) 1,000 mls @ 200 mls/hr IV Q5H [facility] Last Admin: 07/18/20 07:30 Dose: 200 mls/hr Documented by: Lactated Ringer's (Ringers, Lactated) 1,000 mls @ 125 mls/hr IV Q8H [facility] Last Admin: 07/19/20 08:20 Dose: 125 mls/hr Documented by: Iron Sucrose 200 mg/ Sodium (Chloride) 110 mls @ 400 mls/hr IV ONETIME ONE Stop: 07/18/20 17:16 Last Admin: 07/18/20 16:18 Dose: 400 mls/hr Documented by: Iron Sucrose 200 mg/ Sodium (Chloride) 110 mls @ 400 mls/hr IV ONETIME ONE Stop: 07/19/20 11:01 Last Admin: 07/19/20 11:17 Dose: 400 mls/hr Documented by: Iopamidol (Isovue Multipack-370 (76%)) 100 ml IVPUSH ONETIME STA Stop: 07/17/20 11:49 Last Admin: 07/17/20 12:30 Dose: 100 ml Documented by: Ondansetron HCl (Zofran) 4 mg IVPUSH ONETIME ONE Stop: 07/17/20 10:42 Last Admin: 07/17/20 10:45 Dose: 4 mg Documented by: Sodium Chloride (Saline Flush) 10 ml FLUSH ASDIRECTED PRN PRN Reason: Keep Vein Open Last Admin: 07/17/20 10:46 Dose: 10 ml Documented by: Sodium Chloride (Saline Flush) 2.5 ml FLUSH ASDIRECTED PRN PRN Reason: Keep Vein Open Last Admin: 07/17/20 10:46 Dose: 2.5 ml Documented by:
== END 2020-07-20 15:15 | disposition home or self-care (01) | DRG 282 ==
LOC: MW.ED 10:15 → MW.MS 13:52
PROVIDERS: ADMIT Student in an Organized Health Care Education/Training Program; ATTEND Student in an Organized Health Care Education/Training Program
DX: K85.20 Alcohol induced acute pancreatitis without necrosis or infection (principal); K86.0 Alcohol-induced chronic pancreatitis; N30.00 Acute cystitis without hematuria; F10.10 Alcohol abuse, uncomplicated; D50.9 Iron deficiency anemia, unspecified; Z20.822 Contact with and (suspected) exposure to COVID-19; K86.2 Cyst of pancreas; K21.9 Gastro-esophageal reflux disease without esophagitis; F41.9 Anxiety disorder, unspecified; F32.9 Major depressive disorder, single episode, unspecified; Z79.899 Other long term (current) drug therapy; Z86.718 Personal history of other venous thrombosis and embolism; I86.8 Varicose veins of other specified sites
CPT/HCPCS: 36415; 36430; 74177; 74177-26; 80053; 81001; 82272; 82607; 82728; 82746; 83550; 83605; 83690; 83735; 84100; 85014; 85018; 85025; 85045; 86850; 86900; 86901; 86920; 86921; 86922; 87086; 87338; 88104; 96365; 96375; 96376; 97802; 99284; 99285-25; A9270-GY; C9113; J0696; J1170; J1756; J2405; J3411; J3475; J7030; J7120; P9016; Q9967; U0002

== ENCOUNTER 2020-09-27 11:29 | Emergency (ER) | payer BC ==
[2020-09-27] MEDS ORDERED: Sodium Chloride 0.9% 10 ML Syringe FLUSH PRN (11:37)
[2020-09-27] MEDS ORDERED: Sodium Chloride 0.9% 2.5 ML Syringe FLUSH PRN (11:37)
[2020-09-27] MEDS ORDERED: Adenosine 6 MG/2 ML SDV IVPUSH ONE (11:38)
[2020-09-27] MEDS ORDERED: Sodium Chloride 0.9% 1,000 ML IV SCH (11:45)
--- NOTE | 2020-09-27 11:53 | EDM.PDOC ---
ED HPI GENERAL MEDICAL PROBLEM - General Chief Complaint: Chest Pain Stated Complaint: RACING HEART / CHEST PAIN Time Seen by Provider: 09/27/20 11:36 - History of Present Illness INITIAL COMMENTS - FREE TEXT/NARRATIVE: History of present illness: This patient reports that 40 minutes ago she is resting when she suddenly felt dizzy. She also felt like her heart was pounding quickly. Her dizziness was lightheadedness and associated with diaphoresis and nausea. She did not have any chest pain but was quite uncomfortable with the palpitations. She drank more than usual last night. She has periodically had trouble with exc ess drinking. She is also had palpitations lightheadedness off and on for years. She is never sought medical attention for it. Today it was sustained so she came for help. [] Review of systems: As per history of present illness and below otherwise all systems reviewed and negative. Past medical history: As per history of present illness and as reviewed below otherwise noncontributory. Surgical history: As per history of present illness and as reviewed below otherwise noncontributory. Social history: No reported history of drug or alcohol abuse. Family history: As per history of present illness and as reviewed below otherwise noncontributory. Physical exam: Constitutional - well developed, well-nourished and in no acute distress HEENT - normocephalic, no evidence of trauma - external nose and mouth normal - no mass in neck and no JVD - mucosae moist EYES - full EOM, PERRL, no icterus - no evidence of inflammation, injection, or drainage Respiratory - no respiratory distress, equal bilateral expansion, lungs clear to auscultation and no abnormal lung sounds Cardiovascular - Regular Rhythm with S1 and S2 appreciated and no murmur, gallop or rub. GI - abdomen soft without distension or organomegaly - normal bowel sounds - no guard or rebound Musculoskeletal no gross deformity of long bones or joints - no tenderness, swelling or edema Neurologic - Alert and oriented times four - CN II-XII grossly intact - motor sensory and coordination symmetrically normal Psychiatric - appropriate mood and affect with normal thought content Hematologic - No petechiae or purpura - mucosa appropriate color and sclera not pale - normal nail bed color and refill Integument - no rash or evidence of trauma - normal turgor Diagnostics: [] Therapeutics: [] Impression: [] Plan: [] Definitive disposition and diagnosis as appropriate pending reevaluation and review of above. chest Pain Score (Numeric/FACES): 6 - Related Data Allergies Allergy/AdvReac Type Severity Reaction Status Date / Time No Known Allergies Allergy Verified 09/27/20 13:20 Home Meds: Home Meds Ondansetron [Zofran ODT] 4 mg PO Q6H PRN #12 tab.dis 07/15/20 [Rx] Docusate Sodium [Colace] 100 mg PO BID PRN #30 cap 07/20/20 [Rx] Ferrous Sulfate [Iron] 325 mg PO DAILY #30 tablet 07/20/20 [Rx] Folic Acid 1 mg SUBCUT DAILY #30 mdv 07/20/20 [Rx] Pantoprazole Sodium [Protonix] 40 mg PO BID #60 tablet. 07/20/20 [Rx] Thiamine [Vitamin B-1] 100 mg IV DAILY #30 mdv 07/20/20 [Rx] oxyCODONE 5 mg PO Q4H PRN #15 tablet 07/20/20 [Rx] Magnesium Chloride 256 mg PO BID #80 tablet. 09/27/20 [Rx] Past Medical History - Past Health History Medical/Surgical History: Denies Medical/Surgical History HEENT History: Reports: None Cardiovascular History: Reports: Blood Clots/VTE/DVT Other Cardiovascular History: blood clot on the liver Respiratory History: Reports: None Gastrointestinal History: Reports: Pancreatitis Genitourinary History: Reports: None [employer] History: Reports: None Musculoskeletal History: Reports: None Neurological History: Reports: None Psychiatric History: Reports: Addiction, Anxiety, Depression Other Psychiatric History: ETOH Endocrine/Metabolic History: Reports: None Hematologic History: Reports: None Immunologic History: Reports: None Oncologic (Cancer) History: Reports: None Dermatologic History: Reports: None - Infectious Disease History Infectious Disease History: Reports: Chicken Pox - Past Surgical History Head Surgeries/Procedures: Reports: None HEENT Surgical History: Reports: None Cardiovascular Surgical History: Reports: None Respiratory Surgical History: Reports: None GI Surgical History: Reports: EGD Female Surgical History: Reports: None Endocrine Surgical History: Reports: None Neurological Surgical History: Reports: None Musculoskeletal Surgical History: Reports: None Oncologic Surgical History: Reports: None Dermatological Surgical History: Reports: None Social & Family History - Family History Family Medical History: No Pertinent Family History Cardiac: Reports: [place] - Caffeine Use Caffeine Use: Reports: Soda Other Caffeine Use: 2 Diet Cokes a day - Living Situation & Occupation Living situation: Reports: Single Occupation: Unemployed ED ROS GENERAL - Review of Systems Review Of Systems: Comprehensive ROS is negative, except as noted in HPI. ED EXAM, GENERAL - Physical Exam Exam: See Below Free Text/Narrative:: My physical exam is in the HPI #2 Interpretation EKG Interpretation Comments: EKG done at 11:48 AM sinus tachycardia heart rate 105 axis 52. There is Q-wave in V1 and late transition to R wave with some ST depression in the precordium. Impression conversion to sinus rhythm with possible anterior infarct in the past as well as possible anterior ischemia. #1 Interpretation EKG Interpretation Comments: KG done at 11:31 AM supraventricular tachycardia heart rate 230 QRS axis 76 Q- wave in V1 and late transition to R wave in the precordium. No prior for comparison. Impression SVT and evidence of possible anterior infarct in the past. Course - Vital Signs Text/Narrative:: After the physical examination and IVs were started, I pushed milligrams of adenosine with an immediate flush and elevated left arm. She had multifocal PVCs followed by reversion to a sinus tachycardia. Last Recorded V/S: Last Vital Signs Temp 36.4 C 09/27/20 11:29 Pulse 124 H 09/27/20 12:45 Resp 16 09/27/20 12:45 BP 116/83 09/27/20 12:45 Pulse Ox 99 09/27/20 12:45 - Orders/Labs/Meds Orders: Active Orders 24 hr Category Date Time Status EKG 12 Lead [EKG Documentation Completion] [RC] STAT Care 09/27/20 11:47 Active EKG Documentation Completion [RC] AM Care 09/27/20 11:37 Active Sodium Chloride 0.9% [Normal Saline] 1,000 ml Med 09/27/20 11:45 Active IV ASDIRECTED Sodium Chloride 0.9% [Saline Flush] Med 09/27/20 11:37 Active 10 ml FLUSH ASDIRECTED PRN Sodium Chloride 0.9% [Saline Flush] Med 09/27/20 11:37 Active 2.5 ml FLUSH ASDIRECTED PRN Saline Lock Insert [OM.PC] Stat Oth 09/27/20 11:37 Ordered Medication Orders Sodium Chloride (Normal Saline) 1,000 mls @ 999 mls/hr IV ASDIRECTED CARLITOS Last Admin: 09/27/20 11:45 Dose: 999 mls/hr Documented by: FORREST Sodium Chloride (Sodium Chloride 0.9% 10 Ml Syringe) 10 ml FLUSH ASDIRECTED PRN PRN Reason: Keep Vein Open Last Admin: 09/27/20 11:45 Dose: 10 ml Documented by: FORREST Sodium Chloride (Sodium Chloride 0.9% 2.5 Ml Syringe) 2.5 ml FLUSH ASDIRECTED PRN PRN Reason: Keep Vein Open Last Admin: 09/27/20 11:45 Dose: 2.5 ml Documented by: FORREST Labs: Laboratory Tests 09/27/20 09/27/20 09/27/20 Range/Units 11:39 11:39 11:39 WBC 12.39 H (4.0-11.0) K/uL RBC 4.79 (4.30-5.90) M/uL Hgb 14.1 (12.0-16.0) g/dL Hct 42.9 (36.0-46.0) % MCV 89.6 (80.0-98.0) fL MCH 29.4 (27.0-32.0) pg MCHC 32.9 (31.0-37.0) g/dL RDW Std Deviation 45.8 (28.0-62.0) fl RDW Coeff of [place] 14 (11.0-15.0) % Plt Count 364 (150-400) K/uL MPV 8.90 (7.40-12.00) fL Neut % (Auto) 59.6 (48.0-80.0) % Lymph % (Auto) 32.7 (16.0-40.0) % [place] % (Auto) 6.1 (0.0-15.0) % Eos % (Auto) 1.2 (0.0-7.0) % Baso % (Auto) 0.4 (0.0-1.5) % Neut # (Auto) 7.4 H (1.4-5.7) K/uL Lymph # (Auto) 4.1 H (0.6-2.4) K/uL [place] # (Auto) 0.8 (0.0-0.8) K/uL Eos # (Auto) 0.2 (0.0-0.7) K/uL Baso # (Auto) 0.1 (0.0-0.1) K/uL Nucleated RBC % 0.0 /100WBC Nucleated RBCs # 0 K/uL Sodium 139 (136-145) mmol/L Potassium 3.9 (3.5-5.1) mmol/L Chloride 99 (98-107) mmol/L Carbon Dioxide 21.5 (21.0-32.0) mmol/L BUN 17 (7.0-18.0) mg/dL Creatinine 1.0 (0.6-1.0) mg/dL Est Cr Clr Drug Dosing TNP Estimated GFR (MDRD) > 60.0 ml/min Glucose 174 H (74-106) mg/dL Calcium 9.4 (8.5-10.1) mg/dL Magnesium 1.6 L (1.8-2.4) mg/dL Total Bilirubin 0.2 (0.2-1.0) mg/dL AST 34 (15-37) IU/L ALT 34 (14-63) IU/L Alkaline Phosphatase 124 H (46-116) U/L Troponin I < 0.050 (0.000-0.056) ng/mL Total Protein 8.4 H (6.4-8.2) g/dL Albumin 4.0 (3.4-5.0) g/dL Globulin 4.4 H (2.6-4.0) g/dL Albumin/Globulin Ratio 0.9 (0.9-1.6) HCG, Qual NEGATIVE (NEG) 09/27/20 Range/Units 13:50 WBC (4.0-11.0) K/uL RBC (4.30-5.90) M/uL Hgb (12.0-16.0) g/dL Hct (36.0-46.0) % MCV (80.0-98.0) fL MCH (27.0-32.0) pg MCHC (31.0-37.0) g/dL RDW Std Deviation (28.0-62.0) fl RDW Coeff of [place] (11.0-15.0) % Plt Count (150-400) K/uL MPV (7.40-12.00) fL Neut % (Auto) (48.0-80.0) % Lymph % (Auto) (16.0-40.0) % [place] % (Auto) (0.0-15.0) % Eos % (Auto) (0.0-7.0) % Baso % (Auto) (0.0-1.5) % Neut # (Auto) (1.4-5.7) K/uL Lymph # (Auto) (0.6-2.4) K/uL [place] # (Auto) (0.0-0.8) K/uL Eos # (Auto) (0.0-0.7) K/uL Baso # (Auto) (0.0-0.1) K/uL Nucleated RBC % /100WBC Nucleated RBCs # K/uL Sodium (136-145) mmol/L Potassium (3.5-5.1) mmol/L Chloride (98-107) mmol/L Carbon Dioxide (21.0-32.0) mmol/L BUN (7.0-18.0) mg/dL Creatinine (0.6-1.0) mg/dL Est Cr Clr Drug Dosing Estimated GFR (MDRD) ml/min Glucose (74-106) mg/dL Calcium (8.5-10.1) mg/dL Magnesium (1.8-2.4) mg/dL Total Bilirubin (0.2-1.0) mg/dL AST (15-37) IU/L ALT (14-63) IU/L Alkaline Phosphatase (46-116) U/L Troponin I < 0.050 (0.000-0.056) ng/mL Total Protein (6.4-8.2) g/dL Albumin (3.4-5.0) g/dL Globulin (2.6-4.0) g/dL Albumin/Globulin Ratio (0.9-1.6) HCG, Qual (NEG) Meds: Medications Generic Name Dose Route Start Last Admin Trade Name Freq PRN Reason Stop Dose Admin Sodium Chloride 1,000 mls @ 999 mls/hr 09/27/20 11:45 09/27/20 11:45 Normal Saline IV 999 mls/hr ASDIRECTED CARLITOS Administration Sodium Chloride 10 ml 09/27/20 11:37 09/27/20 11:45 Sodium Chloride 0.9% 10 Ml Syringe FLUSH 10 ml ASDIRECTED PRN Administration Keep Vein Open Sodium Chloride 2.5 ml 09/27/20 11:37 09/27/20 11:45 Sodium Chloride 0.9% 2.5 Ml Syringe FLUSH 2.5 ml ASDIRECTED PRN Administration Keep Vein Open Discontinued Medications Generic Name Dose Route Start Last Admin Trade Name Freq PRN Reason Stop Dose Admin Adenosine 6 mg 09/27/20 11:38 09/27/20 11:44 Adenosine 6 Mg/2 Ml Sdv IVPUSH 09/27/20 11:39 6 mg NOW ONE Administration Lorazepam 0.5 mg 09/27/20 12:20 09/27/20 12:54 Lorazepam 2 Mg/Ml Sdv IVPUSH 09/27/20 12:21 0.5 mg ONETIME ONE Administration Magnesium Chloride 256 mg 09/27/20 12:54 09/27/20 13:17 Magnesium Chloride 64 Mg Tab.Er PO 09/27/20 12:55 256 mg STAT STA Administration Departure - Departure Time of Disposition: 14:47 Disposition: Home, Self-Care 01 Condition: Good Clinical Impression: Palpitations, Chest pain, SVT (supraventricular tachycardia), Hypomagnesemia - Discharge Information Prescriptions: Magnesium Chloride 256 mg PO BID #80 tablet.dr Instructions: Supraventricular Tachycardia, Adult, [id number], Hypomagnesemia, Nonspecific Chest Pain, Adult, [id number] Referrals: PCP,None [Primary Care Provider] - Forms: ED Department Discharge Additional Instructions: [facility] - cardiology [address] [place] [id number] [facility] - Primary Care [address] [place] [id number] [address] [id number] The following information is given to patients seen in the emergency department who are being discharged to home. This information is to outline your options for follow-up care. We provide all patients seen in our emergency department with a follow-up referral. The need for follow-up, as well as the timing and circumstances, are variable depending upon the specifics of your emergency department visit. If you don't have a primary care physician on staff, we will provide you with a referral. We always advise you to contact your personal physician following an emergency department visit to inform them of the circumstance of the visit and for follow-up with them and/or the need for any referrals to a consulting specialist. The emergency department will also refer you to a specialist when appropriate. This referral assures that you have the opportunity for follow-up care with a specialist. All of these measure are taken in an effort to provide you with optimal care, which includes your follow-up. Under all circumstances we always encourage you to contact your private physician who remains a resource for coordinating your care. When calling for follow-up care, please make the office aware that this follow-up is from your recent emergency room visit. If for any reason you are refused follow-up, please contact the [facility] Emergency Department at and asked to speak to the emergency department charge nurse. Sepsis Event Note (ED) - Focused Exam Vital Signs: Vital Signs Temp Pulse Resp BP Pulse Ox 09/27/20 12:45 124 H 16 116/83 99 09/27/20 12:30 123 H 16 121/80 97 09/27/20 12:15 121 H 16 97 09/27/20 12:00 117 H 16 98 09/27/20 11:45 128 H 17 145/97 H 98 09/27/20 11:29 36.4 C 235 H 18 114/73 99 - My Orders Last 24 Hours: My Active Orders 09/27/20 11:37 EKG Documentation Completion [RC] AM Sodium Chloride 0.9% [Saline Flush] 10 ml FLUSH ASDIRECTED PRN Sodium Chloride 0.9% [Saline Flush] 2.5 ml FLUSH ASDIRECTED PRN Saline Lock Insert [OM.PC] Stat 09/27/20 11:45 Sodium Chloride 0.9% [Normal Saline] 1,000 ml IV ASDIRECTED 09/27/20 11:47 EKG 12 Lead [EKG Documentation Completion] [RC] STAT - Assessment/Plan Last 24 Hours: My Active Orders 09/27/20 11:37 EKG Documentation Completion [RC] AM Sodium Chloride 0.9% [Saline Flush] 10 ml FLUSH ASDIRECTED PRN Sodium Chloride 0.9% [Saline Flush] 2.5 ml FLUSH ASDIRECTED PRN Saline Lock Insert [OM.PC] Stat 09/27/20 11:45 Sodium Chloride 0.9% [Normal Saline] 1,000 ml IV ASDIRECTED 09/27/20 11:47 EKG 12 Lead [EKG Documentation Completion] [RC] STAT
[2020-09-27 12:20] LABS: BLOOD UREA NITROGEN,BUN 17 mg/dL (7.0-18.0); CARBON DIOXIDE,CO2 21.5 mmol/L (21.0-32.0); CHLORIDE,CL 99 mmol/L (98-107); GLUCOSE RANDOM 174 mg/dL (74-106); POTASSIUM,K 3.9 mmol/L (3.5-5.1); SODIUM,NA 139 mmol/L (136-145)
[2020-09-27] MEDS ORDERED: LORazepam 2 MG/ML SDV IVPUSH ONE (12:20)
[2020-09-27] MEDS ORDERED: Magnesium Chloride 64 MG Tab.ER PO STA (12:54)
== END 2020-09-27 14:50 | disposition home or self-care (01) ==
LOC: MW.ED 11:29
DX: I47.1 Supraventricular tachycardia (principal); R07.9 Chest pain, unspecified; R00.2 Palpitations; E83.42 Hypomagnesemia; Z79.899 Other long term (current) drug therapy
CPT/HCPCS: 36415; 80053; 83735; 84484; 84703; 85025; 93005; 96374; 96375; 99285; A9270; J0153; J2060; J7030; 93010; 99283

== ENCOUNTER 2020-10-12 19:27 | Emergency (ER) | payer BC ==
[2020-10-12] MEDS ORDERED: Adenosine 6 MG/2 ML SDV IVPUSH ONE ×2 (19:34)
[2020-10-12] MEDS ORDERED: Adenosine 6 MG/2 ML SDV ONE (19:34)
[2020-10-12] MEDS ORDERED: Sodium Chloride 0.9% 10 ML Syringe FLUSH PRN ×2 (19:35→19:36)
[2020-10-12] MEDS ORDERED: Sodium Chloride 0.9% 2.5 ML Syringe FLUSH PRN ×2 (19:35→19:36)
[2020-10-12] MEDS ORDERED: Sodium Chloride 0.9% 1,000 ML IV ONE (19:36)
[2020-10-12] MEDS ORDERED: Metoprolol Tartrate 50 MG Tab PO ONE (19:43)
--- NOTE | 2020-10-12 19:49 | EDM.PDOC ---
ED HPI GENERAL MEDICAL PROBLEM - General Chief Complaint: Chest Pain Stated Complaint: CHEST PAIN, SHORT OF BREATH Time Seen by Provider: 10/12/20 19:45 Source of Information: Reports: Patient History Limitations: Reports: No Limitations - History of Present Illness INITIAL COMMENTS - FREE TEXT/NARRATIVE: HISTORY AND PHYSICAL: History of present illness: The patient is a 35-year-old female with a history of SVT starting in high school. She reports that she has 4-5 episodes per year. She had never sought medical care for her symptoms. She states that they normally only last for a few seconds to minutes. She is able to relax herself and the symptoms will resolve. She had to seek care in the 2 weeks ago for her rapid heart rate. She is seeking a new primary care with . At present she is not on any medications for the rapid heart rate. She states that she has chest pain and dizziness when that happens rapid heart rate. She does not identify any triggers. Patient denies any fever, chills, headache, change in vision, syncope or near syncope. Denies any back pain or cough. Denies any abdominal pain, nausea, vomiting, diarrhea, constipation or dysuria. Has not noted any blood in urine or stool. Patient has been eating and drinking appropriately. Review of systems: As per history of present illness and below otherwise all systems reviewed and negative. Past medical history: As per history of present illness and as reviewed below otherwise noncontributory. Surgical history: As per history of present illness and as reviewed below otherwise no ncontributory. Social history: See social history for further information Family history: As per history of present illness and as reviewed below otherwise noncontributory. Physical exam: General: Well developed and well nourished. Alert and orientated x 3. Nontoxic in appearance and in no acute distress. Vital signs are stable and have been reviewed by me. Nursing notes were reviewed. HEENT: Atraumatic, normocephalic, pupils equal and reactive bilaterally, negative for conjunctival pallor or scleral icterus, mucous membranes moist, TMs normal bilaterally, throat clear, neck supple, nontender, trachea midline. No drooling or trismus noted. No meningeal signs. No hot potato voice noted. Lungs: Clear to auscultation bilaterally. No wheezes, rales, or rhonchi. Chest nontender. Normal work of breathing, no accessory muscles used. Heart: S1S2, regular rate and rhythm without overt murmur, gallops, or rubs post adenosine. No JVD. No peripheral edema Abdomen: Soft, nondistended, nontender. Normoactive bowel sounds. Negative for masses or costovertebral tenderness. Skin: Intact, warm, dry. No lesions or rashes noted. Hematologic: No petechiae or purpra. Mucosa appropriate color and normal nail bed color and refill. Extremities: Atraumatic, moves all extremities per self without difficulty or deficits, negative for cords or calf pain. Neurovascular unremarkable. Neuro: Awake, alert, oriented. Cranial nerves II through XII unremarkable. Cerebellum unremarkable. Motor and sensory unremarkable throughout. Exam nonfocal. Psychiatric: Mood and affect are appropriate. Normal thought process. Answering questions appropriately. Notes: *This patient was seen and evaluated during the 2019 SARS-CoV-2 novel coronavirus pandemic period. Community viral transmission is ongoing at time of this encounter and the emergency department is operating under pandemic response procedures. Initial presentation of the patient was heart rate in the 220s. An IV was established and Adenosine 12 mg IV was given with a conversion rate of 95 NSR. She states that she no longer has chest pain but she still has mild chest heaviness. Metoprolol tartrate 50mg was given for rate control. Ativan 1mg was given to relieve anxiety. A CBC, CMP, TSH, serial EKGs, and CXR ordered. The patient was informed of her results. She maintained a normal sinus rhythm with a rate of 102. Patient educated on the need to follow-up due to her increased TSH and low hemoglobin. I have talked with the patient about today's findings, in addition to providing specific details for plan of care. Reassessment at the time of disposition demonstrates that the patient is in no acute distress. The patient is stable for discharge, counseling was provided and we discussed in great detail signs and symptoms that would prompt them to return to the Emergency Department. Medication, follow up and supportive care measures were reviewed and discussed. Voices understanding and is agreeable to plan of care. Denies any further questions or concerns at this time. Diagnostics:CBC, CMP, TSH, serial EKGs, and CXR Therapeutics:Adenosine 12 mg IV, Metoprolol tartrate 50mg, Ativan 1mg Prescription:Metoprolol tartrate 50mg BID for two weeks Impression: SVT Plan: 1. You were evaluated today on an emergent basis. Your rapid heart rate was treated with Adenosine 12mg and metoprolol tartrate 50mg. Ativan 1mg was given for your anxiety. You will need to follow up with the label drier for management of your rapid heart rate, and Dr. Harper for your anemia and elevated TSH. I am prescribing Metoprolol 50mg BID to control your heart rate. If you have symptoms of dizziness or chest pain you will need to return to the emergency department. 2. You can alternate Tylenol and ibuprofen as needed for pain and fever management. 3. We encourage you to follow up with your primary care provider and/or recommended specialist in the next few days for re-evaluation and further care/management. 4. If your symptoms should worsen, new symptoms develop or any of the signs and symptoms we discussed should arise please return to the emergency room or call 911 (if needed). Definitive disposition and diagnosis as appropriate pending reevaluation and review of above. - Related Data Allergies Allergy/AdvReac Type Severity Reaction Status Date / Time No Known Allergies Allergy Verified 09/27/20 13:20 Home Meds: Home Meds Ondansetron [Zofran ODT] 4 mg PO Q6H PRN #12 tab.dis 07/15/20 [Rx] Docusate Sodium [Colace] 100 mg PO BID PRN #30 cap 07/20/20 [Rx] Ferrous Sulfate [Iron] 325 mg PO DAILY #30 tablet 07/20/20 [Rx] Folic Acid 1 mg SUBCUT DAILY #30 mdv 07/20/20 [Rx] Pantoprazole Sodium [Protonix] 40 mg PO BID #60 tablet. 07/20/20 [Rx] Thiamine [Vitamin B-1] 100 mg IV DAILY #30 mdv 07/20/20 [Rx] oxyCODONE 5 mg PO Q4H PRN #15 tablet 07/20/20 [Rx] Magnesium Chloride 256 mg PO BID #80 tablet. 09/27/20 [Rx] Metoprolol Tartrate [Lopressor] 50 mg PO BID #28 tablet 10/12/20 [Rx] Past Medical History - Past Health History Medical/Surgical History: Denies Medical/Surgical History HEENT History: Reports: None Cardiovascular History: Reports: Blood Clots/VTE/DVT Other Cardiovascular History: blood clot on the liver Respiratory History: Reports: None Gastrointestinal History: Reports: Pancreatitis Genitourinary History: Reports: None [employer] History: Reports: None Musculoskeletal History: Reports: None Neurological History: Reports: None Psychiatric History: Reports: Addiction, Anxiety, Depression Other Psychiatric History: ETOH Endocrine/Metabolic History: Reports: None Hematologic History: Reports: None Immunologic History: Reports: None Oncologic (Cancer) History: Reports: None Dermatologic History: Reports: None - Infectious Disease History Infectious Disease History: Reports: Chicken Pox - Past Surgical History Head Surgeries/Procedures: Reports: None HEENT Surgical History: Reports: None Cardiovascular Surgical History: Reports: None Respiratory Surgical History: Reports: None GI Surgical History: Reports: EGD Female Surgical History: Reports: None Endocrine Surgical History: Reports: None Neurological Surgical History: Reports: None Musculoskeletal Surgical History: Reports: None Oncologic Surgical History: Reports: None Dermatological Surgical History: Reports: None Social & Family History - Family History Family Medical History: No Pertinent Family History Cardiac: Reports: PR - Caffeine Use Caffeine Use: Reports: None Other Caffeine Use: 2 Diet Cokes a day - Living Situation & Occupation Living situation: Reports: Single Occupation: Unemployed ED ROS GENERAL - Review of Systems Review Of Systems: Comprehensive ROS is negative, except as noted in HPI. ED EXAM, GENERAL - Physical Exam Exam: See Below (See dictation) Course - Vital Signs Last Recorded V/S: Last Vital Signs Temp 97.7 F 10/12/20 19:44 Pulse 101 H 10/12/20 21:20 Resp 18 10/12/20 19:44 BP 149/95 H 10/12/20 21:20 Pulse Ox 98 10/12/20 21:20 - Orders/Labs/Meds Orders: Active Orders 24 hr Category Date Time Status Saline Lock Insert [OM.PC] Stat Oth 10/12/20 19:35 Ordered Saline Lock Insert [OM.PC] Stat Oth 10/12/20 19:36 Ordered Labs: Laboratory Tests 10/12/20 10/12/20 Range/Units 20:16 20:16 WBC 9.54 (4.0-11.0) K/uL RBC 3.68 L (4.30-5.90) M/uL Hgb 10.9 L (12.0-16.0) g/dL Hct 33.0 L (36.0-46.0) % MCV 89.7 (80.0-98.0) fL MCH 29.6 (27.0-32.0) pg MCHC 33.0 (31.0-37.0) g/dL RDW Std Deviation 44.4 (28.0-62.0) fl RDW Coeff of [place] 14 (11.0-15.0) % Plt Count 272 (150-400) K/uL MPV 8.40 (7.40-12.00) fL Neut % (Auto) 45.8 L (48.0-80.0) % Lymph % (Auto) 43.4 H (16.0-40.0) % [place] % (Auto) 9.2 (0.0-15.0) % Eos % (Auto) 1.4 (0.0-7.0) % Baso % (Auto) 0.2 (0.0-1.5) % Neut # (Auto) 4.4 (1.4-5.7) K/uL Lymph # (Auto) 4.1 H (0.6-2.4) K/uL [place] # (Auto) 0.9 H (0.0-0.8) K/uL Eos # (Auto) 0.1 (0.0-0.7) K/uL Baso # (Auto) 0.0 (0.0-0.1) K/uL Nucleated RBC % 0.0 /100WBC Nucleated RBCs # 0 K/uL Sodium 143 (136-145) mmol/L Potassium 3.3 L (3.5-5.1) mmol/L Chloride 107 (98-107) mmol/L Carbon Dioxide 24.6 (21.0-32.0) mmol/L BUN 10 (7.0-18.0) mg/dL Creatinine 0.7 (0.6-1.0) mg/dL Est Cr Clr Drug Dosing 97.79 mL/min Estimated GFR (MDRD) > 60.0 ml/min Glucose 106 (74-106) mg/dL Calcium 7.9 L (8.5-10.1) mg/dL Total Bilirubin 0.1 L (0.2-1.0) mg/dL AST 23 (15-37) IU/L ALT 30 (14-63) IU/L Alkaline Phosphatase 87 (46-116) U/L Total Protein 6.2 L (6.4-8.2) g/dL Albumin 3.0 L (3.4-5.0) g/dL Globulin 3.2 (2.6-4.0) g/dL Albumin/Globulin Ratio 0.9 (0.9-1.6) TSH 3rd Generation 6.71 H (0.36-3.74) uIU/mL Meds: Medications Discontinued Medications Generic Name Dose Route Start Last Admin Trade Name Freq PRN Reason Stop Dose Admin Adenosine 6 mg 10/12/20 19:34 10/12/20 20:18 Adenosine 6 Mg/2 Ml Sdv IVPUSH 10/12/20 19:35 Not Given NOW ONE Adenosine 12 mg 10/12/20 19:34 10/12/20 19:39 Adenosine 6 Mg/2 Ml Sdv IVPUSH 10/12/20 19:35 12 mg NOW ONE Administration Adenosine Confirm 10/12/20 19:34 10/12/20 20:18 Adenosine 6 Mg/2 Ml Sdv Administered 10/12/20 19:35 Not Given Dose 12 mg .ROUTE .STK-MED ONE Sodium Chloride 1,000 mls @ 999 mls/hr 10/12/20 19:36 10/12/20 19:39 Normal Saline IV 10/12/20 20:36 999 mls/hr STAT ONE Administration Lorazepam 1 mg 10/12/20 19:50 10/12/20 20:14 Lorazepam 2 Mg/Ml Sdv IVPUSH 10/12/20 19:51 1 mg ONETIME STA Administration Metoprolol Tartrate 50 mg 10/12/20 19:43 10/12/20 19:51 Metoprolol Tartrate 50 Mg Tab PO 10/12/20 19:44 50 mg ONETIME ONE Administration Sodium Chloride 10 ml 10/12/20 19:35 10/12/20 20:16 Sodium Chloride 0.9% 10 Ml Syringe FLUSH 10 ml ASDIRECTED PRN Administration Keep Vein Open Sodium Chloride 2.5 ml 10/12/20 19:35 10/12/20 20:16 Sodium Chloride 0.9% 2.5 Ml Syringe FLUSH 2.5 ml ASDIRECTED PRN Administration Keep Vein Open Sodium Chloride 10 ml 10/12/20 19:36 10/12/20 20:16 Sodium Chloride 0.9% 10 Ml Syringe FLUSH 10 ml ASDIRECTED PRN Administration Keep Vein Open Sodium Chloride 2.5 ml 10/12/20 19:36 10/12/20 20:16 Sodium Chloride 0.9% 2.5 Ml Syringe FLUSH 2.5 ml ASDIRECTED PRN Administration Keep Vein Open Departure - Departure Time of Disposition: 21:21 Disposition: Home, Self-Care 01 Condition: Good Clinical Impression: Supraventricular tachycardia Prescriptions: Metoprolol Tartrate [Lopressor] 50 mg PO BID #28 tablet Instructions: Supraventricular Tachycardia, Adult, [id number] Referrals: PCP,None [Ordering Only Provider] - Forms: ED Department Discharge Additional Instructions: The following information is given to patients seen in the emergency department who are being discharged to home. This information is to outline your options for follow-up care. We provide all patients seen in our emergency department with a follow-up referral. The need for follow-up, as well as the timing and circumstances, are variable depending upon the specifics of your emergency department visit. If you don't have a primary care physician on staff, we will provide you with a referral. We always advise you to contact your personal physician following an emergency department visit to inform them of the circumstance of the visit and for follow-up with them and/or the need for any referrals to a consulting specialist. The emergency department will also refer you to a specialist when appropriate. This referral assures that you have the opportunity for follow-up care with a specialist. All of these measure are taken in an effort to provide you with optimal care, which includes your follow-up. Under all circumstances we always encourage you to contact your private ysician who remains a resource for coordinating your care. When calling for follow-up care, please make the office aware that this follow-up is from your recent emergency room visit. If for any reason you are refused follow-up, please contact the [facility] Emergency Department at and asked to speak to the emergency department charge nurse. Riuz Mccormack [facility] [address] [place] [id number] [address] Plan: 1. You were evaluated today on an emergent basis. Your rapid heart rate was treated with Adenosine 12mg and metoprolol tartrate 50mg. Ativan 1mg was given for your anxiety. You will need to follow up with the label drier for management of your rapid heart rate, and Dr. Harper for your anemia and elevated TSH. I am prescribing Metoprolol 50mg BID for two weeks to control your heart rate. If you have symptoms of dizziness or chest pain you will need to return to the emergency department. 2. You can alternate Tylenol and ibuprofen as needed for pain and fever management. 3. We encourage you to follow up with your primary care provider and/or recommended specialist in the next few days for re-evaluation and further care/management. 4. If your symptoms should worsen, new symptoms develop or any of the signs and symptoms we discussed should arise please return to the emergency room or call 911 (if needed). Sepsis Event Note (ED) - Focused Exam Vital Signs: Vital Signs Temp Pulse Pulse Resp BP BP Pulse Ox 10/12/20 21:20 101 H 149/95 H 98 10/12/20 20:41 102 H 144/103 H 98 10/12/20 20:11 96 150/113 H 97 10/12/20 19:55 104 H 147/113 H 100 10/12/20 19:51 92 147/113 H 10/12/20 19:44 97.7 F 202 H 18 106/86 98 10/12/20 19:36 Pulse Ox 10/12/20 21:20 10/12/20 20:41 10/12/20 20:11 10/12/20 19:55 10/12/20 19:51 10/12/20 19:44 10/12/20 19:36 97
[2020-10-12] MEDS ORDERED: LORazepam 2 MG/ML SDV IVPUSH STA (19:50)
--- NOTE | 2020-10-12 20:31 | PCM.SN.2 ---
- Free Text/Narrative Note: EKG #1: EKG: As interpreted by ER physician: Luis Angel: Nonspecific ST-T wave abnormalities Normal axis No evidence of ST elevation PA SVT with a heart rate 202 most likely consistent with reentrant tachyarrhythmia EKG #2 status post adenosine 12 mg IV EKG: As interpreted by ER physician: Luis Angel: Nonspecific ST-T wave abnormalities Normal axis No evidence of ST elevation PA Normal sinus rhythm heart rate of 95
--- NOTE | 2020-10-12 20:57 | CR ---
INDICATION: Chest pain. SVT. COMPARISON: None. FINDINGS: A portable AP view of the chest was obtained. The cardiac silhouette and pulmonary vasculature are within normal limits. The lungs are clear bilaterally. There are leads overlying the chest and pad overlying the right chest. IMPRESSION: No evidence of acute pulmonary disease. Dictated by Jm Fishman MD @ Oct 12 2020 8:54PM Signed by Dr. Jm Fishman @ Oct 12 2020 8:56PM
[2020-10-12 21:04] LABS: BLOOD UREA NITROGEN,BUN 10 mg/dL (7.0-18.0); CARBON DIOXIDE,CO2 24.6 mmol/L (21.0-32.0); CHLORIDE,CL 107 mmol/L (98-107); GLUCOSE RANDOM 106 mg/dL (74-106); POTASSIUM,K 3.3 mmol/L (3.5-5.1); SODIUM,NA 143 mmol/L (136-145)
== END 2020-10-12 21:33 | disposition home or self-care (01) ==
LOC: MW.ED 19:27
DX: I47.1 Supraventricular tachycardia (principal); Z79.899 Other long term (current) drug therapy
CPT/HCPCS: 36415; 71045; 80053; 84443; 85025; 93005; 96374; 96375; 99285; A9270; J0153; J2060; J7030; 93010; 99284

== ENCOUNTER 2020-12-08 16:23 | Inpatient (IN) | payer BC ==
--- NOTE | 2020-12-08 16:30 | EDM.PDOC ---
ED HPI GENERAL MEDICAL PROBLEM - General Chief Complaint: Abdominal Pain Stated Complaint: UPPER ABDOMINAL PAIN Time Seen by Provider: 12/08/20 16:29 Source of Information: Reports: Patient History Limitations: Reports: No Limitations - History of Present Illness INITIAL COMMENTS - FREE TEXT/NARRATIVE: HISTORY AND PHYSICAL: History of present illness: Patient is a 35-year-old female presents to the emergency room with complaints of upper abdominal pain, nausea and vomiting. She states she recently was admitted at a nearby hospital (can't remember if it is [facility] or [facility]) for pancreatitis. She was discharged at 11 AM this morning although she continued to have pain. She states the pain has progressively gotten worse and is now here in our emergency room for evaluation. She is requesting pain management. Patient states her pancreatitis is related to alcohol abuse although has not drank in several weeks. Patient denies any fever, chills, headache, change in vision, syncope or near syncope. Denies any chest pain, back pain, shortness of breath or cough. Denies any diarrhea, constipation or dysuria. Has not noted any blood in urine or stool. No concern for , took a test yesterday was negative. Patient has been eating and drinking appropriately. Review of systems: As per history of present illness and below otherwise all systems reviewed and n egative. Past medical history: As per history of present illness and as reviewed below otherwise noncontributory. Surgical history: As per history of present illness and as reviewed below otherwise noncontributory. Social history: See social history for further information Family history: As per history of present illness and as reviewed below otherwise noncontributory. Physical exam: General: Well developed and well nourished 35 year old female. Alert and orientated x 3. Nontoxic in appearance and in no acute distress. Vital signs are stable and have been reviewed by me. Nursing notes were reviewed. HEENT: Atraumatic, normocephalic, pupils equal and reactive bilaterally, negative for conjunctival pallor or scleral icterus, mucous membranes moist, TMs normal bilaterally, throat clear, neck supple, nontender, trachea midline. No drooling or trismus noted. No meningeal signs. No hot potato voice noted. Lungs: Clear to auscultation bilaterally. No wheezes, rales, or rhonchi. Chest nontender. Normal work of breathing, no accessory muscles used. Heart: S1S2, regular rate and rhythm without overt murmur, gallops, or rubs. No JVD. No peripheral edema Abdomen: Soft, nondistended, Generalized tenderness throughout, worse in LUQ/RUQ. Normoactive bowel sounds. Negative for masses or costovertebral tenderness. Skin: Intact, warm, dry. No lesions or rashes noted. Hematologic: No petechiae or purpra. Mucosa appropriate color and normal nail bed color and refill. Extremities: Atraumatic, moves all extremities per self without difficulty or deficits, negative for cords or calf pain. Neurovascular unremarkable. Neuro: Awake, alert, oriented. Cranial nerves II through XII unremarkable. Cerebellum unremarkable. Motor and sensory unremarkable throughout. Exam nonfocal. Psychiatric: Mood and affect are appropriate. Normal thought process. Answering questions appropriately. Notes: *This patient was seen and evaluated during the 2019 SARS-CoV-2 novel coronavirus pandemic period. Community viral transmission is ongoing at time of this encounter and the emergency department is operating under pandemic response procedures. Lipase was 4574. Edematous pancreatic head and body with peripancreatic fat stranding. The findings are most consistent with pancreatitis. A repeat study should be performed to insure complete resolution. Mild diffuse fatty. I have talked with the patient about today's findings, in addition to providing specific details for plan of care. Reassessment at the time of disposition demonstrates that the patient is in no acute distress. She wants to be admitted for pain management. Dr Last, hospitalist, is aware of this patient and agreeable to keeping this patient for further care and management. Diagnostics: CBC, CMP, Lipase, CT abd/pelvis Therapeutics: IV fluids, Zofran, Morphine, Toradol Impression: Pancreatitis Plan: Inpatient admission Definitive disposition and diagnosis as appropriate pending reevaluation and review of above. left upper addomen Pain Score (Numeric/FACES): 9 - Related Data Allergies Allergy/AdvReac Type Severity Reaction Status Date / Time No Known Allergies Allergy Verified 12/08/20 16:49 Home Meds: Home Meds Acetaminophen/oxyCODONE [Percocet 325-5 MG] 1 tab PO BID 12/08/20 [History] Past Medical History - Past Health History Medical/Surgical History: Denies Medical/Surgical History HEENT History: Reports: None Cardiovascular History: Reports: Blood Clots/VTE/DVT Other Cardiovascular History: blood clot on the liver, SVT Respiratory History: Reports: None Gastrointestinal History: Reports: Pancreatitis Genitourinary History: Reports: None NURSE OFFICE History: Reports: None Musculoskeletal History: Reports: None Neurological History: Reports: None Psychiatric History: Reports: Addiction, Anxiety, Depression Other Psychiatric History: ETOH Endocrine/Metabolic History: Reports: None Hematologic History: Reports: None Immunologic History: Reports: None Oncologic (Cancer) History: Reports: None Dermatologic History: Reports: None - Infectious Disease History Infectious Disease History: Reports: Chicken Pox - Past Surgical History Head Surgeries/Procedures: Reports: None HEENT Surgical History: Reports: None Cardiovascular Surgical History: Reports: None Respiratory Surgical History: Reports: None GI Surgical History: Reports: EGD Female Surgical History: Reports: None Endocrine Surgical History: Reports: None Neurological Surgical History: Reports: None Musculoskeletal Surgical History: Reports: None Oncologic Surgical History: Reports: None Dermatological Surgical History: Reports: None Social & Family History - Family History Family Medical History: No Pertinent Family History Cardiac: Reports: [place] - Caffeine Use Caffeine Use: Reports: None Other Caffeine Use: 2 Diet Cokes a day - Living Situation & Occupation Living situation: Reports: Single Occupation: Unemployed ED ROS GENERAL - Review of Systems Review Of Systems: Comprehensive ROS is negative, except as noted in HPI. ED EXAM, GI/ABD - Physical Exam Exam: See Below (See dictation) Course - Vital Signs Last Recorded V/S: Last Vital Signs Temp 96.2 F L 12/08/20 16:50 Pulse 88 12/08/20 16:50 Resp 18 12/08/20 16:50 BP 171/111 H 12/08/20 16:50 Pulse Ox 100 12/08/20 16:50 - Orders/Labs/Meds Orders: Active Orders 24 hr Category Date Time Status Admission Status [Patient Status] [ADT] Stat ADT 12/08/20 18:22 Ordered HCG QUALITATIVE,URINE [URCHEM] Stat Lab 12/08/20 16:39 Ordered UA RFX CHRISTINE AND CULT IF INDIC [URIN] Stat Lab 12/08/20 16:39 Ordered Labs: Laboratory Tests 12/08/20 12/08/20 12/08/20 Range/Units 16:41 16:41 16:41 WBC 9.33 (4.0-11.0) K/uL RBC 4.21 L (4.30-5.90) M/uL Hgb 12.3 (12.0-16.0) g/dL Hct 38.0 (36.0-46.0) % MCV 90.3 (80.0-98.0) fL MCH 29.2 (27.0-32.0) pg MCHC 32.4 (31.0-37.0) g/dL RDW Std Deviation 52.8 (28.0-62.0) fl RDW Coeff of [place] 16 H (11.0-15.0) % Plt Count 378 (150-400) K/uL MPV 8.60 (7.40-12.00) fL Neut % (Auto) 70.3 (48.0-80.0) % Lymph % (Auto) 19.4 (16.0-40.0) % [place] % (Auto) 9.3 (0.0-15.0) % Eos % (Auto) 0.6 (0.0-7.0) % Baso % (Auto) 0.4 (0.0-1.5) % Neut # (Auto) 6.6 H (1.4-5.7) K/uL Lymph # (Auto) 1.8 (0.6-2.4) K/uL [place] # (Auto) 0.9 H (0.0-0.8) K/uL Eos # (Auto) 0.1 (0.0-0.7) K/uL Baso # (Auto) 0.0 (0.0-0.1) K/uL Nucleated RBC % 0.0 /100WBC Nucleated RBCs # 0 K/uL Sodium 136 (136-145) mmol/L Potassium 3.5 (3.5-5.1) mmol/L Chloride 99 (98-107) mmol/L Carbon Dioxide 27.7 (21.0-32.0) mmol/L BUN 13 (7.0-18.0) mg/dL Creatinine 0.7 (0.6-1.0) mg/dL Est Cr Clr Drug Dosing 97.79 mL/min Estimated GFR (MDRD) > 60.0 ml/min Glucose 137 H (74-106) mg/dL Calcium 8.1 L (8.5-10.1) mg/dL Total Bilirubin 1.0 (0.2-1.0) mg/dL AST 50 H (15-37) IU/L ALT 39 (14-63) IU/L Alkaline Phosphatase 119 H (46-116) U/L Total Protein 7.9 (6.4-8.2) g/dL Albumin 3.8 (3.4-5.0) g/dL Globulin 4.1 H (2.6-4.0) g/dL Albumin/Globulin Ratio 0.9 (0.9-1.6) Lipase 4574 H (73-393) U/L Ethyl Alcohol <3 mg/dL Meds: Medications Discontinued Medications Generic Name Dose Route Start Last Admin Trade Name Freq PRN Reason Stop Dose Admin Sodium Chloride 1,000 mls @ 999 mls/hr 12/08/20 16:39 12/08/20 16:46 Normal Saline IV 12/08/20 17:39 999 mls/hr STAT ONE Administration Iopamidol 100 ml 12/08/20 17:44 12/08/20 17:44 Iopamidol 755 Mg/Ml 500 Ml Multipack Bottle IVPUSH 12/08/20 17:45 100 ml ONETIME ONE Administration Ketorolac Tromethamine 30 mg 12/08/20 17:44 12/08/20 17:52 Ketorolac 30 Mg/Ml Sdv IVPUSH 12/08/20 17:45 30 mg ONETIME ONE Administration Morphine Sulfate 4 mg 12/08/20 16:39 12/08/20 16:45 Morphine 4 Mg/Ml Syringe IVPUSH 12/08/20 16:40 4 mg ONETIME ONE Administration Morphine Sulfate 2 mg 12/08/20 17:45 12/08/20 18:01 Morphine 2 Mg/Ml Syringe IVPUSH 12/08/20 17:46 2 mg ONETIME ONE Administration Ondansetron HCl 4 mg 12/08/20 16:39 12/08/20 16:45 Ondansetron 4 Mg/2 Ml Sdv IVPUSH 12/08/20 16:40 4 mg ONETIME ONE Administration Departure - Departure Time of Disposition: 18:26 Disposition: Admitted As Inpatient 67 Clinical Impression: Pancreatitis Qualifiers: Chronicity: acute Pancreatitis type: unspecified pancreatitis type Acute pancreatitis complication: unspecified Qualified Code(s): K85.90 - Acute pancreatitis without necrosis or infection, unspecified - Discharge Information Referrals: Small,Jarrett Gonzalez, MD [Primary Care Provider] - Forms: ED Department Discharge Sepsis Event Note (ED) - Focused Exam Vital Signs: Vital Signs Temp Pulse Resp BP Pulse Ox 12/08/20 16:50 96.2 F L 88 18 171/111 H 100 - My Orders Last 24 Hours: My Active Orders 12/08/20 16:39 HCG QUALITATIVE,URINE [URCHEM] Stat UA RFX CHRISTINE AND CULT IF INDIC [URIN] Stat 12/08/20 18:22 Admission Status [Patient Status] [ADT] Stat - Assessment/Plan Last 24 Hours: My Active Orders 12/08/20 16:39 HCG QUALITATIVE,URINE [URCHEM] Stat UA RFX CHRISTINE AND CULT IF INDIC [URIN] Stat 12/08/20 18:22 Admission Status [Patient Status] [ADT] Stat
[2020-12-08] MEDS ORDERED: Sodium Chloride 0.9% 1,000 ML IV ONE (16:39)
[2020-12-08] MEDS ORDERED: Morphine 4 MG/ML Syringe IVPUSH ONE (16:39)
[2020-12-08] MEDS ORDERED: Ondansetron 4 MG/2 ML SDV IVPUSH ONE (16:39)
[2020-12-08 17:09] LABS: BLOOD UREA NITROGEN,BUN 13 mg/dL (7.0-18.0); CARBON DIOXIDE,CO2 27.7 mmol/L (21.0-32.0); CHLORIDE,CL 99 mmol/L (98-107); GLUCOSE RANDOM 137 mg/dL (74-106); POTASSIUM,K 3.5 mmol/L (3.5-5.1); SODIUM,NA 136 mmol/L (136-145)
[2020-12-08 17:35] LABS: LIPASE 4574 U/L (73-393)
[2020-12-08] MEDS ORDERED: Ketorolac 30 MG/ML SDV IVPUSH ONE (17:44)
[2020-12-08] MEDS ORDERED: Iopamidol 755 MG/ML 500 ML Multipack Bottle IVPUSH ONE (17:44)
[2020-12-08] MEDS ORDERED: Morphine 2 MG/ML SYRINGE IVPUSH ONE (17:45)
--- NOTE | 2020-12-08 18:19 | CT ---
Indication: History pancreatitis. Severe pain. Technique: Multiple contiguous axial images were obtained from the lung bases to the symphysis pubis onto the intravenous administration 100 milliliters Isovue 370. Please note that all CT scans at this facility use dose modulation, iterative reconstruction, and/or weight-based dosing when appropriate to reduce radiation dose to as low as reasonably achievable. Comparison: July 17, 2020. Findings: The heart is normal in size. Bibasilar atelectasis is identified. The stomach is fluid filled. Mild diffuse fatty infiltration of the liver is identified. The spleen, liver, gallbladder, adrenals, and kidneys are normal. The gallbladder is distended. The pancreatic head and body are edematous. Mild fat stranding is identified surrounding the pancreas. These findings are most consistent with pancreatitis. A repeat study should being performed to ensure resolution. In the pelvis, the urinary bladder is normal. The uterus is normal. The right ovary and left ovary are grossly normal. No free fluid or free air is identified within the abdomen or pelvis. No lytic or blastic lesions are identified. The small and large bowel are normal in caliber. Impression: Edematous pancreatic head and body with peripancreatic fat stranding. The findings are most consistent with pancreatitis. A repeat study should be performed to insure complete resolution. Mild diffuse fatty Please note that all CT scans at this facility use dose modulation, iterative reconstruction, and/or weight-based dosing when appropriate to reduce radiation dose to as low as reasonably achievable. Dictated by Yin Toribio MD @ 12/08/2020 6:16:[address] Yin Toribio @ Dec 08 2020 6:16PM
[2020-12-08] MEDS ORDERED: Ondansetron 4 MG/2 ML SDV IVPUSH PRN (19:22)
[2020-12-08] MEDS ORDERED: Lactated Ringers 1,000 ML IV ONE (19:22)
[2020-12-08] MEDS ORDERED: Labetalol 100 MG/20 ML MDV IVPUSH ONE (19:32)
--- NOTE | 2020-12-08 19:38 | PCM.HP.2 ---
H&P History of Present Illness - General Date of Service: 12/08/20 Admit Problem/Dx: Admission Diagnosis/Problem Admission Diagnosis/Problem Pancreatitis Source of Information: Patient History Limitations: Reports: No Limitations - History of Present Illness Initial Comments - Free Text/Narative: Patient is a 35-year-old female with previous known history of alcohol abuse, w ell-known to the hospital for recurrent admissions for pancreatitis. Patient was seen today in the hospital for concerns regarding abdominal pain described as sharp, constant, midepigastric 9 out of 10 on the pain scale. Was given pain medication in the ED which helped bring it to a 7 out of 10. Stated that she had some associated nausea and vomiting earlier today, currently denies any nausea vomiting. No alleviating or aggravating factors. Has had similar bouts before. States that last drink was 3 weeks ago. Otherwise, denied any fever, chills, diarrhea, shortness of breath, yellowing of the skin, pruritus, vomiting blood. ED course: IV fluids, Zofran, morphine, Toradol were given. CBC, CMP, lipase is elevated 4574, CT Abdo pelvis corresponds with pancreatitis. left upper addomen Pain Score (Numeric/FACES): 9 - Related Data Allergies/Adverse Reactions: Allergies Allergy/AdvReac Type Severity Reaction Status Date / Time No Known Allergies Allergy Verified 12/08/20 16:49 Home Medications: Home Meds Acetaminophen/oxyCODONE [Percocet 325-5 MG] 1 tab PO BID 12/08/20 [History] Past Medical History - Past Health History Medical/Surgical History: Denies Medical/Surgical History HEENT History: Reports: None Cardiovascular History: Reports: Blood Clots/VTE/DVT Other Cardiovascular History: blood clot on the liver, SVT Respiratory History: Reports: None Gastrointestinal History: Reports: Pancreatitis Genitourinary History: Reports: None EQUIPMENT SERVICES ASSOCIATE History: Reports: None Musculoskeletal History: Reports: None Neurological History: Reports: None Psychiatric History: Reports: Addiction, Anxiety, Depression Other Psychiatric History: ETOH Endocrine/Metabolic History: Reports: None Hematologic History: Reports: None Immunologic History: Reports: None Oncologic (Cancer) History: Reports: None Dermatologic History: Reports: None - Infectious Disease History Infectious Disease History: Reports: Chicken Pox - Past Surgical History Head Surgeries/Procedures: Reports: None HEENT Surgical History: Reports: None Cardiovascular Surgical History: Reports: None Respiratory Surgical History: Reports: None GI Surgical History: Reports: EGD Female Surgical History: Reports: None Endocrine Surgical History: Reports: None Neurological Surgical History: Reports: None Musculoskeletal Surgical History: Reports: None Oncologic Surgical History: Reports: None Dermatological Surgical History: Reports: None Social & Family History - Family History Family Medical History: No Pertinent Family History Cardiac: Reports: MS - Tobacco Use Tobacco Use Status *Q: Never Tobacco User Second Hand Smoke Exposure: No - Caffeine Use Caffeine Use: Reports: None Other Caffeine Use: 2 Diet Cokes a day - Recreational Drug Use Recreational Drug Use: No - Living Situation & Occupation Living situation: Reports: Single Occupation: Unemployed H&P Review of Systems - Review of Systems: Review Of Systems: See Below General: Reports: Decreased Appetite HEENT: Reports: No Symptoms Pulmonary: Reports: No Symptoms Cardiovascular: Reports: No Symptoms Gastrointestinal: Reports: Abdominal Pain, Decreased Appetite, Nausea, Vomiting. Denies: Diarrhea Genitourinary: Reports: No Symptoms Musculoskeletal: Reports: No Symptoms Skin: Reports: No Symptoms. Denies: Jaundice, Pruritis Psychiatric: Reports: No Symptoms Neurological: Reports: No Symptoms Hematologic/Lymphatic: Reports: No Symptoms Immunologic: Reports: No Symptoms Exam - Exam Exam: See Below - Vital Signs Vital Signs: Last Vital Signs Temp 96.2 F L 12/08/20 16:50 Pulse 81 12/08/20 18:31 Resp 17 12/08/20 18:31 BP 163/110 H 12/08/20 18:31 Pulse Ox 98 12/08/20 18:31 Weight: 163 lb 12.855 oz - Exam Quality Assessment: DVT Prophylaxis General: Alert, Oriented, Cooperative, Mild Distress HEENT: Conjunctiva Clear, EOMI, Mucosa Moist & [place], PERRLA Neck: Supple, Trachea Midline Lungs: Clear to Auscultation, Normal Respiratory Effort Cardiovascular: Regular Rate, Regular Rhythm GI/Abdominal Exam: Normal Bowel Sounds, Soft, No Organomegaly, Tender Extremities: Normal Inspection, Normal Range of Motion, Non-Tender, No Pedal Edema, Normal Capillary Refill Peripheral Pulses: 2+: Carotid (L), Carotid (R), Dorsalis Pedis (L), Dorsalis Pedis (R) Skin: Warm, Dry, Intact Neurological: Cranial Nerves Intact, Reflexes Equal Bilateral Neuro Extensive - Mental Status: Alert, Oriented x3, Normal Mood/Affect, Normal Cognition, Memory Intact Neuro Extensive - Motor, Sensory, Reflexes: CN II-XII Intact, Normal Gait, Normal Reflexes DTR: 2+: Bicep (L), Bicep (R), Achilles (L), Achilles (R) Psychiatric: Alert, Normal Affect, Normal Mood - Patient Data Lab Results Last 24 hrs: Laboratory Results - last 24 hr 12/08/20 12/08/20 12/08/20 Range/Units 16:41 16:41 16:41 WBC 9.33 (4.0-11.0) K/uL RBC 4.21 L (4.30-5.90) M/uL Hgb 12.3 (12.0-16.0) g/dL Hct 38.0 (36.0-46.0) % MCV 90.3 (80.0-98.0) fL MCH 29.2 (27.0-32.0) pg MCHC 32.4 (31.0-37.0) g/dL RDW Std Deviation 52.8 (28.0-62.0) fl RDW Coeff of [place] 16 H (11.0-15.0) % Plt Count 378 (150-400) K/uL MPV 8.60 (7.40-12.00) fL Neut % (Auto) 70.3 (48.0-80.0) % Lymph % (Auto) 19.4 (16.0-40.0) % [place] % (Auto) 9.3 (0.0-15.0) % Eos % (Auto) 0.6 (0.0-7.0) % Baso % (Auto) 0.4 (0.0-1.5) % Neut # (Auto) 6.6 H (1.4-5.7) K/uL Lymph # (Auto) 1.8 (0.6-2.4) K/uL [place] # (Auto) 0.9 H (0.0-0.8) K/uL Eos # (Auto) 0.1 (0.0-0.7) K/uL Baso # (Auto) 0.0 (0.0-0.1) K/uL Nucleated RBC % 0.0 /100WBC Nucleated RBCs # 0 K/uL Sodium 136 (136-145) mmol/L Potassium 3.5 (3.5-5.1) mmol/L Chloride 99 (98-107) mmol/L Carbon Dioxide 27.7 (21.0-32.0) mmol/L BUN 13 (7.0-18.0) mg/dL Creatinine 0.7 (0.6-1.0) mg/dL Est Cr Clr Drug Dosing 97.79 mL/min Estimated GFR (MDRD) > 60.0 ml/min Glucose 137 H (74-106) mg/dL Calcium 8.1 L (8.5-10.1) mg/dL Total Bilirubin 1.0 (0.2-1.0) mg/dL AST 50 H (15-37) IU/L ALT 39 (14-63) IU/L Alkaline Phosphatase 119 H (46-116) U/L Total Protein 7.9 (6.4-8.2) g/dL Albumin 3.8 (3.4-5.0) g/dL Globulin 4.1 H (2.6-4.0) g/dL Albumin/Globulin Ratio 0.9 (0.9-1.6) Lipase 4574 H (73-393) U/L Ethyl Alcohol <3 mg/dL SARS-CoV-2 RNA (DENISSE) (NEGATIVE) 12/08/20 Range/Units 18:24 WBC (4.0-11.0) K/uL RBC (4.30-5.90) M/uL Hgb (12.0-16.0) g/dL Hct (36.0-46.0) % MCV (80.0-98.0) fL MCH (27.0-32.0) pg MCHC (31.0-37.0) g/dL RDW Std Deviation (28.0-62.0) fl RDW Coeff of [place] (11.0-15.0) % Plt Count (150-400) K/uL MPV (7.40-12.00) fL Neut % (Auto) (48.0-80.0) % Lymph % (Auto) (16.0-40.0) % [place] % (Auto) (0.0-15.0) % Eos % (Auto) (0.0-7.0) % Baso % (Auto) (0.0-1.5) % Neut # (Auto) (1.4-5.7) K/uL Lymph # (Auto) (0.6-2.4) K/uL [place] # (Auto) (0.0-0.8) K/uL Eos # (Auto) (0.0-0.7) K/uL Baso # (Auto) (0.0-0.1) K/uL Nucleated RBC % /100WBC Nucleated RBCs # K/uL Sodium (136-145) mmol/L Potassium (3.5-5.1) mmol/L Chloride (98-107) mmol/L Carbon Dioxide (21.0-32.0) mmol/L BUN (7.0-18.0) mg/dL Creatinine (0.6-1.0) mg/dL Est Cr Clr Drug Dosing mL/min Estimated GFR (MDRD) ml/min Glucose (74-106) mg/dL Calcium (8.5-10.1) mg/dL Total Bilirubin (0.2-1.0) mg/dL AST (15-37) IU/L ALT (14-63) IU/L Alkaline Phosphatase (46-116) U/L Total Protein (6.4-8.2) g/dL Albumin (3.4-5.0) g/dL Globulin (2.6-4.0) g/dL Albumin/Globulin Ratio (0.9-1.6) Lipase (73-393) U/L Ethyl Alcohol mg/dL SARS-CoV-2 RNA (DENISSE) NEGATIVE (NEGATIVE) Result Diagrams: 12/08/20 16:41 12/08/20 16:41 Sepsis Event Note - Evaluation Sepsis Screening Result: No Definite Risk - Focused Exam Vital Signs: Vital Signs Temp Pulse Resp BP Pulse Ox 12/08/20 18:31 81 17 163/110 H 98 12/08/20 16:50 96.2 F L 88 18 171/111 H 100 - Problem List (1) Abdominal pain SNOMED Code(s): 36812221 ICD Code: R10.9 - UNSPECIFIED ABDOMINAL PAIN Status: Acute Current Visit: No Qualifiers: Abdominal location: epigastric Qualified Code(s): R10.13 - Epigastric pain (2) Pancreatitis SNOMED Code(s): 62324526 ICD Code: K85.90 - ACUTE PANCREATITIS WITHOUT NECROSIS OR INFECTION, UNSP Status: Acute Current Visit: No (3) Alcohol abuse SNOMED Code(s): 90286327 ICD Code: F10.10 - ALCOHOL ABUSE, UNCOMPLICATED Status: Chronic Current Visit: No (4) Recurrent pancreatitis SNOMED Code(s): 828505391 ICD Code: K86.1 - OTHER CHRONIC PANCREATITIS Status: Acute Current Visit: No Problem List Initiated/Reviewed/Updated: Yes Orders Last 24hrs: Active Orders 24 hr Category Date Time Status Admission Status [Patient Status] [ADT] Stat ADT 12/08/20 18:22 Active Antiembolic Devices [RC] PER UNIT ROUTINE Care 12/08/20 19:25 Ordered Oxygen Therapy [RC] PRN Care 12/08/20 19:22 Ordered Up ad [place] [RC] ASDIRECTED Care 12/08/20 19:22 Ordered VTE/DVT Education [RC] PER UNIT ROUTINE Care 12/08/20 19:22 Ordered Vital Signs [RC] Q4H Care 12/08/20 19:22 Ordered Nothing Per Oral Diet [DIET] Diet 12/09/20 Breakfast Ordered Abdomen Ltd [US] Stat Exams 12/08/20 19:21 Ordered CBC WITH AUTO DIFF [HEME] AM Lab 12/09/20 05:11 Ordered CBC WITH AUTO DIFF [HEME] AM Lab 12/10/20 05:11 Ordered CBC WITH AUTO DIFF [HEME] AM Lab 12/11/20 05:11 Ordered CBC WITH AUTO DIFF [HEME] AM Lab 12/12/20 05:11 Ordered COMPREHENSIVE METABOLIC PN,CMP [CHEM] AM Lab 12/09/20 05:11 Ordered COMPREHENSIVE METABOLIC PN,CMP [CHEM] AM Lab 12/10/20 05:11 Ordered COMPREHENSIVE METABOLIC PN,CMP [CHEM] AM Lab 12/11/20 05:11 Ordered COMPREHENSIVE METABOLIC PN,CMP [CHEM] AM Lab 12/12/20 05:11 Ordered HCG QUALITATIVE,URINE [URCHEM] Stat Lab 12/08/20 16:39 Ordered LIPASE [CHEM] AM Lab 12/09/20 05:11 Ordered UA RFX CHRISTINE AND CULT IF INDIC [URIN] Stat Lab 12/08/20 16:39 Ordered Folic Acid Med 12/08/20 19:30 Ordered 1 mg IV DAILY HYDROmorphone [Dilaudid] Med 12/08/20 19:22 Ordered 1 mg IVPUSH Q2H PRN Labetalol [Normodyne] Med 12/08/20 19:32 Once 20 mg IVPUSH ONETIME ONE Lactated Ringers [Ringers, Lactated] 1,000 ml Med 12/08/20 19:30 Ordered IV ASDIRECTED Lactated Ringers [Ringers, Lactated] 1,000 ml Med 12/08/20 19:22 Ordered IV BOLUS Ondansetron [Zofran] Med 12/08/20 19:22 Ordered 4 mg IVPUSH Q4H PRN Pantoprazole [ProTONIX IV] 40 mg Med 12/08/20 19:30 Ordered Sodium Chloride 0.9% [Normal Saline] 10 ml IV Q24H Thiamine [Vitamin B-1] 100 mg Med 12/08/20 19:45 Ordered Sodium Chloride 0.9% [Normal Saline] 100 ml IV DAILY Sequential Compression Device [OM.PC] Per Unit Routine Oth 12/08/20 19:23 Ordered Resuscitation Status Routine Resus Stat 12/08/20 19:22 Ordered Medication Orders Folic Acid (Folic Acid 50 Mg/10 Ml Mdv) 1 mg IV DAILY CARLITOS Hydromorphone HCl (Hydromorphone 2 Mg/Ml Syringe) 1 mg IVPUSH Q2H PRN PRN Reason: Pain (severe 7-10) Lactated Ringer's (Ringers, Lactated) 1,000 mls @ 200 mls/hr IV ASDIRECTED CARLITOS Lactated Ringer's (Ringers, Lactated) 1,000 mls @ 999 mls/hr IV BOLUS ONE Stop: 12/08/20 20:22 Pantoprazole Sodium 40 mg/ (Sodium Chloride) 10 mls @ 300 mls/hr IV Q24H CARLITOS Thiamine HCl 100 mg/ Sodium (Chloride) 101 mls @ 202 mls/hr IV DAILY CARLITOS Labetalol HCl (Labetalol 100 Mg/20 Ml Mdv) 20 mg IVPUSH ONETIME ONE; Protocol Stop: 12/08/20 19:33 Ondansetron HCl (Ondansetron 4 Mg/2 Ml Sdv) 4 mg IVPUSH Q4H PRN PRN Reason: Abdominal Pain Assessment/Plan Comment:: 35-year-old female admitted for recurrent acute on chronic pancreatitis: 1. Acute on chronic alcoholic pancreatitis: Pain 9 out of 10, n.p.o. except for ice chips, give additional 1 L bolus, patie nt previously received 1 L in the ED, will give maintenance fluids at a rate of [address] Abdo indicated pancreatitis, incidental finding distended gallbladder therefore get a stat abdominal ultrasound. Repeat lipase in the a.m. Dilaudid 1 mg IV every 2 hours for pain, will likely space out to 4 hours tomorrow Zofran IV for nausea as needed. 2. Alcohol abuse disorder: Thiamine and folic acid supplementation Patient claims last drink was 3 weeks ago, will put on CIWA protocol, if above 9 we will consider giving Ativan for agitation/anxiety. At risk for varices, as noted on previous CT, no active varices, seizure prophylaxis below. 3. Hypertension: One-time IV labetalol 20 4. GI prophylaxis: Previously noted to have varices on CT, Protonix 40 IV daily, patient asymptomatic, not currently with an active bleed, monitor hemoglobin CBC on a.m. labs. SCDs CODE STATUS: Full code Dispo: 2 to 3 days
[2020-12-08] MEDS: HYDROmorphone 2 MG/ML Syringe IVPUSH PRN ×2 (21:32→23:34)
[2020-12-08] MEDS: Pantoprazole 40 MG in Sodium Chloride 0.9% 10 ML IV SCH (21:38)
[2020-12-08] MEDS: Folic Acid 50 MG/10 ML MDV IV SCH (21:40)
--- NOTE | 2020-12-08 21:41 | US ---
INDICATION: Distended gallbladder. Pancreatitis. Follow-up. TECHNIQUE: Right upper quadrant ultrasound. COMPARISON: Correlation is made with a CT of the abdomen and pelvis from the same date. FINDINGS: The gallbladder is slightly distended measuring up to 8.1 cm in length. This may be due to a fasting state. The gallbladder wall measures 1.9 mm. No gallstones or sludge. The image archivist work states a positive sonographic Avalos`s sign. Clinical and laboratory correlation is strongly recommended given the lack of any ultrasound findings to indicate acute cholecystitis. No biliary ductal dilatation. Normal common bile duct of 3.6 mm. No pericholecystic fluid. Echogenic liver likely related to fatty infiltration. Hepatopetal flow was identified in the main portal vein. No hydronephrosis of the right kidney. The pancreas is not well seen. IMPRESSION: Mildly distended gallbladder potentially related to the fasting state. The ultrasonography worksheet suggests a positive sonographic Avalos`s sign. Clinical and laboratory correlation are recommended given the lack of stones, biliary dilatation, and no gallbladder wall thickening. Dictated by Jens Patel MD @ 12/08/2020 9:40:[address] Jens Patel @ Dec 08 2020 9:40PM
[2020-12-08] MEDS: Thiamine 100 MG in Sodium Chloride 0.9% 100 ML IV SCH (23:20)
[2020-12-08] MEDS: Lactated Ringers 1,000 ML IV SCH (23:21)
[2020-12-09] MEDS: HYDROmorphone 2 MG/ML Syringe IVPUSH PRN ×4 (01:40→09:00)
[2020-12-09] MEDS: Lactated Ringers 1,000 ML IV SCH ×3 (04:10→18:36)
[2020-12-09 06:24] LABS: BLOOD UREA NITROGEN,BUN 5 mg/dL (7.0-18.0); CARBON DIOXIDE,CO2 28.5 mmol/L (21.0-32.0); CHLORIDE,CL 104 mmol/L (98-107); GLUCOSE RANDOM 115 mg/dL (74-106); LIPASE 616 U/L (73-393); POTASSIUM,K 3.4 mmol/L (3.5-5.1); SODIUM,NA 139 mmol/L (136-145)
[2020-12-09] MEDS: Folic Acid 50 MG/10 ML MDV IV SCH (09:01)
[2020-12-09] MEDS ORDERED: Magnesium Sulfate 2 GM in Sodium Chloride 0.9% with KCl 1,000 ML IV ONE (10:15)
[2020-12-09] MEDS: Thiamine 200 MG/2 ML MDV IVPUSH SCH (10:20)
[2020-12-09] MEDS ORDERED: SODIUM CHLORIDE 0.9% IV ONE (10:47)
[2020-12-09] MEDS ORDERED: POTASSIUM CHLORIDE IV ONE (10:47)
[2020-12-09] MEDS ORDERED: MAGNESIUM SULFATE IV ONE (10:47)
[2020-12-09] MEDS: HYDROmorphone 1 MG/ML Syringe IVPUSH PRN ×4 (12:07→21:16)
[2020-12-09] MEDS: Thiamine 100 MG in Sodium Chloride 0.9% 100 ML IV SCH (13:32)
--- NOTE | 2020-12-09 16:12 | PCM.PN ---
- General Info Date of Service: 12/09/20 Admission Dx/Problem (Free Text): Admission Diagnosis/Problem Admission Diagnosis/Problem Pancreatitis Subjective Update: Patient is a 35-year-old female with a past medical history of recurrent pancreatitis secondary to alcohol abuse. Was admitted for pancreatitis, no overnight events except for had elevated blood pressure 180/98 and was given 20 labetalol IV push. This morning patient remains n.p.o., states that she is much improved, pain was graded 5 out of 10 on the pain scale, denies any nausea, vomiting, fever, chills. Functional Status: Reports: Pain Controlled, Ambulating, Urinating. Denies: Tolerating Diet - Review of Systems General: Reports: No Symptoms HEENT: Reports: No Symptoms Pulmonary: Reports: No Symptoms Cardiovascular: Reports: No Symptoms Gastrointestinal: Reports: No Symptoms Genitourinary: Reports: No Symptoms Musculoskeletal: Reports: No Symptoms Skin: Reports: No Symptoms Neurological: Reports: No Symptoms Psychiatric: Reports: No Symptoms - Patient Data Vitals - Most Recent: Last Vital Signs Temp 97.0 F 12/09/20 12:00 Pulse 76 12/09/20 12:00 Resp 16 12/09/20 12:00 BP 162/98 H 12/09/20 12:00 Pulse Ox 100 12/09/20 12:00 Weight - Most Recent: 161 lb 3.2 oz I&O - Last 24 Hours: Intake & Output 12/09/20 12/09/20 12/09/20 06:59 14:59 22:59 Output Total 1000 Balance -1000 Lab Results Last 24 Hours: Laboratory Results - last 24 hr 12/08/20 12/08/20 12/08/20 Range/Units 16:41 16:41 16:41 WBC 9.33 (4.0-11.0) K/uL RBC 4.21 L (4.30-5.90) M/uL Hgb 12.3 (12.0-16.0) g/dL Hct 38.0 (36.0-46.0) % MCV 90.3 (80.0-98.0) fL MCH 29.2 (27.0-32.0) pg MCHC 32.4 (31.0-37.0) g/dL RDW Std Deviation 52.8 (28.0-62.0) fl RDW Coeff of [place] 16 H (11.0-15.0) % Plt Count 378 (150-400) K/uL MPV 8.60 (7.40-12.00) fL Neut % (Auto) 70.3 (48.0-80.0) % Lymph % (Auto) 19.4 (16.0-40.0) % [place] % (Auto) 9.3 (0.0-15.0) % Eos % (Auto) 0.6 (0.0-7.0) % Baso % (Auto) 0.4 (0.0-1.5) % Neut # (Auto) 6.6 H (1.4-5.7) K/uL Lymph # (Auto) 1.8 (0.6-2.4) K/uL [place] # (Auto) 0.9 H (0.0-0.8) K/uL Eos # (Auto) 0.1 (0.0-0.7) K/uL Baso # (Auto) 0.0 (0.0-0.1) K/uL Nucleated RBC % 0.0 /100WBC Nucleated RBCs # 0 K/uL Sodium 136 (136-145) mmol/L Potassium 3.5 (3.5-5.1) mmol/L Chloride 99 (98-107) mmol/L Carbon Dioxide 27.7 (21.0-32.0) mmol/L BUN 13 (7.0-18.0) mg/dL Creatinine 0.7 (0.6-1.0) mg/dL Est Cr Clr Drug Dosing 97.79 mL/min Estimated GFR (MDRD) > 60.0 ml/min Glucose 137 H (74-106) mg/dL Calcium 8.1 L (8.5-10.1) mg/dL Phosphorus (2.6-4.7) mg/dL Magnesium (1.8-2.4) mg/dL Total Bilirubin 1.0 (0.2-1.0) mg/dL AST 50 H (15-37) IU/L ALT 39 (14-63) IU/L Alkaline Phosphatase 119 H (46-116) U/L Total Protein 7.9 (6.4-8.2) g/dL Albumin 3.8 (3.4-5.0) g/dL Globulin 4.1 H (2.6-4.0) g/dL Albumin/Globulin Ratio 0.9 (0.9-1.6) Lipase 4574 H (73-393) U/L Urine Color Urine Appearance Urine pH (5.0-8.0) Ur Specific [place] (1.001-1.035) Urine Protein (NEGATIVE) mg/dL Urine Glucose (UA) (NEGATIVE) mg/dL Urine Ketones (NEGATIVE) mg/dL Urine Occult Blood (NEGATIVE) Urine Nitrite (NEGATIVE) Urine Bilirubin (NEGATIVE) Urine Urobilinogen (<2.0) EU/dL Ur Leukocyte Esterase (NEGATIVE) Urine HCG, Qual (NEGATIVE) Ethyl Alcohol <3 mg/dL SARS-CoV-2 RNA (DENISSE) (NEGATIVE) 12/08/20 12/09/20 12/09/20 Range/Units 18:24 01:46 01:46 WBC (4.0-11.0) K/uL RBC (4.30-5.90) M/uL Hgb (12.0-16.0) g/dL Hct (36.0-46.0) % MCV (80.0-98.0) fL MCH (27.0-32.0) pg MCHC (31.0-37.0) g/dL RDW Std Deviation (28.0-62.0) fl RDW Coeff of [place] (11.0-15.0) % Plt Count (150-400) K/uL MPV (7.40-12.00) fL Neut % (Auto) (48.0-80.0) % Lymph % (Auto) (16.0-40.0) % [place] % (Auto) (0.0-15.0) % Eos % (Auto) (0.0-7.0) % Baso % (Auto) (0.0-1.5) % Neut # (Auto) (1.4-5.7) K/uL Lymph # (Auto) (0.6-2.4) K/uL [place] # (Auto) (0.0-0.8) K/uL Eos # (Auto) (0.0-0.7) K/uL Baso # (Auto) (0.0-0.1) K/uL Nucleated RBC % /100WBC Nucleated RBCs # K/uL Sodium (136-145) mmol/L Potassium (3.5-5.1) mmol/L Chloride (98-107) mmol/L Carbon Dioxide (21.0-32.0) mmol/L BUN (7.0-18.0) mg/dL Creatinine (0.6-1.0) mg/dL Est Cr Clr Drug Dosing mL/min Estimated GFR (MDRD) ml/min Glucose (74-106) mg/dL Calcium (8.5-10.1) mg/dL Phosphorus (2.6-4.7) mg/dL Magnesium (1.8-2.4) mg/dL Total Bilirubin (0.2-1.0) mg/dL AST (15-37) IU/L ALT (14-63) IU/L Alkaline Phosphatase (46-116) U/L Total Protein (6.4-8.2) g/dL Albumin (3.4-5.0) g/dL Globulin (2.6-4.0) g/dL Albumin/Globulin Ratio (0.9-1.6) Lipase (73-393) U/L Urine Color YELLOW Urine Appearance CLEAR Urine pH 7.0 (5.0-8.0) Ur Specific [place] 1.015 (1.001-1.035) Urine Protein NEGATIVE (NEGATIVE) mg/dL Urine Glucose (UA) NEGATIVE (NEGATIVE) mg/dL Urine Ketones TRACE H (NEGATIVE) mg/dL Urine Occult Blood NEGATIVE (NEGATIVE) Urine Nitrite NEGATIVE (NEGATIVE) Urine Bilirubin NEGATIVE (NEGATIVE) Urine Urobilinogen 0.2 (<2.0) EU/dL Ur Leukocyte Esterase NEGATIVE (NEGATIVE) Urine HCG, Qual NEGATIVE (NEGATIVE) Ethyl Alcohol mg/dL SARS-CoV-2 RNA (DENISSE) NEGATIVE (NEGATIVE) 12/09/20 12/09/20 12/09/20 Range/Units 05:35 05:35 05:35 WBC 5.84 (4.0-11.0) K/uL RBC 3.42 L (4.30-5.90) M/uL Hgb 9.8 L (12.0-16.0) g/dL Hct 31.2 L (36.0-46.0) % MCV 91.2 (80.0-98.0) fL MCH 28.7 (27.0-32.0) pg MCHC 31.4 (31.0-37.0) g/dL RDW Std Deviation 53.1 (28.0-62.0) fl RDW Coeff of [place] 16 H (11.0-15.0) % Plt Count 256 (150-400) K/uL MPV 8.60 (7.40-12.00) fL Neut % (Auto) 48.5 (48.0-80.0) % Lymph % (Auto) 36.8 (16.0-40.0) % [place] % (Auto) 12.2 (0.0-15.0) % Eos % (Auto) 2.2 (0.0-7.0) % Baso % (Auto) 0.3 (0.0-1.5) % Neut # (Auto) 2.8 (1.4-5.7) K/uL Lymph # (Auto) 2.2 (0.6-2.4) K/uL [place] # (Auto) 0.7 (0.0-0.8) K/uL Eos # (Auto) 0.1 (0.0-0.7) K/uL Baso # (Auto) 0.0 (0.0-0.1) K/uL Nucleated RBC % 0.0 /100WBC Nucleated RBCs # 0 K/uL Sodium 139 (136-145) mmol/L Potassium 3.4 L (3.5-5.1) mmol/L Chloride 104 (98-107) mmol/L Carbon Dioxide 28.5 (21.0-32.0) mmol/L BUN 5 L (7.0-18.0) mg/dL Creatinine 0.5 L (0.6-1.0) mg/dL Est Cr Clr Drug Dosing 136.90 mL/min Estimated GFR (MDRD) > 60.0 ml/min Glucose 115 H (74-106) mg/dL Calcium 7.3 L (8.5-10.1) mg/dL Phosphorus 2.0 L (2.6-4.7) mg/dL Magnesium (1.8-2.4) mg/dL Total Bilirubin 0.5 (0.2-1.0) mg/dL AST 27 (15-37) IU/L ALT 30 (14-63) IU/L Alkaline Phosphatase 80 (46-116) U/L Total Protein 5.7 L (6.4-8.2) g/dL Albumin 2.7 L (3.4-5.0) g/dL Globulin 3.0 (2.6-4.0) g/dL Albumin/Globulin Ratio 0.9 (0.9-1.6) Lipase 616 H (73-393) U/L Urine Color Urine Appearance Urine pH (5.0-8.0) Ur Specific [place] (1.001-1.035) Urine Protein (NEGATIVE) mg/dL Urine Glucose (UA) (NEGATIVE) mg/dL Urine Ketones (NEGATIVE) mg/dL Urine Occult Blood (NEGATIVE) Urine Nitrite (NEGATIVE) Urine Bilirubin (NEGATIVE) Urine Urobilinogen (<2.0) EU/dL Ur Leukocyte Esterase (NEGATIVE) Urine HCG, Qual (NEGATIVE) Ethyl Alcohol mg/dL SARS-CoV-2 RNA (DENISSE) (NEGATIVE) 12/09/20 Range/Units 05:35 WBC (4.0-11.0) K/uL RBC (4.30-5.90) M/uL Hgb (12.0-16.0) g/dL Hct (36.0-46.0) % MCV (80.0-98.0) fL MCH (27.0-32.0) pg MCHC (31.0-37.0) g/dL RDW Std Deviation (28.0-62.0) fl RDW Coeff of [place] (11.0-15.0) % Plt Count (150-400) K/uL MPV (7.40-12.00) fL Neut % (Auto) (48.0-80.0) % Lymph % (Auto) (16.0-40.0) % [place] % (Auto) (0.0-15.0) % Eos % (Auto) (0.0-7.0) % Baso % (Auto) (0.0-1.5) % Neut # (Auto) (1.4-5.7) K/uL Lymph # (Auto) (0.6-2.4) K/uL [place] # (Auto) (0.0-0.8) K/uL Eos # (Auto) (0.0-0.7) K/uL Baso # (Auto) (0.0-0.1) K/uL Nucleated RBC % /100WBC Nucleated RBCs # K/uL Sodium (136-145) mmol/L Potassium (3.5-5.1) mmol/L Chloride (98-107) mmol/L Carbon Dioxide (21.0-32.0) mmol/L BUN (7.0-18.0) mg/dL Creatinine (0.6-1.0) mg/dL Est Cr Clr Drug Dosing mL/min Estimated GFR (MDRD) ml/min Glucose (74-106) mg/dL Calcium (8.5-10.1) mg/dL Phosphorus (2.6-4.7) mg/dL Magnesium 1.7 L (1.8-2.4) mg/dL Total Bilirubin (0.2-1.0) mg/dL AST (15-37) IU/L ALT (14-63) IU/L Alkaline Phosphatase (46-116) U/L Total Protein (6.4-8.2) g/dL Albumin (3.4-5.0) g/dL Globulin (2.6-4.0) g/dL Albumin/Globulin Ratio (0.9-1.6) Lipase (73-393) U/L Urine Color Urine Appearance Urine pH (5.0-8.0) Ur Specific [place] (1.001-1.035) Urine Protein (NEGATIVE) mg/dL Urine Glucose (UA) (NEGATIVE) mg/dL Urine Ketones (NEGATIVE) mg/dL Urine Occult Blood (NEGATIVE) Urine Nitrite (NEGATIVE) Urine Bilirubin (NEGATIVE) Urine Urobilinogen (<2.0) EU/dL Ur Leukocyte Esterase (NEGATIVE) Urine HCG, Qual (NEGATIVE) Ethyl Alcohol mg/dL SARS-CoV-2 RNA (DENISSE) (NEGATIVE) Med Orders - Current: Current Medications Folic Acid (Folic Acid 50 Mg/10 Ml Mdv) 1 mg IV DAILY [facility] Last Admin: 12/09/20 09:01 Dose: 1 mg Documented by: Hydromorphone HCl (Hydromorphone 1 Mg/Ml Syringe) 1 mg IVPUSH Q3H PRN PRN Reason: Pain (severe 7-10) Last Admin: 12/09/20 15:12 Dose: 1 mg Documented by: Lactated Ringer's (Ringers, Lactated) 1,000 mls @ 200 mls/hr IV ASDIRECTED [facility]LY [facility] Last Admin: 12/09/20 09:06 Dose: 200 mls/hr Documented by: Pantoprazole Sodium 40 mg/ (Sodium Chloride) 10 mls @ 300 mls/hr IV Q24H [facility] Last Admin: 12/08/20 21:38 Dose: 300 mls/hr Documented by: Magnesium Sulfate 2 gm/Potassium Chloride 40 meq/Sodium Chloride 1,024 mls @ 152.988 mls/hr IV ONETIME ONE Stop: 12/09/20 16:56 Last Admin: 12/09/20 12:05 Dose: 152.988 mls/hr Documented by: Ondansetron HCl (Ondansetron 4 Mg/2 Ml Sdv) 4 mg IVPUSH Q4H PRN PRN Reason: Abdominal Pain Thiamine HCl (Thiamine 200 Mg/2 Ml Mdv) 100 mg IVPUSH DAILY [facility] Last Admin: 12/09/20 10:20 Dose: 100 mg Documented by: Discontinued Medications Hydromorphone HCl (Hydromorphone 2 Mg/Ml Syringe) 1 mg IVPUSH Q2H PRN PRN Reason: Pain (severe 7-10) Last Admin: 12/09/20 09:00 Dose: 1 mg Documented by: Sodium Chloride (Normal Saline) 1,000 mls @ 999 mls/hr IV STAT ONE Stop: 12/08/20 17:39 Last Admin: 12/08/20 16:46 Dose: 999 mls/hr Documented by: Lactated Ringer's (Ringers, Lactated) 1,000 mls @ 999 mls/hr IV BOLUS ONE Stop: 12/08/20 20:22 Last Admin: 12/08/20 21:32 Dose: 999 mls/hr Documented by: Thiamine HCl 100 mg/ Sodium (Chloride) 101 mls @ 202 mls/hr IV DAILY [facility] Last Admin: 12/09/20 13:32 Dose: Not Given Documented by: Magnesium Sulfate 2 gm/Potassium Chloride/Sodium Chloride 1,004 mls @ 150 mls/hr IV ONETIME ONE Stop: 12/09/20 16:56 Last Admin: 12/09/20 13:33 Dose: Not Given Documented by: Iopamidol (Iopamidol 755 Mg/Ml 500 Ml Multipack Bottle) 100 ml IVPUSH ONETIME ONE Stop: 12/08/20 17:45 Last Admin: 12/08/20 17:44 Dose: 100 ml Documented by: Ketorolac Tromethamine (Ketorolac 30 Mg/Ml Sdv) 30 mg IVPUSH ONETIME ONE Stop: 12/08/20 17:45 Last Admin: 12/08/20 17:52 Dose: 30 mg Documented by: Labetalol HCl (Labetalol 100 Mg/20 Ml Mdv) 20 mg IVPUSH ONETIME ONE; Protocol Stop: 12/08/20 19:33 Last Admin: 12/08/20 23:29 Dose: 20 mg Documented by: Morphine Sulfate (Morphine 4 Mg/Ml Syringe) 4 mg IVPUSH ONETIME ONE Stop: 12/08/20 16:40 Last Admin: 12/08/20 16:45 Dose: 4 mg Documented by: Morphine Sulfate (Morphine 2 Mg/Ml Syringe) 2 mg IVPUSH ONETIME ONE Stop: 12/08/20 17:46 Last Admin: 12/08/20 18:01 Dose: 2 mg Documented by: Ondansetron HCl (Ondansetron 4 Mg/2 Ml Sdv) 4 mg IVPUSH ONETIME ONE Stop: 12/08/20 16:40 Last Admin: 12/08/20 16:45 Dose: 4 mg Documented by: - Exam Quality Assessment: DVT Prophylaxis General: Alert, Oriented, Cooperative HEENT: Pupils Equal, Pupils Reactive, EOMI, Mucous Membr. Moist/[place] Neck: Supple, No JVD Lungs: Clear to Auscultation, Normal Respiratory Effort Cardiovascular: Regular Rate, Regular Rhythm GI/Abdominal Exam: Normal Bowel Sounds, Soft, Non-Tender Extremities: Normal Inspection, Normal Range of Motion, No Pedal Edema, Normal Capillary Refill Peripheral Pulses: 2+: Carotid (L), Carotid (R), Posterior Tibial (R), Dorsalis Pedis (L) Skin: Warm, Dry, Intact Wound/Incisions: Healing Well Neurological: No New Focal Deficit Psy/Mental Status: Alert, Normal Affect, Normal Mood - Patient Data Lab Results Last 24 hrs: Laboratory Results - last 24 hr 12/08/20 12/08/20 12/08/20 Range/Units 16:41 16:41 16:41 WBC 9.33 (4.0-11.0) K/uL RBC 4.21 L (4.30-5.90) M/uL Hgb 12.3 (12.0-16.0) g/dL Hct 38.0 (36.0-46.0) % MCV 90.3 (80.0-98.0) fL MCH 29.2 (27.0-32.0) pg MCHC 32.4 (31.0-37.0) g/dL RDW Std Deviation 52.8 (28.0-62.0) fl RDW Coeff of [place] 16 H (11.0-15.0) % Plt Count 378 (150-400) K/uL MPV 8.60 (7.40-12.00) fL Neut % (Auto) 70.3 (48.0-80.0) % Lymph % (Auto) 19.4 (16.0-40.0) % [place] % (Auto) 9.3 (0.0-15.0) % Eos % (Auto) 0.6 (0.0-7.0) % Baso % (Auto) 0.4 (0.0-1.5) % Neut # (Auto) 6.6 H (1.4-5.7) K/uL Lymph # (Auto) 1.8 (0.6-2.4) K/uL [place] # (Auto) 0.9 H (0.0-0.8) K/uL Eos # (Auto) 0.1 (0.0-0.7) K/uL Baso # (Auto) 0.0 (0.0-0.1) K/uL Nucleated RBC % 0.0 /100WBC Nucleated RBCs # 0 K/uL Sodium 136 (136-145) mmol/L Potassium 3.5 (3.5-5.1) mmol/L Chloride 99 (98-107) mmol/L Carbon Dioxide 27.7 (21.0-32.0) mmol/L BUN 13 (7.0-18.0) mg/dL Creatinine 0.7 (0.6-1.0) mg/dL Est Cr Clr Drug Dosing 97.79 mL/min Estimated GFR (MDRD) > 60.0 ml/min Glucose 137 H (74-106) mg/dL Calcium 8.1 L (8.5-10.1) mg/dL Phosphorus (2.6-4.7) mg/dL Magnesium (1.8-2.4) mg/dL Total Bilirubin 1.0 (0.2-1.0) mg/dL AST 50 H (15-37) IU/L ALT 39 (14-63) IU/L Alkaline Phosphatase 119 H (46-116) U/L Total Protein 7.9 (6.4-8.2) g/dL Albumin 3.8 (3.4-5.0) g/dL Globulin 4.1 H (2.6-4.0) g/dL Albumin/Globulin Ratio 0.9 (0.9-1.6) Lipase 4574 H (73-393) U/L Urine Color Urine Appearance Urine pH (5.0-8.0) Ur Specific [place] (1.001-1.035) Urine Protein (NEGATIVE) mg/dL Urine Glucose (UA) (NEGATIVE) mg/dL Urine Ketones (NEGATIVE) mg/dL Urine Occult Blood (NEGATIVE) Urine Nitrite (NEGATIVE) Urine Bilirubin (NEGATIVE) Urine Urobilinogen (<2.0) EU/dL Ur Leukocyte Esterase (NEGATIVE) Urine HCG, Qual (NEGATIVE) Ethyl Alcohol <3 mg/dL SARS-CoV-2 RNA (DENISSE) (NEGATIVE) 12/08/20 12/09/20 12/09/20 Range/Units 18:24 01:46 01:46 WBC (4.0-11.0) K/uL RBC (4.30-5.90) M/uL Hgb (12.0-16.0) g/dL Hct (36.0-46.0) % MCV (80.0-98.0) fL MCH (27.0-32.0) pg MCHC (31.0-37.0) g/dL RDW Std Deviation (28.0-62.0) fl RDW Coeff of [place] (11.0-15.0) % Plt Count (150-400) K/uL MPV (7.40-12.00) fL Neut % (Auto) (48.0-80.0) % Lymph % (Auto) (16.0-40.0) % [place] % (Auto) (0.0-15.0) % Eos % (Auto) (0.0-7.0) % Baso % (Auto) (0.0-1.5) % Neut # (Auto) (1.4-5.7) K/uL Lymph # (Auto) (0.6-2.4) K/uL [place] # (Auto) (0.0-0.8) K/uL Eos # (Auto) (0.0-0.7) K/uL Baso # (Auto) (0.0-0.1) K/uL Nucleated RBC % /100WBC Nucleated RBCs # K/uL Sodium (136-145) mmol/L Potassium (3.5-5.1) mmol/L Chloride (98-107) mmol/L Carbon Dioxide (21.0-32.0) mmol/L BUN (7.0-18.0) mg/dL Creatinine (0.6-1.0) mg/dL Est Cr Clr Drug Dosing mL/min Estimated GFR (MDRD) ml/min Glucose (74-106) mg/dL Calcium (8.5-10.1) mg/dL Phosphorus (2.6-4.7) mg/dL Magnesium (1.8-2.4) mg/dL Total Bilirubin (0.2-1.0) mg/dL AST (15-37) IU/L ALT (14-63) IU/L Alkaline Phosphatase (46-116) U/L Total Protein (6.4-8.2) g/dL Albumin (3.4-5.0) g/dL Globulin (2.6-4.0) g/dL Albumin/Globulin Ratio (0.9-1.6) Lipase (73-393) U/L Urine Color YELLOW Urine Appearance CLEAR Urine pH 7.0 (5.0-8.0) Ur Specific [place] 1.015 (1.001-1.035) Urine Protein NEGATIVE (NEGATIVE) mg/dL Urine Glucose (UA) NEGATIVE (NEGATIVE) mg/dL Urine Ketones TRACE H (NEGATIVE) mg/dL Urine Occult Blood NEGATIVE (NEGATIVE) Urine Nitrite NEGATIVE (NEGATIVE) Urine Bilirubin NEGATIVE (NEGATIVE) Urine Urobilinogen 0.2 (<2.0) EU/dL Ur Leukocyte Esterase NEGATIVE (NEGATIVE) Urine HCG, Qual NEGATIVE (NEGATIVE) Ethyl Alcohol mg/dL SARS-CoV-2 RNA (DENISSE) NEGATIVE (NEGATIVE) 12/09/20 12/09/20 12/09/20 Range/Units 05:35 05:35 05:35 WBC 5.84 (4.0-11.0) K/uL RBC 3.42 L (4.30-5.90) M/uL Hgb 9.8 L (12.0-16.0) g/dL Hct 31.2 L (36.0-46.0) % MCV 91.2 (80.0-98.0) fL MCH 28.7 (27.0-32.0) pg MCHC 31.4 (31.0-37.0) g/dL RDW Std Deviation 53.1 (28.0-62.0) fl RDW Coeff of [place] 16 H (11.0-15.0) % Plt Count 256 (150-400) K/uL MPV 8.60 (7.40-12.00) fL Neut % (Auto) 48.5 (48.0-80.0) % Lymph % (Auto) 36.8 (16.0-40.0) % [place] % (Auto) 12.2 (0.0-15.0) % Eos % (Auto) 2.2 (0.0-7.0) % Baso % (Auto) 0.3 (0.0-1.5) % Neut # (Auto) 2.8 (1.4-5.7) K/uL Lymph # (Auto) 2.2 (0.6-2.4) K/uL [place] # (Auto) 0.7 (0.0-0.8) K/uL Eos # (Auto) 0.1 (0.0-0.7) K/uL Baso # (Auto) 0.0 (0.0-0.1) K/uL Nucleated RBC % 0.0 /100WBC Nucleated RBCs # 0 K/uL Sodium 139 (136-145) mmol/L Potassium 3.4 L (3.5-5.1) mmol/L Chloride 104 (98-107) mmol/L Carbon Dioxide 28.5 (21.0-32.0) mmol/L BUN 5 L (7.0-18.0) mg/dL Creatinine 0.5 L (0.6-1.0) mg/dL Est Cr Clr Drug Dosing 136.90 mL/min Estimated GFR (MDRD) > 60.0 ml/min Glucose 115 H (74-106) mg/dL Calcium 7.3 L (8.5-10.1) mg/dL Phosphorus 2.0 L (2.6-4.7) mg/dL Magnesium (1.8-2.4) mg/dL Total Bilirubin 0.5 (0.2-1.0) mg/dL AST 27 (15-37) IU/L ALT 30 (14-63) IU/L Alkaline Phosphatase 80 (46-116) U/L Total Protein 5.7 L (6.4-8.2) g/dL Albumin 2.7 L (3.4-5.0) g/dL Globulin 3.0 (2.6-4.0) g/dL Albumin/Globulin Ratio 0.9 (0.9-1.6) Lipase 616 H (73-393) U/L Urine Color Urine Appearance Urine pH (5.0-8.0) Ur Specific [place] (1.001-1.035) Urine Protein (NEGATIVE) mg/dL Urine Glucose (UA) (NEGATIVE) mg/dL Urine Ketones (NEGATIVE) mg/dL Urine Occult Blood (NEGATIVE) Urine Nitrite (NEGATIVE) Urine Bilirubin (NEGATIVE) Urine Urobilinogen (<2.0) EU/dL Ur Leukocyte Esterase (NEGATIVE) Urine HCG, Qual (NEGATIVE) Ethyl Alcohol mg/dL SARS-CoV-2 RNA (DENISSE) (NEGATIVE) 12/09/20 Range/Units 05:35 WBC (4.0-11.0) K/uL RBC (4.30-5.90) M/uL Hgb (12.0-16.0) g/dL Hct (36.0-46.0) % MCV (80.0-98.0) fL MCH (27.0-32.0) pg MCHC (31.0-37.0) g/dL RDW Std Deviation (28.0-62.0) fl RDW Coeff of [place] (11.0-15.0) % Plt Count (150-400) K/uL MPV (7.40-12.00) fL Neut % (Auto) (48.0-80.0) % Lymph % (Auto) (16.0-40.0) % [place] % (Auto) (0.0-15.0) % Eos % (Auto) (0.0-7.0) % Baso % (Auto) (0.0-1.5) % Neut # (Auto) (1.4-5.7) K/uL Lymph # (Auto) (0.6-2.4) K/uL [place] # (Auto) (0.0-0.8) K/uL Eos # (Auto) (0.0-0.7) K/uL Baso # (Auto) (0.0-0.1) K/uL Nucleated RBC % /100WBC Nucleated RBCs # K/uL Sodium (136-145) mmol/L Potassium (3.5-5.1) mmol/L Chloride (98-107) mmol/L Carbon Dioxide (21.0-32.0) mmol/L BUN (7.0-18.0) mg/dL Creatinine (0.6-1.0) mg/dL Est Cr Clr Drug Dosing mL/min Estimated GFR (MDRD) ml/min Glucose (74-106) mg/dL Calcium (8.5-10.1) mg/dL Phosphorus (2.6-4.7) mg/dL Magnesium 1.7 L (1.8-2.4) mg/dL Total Bilirubin (0.2-1.0) mg/dL AST (15-37) IU/L ALT (14-63) IU/L Alkaline Phosphatase (46-116) U/L Total Protein (6.4-8.2) g/dL Albumin (3.4-5.0) g/dL Globulin (2.6-4.0) g/dL Albumin/Globulin Ratio (0.9-1.6) Lipase (73-393) U/L Urine Color Urine Appearance Urine pH (5.0-8.0) Ur Specific [place] (1.001-1.035) Urine Protein (NEGATIVE) mg/dL Urine Glucose (UA) (NEGATIVE) mg/dL Urine Ketones (NEGATIVE) mg/dL Urine Occult Blood (NEGATIVE) Urine Nitrite (NEGATIVE) Urine Bilirubin (NEGATIVE) Urine Urobilinogen (<2.0) EU/dL Ur Leukocyte Esterase (NEGATIVE) Urine HCG, Qual (NEGATIVE) Ethyl Alcohol mg/dL SARS-CoV-2 RNA (DENISSE) (NEGATIVE) Result Diagrams: 12/09/20 05:35 12/09/20 05:35 Sepsis Event Note - Evaluation Sepsis Screening Result: No Definite Risk - Focused Exam Vital Signs: Vital Signs Temp Pulse Resp BP BP Pulse Ox 12/09/20 12:00 97.0 F 76 16 162/98 H 100 12/09/20 08:00 97.1 F 80 16 155/97 H 80 L 12/09/20 04:11 97.3 F 74 16 134/87 97 - Problem List & Annotations (1) Abdominal pain SNOMED Code(s): 79118699 Code(s): R10.9 - UNSPECIFIED ABDOMINAL PAIN Status: Acute Current Visit: No Qualifiers: Abdominal location: epigastric Qualified Code(s): R10.13 - Epigastric pain (2) Pancreatitis SNOMED Code(s): 89868089 Code(s): K85.90 - ACUTE PANCREATITIS WITHOUT NECROSIS OR INFECTION, UNSP Status: Acute Current Visit: No (3) Alcohol abuse SNOMED Code(s): 95669172 Code(s): F10.10 - ALCOHOL ABUSE, UNCOMPLICATED Status: Chronic Current Visit: No (4) Recurrent pancreatitis SNOMED Code(s): 705879338 Code(s): K86.1 - OTHER CHRONIC PANCREATITIS Status: Acute Current Visit: No - Problem List Review Problem List Initiated/Reviewed/Updated: No - My Orders Last 24 Hours: My Active Orders 12/08/20 19:22 Oxygen Therapy [RC] PRN Up ad [place] [RC] ASDIRECTED VTE/DVT Education [RC] PER UNIT ROUTINE Vital Signs [RC] Q4H Ondansetron [Zofran] 4 mg IVPUSH Q4H PRN Resuscitation Status Routine 12/08/20 19:23 Sequential Compression Device [OM.PC] Per Unit Routine 12/08/20 19:25 Antiembolic Devices [RC] PER UNIT ROUTINE 12/08/20 19:30 Folic Acid 1 mg IV DAILY Lactated Ringers [Ringers, Lactated] 1,000 ml IV ASDIRECTED Pantoprazole [ProTONIX IV] 40 mg Sodium Chloride 0.9% [Normal Saline] 10 ml IV Q24H 12/09/20 Breakfast Nothing Per Oral Diet [DIET] 12/09/20 11:41 HYDROmorphone [Dilaudid] 1 mg IVPUSH Q3H PRN 12/10/20 05:11 CBC WITH AUTO DIFF [HEME] AM COMPREHENSIVE METABOLIC PN,CMP [CHEM] AM 12/11/20 05:11 CBC WITH AUTO DIFF [HEME] AM COMPREHENSIVE METABOLIC PN,CMP [CHEM] AM 12/12/20 05:11 CBC WITH AUTO DIFF [HEME] AM COMPREHENSIVE METABOLIC PN,CMP [CHEM] AM - Plan Plan:: 35-year-old female admitted for recurrent acute on chronic pancreatitis: 1. Acute on chronic alcoholic pancreatitis: Improved Lipase 616 this morning Pain 5 out of 10 this morning , patient remains n.p.o. except for ice chips, continue with fluids. CT Abdo indicated pancreatitis, incidental finding distended gallbladder therefore get a stat abdominal ultrasound. Repeat lipase in the a.m. Start to reduce frequency of pain medication, therefore Dilaudid 1 mg IV every 3 hours hours for pain, Zofran IV for nausea as needed. We will likely initiate diet this evening with clear liquid diet. 2. Alcohol abuse disorder: Continue with thiamine and folic acid supplementation Patient states last drink was 3 weeks ago, CIWA this morning was 0. Per patient, varices have resolved. Recent CT did not indicate any active varices. 3. Hypertension: Resolved, One-time IV labetalol 20, otherwise blood pressures been stable today 4. GI prophylaxis: Protonix 40 IV daily, and SCDs CODE STATUS: Full code Dispo: 2 to 3 days
[2020-12-09] MEDS ORDERED: Labetalol 100 MG/20 ML MDV IVPUSH ONE (18:58)
[2020-12-09] MEDS: Pantoprazole 40 MG in Sodium Chloride 0.9% 10 ML IV SCH (19:00)
[2020-12-09] MEDS ORDERED: Labetalol 100 MG/20 ML MDV IVPUSH PRN (21:40)
[2020-12-10] MEDS: HYDROmorphone 1 MG/ML Syringe IVPUSH PRN ×4 (00:25→09:47)
[2020-12-10] MEDS: Lactated Ringers 1,000 ML IV SCH ×2 (00:27→04:49)
[2020-12-10 06:28] LABS: BLOOD UREA NITROGEN,BUN 3 mg/dL (7.0-18.0); CARBON DIOXIDE,CO2 27.2 mmol/L (21.0-32.0); CHLORIDE,CL 102 mmol/L (98-107); GLUCOSE RANDOM 98 mg/dL (74-106); POTASSIUM,K 3.6 mmol/L (3.5-5.1); SODIUM,NA 139 mmol/L (136-145)
[2020-12-10] MEDS: Thiamine 200 MG/2 ML MDV IVPUSH SCH (08:34)
[2020-12-10] MEDS: Folic Acid 50 MG/10 ML MDV IV SCH (08:34)
--- NOTE | 2020-12-10 09:15 | PCM.PN ---
- General Info Date of Service: 12/10/20 - Patient Data Vitals - Most Recent: Last Vital Signs Temp 97.6 F 12/10/20 08:20 Pulse 75 12/10/20 08:20 Resp 14 12/10/20 08:20 BP 139/88 12/10/20 08:20 Pulse Ox 100 12/10/20 08:20 Weight - Most Recent: 161 lb 3.2 oz I&O - Last 24 Hours: Intake & Output 12/09/20 12/10/20 12/10/20 22:59 06:59 14:59 Intake Total 1414 1370 Output Total 5938 1700 Balance -511 -330 Lab Results Last 24 Hours: Laboratory Results - last 24 hr 12/10/20 12/10/20 12/10/20 Range/Units 04:45 04:45 04:45 WBC 6.32 (4.0-11.0) K/uL RBC 3.61 L (4.30-5.90) M/uL Hgb 10.4 L (12.0-16.0) g/dL Hct 33.2 L (36.0-46.0) % MCV 92.0 (80.0-98.0) fL MCH 28.8 (27.0-32.0) pg MCHC 31.3 (31.0-37.0) g/dL RDW Std Deviation 52.8 (28.0-62.0) fl RDW Coeff of [place] 16 H (11.0-15.0) % Plt Count 286 (150-400) K/uL MPV 8.70 (7.40-12.00) fL Neut % (Auto) 52.5 (48.0-80.0) % Lymph % (Auto) 31.8 (16.0-40.0) % Price % (Auto) 12.7 (0.0-15.0) % Eos % (Auto) 2.4 (0.0-7.0) % Baso % (Auto) 0.6 (0.0-1.5) % Neut # (Auto) 3.3 (1.4-5.7) K/uL Lymph # (Auto) 2.0 (0.6-2.4) K/uL Price # (Auto) 0.8 (0.0-0.8) K/uL Eos # (Auto) 0.2 (0.0-0.7) K/uL Baso # (Auto) 0.0 (0.0-0.1) K/uL Nucleated RBC % 0.0 /100WBC Nucleated RBCs # 0 K/uL Sodium 139 (136-145) mmol/L Potassium 3.6 (3.5-5.1) mmol/L Chloride 102 (98-107) mmol/L Carbon Dioxide 27.2 (21.0-32.0) mmol/L BUN 3 L (7.0-18.0) mg/dL Creatinine 0.5 L (0.6-1.0) mg/dL Est Cr Clr Drug Dosing 136.90 mL/min Estimated GFR (MDRD) > 60.0 ml/min Glucose 98 (74-106) mg/dL Calcium 7.9 L (8.5-10.1) mg/dL Total Bilirubin 0.4 (0.2-1.0) mg/dL AST 36 (15-37) IU/L ALT 30 (14-63) IU/L Alkaline Phosphatase 80 (46-116) U/L Total Protein 6.3 L (6.4-8.2) g/dL Albumin 2.9 L (3.4-5.0) g/dL Globulin 3.4 (2.6-4.0) g/dL Albumin/Globulin Ratio 0.9 (0.9-1.6) Lipase 93 (73-393) U/L Med Orders - Current: Current Medications Folic Acid (Folic Acid 50 Mg/10 Ml Mdv) 1 mg IV DAILY [facility] Last Admin: 12/10/20 08:34 Dose: 1 mg Documented by: Hydromorphone HCl (Hydromorphone 1 Mg/Ml Syringe) 1 mg IVPUSH Q3H PRN PRN Reason: Pain (severe 7-10) Last Admin: 12/10/20 06:52 Dose: 1 mg Documented by: Lactated Ringer's (Ringers, Lactated) 1,000 mls @ 200 mls/hr IV ASDIRECTED [facility] Last Admin: 12/10/20 04:49 Dose: 200 mls/hr Documented by: Pantoprazole Sodium 40 mg/ (Sodium Chloride) 10 mls @ 300 mls/hr IV Q24H [facility] Last Admin: 12/09/20 19:00 Dose: 300 mls/hr Documented by: Labetalol HCl (Labetalol 100 Mg/20 Ml Mdv) 20 mg IVPUSH Q4H PRN; Protocol PRN Reason: Hypertension Ondansetron HCl (Ondansetron 4 Mg/2 Ml Sdv) 4 mg IVPUSH Q4H PRN PRN Reason: Abdominal Pain Thiamine HCl (Thiamine 200 Mg/2 Ml Mdv) 100 mg IVPUSH DAILY [facility] Last Admin: 12/10/20 08:34 Dose: 100 mg Documented by: Discontinued Medications Hydromorphone HCl (Hydromorphone 2 Mg/Ml Syringe) 1 mg IVPUSH Q2H PRN PRN Reason: Pain (severe 7-10) Last Admin: 12/09/20 09:00 Dose: 1 mg Documented by: Sodium Chloride (Normal Saline) 1,000 mls @ 999 mls/hr IV STAT ONE Stop: 12/08/20 17:39 Last Admin: 12/08/20 16:46 Dose: 999 mls/hr Documented by: Lactated Ringer's (Ringers, Lactated) 1,000 mls @ 999 mls/hr IV BOLUS ONE Stop: 12/08/20 20:22 Last Admin: 12/08/20 21:32 Dose: 999 mls/hr Documented by: Thiamine HCl 100 mg/ Sodium (Chloride) 101 mls @ 202 mls/hr IV DAILY [facility] Last Admin: 12/09/20 13:32 Dose: Not Given Documented by: Magnesium Sulfate 2 gm/Potassium Chloride/Sodium Chloride 1,004 mls @ 150 mls/hr IV ONETIME ONE Stop: 12/09/20 16:56 Last Admin: 12/09/20 13:33 Dose: Not Given Documented by: Magnesium Sulfate 2 gm/Potassium Chloride 40 meq/Sodium Chloride 1,024 mls @ 152.988 mls/hr IV ONETIME ONE Stop: 12/09/20 16:56 Last Admin: 12/09/20 12:05 Dose: 152.988 mls/hr Documented by: Iopamidol (Iopamidol 755 Mg/Ml 500 Ml Multipack Bottle) 100 ml IVPUSH ONETIME ONE Stop: 12/08/20 17:45 Last Admin: 12/08/20 17:44 Dose: 100 ml Documented by: Ketorolac Tromethamine (Ketorolac 30 Mg/Ml Sdv) 30 mg IVPUSH ONETIME ONE Stop: 12/08/20 17:45 Last Admin: 12/08/20 17:52 Dose: 30 mg Documented by: Labetalol HCl (Labetalol 100 Mg/20 Ml Mdv) 20 mg IVPUSH ONETIME ONE; Protocol Stop: 12/08/20 19:33 Last Admin: 12/08/20 23:29 Dose: 20 mg Documented by: Labetalol HCl (Labetalol 100 Mg/20 Ml Mdv) 20 mg IVPUSH ONETIME ONE; Protocol Stop: 12/09/20 18:59 Last Admin: 12/09/20 23:19 Dose: Not Given Documented by: Morphine Sulfate (Morphine 4 Mg/Ml Syringe) 4 mg IVPUSH ONETIME ONE Stop: 12/08/20 16:40 Last Admin: 12/08/20 16:45 Dose: 4 mg Documented by: Morphine Sulfate (Morphine 2 Mg/Ml Syringe) 2 mg IVPUSH ONETIME ONE Stop: 12/08/20 17:46 Last Admin: 12/08/20 18:01 Dose: 2 mg Documented by: Ondansetron HCl (Ondansetron 4 Mg/2 Ml Sdv) 4 mg IVPUSH ONETIME ONE Stop: 12/08/20 16:40 Last Admin: 12/08/20 16:45 Dose: 4 mg Documented by: - Patient Data Lab Results Last 24 hrs: Laboratory Results - last 24 hr 12/10/20 12/10/20 12/10/20 Range/Units 04:45 04:45 04:45 WBC 6.32 (4.0-11.0) K/uL RBC 3.61 L (4.30-5.90) M/uL Hgb 10.4 L (12.0-16.0) g/dL Hct 33.2 L (36.0-46.0) % MCV 92.0 (80.0-98.0) fL MCH 28.8 (27.0-32.0) pg MCHC 31.3 (31.0-37.0) g/dL RDW Std Deviation 52.8 (28.0-62.0) fl RDW Coeff of [place] 16 H (11.0-15.0) % Plt Count 286 (150-400) K/uL MPV 8.70 (7.40-12.00) fL Neut % (Auto) 52.5 (48.0-80.0) % Lymph % (Auto) 31.8 (16.0-40.0) % Price % (Auto) 12.7 (0.0-15.0) % Eos % (Auto) 2.4 (0.0-7.0) % Baso % (Auto) 0.6 (0.0-1.5) % Neut # (Auto) 3.3 (1.4-5.7) K/uL Lymph # (Auto) 2.0 (0.6-2.4) K/uL Price # (Auto) 0.8 (0.0-0.8) K/uL Eos # (Auto) 0.2 (0.0-0.7) K/uL Baso # (Auto) 0.0 (0.0-0.1) K/uL Nucleated RBC % 0.0 /100WBC Nucleated RBCs # 0 K/uL Sodium 139 (136-145) mmol/L Potassium 3.6 (3.5-5.1) mmol/L Chloride 102 (98-107) mmol/L Carbon Dioxide 27.2 (21.0-32.0) mmol/L BUN 3 L (7.0-18.0) mg/dL Creatinine 0.5 L (0.6-1.0) mg/dL Est Cr Clr Drug Dosing 136.90 mL/min Estimated GFR (MDRD) > 60.0 ml/min Glucose 98 (74-106) mg/dL Calcium 7.9 L (8.5-10.1) mg/dL Total Bilirubin 0.4 (0.2-1.0) mg/dL AST 36 (15-37) IU/L ALT 30 (14-63) IU/L Alkaline Phosphatase 80 (46-116) U/L Total Protein 6.3 L (6.4-8.2) g/dL Albumin 2.9 L (3.4-5.0) g/dL Globulin 3.4 (2.6-4.0) g/dL Albumin/Globulin Ratio 0.9 (0.9-1.6) Lipase 93 (73-393) U/L Result Diagrams: 12/10/20 04:45 12/10/20 04:45 Sepsis Event Note - Evaluation Sepsis Screening Result: No Definite Risk - Focused Exam Vital Signs: Vital Signs Temp Pulse Resp BP Pulse Ox 12/10/20 08:20 97.6 F 75 14 139/88 100 12/10/20 04:09 96.7 F L 76 17 168/99 H 98 12/10/20 00:28 97.6 F 85 16 146/108 H 99 - Problem List & Annotations (1) Abdominal pain SNOMED Code(s): 62531104 Code(s): R10.9 - UNSPECIFIED ABDOMINAL PAIN Status: Acute Current Visit: No Qualifiers: Abdominal location: epigastric Qualified Code(s): R10.13 - Epigastric pain (2) Pancreatitis SNOMED Code(s): 35728192 Code(s): K85.90 - ACUTE PANCREATITIS WITHOUT NECROSIS OR INFECTION, UNSP Status: Acute Current Visit: No (3) Alcohol abuse SNOMED Code(s): 54657314 Code(s): F10.10 - ALCOHOL ABUSE, UNCOMPLICATED Status: Chronic Current Visit: No (4) Recurrent pancreatitis SNOMED Code(s): 149906115 Code(s): K86.1 - OTHER CHRONIC PANCREATITIS Status: Acute Current Visit: No - My Orders Last 24 Hours: My Active Orders 12/09/20 11:41 HYDROmorphone [Dilaudid] 1 mg IVPUSH Q3H PRN 12/09/20 18:52 Resuscitation Status Routine 12/10/20 04:45 MAGNESIUM [CHEM] Stat PHOSPHORUS [CHEM] Stat 12/10/20 Breakfast Clear Liquid Diet [DIET] 12/11/20 05:11 CBC WITH AUTO DIFF [HEME] AM COMPREHENSIVE METABOLIC PN,CMP [CHEM] AM 12/12/20 05:11 CBC WITH AUTO DIFF [HEME] AM COMPREHENSIVE METABOLIC PN,CMP [CHEM] AM - Plan Plan:: 35-year-old female admitted for recurrent acute on chronic pancreatitis: 1. Acute on chronic alcoholic pancreatitis: Improved Lipase 616 this morning Pain 5 out of 10 this morning , patient remains n.p.o. except for ice chips, continue with fluids. CT Abdo indicated pancreatitis, incidental finding distended gallbladder therefore get a stat abdominal ultrasound. Repeat lipase in the a.m. Start to reduce frequency of pain medication, therefore Dilaudid 1 mg IV every 3 hours hours for pain, Zofran IV for nausea as needed. We will likely initiate diet this evening with clear liquid diet. 2. Alcohol abuse disorder: Continue with thiamine and folic acid supplementation Patient states last drink was 3 weeks ago, CIWA this morning was 0. Per patient, varices have resolved. Recent CT did not indicate any active varices. 3. Hypertension: Resolved, One-time IV labetalol 20, otherwise blood pressures been stable today 4. GI prophylaxis: Protonix 40 IV daily, and SCDs CODE STATUS: Full code Dispo: 2 to 3 days
--- NOTE | 2020-12-10 11:29 | PCM.DCSUM1 ---
Discharge Summary - Hospital Course HPI Initial Comments: Patient is a 35-year-old female presents to the emergency room with complaints of upper abdominal pain, nausea and vomiting. She states she recently was admitted at a nearby hospital (can't remember if it is [facility] or [facility]) for pancreatitis. She was discharged at 11 AM this morning although she continued to have pain. She states the pain has progressively gotten worse and is now here in our emergency room for evaluation. She is requesting pain management. Patient states her pancreatitis is related to alcohol abuse although has not drank in several weeks. Patient denies any fever, chills, headache, change in vision, syncope or near syncope. Denies any chest pain, back pain, shortness of breath or cough. Denies any diarrhea, constipation or dysuria. Has not noted any blood in urine or stool. No concern for , took a test yesterday was negative. Patient has been eating and drinking appropriately. Brief History: Patient is a 35-year-old female with previous known history of alcohol abuse, well-known to the hospital for recurrent admissions for pancreatitis. Patient was seen today in the hospital for concerns regarding abdominal pain described as sharp, constant, midepigastric 9 out of 10 on the pain scale. Was given pain medication in the ED which helped bring it to a 7 out of 10. Stated that she had some associated nausea and vomiting earlier today, currently denies any nausea vomiting. No alleviating or aggravating factors. Has had similar bouts before. States that last drink was 3 weeks ago. Otherwise, denied any fever, chills, diarrhea, shortness of breath, yellowing of the skin, pruritus, vomiting blood. ED course: IV fluids, Zofran, morphine, Toradol were given. CBC, CMP, lipase is elevated 4574, CT Abdo pelvis corresponds with pancreatitis. Diagnosis: Stroke: No - Discharge Data Discharge Date: 12/10/20 Discharge Disposition: Home, Self-Care 01 Condition: Good - Referral to Home Health Primary Care Physician: Jarrett Harper MD - Discharge Diagnosis/Problem(s) (1) Abdominal pain SNOMED Code(s): 21407992 ICD Code: R10.9 - UNSPECIFIED ABDOMINAL PAIN Status: Acute Current Visit: No Qualifiers: Abdominal location: epigastric Qualified Code(s): R10.13 - Epigastric pain (2) Pancreatitis SNOMED Code(s): 37194270 ICD Code: K85.90 - ACUTE PANCREATITIS WITHOUT NECROSIS OR INFECTION, UNSP Status: Acute Current Visit: No (3) Alcohol abuse SNOMED Code(s): 32883088 ICD Code: F10.10 - ALCOHOL ABUSE, UNCOMPLICATED Status: Chronic Current Visit: No (4) Recurrent pancreatitis SNOMED Code(s): 183147766 ICD Code: K86.1 - OTHER CHRONIC PANCREATITIS Status: Acute Current Visit: No - Patient Instructions Diet: Regular Diet as Tolerated Activity: As Tolerated Driving: May Drive Today Showering/Bathing: May Shower Notify Provider of: Fever, Increased Pain, Swelling and Redness, Drainage, Nausea and/or Vomiting - Discharge Plan *PRESCRIPTION DRUG MONITORING PROGRAM REVIEWED*: Not Applicable *COPY OF PRESCRIPTION DRUG MONITORING REPORT IN PATIENT RENÉE: Not Applicable Home Medications: Home Meds Amylase/Lipase/Protease [Verna ZALDIVAR 24,000 Unit] 1 cap PO TIDMEALS 12/08/20 [History] Oxygen Therapy Mode: Room Air Forms: ED Department Discharge Referrals: Jarrett Harper MD [Primary Care Provider] - - Discharge Summary/Plan Comment DC Time >30 min.: No Discharge Summary/Plan Comment: Patient was counseled on abstinence from alcohol abuse, discussed possible resources available such as meetings and chemical dependency unit in my not. Patient states she has aware of all possible resources, has good support from her boyfriend and has improved with use alcohol as frequently. Patient is to return to the hospital in the event her symptoms return, she develops any abdominal pain unable to tolerate a diet, significant nausea, vomiting, diarrhea. - Patient Data Vitals - Most Recent: Last Vital Signs Temp 97.6 F 12/10/20 08:20 Pulse 75 12/10/20 08:20 Resp 14 12/10/20 08:20 BP 139/88 12/10/20 08:20 Pulse Ox 100 12/10/20 08:20 Weight - Most Recent: 161 lb 3.2 oz I&O - Last 24 hours: Intake & Output 12/09/20 12/10/20 12/10/20 22:59 06:59 14:59 Intake Total 1414 1370 1804 Output Total 1925 1700 Balance -511 -330 1804 Lab Results - Last 24 hrs: Laboratory Results - last 24 hr 12/10/20 12/10/20 12/10/20 Range/Units 04:45 04:45 04:45 WBC 6.32 (4.0-11.0) K/uL RBC 3.61 L (4.30-5.90) M/uL Hgb 10.4 L (12.0-16.0) g/dL Hct 33.2 L (36.0-46.0) % MCV 92.0 (80.0-98.0) fL MCH 28.8 (27.0-32.0) pg MCHC 31.3 (31.0-37.0) g/dL RDW Std Deviation 52.8 (28.0-62.0) fl RDW Coeff of [place] 16 H (11.0-15.0) % Plt Count 286 (150-400) K/uL MPV 8.70 (7.40-12.00) fL Neut % (Auto) 52.5 (48.0-80.0) % Lymph % (Auto) 31.8 (16.0-40.0) % [place] % (Auto) 12.7 (0.0-15.0) % Eos % (Auto) 2.4 (0.0-7.0) % Baso % (Auto) 0.6 (0.0-1.5) % Neut # (Auto) 3.3 (1.4-5.7) K/uL Lymph # (Auto) 2.0 (0.6-2.4) K/uL [place] # (Auto) 0.8 (0.0-0.8) K/uL Eos # (Auto) 0.2 (0.0-0.7) K/uL Baso # (Auto) 0.0 (0.0-0.1) K/uL Nucleated RBC % 0.0 /100WBC Nucleated RBCs # 0 K/uL Sodium 139 (136-145) mmol/L Potassium 3.6 (3.5-5.1) mmol/L Chloride 102 (98-107) mmol/L Carbon Dioxide 27.2 (21.0-32.0) mmol/L BUN 3 L (7.0-18.0) mg/dL Creatinine 0.5 L (0.6-1.0) mg/dL Est Cr Clr Drug Dosing 136.90 mL/min Estimated GFR (MDRD) > 60.0 ml/min Glucose 98 (74-106) mg/dL Calcium 7.9 L (8.5-10.1) mg/dL Phosphorus (2.6-4.7) mg/dL Magnesium (1.8-2.4) mg/dL Total Bilirubin 0.4 (0.2-1.0) mg/dL AST 36 (15-37) IU/L ALT 30 (14-63) IU/L Alkaline Phosphatase 80 (46-116) U/L Total Protein 6.3 L (6.4-8.2) g/dL Albumin 2.9 L (3.4-5.0) g/dL Globulin 3.4 (2.6-4.0) g/dL Albumin/Globulin Ratio 0.9 (0.9-1.6) Lipase 93 (73-393) U/L 12/10/20 Range/Units 04:45 WBC (4.0-11.0) K/uL RBC (4.30-5.90) M/uL Hgb (12.0-16.0) g/dL Hct (36.0-46.0) % MCV (80.0-98.0) fL MCH (27.0-32.0) pg MCHC (31.0-37.0) g/dL RDW Std Deviation (28.0-62.0) fl RDW Coeff of [place] (11.0-15.0) % Plt Count (150-400) K/uL MPV (7.40-12.00) fL Neut % (Auto) (48.0-80.0) % Lymph % (Auto) (16.0-40.0) % [place] % (Auto) (0.0-15.0) % Eos % (Auto) (0.0-7.0) % Baso % (Auto) (0.0-1.5) % Neut # (Auto) (1.4-5.7) K/uL Lymph # (Auto) (0.6-2.4) K/uL [place] # (Auto) (0.0-0.8) K/uL Eos # (Auto) (0.0-0.7) K/uL Baso # (Auto) (0.0-0.1) K/uL Nucleated RBC % /100WBC Nucleated RBCs # K/uL Sodium (136-145) mmol/L Potassium (3.5-5.1) mmol/L Chloride (98-107) mmol/L Carbon Dioxide (21.0-32.0) mmol/L BUN (7.0-18.0) mg/dL Creatinine (0.6-1.0) mg/dL Est Cr Clr Drug Dosing mL/min Estimated GFR (MDRD) ml/min Glucose (74-106) mg/dL Calcium (8.5-10.1) mg/dL Phosphorus 2.5 L (2.6-4.7) mg/dL Magnesium 2.0 (1.8-2.4) mg/dL Total Bilirubin (0.2-1.0) mg/dL AST (15-37) IU/L ALT (14-63) IU/L Alkaline Phosphatase (46-116) U/L Total Protein (6.4-8.2) g/dL Albumin (3.4-5.0) g/dL Globulin (2.6-4.0) g/dL Albumin/Globulin Ratio (0.9-1.6) Lipase (73-393) U/L Med Orders - Current: Current Medications Folic Acid (Folic Acid 50 Mg/10 Ml Mdv) 1 mg IV DAILY [facility] Last Admin: 12/10/20 08:34 Dose: 1 mg Documented by: Hydromorphone HCl (Hydromorphone 1 Mg/Ml Syringe) 1 mg IVPUSH Q3H PRN PRN Reason: Pain (severe 7-10) Last Admin: 12/10/20 09:47 Dose: 1 mg Documented by: Lactated Ringer's (Ringers, Lactated) 1,000 mls @ 200 mls/hr IV ASDIRECTED [facility] Last Admin: 12/10/20 04:49 Dose: 200 mls/hr Documented by: Pantoprazole Sodium 40 mg/ (Sodium Chloride) 10 mls @ 300 mls/hr IV Q24H [facility] Last Admin: 12/09/20 19:00 Dose: 300 mls/hr Documented by: Labetalol HCl (Labetalol 100 Mg/20 Ml Mdv) 20 mg IVPUSH Q4H PRN; Protocol PRN Reason: Hypertension Ondansetron HCl (Ondansetron 4 Mg/2 Ml Sdv) 4 mg IVPUSH Q4H PRN PRN Reason: Abdominal Pain Thiamine HCl (Thiamine 200 Mg/2 Ml Mdv) 100 mg IVPUSH DAILY [facility] Last Admin: 12/10/20 08:34 Dose: 100 mg Documented by: Discontinued Medications Hydromorphone HCl (Hydromorphone 2 Mg/Ml Syringe) 1 mg IVPUSH Q2H PRN PRN Reason: Pain (severe 7-10) Last Admin: 12/09/20 09:00 Dose: 1 mg Documented by: Sodium Chloride (Normal Saline) 1,000 mls @ 999 mls/hr IV STAT ONE Stop: 12/08/20 17:39 Last Admin: 12/08/20 16:46 Dose: 999 mls/hr Documented by: Lactated Ringer's (Ringers, Lactated) 1,000 mls @ 999 mls/hr IV BOLUS ONE Stop: 12/08/20 20:22 Last Admin: 12/08/20 21:32 Dose: 999 mls/hr Documented by: Thiamine HCl 100 mg/ Sodium (Chloride) 101 mls @ 202 mls/hr IV DAILY [facility] Last Admin: 12/09/20 13:32 Dose: Not Given Documented by: Magnesium Sulfate 2 gm/Potassium Chloride/Sodium Chloride 1,004 mls @ 150 mls/hr IV ONETIME ONE Stop: 12/09/20 16:56 Last Admin: 12/09/20 13:33 Dose: Not Given Documented by: Magnesium Sulfate 2 gm/Potassium Chloride 40 meq/Sodium Chloride 1,024 mls @ 1 52.988 mls/hr IV ONETIME ONE Stop: 12/09/20 16:56 Last Admin: 12/09/20 12:05 Dose: 152.988 mls/hr Documented by: Iopamidol (Iopamidol 755 Mg/Ml 500 Ml Multipack Bottle) 100 ml IVPUSH ONETIME ONE Stop: 12/08/20 17:45 Last Admin: 12/08/20 17:44 Dose: 100 ml Documented by: Ketorolac Tromethamine (Ketorolac 30 Mg/Ml Sdv) 30 mg IVPUSH ONETIME ONE Stop: 12/08/20 17:45 Last Admin: 12/08/20 17:52 Dose: 30 mg Documented by: Labetalol HCl (Labetalol 100 Mg/20 Ml Mdv) 20 mg IVPUSH ONETIME ONE; Protocol Stop: 12/08/20 19:33 Last Admin: 12/08/20 23:29 Dose: 20 mg Documented by: Labetalol HCl (Labetalol 100 Mg/20 Ml Mdv) 20 mg IVPUSH ONETIME ONE; Protocol Stop: 12/09/20 18:59 Last Admin: 12/09/20 23:19 Dose: Not Given Documented by: Morphine Sulfate (Morphine 4 Mg/Ml Syringe) 4 mg IVPUSH ONETIME ONE Stop: 12/08/20 16:40 Last Admin: 12/08/20 16:45 Dose: 4 mg Documented by: Morphine Sulfate (Morphine 2 Mg/Ml Syringe) 2 mg IVPUSH ONETIME ONE Stop: 12/08/20 17:46 Last Admin: 12/08/20 18:01 Dose: 2 mg Documented by: Ondansetron HCl (Ondansetron 4 Mg/2 Ml Sdv) 4 mg IVPUSH ONETIME ONE Stop: 12/08/20 16:40 Last Admin: 12/08/20 16:45 Dose: 4 mg Documented by:
== END 2020-12-10 12:55 | disposition home or self-care (01) | DRG 282 ==
LOC: MW.ED 16:23 → MW.MS 18:22
PROVIDERS: ADMIT Student in an Organized Health Care Education/Training Program; ATTEND Student in an Organized Health Care Education/Training Program
DX: K85.20 Alcohol induced acute pancreatitis without necrosis or infection (principal); F10.10 Alcohol abuse, uncomplicated; K86.1 Other chronic pancreatitis; F41.9 Anxiety disorder, unspecified; F32.9 Major depressive disorder, single episode, unspecified; Z20.822 Contact with and (suspected) exposure to COVID-19; I10 Essential (primary) hypertension
CPT/HCPCS: 36415; 74177; 74177-26; 76705; 76705-26; 80053; 80307; 81003; 81025; 83690; 83735; 84100; 85025; 96374; 96375; 96376; 99284; 99285-25; C9113; J1170; J1885; J2270; J2405; J3411; J3475; J3480; J3490; J7030; J7120; Q9967; U0002

== ENCOUNTER 2021-05-16 20:39 | Emergency (ER) | payer BC ==
[2021-05-16] MEDS ORDERED: Ondansetron 4 MG/2 ML SDV IVPUSH ONE (21:04)
[2021-05-16] MEDS ORDERED: fentaNYL 50 MCG/ML SDV IVPUSH ONE (21:04)
[2021-05-16] MEDS ORDERED: Sodium Chloride 0.9% 2.5 ML Syringe FLUSH PRN (21:04)
[2021-05-16] MEDS ORDERED: Sodium Chloride 0.9% 1,000 ML IV ONE (21:04)
[2021-05-16] MEDS ORDERED: Sodium Chloride 0.9% 10 ML Syringe FLUSH PRN (21:04)
[2021-05-16 22:32] LABS: BLOOD UREA NITROGEN,BUN 17 mg/dL (7.0-18.0); CARBON DIOXIDE,CO2 26.3 mmol/L (21.0-32.0); CHLORIDE,CL 100 mmol/L (98-107); GLUCOSE RANDOM 105 mg/dL (74-106); LIPASE 128 U/L (73-393); POTASSIUM,K 4.2 mmol/L (3.5-5.1); SODIUM,NA 136 mmol/L (136-145)
--- NOTE | 2021-05-16 22:55 | EDM.PDOC ---
ED HPI GENERAL MEDICAL PROBLEM - General Chief Complaint: Abdominal Pain Stated Complaint: ABDOMINAL PAIN Time Seen by Provider: 05/16/21 20:47 - History of Present Illness INITIAL COMMENTS - FREE TEXT/NARRATIVE: HISTORY AND PHYSICAL: History of present illness: This a 36-year-old female who presents ER today secondary to midepigastric abdominal pain that started 2 3 hours ago. Patient reports that she has had similar symptoms in the past that were diagnosed with pancreatitis from alcohol use. Patient reports that she has been drinking heavily recently and reports that she drinks at least 5 drinks per day. Patient reports that she was feeling fine up until earlier today when she had several drinks and started experiencing pain in her midepigastric area similar to prior pancreatitis. Patient denies any recent fevers, shakes, chills. Patient reports nausea with no vomiting or diarrhea. Patient has any dysuria, frequency, urgency. Review of systems: As per history of present illness and below otherwise all systems reviewed and negative. Past medical history: As per history of present illness and as reviewed below otherwise noncontributory. Surgical history: As per history of present illness and as reviewed below otherwise noncontributory. Social history: No reported history of drug abuse. Family history: As per history of present illness and as reviewed below otherwise noncontributory. Physical exam: This patient was seen and evaluated during the 2019 SARS-CoV-2 novel coronavirus pandemic period. Community viral transmission is ongoing at time of this encounter and the emergency department is operating under pandemic response procedures. Constitutional: Patient is oriented to person, place, and time. Appears well- developed and well-nourished. No distress. HEENT: Moist mucous membranes Head: Normocephalic and atraumatic Eyes: Right eye exhibits no discharge. Left eye exhibits no discharge. No scleral icterus Neck: Normal range of motion. No tracheal deviation present. Cardiovascular: Normal rate and regular rhythm. Pulmonary: Effort normal, no respiratory distress. Abd: Soft, nondistended, no rebound/guarding, no psoas or obturator signs, no tenderness at Mcberney's point, no Avalos's sign. Pt does not present with an exam that would be consistent with an acute surgical abdomen at this time. Mild tenderness palpation in the midepigastric region. Musculoskeletal: Normal range of motion Neurologic: Alert and oriented to person, place and time. Skin: [place], warm and dry. Psychiatric: Normal mood and affect. Behavior is normal. Judgment and thought content normal. Nursing note and vital signs have been reviewed Diagnostics: CBC, CMP, lipase all within normal limits. Therapeutics: NSS x1 L, fentanyl IV, Zofran IV Assessment and plan: 36-year-old single who presents ER today with a history significant for alcohol use and pancreatitis with similar symptoms to her prior pancreatitis flareups. Patient ports that she has been drinking. Patient was given fentanyl IV fluids and Zofran and her labs were all checked. All of patient's labs are all within normal limits with a normal lipase. Patient feels significant improved after fentanyl. At this time it is unclear whether or not this pain is from gastritis versus pancreatitis without elevation in her lipase. I will discharge patient home with instructions to follow-up with her doctor to get assistance with alcohol use disorder. Reassessment at the time of disposition demonstrates that the patient is in no acute distress. The patient has remained stable throughout the entire ED visit and is without objective evidence for acute process requiring urgent intervention or hospitalization. The patient is stable for discharge, counseling is provided as documented above, discussed symptomatic treatment and specific conditions for return. I have spoken with the patient/caregiver and discussed todays findings, in addition to providing specific details for the plan of care. Questions are answered and there is agreement with the plan. Definitive disposition and diagnosis as appropriate pending reevaluation and review of above. Abdomen Pain Score (Numeric/FACES): 8 - Related Data Allergies Allergy/AdvReac Type Severity Reaction Status Date / Time No Known Allergies Allergy Verified 05/16/21 20:51 Home Meds: Home Meds Metoprolol Tartrate 50 mg PO BID 05/16/21 [History] Omeprazole Magnesium [Prilosec Otc] 20 mg PO DAILY #20 tablet. 05/16/21 [Rx] Past Medical History - Past Health History Medical/Surgical History: Denies Medical/Surgical History HEENT History: Reports: None Cardiovascular History: Reports: Blood Clots/VTE/DVT Other Cardiovascular History: blood clot on the liver, SVT Respiratory History: Reports: None Gastrointestinal History: Reports: Pancreatitis Genitourinary History: Reports: None HAUNTED HISTORY TOUR GUIDE History: Reports: None Musculoskeletal History: Reports: None Neurological History: Reports: None Psychiatric History: Reports: Addiction, Anxiety, Depression Other Psychiatric History: ETOH Endocrine/Metabolic History: Reports: None Insulin Pump Model and Outcome Analyst: N/A Hematologic History: Reports: None Immunologic History: Reports: None Oncologic (Cancer) History: Reports: None Dermatologic History: Reports: None - Infectious Disease History Infectious Disease History: Reports: Chicken Pox - Past Surgical History Head Surgeries/Procedures: Reports: None HEENT Surgical History: Reports: Tonsillectomy Cardiovascular Surgical History: Reports: None Respiratory Surgical History: Reports: None GI Surgical History: Reports: EGD Female Surgical History: Reports: None Endocrine Surgical History: Reports: None Neurological Surgical History: Reports: None Musculoskeletal Surgical History: Reports: None Oncologic Surgical History: Reports: None Dermatological Surgical History: Reports: None Social & Family History - Family History Family Medical History: No Pertinent Family History Cardiac: Reports: [place] - Caffeine Use Caffeine Use: Reports: None Other Caffeine Use: 2 Diet Cokes a day - Recreational Drug Use Recreational Drug Use: No - Living Situation & Occupation Living situation: Reports: Single Occupation: Unemployed ED ROS GENERAL - Review of Systems Review Of Systems: See Below ED EXAM, GENERAL - Physical Exam Exam: See Below Course - Vital Signs Last Recorded V/S: Last Vital Signs Temp 96.8 F L 05/16/21 20:50 Pulse 67 05/16/21 22:37 Resp 18 05/16/21 22:37 BP 127/79 05/16/21 22:37 Pulse Ox 97 05/16/21 22:37 - Orders/Labs/Meds Orders: Active Orders 24 hr Category Date Time Status Sodium Chloride 0.9% [Saline Flush] Med 05/16/21 21:04 Active 10 ml FLUSH ASDIRECTED PRN Sodium Chloride 0.9% [Saline Flush] Med 05/16/21 21:04 Active 2.5 ml FLUSH ASDIRECTED PRN Saline Lock Insert [OM.PC] Stat Oth 05/16/21 21:04 Ordered Medication Orders Sodium Chloride (Sodium Chloride 0.9% 10 Ml Syringe) 10 ml FLUSH ASDIRECTED PRN PRN Reason: Keep Vein Open Last Admin: 05/16/21 21:58 Dose: 10 ml Documented by: CLAUDIA Sodium Chloride (Sodium Chloride 0.9% 2.5 Ml Syringe) 2.5 ml FLUSH ASDIRECTED PRN PRN Reason: Keep Vein Open Last Admin: 05/16/21 21:57 Dose: 2.5 ml Documented by: CLAUDIA Labs: Laboratory Tests 05/16/21 05/16/21 05/16/21 Range/Units 21:48 21:48 22:01 WBC 10.37 (4.0-11.0) K/uL RBC 4.32 (4.30-5.90) M/uL Hgb 10.7 L (12.0-16.0) g/dL Hct 34.8 L (36.0-46.0) % MCV 80.6 (80.0-98.0) fL MCH 24.8 L (27.0-32.0) pg MCHC 30.7 L (31.0-37.0) g/dL RDW Std Deviation 56.9 (28.0-62.0) fl RDW Coeff of [place] 23 H (11.0-15.0) % Plt Count 309 (150-400) K/uL MPV 8.90 (7.40-12.00) fL Neut % (Auto) 45.3 L (48.0-80.0) % Lymph % (Auto) 41.7 H (16.0-40.0) % [place] % (Auto) 10.0 (0.0-15.0) % Eos % (Auto) 2.5 (0.0-7.0) % Baso % (Auto) 0.5 (0.0-1.5) % Neut # (Auto) 4.7 (1.4-5.7) K/uL Lymph # (Auto) 4.3 H (0.6-2.4) K/uL [place] # (Auto) 1.0 H (0.0-0.8) K/uL Eos # (Auto) 0.3 (0.0-0.7) K/uL Baso # (Auto) 0.1 (0.0-0.1) K/uL Nucleated RBC % 0.0 /100WBC Nucleated RBCs # 0 K/uL Sodium (136-145) mmol/L Potassium (3.5-5.1) mmol/L Chloride (98-107) mmol/L Carbon Dioxide (21.0-32.0) mmol/L BUN (7.0-18.0) mg/dL Creatinine (0.6-1.0) mg/dL Est Cr Clr Drug Dosing mL/min Estimated GFR (MDRD) ml/min Glucose (74-106) mg/dL Calcium (8.5-10.1) mg/dL Total Bilirubin (0.2-1.0) mg/dL AST (15-37) IU/L ALT (14-63) IU/L Alkaline Phosphatase (46-116) U/L Total Protein (6.4-8.2) g/dL Albumin (3.4-5.0) g/dL Globulin (2.6-4.0) g/dL Albumin/Globulin Ratio (0.9-1.6) Lipase (73-393) U/L Urine Color YELLOW Urine Appearance SLT CLOUDY Urine pH 6.5 (5.0-8.0) Ur Specific [place] 1.025 (1.001-1.035) Urine Protein NEGATIVE (NEGATIVE) mg/dL Urine Glucose (UA) NEGATIVE (NEGATIVE) mg/dL Urine Ketones NEGATIVE (NEGATIVE) mg/dL Urine Occult Blood NEGATIVE (NEGATIVE) Urine Nitrite NEGATIVE (NEGATIVE) Urine Bilirubin NEGATIVE (NEGATIVE) Urine Urobilinogen 0.2 (<2.0) EU/dL Ur Leukocyte Esterase NEGATIVE (NEGATIVE) Urine HCG, Qual NEGATIVE (NEGATIVE) 05/16/21 Range/Units 22:01 WBC (4.0-11.0) K/uL RBC (4.30-5.90) M/uL Hgb (12.0-16.0) g/dL Hct (36.0-46.0) % MCV (80.0-98.0) fL MCH (27.0-32.0) pg MCHC (31.0-37.0) g/dL RDW Std Deviation (28.0-62.0) fl RDW Coeff of [place] (11.0-15.0) % Plt Count (150-400) K/uL MPV (7.40-12.00) fL Neut % (Auto) (48.0-80.0) % Lymph % (Auto) (16.0-40.0) % [place] % (Auto) (0.0-15.0) % Eos % (Auto) (0.0-7.0) % Baso % (Auto) (0.0-1.5) % Neut # (Auto) (1.4-5.7) K/uL Lymph # (Auto) (0.6-2.4) K/uL [place] # (Auto) (0.0-0.8) K/uL Eos # (Auto) (0.0-0.7) K/uL Baso # (Auto) (0.0-0.1) K/uL Nucleated RBC % /100WBC Nucleated RBCs # K/uL Sodium 136 (136-145) mmol/L Potassium 4.2 (3.5-5.1) mmol/L Chloride 100 (98-107) mmol/L Carbon Dioxide 26.3 (21.0-32.0) mmol/L BUN 17 (7.0-18.0) mg/dL Creatinine 0.7 (0.6-1.0) mg/dL Est Cr Clr Drug Dosing 96.86 mL/min Estimated GFR (MDRD) > 60.0 ml/min Glucose 105 (74-106) mg/dL Calcium 9.3 (8.5-10.1) mg/dL Total Bilirubin 0.2 (0.2-1.0) mg/dL AST 19 (15-37) IU/L ALT 27 (14-63) IU/L Alkaline Phosphatase 108 (46-116) U/L Total Protein 7.7 (6.4-8.2) g/dL Albumin 4.0 (3.4-5.0) g/dL Globulin 3.7 (2.6-4.0) g/dL Albumin/Globulin Ratio 1.1 (0.9-1.6) Lipase 128 (73-393) U/L Urine Color Urine Appearance Urine pH (5.0-8.0) Ur Specific [place] (1.001-1.035) Urine Protein (NEGATIVE) mg/dL Urine Glucose (UA) (NEGATIVE) mg/dL Urine Ketones (NEGATIVE) mg/dL Urine Occult Blood (NEGATIVE) Urine Nitrite (NEGATIVE) Urine Bilirubin (NEGATIVE) Urine Urobilinogen (<2.0) EU/dL Ur Leukocyte Esterase (NEGATIVE) Urine HCG, Qual (NEGATIVE) Meds: Medications Generic Name Dose Route Start Last Admin Trade Name Freq PRN Reason Stop Dose Admin Sodium Chloride 10 ml 05/16/21 21:04 05/16/21 21:58 Sodium Chloride 0.9% 10 Ml Syringe FLUSH 10 ml ASDIRECTED PRN Administration Keep Vein Open Sodium Chloride 2.5 ml 05/16/21 21:04 05/16/21 21:57 Sodium Chloride 0.9% 2.5 Ml Syringe FLUSH 2.5 ml ASDIRECTED PRN Administration Keep Vein Open Discontinued Medications Generic Name Dose Route Start Last Admin Trade Name Jackie PRN Reason Stop Dose Admin Fentanyl 50 mcg 05/16/21 21:04 05/16/21 21:57 Fentanyl 50 Mcg/Ml Sdv IVPUSH 05/16/21 21:05 50 mcg ONETIME ONE Administration Sodium Chloride 1,000 mls @ 999 mls/hr 05/16/21 21:04 05/16/21 21:57 Normal Saline IV 05/16/21 22:04 999 mls/hr .Bolus ONE Administration Ondansetron HCl 4 mg 05/16/21 21:04 05/16/21 21:57 Ondansetron 4 Mg/2 Ml Sdv IVPUSH 05/16/21 21:05 4 mg ONETIME ONE Administration Departure - Departure Time of Disposition: 22:53 Disposition: Home, Self-Care 01 Condition: Good Clinical Impression: Abdominal pain, Gastritis, Alcohol use disorder - Discharge Information Instructions: Abdominal Pain, Adult, Gastritis, Adult, [id number], Alcohol Use Disorder Referrals: Jarrett Harper MD [Primary Care Provider] - Additional Instructions: Your seen and evaluated in ER today secondary to stomach pain that was concerning to you for alcohol induced pancreatitis. Your blood tests today were all within normal limits with a normal lipase. There is no indication of acute pancreatitis at this time based on your blood tests. Please make an appointment to see your family doctor to get assistance with her alcohol use disorder to avoid further episodes of similar pain in the future. Please try to abstain from alcohol as best as he can. Please return to the ED if you develop any new or concerning symptoms We have called in a prescription for Prilosec OTC to take as this would assist you in case this was secondary to gastritis from alcohol. The following information is given to patients seen in the emergency department who are being discharged to home. This information is to outline your options for follow-up care. We provide all patients seen in our emergency department with a follow-up referral. The need for follow-up, as well as the timing and circumstances, are variable depending upon the specifics of your emergency department visit. If you don't have a primary care physician on staff, we will provide you with a referral. We always advise you to contact your personal physician following an emergency department visit to inform them of the circumstance of the visit and for follow-up with them and/or the need for any referrals to a consulting specialist. The emergency department will also refer you to a specialist when appropriate. This referral assures that you have the opportunity for follow-up care with a specialist. All of these measure are taken in an effort to provide you with optimal care, which includes your follow-up. Under all circumstances we always encourage you to contact your private physician who remains a resource for coordinating your care. When calling for follow-up care, please make the office aware that this follow-up is from your recent emergency room visit. If for any reason you are refused follow-up, please contact the [facility] Emergency Department at and asked to speak to the emergency department charge nurse. [facility] [address] [place] [id number] [facility] [address] [place] [address] Sepsis Event Note (ED) - Evaluation Sepsis Screening Result: No Definite Risk - Focused Exam Vital Signs: Vital Signs Temp Pulse Resp BP Pulse Ox 05/16/21 22:37 67 18 127/79 97 05/16/21 22:06 67 18 127/76 97 05/16/21 20:50 96.8 F L 87 18 141/87 H 96 - My Orders Last 24 Hours: My Active Orders 05/16/21 21:04 Sodium Chloride 0.9% [Saline Flush] 10 ml FLUSH ASDIRECTED PRN Sodium Chloride 0.9% [Saline Flush] 2.5 ml FLUSH ASDIRECTED PRN Saline Lock Insert [OM.PC] Stat - Assessment/Plan Last 24 Hours: My Active Orders 05/16/21 21:04 Sodium Chloride 0.9% [Saline Flush] 10 ml FLUSH ASDIRECTED PRN Sodium Chloride 0.9% [Saline Flush] 2.5 ml FLUSH ASDIRECTED PRN Saline Lock Insert [OM.PC] Stat
== END 2021-05-16 23:03 | disposition home or self-care (01) ==
LOC: MW.ED 20:39
DX: K29.20 Alcoholic gastritis without bleeding (principal); F10.10 Alcohol abuse, uncomplicated; Z79.899 Other long term (current) drug therapy
CPT/HCPCS: 36415; 80053; 81003; 81025; 83690; 85025; 96374; 96375; 99284; J2405; J3010; J7030

== ENCOUNTER 2021-06-23 03:52 | Emergency (ER) | payer BC ==
--- NOTE | 2021-06-23 03:55 | EDM.PDOC ---
ED HPI GENERAL MEDICAL PROBLEM - General Stated Complaint: ABDOMINAL PAIN Time Seen by Provider: 06/23/21 03:55 Source of Information: Reports: Patient History Limitations: Reports: No Limitations - History of Present Illness INITIAL COMMENTS - FREE TEXT/NARRATIVE: 36-year-old female past medical history alcohol abuse, pancreatitis presents for abdominal pain. Patient states pain has been going on for the last couple of days worsening tonight. Pain is in midepigastric and bilateral upper abdomen. Associated with nausea but no vomiting. Patient does endorse drinking alcohol recently. Last drink was yesterday. She has experienced alcohol withdrawal before. Abdomen Pain Score (Numeric/FACES): 8 - Related Data Allergies Allergy/AdvReac Type Severity Reaction Status Date / Time No Known Allergies Allergy Verified 06/23/21 04:11 Home Meds: Home Meds . 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: Reports: None Musculoskeletal History: Reports: None Neurological History: Reports: None Psychiatric History: Reports: Addiction, Anxiety, Depression Other Psychiatric History: ETOH Endocrine/Metabolic History: Reports: None Insulin Pump Model and Loan Approver: N/A Hematologic History: Reports: None Immunologic History: Reports: None Oncologic (Cancer) History: Reports: None Dermatologic History: Reports: None - Infectious Disease History Infectious Disease History: Reports: Chicken Pox - Past Surgical History Head Surgeries/Procedures: Reports: None HEENT Surgical History: Reports: Tonsillectomy Cardiovascular Surgical History: Reports: None Respiratory Surgical History: Reports: None GI Surgical History: Reports: EGD Female Surgical History: Reports: None Endocrine Surgical History: Reports: None Neurological Surgical History: Reports: None Musculoskeletal Surgical History: Reports: None Oncologic Surgical History: Reports: None Dermatological Surgical History: Reports: None Social & Family History - Family History Family Medical History: No Pertinent Family History Cardiac: Reports: [place] - Caffeine Use Caffeine Use: Reports: None Other Caffeine Use: 2 Diet Cokes a day - Living Situation & Occupation Living situation: Reports: Single Occupation: Unemployed ED ROS GENERAL - Review of Systems Review Of Systems: Comprehensive ROS is negative, except as noted in HPI. ED EXAM, GENERAL - Physical Exam Exam: See Below Exam Limited By: No Limitations General Appearance: Alert, WD/WN, No Apparent Distress, Anxious Ears: Hearing Grossly Normal Throat/Mouth: Normal Voice, No Airway Compromise Head: Atraumatic, Normocephalic Respiratory/Chest: No Respiratory Distress, Lungs Clear, Normal Breath Sounds, No Accessory Muscle Use Cardiovascular: Normal Peripheral Pulses, Tachycardia GI/Abdominal: Soft, Non-Tender Extremities: Normal Inspection Neurological: Alert, Normal Cognition, Normal Gait Psychiatric: Normal Affect, Normal Mood Skin Exam: Warm, Dry, Intact, Normal Color Course - Vital Signs Last Recorded V/S: Last Vital Signs Temp 98.6 F 06/23/21 04:00 Pulse 97 06/23/21 05:15 Resp 16 06/23/21 05:15 BP 136/95 H 06/23/21 05:15 Pulse Ox 100 06/23/21 05:15 - Orders/Labs/Meds Orders: Active Orders 24 hr Category Date Time Status CORONAVIRUS COVID-19 DENISSE [MOLEC] Stat Lab 06/23/21 04:53 Received Saline Lock Insert [OM.PC] Stat Oth 06/23/21 03:58 Ordered Labs: Laboratory Tests 06/23/21 06/23/21 06/23/21 Range/Units 03:51 03:51 03:51 WBC 7.63 (4.0-11.0) K/uL RBC 4.33 (4.30-5.90) M/uL Hgb 12.1 (12.0-16.0) g/dL Hct 37.2 (36.0-46.0) % MCV 85.9 (80.0-98.0) fL MCH 27.9 (27.0-32.0) pg MCHC 32.5 (31.0-37.0) g/dL RDW Std Deviation 60.6 (28.0-62.0) fl RDW Coeff of [place] 20 H (11.0-15.0) % Plt Count 396 (150-400) K/uL MPV 8.40 (7.40-12.00) fL Neut % (Auto) 48.9 (48.0-80.0) % Lymph % (Auto) 39.3 (16.0-40.0) % [place] % (Auto) 9.8 (0.0-15.0) % Eos % (Auto) 1.6 (0.0-7.0) % Baso % (Auto) 0.4 (0.0-1.5) % Neut # (Auto) 3.7 (1.4-5.7) K/uL Lymph # (Auto) 3.0 H (0.6-2.4) K/uL [place] # (Auto) 0.8 (0.0-0.8) K/uL Eos # (Auto) 0.1 (0.0-0.7) K/uL Baso # (Auto) 0.0 (0.0-0.1) K/uL Nucleated RBC % 0.0 /100WBC Nucleated RBCs # 0 K/uL Sodium 138 (136-145) mmol/L Potassium 3.4 L (3.5-5.1) mmol/L Chloride 101 (98-107) mmol/L Carbon Dioxide 22.7 (21.0-32.0) mmol/L BUN 10 (7.0-18.0) mg/dL Creatinine 0.7 (0.6-1.0) mg/dL Est Cr Clr Drug Dosing 96.86 mL/min Estimated GFR (MDRD) > 60.0 ml/min Glucose 130 H (74-106) mg/dL Lactic Acid (0.4-2.0) mmol/L Calcium 9.0 (8.5-10.1) mg/dL Magnesium 1.5 L (1.8-2.4) mg/dL Total Bilirubin 0.1 L (0.2-1.0) mg/dL AST 22 (15-37) IU/L ALT 23 (14-63) IU/L Alkaline Phosphatase 115 (46-116) U/L Total Protein 7.4 (6.4-8.2) g/dL Albumin 3.9 (3.4-5.0) g/dL Globulin 3.5 (2.6-4.0) g/dL Albumin/Globulin Ratio 1.1 (0.9-1.6) Lipase 261 (73-393) U/L HCG, Qual NEGATIVE (NEG) Ethyl Alcohol < 3.0 mg/dL 06/23/21 Range/Units 04:11 WBC (4.0-11.0) K/uL RBC (4.30-5.90) M/uL Hgb (12.0-16.0) g/dL Hct (36.0-46.0) % MCV (80.0-98.0) fL MCH (27.0-32.0) pg MCHC (31.0-37.0) g/dL RDW Std Deviation (28.0-62.0) fl RDW Coeff of [place] (11.0-15.0) % Plt Count (150-400) K/uL MPV (7.40-12.00) fL Neut % (Auto) (48.0-80.0) % Lymph % (Auto) (16.0-40.0) % [place] % (Auto) (0.0-15.0) % Eos % (Auto) (0.0-7.0) % Baso % (Auto) (0.0-1.5) % Neut # (Auto) (1.4-5.7) K/uL Lymph # (Auto) (0.6-2.4) K/uL [place] # (Auto) (0.0-0.8) K/uL Eos # (Auto) (0.0-0.7) K/uL Baso # (Auto) (0.0-0.1) K/uL Nucleated RBC % /100WBC Nucleated RBCs # K/uL Sodium (136-145) mmol/L Potassium (3.5-5.1) mmol/L Chloride (98-107) mmol/L Carbon Dioxide (21.0-32.0) mmol/L BUN (7.0-18.0) mg/dL Creatinine (0.6-1.0) mg/dL Est Cr Clr Drug Dosing mL/min Estimated GFR (MDRD) ml/min Glucose (74-106) mg/dL Lactic Acid 1.1 (0.4-2.0) mmol/L Calcium (8.5-10.1) mg/dL Magnesium (1.8-2.4) mg/dL Total Bilirubin (0.2-1.0) mg/dL AST (15-37) IU/L ALT (14-63) IU/L Alkaline Phosphatase (46-116) U/L Total Protein (6.4-8.2) g/dL Albumin (3.4-5.0) g/dL Globulin (2.6-4.0) g/dL Albumin/Globulin Ratio (0.9-1.6) Lipase (73-393) U/L HCG, Qual (NEG) Ethyl Alcohol mg/dL Meds: Medications Discontinued Medications Generic Name Dose Route Start Last Admin Trade Name Freq PRN Reason Stop Dose Admin Alum [place]/Mag [place]/Simeth XS 0 ml 06/23/21 05:01 06/23/21 05:13 15 ml/ Lidocaine HCl 5 ml PO 06/23/21 05:02 20 each ONETIME ONE Administration Alum [place]/Mag [place]/Simeth XS 0 ml 06/23/21 05:04 06/23/21 05:15 15 ml/ Lidocaine HCl 5 ml PO 06/23/21 05:05 Not Given ONETIME ONE Famotidine 20 mg 06/23/21 03:58 06/23/21 04:06 Famotidine 20 Mg/2 Ml Sdv IVPUSH 06/23/21 03:59 20 mg ONETIME ONE Administration Famotidine 20 mg 06/23/21 05:01 Famotidine 20 Mg/2 Ml Sdv IVPUSH 06/23/21 05:02 ONETIME ONE Hydromorphone HCl 1 mg 06/23/21 04:55 06/23/21 04:58 Hydromorphone 1 Mg/Ml Syringe IVPUSH 06/23/21 04:56 1 mg ONETIME ONE Administration Sodium Chloride 1,000 mls @ 999 mls/hr 06/23/21 03:58 06/23/21 04:52 Normal Saline IV 06/23/21 04:58 999 mls/hr .Bolus ONE Administration Sodium Chloride 1,000 mls @ 999 mls/hr 06/23/21 03:59 06/23/21 04:03 Normal Saline IV 06/23/21 04:59 999 mls/hr .Bolus ONE Administration Lorazepam 1 mg 06/23/21 03:59 06/23/21 04:58 Lorazepam 2 Mg/Ml Sdv IVPUSH 06/23/21 04:00 1 mg ONETIME ONE Administration Morphine Sulfate 4 mg 06/23/21 03:58 06/23/21 04:05 Morphine 4 Mg/Ml Vial IVPUSH 06/23/21 03:59 4 mg ONETIME ONE Administration Ondansetron HCl 4 mg 06/23/21 03:58 06/23/21 04:03 Ondansetron 4 Mg/2 Ml Sdv IVPUSH 06/23/21 03:59 4 mg ONETIME ONE Administration - Re-Assessments/Exams Free Text/Narrative Re-Assessment/Exam: 06/23/21 04:01 We will get basic labs. Will treat patient's pain. Will give IV fluid bolus. Will give Ativan 1 mg. 06/23/21 05:05 Labs are unremarkable; lipase is normal. Will give GI cocktail 06/23/21 05:58 Patient is feeling much better. Will discharge with short course of analgesic opioid medication, risk-benefit discussed with patient. We will also give sucralfate. Patient notes that she has Prilosec at home which she will start taking. Departure - Departure Time of Disposition: 05:59 Disposition: Home, Self-Care 01 Condition: Good Clinical Impression: Gastritis Qualifiers: Gastritis type: unspecified gastritis Chronicity: acute Gastritis bleeding: without bleeding Qualified Code(s): K29.00 - Acute gastritis without bleeding - Discharge Information Instructions: Gastritis, Adult, [id number] Referrals: PCP,None [Primary Care Provider] - Additional Instructions: Your labs including your lipase level are all normal. This makes it much less likely that you are having pancreatitis and more likely that you are experiencing gastritis. I prescribed a couple different medications and sent to your pharmacy that can help. One of them is called sucralfate which helps coat the lining of the esophagus and the stomach and make it less painful. I would also like you to start taking your Prilosec or whenever you take at home for stomach acid. You should try to avoid alcohol as it will exacerbate things. I did send a short course of Percocet which is an opioid pain medicine. This medicine can help a lot with pain, however, it can be habit-forming so please be mindful that this is only to be used as needed. The following information is given to patients seen in the emergency department who are being discharged to home. This information is to outline your options for follow-up care. We provide all patients seen in our emergency department with a follow-up referral. The need for follow-up, as well as the timing and circumstances, are variable depending upon the specifics of your emergency department visit. If you don't have a primary care physician on staff, we will provide you with a referral. We always advise you to contact your personal physician following an emergency department visit to inform them of the circumstance of the visit and for follow-up with them and/or the need for any referrals to a consulting specialist. The emergency department will also refer you to a specialist when appropriate. This referral assures that you have the opportunity for follow-up care with a specialist. All of these measure are taken in an effort to provide you with optimal care, which includes your follow-up. Under all circumstances we always encourage you to contact your private physician who remains a resource for coordinating your care. When calling for follow-up care, please make the office aware that this follow-up is from your recent emergency room visit. If for any reason you are refused follow-up, please contact the [facility] Emergency Department at and asked to speak to the emergency department charge nurse. Please follow up with your primary care physician. If you do not have a primary care physician, see below: [facility] [address] [place] [address] [phone] My [facility] [address] [place] [id number] [facility] [address] [place] [id number] Sepsis Event Note (ED) - Focused Exam Vital Signs: Vital Signs Temp Pulse Resp BP Pulse Ox 06/23/21 05:15 97 16 136/95 H 100 06/23/21 04:00 98.6 F 124 H 16 138/89 98 - My Orders Last 24 Hours: My Active Orders 06/23/21 03:58 Saline Lock Insert [OM.PC] Stat 06/23/21 04:53 CORONAVIRUS COVID-19 DENISSE [MOLEC] Stat - Assessment/Plan Last 24 Hours: My Active Orders 06/23/21 03:58 Saline Lock Insert [OM.PC] Stat 06/23/21 04:53 CORONAVIRUS COVID-19 DENISSE [MOLEC] Stat
[2021-06-23] MEDS ORDERED: Sodium Chloride 0.9% 1,000 ML IV ONE ×2 (03:58→03:59)
[2021-06-23] MEDS ORDERED: Morphine 4 MG/ML VIAL IVPUSH ONE (03:58)
[2021-06-23] MEDS ORDERED: Famotidine 20 MG/2 ML SDV IVPUSH ONE ×2 (03:58→05:01)
[2021-06-23] MEDS ORDERED: Ondansetron 4 MG/2 ML SDV IVPUSH ONE (03:58)
[2021-06-23] MEDS ORDERED: LORazepam 2 MG/ML SDV IVPUSH ONE (03:59)
[2021-06-23 04:28] LABS: BLOOD UREA NITROGEN,BUN 10 mg/dL (7.0-18.0); CARBON DIOXIDE,CO2 22.7 mmol/L (21.0-32.0); CHLORIDE,CL 101 mmol/L (98-107); LIPASE 261 U/L (73-393); POTASSIUM,K 3.4 mmol/L (3.5-5.1); SODIUM,NA 138 mmol/L (136-145)
[2021-06-23 04:43] LABS: GLUCOSE RANDOM 130 mg/dL (74-106)
[2021-06-23] MEDS ORDERED: HYDROmorphone 1 MG/ML Syringe IVPUSH ONE (04:55)
[2021-06-23] MEDS ORDERED: Alum Hydro/Mag Hydro/Simeth XS 15 ML, Lidocaine 2% 5 ML PO ONE ×4 (05:01→05:04)
[2021-06-23] MEDS ORDERED: Aluminum Hydroxide/Magnesium Hydroxide/Simethicone XS Susp 30 ML Cup ONE (05:09)
== END 2021-06-23 06:16 | disposition home or self-care (01) ==
LOC: MW.ED 03:52
DX: K29.00 Acute gastritis without bleeding (principal); Z20.822 Contact with and (suspected) exposure to COVID-19
CPT/HCPCS: 36415; 80053; 80307; 83605; 83690; 83735; 84703; 85025; 87635; 96374; 96375; 99284; A9270; J1170; J2060; J2270; J2405; J3490; J7030; U0002

== ENCOUNTER 2021-06-26 07:55 | Inpatient (IN) | payer BC ==
--- NOTE | 2021-06-26 08:24 | EDM.PDOC ---
ED HPI GENERAL MEDICAL PROBLEM - General Chief Complaint: Abdominal Pain Stated Complaint: ABDOMINAL PAIN Time Seen by Provider: 06/26/21 08:00 - History of Present Illness INITIAL COMMENTS - FREE TEXT/NARRATIVE: History of present illness: [] Patient has severe abdominal pain and nausea. She has it for 3 days. 2 days ago she was seen here and diagnosed with nonspecific abdominal pain. It feels like her pancreatitis in the past. Her lipase was normal 2 days ago she denies . The patient has nausea without vomiting. No change in bowel or bladder habits. No fever and chills. Patient has a history of alcohol abuse. She gets oxycodone 60 tabs every [address] Harper in [place]. She says that is for occasional "flareup" The patient says she does not take the oxycodone very often only when she has a flareup and she has been taking it during this episode but not getting better. Review of systems: As per history of present illness and below otherwise all systems reviewed and negative. Past medical history: As per history of present illness and as reviewed below otherwise noncontributory. Surgical history: As per history of present illness and as reviewed below otherwise noncontributory. Social history: No reported history of drug or alcohol abuse. Family history: As per history of present illness and as reviewed below otherwise noncontributory. Physical exam: Constitutional - well developed, well-nourished and in no acute distress HEENT - normocephalic, no evidence of trauma - external nose and mouth normal - no mass in neck and no JVD - mucosae moist EYES - full EOM, PERRL, no icterus - no evidence of inflammation, injection, or drainage Respiratory - no respiratory distress, equal bilateral expansion, lungs clear to auscultation and no abnormal lung sounds Cardiovascular - Regular Rhythm with S1 and S2 appreciated and no murmur, gallop or rub. GI -tender epigastrium left upper and right upper quadrants. Abdomen soft without distension or organomegaly - normal bowel sounds - no guard or rebound Musculoskeletal no gross deformity of long bones or joints - no tenderness, swelling or edema Neurologic - Alert and oriented times four - CN II-XII grossly intact - motor s ensory and coordination symmetrically normal Psychiatric - appropriate mood and affect with normal thought content Hematologic - No petechiae or purpura - mucosa appropriate color and sclera not pale - normal nail bed color and refill Integument - no rash or evidence of trauma - normal turgor Diagnostics: [] Therapeutics: [] Impression: [] Plan: [] Definitive disposition and diagnosis as appropriate pending reevaluation and review of above. Abdomen Pain Score (Numeric/FACES): 9 - Related Data Allergies Allergy/AdvReac Type Severity Reaction Status Date / Time No Known Allergies Allergy Verified 06/26/21 08:18 Home Meds: Home Meds Acetaminophen/oxyCODONE [Percocet 325-5 MG] 1 each PO Q6H PRN #12 tab 06/23/21 [Rx] Sucralfate 1 gm PO QID #1 bottle 06/23/21 [Rx] Past Medical History - Past Health History Medical/Surgical History: Denies Medical/Surgical History HEENT History: Reports: None Cardiovascular History: Reports: Blood Clots/VTE/DVT Other Cardiovascular History: blood clot on the liver, SVT Respiratory History: Reports: None Gastrointestinal History: Reports: Pancreatitis Genitourinary History: Reports: None 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 PACKER 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: Reports: None Musculoskeletal History: Reports: None Neurological History: Reports: None Psychiatric History: Reports: Addiction, Anxiety, Depression Other Psychiatric History: ETOH Endocrine/Metabolic History: Reports: None Insulin Pump Model and Medical Sales Consultant: N/A Hematologic History: Reports: None Immunologic History: Reports: None Oncologic (Cancer) History: Reports: None Dermatologic History: Reports: None - Infectious Disease History Infectious Disease History: Reports: Chicken Pox - Past Surgical History Head Surgeries/Procedures: Reports: None HEENT Surgical History: Reports: Tonsillectomy Cardiovascular Surgical History: Reports: None Respiratory Surgical History: Reports: None GI Surgical History: Reports: EGD Female Surgical History: Reports: None Endocrine Surgical History: Reports: None Neurological Surgical History: Reports: None Musculoskeletal Surgical History: Reports: None Oncologic Surgical History: Reports: None Dermatological Surgical History: Reports: None Social & Family History - Family History Family Medical History: No Pertinent Family History Cardiac: Reports: [place] - Caffeine Use Caffeine Use: Reports: None Other Caffeine Use: 2 Diet Cokes a day - Living Situation & Occupation Living situation: Reports: Single Occupation: Unemployed ED ROS GENERAL - Review of Systems Review Of Systems: Comprehensive ROS is negative, except as noted in HPI. ED EXAM, GENERAL - Physical Exam Exam: See Below Free Text/Narrative:: My physical exam is in the HPI Course - Vital Signs Last Recorded V/S: Last Vital Signs Temp 36.0 C L 06/26/21 08:05 Pulse 84 06/26/21 08:05 Resp 18 06/26/21 08:05 BP 130/75 06/26/21 08:05 Pulse Ox 97 06/26/21 08:05 - Orders/Labs/Meds Orders: Active Orders 24 hr Category Date Time Status Admission Status [Patient Status] [ADT] Stat ADT 06/26/21 11:27 Ordered Sodium Chloride 0.9% [Saline Flush] Med 06/26/21 08:25 Active 10 ml FLUSH ASDIRECTED PRN Sodium Chloride 0.9% [Saline Flush] Med 06/26/21 08:25 Active 2.5 ml FLUSH ASDIRECTED PRN Saline Lock Insert [OM.PC] Stat Oth 06/26/21 08:25 Ordered Medication Orders Sodium Chloride (Sodium Chloride 0.9% 10 Ml Syringe) 10 ml FLUSH ASDIRECTED PRN PRN Reason: Keep Vein Open Sodium Chloride (Sodium Chloride 0.9% 2.5 Ml Syringe) 2.5 ml FLUSH ASDIRECTED PRN PRN Reason: Keep Vein Open Labs: Laboratory Tests 06/26/21 06/26/21 06/26/21 Range/Units 08:00 08:25 08:25 WBC 11.83 H (4.0-11.0) K/uL RBC 4.08 L (4.30-5.90) M/uL Hgb 11.4 L (12.0-16.0) g/dL Hct 35.4 L (36.0-46.0) % MCV 86.8 (80.0-98.0) fL MCH 27.9 (27.0-32.0) pg MCHC 32.2 (31.0-37.0) g/dL RDW Std Deviation 62.2 H (28.0-62.0) fl RDW Coeff of [place] 20 H (11.0-15.0) % Plt Count 396 (150-400) K/uL MPV 8.70 (7.40-12.00) fL Neut % (Auto) 69.2 (48.0-80.0) % Lymph % (Auto) 19.3 (16.0-40.0) % [place] % (Auto) 9.0 (0.0-15.0) % Eos % (Auto) 2.2 (0.0-7.0) % Baso % (Auto) 0.3 (0.0-1.5) % Neut # (Auto) 8.2 H (1.4-5.7) K/uL Lymph # (Auto) 2.3 (0.6-2.4) K/uL [place] # (Auto) 1.1 H (0.0-0.8) K/uL Eos # (Auto) 0.3 (0.0-0.7) K/uL Baso # (Auto) 0.0 (0.0-0.1) K/uL Nucleated RBC % 0.0 /100WBC Nucleated RBCs # 0 K/uL Sodium 136 (136-145) mmol/L Potassium 4.5 (3.5-5.1) mmol/L Chloride 102 (98-107) mmol/L Carbon Dioxide 25.1 (21.0-32.0) mmol/L BUN 14 (7.0-18.0) mg/dL Creatinine 0.8 (0.6-1.0) mg/dL Est Cr Clr Drug Dosing 84.76 mL/min Estimated GFR (MDRD) > 60.0 ml/min Glucose 119 H (74-106) mg/dL Calcium 8.7 (8.5-10.1) mg/dL Total Bilirubin 0.1 L (0.2-1.0) mg/dL AST 18 (15-37) IU/L ALT 19 (14-63) IU/L Alkaline Phosphatase 111 (46-116) U/L Total Protein 7.3 (6.4-8.2) g/dL Albumin 3.8 (3.4-5.0) g/dL Globulin 3.5 (2.6-4.0) g/dL Albumin/Globulin Ratio 1.1 (0.9-1.6) Lipase 336 (73-393) U/L Urine Color YELLOW Urine Appearance SLT CLOUDY Urine pH 6.0 (5.0-8.0) Ur Specific [place] >= 1.030 (1.001-1.035) Urine Protein NEGATIVE (NEGATIVE) mg/dL Urine Glucose (UA) NEGATIVE (NEGATIVE) mg/dL Urine Ketones NEGATIVE (NEGATIVE) mg/dL Urine Occult Blood SMALL H (NEGATIVE) Urine Nitrite NEGATIVE (NEGATIVE) Urine Bilirubin NEGATIVE (NEGATIVE) Urine Urobilinogen 0.2 (<2.0) EU/dL Ur Leukocyte Esterase NEGATIVE (NEGATIVE) Urine RBC 2-3 (0-2/HPF) Urine WBC 0-1 (0-5/HPF) Ur Epithelial Cells OCCASIONAL (NONE-FEW) Urine Bacteria FEW (NEGATIVE) Meds: Medications Generic Name Dose Route Start Last Admin Trade Name Freq PRN Reason Stop Dose Admin Sodium Chloride 10 ml 06/26/21 08:25 Sodium Chloride 0.9% 10 Ml Syringe FLUSH ASDIRECTED PRN Keep Vein Open Sodium Chloride 2.5 ml 06/26/21 08:25 Sodium Chloride 0.9% 2.5 Ml Syringe FLUSH ASDIRECTED PRN Keep Vein Open Discontinued Medications Generic Name Dose Route Start Last Admin Trade Name Freq PRN Reason Stop Dose Admin Hydromorphone HCl 1 mg 06/26/21 08:25 06/26/21 08:30 Hydromorphone 1 Mg/Ml Syringe IVPUSH 06/26/21 08:26 1 mg ONETIME ONE Administration Hydromorphone HCl 1 mg 06/26/21 10:02 06/26/21 10:07 Hydromorphone 2 Mg/Ml Syringe IVPUSH 06/26/21 10:03 Not Given ONETIME ONE Hydromorphone HCl 1 mg 06/26/21 10:06 06/26/21 10:15 Hydromorphone 1 Mg/Ml Syringe IVPUSH 06/26/21 10:07 1 mg ONETIME ONE Administration Iopamidol 100 ml 06/26/21 10:06 06/26/21 10:07 Iopamidol 755 Mg/Ml 500 Ml Multipack Bottle IVPUSH 06/26/21 10:07 100 ml ONETIME STA Administration Ondansetron HCl 4 mg 06/26/21 08:25 06/26/21 08:31 Ondansetron 4 Mg/2 Ml Sdv IVPUSH 06/26/21 08:26 4 mg ONETIME ONE Administration - Re-Assessments/Exams Free Text/Narrative Re-Assessment/Exam: 06/26/21 11:[address] Isaacs and admitted Departure - Departure Time of Disposition: 11:29 Disposition: Admitted As Inpatient 67 Condition: Good Clinical Impression: Acute pancreatitis Qualifiers: Pancreatitis type: alcohol induced Acute pancreatitis complication: unspecified Qualified Code(s): K85.20 - Alcohol induced acute pancreatitis without necrosis or infection - Discharge Information Instructions: Acute Pancreatitis, [id number] Referrals: PCP,None [Primary Care Provider] - Forms: ED Department Discharge Sepsis Event Note (ED) - Evaluation Sepsis Screening Result: No Definite Risk - Focused Exam Vital Signs: Vital Signs Temp Pulse Resp BP Pulse Ox 06/26/21 08:05 36.0 C L 84 18 130/75 97 - My Orders Last 24 Hours: My Active Orders 06/26/21 08:25 Sodium Chloride 0.9% [Saline Flush] 10 ml FLUSH ASDIRECTED PRN Sodium Chloride 0.9% [Saline Flush] 2.5 ml FLUSH ASDIRECTED PRN Saline Lock Insert [OM.PC] Stat 06/26/21 11:27 Admission Status [Patient Status] [ADT] Stat - Assessment/Plan Last 24 Hours: My Active Orders 06/26/21 08:25 Sodium Chloride 0.9% [Saline Flush] 10 ml FLUSH ASDIRECTED PRN Sodium Chloride 0.9% [Saline Flush] 2.5 ml FLUSH ASDIRECTED PRN Saline Lock Insert [OM.PC] Stat 06/26/21 11:27 Admission Status [Patient Status] [ADT] Stat
[2021-06-26] MEDS ORDERED: Sodium Chloride 0.9% 2.5 ML Syringe FLUSH PRN ×2 (08:25→12:52)
[2021-06-26] MEDS ORDERED: Sodium Chloride 0.9% 10 ML Syringe FLUSH PRN (08:25)
[2021-06-26] MEDS ORDERED: Ondansetron 4 MG/2 ML SDV IVPUSH ONE (08:25)
[2021-06-26] MEDS ORDERED: HYDROmorphone 1 MG/ML Syringe IVPUSH ONE ×2 (08:25→10:06)
[2021-06-26 09:16] LABS: BLOOD UREA NITROGEN,BUN 14 mg/dL (7.0-18.0); CARBON DIOXIDE,CO2 25.1 mmol/L (21.0-32.0); CHLORIDE,CL 102 mmol/L (98-107); GLUCOSE RANDOM 119 mg/dL (74-106); LIPASE 336 U/L (73-393); POTASSIUM,K 4.5 mmol/L (3.5-5.1); SODIUM,NA 136 mmol/L (136-145)
[2021-06-26] MEDS ORDERED: HYDROmorphone 2 MG/ML Syringe IVPUSH ONE (10:02)
[2021-06-26] MEDS ORDERED: Iopamidol 755 MG/ML 500 ML Multipack Bottle IVPUSH STA (10:06)
--- NOTE | 2021-06-26 10:30 | CT ---
INDICATION: Right upper quadrant pain COMPARISON: A similar examination dated December 08, 2020 TECHNIQUE: CT examination of the abdomen and pelvis was performed following the uneventful intravenous administration of 100 cc of Isovue 370. Thin section axial images were obtained from the lung bases through the pubic symphysis. Oral contrast was not administered. Please note that all CT scans at this facility use dose modulation, iterative reconstruction, and/or weight-based dosing when appropriate to reduce radiation dose to as low as reasonably achievable. FINDINGS: LUNG BASES: The lung bases as visualized appear normal.The heart size is normal at the lung bases. LIVER/BILIARY SYSTEM:Mildly enlarged liver. Fatty infiltrated. No focal mass. No biliary ductal dilatation. Gallbladder as visualized appears normal. ADRENALS: Normal KIDNEYS, URETERS and BLADDER:The kidneys appear normal. No visible mass, calculus or hydronephrosis. The ureters and bladder as visualized appear normal. SPLEEN:Normal appearance. PANCREAS: The pancreas is abnormal. There are calcifications diffusely but most affecting the pancreatic head. There is mixed attenuation in the region of the pancreatic head with surrounding inflammatory change in the retroperitoneum, the lesser sac and the pancreaticoduodenal groove probably due to acute on chronic pancreatitis. 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 The thrombosis was present previously RETROPERITONEUM and MESENTERY: Abnormal near the pancreatic head as discussed above GASTROINTESTINAL SYSTEM: There is no evidence of diverticulitis, colitis, mechanical obstruction, or appendicitis. The small bowel as visualized appears normal. PELVIS: No mass, adenopathy or free fluid. OSSEOUS STRUCTURES and ABDOMINAL WALL: There is an age-appropriate appearance of the osseous structures.No significant abdominal wall defect. OTHER: No free fluid or free air. IMPRESSION: 1. There are findings suggesting acute on chronic pancreatitis. The acutely inflamed area appears to be at the pancreatic head and at the pancreaticoduodenal groove. No evidence of collection, pseudocyst or necrosis of the pancreas. 2. 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 3. Other incidental nonacute appearing findings as discussed above Please note that all CT scans at this facility use dose modulation, iterative reconstruction, and/or weight-based dosing when appropriate to reduce radiation dose to as low as reasonably achievable. Dictated by Frankie Schwarz MD @ 06/26/2021 10:28:41 AM (Electronically Signed)
--- NOTE | 2021-06-26 13:02 | PCM.HP.2 ---
H&P History of Present Illness - General Date of Service: 06/26/21 Admit Problem/Dx: Admission Diagnosis/Problem Admission Diagnosis/Problem Abdominal pain Source of Information: Patient History Limitations: Reports: No Limitations - History of Present Illness Initial Comments - Free Text/Narative: This 36-year old female with past medical history of acute on chronic alcoholic pancreatitis, alcohol abuse, depression, and chronic thrombosis of SMV presented to the ER with 3 days of right abdominal pain. She reports that she recently broke things off with her significant other of over 6 years and drink alcohol over the holidays. Since then she has been having worsening abdominal pain nausea. She denies any diarrhea. She denies any fevers chills or upper respiratory symptoms. Denies any chest pain or shortness of breath. In the ER mild leukocytosis noted at 11,830 hemoglobin 11.4. CMP revealed sodium 136 potassium 4.5 BUN 14 creatinine 0.8 bilirubin 0.1 AST 18 ALT 19 ALK Phos 111. Lipase 336. UA negative Covid swab negative. CT of the abdomen reveals findings suggesting acute on chronic pancreatitis acutely inflamed area appears to be a pancreatic head and at the pancreatic duodenal groove. No evidence of collection pseudocyst or necrosis of the pancreas. 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 In the ER patient was given Dilaudid for pain management along with Zofran. Patient will be admitted inpatient for acute on chronic alcoholic pancreatitis. Abdomen Pain Score (Numeric/FACES): 9 - Related Data Allergies/Adverse Reactions: Allergies Allergy/AdvReac Type Severity Reaction Status Date / Time No Known Allergies Allergy Verified 06/26/21 14:05 Home Medications: Home Meds Acetaminophen/oxyCODONE [Percocet 325-5 MG] 1 each PO Q6H PRN #12 tab 06/23/21 [Rx] Sucralfate 1 gm PO QID #1 bottle 06/23/21 [Rx] Past Medical History - Past Health History Medical/Surgical History: Denies Medical/Surgical History HEENT History: Reports: None Cardiovascular History: Reports: Blood Clots/VTE/DVT Other Cardiovascular History: blood clot on the liver, SVT Respiratory History: Reports: None Gastrointestinal History: Reports: Pancreatitis Genitourinary History: Reports: None 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: 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: 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 Musculoskeletal History: Reports: None Neurological History: Reports: None Psychiatric History: Reports: Addiction, Anxiety, Depression Other Psychiatric History: ETOH Endocrine/Metabolic History: Reports: None Insulin Pump Model and Plans Examiner: N/A Hematologic History: Reports: None Immunologic History: Reports: None Oncologic (Cancer) History: Reports: None Dermatologic History: Reports: None - Infectious Disease History Infectious Disease History: Reports: Chicken Pox - Past Surgical History Head Surgeries/Procedures: Reports: None HEENT Surgical History: Reports: Tonsillectomy Cardiovascular Surgical History: Reports: None Respiratory Surgical History: Reports: None GI Surgical History: Reports: EGD Female Surgical History: Reports: None Endocrine Surgical History: Reports: None Neurological Surgical History: Reports: None Musculoskeletal Surgical History: Reports: None Oncologic Surgical History: Reports: None Dermatological Surgical History: Reports: None Social & Family History - Family History Family Medical History: No Pertinent Family History Cardiac: Reports: [place] - Caffeine Use Caffeine Use: Reports: None Other Caffeine Use: 2 Diet Cokes a day - Recreational Drug Use Recreational Drug Use: No - Living Situation & Occupation Living situation: Reports: Single Occupation: Unemployed H&P Review of Systems - Review of Systems: Review Of Systems: See Below General: Reports: No Symptoms. Denies: Fever, Chills, Malaise HEENT: Reports: No Symptoms Pulmonary: Reports: No Symptoms Cardiovascular: Reports: No Symptoms Gastrointestinal: Reports: Abdominal Pain, Decreased Appetite, Nausea. Denies: Black Stool, Bloody Stool, Diarrhea, Vomiting Genitourinary: Reports: No Symptoms. Denies: Dysuria Musculoskeletal: Reports: No Symptoms Skin: Reports: No Symptoms Psychiatric: Reports: No Symptoms Neurological: Reports: No Symptoms Hematologic/Lymphatic: Reports: No Symptoms Immunologic: Reports: No Symptoms Exam - Exam Exam: See Below - Vital Signs Vital Signs: Last Vital Signs Temp 97.3 F 06/26/21 11:36 Pulse 68 06/26/21 11:36 Resp 18 06/26/21 11:36 BP 111/86 06/26/21 11:36 Pulse Ox 97 06/26/21 11:36 Weight: 70.307 kg - Exam General: Alert, Oriented, Cooperative HEENT: Conjunctiva Clear, Mucosa Moist & [place], Posterior Pharynx Clear Lungs: Clear to Auscultation, Normal Respiratory Effort Cardiovascular: Regular Rate, Regular Rhythm GI/Abdominal Exam: Normal Bowel Sounds, Soft, Tender Back Exam: Normal Inspection, Full Range of Motion Extremities: Normal Inspection, Normal Range of Motion, Non-Tender, No Pedal Edema Skin: Warm, Dry Neuro Extensive - Mental Status: Alert, Oriented x3, Normal Mood/Affect Neuro Extensive - Motor, Sensory, Reflexes: CN II-XII Intact Psychiatric: Alert, Normal Affect, Normal Mood - Patient Data Lab Results Last 24 hrs: Laboratory Results - last 24 hr 06/26/21 06/26/21 06/26/21 Range/Units 08:00 08:25 08:25 WBC 11.83 H (4.0-11.0) K/uL RBC 4.08 L (4.30-5.90) M/uL Hgb 11.4 L (12.0-16.0) g/dL Hct 35.4 L (36.0-46.0) % MCV 86.8 (80.0-98.0) fL MCH 27.9 (27.0-32.0) pg MCHC 32.2 (31.0-37.0) g/dL RDW Std Deviation 62.2 H (28.0-62.0) fl RDW Coeff of [place] 20 H (11.0-15.0) % Plt Count 396 (150-400) K/uL MPV 8.70 (7.40-12.00) fL Neut % (Auto) 69.2 (48.0-80.0) % Lymph % (Auto) 19.3 (16.0-40.0) % [place] % (Auto) 9.0 (0.0-15.0) % Eos % (Auto) 2.2 (0.0-7.0) % Baso % (Auto) 0.3 (0.0-1.5) % Neut # (Auto) 8.2 H (1.4-5.7) K/uL Lymph # (Auto) 2.3 (0.6-2.4) K/uL [place] # (Auto) 1.1 H (0.0-0.8) K/uL Eos # (Auto) 0.3 (0.0-0.7) K/uL Baso # (Auto) 0.0 (0.0-0.1) K/uL Nucleated RBC % 0.0 /100WBC Nucleated RBCs # 0 K/uL Sodium 136 (136-145) mmol/L Potassium 4.5 (3.5-5.1) mmol/L Chloride 102 (98-107) mmol/L Carbon Dioxide 25.1 (21.0-32.0) mmol/L BUN 14 (7.0-18.0) mg/dL Creatinine 0.8 (0.6-1.0) mg/dL Est Cr Clr Drug Dosing 84.76 mL/min Estimated GFR (MDRD) > 60.0 ml/min Glucose 119 H (74-106) mg/dL Calcium 8.7 (8.5-10.1) mg/dL Total Bilirubin 0.1 L (0.2-1.0) mg/dL AST 18 (15-37) IU/L ALT 19 (14-63) IU/L Alkaline Phosphatase 111 (46-116) U/L Total Protein 7.3 (6.4-8.2) g/dL Albumin 3.8 (3.4-5.0) g/dL Globulin 3.5 (2.6-4.0) g/dL Albumin/Globulin Ratio 1.1 (0.9-1.6) Lipase 336 (73-393) U/L Urine Color YELLOW Urine Appearance SLT CLOUDY Urine pH 6.0 (5.0-8.0) Ur Specific [place] >= 1.030 (1.001-1.035) Urine Protein NEGATIVE (NEGATIVE) mg/dL Urine Glucose (UA) NEGATIVE (NEGATIVE) mg/dL Urine Ketones NEGATIVE (NEGATIVE) mg/dL Urine Occult Blood SMALL H (NEGATIVE) Urine Nitrite NEGATIVE (NEGATIVE) Urine Bilirubin NEGATIVE (NEGATIVE) Urine Urobilinogen 0.2 (<2.0) EU/dL Ur Leukocyte Esterase NEGATIVE (NEGATIVE) Urine RBC 2-3 (0-2/HPF) Urine WBC 0-1 (0-5/HPF) Ur Epithelial Cells OCCASIONAL (NONE-FEW) Urine Bacteria FEW (NEGATIVE) SARS-CoV-2 RNA (DENISSE) (NEGATIVE) 06/26/21 Range/Units 11:30 WBC (4.0-11.0) K/uL RBC (4.30-5.90) M/uL Hgb (12.0-16.0) g/dL Hct (36.0-46.0) % MCV (80.0-98.0) fL MCH (27.0-32.0) pg MCHC (31.0-37.0) g/dL RDW Std Deviation (28.0-62.0) fl RDW Coeff of [place] (11.0-15.0) % Plt Count (150-400) K/uL MPV (7.40-12.00) fL Neut % (Auto) (48.0-80.0) % Lymph % (Auto) (16.0-40.0) % [place] % (Auto) (0.0-15.0) % Eos % (Auto) (0.0-7.0) % Baso % (Auto) (0.0-1.5) % Neut # (Auto) (1.4-5.7) K/uL Lymph # (Auto) (0.6-2.4) K/uL [place] # (Auto) (0.0-0.8) K/uL Eos # (Auto) (0.0-0.7) K/uL Baso # (Auto) (0.0-0.1) K/uL Nucleated RBC % /100WBC Nucleated RBCs # K/uL Sodium (136-145) mmol/L Potassium (3.5-5.1) mmol/L Chloride (98-107) mmol/L Carbon Dioxide (21.0-32.0) mmol/L BUN (7.0-18.0) mg/dL Creatinine (0.6-1.0) mg/dL Est Cr Clr Drug Dosing mL/min Estimated GFR (MDRD) ml/min Glucose (74-106) mg/dL Calcium (8.5-10.1) mg/dL Total Bilirubin (0.2-1.0) mg/dL AST (15-37) IU/L ALT (14-63) IU/L Alkaline Phosphatase (46-116) U/L Total Protein (6.4-8.2) g/dL Albumin (3.4-5.0) g/dL Globulin (2.6-4.0) g/dL Albumin/Globulin Ratio (0.9-1.6) Lipase (73-393) U/L Urine Color Urine Appearance Urine pH (5.0-8.0) Ur Specific [place] (1.001-1.035) Urine Protein (NEGATIVE) mg/dL Urine Glucose (UA) (NEGATIVE) mg/dL Urine Ketones (NEGATIVE) mg/dL Urine Occult Blood (NEGATIVE) Urine Nitrite (NEGATIVE) Urine Bilirubin (NEGATIVE) Urine Urobilinogen (<2.0) EU/dL Ur Leukocyte Esterase (NEGATIVE) Urine RBC (0-2/HPF) Urine WBC (0-5/HPF) Ur Epithelial Cells (NONE-FEW) Urine Bacteria (NEGATIVE) SARS-CoV-2 RNA (DENISSE) NEGATIVE (NEGATIVE) Result Diagrams: 06/26/21 08:25 06/26/21 08:25 Sepsis Event Note - Evaluation Sepsis Screening Result: No Definite Risk - Focused Exam Vital Signs: Vital Signs Temp Pulse Resp BP Pulse Ox 06/26/21 11:36 97.3 F 68 18 111/86 97 06/26/21 08:05 96.8 F L 84 18 130/75 97 - Problem List (1) Acute on chronic pancreatitis SNOMED Code(s): 900474045 ICD Code: K85.90 - ACUTE PANCREATITIS WITHOUT NECROSIS OR INFECTION, UNSP; K86.1 - OTHER CHRONIC PANCREATITIS Status: Acute Current Visit: No (2) Alcohol use disorder SNOMED Code(s): 8290794 ICD Code: VXV1087 - Status: Chronic Current Visit: No (3) Superior mesenteric vein thrombosis SNOMED Code(s): 555731406 ICD Code: I81 - PORTAL VEIN THROMBOSIS Status: Chronic Current Visit: No Problem List Initiated/Reviewed/Updated: Yes Orders Last 24hrs: Active Orders 24 hr Category Date Time Status Admission Status [Patient Status] [ADT] Stat ADT 06/26/21 11:27 Active Intake and Output [RC] QSHIFT Care 06/26/21 12:53 Ordered Oxygen Therapy [RC] PRN Care 06/26/21 12:52 Ordered Up With Assistance [RC] ASDIRECTED Care 06/26/21 12:52 Ordered VTE/DVT Education [RC] PER UNIT ROUTINE Care 06/26/21 12:52 Ordered Vital Signs [RC] Q4H Care 06/26/21 12:52 Ordered CBC WITH AUTO DIFF [HEME] AM Lab 06/27/21 05:11 Ordered COMPREHENSIVE METABOLIC PN,CMP [CHEM] AM Lab 06/27/21 05:11 Ordered MAGNESIUM [CHEM] AM Lab 06/27/21 05:11 Ordered Enoxaparin [Lovenox] Med 06/26/21 13:00 Ordered 40 mg SUBCUT Q24H HYDROmorphone [Dilaudid] Med 06/26/21 12:52 Ordered 1 mg IVPUSH Q2H PRN LORazepam [Ativan] Med 06/26/21 12:52 Ordered See Protocol IV Q4H PRN Lactated Ringers [Ringers, Lactated] 1,000 ml Med 06/26/21 13:00 Ordered IV Q6H Ondansetron [Zofran] Med 06/26/21 12:52 Ordered 4 mg IVPUSH Q4H PRN Sodium Chloride 0.9% [Saline Flush] Med 06/26/21 08:25 Stop Req 10 ml FLUSH ASDIRECTED PRN Sodium Chloride 0.9% [Saline Flush] Med 06/26/21 08:25 Stop Req 2.5 ml FLUSH ASDIRECTED PRN Sodium Chloride 0.9% [Saline Flush] Med 06/26/21 12:52 Ordered 2.5 ml FLUSH ASDIRECTED PRN Saline Lock Insert [OM.PC] Routine Oth 06/26/21 12:52 Ordered Resuscitation Status Routine Resus Stat 06/26/21 12:52 Ordered Assessment/Plan Comment:: This 36-year-old female admitted with acute on chronic pancreatitis 1. Acute on chronic pancreatitis N.p.o. Dilaudid 1 mg every 2 hours IV as needed pain LR 150 mL/h Zofran as needed Continue to encourage sobriety to prevent recurrence of pancreatitis. 2. History of alcohol abuse Thiamine and folic acid supplementation Monitor electrolytes Ativan as needed CIWA score CIWA assessment VTE prophylaxis: Lovenox GI prophylaxis Protonix CODE STATUS full code Dispo 2 to 3 days pending improvement.
[2021-06-26] MEDS: HYDROmorphone 2 MG/ML Syringe IVPUSH PRN ×5 (13:52→23:03)
[2021-06-26] MEDS: Enoxaparin 40 MG/0.4 ML Syringe SUBCUT SCH (13:53)
[2021-06-26] MEDS: Lactated Ringers 1,000 ML IV SCH ×2 (13:53→20:22)
[2021-06-26] MEDS: Pantoprazole 40 MG/10 ML Syringe IVPUSH SCH (14:35)
[2021-06-26] MEDS: LORazepam 2 MG/ML SDV IV PRN ×2 (17:48→20:18)
[2021-06-26] MEDS: Ondansetron 4 MG/2 ML SDV IVPUSH PRN ×2 (17:49→23:16)
[2021-06-27] MEDS: HYDROmorphone 2 MG/ML Syringe IVPUSH PRN ×3 (01:20→05:37)
[2021-06-27] MEDS: Lactated Ringers 1,000 ML IV SCH ×2 (03:08→10:19)
[2021-06-27] MEDS: LORazepam 2 MG/ML SDV IV PRN (04:22)
[2021-06-27 06:55] LABS: BLOOD UREA NITROGEN,BUN 9 mg/dL (7.0-18.0); CARBON DIOXIDE,CO2 24.4 mmol/L (21.0-32.0); CHLORIDE,CL 103 mmol/L (98-107); GLUCOSE RANDOM 97 mg/dL (74-106); POTASSIUM,K 3.7 mmol/L (3.5-5.1); SODIUM,NA 137 mmol/L (136-145)
[2021-06-27] MEDS: HYDROmorphone 1 MG/ML Syringe IVPUSH PRN ×2 (09:33→12:49)
[2021-06-27] MEDS: Pantoprazole 40 MG/10 ML Syringe IVPUSH SCH (10:16)
--- NOTE | 2021-06-27 11:36 | PCM.PN ---
- General Info Date of Service: 06/27/21 - Review of Systems Systems Review Comment:: abdominal pain improving, no fevers, - Patient Data Vitals - Most Recent: Last Vital Signs Temp 36.3 C 06/27/21 08:00 Pulse 78 06/27/21 08:00 Resp 14 06/27/21 08:00 BP 116/66 06/27/21 08:00 Pulse Ox 97 06/27/21 08:00 Weight - Most Recent: 74.117 kg I&O - Last 24 Hours: Intake & Output 06/26/21 06/27/21 06/27/21 22:59 06:59 14:59 Intake Total 900 Output Total 600 Balance 300 Lab Results Last 24 Hours: Laboratory Results - last 24 hr 06/26/21 06/26/21 06/27/21 Range/Units 08:25 11:30 05:44 WBC 6.91 (4.0-11.0) K/uL RBC 3.56 L (4.30-5.90) M/uL Hgb 9.8 L (12.0-16.0) g/dL Hct 30.9 L (36.0-46.0) % MCV 86.8 (80.0-98.0) fL MCH 27.5 (27.0-32.0) pg MCHC 31.7 (31.0-37.0) g/dL RDW Std Deviation 61.5 (28.0-62.0) fl RDW Coeff of [place] 19 H (11.0-15.0) % Plt Count 283 (150-400) K/uL MPV 8.80 (7.40-12.00) fL Neut % (Auto) 55.6 (48.0-80.0) % Lymph % (Auto) 31.3 (16.0-40.0) % [place] % (Auto) 9.0 (0.0-15.0) % Eos % (Auto) 3.8 (0.0-7.0) % Baso % (Auto) 0.3 (0.0-1.5) % Neut # (Auto) 3.9 (1.4-5.7) K/uL Lymph # (Auto) 2.2 (0.6-2.4) K/uL [place] # (Auto) 0.6 (0.0-0.8) K/uL Eos # (Auto) 0.3 (0.0-0.7) K/uL Baso # (Auto) 0.0 (0.0-0.1) K/uL Nucleated RBC % 0.0 /100WBC Nucleated RBCs # 0 K/uL Sodium (136-145) mmol/L Potassium (3.5-5.1) mmol/L Chloride (98-107) mmol/L Carbon Dioxide (21.0-32.0) mmol/L BUN (7.0-18.0) mg/dL Creatinine (0.6-1.0) mg/dL Est Cr Clr Drug Dosing mL/min Estimated GFR (MDRD) ml/min Glucose (74-106) mg/dL Calcium (8.5-10.1) mg/dL Magnesium (1.8-2.4) mg/dL Total Bilirubin (0.2-1.0) mg/dL AST (15-37) IU/L ALT (14-63) IU/L Alkaline Phosphatase (46-116) U/L Total Protein (6.4-8.2) g/dL Albumin (3.4-5.0) g/dL Globulin (2.6-4.0) g/dL Albumin/Globulin Ratio (0.9-1.6) HCG, Qual NEGATIVE (NEG) SARS-CoV-2 RNA (DENISSE) NEGATIVE (NEGATIVE) 06/27/21 Range/Units 05:44 WBC (4.0-11.0) K/uL RBC (4.30-5.90) M/uL Hgb (12.0-16.0) g/dL Hct (36.0-46.0) % MCV (80.0-98.0) fL MCH (27.0-32.0) pg MCHC (31.0-37.0) g/dL RDW Std Deviation (28.0-62.0) fl RDW Coeff of [place] (11.0-15.0) % Plt Count (150-400) K/uL MPV (7.40-12.00) fL Neut % (Auto) (48.0-80.0) % Lymph % (Auto) (16.0-40.0) % [place] % (Auto) (0.0-15.0) % Eos % (Auto) (0.0-7.0) % Baso % (Auto) (0.0-1.5) % Neut # (Auto) (1.4-5.7) K/uL Lymph # (Auto) (0.6-2.4) K/uL [place] # (Auto) (0.0-0.8) K/uL Eos # (Auto) (0.0-0.7) K/uL Baso # (Auto) (0.0-0.1) K/uL Nucleated RBC % /100WBC Nucleated RBCs # K/uL Sodium 137 (136-145) mmol/L Potassium 3.7 (3.5-5.1) mmol/L Chloride 103 (98-107) mmol/L Carbon Dioxide 24.4 (21.0-32.0) mmol/L BUN 9 (7.0-18.0) mg/dL Creatinine 0.5 L (0.6-1.0) mg/dL Est Cr Clr Drug Dosing 135.61 mL/min Estimated GFR (MDRD) > 60.0 ml/min Glucose 97 (74-106) mg/dL Calcium 8.0 L (8.5-10.1) mg/dL Magnesium 1.8 (1.8-2.4) mg/dL Total Bilirubin 0.3 (0.2-1.0) mg/dL AST 15 (15-37) IU/L ALT 19 (14-63) IU/L Alkaline Phosphatase 91 (46-116) U/L Total Protein 6.2 L (6.4-8.2) g/dL Albumin 3.2 L (3.4-5.0) g/dL Globulin 3.0 (2.6-4.0) g/dL Albumin/Globulin Ratio 1.1 (0.9-1.6) HCG, Qual (NEG) SARS-CoV-2 RNA (DENISSE) (NEGATIVE) Med Orders - Current: Current Medications Enoxaparin Sodium (Enoxaparin 40 Mg/0.4 Ml Syringe) 40 mg SUBCUT Q24H [facility] Last Admin: 06/26/21 13:53 Dose: 40 mg Documented by: Hydromorphone HCl (Hydromorphone 1 Mg/Ml Syringe) 1 mg IVPUSH Q2H PRN PRN Reason: Pain (severe 7-10) Last Admin: 06/27/21 09:33 Dose: 1 mg Documented by: Lactated Ringer's (Ringers, Lactated) 1,000 mls @ 150 mls/hr IV Q6H [facility] Last Admin: 06/27/21 10:19 Dose: 150 mls/hr Documented by: Lorazepam (Lorazepam 2 Mg/Ml Sdv) 0 mg IV Q4H PRN; Protocol PRN Reason: CIWAA Last Admin: 06/27/21 04:22 Dose: 1 mg Documented by: Ondansetron HCl (Ondansetron 4 Mg/2 Ml Sdv) 4 mg IVPUSH Q4H PRN PRN Reason: Nausea Last Admin: 06/26/21 23:16 Dose: 4 mg Documented by: Pantoprazole Sodium (Pantoprazole 40 Mg/10 Ml Syringe) 40 mg IVPUSH DAILY [facility] Last Admin: 06/27/21 10:16 Dose: 40 mg Documented by: Sodium Chloride (Sodium Chloride 0.9% 2.5 Ml Syringe) 2.5 ml FLUSH ASDIRECTED PRN PRN Reason: Keep Vein Open Discontinued Medications Hydromorphone HCl (Hydromorphone 1 Mg/Ml Syringe) 1 mg IVPUSH ONETIME ONE Stop: 06/26/21 08:26 Last Admin: 06/26/21 08:30 Dose: 1 mg Documented by: Hydromorphone HCl (Hydromorphone 2 Mg/Ml Syringe) 1 mg IVPUSH ONETIME ONE Stop: 06/26/21 10:03 Last Admin: 06/26/21 10:07 Dose: Not Given Documented by: Hydromorphone HCl (Hydromorphone 1 Mg/Ml Syringe) 1 mg IVPUSH ONETIME ONE Stop: 06/26/21 10:07 Last Admin: 06/26/21 10:15 Dose: 1 mg Documented by: Hydromorphone HCl (Hydromorphone 2 Mg/Ml Syringe) 1 mg IVPUSH Q2H PRN PRN Reason: Pain (severe 7-10) Last Admin: 06/27/21 05:37 Dose: 1 mg Documented by: Iopamidol (Iopamidol 755 Mg/Ml 500 Ml Multipack Bottle) 100 ml IVPUSH ONETIME STA Stop: 06/26/21 10:07 Last Admin: 06/26/21 10:07 Dose: 100 ml Documented by: Ondansetron HCl (Ondansetron 4 Mg/2 Ml Sdv) 4 mg IVPUSH ONETIME ONE Stop: 06/26/21 08:26 Last Admin: 06/26/21 08:31 Dose: 4 mg Documented by: Sodium Chloride (Sodium Chloride 0.9% 10 Ml Syringe) 10 ml FLUSH ASDIRECTED PRN PRN Reason: Keep Vein Open Last Admin: 06/26/21 11:52 Dose: 10 ml Documented by: Sodium Chloride (Sodium Chloride 0.9% 2.5 Ml Syringe) 2.5 ml FLUSH ASDIRECTED PRN PRN Reason: Keep Vein Open Last Admin: 06/26/21 11:52 Dose: 2.5 ml Documented by: - Exam General: Alert, Oriented Neck: Supple Lungs: Clear to Auscultation, Normal Respiratory Effort Cardiovascular: Regular Rate, Regular Rhythm GI/Abdominal Exam: Soft, Non-Tender, No Distention Extremities: Non-Tender, No Pedal Edema Skin: Warm, Dry, Intact - Patient Data Lab Results Last 24 hrs: Laboratory Results - last 24 hr 06/26/21 06/26/21 06/27/21 Range/Units 08:25 11:30 05:44 WBC 6.91 (4.0-11.0) K/uL RBC 3.56 L (4.30-5.90) M/uL Hgb 9.8 L (12.0-16.0) g/dL Hct 30.9 L (36.0-46.0) % MCV 86.8 (80.0-98.0) fL MCH 27.5 (27.0-32.0) pg MCHC 31.7 (31.0-37.0) g/dL RDW Std Deviation 61.5 (28.0-62.0) fl RDW Coeff of [place] 19 H (11.0-15.0) % Plt Count 283 (150-400) K/uL MPV 8.80 (7.40-12.00) fL Neut % (Auto) 55.6 (48.0-80.0) % Lymph % (Auto) 31.3 (16.0-40.0) % [place] % (Auto) 9.0 (0.0-15.0) % Eos % (Auto) 3.8 (0.0-7.0) % Baso % (Auto) 0.3 (0.0-1.5) % Neut # (Auto) 3.9 (1.4-5.7) K/uL Lymph # (Auto) 2.2 (0.6-2.4) K/uL [place] # (Auto) 0.6 (0.0-0.8) K/uL Eos # (Auto) 0.3 (0.0-0.7) K/uL Baso # (Auto) 0.0 (0.0-0.1) K/uL Nucleated RBC % 0.0 /100WBC Nucleated RBCs # 0 K/uL Sodium (136-145) mmol/L Potassium (3.5-5.1) mmol/L Chloride (98-107) mmol/L Carbon Dioxide (21.0-32.0) mmol/L BUN (7.0-18.0) mg/dL Creatinine (0.6-1.0) mg/dL Est Cr Clr Drug Dosing mL/min Estimated GFR (MDRD) ml/min Glucose (74-106) mg/dL Calcium (8.5-10.1) mg/dL Magnesium (1.8-2.4) mg/dL Total Bilirubin (0.2-1.0) mg/dL AST (15-37) IU/L ALT (14-63) IU/L Alkaline Phosphatase (46-116) U/L Total Protein (6.4-8.2) g/dL Albumin (3.4-5.0) g/dL Globulin (2.6-4.0) g/dL Albumin/Globulin Ratio (0.9-1.6) HCG, Qual NEGATIVE (NEG) SARS-CoV-2 RNA (DENISSE) NEGATIVE (NEGATIVE) 06/27/21 Range/Units 05:44 WBC (4.0-11.0) K/uL RBC (4.30-5.90) M/uL Hgb (12.0-16.0) g/dL Hct (36.0-46.0) % MCV (80.0-98.0) fL MCH (27.0-32.0) pg MCHC (31.0-37.0) g/dL RDW Std Deviation (28.0-62.0) fl RDW Coeff of [place] (11.0-15.0) % Plt Count (150-400) K/uL MPV (7.40-12.00) fL Neut % (Auto) (48.0-80.0) % Lymph % (Auto) (16.0-40.0) % [place] % (Auto) (0.0-15.0) % Eos % (Auto) (0.0-7.0) % Baso % (Auto) (0.0-1.5) % Neut # (Auto) (1.4-5.7) K/uL Lymph # (Auto) (0.6-2.4) K/uL [place] # (Auto) (0.0-0.8) K/uL Eos # (Auto) (0.0-0.7) K/uL Baso # (Auto) (0.0-0.1) K/uL Nucleated RBC % /100WBC Nucleated RBCs # K/uL Sodium 137 (136-145) mmol/L Potassium 3.7 (3.5-5.1) mmol/L Chloride 103 (98-107) mmol/L Carbon Dioxide 24.4 (21.0-32.0) mmol/L BUN 9 (7.0-18.0) mg/dL Creatinine 0.5 L (0.6-1.0) mg/dL Est Cr Clr Drug Dosing 135.61 mL/min Estimated GFR (MDRD) > 60.0 ml/min Glucose 97 (74-106) mg/dL Calcium 8.0 L (8.5-10.1) mg/dL Magnesium 1.8 (1.8-2.4) mg/dL Total Bilirubin 0.3 (0.2-1.0) mg/dL AST 15 (15-37) IU/L ALT 19 (14-63) IU/L Alkaline Phosphatase 91 (46-116) U/L Total Protein 6.2 L (6.4-8.2) g/dL Albumin 3.2 L (3.4-5.0) g/dL Globulin 3.0 (2.6-4.0) g/dL Albumin/Globulin Ratio 1.1 (0.9-1.6) HCG, Qual (NEG) SARS-CoV-2 RNA (DENISSE) (NEGATIVE) Result Diagrams: 06/27/21 05:44 06/27/21 05:44 Sepsis Event Note - Evaluation Sepsis Screening Result: No Definite Risk - Focused Exam Vital Signs: Vital Signs Temp Pulse Resp BP Pulse Ox 06/27/21 08:00 36.3 C 78 14 116/66 97 06/27/21 03:17 36.6 C 68 16 128/83 97 - Problem List & Annotations (1) Acute alcoholic pancreatitis SNOMED Code(s): 997859599 Code(s): K85.20 - ALCOHOL INDUCED ACUTE PANCREATITIS WITHOUT NECROSIS OR INFCT Status: Acute Current Visit: Yes Qualifiers: Acute pancreatitis complication: no infection or necrosis Qualified Code(s): K85.20 - Alcohol induced acute pancreatitis without necrosis or infection (2) Acute on chronic pancreatitis SNOMED Code(s): 517373444 Code(s): K85.90 - ACUTE PANCREATITIS WITHOUT NECROSIS OR INFECTION, UNSP; K86.1 - OTHER CHRONIC PANCREATITIS Status: Acute Current Visit: Yes - Problem List Review Problem List Initiated/Reviewed/Updated: Yes - My Orders Last 24 Hours: My Active Orders 06/27/21 Lunch Clear Liquid Diet [DIET] - Plan Plan:: This 36-year-old female admitted with acute on chronic pancreatitis 1. Acute on chronic pancreatitis will advance to clear liquid diet 2. History of alcohol abuse Thiamine and folic acid supplementation Monitor electrolytes Ativan as needed CIWA score CIWA assessment VTE prophylaxis: Lovenox GI prophylaxis Protonix CODE STATUS full code Dispo 2 to 3 days pending improvement.
[2021-06-27] MEDS: Enoxaparin 40 MG/0.4 ML Syringe SUBCUT SCH (12:46)
[2021-06-27] MEDS ORDERED: HYDROmorphone 1 MG/ML Syringe IVPUSH PRN (16:00)
--- NOTE | 2021-06-27 18:15 | PCM.DCSUM1 ---
Discharge Summary - Discharge Data Discharge Date: 06/27/21 Discharge Disposition: Home, Self-Care 01 Condition: Stable - Referral to Home Health Primary Care Physician: PCP None - Discharge Diagnosis/Problem(s) (1) Acute alcoholic pancreatitis SNOMED Code(s): 101629762 ICD Code: K85.20 - ALCOHOL INDUCED ACUTE PANCREATITIS WITHOUT NECROSIS OR INF CT Status: Acute Current Visit: Yes Qualifiers: Acute pancreatitis complication: no infection or necrosis Qualified Code(s): K85.20 - Alcohol induced acute pancreatitis without necrosis or infection (2) Acute on chronic pancreatitis SNOMED Code(s): 418292195 ICD Code: K85.90 - ACUTE PANCREATITIS WITHOUT NECROSIS OR INFECTION, UNSP; K86.1 - OTHER CHRONIC PANCREATITIS Status: Acute Current Visit: Yes - Patient Summary/Data Hospital Course: This 36-year old female with past medical history of acute on chronic alcoholic pancreatitis, alcohol abuse, depression, and chronic thrombosis of SMV presented to the ER with 3 days of right abdominal pain. In the ER mild leukocytosis noted at 11,830 hemoglobin 11.4. CMP revealed sodium 136 potassium 4.5 BUN 14 creatinine 0.8 bilirubin 0.1 AST 18 ALT 19 ALK Phos 111. Lipase 336. UA negative Covid swab negative. CT of the abdomen reveals findings suggesting acute on chronic pancreatitis acutely inflamed area appears to be a pancreatic head and at the pancreatic duodenal groove. Patient was admitted and treated with IV fluids, bowel rest, and Dilaudid. She has had improvement in her symptoms and is requesting discharge. She was discharged home to have follow up with Dr. Harper. - Patient Instructions Diet: Regular Diet as Tolerated, No Alcoholic Beverages Activity: As Tolerated Notify Provider of: Fever, Increased Pain, Nausea and/or Vomiting - Discharge Plan Home Medications: Home Meds Acetaminophen/oxyCODONE [Percocet 325-5 MG] 1 each PO Q6H PRN #12 tab 06/23/21 [Rx] Sucralfate 1 gm PO QID #1 bottle 06/23/21 [Rx] Patient Handouts: Acute Pancreatitis, [id number], Pancreatitis Eating Plan Forms: ED Department Discharge Referrals: PCP,None [Primary Care Provider] - - Discharge Summary/Plan Comment DC Time >30 min.: No Total # of Minutes for Discharge Time: 15 - Patient Data Vitals - Most Recent: Last Vital Signs Temp 35.9 C L 12/31/21 12:00 Pulse 94 06/27/21 12:00 Resp 16 06/27/21 12:00 BP 139/75 06/27/21 12:00 Pulse Ox 96 06/27/21 12:00 Weight - Most Recent: 74.117 kg I&O - Last 24 hours: Intake & Output 06/27/21 06/27/21 06/27/21 06:59 14:59 22:59 Intake Total 900 Output Total 600 Balance 300 Lab Results - Last 24 hrs: Laboratory Results - last 24 hr 06/27/21 06/27/21 Range/Units 05:44 05:44 WBC 6.91 (4.0-11.0) K/uL RBC 3.56 L (4.30-5.90) M/uL Hgb 9.8 L (12.0-16.0) g/dL Hct 30.9 L (36.0-46.0) % MCV 86.8 (80.0-98.0) fL MCH 27.5 (27.0-32.0) pg MCHC 31.7 (31.0-37.0) g/dL RDW Std Deviation 61.5 (28.0-62.0) fl RDW Coeff of [place] 19 H (11.0-15.0) % Plt Count 283 (150-400) K/uL MPV 8.80 (7.40-12.00) fL Neut % (Auto) 55.6 (48.0-80.0) % Lymph % (Auto) 31.3 (16.0-40.0) % Emmet % (Auto) 9.0 (0.0-15.0) % Eos % (Auto) 3.8 (0.0-7.0) % Baso % (Auto) 0.3 (0.0-1.5) % Neut # (Auto) 3.9 (1.4-5.7) K/uL Lymph # (Auto) 2.2 (0.6-2.4) K/uL Emmet # (Auto) 0.6 (0.0-0.8) K/uL Eos # (Auto) 0.3 (0.0-0.7) K/uL Baso # (Auto) 0.0 (0.0-0.1) K/uL Nucleated RBC % 0.0 /100WBC Nucleated RBCs # 0 K/uL Sodium 137 (136-145) mmol/L Potassium 3.7 (3.5-5.1) mmol/L Chloride 103 (98-107) mmol/L Carbon Dioxide 24.4 (21.0-32.0) mmol/L BUN 9 (7.0-18.0) mg/dL Creatinine 0.5 L (0.6-1.0) mg/dL Est Cr Clr Drug Dosing 135.61 mL/min Estimated GFR (MDRD) > 60.0 ml/min Glucose 97 (74-106) mg/dL Calcium 8.0 L (8.5-10.1) mg/dL Magnesium 1.8 (1.8-2.4) mg/dL Total Bilirubin 0.3 (0.2-1.0) mg/dL AST 15 (15-37) IU/L ALT 19 (14-63) IU/L Alkaline Phosphatase 91 (46-116) U/L Total Protein 6.2 L (6.4-8.2) g/dL Albumin 3.2 L (3.4-5.0) g/dL Globulin 3.0 (2.6-4.0) g/dL Albumin/Globulin Ratio 1.1 (0.9-1.6) Med Orders - Current: Current Medications Enoxaparin Sodium (Enoxaparin 40 Mg/0.4 Ml Syringe) 40 mg SUBCUT Q24H [facility] Last Admin: 06/27/21 12:46 Dose: 40 mg Documented by: Hydromorphone HCl (Hydromorphone 1 Mg/Ml Syringe) 1 mg IVPUSH Q3H PRN PRN Reason: Pain Last Admin: 06/27/21 17:05 Dose: 1 mg Documented by: Lactated Ringer's (Ringers, Lactated) 1,000 mls @ 150 mls/hr IV Q6H [facility] Last Admin: 06/27/21 10:19 Dose: 150 mls/hr Documented by: Lorazepam (Lorazepam 2 Mg/Ml Sdv) 0 mg IV Q4H PRN; Protocol PRN Reason: CIWAA Last Admin: 06/27/21 04:22 Dose: 1 mg Documented by: Ondansetron HCl (Ondansetron 4 Mg/2 Ml Sdv) 4 mg IVPUSH Q4H PRN PRN Reason: Nausea Last Admin: 06/26/21 23:16 Dose: 4 mg Documented by: Pantoprazole Sodium (Pantoprazole 40 Mg/10 Ml Syringe) 40 mg IVPUSH DAILY [facility] Last Admin: 06/27/21 10:16 Dose: 40 mg Documented by: Sodium Chloride (Sodium Chloride 0.9% 2.5 Ml Syringe) 2.5 ml FLUSH ASDIRECTED PRN PRN Reason: Keep Vein Open Discontinued Medications Hydromorphone HCl (Hydromorphone 1 Mg/Ml Syringe) 1 mg IVPUSH ONETIME ONE Stop: 06/26/21 08:26 Last Admin: 06/26/21 08:30 Dose: 1 mg Documented by: Hydromorphone HCl (Hydromorphone 2 Mg/Ml Syringe) 1 mg IVPUSH ONETIME ONE Stop: 06/26/21 10:03 Last Admin: 06/26/21 10:07 Dose: Not Given Documented by: Hydromorphone HCl (Hydromorphone 1 Mg/Ml Syringe) 1 mg IVPUSH ONETIME ONE Stop: 06/26/21 10:07 Last Admin: 06/26/21 10:15 Dose: 1 mg Documented by: Hydromorphone HCl (Hydromorphone 2 Mg/Ml Syringe) 1 mg IVPUSH Q2H PRN PRN Reason: Pain (severe 7-10) Last Admin: 06/27/21 05:37 Dose: 1 mg Documented by: Hydromorphone HCl (Hydromorphone 1 Mg/Ml Syringe) 1 mg IVPUSH Q2H PRN PRN Reason: Pain (severe 7-10) Last Admin: 06/27/21 12:49 Dose: 1 mg Documented by: Iopamidol (Iopamidol 755 Mg/Ml 500 Ml Multipack Bottle) 100 ml IVPUSH ONETIME STA Stop: 06/26/21 10:07 Last Admin: 06/26/21 10:07 Dose: 100 ml Documented by: Ondansetron HCl (Ondansetron 4 Mg/2 Ml Sdv) 4 mg IVPUSH ONETIME ONE Stop: 06/26/21 08:26 Last Admin: 06/26/21 08:31 Dose: 4 mg Documented by: Sodium Chloride (Sodium Chloride 0.9% 10 Ml Syringe) 10 ml FLUSH ASDIRECTED PRN PRN Reason: Keep Vein Open Last Admin: 06/26/21 11:52 Dose: 10 ml Documented by: Sodium Chloride (Sodium Chloride 0.9% 2.5 Ml Syringe) 2.5 ml FLUSH ASDIRECTED PRN PRN Reason: Keep Vein Open Last Admin: 06/26/21 11:52 Dose: 2.5 ml Documented by:
== END 2021-06-27 19:20 | disposition home or self-care (01) | DRG 282 ==
LOC: MW.ED 07:55 → MW.MS 11:27
PROVIDERS: ADMIT Internal Medicine; ATTEND Internal Medicine
DX: K85.20 Alcohol induced acute pancreatitis without necrosis or infection (principal); K86.1 Other chronic pancreatitis; F32.A Depression, unspecified; F41.9 Anxiety disorder, unspecified; I81 Portal vein thrombosis; Z20.822 Contact with and (suspected) exposure to COVID-19; Z86.718 Personal history of other venous thrombosis and embolism; Z79.01 Long term (current) use of anticoagulants; Z90.89 Acquired absence of other organs
CPT/HCPCS: 36415; 74177; 74177-26; 80053; 81001; 83690; 83735; 84703; 85025; 96374; 96375; 96376; 99285-25; C9113; J1170; J1650; J2060; J2405; J7120; Q9967; U0002

== ENCOUNTER 2021-09-09 12:36 | Emergency (ER) | payer BC ==
[2021-09-09] MEDS ORDERED: Sodium Chloride 0.9% 1,000 ML IV ONE (12:51)
[2021-09-09] MEDS ORDERED: Ondansetron 4 MG/2 ML SDV IVPUSH ONE (12:51)
[2021-09-09] MEDS ORDERED: HYDROmorphone 1 MG/ML Syringe IVPUSH ONE ×2 (12:51→13:54)
[2021-09-09] MEDS ORDERED: LORazepam 2 MG/ML SDV IVPUSH ONE (12:53)
[2021-09-09 13:36] LABS: BLOOD UREA NITROGEN,BUN 14 mg/dL (7.0-18.0); CARBON DIOXIDE,CO2 24.2 mmol/L (21.0-32.0); CHLORIDE,CL 101 mmol/L (98-107); ESTIMATED GFR > 60.0 ml/min; GLUCOSE RANDOM 112 mg/dL (74-106); LIPASE 290 U/L (73-393); POTASSIUM,K 3.7 mmol/L (3.5-5.1); SODIUM,NA 138 mmol/L (136-145)
== END 2021-09-09 14:24 | disposition home or self-care (01) ==
LOC: MW.ED 12:36
DX: R10.84 Generalized abdominal pain (principal); Z87.19 Personal history of other diseases of the digestive system; Z86.59 Personal history of other mental and behavioral disorders
CPT/HCPCS: 36415; 80053; 80307; 83690; 83735; 84703; 85025; 96374; 96375; 96376; 99284; J1170; J2060; J2405; J7030

== ENCOUNTER 2021-09-10 05:32 | Emergency (ER) | payer BC ==
[2021-09-10] MEDS ORDERED: HYDROmorphone 1 MG/ML Syringe ONE (06:03)
[2021-09-10] MEDS ORDERED: Ondansetron 4 MG/2 ML SDV ONE (06:03)
[2021-09-10 07:45] LABS: BLOOD UREA NITROGEN,BUN 10 mg/dL (7.0-18.0); CARBON DIOXIDE,CO2 24.4 mmol/L (21.0-32.0); CHLORIDE,CL 100 mmol/L (98-107); ESTIMATED GFR > 60.0 ml/min; GLUCOSE RANDOM 108 mg/dL (74-106); LIPASE 278 U/L (73-393); POTASSIUM,K 3.9 mmol/L (3.5-5.1); SODIUM,NA 135 mmol/L (136-145)
== END 2021-09-10 07:34 | disposition home or self-care (01) ==
LOC: MW.ED 05:32
DX: K29.70 Gastritis, unspecified, without bleeding (principal)
CPT/HCPCS: 36415; 80053; 80307; 83690; 83735; 84702; 85025; 99284; J1170; J2405; 96374; 96375; 99283

== ENCOUNTER 2021-09-16 09:29 | Emergency (ER) | payer BC ==
[2021-09-16] MEDS ORDERED: HYDROmorphone 1 MG/ML Syringe IVPUSH ONE (09:46)
[2021-09-16] MEDS ORDERED: Ondansetron 4 MG/2 ML SDV IVPUSH ONE (09:46)
[2021-09-16] MEDS ORDERED: Sodium Chloride 0.9% 1,000 ML IV ONE (09:46)
[2021-09-16 10:31] LABS: BLOOD UREA NITROGEN,BUN 8 mg/dL (7.0-18.0); CARBON DIOXIDE,CO2 22.6 mmol/L (21.0-32.0); CHLORIDE,CL 98 mmol/L (98-107); GLUCOSE RANDOM 110 mg/dL (74-106); LIPASE 64 U/L (73-393); SODIUM,NA 135 mmol/L (136-145)
== END 2021-09-16 11:46 | disposition home or self-care (01) ==
LOC: MW.ED 09:29
DX: N30.00 Acute cystitis without hematuria (principal)
CPT/HCPCS: 36415; 80053; 80307; 81001; 81025; 83690; 83735; 85025; 87086; 93005; 96374; 96375; 99284; J1170; J2405; J7030

== ENCOUNTER 2021-12-19 03:31 | Emergency (ER) | payer BC ==
[2021-12-19] MEDS ORDERED: Ketorolac 30 MG/ML SDV IM ONE (03:47)
[2021-12-19] MEDS ORDERED: Ondansetron 4 MG Tab.DIS PO ONE (03:48)
[2021-12-19] MEDS ORDERED: HYDROmorphone 2 MG/ML Syringe IM ONE (04:15)
[2021-12-19 04:28] LABS: CARBON DIOXIDE,CO2 20.9 mmol/L (21.0-32.0); POTASSIUM,K 4.1 mmol/L (3.5-5.1)
[2021-12-19] MEDS ORDERED: Sodium Chloride 0.9% 1,000 ML IV ONE (04:51)
== END 2021-12-19 05:00 | disposition home or self-care (01) ==
LOC: MW.ED 03:31
DX: K85.90 Acute pancreatitis without necrosis or infection, unspecified (principal)
CPT/HCPCS: 36415; 80053; 81001; 83690; 85025; 96372; 99284; A9270; J1170; J1885; 99283

== ENCOUNTER 2021-12-20 14:09 | Observation (INO) | payer BC ==
[2021-12-20] MEDS ORDERED: Sodium Chloride 0.9% 10 ML Syringe FLUSH PRN (14:39)
[2021-12-20] MEDS ORDERED: Sodium Chloride 0.9% 2.5 ML Syringe FLUSH PRN (14:39)
[2021-12-20] MEDS ORDERED: Sodium Chloride 0.9% 1,000 ML IV ONE ×3 (15:42→21:01)
[2021-12-20] MEDS ORDERED: HYDROmorphone 1 MG/ML Syringe IVPUSH ONE (15:42)
[2021-12-20] MEDS ORDERED: Ondansetron 4 MG/2 ML SDV IVPUSH ONE (15:42)
[2021-12-20 16:08] LABS: CARBON DIOXIDE,CO2 22.6 mmol/L (21.0-32.0); POTASSIUM,K 4.8 mmol/L (3.5-5.1)
[2021-12-20] MEDS ORDERED: Iopamidol 755 MG/ML 500 ML Multipack Bottle IVPUSH STA (16:37)
[2021-12-20] MEDS ORDERED: Ketorolac 30 MG/ML SDV IVPUSH ONE (17:36)
[2021-12-20] MEDS: HYDROmorphone 1 MG/ML Syringe IVPUSH PRN (21:13)
[2021-12-20] MEDS: Sodium Chloride 0.9% 1,000 ML IV SCH (22:25)
[2021-12-21] MEDS: HYDROmorphone 1 MG/ML Syringe IVPUSH PRN ×5 (00:22→14:42)
[2021-12-21] MEDS: Sodium Chloride 0.9% 1,000 ML IV SCH (03:48)
[2021-12-21 07:59] LABS: CARBON DIOXIDE,CO2 20.4 mmol/L (21.0-32.0); POTASSIUM,K 4.4 mmol/L (3.5-5.1)
== END 2021-12-21 16:45 | disposition home or self-care (01) ==
LOC: MW.ED 14:09 → MW.MS 18:55
PROVIDERS: ADMIT Internal Medicine; ATTEND Internal Medicine
DX: K85.20 Alcohol induced acute pancreatitis without necrosis or infection (principal); K86.0 Alcohol-induced chronic pancreatitis; F10.10 Alcohol abuse, uncomplicated; K76.9 Liver disease, unspecified; Z79.891 Long term (current) use of opiate analgesic; Z79.899 Other long term (current) drug therapy; Z20.822 Contact with and (suspected) exposure to COVID-19
CPT/HCPCS: 36415; 74177; 80053; 80305; 80307; 81003; 81025; 84443; 85025; 87635; 93005; 96374; 96375; 99285; J1170; J1885; J2405; J3490; J7030; Q9967; 93010; 96376; G0378; U0002

== ENCOUNTER 2022-03-30 03:19 | Emergency (ER) | payer BC ==
[2022-03-30] MEDS ORDERED: Iopamidol 755 Mg/ML 100 ML Bottle IV ONE (03:20)
[2022-03-30] MEDS ORDERED: Lactated Ringers 1,000 ML IV ONE (03:51)
[2022-03-30] MEDS ORDERED: Morphine 4 MG/ML Syringe IVPUSH ONE (03:54)
[2022-03-30] MEDS ORDERED: Ondansetron 4 MG/2 ML SDV IVPUSH ONE (03:54)
[2022-04-28 10:07] LABS: POTASSIUM,K 4.2 mmol/L (3.5-5.1); SODIUM,NA 139 mmol/L (136-145)
[2022-04-28 10:08] LABS: BLOOD UREA NITROGEN,BUN 12 mg/dL (7.0-18.0); CARBON DIOXIDE,CO2 24.1 mmol/L (21.0-32.0); CHLORIDE,CL 106 mmol/L (98-107); ESTIMATED GFR 120 mL/min (>60); GLUCOSE RANDOM 105 mg/dL (74-106); LIPASE 255 U/L (73-393)
== END 2022-03-30 06:25 | disposition home or self-care (01) ==
LOC: MW.ED 03:19
DX: K86.89 Other specified diseases of pancreas (principal)
CPT/HCPCS: 36415; 74177; 80053; 81001; 81025; 83690; 85025; 87086; 96361; 96374; 96375; 99284; J2270; J2405; J7120; Q9967

== ENCOUNTER 2022-04-02 05:00 | Emergency (ER) | payer BC ==
[2022-04-02] MEDS ORDERED: Ondansetron 4 MG/2 ML SDV IVPUSH ONE (05:40)
[2022-04-02] MEDS ORDERED: HYDROmorphone 1 MG/ML Syringe IV ONE (05:42)
[2022-04-02] MEDS ORDERED: Sodium Chloride 0.9% 500 ML IV ONE (05:44)
== END 2022-04-02 07:00 | disposition home or self-care (01) ==
LOC: MW.ED 05:00
DX: R10.13 Epigastric pain (principal)
CPT/HCPCS: 96374; 96375; 99284; J1170; J2405; J7030; 99283

== ENCOUNTER 2022-04-28 14:21 | Emergency (ER) | payer BC ==
[2022-04-28] MEDS ORDERED: Sodium Chloride 0.9% 10 ML Syringe FLUSH PRN (14:50)
[2022-04-28] MEDS ORDERED: Sodium Chloride 0.9% 1,000 ML IV ONE (14:50)
[2022-04-28] MEDS ORDERED: Sodium Chloride 0.9% 2.5 ML Syringe FLUSH PRN (14:50)
[2022-04-28] MEDS ORDERED: Ondansetron 4 MG/2 ML SDV IVPUSH ONE (14:54)
[2022-04-28] MEDS ORDERED: Ketorolac 30 MG/ML SDV IVPUSH ONE (14:54)
[2022-04-28] MEDS ORDERED: HYDROmorphone 1 MG/ML Syringe IVPUSH ONE (15:34)
[2022-04-28 15:58] LABS: CORONAVIRUS COVID-19 NAA NEGATIVE (NEGATIVE); INFLUENZA A NAA NEGATIVE (NEGATIVE); INFLUENZA B NAA NEGATIVE (NEGATIVE)
[2022-04-28 16:01] LABS: CARBON DIOXIDE,CO2 19.1 mmol/L (21.0-32.0); POTASSIUM,K 3.5 mmol/L (3.5-5.1)
[2022-04-28] MEDS ORDERED: Iopamidol 755 MG/ML 500 ML Multipack Bottle IVPUSH STA (16:24)
== END 2022-04-28 17:47 | disposition left against medical advice (07) ==
LOC: MW.ED 14:21
DX: K85.90 Acute pancreatitis without necrosis or infection, unspecified (principal); Z20.822 Contact with and (suspected) exposure to COVID-19
CPT/HCPCS: 0240U; 36415; 74177; 80053; 81003; 83690; 84703; 85025; 96361; 96374; 96375; 99284; J1170; J1885; J2405; J3490; J7030; Q9967

== ENCOUNTER 2022-04-28 23:50 | Emergency (ER) | payer BC ==
[2022-04-29] MEDS ORDERED: HYDROmorphone 2 MG/ML Syringe IM ONE (00:34)
== END 2022-04-29 01:02 | disposition home or self-care (01) ==
LOC: MW.ED 23:59
DX: R10.84 Generalized abdominal pain (principal)
CPT/HCPCS: 96372; 99283; J1170

== ENCOUNTER 2022-04-29 23:58 | Inpatient (IN) | payer BC ==
[2022-04-30] MEDS ORDERED: Sodium Chloride 0.9% 10 ML Syringe FLUSH PRN (01:21)
[2022-04-30] MEDS ORDERED: Sodium Chloride 0.9% 1,000 ML IV ONE (01:21)
[2022-04-30] MEDS ORDERED: Sodium Chloride 0.9% 2.5 ML Syringe FLUSH PRN (01:21)
[2022-04-30] MEDS ORDERED: Ondansetron 4 MG/2 ML SDV IVPUSH ONE (01:36)
[2022-04-30] MEDS ORDERED: HYDROmorphone 1 MG/ML Syringe IVPUSH ONE (01:36)
[2022-04-30 01:37] LABS: BLOOD UREA NITROGEN,BUN 8 mg/dL (7.0-18.0); CARBON DIOXIDE,CO2 20.1 mmol/L (21.0-32.0); CHLORIDE,CL 98 mmol/L (98-107); GLUCOSE RANDOM 121 mg/dL (74-106); LIPASE 240 U/L (73-393); POTASSIUM,K 3.6 mmol/L (3.5-5.1); SODIUM,NA 133 mmol/L (136-145)
[2022-04-30 01:39] LABS: ESTIMATED GFR 120 mL/min (>60)
[2022-04-30] MEDS ORDERED: Morphine 2 MG/ML SYRINGE IVPUSH PRN (04:18)
[2022-04-30] MEDS ORDERED: Ondansetron 4 MG/2 ML SDV IVPUSH PRN (04:19)
[2022-04-30] MEDS: Lactated Ringers 1,000 ML IV SCH ×3 (04:54→23:45)
[2022-04-30 06:35] LABS: CARBON DIOXIDE,CO2 17.8 mmol/L (21.0-32.0); POTASSIUM,K 3.3 mmol/L (3.5-5.1)
[2022-04-30] MEDS ORDERED: Potassium Phosphates 3 mMole/ML 15 ML SDV IV ONE (06:55)
[2022-04-30] MEDS ORDERED: Magnesium Sulfate/Water 2 GM in Premix Bag 1 BAG IV ONE (06:55)
[2022-04-30] MEDS ORDERED: Potassium Phosphates 20 MMOLE in Sodium Chloride 0.9% 500 ML IV ONE ×2 (07:30→08:45)
[2022-04-30] MEDS ORDERED: HYDROmorphone 1 MG/ML Syringe IVPUSH PRN ×2 (08:05→13:00)
[2022-04-30] MEDS: Pantoprazole 40 MG in Sodium Chloride 0.9% 10 ML IVPUSH SCH (08:15)
[2022-04-30] MEDS ORDERED: Enoxaparin 40 MG/0.4 ML Syringe SUBCUT SCH (09:00)
[2022-04-30] MEDS: HYDROmorphone 1 MG/ML Syringe IVPUSH PRN ×4 (11:17→23:44)
[2022-05-01] MEDS: HYDROmorphone 1 MG/ML Syringe IVPUSH PRN ×5 (03:44→22:35)
[2022-05-01 07:56] LABS: CARBON DIOXIDE,CO2 21.5 mmol/L (21.0-32.0); POTASSIUM,K 3.9 mmol/L (3.5-5.1)
[2022-05-01] MEDS ORDERED: Magnesium Sulfate/Water 4 GM in Premix Bag 1 BAG IV ONE (08:26)
[2022-05-01] MEDS: Pantoprazole 40 MG in Sodium Chloride 0.9% 10 ML IVPUSH SCH (08:40)
[2022-05-01] MEDS: Lactated Ringers 1,000 ML IV SCH ×2 (08:42→21:19)
[2022-05-01] MEDS: oxyCODONE 5 MG Tab PO SCH ×3 (11:32→21:16)
[2022-05-01] MEDS ORDERED: Iopamidol 755 Mg/ML 100 ML Bottle IVPUSH ONE (19:05)
[2022-05-02] MEDS: HYDROmorphone 1 MG/ML Syringe IVPUSH PRN ×6 (02:32→23:37)
[2022-05-02] MEDS: oxyCODONE 5 MG Tab PO SCH ×3 (05:33→21:09)
[2022-05-02] MEDS: Lactated Ringers 1,000 ML IV SCH ×2 (05:33→15:27)
[2022-05-02 07:12] LABS: POTASSIUM,K 3.8 mmol/L (3.5-5.1)
[2022-05-02] MEDS ORDERED: Magnesium Sulfate/Water 2 GM in Premix Bag 1 BAG IV ONE (08:41)
[2022-05-02] MEDS: Pantoprazole 40 MG in Sodium Chloride 0.9% 10 ML IVPUSH SCH (09:11)
[2022-05-03] MEDS: HYDROmorphone 1 MG/ML Syringe IVPUSH PRN ×5 (03:27→20:31)
[2022-05-03] MEDS: oxyCODONE 5 MG Tab PO SCH ×3 (06:08→21:38)
[2022-05-03] MEDS: Lactated Ringers 1,000 ML IV SCH ×2 (06:37→16:53)
[2022-05-03] MEDS: Pantoprazole 40 MG in Sodium Chloride 0.9% 10 ML IVPUSH SCH (08:04)
[2022-05-03 09:30] LABS: CARBON DIOXIDE,CO2 31.1 mmol/L (21.0-32.0); POTASSIUM,K 3.3 mmol/L (3.5-5.1)
[2022-05-03] MEDS ORDERED: Magnesium Sulfate/Water 4 GM in Premix Bag 1 BAG IV ONE (10:50)
[2022-05-03] MEDS ORDERED: Potassium Chloride 20 MEQ Tab.ER PO ONE (10:50)
[2022-05-04] MEDS: HYDROmorphone 1 MG/ML Syringe IVPUSH PRN ×3 (00:51→09:53)
[2022-05-04] MEDS: Lactated Ringers 1,000 ML IV SCH ×2 (00:55→10:38)
[2022-05-04] MEDS: oxyCODONE 5 MG Tab PO SCH (05:57)
[2022-05-04 06:42] LABS: CARBON DIOXIDE,CO2 26.6 mmol/L (21.0-32.0); POTASSIUM,K 3.7 mmol/L (3.5-5.1)
[2022-05-04] MEDS ORDERED: Magnesium Sulfate/Water 4 GM in Premix Bag 1 BAG IV ONE (06:53)
[2022-05-04] MEDS ORDERED: Pantoprazole 40 MG Tab.CR PO SCH (09:00)
== END 2022-05-04 13:50 | disposition home or self-care (01) | DRG 282 ==
LOC: MW.ED 23:58 → MW.ICU 04-30 01:46 → MW.MS 04-30 14:51
PROVIDERS: ADMIT Student in an Organized Health Care Education/Training Program; ATTEND Student in an Organized Health Care Education/Training Program
DX: K85.20 Alcohol induced acute pancreatitis without necrosis or infection (principal); K55.059 Acute (reversible) ischemia of intestine, part and extent unspecified; I82.890 Acute embolism and thrombosis of other specified veins; E87.8 Other disorders of electrolyte and fluid balance, not elsewhere classified; K86.1 Other chronic pancreatitis; F41.9 Anxiety disorder, unspecified; F32.A Depression, unspecified; F10.10 Alcohol abuse, uncomplicated; K86.2 Cyst of pancreas; Z86.718 Personal history of other venous thrombosis and embolism; Z79.01 Long term (current) use of anticoagulants
CPT/HCPCS: 36415; 74177; 74177-26; 80053; 80307; 81001; 83605; 83690; 83735; 84100; 85025; 96361; 96374; 96375; 99284-25; A9270-GY; C9113; J1170; J1650; J2270; J2405; J3475; J3490; J7030; J7040; J7120; Q9967

== ENCOUNTER 2022-07-06 08:53 | Emergency (ER) | payer BC ==
[2022-07-06] MEDS ORDERED: Lactated Ringers 1,000 ML IV ONE ×2 (09:04→10:00)
[2022-07-06] MEDS ORDERED: HYDROmorphone 1 MG/ML Syringe IVPUSH ONE (09:09)
[2022-07-06] MEDS ORDERED: Ondansetron 4 MG/2 ML SDV IVPUSH ONE (09:09)
[2022-07-06 10:09] LABS: POTASSIUM,K 3.8 mmol/L (3.5-5.1)
[2022-07-06 10:11] LABS: CORONAVIRUS COVID-19 NAA NEGATIVE (NEGATIVE); INFLUENZA A NAA NEGATIVE (NEGATIVE); INFLUENZA B NAA NEGATIVE (NEGATIVE); RESPIRATORY SYNCYTIAL VIR NAA NEGATIVE (NEGATIVE)
== END 2022-07-06 10:58 | disposition home or self-care (01) ==
LOC: MW.ED 08:53
DX: R10.84 Generalized abdominal pain (principal); Z20.822 Contact with and (suspected) exposure to COVID-19
CPT/HCPCS: 0241U; 36415; 80053; 83605; 83690; 84703; 85025; 96361; 96374; 96375; 99284; J1170; J2405; J7120

== ENCOUNTER 2022-07-23 04:16 | Emergency (ER) | payer BC ==
[2022-07-23] MEDS ORDERED: Morphine 4 MG/ML Syringe IVPUSH STA (04:21)
[2022-07-23] MEDS ORDERED: Dextrose 5%-Lactated Ringers 1,000 ML IV STA (04:21)
[2022-07-23 05:24] LABS: BLOOD UREA NITROGEN,BUN 14 mg/dL (7.0-18.0); CARBON DIOXIDE,CO2 26.3 mmol/L (21.0-32.0); CHLORIDE,CL 107 mmol/L (98-107); GLUCOSE RANDOM 111 mg/dL (74-106); LIPASE 69 U/L (73-393); POTASSIUM,K 3.8 mmol/L (3.5-5.1); SODIUM,NA 144 mmol/L (136-145)
[2022-07-23 05:26] LABS: ESTIMATED GFR 98 mL/min (>60)
[2022-07-23] MEDS ORDERED: Acetaminophen/HYDROcodone 325-5 MG Tab PO ONE (05:57)
== END 2022-07-23 06:52 | disposition home or self-care (01) ==
LOC: MW.ED 04:16
DX: R10.84 Generalized abdominal pain (principal)
CPT/HCPCS: 36415; 80053; 80307; 83690; 84703; 85025; 96361; 96374; 99284; A9270; J2270; J7121; 99283